=== PATIENT | male | born 1955 | race Caucasian/White ===

== ENCOUNTER 2022-12-27 06:20 | Emergency (ER) | payer MEDICARE, OTHER, SELFPAY ==
[2022-12-27] VITALS (13 sets, daily range): BP systolic 167–196; BP diastolic 90–114; PULSE 69–79; RESP 12–23; TEMP 36.9; O2SAT 97–98; BMI 39.2
--- NOTE | 2022-12-27 06:46 | ECG_ITS ---
[facility] Test Date: 2022-12-27 Pat Name: Kojo Saeed Department: Room: - Gender: Male Hospital Nurse Liaison: : 1955 Requested By: [id number] Order Number: [id number] Reading MD: VELASQUEZ MOJICA Measurements Intervals Telferner Rate: 77 P: 49 MD: 188 QRS: -69 QRSD: 138 T: 16 QT: 384 QTc: 416 Interpretive Statements 1100 Sinus rhythm 2450 Right bundle branch block 2630 Left anterior fascicular block 3113 Cannot rule out anterior myocardial infarction, probably old 9150 abnormal ECG No previous ECG available for comparison Electronically Signed On 12-29-2022 7:02:16 EST by VELASQUEZ MOJICA
--- NOTE | 2022-12-27 06:46 | XR_ITS ---
The [address] [address] Patient Name: JOCELYN HUSSEIN MRN: [id number] date: 1955 Sex: M Assigned Patient Location: ER Current Patient Location: ED.MAIN Accession/Order Number: [id number] Exam Date: 12/27/2022 06:50 Report Date: 12/27/2022 07:24 At the request of: VINCENZO BUSH Procedure: XR chest 1V EXAM: XR chest 1V HISTORY: Chest pain. COMPARISON: None. TECHNIQUE: AP erect portable chest radiograph performed. FINDINGS: The trachea is midline. The cardiac mediastinal silhouette and hilar shadows are unremarkable. The lung volumes are normal. The lung hammond are clear. Thorax. 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 XR/XR chest 1V IMPRESSION: There is no acute cardiopulmonary process. 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 Electronically authenticated by: ALKA HUNT Date: 12/27/2022 07:24
--- NOTE | 2022-12-27 07:11 | ED_ITS ---
HPI - Chest Pain General Chief Complaint: Chest Pain Stated Complaint: CHEST PAIN Time Seen by Provider: 12/27/22 06:46 Source: patient Mode of arrival: walk-in History of Present Illness HPI narrative: 67-year-old male presents for chest pain or it started four days ago. He thinks it might be related to him having difficulty starting his leaf blower and he was attempting to start it multiple times on two consecutive days with his left arm. The pain is on the left side of his chest and his elbow. The upper arm in the lower arm don't hurt. He has no cardiac history. No fever cough or direct injury. Related Data Allergies Allergy/AdvReac Type Severity Reaction Status Date / Time No Known Drug Allergies Allergy Verified 12/27/22 06:46 Review of Systems ROS Narrative A ten point review of systems is negative except as noted above. PFSH PFSH Social History Smoking status: Never smoker Exam Narrative Exam Narrative: Nurses note and vital signs reviewed and patient is not hypoxic. General: The patient appears well and in no apparent distress. Patient is resting comfortably on cart. Skin: Warm, dry, no pallor noted. There is no rash noted. Head: Normocephalic, atraumatic Eye: Normal conjunctiva, no drainage Ears, Nose, Mouth, and Throat: oral mucosa is moist. Nares patent. Cardiovascular: Regular Rate and Rhythm; minimal tenderness on palpation of the left chest musculature, no crepitus Respiratory: Patient is in no distress, no accessory muscle use, lungs are clear to auscultation, no wheezing, rales or rhonchi Back: non-tender GI: Normal bowel sounds, no tenderness to palpation, no masses appreciated. No rebound, guarding, or rigidity noted. Musculoskeletal: The patient has no evidence of calf tenderness, no pitting edema, symmetrical pulses noted bilaterally Neurological: A&O, normal speech Psychiatric: Cooperative Constitutional Vital Signs, click to edit/add: Last Vital Signs Temp 98.4 F 12/27/22 06:34 Pulse 78 12/27/22 07:50 Resp 14 12/27/22 07:50 BP 187/112 H 12/27/22 07:31 Pulse Ox 98 12/27/22 06:41 Course Vital Signs Vital signs: Vital Signs Temperature 98.4 F 12/27/22 06:34 Pulse Rate 73 12/27/22 06:34 Respiratory Rate 16 12/27/22 06:34 Blood Pressure 170/90 H 12/27/22 06:34 Temperature 98.4 F 12/27/22 06:34 Pulse Rate 78 12/27/22 07:50 Respiratory Rate 14 12/27/22 07:50 Blood Pressure 187/112 H 12/27/22 07:31 Pulse Oximetry 98 12/27/22 06:41 MDM - Chest Pain MDM Narrative Medical decision making narrative: his workup is negative including two troponins. The patient was given IV Toradol and his chest feels better. His left elbow is still sore. My clinical impression at this point is that this is muscle pain. He'll be discharged home and was recommended ibuprofen. Treatment diagnosis and follow-up were discussed with the patient. Differential Diagnosis Differential diagnosis: Likely pneumothorax, stable angina, unstable angina pectoris, atypical chest pain, st elevation myocardial infarction and costo chondritis Lab Data Attestation: I reviewed the patient's lab results. Labs: Lab Results 12/27/22 12/27/22 Range/Units 07:05 09:30 WBC 9.0 (4.0-11.0) 10^3/uL RBC 4.39 L (4.70-6.10) 10^6/uL Hgb 13.6 L (14.0-18.0) g/dL Hct 41.6 L (42.0-54.0) % MCV 94.8 H (80.0-94.0) fL MCH 31.0 (25.9-34.0) pg MCHC 32.7 (29.9-35.2) g/dL RDW 12.4 (11.0-15.0) % Plt Count 233 (150-450) 10^3/uL MPV 9.3 L (9.5-13.5) fL Neut % (Auto) 67.1 (43.0-75.0) % Lymph % (Auto) 15.9 L (20.5-60.0) % [place] % (Auto) 10.6 (1.7-12.0) % Eos % (Auto) 5.7 (0.9-7.0) % Baso % (Auto) 0.3 (0.2-2.0) % Neut # (Auto) 6.1 (1.4-6.5) 10^3/uL Lymph # (Auto) 1.4 (1.2-3.8) 10^3/uL [place] # (Auto) 1.0 H (0.3-0.8) 10^3/uL Eos # (Auto) 0.5 (0.0-0.7) 10^3/uL Baso # (Auto) 0.0 (0.0-0.1) 10^3/uL Abs Immat Gran (auto) 0.04 H (0.00-0.03) 10^3/uL Imm/Tot Granulo (auto) 0.4 (0.0-0.5) % PT 10.3 (9.0-11.6) sec INR 0.97 APTT 28.7 (22.3-36.2) sec Sodium 137 (136-145) mmol/L Potassium 4.5 (3.5-5.1) mmol/L Chloride 102 (98-107) mmol/L Carbon Dioxide 26.4 (21.0-32.0) mmol/L Anion Gap 13.1 BUN 26.0 H (7.0-18.0) mg/dL Creatinine 1.45 H (0.70-1.30) mg/dL Est GFR ( Amer) 59 L (>=60) Est GFR (Non-Af Amer) 48 L (>=60) BUN/Creatinine Ratio 17.9 Glucose 139 H (74-106) mg/dL Calcium 9.5 (8.5-10.1) mg/dL Total Bilirubin 0.8 (0.2-1.0) mg/dL AST 13 L (15-37) U/L ALT 21 (16-63) U/L Alkaline Phosphatase 96 (46-116) U/L Troponin I High Sens 5.8 5.8 (4.0-76.1) pg/mL Total Protein 8.2 (6.4-8.2) g/dL Albumin 4.4 (3.4-5.0) g/dL Globulin 3.8 g/dL Albumin/Globulin Ratio 1.2 Lipase 41.0 (16.0-77.0) U/L Imaging Data Chest x-ray: Radiologist's impression: Procedure: XR chest 1V EXAM: XR chest 1V HISTORY: Chest pain. COMPARISON: None. TECHNIQUE: AP erect portable chest radiograph performed. FINDINGS: The trachea is midline. The cardiac mediastinal silhouette and hilar shadows are unremarkable. The lung volumes are normal. The lung hammond are clear. Thorax. 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 IMPRESSION: There is no acute cardiopulmonary process. 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 Electronically authenticated by: ALKA HUNT Date: 12/27/2022 07:24 ECG Data Attestation: I personally reviewed and interpreted this ECG as follows: (EKG on my interpretation shows no acute findings) Heart Score History: Slightly/Non-Suspicious ECG: Normal Age: >65 years Risk Factors: 1 or 2 Risk Factors Troponin: <Normal Limit Total Heart Score Recommendations & Risks:: 3 Discharge Plan Discharge Chief Complaint: Chest Pain Clinical Impression: Chest wall pain Patient Disposition: Home, Self-Care Time of Disposition Decision: 10:00 Condition: Good Mode of Transportation: Private Vehicle Instructions: Chest Pain (ED), Chest Wall Pain (ED) Stand Alone Forms: Portal Instructions Referrals: Physician,Non-Staff, MD [Primary Care Provider] - 1 week
[2022-12-27 07:31] LABS: Basophils Percent Auto 0.3 % (0.2-2.0); Eosinophils Absolute Auto 0.5 10^3/uL (0.0-0.7); Eosinophils Percent Auto 5.7 % (0.9-7.0); Hematocrit 41.6 % (42.0-54.0); Hemoglobin 13.6 g/dL (14.0-18.0); Immature Granulocytes Abs Auto 0.04 10^3/uL (0.00-0.03); Immature Granulocytes Pct Auto 0.4 % (0.0-0.5); Lymphocytes Absolute Auto 1.4 10^3/uL (1.2-3.8); Lymphocytes Percent Auto 15.9 % (20.5-60.0); Mean Corpuscular HGB Conc 32.7 g/dL (29.9-35.2); Mean Corpuscular Volume 94.8 fL (80.0-94.0); Mean Platelet Volume 9.3 fL (9.5-13.5); Monocytes Percent Auto 10.6 % (1.7-12.0); Neutrophils Absolute Auto 6.1 10^3/uL (1.4-6.5); Neutrophils Percent Auto 67.1 % (43.0-75.0); Platelet Count 233 10^3/uL (150-450); Red Blood Count 4.39 10^6/uL (4.70-6.10); Red Cell Distribution Width 12.4 % (11.0-15.0)
[2022-12-27 07:50] LABS: Alanine Aminotransferase 21 U/L (16-63); Albumin Globulin Ratio 1.2; Albumin Level 4.4 g/dL (3.4-5.0); Alkaline Phosphatase 96 U/L (46-116); Anion Gap 13.1; Aspartate Amino Transferase 13 U/L (15-37); BUN Creatinine Ratio 17.9; Bilirubin Total 0.8 mg/dL (0.2-1.0); Calcium 9.5 mg/dL (8.5-10.1); Carbon Dioxide 26.4 mmol/L (21.0-32.0); Chloride 102 mmol/L (98-107); Estimated GFR (African America 59 (>=60); Estimated GFR (Non-African Ame 48 (>=60); Globulin 3.8 g/dL; Glucose 139 mg/dL (74-106); Potassium 4.5 mmol/L (3.5-5.1); Sodium 137 mmol/L (136-145); Total Protein 8.2 g/dL (6.4-8.2); Troponin I High Sensitivity 5.8 pg/mL (4.0-76.1)
[2022-12-27 07:54] LABS: INR 0.97; Partial Thromboplastin Time 28.7 sec (22.3-36.2); Prothrombin Time 10.3 sec (9.0-11.6)
[2022-12-27] MEDS: KETOROLAC TROMETHAMINE 30 MG/ML VIAL IVP (08:27)
[2022-12-27 09:55] LABS: Troponin I High Sensitivity 5.8 pg/mL (4.0-76.1)
== END 2022-12-27 10:12 | disposition home or self-care (01) ==
PROVIDERS: Student in an Organized Health Care Education/Training Program; Emergency Provider Emergency Medicine
DX: R07.89 Other chest pain (principal)
CPT/HCPCS: 36415; 71045; 80053; 83690; 84484; 85025; 85610; 85730; 93005; 96374; 99285

== ENCOUNTER 2023-09-06 09:20 | Outpatient (OUT) | payer MEDICARE, OTHER, SELFPAY ==
--- OUTSIDE RECORDS SUMMARY | 2023-09-06 09:30 | XMS_ITS | CCD ---
Author Organization [facility] Providers Care Director Of Patient Safety Name Role Phone PENELOPE WOMACK Primary Care Physician WOMACK ., DR PENELOPE George Primary Care Unavailable WOMACK ., DR PENELOPE George Admitting Unavailable WOMACK ., DR PENELOPE George Attending Unavailable WOMACK ., DR PENELOPE George Consulting Unavailable WOMACK ., DR PENELOPE George Primary Care Unavailable NILL ., DR BROWN Admitting Unavailable NILL ., DR BROWN Attending Unavailable NILL ., DR BROWN Consulting Unavailable FERNANDOFELICITY Hayes Consulting Unavailable GEMBUS, SAHIL Consulting Unavailable DERREK WHITMORE Consulting Unavailable WOMACK ., DR PENELOPE George Admitting Unavailable WOMACK ., DR PENELOPE George Attending Unavailable WOMACK ., DR PENELOPE George Consulting Unavailable WOMACK ., DR PENELOPE George Primary Care Unavailable WOMACK ., DR PENELOPE George Admitting Unavailable WOMACK ., DR PENELOPE George Attending Unavailable WOMACK ., DR PENELOPE George Consulting Unavailable WOMACK ., DR PENELOPE George Primary Care Unavailable NILL ., DR BROWN Admitting Unavailable NILL ., DR BROWN Attending Unavailable NILL ., DR BROWN Consulting Unavailable WOMACK ., DR PENELOPE George Primary Care Unavailable WOMACK ., DR PENELOPE George Primary Care Unavailable WOMACK ., DR PENELOPE George Admitting Unavailable WOMACK ., DR PENELOPE George Attending Unavailable WOMACK ., DR PENELOPE George Consulting Unavailable WOMACK ., DR PENELOPE George Primary Care Unavailable WOMACK ., DR PENELOPE George Admitting Unavailable WOMACK ., DR PENELOPE George Attending Unavailable WOMACK ., DR PENELOPE George Consulting Unavailable PENELOPE WOMACK Primary Care Physician Shivani Limon Primary Care Physician Shivani Limon. Attending Unavailable Shivani Limon Attending Unavailable Shivani Limon Attending Unavailable Shivani Limon Attending Unavailable Shivani Limon Attending Unavailable Shivani Limon Attending Unavailable Shivani Limon Attending Unavailable Shivani Limon Attending Unavailable Shivani Limno Admitting Unavailable Shivani Limon Attending Unavailable Shivani Limon Admitting Unavailable Shivani Limon Attending Unavailable Shivani Limon Admitting Unavailable Shivani Limon Attending Unavailable Robert Sandhu Attending Unavailable NANCY IZQUIERDO Attending Unavailable SHIVANI LIMON Referring Unavailable LIZ SHERMAN Attending Unavailable LIZ SHERMAN Referring Unavailable Allergies Allergy Classification Reported Allergen(s) Allergy Type Date of Onset Reaction(s) Facility (5 sources) Lisinopril; Translations: [lisinopril] Drug Allergy Unknown (qualifier value) General Surgery [place] (1 source) Amino Acids Drug Allergy [facility] Repository Medications Current Medications Medication Drug Class(es) Dates Sig (Normalized) Sig (Original) allopurinol 300 mg oral tablet (4 sources) Xanthine Oxidase Inhibitor Start: 06-23-2023 take 1 tablet by mouth once daily allopurinol 300 mg Tab See Instructions, TAKE 1 TABLET BY MOUTH EVERY DAY, # 90 tab(s), Refills(s) 1, Pharmacy: [id number], 170.2, cm, 01/03/23 9:22:00 EST, Height/Length Dosing, 112.5, kg, 06/23/23 8:09:00 EDT, Weight Dosing Start Date: 06/23/23 Status: Ordered Start: 12-06-2022 take 1 tablet by ubaldo th once daily allopurinol 300 mg Tab See Instructions, TAKE 1 TABLET BY MOUTH EVERY DAY, # 30 tab(s), Refills(s) 0, Pharmacy: [id number], 170.2, cm, 11/30/22 15:16:00 EDT, Height/Length Dosing, 114, kg, 11/30/22 15:16:00 EDT, Weight Dosing Start Date: 12/06/22 Status: Ordered Start: 11-03-2022 take 1 tablet by ubaldo th once daily allopurinol 300 mg Tab 300 mg = 1 tab(s), Oral, Daily, # 30 tab(s), Refills(s) 0, Pharmacy: [facility]/pharmacy #[id number], 170.2, cm, 06/01/22 8:48:00 EDT, Height/Length Dosing, 119.9, kg, 06/01/22 8:48:00 EDT, Weight Dosing Start Date: 11/03/22 Status: Ordered Start: 12-10-2021 take 1 tablet by ubaldo th once daily allopurinol 300 mg Tab 300 mg = 1 tab(s), Oral, Daily, Refills(s) 0 Start Date: 12/10/21 Status: Ordered atorvastatin 10 mg oral tablet (4 sources) HMG-CoA Reductase Inhibitor Start: 05-31-2023 take 1 tablet by mouth once daily atorvastatin 10 mg Tab See Instructions, TAKE 1 TABLET BY MOUTH EVERY DAY, # 30 tab(s), Refills(s) 0, Pharmacy: [facility] STORE [id number], 170.2, cm, 01/03/23 9:22:00 EST, Height/Length Dosing, 112.5, kg, 01/03/23 9:22:00 EST, Weight Dosing Start Date: 05/31/23 Status: Ordered Start: 12-30-2022 take 1 tablet by ubaldo once daily atorvastatin 10 mg Tab See Instructions, TAKE 1 TABLET BY MOUTH EVERY DAY, # 30 tab(s), Refills(s) 0, [id number] 170.2, cm, 12/30/22 15:16:00 EST, Height/Length Dosing, 112.6, kg, 12/30/22 15:16:00 EST, Weight Dosing Start Date: 12/30/22 Status: Ordered Start: 11-03-2022 take 1 tablet by ubaldo once daily atorvastatin 10 mg Tab 10 mg = 1 tab(s), Oral, Daily, # 30 tab(s), Refills(s) 0, [id number], 170.2, cm, 06/01/22 8:48:00 EDT, Height/Length Dosing, 119.9, kg, 06/01/22 8:48:00 EDT, Weight Dosing Start Date: 11/03/22 Status: Ordered Start: 12-10-2021 take 1 tablet by ubaldo once daily atorvastatin 10 mg Tab 10 mg = 1 tab(s), Oral, Daily, Refills(s) 0 Start Date: 12/10/21 Status: Ordered canagliflozin 100 mg oral tablet (3 sources) Sodium-Glucose Cotransporter 2 Inhibitor Start: 12-30-2022 take 1 tablet by mouth once daily Invokana 100 mg oral tablet 100 mg = 1 tab(s), Oral, Daily, # 30 tab(s), Refills(s) 0, [id number], 170.2, cm, 12/30/22 15:16:00 EST, Height/Length Dosing, 112.6, kg, 12/30/22 15:16:00 EST, Weight Dosing Start Date: 12/30/22 Status: Ordered Start: 06-30-2022 take 1 tablet by ubaldo th once daily Invokana 100 mg oral tablet 100 mg = 1 tab(s), Oral, Daily, # 30 tab(s), Refills(s) 0, [id number], 170.2, cm, 06/01/22 8:48:00 EDT, Height/Length Dosing, 119.9, kg, 06/01/22 8:48:00 EDT, Weight Dosing Start Date: 06/30/22 Status: Ordered hydroCHLOROthiazide 12.5 mg / losartan potassium 100 mg oral tablet (4 sources) Thiazide Diuretic, Angiotensin 2 Receptor Smooth Start: 04-04-2023 hydrochlorothiazide-losartan 12.5 mg-100 mg oral tablet 1 tab(s), Oral, Daily, 30 tab(s), Refill(s) 5, [id number] 170.[facility], cm, 01/03/23 9:22:00 EST, Height/Length Dosing, 112.5, kg, 01/03/23 9:22:00 EST, Weight Dosing Start Date: 04/04/23 Status: Ordered Start: 12-10-2021 take 1 tablet by ubaldo th once daily hydrochlorothiazide-losartan 12.5 mg-100 mg oral tablet 1 tab(s), Oral, Daily, Refill(s) 0 Start Date: 12/10/21 Status: Ordered levothyroxine sodium 0.075 mg oral tablet (3 sources) l-Thyroxine Start: 05-06-2023 take 1 tablet by mouth once daily levothyroxine 75 mcg (0.075 mg) Tab See Instructions, TAKE 1 TABLET BY MOUTH EVERY DAY, # 90 tab(s), Refills(s) 0, Pharmacy: [facility] STORE [id number], 170.2, cm, 01/03/23 9:22:00 EST, Height/Length Dosing, 112.5, kg, 01/03/23 9:22:00 EST, Weight Dosing Start Date: 05/06/23 Status: Ordered Start: 12-30-2022 take 1 tablet by ubaldo th once daily levothyroxine 75 mcg (0.075 mg) Tab See Instructions, TAKE 1 TABLET BY MOUTH EVERY DAY, # 90 tab(s), Refills(s) 0, [id number], 170.2, cm, 12/30/22 15:16:00 EST, Height/Length Dosing, 112.6, kg, 12/30/22 15:16:00 EST, Weight Dosing Start Date: 12/30/22 Status: Ordered Start: 09-20-2022 take 1 tablet by ubaldo once daily levothyroxine 75 mcg (0.075 mg) Tab See Instructions, TAKE 1 TABLET BY MOUTH EVERY DAY, # 90 tab(s), Refills(s) 0, Pharmacy: [facility] [id number], 170.2, cm, 06/01/22 8:48:00 EDT, Height/Length Dosing, 119.9, kg, 06/01/22 8:48:00 EDT, Weight Dosing Start Date: 09/20/22 Status: Ordered metFORMIN hydrochloride 500 mg oral tablet (4 sources) Biguanide Start: 12-30-2022 take 1 tablet by mouth three times daily metformin 500 mg Tab 500 mg = 1 tab(s), Oral, TID, # 270 tab(s), Refills(s) 1, [id number], 170.2, cm, 12/30/22 15:16:00 EST, Height/Length Dosing, 112.6, kg, 12/30/22 15:16:00 EST, Weight Dosing Start Date: 12/30/22 Status: Ordered Start: 09-17-2022 take 1 tablet by ubaldo three times daily metformin 500 mg Tab 500 mg = 1 tab(s), Oral, TID, # 270 tab(s), Refills(s) 1, [id number], 170.2, cm, 06/01/22 8:48:00 EDT, Height/Length Dosing, 119.9, kg, 06/01/22 8:48:00 EDT, Weight Dosing Start Date: 09/17/22 Status: Ordered Start: 12-10-2021 take 1 tablet by ubaldo th three times daily metformin 500 mg oral tablet 500 mg = 1 tab(s), Oral, TID, Refills(s) 0 Start Date: 12/10/21 Status: Ordered 24 hr metoprolol succinate 100 mg extended release oral tablet (4 sources) beta-Adrenergic Smooth Start: 12-30-2022 take 1 tablet by mouth once daily metoprolol 100 mg ER Tab 100 mg = 1 tab(s), Oral, Daily, # 90 tab(s), Refills(s) 3, Pharmacy: [facility]/pharmacy #[id number], 170.2, cm, 12/30/22 15:16:00 EST, Height/Length Dosing, 112.6, kg, 12/30/22 15:16:00 EST, Weight Dosing Start Date: 12/30/22 Status: Ordered Start: 06-01-2022 take 1 tablet by ubaldo th once daily metoprolol 100 mg ER Tab 100 mg = 1 tab(s), Oral, Daily, # 90 tab(s), Refills(s) 3, Pharmacy: [facility]/pharmacy #[id number], 170.2, cm, 06/01/22 8:48:00 EDT, Height/Length Dosing, 119.9, kg, 06/01/22 8:48:00 EDT, Weight Dosing Start Date: 06/01/22 Status: Ordered Start: 12-10-2021 take 1 tablet by ubaldo th once daily metoprolol 100 mg ER Tab 100 mg = 1 tab(s), Oral, Daily, Refills(s) 0 Start Date: 12/10/21 Status: Ordered mupirocin 0.02 mg/mg topical ointment (4 sources) RNA Synthetase Inhibitor Antibacterial Start: 06-01-2022 mupirocin Top 2% Oint 1 janell, Topical, TID, 30 gram, Refill(s) 1, [facility]/pharmacy #[id number], 170.2, cm, 06/01/22 8:48:00 EDT, Height/Length Dosing, 119.9, kg, 06/01/22 8:48:00 EDT, Weight Dosing Start Date: 06/01/22 Status: Ordered Start: 12-10-2021 mupirocin Top 2% Oint 1 janell, Topical, TID, Refill(s) 0 Start Date: 12/10/21 Status: Ordered Problems Active Problems Problem Classification Problem Date Documented Da te Episodic/Chronic Asthma (5 sources) Asthma; Translations: [Unspecified asthma, uncomplicated] Onset: 01-31-2022 12-10-2021 Chronic Calculus of urinary tract (4 sources) History of calculus of kidney 12-10-2021 Episodic Chronic kidney disease (3 sources) Chronic kidney disease stage 3A ; Translations: [Chronic kidney disease, stage 3a] Onset: 01-03-2023 Chronic Diabetes mellitus with complications (8 sources) Type 2 diabetes mellitus with unspecified complications; Translations: [Renal disorder due to type 2 diabetes mellitus] Onset: 12-16-2021 Chronic Diabetes mellitus without complication (5 sources) Diabetes mellitus; Translations: [Type 2 diabetes mellitus without complications] Onset: 06-10-2022 12-10-2021 Chronic Disorders of lipid metabolism (8 sources) Hyperlipidemia; Translations: [Hyperlipidemia, unspecified] Onset: 12-03-2021 12-10-2021 Chronic Essential hypertension (6 sources) Hypertensive disorder; Translations: [Essential (primary) hypertension] Onset: 06-10-2022 12-10-2021 Chronic Gout and other crystal arthropathies (5 sources) Gout; Translations: [Gout, unspecified] Onset: 06-10-2022 12-10-2021 Chronic Nonspecific chest pain (1 source) Chest pain 12-30-2022 Episodic Other ear and sense organ disorders (4 sources) Hearing loss 12-10-2021 Chronic Other male genital disorders (4 sources) Disorder of prostate 12-10-2021 Episodic Other male genital disorders (4 sources) Disorder of prostate, unspecified; Translations: [DISORDER OF PROSTATE UNSPECIFIED] Onset: 06-07-2022 Episodic Other nervous system disorders (4 sources) Gray's palsy 12-10-2021 Episodic Other non-traumatic joint disorders (1 source) Knee pain 06-23-2023 Episodic Other nutritional; endocrine; and metabolic disorders (1 source) Body mass index 40+ - severely obese 12-23-2021 Chronic Other nutritional; endocrine; and metabolic disorders (3 sources) Obese class III 06-01-2022 Chronic Other nutritional; endocrine; and metabolic disorders (1 source) Morbid obesity; Translations: [Morbid (severe) obesity due to excess calories] Onset: 01-03-2023 Chronic Other nutritional; endocrine; and metabolic disorders (1 source) Obese class II; Translations: [Body mass index (BMI) 38.0-38.9, adult] Onset: 01-03-2023 Chronic Residual codes; unclassified (4 sources) Obstructive sleep apnea syndrome 12-10-2021 Chronic Residual codes; unclassified (5 sources) Obstructive sleep apnea (adult) (pediatric); Translations: [OBSTRUCTIVE SLEEP APNEA] Onset: 01-08-2022 Chronic Spondylosis; intervertebral disc disorders; other back problems (4 sources) Sciatica 12-10-2021 Episodic Thyroid disorders (10 sources) Subclinical hypothyroidism; Translations: [Other specified hypothyroidism] Onset: 02-11-2022 12-10-2021 Chronic Unclassified (3 sources) Patient encounter status 12-23-2021 Unclassified (1 source) CONTACT W/AND (SUSP) EXPOS COVID-19; Translations: [CONTACT W/AND (SUSP) EXPOS COVID-19] Onset: 01-30-2022 Past or Other Problems Problem Classification Problem Date Documented Da te Episodic/Chronic Other aftercare (1 source) 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; Translations: [SENIOR CARE USE ORAL HYPOGLYCEMIC DX] Onset: 01-31-2022 Episodic Other aftercare (1 source) Other nursing home (current) drug therapy; Translations: [OTH SENIOR CARE CURRENT DRUG THERAPY] Onset: 01-31-2022 Episodic Other screening for suspected conditions (not mental disorders or infectious disease) (5 sources) Screening for malignant neoplasm of colon done; Translations: [Encounter for screening for malignant neoplasm of colon] Onset: 12-23-2021 Episodic Results Test Name Value Interpretation Reference Range Facil ity Surgical pathology studyon 0 08-22-2023 Surgical pathology study Pathology report.total SEE COMMENT Dermatopathology Report Case: [id number] Authorizing Provider: Jayy Garcia MD PhD Collected: 08/22/2023937 Ordering Location: [facility] Received: 08/22/2023937 [facility] Pathologist: Nabeel Mckoy MD Specimen: OUTSIDE BLOCK(S)/SLIDE(S), 2 SLIDES, [facility], #[id number] (BX: 07/20/23) Path report.final diagnosis SEE COMMENT 2 SLIDES, [facility], #[id number] (BX: 07/20/23) SKIN, RIGHT NOSE, SHAVE BIOPSY: MALIGNANT MELANOMA IN SITU, LENTIGO MALIGNA SUBTYPE, EXTENDING TO THE DEEP AND THE PERIPHERAL MARGINS IN THESE PLANES OF SECTION. Electronically signed out by NABEEL MCKOY MD Synoptic report SEE COMMENT MELANOMA OF THE SKIN: Biopsy MELANOMA OF THE SKIN: BIOPSY - A 8th Edition - Protocol posted: 05/13/2021 SPECIMEN Procedure: Biopsy, shave Specimen Laterality: Right TUMOR Tumor Site: Skin of other and unspecified parts of face: Right nose Histologic Type: Melanoma in situ, lentigo maligna type Ulceration: Not identified Tumor Regression: Not identified MARGINS: Margin Status for Melanoma in Situ: Melanoma in situ present at margin Margin(s) Involved by Melanoma in Situ: Peripheral: Both peripheral margins Margin(s) Involved by Melanoma in Situ: Deep: (via adnexal extension) PATHOLOGIC STAGE CLASSIFICATION (pTNM, AJCC 8th Edition): pT Category: pTis Comment(s): Tumor block is [facility] original case # [id number] Path report.relevant Hx Shave Tangential/Neoplasm of unspecified behavior of bone, soft tissue, and skin. Solar lentigo vs Lentigo maligna. 1.0 x 1.0 cm hyperpigmented patch. Path report.gross observation SEE COMMENT A. OUTSIDE BLOCK(S)/SLIDE(S). Received for consultation from [facility] are two slides labeled [id number] (Bx: 07/20/23) along with the corresponding pathology report. Path report.microscopic observation The Hematoxylin and Eosin stained sections of the trisected shave specimen reveals poorly nested atypical junctional melanocytes along the dermal-epidermal junction with confluence and pagetoid scatter. There is significant dermal solar elastosis. 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 The received deeper additional step sections were additionally reviewed. [facility] Ambulatory Comment on above: Order Comment: Mater ials Received: 2 SLIDES, [facility], #[id number] (BX: 07/20/23) Consultation Noteon 07-25-19 Consultation Note [id number] .00TIFF Normal [facility] Consultation Noteon 07-21-19 Consultation Note [id number]. 00TIFF Normal [facility] Ambulatory Visit Summaryon 0 06-30-2023 Ambulatory Visit Summary JOCELYN SAEED :1955 Visit Date:06/30/2023 Ambulatory Visit Instructions Your Diagnosis Type 2 diabetes mellitus with hyperlipidemia BMI 38.0-38.9,adult Class 1 obesity due to excess calories in adult Nonsmoker Hyperlipidemia, unspecified Your Care Team Attending Physician - Shivani Limon MD Primary Care Physician - Shivani Limon MD This Is Your Medications List empagliflozin (Jardiance 10 mg oral tablet) metformin (Glucophage XR 500 mg Tab-ER) Contact prescribing physician if questions or concerns allopurinol (allopurinol 300 mg Tab) atorvastatin (atorvastatin 10 mg Tab) hydrochlorothiazide-l osartan (hydrochlorothiazide- losartan 12.5 mg-100 mg oral tablet) levothyroxine (levothyroxine 75 mcg (0.075 mg) Tab) metoprolol (metoprolol 100 mg ER Tab) mupirocin topical (mupirocin Top 2% Oint) [Image Removed: STOP]Stop taking these medications canagliflozin (Invokana 100 mg oral tablet) Procedures Performed Cataract extraction, Cystoscopy, Lithotripsy, Tonsillectomy. Discharge Vitals Temperature (Temporal Artery) 36.4 ?C Heart Rate (Peripheral) 74 Respiratory Rate 18 Blood Pressure 150/84 Height 170.3 cm Height 67 in Weight 111.6 kg Weight 245.52 lb BMI 38.48 What to do next Scheduled Follow-Up Appointments 2023 10:30 AM EDT With: Shivani Limon MD Where: [facility] Invalid Interpretation Code [address] [place] [address]- \.br\ Tuesday 8:45 AM EST \.br\ With: Shivani Limon MD\.br\ Where: [facility] Medicine [facility] Office/Clini c Noteon 06-30-2023 [facility] Office/Clinic Note HPI Staff Jocelyn is a 68 year old male presenting for lab review, sugars have went way up labs done 06/23/23 glucose 217, Hgb A1C %: 10 % High (06/23/23 08:52:00) questions/concerns: History of Present Illness - Here for follow up - BS showed an A1c of a 10 - Pt states he did not watch what he ate and ate whatever he wanted - He has watched what he is eating now and BS are averaging in the 130s again. Physical Exam Vitals & Measurements T: 36.4 ?C(Temporal Artery) HR: 74(Peripheral) RR: 18 BP: 150/84 SpO2: 98% HT: 67 in HT: 170.3 cm WT: 111.6 kg WT: 245.52 lb BMI: 38.48 General: alert, no acute distress ENMT: oral mucosa moist, Cardiovascular: regular rate and rhythm, normal peripheral perfusion Respiratory: Lungs CTA, respirations non labored Extremities: no deformity, no trauma Neurological: oriented x 4, LOC appropriate for age, CN II-XII intact, motor strength equal & normal bilaterally, speech normal Abdomen: Soft, Nontender, Non-distended, + BS Assessment/Plan 1. Type 2 diabetes mellitus with hyperlipidemia (E11.69: Type 2 diabetes mellitus with other specified complication) - Will start Jardiance. - Change metformin - Follow up in 3 months 2. BMI 38.0-38.9,adult (Z68.38: Body mass index [BMI] 38.0-38.9, adult) - BMI education uploaded 3. Class 1 obesity due to excess calories in adult (E66.09: Other obesity due to excess calories) - Diet and exercise advised 4. Nonsmoker (Z78.9: Other specified health status) - Please continue to not smoke Hyperlipidemia, unspecified (E78.5: Hyperlipidemia, unspecified) - Continue on statins as before. - No issues with meds - Labs reviewed. Orders: empagliflozin, 10 mg = 1 tab(s), Oral, qAM, # 90 tab(s), Refills(s) 1, Pharmacy: [id number], 170.3, cm, 06/30/23 8:40:00 EDT, Height/Length Dosing, 111.6, kg, 06/30/23 8:40:00 EDT, Weight Dosing metformin, 1,000 mg = 2 tab(s), Oral, BID, # 390 tab(s), Refills(s) 0, Pharmacy: [facility]/pharmacy #[id number], 170.3, cm, 06/30/23 8:40:00 EDT, Height/Length Dosing, 111.6, kg, 06/30/23 8:40:00 EDT, Weight Dosing Follow-up No qualifying data available Patient Education BMI for Adults Problem List/Past Medical History Ongoing Asthma Gray's palsy Class 3 obesity Diabetic nephropathy Gout Hearing loss History of nephrolithiasis HTN (hypertension) Hyperlipidemia Left knee pain AVELINA (obstructive sleep apnea) Prostate disorder Sciatica Screening PSA (prostate specific antigen) Skin cancer screening Stage 3a chronic kidney disease (CKD) Subclinical hypothyroidism Type 2 diabetes mellitus with hyperlipidemia Historical No qualifying data Procedure/Surgical History Cataract extraction, Cystoscopy, Lithotripsy, Tonsillectomy. Medications allopurinol 300 mg Tab, See Instructions atorvastatin 10 mg Tab, See Instructions Glucophage XR 500 mg Tab-ER, 1000 mg= 2 tab(s), Oral, BID hydrochlorothiazide-l osartan 12.5 mg-100 mg oral tablet, 1 tab(s), Oral, Daily, 5 refills Jardiance 10 mg oral tablet, 10 mg= 1 tab(s), Oral, qAM, 1 refills levothyroxine 75 mcg (0.075 mg) Tab, See Instructions metoprolol 100 mg ER Tab, 100 mg= 1 tab(s), Oral, Daily, 3 refills mupirocin Top 2% Oint, 1 janell, Topical, TID, 1 refills Allergies lisinopril (Unknown) Social History Alcohol - Denies Alcohol Use, 12/23/2021 Substance Abuse - Denies Substance Abuse, 12/23/2021 Tobacco - Denies Tobacco Use, 12/23/2021 Never (less than 100 in lifetime) Tobacco Use:. Never Smokeless Tobacco Use:., 06/30/2023 Family History Cardiac arrest: Brother. Diabetes mellitus type 2: Mother and Brother. Heart disease: Father. Immunizations Vaccine Date Status Comments influenza virus vaccine, inactivated 11/30/2022 Given SARS-CoV-2 (COVID-19) [id number] 02/01/2022 Recorded influenza virus vaccine, inactivated 01/07/2022 Recorded influenza virus vaccine, inactivated 01/09/2021 Recorded SARS-CoV-2 (COVID-19) mRNA BNT-162b2 vax 12/16/2020 Recorded 2022-05-28: [id number] SARS-CoV-2 (COVID-19) mRNA BNT-162b2 vax 04/25/2020 Recorded 2022-05-28: [id number] SARS-CoV-2 (COVID-19) mRNA BNT-162b2 vax 04/04/2020 Recorded 2022-05-28: TPV65 pneumococcal 13-valent vaccine 12/21/2019 Recorded influenza virus vaccine, inactivated 12/21/2019 Recorded Normal [facility] Comment on above: Result Comment: Elec tronically Signed By: Geraldo HENDRICKS, Shivani Power.br\Date and Time Signed: 06/30/23 09:25 EDT Patient Educationon 06-30-19 Patient Education Nutrition BMI for Adults What is BMI? Body mass index (BMI) is a number that is calculated from a person's weight and height. BMI can help estimate how much of a person's weight is composed of fat. BMI does not measure body fat directly. Rather, it is an alternative to procedures that directly measure body fat, which can be difficult and expensive. BMI can help identify people who may be at higher risk for certain medical problems. What are BMI measurements used for? BMI is used as a screening tool to identify possible weight problems. It helps determine whether a person is obese, overweight, a healthy weight, or underweight. BMI is useful for: ? Identifying a weight problem that may be related to a medical condition or may increase the risk for medical problems. ? Promoting changes, such as changes in diet and exercise, to help reach a healthy weight. BMI screening can be repeated to see if these changes are working. How is BMI calculated? BMI involves measuring your weight in relation to your height. Both height and weight are measured, and the BMI is calculated from those numbers. This can be done either in [place] or metric measurements. Note that charts and online BMI calculators are available to help you find your BMI quickly and easily without having to do these calculations yourself. To calculate your BMI in [place] measurements: 1. Measure your weight in pounds (lb). 2. Multiply the number of pounds by 703. ? For example, for a person who weighs 180 lb, multiply that number by 703, which equals 126,540. 3. Measure your height in inches. Then multiply that number by itself to get a measurement called inches squared. ? For example, for a person who is 70 inches tall, the inches squared measurement is 70 inches x 70 inches, which equals 4,900 inches squared. 4. Divide the total from step 2 (number of lb x 703) by the total from step 3 (inches squared): 126,540 ? 4,900 = 25.8. This is your BMI. To calculate your BMI in metric measurements: 1. Measure your weight in kilograms (kg). 2. Measure your height in meters (m). Then multiply that number by itself to get a measurement called meters squared. ? For example, for a person who is 1.75 m tall, the meters squared measurement is 1.75 m x 1.75 m, which is equal to 3.1 meters squared. 3. Divide the number of kilograms (your weight) by the meters squared number. In this example: 70 ? 3.1 = 22.6. This is your BMI. What do the results mean? BMI charts are used to identify whether you are underweight, normal weight, overweight, or obese. The following guidelines will be used: ? Underweight: BMI less than 18.5. ? Normal weight: BMI between 18.5 and 24.9. ? Overweight: BMI between 25 and 29.9. ? Obese: BMI of 30 or above. Keep these notes in mind: ? Weight includes both fat and muscle, so someone with a muscular build, such as an athlete, may have a BMI that is higher than 24.9. In cases like these, BMI is not an accurate measure of body fat. ? To determine if excess body fat is the cause of a BMI of 25 or higher, further assessments may need to be done by a health care provider. ? BMI is usually interpreted in the same way for men and women. Where to find more information For more information about BMI, including tools to quickly calculate your BMI, go to these websites: ? Centers for Disease Control and Prevention: www.cdc.gov ? [place] Heart Association: www.heart.org ? National Heart, Lung, and Blood [employer]: www.nhlbi.nih.gov Summary ? Body mass index (BMI) is a number that is calculated from a person's weight and height. ? BMI may help estimate how much of a person's weight is composed of fat. BMI can help identify those who may be at higher risk for certain medical problems. ? BMI can be measured using Qatari measurements or metric measurements. ? BMI charts are used to identify whether you are underweight, normal weight, overweight, or obese. This information is not intended to replace advice given to you by your health care provider. Make sure you discuss any questions you have with your health care provider. Document Revised: 10/31/2019 Document Reviewed: 09/07/2019 [employer] Patient Education ? 2022 [employer]. [employer] [facility] Ambulatory Visit Summaryon 0 06-23-2023 Ambulatory Visit Summary JOCELYN SAEED :1955 Visit Date:06/23/2023 Ambulatory Visit Instructions Your Diagnosis Type 2 diabetes mellitus with hyperlipidemia Left knee pain Stage 3a chronic kidney disease (CKD) HTN (hypertension) BMI 38.0-38.9,adult Class 1 obesity due to excess calories in adult Nonsmoker Hyperlipidemia, unspecified Class 3 obesity Subclinical hypothyroidism AVELINA (obstructive sleep apnea) Gout Screening PSA (prostate specific antigen) Skin cancer screening Your Care Team Attending Physician - Shivani Limon MD Primary Care Physician - Shivani Lmion MD This Is Your Medications List allopurinol (allopurinol 300 mg Tab) atorvastatin (atorvastatin 10 mg Tab) canagliflozin (Invokana 100 mg oral tablet) hydrochlorothiazide-l osartan (hydrochlorothiazide- losartan 12.5 mg-100 mg oral tablet) levothyroxine (levothyroxine 75 mcg (0.075 mg) Tab) metformin (metformin 500 mg Tab) metoprolol (metoprolol 100 mg ER Tab) mupirocin topical (mupirocin Top 2% Oint) Procedures Performed Cataract extraction, Cystoscopy, Lithotripsy, Tonsillectomy. Discharge Vitals Temperature (Temporal Artery) 36.1 ?C Heart Rate (Peripheral) 64 Respiratory Rate 16 Blood Pressure 126/80 Weight 112.5 kg Weight 247.5 lb What to do next Scheduled Follow-Up Appointments Tuesday 8:00 AM EST With: Where: [facility] Invalid Interpretation Code [address] [place] [address]- \.br\ Someone Will Contact You Regarding These Appointments\.br \ [facility] External Ambulatory Referral, Orthopaedics, Dr. Marmolejo, 06/23/23 8:25:00 EDT, Type 2 diabetes mellitus with hyperlipidemia [facility] Ambulatory Visit Summary JOCELYN SAEED :1955 Visit Date:06/23/2023 Ambulatory Visit Instructions Your Diagnosis Type 2 diabetes mellitus with hyperlipidemia Left knee pain Stage 3a chronic kidney disease (CKD) HTN (hypertension) BMI 38.0-38.9,adult Class 1 obesity due to excess calories in adult Nonsmoker Hyperlipidemia, unspecified Class 3 obesity Subclinical hypothyroidism AVELINA (obstructive sleep apnea) Gout Screening PSA (prostate specific antigen) Skin cancer screening Your Care Team Attending Physician - Shivani Limon MD Primary Care Physician - Shivani Limon MD This Is Your Medications List allopurinol (allopurinol 300 mg Tab) atorvastatin (atorvastatin 10 mg Tab) canagliflozin (Invokana 100 mg oral tablet) hydrochlorothiazide-l osartan (hydrochlorothiazide- losartan 12.5 mg-100 mg oral tablet) levothyroxine (levothyroxine 75 mcg (0.075 mg) Tab) metformin (metformin 500 mg Tab) metoprolol (metoprolol 100 mg ER Tab) mupirocin topical (mupirocin Top 2% Oint) Procedures Performed Cataract extraction, Cystoscopy, Lithotripsy, Tonsillectomy. Discharge Vitals Temperature (Temporal Artery) 36.1 ?C Heart Rate (Peripheral) 64 Respiratory Rate 16 Blood Pressure 126/80 Weight 112.5 kg Weight 247.5 lb What to do next Scheduled Follow-Up Appointments Tuesday 8:00 AM EST With: Where: [facility] Invalid Interpretation Code [address] [place] [address]- \.br\ Someone Will Contact You Regarding These Appointments\.br \ [facility] External Ambulatory Referral, Orthopaedics, Dr. Marmolejo, 06/23/23 8:25:00 EDT, Type 2 diabetes mellitus with hyperlipidemia [facility] CBC w/ Auto Diffon 4 Basophils/100 WBC (Bld) 0.9 % Normal 0.0-2.0 [facility] Comment on above: Performed By: #### 1 0975600, 9008164, 46646170, 4062360, 8379636, 9627701, 046155561, 25676268 ####[facility] [address] [place] [address] Basophils/Leukocytes Auto (Bld) [Pure # fraction] 0.1 E9/L Normal 0.0-0.2 [facility] Comment on above: Performed By: #### 1 1183420, 0260820, 12133467, 1471428, 6853096, 6149727, 246037168, 11071841 ####[facility] [address] [place] [address] Eosinophils (Bld) [#/Vol] 0.6 E9/L High 0.0-0.5 [facility] Comment on above: Performed By: #### 1 7732273, 5018992, 61158554, 5066345, 8482199, 0794972, 626830798, 54945279 ####[address] [place] [address] Eosinophils/100 WBC (Bld) 7.7 % Normal 0.0-8.0 [facility] Comment on above: Performed By: #### 1 5181317, 8470694, 22019067, 2494373, 0425741, 4707794, 860952289, 46644117 ####[address] [place] [address] Erythrocyte distribution width (RBC) [Ratio] 13.9 % Normal 10.9-14.2 [facility] Comment on above: Performed By: #### 1 5572254, 6050952, 83225952, 2650122, 9642760, 0172289, 548142648, 11740558 ####[address] [place] [address] Hematocrit (Bld) [Volume fraction] 42.0 % Normal 37.7-49.0 [facility] Comment on above: Performed By: #### 1 0965046, 0328229, 15888058, 2755322, 4622272, 5831473, 756019165, 69673653 ####[address] [place] [address] Hemoglobin (Bld) [Mass/Vol] 13.9 g/dL Normal 13.5-17.5 [facility] Comment on above: Performed By: #### 1 1885041, 8651696, 25705300, 0373938, 5495045, 5949700, 101012644, 02024131 ####[address] [address] Lymphocytes (Bld) [#/Vol] 1.7 E9/L Normal 1.0-4.0 [facility] Comment on above: Performed By: #### 1 5472614, 9726958, 21459373, 0775741, 1151394, 3355457, 148756043, 95071683 ####[address] [address] Lymphocytes/100 WBC (Bld) 23.9 % Normal 14.0-50.0 [facility] Comment on above: Performed By: #### 1 3250878, 9576109, 75002361, 6816829, 0901172, 3102081, 859520057, 68442680 ####[address] [place] [address] MCH (RBC) [Entitic mass] 30.8 pg Normal 27.0-34.0 [facility] Comment on above: Performed By: #### 1 8462527, 8532153, 80728344, 3249863, 8036577, 7784455, 398076074, 18078913 ####[address] [address] MCHC (RBC) [Mass/Vol] 33.1 g/dL Normal 31.4-36.0 [facility] Comment on above: Performed By: #### 1 0162498, 2149529, 36409408, 8446320, 3374178, 1715691, 698047244, 45295157 ####[address] [place] [address] MCV (RBC) [Entitic vol] 93.0 fL Normal 80.0-100.0 [facility] Comment on above: Performed By: #### 1 1327034, 6538843, 04407343, 7493568, 4444345, 6363584, 439758916, 18532919 ####[address] [place] [address] Monocytes (Bld) [#/Vol] 0.8 E9/L Normal 0.2-1.0 [facility] Comment on above: Performed By: #### 1 9091356, 3122343, 22039370, 9437268, 0304496, 5764956, 664614638, 53757019 ####[address] [place] [address] Neutrophils (Bld) [#/Vol] 4.1 E9/L Normal 2.0-7.5 [facility] Comment on above: Performed By: #### 1 1704001, 5514855, 06561537, 6199176, 0247598, 8221189, 534126136, 32819979 ####[address] [place] [address] Neutrophils/100 WBC (Bld) 56.6 % Normal 36.0-75.0 [facility] Comment on above: Performed By: #### 1 0362937, 7253988, 58449866, 5037876, 7457730, 6979724, 878391110, 88065446 ####[address] [place] [address] Platelet mean volume (Bld) [Entitic vol] 8.6 fL Normal 6.4-10.8 [facility] Comment on above: Performed By: #### 1 4920311, 1310875, 02961461, 0521820, 2872040, 2549041, 435301449, 30426930 ####[facility] [address] [place] [address] Platelets (Bld) [#/Vol] 193.0 E9/L Normal 150.0-500.0 [facility] Comment on above: Performed By: #### 1 6980212, 3177969, 89408397, 5153727, 8006013, 4408285, 163492576, 17296907 ####[facility] [address] [place] [address] RBC (Bld) [#/Vol] 4.5 E12/L Normal 4.3-5.9 [facility] Comment on above: Performed By: #### 1 8884629, 7988247, 83901191, 8395146, 0316820, 6812020, 147057978, 11139267 ####[facility] [address] [place] [address] WBC corrected for nucl RBC Auto (Bld) [#/Vol] 7.3 E9/L Normal 4.0-11.0 [facility] Comment on above: Performed By: #### 1 6717337, 7519160, 60288828, 4606677, 8089638, 1908246, 024078707, 82368579 ####[facility] [address] [place] [address] CHEMISTRYOrdered By: SYSTEM SYSTEM on 06-23-2023 Albumin DL <= 20 mg/L (U) [Mass/Vol] 15.0 mg/dL High 0.0 - 1.9 mg/dL Remisol Chem Protein/Creatinine (U) [Ratio] 37.90 mg/gm Cr Normal 0.00 - 200.00 mg/gm Cr Remisol Chem U Creatinine 82.0 mg/dL Invalid Interpretation Code Remisol Chem Ur Total Protein 31.1 mg/dL Invalid Interpretation Code Remisol Chem Albumin [Mass/Vol] 4.3 g/dL Normal 3.3 - 5.0 gm/dL R emisol Chem Albumin/Globulin [Mass ratio] 1.4 {ratio} Normal 1.1 - 2.2 Remisol Chem ALP [Catalytic activity/Vol] 97 [iU]/d Normal 21 - 98 Int._Unit/L Remisol Chem ALT No additional P-5'-P [Catalytic activity/Vol] 17 [iU]/d Normal 6 - 46 Int._Unit/L Remisol Chem Anion gap [Moles/Vol] 15 mmol/L Normal 6 - 16 mEq/L Remisol Chem AST [Catalytic activity/Vol] 17 [iU]/d Normal 5 - 43 Int._Unit/L Remisol Chem Bilirubin [Mass/Vol] 0.7 mg/dL Normal 0.0 - 1.1 mg/dL Remisol Chem Calcium [Mass/Vol] 9.7 mg/dL Normal 8.9 - 11.1 mg/dL Remisol Chem Chloride [Moles/Vol] 104 mmol/L Normal 101 - 111 mmol/ L Remisol Chem Cholesterol [Mass/Vol] 171 mg/dL Normal 120 - 200 mg/dL Remisol Chem Cholesterol in HDL [Mass/Vol] 32 mg/dL Invalid Interpretation Code Remisol Chem Comment on above: Result Comment: '>= 60 LOW RISK' '<= 40 HIGH RISK' Cholesterol in LDL [Mass/Vol] 73 mg/dL Normal <=129mg/dL Remisol Chem CO2 [Moles/Vol] 23 mmol/L Normal 21 - 31 mmol/L Remis ol Chem Creatinine [Mass/Vol] 1.4 mg/dL High 0.5 - 1.3 mg/dL Remisol Chem eGFR 54 mL/min/1.73 m2 Low >=59mL/min /1.73 m2 Remisol Chem Globulin (S) [Mass/Vol] 3.1 g/dL Normal 1.4 - 4.0 gm/dL Remisol Chem Glucose [Mass/Vol] 217 mg/dL High 55 - 199 mg/dL Re misol Chem Potassium [Moles/Vol] 4.7 mmol/L Normal 3.5 - 5.3 mmol/L Remisol Chem Prostate specific Ag [Mass/Vol] 3.5 ng/mL Normal 0.1 - 3.5 ng/mL [facility] Chem Comment on above: Interpretive Data: T he concentration of PSA determined by different manufacturers can vary due to differences in assay methods and reagent specificity. Values obtained from different assay methods cannot be used interchangeably. The methodology used for this result was chemiluminescence using [employer]'s Access Hybritech PSA reagent. Protein [Mass/Vol] 7.4 g/dL Normal 6.0 - 7.8 gm/dL R emisol Chem Sodium [Moles/Vol] 137 mmol/L Normal 135 - 145 mmol/L Remisol Chem Triglyceride [Mass/Vol] 431 mg/dL High <=149mg/dL Remisol Chem TSH Qn 2.61 m[IU]/L Normal 0.34 - 5.60 mcIU/mL Remisol Chem Urate (U) [Mass/Vol] 4.6 mg/dL Normal 2.2 - 7.4 mg/dL Remisol Chem Urea nitrogen [Mass/Vol] 33 mg/dL High 5 - 21 mg/dL Remisol Chem Urea nitrogen/Creatinine [Mass ratio] 24 mg/mg High 10 - 20 Remisol Chem VLDL Unable to Calculate mg/dL Invalid Interpretation Code 7 - 40 mg/dL Remisol Chem Comment on above: Result Comment: 'ELLI BLE TO REPORT. TRIG > 400 mg/dl' CHEMISTRYOrdered By: Ela Smith on 06-23-2023 HbA1c (Bld) [Mass fraction] 10.0 % High <=5.9% [facility] ChemAutoSS CMPon 06-23-2023 Albumin [Mass/Vol] 4.3 g/dL Normal 3.3-5.0 [facility] Comment on above: Performed By: #### 1 8862279, 2107802, 13673537, 9073931, 6071553, 8559959, 912237416, 21604328 ####[facility] [address] [place] [address] Albumin/Globulin (S) [Mass conc ratio] 1.4 Normal 1.1-2.2 [facility] Comment on above: Performed By: #### 1 4495471, 5572873, 08977347, 7122058, 9414579, 2150759, 352142416, 66515467 ####[facility] [address] [place] [address] ALP [Catalytic activity/Vol] 97 Int._Unit/L Normal 21-98 [facility] Comment on above: Performed By: #### 1 7422044, 5195675, 20766197, 4807916, 8128372, 2698584, 827460616, 33177957 ####[facility] [address] [place] [address] ALT No additional P-5'-P [Catalytic activity/Vol] 17 Int._Unit/L Normal 6-46 [facility] Comment on above: Performed By: #### 1 2389825, 8681377, 47939516, 1501535, 8608797, 4095588, 455863218, 24589823 ####[facility] [address] [place] [address] AST [Catalytic activity/Vol] 17 Int._Unit/L Normal 5-43 [facility] Comment on above: Performed By: #### 1 0679183, 2472426, 78094039, 7016900, 7315403, 5193690, 586603161, 55597194 ####[facility] [address] [place] [address] Bilirubin [Mass/Vol] 0.7 mg/dL Normal 0.0-1.1 [facility] Comment on above: Performed By: #### 1 0051193, 2959016, 09924232, 4821840, 8139974, 3368754, 698554610, 88798138 ####[facility] [address] [place] [address] Globulin (S) [Mass/Vol] 3.1 g/dL Normal 1.4-4.0 [facility] Comment on above: Performed By: #### 1 9410058, 3309019, 06285730, 7661930, 3770965, 1369420, 595093855, 42613739 ####[facility] [address] [place] [address] Protein [Mass/Vol] 7.4 g/dL Normal 6.0-7.8 [facility] Comment on above: Performed By: #### 1 2154865, 9175973, 06454893, 1666643, 8983827, 5047563, 911892698, 12146999 ####[facility] [address] [place] [address] Anion gap [Moles/Vol] 15 mmol/L Normal 6-16 [facility] Comment on above: Performed By: #### 1 7964119, 0457400, 87084598, 8522757, 5665281, 3358020, 464189589, 00788133 ####[facility] [address] [place] [address] Calcium [Mass/Vol] 9.7 mg/dL Normal 8.9-11.1 [facility] Comment on above: Performed By: #### 1 1242404, 3879690, 69994965, 1208063, 3466189, 3542322, 581258873, 50839529 ####[facility] [address] [place] [address] Chloride [Moles/Vol] 104 mmol/L Normal 101-111 [facility] Comment on above: Performed By: #### 1 5573184, 9127666, 08353228, 8601513, 3801826, 9422463, 633695410, 61651359 ####[facility] [address] [place] [address] CO2 [Moles/Vol] 23 mmol/L Normal 21-31 [facility] Comment on above: Performed By: #### 1 9625188, 0981220, 73117444, 4982679, 6933367, 1893998, 674582492, 34307026 ####[facility] [address] [place] [address] Creatinine [Mass/Vol] 1.4 mg/dL High 0.5-1.3 [facility] Comment on above: Performed By: #### 1 2251205, 1765484, 31359423, 9976380, 0292830, 0483137, 270852711, 59797199 ####[facility] [address] [place] [address] Glucose [Mass/Vol] 217 mg/dL High 55-199 [facility] Comment on above: Performed By: #### 1 8099870, 6706013, 60322052, 7174355, 1111117, 7024231, 330032933, 18437016 ####[facility] [address] [place] [address] Potassium [Moles/Vol] 4.7 mmol/L Normal 3.5-5.3 [facility] Comment on above: Performed By: #### 1 0098077, 5305490, 38476906, 3174225, 8527676, 8244646, 791545513, 90751985 ####[facility] [address] [place] [address] Sodium [Moles/Vol] 137 mmol/L Normal 135-145 [facility] Comment on above: Performed By: #### 1 7302704, 7914523, 95146647, 2786726, 1553805, 4777772, 778897006, 09294965 ####[facility] [address] [place] [address] Urea nitrogen [Mass/Vol] 33 mg/dL High 5-21 [facility] Comment on above: Performed By: #### 1 3031770, 8318629, 42125908, 9095714, 3305747, 0312020, 709765098, 27866587 ####[facility] [address] [place] [address] Urea nitrogen/Creatinine [Mass ratio] 24 No Units High 10-20 [facility] Comment on above: Performed By: #### 1 7519803, 6678871, 78147144, 8975352, 8513244, 1786237, 716558679, 49896487 ####[facility] [address] [place] [address] [facility] Medicine Office/Clini c Noteon 06-23-2023 Family Medicine Office/Clinic Note HPI Staff Jocelyn is a 68 year old male presenting for 6 month follow up HTN, DM, CKD Do you have any of the following symptoms? Foot Exam: none Eye Exam: UTD Last A1C: Hgb A1C %: 6.8 % High (11/30/22 16:04:00) Statin: atorvastatin 10mg Patient is here for follow up on hypertension. How often are you checking your blood pressure? Doesnt check BP at home What are your average readings? N/A, Not checking at home Yearly BMP: 11/30/22 questions/concerns: feels he had an A1C done somewhere and it was 8 something wants to talk about his left knee, [address] Marmolejo told him he'd need a replacement, did the chicken/rooster shot and it worked but not anymore History of Present Illness BS are WNL per the patient. - Only concern is the L knee, Saw ortho for injections and now is wondering if he needs a replacement. - HTN: Normal today. - Reviewed life screening. Review of Systems PHQ Score Initial Depression Screen Score: 0 SCORE Physical Exam Vitals & Measurements T: 36.1 ?C(Temporal Artery) HR: 64(Peripheral) RR: 16 BP: 126/80 SpO2: 99% WT: 112.5 kg WT: 247.5 lb General: alert, no acute distress ENMT: oral mucosa moist, Cardiovascular: regular rate and rhythm, normal peripheral perfusion Respiratory: Lungs CTA, respirations non labored Extremities: no deformity, no trauma Neurological: oriented x 4, LOC appropriate for age, CN II-XII intact, motor strength equal & normal bilaterally, speech normal Abdomen: Soft, Nontender, Non-distended, + BS Assessment/Plan 1. Type 2 diabetes mellitus with hyperlipidemia (E11.69: Type 2 diabetes mellitus with other specified complication) - Was uncontrolled - Not taking Invokana - May need to increase meds - Labs ordered to recheck Ordered: Body Mass Index (BMI) documented 3008F CBC w/ Auto Diff Complex E&M Add on G2211 Comprehensive Metabolic Panel Current tobacco non-user 1036F Depression Screening Negative 3352F E&M of Est. Patient Moderate 30-39 Min 16416 [facility] External Ambulatory Referral [facility] External Ambulatory Referral HgbA1c Influenza immunization administered or previously received 4274F Lipid Panel Microalbumin Level Urine Most recent diastolic blood pressure 80-89 mm Hg 3079F Patient screen for fall risk: no falls in last year or 1 fall with no injury in last year 1101F PSA Screen, Total Systolic BP <130 mm Hg (Most Recent) 3074F TSH With T4fr Reflex U Protein/Creat Ratio Uric Acid 2. Left knee pain (M25.562: Pain in left knee) - Will refer Ordered: Complex E&M Add on G2211 E&M of Est. Patient Moderate 30-39 Min 22945 [facility] External Ambulatory Referral [facility] External Ambulatory Referral Uric Acid 3. Stage 3a chronic kidney disease (CKD) (N18.31: Chronic kidney disease, stage 3a) - Will recheck today Ordered: Body Mass Index (BMI) documented 3008F CBC w/ Auto Diff Complex E&M Add on G2211 Comprehensive Metabolic Panel Current tobacco non-user 1036F Depression Screening Negative 3352F E&M of Est. Patient Moderate 30-39 Min 22103 [facility] External Ambulatory Referral [facility] External Ambulatory Referral HgbA1c Influenza immunization administered or previously received 4274F Lipid Panel Microalbumin Level Urine Most recent diastolic blood pressure 80-89 mm Hg 3079F Patient screen for fall risk: no falls in last year or 1 fall with no injury in last year 1101F PSA Screen, Total Systolic BP <130 mm Hg (Most Recent) 3074F TSH With T4fr Reflex U Protein/Creat Ratio Uric Acid 4. HTN (hypertension) (I10: Essential (primary) hypertension) - At goal. - Will refill meds as needed - No issues with meds Ordered: Body Mass Index (BMI) documented 3008F CBC w/ Auto Diff Complex E&M Add on G2211 Comprehensive Metabolic Panel Current tobacco non-user 1036F Depression Screening Negative 3352F E&M of Est. Patient Moderate 30-39 Min 54315 [facility] External Ambulatory Referral [facility] External Ambulatory Referral HgbA1c Influenza immunization administered or previously received 4274F Lipid Panel Microalbumin Level Urine Most recent diastolic blood pressure 80-89 mm Hg 3079F Patient screen for fall risk: no falls in last year or 1 fall with no injury in last year 1101F PSA Screen, Total Systolic BP <130 mm Hg (Most Recent) 3074F TSH With T4fr Reflex U Protein/Creat Ratio Uric Acid 5. BMI 38.0-38.9,adult (Z68.38: Body mass index [BMI] 38.0-38.9, adult) - BMI education given Ordered: Body Mass Index (BMI) documented 3008F CBC w/ Auto Diff Complex E&M Add on G2211 Comprehensive Metabolic Panel Current tobacco non-user 1036F Depression Screening Negative 3352F E&M of Est. Patient Moderate 30-39 Min 13343 [facility] External Ambulatory Referral [facility] External Ambulatory Referral HgbA1c Influenza immunization administered or previously received 4274F Lipid Panel Microalbumin Level Urine Most recent diastolic blood pressure 80-89 mm Hg 3079F Patient s (more content not included)... Normal [facility] Comment on above: Result Comment: Elec tronically Signed By: Geraldo HENDRICKS, Shivani Power.br\Date and Time Signed: 06/23/23 08:34 EDT HEMATOLOGYOrdered By: SYSTEM SYSTEM on 06-23-2023 Basophils/100 WBC (Bld) 0.9 % Normal 0.0 - 2.0 % Remisol Heme Basophils/Leukocytes Auto (Bld) [Pure # fraction] 0.1 E9/L Normal 0.0 - 0.2 E9/L Remisol Heme Eosinophils (Bld) [#/Vol] 0.6 E9/L High 0.0 - 0.5 E9/L Remisol Heme Eosinophils/100 WBC (Bld) 7.7 % Normal 0.0 - 8.0 % Remisol Heme Erythrocyte distribution width (RBC) [Ratio] 13.9 % Normal 10.9 - 14.2 % Remisol Heme Hematocrit (Bld) [Volume fraction] 42.0 % Normal 37.7 - 49.0 % Remisol Heme Hemoglobin (Bld) [Mass/Vol] 13.9 g/dL Normal 13.5 - 17.5 gm/dL Remisol Heme Lymphocytes (Bld) [#/Vol] 1.7 E9/L Normal 1.0 - 4.0 E9/L Remisol Heme Lymphocytes/100 WBC (Bld) 23.9 % Normal 14.0 - 50.0 % Remisol Heme MCH (RBC) [Entitic mass] 30.8 pg Normal 27.0 - 34.0 pg Remisol Heme MCHC (RBC) [Mass/Vol] 33.1 g/dL Normal 31.4 - 36.0 gm/dL Remisol Heme MCV (RBC) [Entitic vol] 93.0 fL Normal 80.0 - 100.0 fL Remisol Heme Monocytes (Bld) [#/Vol] 0.8 E9/L Normal 0.2 - 1.0 E9/L Remisol Heme Monocytes/100 WBC (Bld) 10.9 % Normal 4.0 - 14.0 % Remisol Heme Neutrophils (Bld) [#/Vol] 4.1 E9/L Normal 2.0 - 7.5 E9/L Remisol Heme Neutrophils/100 WBC (Bld) 56.6 % Normal 36.0 - 75.0 % Remisol Heme Platelet mean volume (Bld) [Entitic vol] 8.6 fL Normal 6.4 - 10.8 fL Remisol Heme Platelets (Bld) [#/Vol] 193.0 E9/L Normal 150.0 - 500.0 E9/L Remisol Heme RBC (Bld) [#/Vol] 4.5 E12/L Normal 4.3 - 5.9 E12/L Re misol Heme WBC corrected for nucl RBC Auto (Bld) [#/Vol] 7.3 E9/L Normal 4.0 - 11.0 E9/L Remisol Heme [id number] 06-23-2023 HbA1c (Bld) [Mass fraction] 10.0 % High <=5.9 [facility] Comment on above: Performed By: #### 1 [id number], 6074633, [id number], 9688343, 6567573, 1847040, [id number], [id number] ####[facility] [address] [place] [address] Lipid Panelon 06-23-2023 VLDL UT Abnormal 7-40 [facility] Comment on above: Result Comment: 'ELLI BLE TO REPORT. TRIG > 400 mg/dl' Result verified by Discern Rule. Performed result [facility] (Unable to Calculate) was sent as an Alpha code due the inability to calculate a valid numeric value. Performed By: #### 1 [id number], 1673919, [id number], 5925643, 2050634, 9121851, [id number], [id number] ####[facility] [address] [place] [address] Cholesterol [Mass/Vol] 171 mg/dL Normal 120-200 [facility] Comment on above: Performed By: #### 1 [id number], 6986154, 40971848, 3815964, 3382996, 2416292, [id number], [id number] ####[facility] [address] [place] [address] Cholesterol in HDL [Mass/Vol] 32 mg/dL Invalid Interpretation Code [facility] Comment on above: Result Comment: '>= 60 LOW RISK' '<= 40 HIGH RISK' Performed By: #### 1 [id number], 4832903, 76995567, 2559712, 5049907, 4618674, [id number], [id number] ####[facility] [address] [place] [address] Cholesterol in LDL [Mass/Vol] 73 mg/dL Normal <=129 [facility] Comment on above: Performed By: #### 1 5650150, 1031335, 02368545, 7152483, 5421181, 0980348, [id number], 64218499 ####[facility] [address] [place] [address] Triglyceride [Mass/Vol] 431 mg/dL High <=149 [facility] Comment on above: Performed By: #### 1 7208541, 7751746, 87701329, 0901699, 1657811, 5258536, [id number], 26573159 ####[facility] [address] [place] [address] PSA Screen, Totalon 06-23-19 24 Prostate specific Ag [Mass/Vol] 3.5 ng/mL Normal 0.1-3.5 [facility] Comment on above: Result Comment: The concentration of PSA determined by different manufacturers can vary due to differences in assay methods and reagent specificity. Values obtained from different assay methods cannot be used interchangeably. The methodology used for this result was chemiluminescence using [employer]'s Access Hybritech PSA reagent. Performed By: #### 1 [id number], 4242403, 21383739, 0041192, 5771608, 6641208, [id number], 28762710 ####[facility] [address] [address] Patient Educationon 06-23-19 Patient Education Nutrition BMI for Adults What is BMI? Body mass index (BMI) is a number that is calculated from a person's weight and height. BMI can help estimate how much of a person's weight is composed of fat. BMI does not measure body fat directly. Rather, it is an alternative to procedures that directly measure body fat, which can be difficult and expensive. BMI can help identify people who may be at higher risk for certain medical problems. What are BMI measurements used for? BMI is used as a screening tool to identify possible weight problems. It helps determine whether a person is obese, overweight, a healthy weight, or underweight. BMI is useful for: ? Identifying a weight problem that may be related to a medical condition or may increase the risk for medical problems. ? Promoting changes, such as changes in diet and exercise, to help reach a healthy weight. BMI screening can be repeated to see if these changes are working. How is BMI calculated? BMI involves measuring your weight in relation to your height. Both height and weight are measured, and the BMI is calculated from those numbers. This can be done either in [place] or metric measurements. Note that charts and online BMI calculators are available to help you find your BMI quickly and easily without having to do these calculations yourself. To calculate your BMI in [place] measurements: 1. Measure your weight in pounds (lb). 2. Multiply the number of pounds by 703. ? For example, for a person who weighs 180 lb, multiply that number by 703, which equals 126,540. 3. Measure your height in inches. Then multiply that number by itself to get a measurement called inches squared. ? For example, for a person who is 70 inches tall, the inches squared measurement is 70 inches x 70 inches, which equals 4,900 inches squared. 4. Divide the total from step 2 (number of lb x 703) by the total from step 3 (inches squared): 126,540 ? 4,900 = 25.8. This is your BMI. To calculate your BMI in metric measurements: 1. Measure your weight in kilograms (kg). 2. Measure your height in meters (m). Then multiply that number by itself to get a measurement called meters squared. ? For example, for a person who is 1.75 m tall, the meters squared measurement is 1.75 m x 1.75 m, which is equal to 3.1 meters squared. 3. Divide the number of kilograms (your weight) by the meters squared number. In this example: 70 ? 3.1 = 22.6. This is your BMI. What do the results mean? BMI charts are used to identify whether you are underweight, normal weight, overweight, or obese. The following guidelines will be used: ? Underweight: BMI less than 18.5. ? Normal weight: BMI between 18.5 and 24.9. ? Overweight: BMI between 25 and 29.9. ? Obese: BMI of 30 or above. Keep these notes in mind: ? Weight includes both fat and muscle, so someone with a muscular build, such as an athlete, may have a BMI that is higher than 24.9. In cases like these, BMI is not an accurate measure of body fat. ? To determine if excess body fat is the cause of a BMI of 25 or higher, further assessments may need to be done by a health care provider. ? BMI is usually interpreted in the same way for men and women. Where to find more information For more information about BMI, including tools to quickly calculate your BMI, go to these websites: ? Centers for Disease Control and Prevention: www.cdc.gov ? [place] Heart Association: www.heart.org ? National Heart, Lung, and Blood [employer]: www.nhlbi.nih.gov Summary ? Body mass index (BMI) is a number that is calculated from a person's weight and height. ? BMI may help estimate how much of a person's weight is composed of fat. BMI can help identify those who may be at higher risk for certain medical problems. ? BMI can be measured using [place] measurements or metric measurements. ? BMI charts are used to identify whether you are underweight, normal weight, overweight, or obese. This information is not intended to replace advice given to you by your health care provider. Make sure you discuss any questions you have with your health care provider. Document Revised: 10/31/2019 Document Reviewed: 09/07/2019 [employer] Patient Education ? 2022 [employer]. [facility] Physician Referralon 024 Physician Referral [id number]# 1.00TIFF Normal [facility] Physician Referral [id number]# 1.00TIFF Normal [facility] TSH With T4fr Reflexon 06-22 TSH Qn 2.61 m[IU]/L Normal 0.34-5.60 [facility] Comment on above: Performed By: #### 1 8202496, 5539307, 14812710, 9309399, 3604025, 4955403, 177561291, 48524652 ####[facility] [address] [place] [address] U Microalbon 06-23-2023 Albumin DL <= 20 mg/L (U) [Mass/Vol] 15.0 mg/dL High 0.0-1.9 [facility] Comment on above: Order Comment: Jasmine barbour office Performed By: #### 1 [id number], [id number] ####[facility] [address] [place] [address] U Protein/Creat Ratioon Protein/Creatinine (U) [Ratio] 37.90 mg/gm Cr Normal .00-200.00 [facility] Comment on above: Performed By: #### 1 1547183, [id number] ####[facility] [address] [place] [address] U Creatinine 82.0 mg/dL Invalid Interpretation Code [facility] Comment on above: Performed By: #### 1 2684931, [id number] ####[facility] [address] [place] [address] Ur Total Protein 31.1 mg/dL Invalid Interpretation Code [facility] Comment on above: Performed By: #### 1 2044044, [id number] ####[facility] [address] [place] [address] Uric Acidon 06-23-2023 Urate (U) [Mass/Vol] 4.6 mg/dL Normal 2.2-7.4 [facility] Comment on above: Performed By: #### 1 6952675, 1143599, 29671570, 6306488, 6518942, 9221685, 935129888, 96446771 ####[facility] [address] [place] [address] eGFRon 06-23-2023 eGFR 54 mL/min/1.73 m2 Low >=59 [facility] Comment on above: Order Comment: Order added by Discern Expert. Performed By: #### 1 2563659, 7266436, 39208193, 2406729, 3043062, 8829201, 086685796, 85735896 ####[facility] [address] [place] [address] Lab Reportson 04-26-2023 Lab Reports [id number]#1 .00TIFF Normal [facility] Outside Diabetes Eye Examon 01-19-2023 Outside Diabetes Eye Exam [id number]#1. 00TIFF Normal [facility] ECG 12-Leadon 01-06-2023 ECG 12-Lead [id number]#1 .00TIFF Normal [facility] ED Note-Physicianon 01-07-20 ED Note-Physician [id number]# 1.00TIFF Normal [facility] Lab Reportson 01-06-2023 Lab Reports [id number]# 1.00TIFF Normal [facility] RAD - MISCon 01-06-2023 RAD - MISC [id number]# 1.00TIFF Normal [facility] Ambulatory Visit Summaryon 03-05-2022 Ambulatory Visit Summary JOCELYN SAEED :1955 Visit Date:01/03/2023 Ambulatory Visit Instructions Your Diagnosis Encounter for subsequent annual wellness visit (AWV) in Medicare patient Diabetic nephropathy HTN (hypertension) Hyperlipidemia, Hyperlipidemia, unspecified Stage 3a chronic kidney disease (CKD) Subclinical hypothyroidism Type 2 diabetes mellitus with hyperlipidemia Class 3 obesity Adult BMI 38.0-38.9 kg/sq m Your Care Team Attending Physician - Robert Sandhu DO Primary Care Physician - Shivani Limon MD This Is Your Medications List allopurinol (allopurinol 300 mg Tab) atorvastatin (atorvastatin 10 mg Tab) canagliflozin (Invokana 100 mg oral tablet) hydrochlorothiazide-l osartan (hydrochlorothiazide- losartan 12.5 mg-100 mg oral tablet) levothyroxine (levothyroxine 75 mcg (0.075 mg) Tab) metformin (metformin 500 mg Tab) metoprolol (metoprolol 100 mg ER Tab) mupirocin topical (mupirocin Top 2% Oint) Procedures Performed Cataract extraction, Cystoscopy, Lithotripsy, Tonsillectomy. Discharge Vitals Heart Rate (Peripheral) 70 Respiratory Rate 16 Blood Pressure 132/80 Height 170.2 cm Height 67 in Weight 112.5 kg Weight 247.5 lb BMI 38.84 What to do next Scheduled Follow-Up Appointments June. 2023 8:00 AM EDT With: Shivani Limon MD Where: [place] [id number]- \.br\ Medications\.br\ What How Much When Instructions\.br \ Unchanged allopurinol (allopurinol 300 mg Tab) See instructions TAKE 1 TABLET BY MOUTH EVERY DAY \.br\ Unchanged atorvastatin (atorvastatin 10 mg Tab) See instructions TAKE 1 TABLET BY MOUTH EVERY DAY \.br\ Unchanged canagliflozin (Invokana 100 mg oral tablet) 1 Tablets By Mouth Every day\.br\ Unchanged hydrochlorothiaz sonny-losartan (hydrochlorothia zide-losartan 12.5 mg-100 mg oral tablet) 1 Tablets By Mouth Every day\.br\ Unchanged levothyroxine (levothyroxine 75 mcg (0.075 mg) Tab) See instructions TAKE 1 TABLET BY MOUTH EVERY DAY \.br\ Unchanged metformin (metformin 500 mg Tab) 1 Tablets By Mouth 3 times a day\.br\ Unchanged metoprolol (metoprolol 100 mg ER Tab) 1 Tablets By Mouth Every day\.br\ Unchanged mupirocin topical (mupirocin Top 2% Oint) 1 Application Topical 3 times a day\.br\ Allergies\.br\ lisinopril (Unknown)\.br\ Problems\.br\ Ongoing - Any problem that you are currently receiving treatment for.\.br\ Asthma\.br\ Gray's palsy\.br\ Chest pain\.br\ Class 3 obesity\.br\ Diabetic nephropathy\.br\ Gout\.br\ Hearing loss\.br\ History of nephrolithiasis\ .br\ HTN (hypertension)\. br\ Hyperlipidemia\. br\ AVELINA (obstructive sleep apnea)\.br\ Prostate disorder\.br\ Sciatica\.br\ Stage 3a chronic kidney disease (CKD)\.br\ Subclinical hypothyroidism\. br\ Type 2 diabetes mellitus with hyperlipidemia\. br\ Patient Survey\.br\ You may receive a survey via text or e-mail asking about your office visit. Please share your experience with us by completing your survey. We appreciate your feedback and thank you for choosing us for your care.\.br\ \.br\ [facility] Family Medicine Office/Clini c Noteon 01-03-2023 Family Medicine Office/Clinic Note Chief Complaint Subsequent AWV Review of Systems PHQ Score Initial Depression Screen Score: 1 SCORE Physical Exam Vitals & Measurements HR: 70(Peripheral) RR: 16 BP: 132/80 SpO2: 99% HT: 170.2 cm HT: 67 in WT: 112.5 kg WT: 247.5 lb BMI: 38.84 Assessment/Plan 1. Encounter for subsequent annual wellness visit (AWV) in Medicare patient (Z00.00: Encounter for general adult medical examination without abnormal findings) The patient was given a customized and personalized print out of all the current AHRQ USPSTF?s recommendations for preventative services and all current CDC recommended immunizations, relevant risk recommendations and the following patient brochures were given. Reviewed What can I expect during my Medicare preventative care visit CDC-Falls Prevention and home safety screening reviewed. Patient denies any falls in last 12 months, voices no worry about falling, exhibits no problems with sitting and standing. Pt voices understanding with keeping walk way area free of clutter to prevent tripping and/or falling. [place] Advance Directives reviewed, pt will bring in a copy once completed. Patient denies any problems with ADL?s and Instrumental ADL?s. Cognitive screening completed with memory and clock face drawing. Immunization Record reviewed with the patient. Discussed Shingrix vaccine with educational handout and availability. COVID vaccines have been administered, immunization record is up to date. Allergies and medications reviewed and up to date. Patient denies concerns with taking medication as prescribed, reviewed OTC medications with patient with medication list up to date. Blood tests were reviewed: Discussed what tests need to be updated. Colonoscopy up to date, due for repeat 01/2032. Reviewed concerns with bladder control over past 6 months with no concerns. Reviewed pain symptoms with patient: Reviewed all outside providers that patient follows. Last visit summary notes available in chart and/or have been requested. Follow up scheduled 06/23/2023. AWV has been scheduled 01/09/2024 Medicare provides yearly screening for alcohol and depression concerns. This is completed during our Medicare wellness visit for those who do not have a current diagnosis of depression or concerns with alcohol use. I spent a total of 12 minutes on this date of service which included preparing to see the patient, face to face patient care, completing clinical documentation, obtaining and/or reviewing separately obtained history, counseling and educating the patient with handouts. Explanations were provided with reviewing questionnaires. AUDIT risk assessment screening completed, risk score (0) with patient denying concerns with use. Completed PHQ-2 risk assessment for depression with risk score (0), negative findings. Patient has been reminded to notify the provider if there would be a change or concerns with symptoms with fear, unable to sleep, worrying too much or feeling down and/or sad with lost of interest with daily activities. Will continue to monitor with screening yearly during Medicare wellness visits. 2. Diabetic nephropathy (E11.21: Type 2 diabetes mellitus with diabetic nephropathy) Reviewed health kidney nutritional handout with importance of preventing strain on the kidneys. Monitor sodium intake daily, educational handout reviewed and provided to assist the patient with a better understanding which types of food, including frozen foods, canned food and fast foods. Work towards a dietary intake with low potassium foods and limit protein intake. Reminded importance to avoid NSAID use and monitor for swelling in the body. Continue to monitor BP with importance of keeping under control with repeated blood work to be ordered as directed with PCP. Follows up with Nephrology as directed 3. HTN (hypertension) (I10: Essential (primary) hypertension) Patient is taking Metoprolol and Hyzaar daily as directed. Does monitor BP pressure at home. Reviewed with pt BP goal to be <140/90. Reviewed different factors that can alter blood pressure readings. Education handout provided with s/s to monitor for and report to provider. Patient is encouraged to increase portions of fruit, vegetables, fiber and increase exercise as much as tolerable. Reviewed importance with monitoring foods high in salt content and encouraged to limit intake, if unsure encouraged to discuss with their PCP. Encouraged to eat more chicken, fish and lean white meats and limits red meats in diet. Discussed importance with keeping BP under good control to reduce CVA risk factors. Will continue to f/u with PCP during office visits and as needed. 4. Hyperlipidemia, (E78.5: Hyperlipidemia, unspecified)Hyperlipi demia, unspecified The role of Statins extends beyond lowering blood levels of cholesterol and LDL and CKD. Statins can also reduce inflammation which increases risk factors for heart disease due to plaque buildup. Reviewed symptoms to monitor for and report to PCP ie: cramping (more content not included)... Normal [facility] Comment on above: Result Comment: Elec tronically Signed By: Robert Sandhu DO\.br\Date and Time Signed: 01/03/23 12:46 EST\.br\Electronically Co-Signed By: Eren Montoya LPN\.br\Date and Time Co-Signed: 01/03/23 10:48 EST [place] 01-03-2023 Screens [id number]#1 .00TIFF [facility] Ambulatory Visit Summaryon 1 03-01-2022 Ambulatory Visit Summary JOCELYN SAEED :1955 Visit Date:12/30/2022 Ambulatory Visit Instructions Your Diagnosis HTN (hypertension) BMI 38.0-38.9,adult Class 1 obesity due to excess calories in adult Nonsmoker Stage 3a chronic kidney disease (CKD) Your Care Team Attending Physician - Shivani Limon MD Primary Care Physician - Ross MD, Shivani E. This Is Your Medications List allopurinol (allopurinol 300 mg Tab) atorvastatin (atorvastatin 10 mg Tab) canagliflozin (Invokana 100 mg oral tablet) hydrochlorothiazide-l osartan (hydrochlorothiazide- losartan 12.5 mg-100 mg oral tablet) levothyroxine (levothyroxine 75 mcg (0.075 mg) Tab) metformin (metformin 500 mg Tab) metoprolol (metoprolol 100 mg ER Tab) mupirocin topical (mupirocin Top 2% Oint) Procedures Performed Cataract extraction, Cystoscopy, Lithotripsy, Tonsillectomy. Discharge Vitals Temperature (Oral) 36.7 ?C Heart Rate (Peripheral) 78 Respiratory Rate 16 Blood Pressure 138/84 Height 170.2 cm Height 67 in Weight 112.6 kg Weight 247.72 lb BMI 38.87 What to do next Scheduled Follow-Up Appointments Tuesday 8:30 AM EST With: Where: [address] \.br\ Medications\.br\ What How Much When Instructions\.br \ Unchanged allopurinol (allopurinol 300 mg Tab) See instructions TAKE 1 TABLET BY MOUTH EVERY DAY \.br\ Unchanged atorvastatin (atorvastatin 10 mg Tab) See instructions TAKE 1 TABLET BY MOUTH EVERY DAY \.br\ Unchanged canagliflozin (Invokana 100 mg oral tablet) 1 Tablets By Mouth Every day\.br\ Unchanged hydrochlorothiaz sonny-losartan (hydrochlorothia zide-losartan 12.5 mg-100 mg oral tablet) 1 Tablets By Mouth Every day\.br\ Unchanged levothyroxine (levothyroxine 75 mcg (0.075 mg) Tab) See instructions TAKE 1 TABLET BY MOUTH EVERY DAY \.br\ Unchanged metformin (metformin 500 mg Tab) 1 Tablets By Mouth 3 times a day\.br\ Unchanged metoprolol (metoprolol 100 mg ER Tab) 1 Tablets By Mouth Every day\.br\ Unchanged mupirocin topical (mupirocin Top 2% Oint) 1 Application Topical 3 times a day\.br\ Allergies\.br\ lisinopril (Unknown)\.br\ Problems\.br\ Ongoing - Any problem that you are currently receiving treatment for.\.br\ Asthma\.br\ Gray's palsy\.br\ Class 3 obesity\.br\ Diabetic nephropathy\.br\ Gout\.br\ Hearing loss\.br\ History of nephrolithiasis\ .br\ HTN (hypertension)\. br\ Hyperlipidemia\. br\ AVELINA (obstructive sleep apnea)\.br\ Prostate disorder\.br\ Sciatica\.br\ Stage 3a chronic kidney disease (CKD)\.br\ Subclinical hypothyroidism\. br\ Type 2 diabetes mellitus with hyperlipidemia\. br\ Patient Survey\.br\ You may receive a survey via text or e-mail asking about your office visit. Please share your experience with us by completing your survey. We appreciate your feedback and thank you for choosing us for your care.\.br\ \.br\ [facility] Family Medicine Office/Clinlane c Gisell 12-30-2022 Family Medicine Office/Clinic Note HPI Staff Jocelyn is a 67 year old male presenting for one month follow up htn Review labs from 11/30/22 Patient is here for follow up on hypertension. How often are you checking your blood pressure? Doesnt check BP at home What are your average readings? N/A, Not checking at home Yearly BMP: 11/30/22 flu: UTD 11/30/22 questions/concerns: went to ER tuesday had chest pains everything checked out fine, was a muscle strain and he's fine now History of Present Illness - Here for follow up. - Recently seen in the ER for CP - After working in the yard - May have pulled a muscle - Work up in the ER was negative per his report - Pt is still worried about cardiac causes. Physical Exam Vitals & Measurements T: 36.7 ?C(Oral) HR: 78(Peripheral) RR: 16 BP: 138/84 SpO2: 98% HT: 67 in HT: 170.2 cm WT: 112.6 kg WT: 247.72 lb BMI: 38.87 General: alert, no acute distress ENMT: oral mucosa moist, Cardiovascular: normal peripheral perfusion Respiratory: respirations non labored Extremities: no deformity, no trauma Neurological: oriented x 4, LOC appropriate for age, CN II-XII intact, motor strength equal & normal bilaterally, speech normal Abdomen: Soft, Nontender, Non-distended, + BS Assessment/Plan 1. HTN (hypertension) (I10: Essential (primary) hypertension) - At goal at this time. - Follow up in 6 months Ordered: Body Mass Index (BMI) documented 3008F Current tobacco non-user 1036F Depression Screening Negative 3352F Influenza immunization administered or previously received 4274F Most recent diastolic blood pressure 80-89 mm Hg 3079F Patient screen for fall risk: no falls in last year or 1 fall with no injury in last year 1101F Systolic BP 130-139 mm Hg (Most Recent) 3075F 2. Stage 3a chronic kidney disease (CKD) (N18.31: Chronic kidney disease, stage 3a) - Continue to monitor 3. Type 2 diabetes mellitus with hyperlipidemia (E11.69: Type 2 diabetes mellitus with other specified complication) - Controlled at this time. - Advised diet and exercise 4. Chest pain (R07.9: Chest pain, unspecified) - Will do stress test. - Possible pulled muscle, but will check Ordered: NM Myocardial Spect Rest/Stress 1 Day 5. Class 1 obesity due to excess calories in adult (E66.09: Other obesity due to excess calories) - Diet and exercise advised Ordered: Body Mass Index (BMI) documented 3008F Current tobacco non-user 1036F Depression Screening Negative 3352F Influenza immunization administered or previously received 4274F Most recent diastolic blood pressure 80-89 mm Hg 3079F Patient screen for fall risk: no falls in last year or 1 fall with no injury in last year 1101F Systolic BP 130-139 mm Hg (Most Recent) 3075F 6. Nonsmoker (Z78.9: Other specified health status) - Please continue not to smoke Ordered: Body Mass Index (BMI) documented 3008F Current tobacco non-user 1036F Depression Screening Negative 3352F Influenza immunization administered or previously received 4274F Most recent diastolic blood pressure 80-89 mm Hg 3079F Patient screen for fall risk: no falls in last year or 1 fall with no injury in last year 1101F Systolic BP 130-139 mm Hg (Most Recent) 3075F 7. BMI 38.0-38.9,adult (Z68.38: Body mass index [BMI] 38.0-38.9, adult) - BMI education given Ordered: Body Mass Index (BMI) documented 3008F Current tobacco non-user 1036F Depression Screening Negative 3352F Influenza immunization administered or previously received 4274F Most recent diastolic blood pressure 80-89 mm Hg 3079F Patient screen for fall risk: no falls in last year or 1 fall with no injury in last year 1101F Systolic BP 130-139 mm Hg (Most Recent) 3075F Hyperlipidemia, unspecified (E78.5: Hyperlipidemia, unspecified) - Continue on a statin Orders: atorvastatin, See Instructions, TAKE 1 TABLET BY MOUTH EVERY DAY, # 30 tab(s), Refills(s) 0, [id number], 170.2, cm, 12/30/22 15:16:00 EST, Height/Length Dosing, 112.6, kg, 12/30/22 15:16:00 EST, Weight Dosing canagliflozin, 100 mg = 1 tab(s), Oral, Daily, # 30 tab(s), Refills(s) 0, [id number], 170.2, cm, 12/30/22 15:16:00 EST, Height/Length Dosing, 112.6, kg, 12/30/22 15:16:00 EST, Weight Dosing levothyroxine, See Instructions, TAKE 1 TABLET BY MOUTH EVERY DAY, # 90 tab(s), Refills(s) 0, [id number], 170.2, cm, 12/30/22 15:16:00 EST, Height/Length Dosing, 112.6, kg, 12/30/22 15:16:00 EST, Weight Dosing metformin, 500 mg = 1 tab(s), Oral, TID, # 270 tab(s), Refills(s) 1, [id number], 170.2, cm, 12/30/22 15:16:00 EST, Height/Length Dosing, 112.6, kg, 12/30/22 15:16:00 EST, Weight Dosing metoprolol, 100 mg = 1 tab(s), Oral, Daily, # 90 tab(s), Refills(s) 3, Pharmacy: [facility] #[id number], 170.2, cm, 12/30/22 15:16:00 EST, Height/Length Dosing, 112.6, kg, 12/30/22 15:16:00 EST, Weight Dosing Follow-up No qualifying data available Problem List/Past Medical History Ongoing (more content not included)... [facility] Comment on above: Result Comment: Elec tronically Signed By: Geraldo HENDRICKS, Shivani Power.br\Date and Time Signed: 12/30/22 15:47 EST Family Medicine Office/Clini c Noteon 12-07-2022 Family Medicine Office/Clinic Note HPI Staff Shawn is a 67 year old presenting to establish care Establish Care: History:DM, HTN, AVELINA, hyperlipidemia Last provider: Shanta Any recent labs: fall 2021 due Health Maintenance UTD: Colonoscopy: 2021 PSA: due covid: UTD flu: given today Acute: Current issues/complaints: has annual medicare next month Please send all meds 90 day supplies to [facility] please History of Present Illness Jocelyn Saeed is a 67-year-old male who presents today for an evaluation. The patient presents with a medical history of diabetes mellitus but is uncertain of his most recent Hemoglobin A1c levels. His daughter is advocating for the initiation of Mounjaro therapy. Today's examination reveals hypertension, although the patient asserts that his blood pressure is typically within a normal range. He attributes the current elevation to anxiety related to meeting a new healthcare provider and recent hectic activities. The patient reports consistent use of his Continuous Positive Airway Pressure device. Despite a history of gout, the patient denies any current issues. He has been on a long-term regimen of allopurinol for 20 years, with previous gout manifestations in the first metatarsophalangeal joint. The patient's medical history also includes nephrolithiasis. 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 Review of Systems PHQ Score Initial Depression Screen Score: 0 Physical Exam Vitals & Measurements T: 36.5 ?C(Oral) HR: 66(Peripheral) RR: 16 BP: 160/96 SpO2: 95% HT: 67 in HT: 170.2 cm WT: 114.0 kg WT: 250.8 lb BMI: 39.35 General: alert, no acute distress, patient is hard of hearing ENMT: oral mucosa moist, no pharyngeal erythema or exudate Cardiovascular: regular rate and rhythm, normal peripheral perfusion Respiratory: Lungs CTA, respirations non labored Extremities: no deformity, no trauma Neurological: oriented x 4, LOC appropriate for age, CN II-XII intact, motor strength equal & normal bilaterally, speech normal Abdomen: soft, nontender, nondistended Assessment/Plan 1. HTN (hypertension) (I10: Essential (primary) hypertension) Patient's blood pressure is not at goal. We will recheck today. Patient will be following back in 1 month for a recheck. At that time, we will adjust medication if his blood pressure is still elevated. Patient states that he is concerned about white coat syndrome, that is why we will not adjust his medication at this time. 2. Hyperlipidemia (E78.5: Hyperlipidemia, unspecified) Patient is on atorvastatin. We will recheck just to make sure that his level is appropriate if it is not appropriate. 3. AVELINA (obstructive sleep apnea) (G47.33: Obstructive sleep apnea (adult) (pediatric)) Patient is using his CPAP and uses it religiously. Continue using his CPAP machine. 4. Type 2 diabetes mellitus with hyperlipidemia (E11.69: Type 2 diabetes mellitus with other specified complication) Unsure what the patient's A1c is. We will continue the patient on the metformin and the Invokana and we will adjust as needed. 5. Class 3 obesity (E66.01: Morbid (severe) obesity due to excess calories) Discussed diet and exercise. 6. Subclinical hypothyroidism (E03.8: Other specified hypothyroidism) We will do a TSH at this time. 7. Encounter for immunization (Z23: Encounter for immunization) Patient is given the flu shot. 8. BMI 39.0-39.9,adult (Z68.39: Body mass index [BMI] 39.0-39.9, adult) BMI education given. 9. Class 1 obesity due to excess calories in adult (E66.09: Other obesity due to excess calories) As above. 10. Gout (M10.9: Gout, unspecified) We will do a uric acid level and if the patient is low, we will remove allopurinol. 11. Hearing loss (H91.90: Unspecified hearing loss, unspecified ear) Patient is hard of hearing and does use hearing aids. Portions of this record may have been created with voice recognition artificial intelligence software, specifically [employer], [employer] and or [employer]. Substitutions may have occurred due to the inherent limitations of voice recognition and artificial intelligence software. Documentation services were performed after patient or guardian consented to allow [employer] to record this visit. [employer] media specialist and provider reviewed before signing. TON: Dhevie Rigor Follow-up No qualifying data available We will see the patient back in 1 month for adjusting the medication. Problem List/Past Medical History Ongoing Asthma Grya's palsy Class 3 obesity Gout Hearing loss History of nephrolithiasis HTN (hypertension) Hyperlipidemia AVELINA (obstructive sleep apnea) Prostate disorder Sciatica Subclinical hypothyroidism Type 2 diabetes mellitus with hyperlipidemia Historical No qualifying data Procedure/Surgical History Cataract extraction, Cystoscopy, Lithotripsy, Tonsillectomy. Medications allopurinol 300 mg Tab, 300 mg= 1 tab(s), (more content not included)... Normal [facility] Comment on above: Result Comment: Elec tronically Signed By: Shivani Limon MD\.br\Date and Time Signed: 12/07/22 07:46 EDT\.br\Electronically Co-Signed By: Shirlene Branch\.br\Date and Time Co-Signed: 11/30/22 17:25 EDT CHEMISTRYOrdered By: Ro davidson on 12-01-2022 Albumin DL <= 20 mg/L (U) [Mass/Vol] 101.6 microgram/mL High 0.0 - 19.0 mcg/mL [facility] Albumin Elph (U) [Mass fraction] 19.4 mg/dL Invalid Interpretation Code [facility] Remiso Comment on above: Interpretive Data: T he reference range and other method performance specifications have not been established for this test; results should be integrated into the clinical context for interpretation. Creatinine (U) [Mass/Vol] 135.6 mg/dL Invalid Interpretation Code [facility] Remisol Comment on above: Interpretive Data: T he reference range and other method performance specifications have not been established for this test; results should be integrated into the clinical context for interpretation. U Prot/Creat Ratio 143.10 mg/gm Cr Normal 0.00 - 200.00 mg/gm Cr [facility] Remisol Consent for Flu Vaccineon Consent for Flu Vaccine [id number] .[id number] Normal [facility] U Microalbon 12-01-2022 Albumin DL <= 20 mg/L (U) [Mass/Vol] 101.6 microgram/mL High 0.0-19.0 [facility] Comment on above: Performed By: #### 1 [id number], [id number] ####[facility] [address] [place] [address] U Protein/Creat Ratioon 11-21 Albumin Elph (U) [Mass fraction] 19.4 mg/dL Invalid Interpretation Code [facility] Comment on above: Result Comment: The reference range and other method performance specifications have not been established for this test; results should be integrated into the clinical context for interpretation. Performed By: #### 1 [id number], [id number] ####[facility] [address] [place] [address] Creatinine (U) [Mass/Vol] 135.6 mg/dL Invalid Interpretation Code [facility] Comment on above: Result Comment: The reference range and other method performance specifications have not been established for this test; results should be integrated into the clinical context for interpretation. Performed By: #### 1 [id number], [id number] ####[facility] [address] [place] [address] U Prot/Creat Ratio 143.10 mg/gm Cr Normal .00-200.00 [facility] Comment on above: Performed By: #### 1 [id number], [id number] ####[facility] [address] [place] [address] Ambulatory Visit Summaryon 1 Ambulatory Visit Summary JOCELYN SAEED :1955 Visit Date:11/30/2022 Ambulatory Visit Instructions Your Diagnosis HTN (hypertension) Hyperlipidemia AVELINA (obstructive sleep apnea) Type 2 diabetes mellitus with hyperlipidemia Class 3 obesity Subclinical hypothyroidism Encounter for immunization BMI 39.0-39.9,adult Class 1 obesity due to excess calories in adult Gout Hearing loss Your Care Team Attending Physician - Geraldo HENDRICKS, Shivani George. Primary Care Physician - SHANTA HENDRICKS, PENELOPE George This Is Your Medications List allopurinol (allopurinol 300 mg Tab) atorvastatin (atorvastatin 10 mg Tab) canagliflozin (Invokana 100 mg oral tablet) hydrochlorothiazide-l osartan (hydrochlorothiazide- losartan 12.5 mg-100 mg oral tablet) levothyroxine (levothyroxine 75 mcg (0.075 mg) Tab) metformin (metformin 500 mg Tab) metoprolol (metoprolol 100 mg ER Tab) mupirocin topical (mupirocin Top 2% Oint) Procedures Performed Cataract extraction, Cystoscopy, Lithotripsy, Tonsillectomy. Discharge Vitals Temperature (Oral) 36.5 ?C Heart Rate (Peripheral) 66 Respiratory Rate 16 Blood Pressure 160/96 Height 170.2 cm Height 67 in Weight 114.0 kg Weight 250.8 lb BMI 39.35 What to do next Scheduled Follow-Up Appointments Tuesday 8:00 AM EDT With: Where: [place] [id number] [place] [id number]- \.br\ Medications\.br\ What How Much When Instructions\.br \ Unchanged allopurinol (allopurinol 300 mg Tab) 1 Tablets By Mouth Every day\.br\ Unchanged atorvastatin (atorvastatin 10 mg Tab) 1 Tablets By Mouth Every day\.br\ Unchanged canagliflozin (Invokana 100 mg oral tablet) 1 Tablets By Mouth Every day\.br\ Unchanged hydrochlorothiaz sonny-losartan (hydrochlorothia zide-losartan 12.5 mg-100 mg oral tablet) 1 Tablets By Mouth Every day\.br\ Unchanged levothyroxine (levothyroxine 75 mcg (0.075 mg) Tab) See instructions TAKE 1 TABLET BY MOUTH EVERY DAY \.br\ Unchanged metformin (metformin 500 mg Tab) 1 Tablets By Mouth 3 times a day\.br\ Unchanged metoprolol (metoprolol 100 mg ER Tab) 1 Tablets By Mouth Every day\.br\ Unchanged mupirocin topical (mupirocin Top 2% Oint) 1 Application Topical 3 times a day\.br\ Medications and Immunizations Administered\.br \ Given\.br\ influenza virus vaccine, inactivated HIGH DOSE preservative-ej e quadrivalent intramuscular susp, 0.7 mL, IntraMuscular. For: BMI 39.0-39.9,adult\ .br\ influenza virus vaccine, inactivated, IntraMuscular\.b r\ Allergies\.br\ lisinopril (Unknown)\.br\ Problems\.br\ Ongoing - Any problem that you are currently receiving treatment for.\.br\ Asthma\.br\ Gray's palsy\.br\ Class 3 obesity\.br\ Gout\.br\ Hearing loss\.br\ History of nephrolithiasis\ .br\ HTN (hypertension)\. br\ Hyperlipidemia\. br\ AVELINA (obstructive sleep apnea)\.br\ Prostate disorder\.br\ Sciatica\.br\ Subclinical hypothyroidism\. br\ Type 2 diabetes mellitus with hyperlipidemia\. br\ \.br\ [facility] Auto Diffon 11-30-2022 Basophils/100 WBC (Bld) 0.4 % Normal 0.0-2.0 [facility] Comment on above: Order Comment: Order Added by Discern Expert. Performed By: #### 2 401027, 59783915, 588565087, 0783517, 87784124, 4106700, 8834561 ####[address] [address] Basophils/Leukocytes Auto (Bld) [Pure # fraction] 0.0 E9/L Normal 0.0-0.2 [facility] Comment on above: Order Comment: Order Added by Discern Expert. Performed By: #### 2 485700, 52650374, 063569011, 5914786, 68512580, 1669620, 3934181 ####[address] [address] Eosinophils/100 WBC (Bld) 5.0 % Normal 0.0-8.0 [facility] Comment on above: Order Comment: Order Added by Discern Expert. Performed By: #### 2 876873, 50111143, 209434057, 4751485, 42832384, 0316333, 8210958 ####[place] [place] [address] Eosinophils/Leukocyt es Auto (Bld) [Pure # fraction] 0.4 E9/L Normal 0.0-0.5 [facility] Comment on above: Order Comment: Order Added by Discern Expert. Performed By: #### 2 295416, 37135115, 081218838, 7900616, 23580610, 3965498, 2234739 ####[address] [address] Lymphocytes/100 WBC (Bld) 22.4 % Normal 14.0-50.0 [facility] Comment on above: Order Comment: Order Added by Discern Expert. Performed By: #### 2 903327, 69522910, 645857849, 7723846, 45889465, 6629195, 7101166 ####[address] [address] Lymphocytes/Leukocyt es Auto (Bld) [Pure # fraction] 1.9 E9/L Normal 1.0-4.0 [facility] Comment on above: Order Comment: Order Added by Discern Expert. Performed By: #### 2 244427, 41292833, 399672880, 4722863, 28188899, 3889289, 1722956 ####[address] [address] Monocytes/100 WBC (Bld) 9.0 % Normal 4.0-14.0 [facility] Comment on above: Order Comment: Order Added by Discern Expert. Performed By: #### 2 757455, 03270657, 299692736, 7494447, 62508744, 3271539, 4097659 ####[address] [address] Monocytes/Leukocytes Auto (Bld) [Pure # fraction] 0.8 E9/L Normal 0.2-1.0 [facility] Comment on above: Order Comment: Order Added by Discern Expert. Performed By: #### 2 930967, 84152969, 640556568, 5192558, 21898348, 3318857, 8569647 ####[address] [address] Neutrophils/100 WBC (Bld) 63.2 % Normal 36.0-75.0 [facility] Comment on above: Order Comment: Order Added by Discern Expert. Performed By: #### 2 812993, 93623021, 671388394, 9093570, 20688376, 8747744, 9309306 ####[place] [address] [place] [address] Neutrophils/Leukocyt es Auto (Bld) [Pure # fraction] 5.3 E9/L Normal 2.0-7.5 [facility] Comment on above: Order Comment: Order Added by Discern Expert. Performed By: #### 2 817409, 47752325, 574117922, 6172781, 82753988, 3161481, 0754169 ####[address] [address] CBC w/ Auto Diffon Erythrocyte distribution width (RBC) [Ratio] 13.2 % Normal 10.9-14.2 [facility] Comment on above: Performed By: #### 2 637005, 26084991, 444734277, 6268837, 82660751, 9945025, 3170747 ####[address] [address] Hematocrit (Bld) [Volume fraction] 38.9 % Normal 37.7-49.0 [facility] Comment on above: Performed By: #### 2 040948, 14766311, 532686693, 2428172, 36309591, 3516488, 6369677 ####[address] [address] Hemoglobin (Bld) [Mass/Vol] 13.2 g/dL Low 13.5-17.5 [facility] Comment on above: Performed By: #### 2 299009, 04661541, 493591269, 6385899, 20058418, 0706889, 0811688 ####[address] [address] MCH (RBC) [Entitic mass] 31.4 pg Normal 27.0-34.0 [facility] Comment on above: Performed By: #### 2 797398, 50193760, 202130891, 4132040, 49700684, 1331595, 4562284 ####[address] [place] [address] MCHC (RBC) [Mass/Vol] 34.0 g/dL Normal 31.4-36.0 [facility] Comment on above: Performed By: #### 2 381900, 58900986, 843138473, 0297259, 12110230, 2290461, 5987510 ####[place] [address] MCV (RBC) [Entitic vol] 92.5 fL Normal 80.0-100.0 [facility] Comment on above: Performed By: #### 2 335956, 07151259, 777065958, 6078842, 85310590, 5959477, 0034001 ####[place] [address] Platelet mean volume (Bld) [Entitic vol] 7.8 fL Normal 6.4-10.8 [facility] Comment on above: Performed By: #### 2 129772, 38951982, 985790582, 3454708, 40198551, 2212576, 7529966 ####[place] [address] Platelets (Bld) [#/Vol] 239.0 E9/L Normal 150.0-500.0 [facility] Comment on above: Performed By: #### 2 165906, 67688709, 184165247, 4619254, 24130894, 1771088, 8673847 ####[place] [address] RBC (Bld) [#/Vol] 4.2 E12/L Low 4.3-5.9 [facility] Comment on above: Performed By: #### 2 654513, 48954752, 591984622, 0357044, 56060991, 4575079, 0466756 ####[address] [address] WBC corrected for nucl RBC Auto (Bld) [#/Vol] 8.4 E9/L Normal 4.0-11.0 [facility] Comment on above: Performed By: #### 2 478883, 45197511, 962723913, 8885473, 05353373, 4531700, 1993153 ####[facility] [address] [place] [address] CMPon 11-30-2022 Albumin [Mass/Vol] 4.3 g/dL Normal 3.3-5.0 [facility] Comment on above: Performed By: #### 2 865761, 18287493, 511735910, 2141227, 43147138, 3020563, 3627302 ####[place] [place] [address] Albumin/Globulin (S) [Mass conc ratio] 1.2 Normal 1.1-2.2 [facility] Comment on above: Performed By: #### 2 027338, 57566623, 471374304, 5309905, 05798023, 8444023, 1437876 ####[address] [address] ALP [Catalytic activity/Vol] 74 Int._Unit/L Normal 21-98 [facility] Comment on above: Performed By: #### 2 308083, 53290359, 187087247, 5144069, 44497188, 8114330, 5929482 ####[address] [address] ALT No additional P-5'-P [Catalytic activity/Vol] 21 Int._Unit/L Normal 6-46 [facility] Comment on above: Performed By: #### 2 935539, 60897960, 182362977, 8470177, 87633355, 9420681, 9711452 ####[address] [place] [address] Anion gap [Moles/Vol] 11 mmol/L Normal 6-16 [facility] Comment on above: Performed By: #### 2 964896, 59976312, 432339666, 8575527, 25084247, 3606033, 6326214 ####[facility] [address] [place] [address] AST [Catalytic activity/Vol] 21 Int._Unit/L Normal 5-43 [facility] Comment on above: Performed By: #### 2 230029, 06107807, 958291786, 2185632, 38748325, 5275911, 6931076 ####[facility] [address] [place] [address] Bilirubin [Mass/Vol] 0.4 mg/dL Normal 0.0-1.1 [facility] Comment on above: Performed By: #### 2 068265, 29681018, 878140135, 4976227, 85036291, 6446145, 0876625 ####[facility] [address] [place] [address] Calcium [Mass/Vol] 9.6 mg/dL Normal 8.9-11.1 [facility] Comment on above: Performed By: #### 2 504548, 97858503, 881157877, 3962524, 41222807, 5626903, 2539526 ####[facility] [address] [place] [address] Chloride [Moles/Vol] 109 mmol/L Normal 101-111 [facility] Comment on above: Performed By: #### 2 307120, 67373934, 716672082, 1897570, 58869192, 1068744, 9721484 ####[facility] [address] [place] [address] CO2 [Moles/Vol] 27 mmol/L Normal 21-31 [facility] Comment on above: Performed By: #### 2 695880, 05193265, 008171023, 3857701, 35656932, 5737526, 6071792 ####[facility] [address] [place] [address] Creatinine [Mass/Vol] 1.4 mg/dL High 0.5-1.3 [facility] Comment on above: Performed By: #### 2 037998, 33501884, 754601946, 8184075, 42289448, 5255593, 1808824 ####[facility] [address] [place] [address] Globulin (S) [Mass/Vol] 3.5 g/dL Normal 1.4-4.0 [facility] Comment on above: Performed By: #### 2 614934, 80203188, 509486063, 9534490, 06185772, 6934610, 0177430 ####[facility] [address] [place] [address] Glucose [Mass/Vol] 113 mg/dL Normal 55-199 [facility] Comment on above: Result Comment: If t his glucose result represents a fasting glucose, interpretation should refer to the following reference range: 55-99 mg/dL Performed By: #### 2 084994, 36754559, 412900589, 5469818, 11162157, 2208914, 0334293 ####[facility] [address] [place] [address] Potassium [Moles/Vol] 4.9 mmol/L Normal 3.5-5.3 [facility] Comment on above: Performed By: #### 2 634556, 55291895, 897662799, 1794936, 52945951, 5146946, 8572331 ####[facility] [address] [place] [address] Protein [Mass/Vol] 7.8 g/dL Normal 6.0-7.8 [facility] Comment on above: Performed By: #### 2 812692, 31707603, 495436849, 8286984, 15064480, 3110182, 0375297 ####[facility] [address] [place] [address] Sodium [Moles/Vol] 142 mmol/L Normal 135-145 [facility] Comment on above: Performed By: #### 2 304195, 35033678, 764506968, 6762409, 56938765, 2099583, 2771239 ####[place] [place] [address] Urea nitrogen [Mass/Vol] 25 mg/dL High 5-21 [facility] Comment on above: Performed By: #### 2 273848, 77375751, 443144641, 3653733, 93403660, 2473975, 3733096 ####[facility] [address] [place] [address] Urea nitrogen/Creatinine [Mass ratio] 18 No Units Normal 10-20 [facility] Comment on above: Performed By: #### 2 849868, 45530646, 312738487, 2041441, 08527556, 7165492, 0386805 ####[facility] [address] [place] [address] TtsF7gbl 11-30-2022 HbA1c (Bld) [Mass fraction] 6.8 % High <=5.9 [facility] Comment on above: Performed By: #### 2 056357, 95903096, 822952239, 6439123, 52948640, 4487651, 1054401 ####[facility] [address] [place] [address] Lipid Panelon 11-30-2022 Cholesterol [Mass/Vol] 139 mg/dL Normal 120-200 [facility] Comment on above: Performed By: #### 2 596747, 84437292, 088080576, 4757303, 55575206, 0054062, 2587559 ####[facility] [address] [place] [address] Cholesterol in HDL [Mass/Vol] 41 mg/dL Invalid Interpretation Code [facility] Comment on above: Result Comment: HDL > or equal to 60 mg/dL: Low cardiovascular risk HDL < 40 mg/dL : High cardiovascular risk Performed By: #### 2 880989, 26353787, 251591951, 3740250, 95984363, 3677511, 3943020 ####[facility] [address] [place] [address] Cholesterol in LDL [Mass/Vol] 77 mg/dL Normal <=129 [facility] Comment on above: Performed By: #### 2 961422, 22420695, 073720754, 9064091, 67140588, 7490759, 7903560 ####[facility] [address] [place] [address] Cholesterol in VLDL [Mass/Vol] 22 mg/dL Normal 7-40 [facility] Comment on above: Performed By: #### 2 425169, 85121739, 795555319, 9779918, 24798411, 3509644, 1959468 ####[facility] [address] [place] [address] Triglyceride [Mass/Vol] 110 mg/dL Normal <=149 [facility] Comment on above: Performed By: #### 2 469541, 53470680, 042456292, 4548013, 25196609, 5878598, 1531085 ####[facility] [address] [place] [address] TSH With T4fr Reflexon 11-30 TSH Qn 2.35 m[IU]/L Normal 0.34-5.60 [facility] Comment on above: Performed By: #### 2 496033, 06963748, 918795522, 2661260, 16373871, 7394187, 6321037 ####[facility] [address] [place] [address] Uric Acidon 11-30-2022 Urate [Mass/Vol] 4.6 mg/dL Normal 2.2-7.4 [facility] Comment on above: Performed By: #### 2 385[address] ####[facility] [address] [place] [address] eGFRon 11-30-2022 GFR/1.73 sq M.predicted among non-blacks MDRD (S/P/Bld) [Vol rate/Area] 54 mL/min/1.73 m2 Low >=59 [facility] Comment on above: Order Comment: Order added by Discern Expert. Result Comment: Banquet Chef trisha kidney disease could be indicated at eGFR's of less than 60 mL/min/1.73m2. Kidney failure is indicated at less than 15 mL/min/1.73m2. Performed By: #### 2 [id number], [id number], [id number], [id number], [id number], [id number] ####[facility] [id number] [place] [address] CBC AUTO DIFFon 06-07-2022 BASO # 0.0 103/ul Normal 0.0-0.1 [facility] Comment on above: Performed By: #### C BC #### [facility] [address] [address] [address] Emiliano Sheehan Basophils/100 WBC (Bld) 0.6 % Normal 0.2-2.0 [facility] Comment on above: Performed By: #### C BC #### [facility] [address] [place] [address] Dr. Emiliano Sheehan EO # 0.5 103/ul Normal 0.0-0.7 [facility] Comment on above: Performed By: #### C BC #### [facility] [address] [address] [address] Emiliano Sheehan Eosinophils/100 WBC (Bld) 7.6 % Critically high 0.9-7.0 [facility] Comment on above: Performed By: #### C BC #### [facility] [address] [place] [address] Dr. Emiliano Sheehan Erythrocyte distribution width (RBC) [Ratio] 12.3 % Normal 11.0-15.0 [facility] Comment on above: Performed By: #### C BC #### [facility] [address] [place] [address] Dr. Emiliano Sheehan Hematocrit (Bld) [Volume fraction] 40.1 % Critically low 42.0-54.0 [facility] Comment on above: Performed By: #### C BC #### [facility] [address] [place] [address] Dr. Emiliano Sheehan Hemoglobin (Bld) [Mass/Vol] 13.4 g/dL Critically low 14.0-18.0 [facility] Comment on above: Performed By: #### C BC #### [facility] [address] [place] [address] Dr. Emiliano Sheehan IG # 0.03 10e3/ul Normal 0.00-0.03 [facility] Comment on above: Performed By: #### C BC #### [facility] [address] [place] [address] Dr. Emiliano Sheehan IG % 0.5 % Normal 0.0-0.5 [facility] Comment on above: Performed By: #### C BC #### [facility] [address] [place] [address] Dr. Emiliano Sheehan LYMPH # 1.9 103/ul Normal 1.2-3.8 [facility] Comment on above: Performed By: #### C BC #### [facility] [address] [place] [address] Dr. Emiliano Sheehan Lymphocytes/100 WBC (Bld) 29.5 % Normal 20.5-60.0 [facility] Comment on above: Performed By: #### C BC #### [facility] [address] [place] [address] Dr. Emiliano Sheehan MANUAL DIFF REQ NO Normal [facility] Comment on above: Performed By: #### C BC #### [facility] [address] [place] [address] Dr. Emiliano Sheehan MCH (RBC) [Entitic mass] 30.4 pg Normal 25.9-34.0 [facility] Comment on above: Performed By: #### C BC #### [facility] [address] [place] [address] Dr. Emiliano Sheehan MCHC (RBC) [Mass/Vol] 33.4 g/dL Normal 29.9-35.[address] [facility] Comment on above: Performed By: #### C BC #### [facility] [address] [place] [address] Dr. Emiliano Sheehan MCV (RBC) [Entitic vol] 90.9 fL Normal 80.0-94.0 [facility] Comment on above: Performed By: #### C BC #### [facility] [address] [address] [address] Emiliano Sheehan MONO # 0.6 103/ul Normal 0.3-0.8 [facility] Comment on above: Performed By: #### C BC #### [facility] [address] [address] [address] Emiliano Sheehan Monocytes/100 WBC (Bld) 9.6 % Normal 1.7-12.[address] [facility] Comment on above: Performed By: #### C BC #### [facility] [address] [address] [address] Emiliano Sheehan NEUT # 3.4 103/ul Normal 1.4-6.[address] [facility] Comment on above: Performed By: #### C BC #### [facility] [address] [place] [address] Dr. Emiliano Sheehan Neutrophils/100 WBC (Bld) 52.2 % Normal 43.0-75.0 [facility] Comment on above: Performed By: #### C BC #### [facility] [address] [place] [address] Dr. Emiliano Sheehan Platelet mean volume (Bld) [Entitic vol] 9.0 fL Critically low 9.5-13.5 [facility] Comment on above: Performed By: #### C BC #### [facility] [address] [place] [address] Dr. Emiliano Sheehan PLT 205 103/ul Normal 150-[address] [facility] Comment on above: Performed By: #### C BC #### [facility] [address] [place] [address] Dr. Emiliano Sheehan RBC 4.41 106/ul Critically low 4.70-6.10 [facility] Comment on above: Performed By: #### C BC #### [facility] [address] [place] [address] Dr. Emiliano Sheehan WBC 6.5 103/ul Normal 4.0-11.[address] [facility] Comment on above: Performed By: #### C BC #### [facility] [address] [place] [address] Dr. Emiliano Sheehan FREE T3on 06-07-2022 FREE T3 2.37 pg/mlL Normal 2.18-3.98 [facility] Comment on above: Performed By: #### P SAD, FT4 #### [facility] [address] [place] [address] Dr. Emiliano Sheehan FREE T4on 06-07-2022 Free T4 [Mass/Vol] 1.37 ng/dL Normal 0.76-1.46 [facility] Comment on above: Performed By: #### P SAD, FT4 #### [facility] [address] [place] [address] Dr. Emiliano Sheehan GLYCOHEMOGLOBIN A1Con 2022 ADA RECOMMENDATION SEE BELOW Normal [facility] Comment on above: Result Comment: ADA RECOMMENDED LIMIT 4.0 - 6.0 ADA THERAPEUTIC TARGET < 7.0 ACTION SUGGESTED > 7.0 Performed By: #### P SAD, FT4 #### [facility] [address] [place] [address] Dr. Emiliano Sheehan Glucose [Mass/Vol] 206 mg/dL Normal [facility] Comment on above: Performed By: #### P SAD, FT4 #### [facility] [address] [place] [address] Dr. Emiliano Sheehan HbA1c (Bld) [Mass fraction] 8.8 % Critically high 4.5-6.2 [facility] Comment on above: Performed By: #### P SAD, FT4 #### [facility] [address] [place] [address] Dr. Emiliano Sheehan LIPID PROFILEon 06-07-2022 CHOL-HDL RATIO NORM SEE BELOW Normal [facility] Comment on above: Result Comment: 3.3 - 4.4 LOW RISK 4.4 - 7.1 AVERAGE RISK 7.1 - 11.0 MODERATE RISK >11.0 HIGH RISK Performed By: #### P SAD, FT4 #### [facility] [address] [place] [address] Dr. Emiliano Sheehan Cholesterol [Mass/Vol] 169 mg/dL Normal <=200 [facility] Comment on above: Performed By: #### P SAD, FT4 #### [facility] [address] [address] [address] Emiliano Sheehan Cholesterol in HDL [Mass/Vol] 37 mg/dL Critically low 40-60 [facility] Comment on above: Performed By: #### P SAD, FT4 #### [facility] [address] [address] [address] Emiliano Sheehan Cholesterol in LDL [Mass/Vol] 69.4 mg/dL Normal [facility] Comment on above: Performed By: #### P SAD, FT4 #### [facility] [address] [address] [address] Emiliano Sheehan Cholesterol.total/Ch olesterol in HDL [Mass ratio] 4.6 {ratio} Normal [facility] Comment on above: Performed By: #### P SAD, FT4 #### [facility] [address] [place] [address] Dr. Emiliano Sheehan HDL NORMAL > or = 60 mg/dl - LO W CARDIOVASCULAR RISK <40 mg/dl - HIGH CARDIOVASCULAR RISK Normal [facility] Comment on above: Performed By: #### P SAD, FT4 #### [facility] [address] [address] [address] Emiliano Sheehan LDL CALC NORMAL SEE BELOW Normal [facility] Comment on above: Result Comment: <100 mg/dl OPTIMAL 100 - 129 mg/dl NEAR OR ABOVE OPTIMAL 130 - 159 mg/dl BORDERLINE HIGH 160 - 189 mg/dl HIGH >190 mg/dl VERY HIGH Performed By: #### P SAD, FT4 #### [facility] [address] [place] [address] Dr. Emiliano Sheehan Triglyceride [Mass/Vol] 313 mg/dL Critically high <=[address] [facility] Comment on above: Performed By: #### P SAD, FT4 #### [facility] [address] [place] [address] Dr. Emiliano Sheehan VLDL CALC 62.6 mg/dL Normal [facility] Comment on above: Performed By: #### P SAD, FT4 #### [facility] [address] [place] [address] Dr. Emiliano Sheehan PROF 14(COMP METB)on 023 Albumin [Mass/Vol] 4.0 g/dL Normal 3.4-5.0 [facility] Comment on above: Performed By: #### L IPID, CMP, FT3, URIC #### [facility] [address] [address] [address] Emiliano Sheehan Albumin/Globulin [Mass ratio] 1.1 {ratio} Normal [facility] Comment on above: Performed By: #### L IPID, CMP, FT3, URIC #### [facility] [address] [address] [address] Emiliano Sheehan ALP [Catalytic activity/Vol] 86 U/L Normal 46-116 [facility] Comment on above: Performed By: #### L IPID, CMP, FT3, URIC #### [facility] [address] [place] [address] Dr. Emiliano Sheehan ALT [Catalytic activity/Vol] 35 U/L Normal 16-63 [facility] Comment on above: Performed By: #### L IPID, CMP, FT3, URIC #### [facility] [address] [address] [address] Emiliano Sheehan Anion gap [Moles/Vol] 12.9 mmol/L Normal [facility] Comment on above: Performed By: #### L IPID, CMP, FT3, URIC #### [facility] [address] [address] [address] Emiliano Sheehan AST [Catalytic activity/Vol] 17 U/L Normal 15-37 [facility] Comment on above: Performed By: #### L IPID, CMP, FT3, URIC #### [facility] [address] [address] [address] Emiliano Sheehan Bilirubin [Mass/Vol] 0.4 mg/dL Normal 0.2-1.0 [facility] Comment on above: Performed By: #### L IPID, CMP, FT3, URIC #### [facility] [address] [address] [address] Emiliano Sheehan Calcium [Mass/Vol] 9.1 mg/dL Normal 8.5-10.1 [facility] Comment on above: Performed By: #### L IPID, CMP, FT3, URIC #### [facility] [address] [address] [address] Emiliano Sheehan Chloride [Moles/Vol] 103 mmol/L Normal 98-107 [facility] Comment on above: Performed By: #### L IPID, CMP, FT3, URIC #### [facility] [address] [place] [address] Dr. Emiliano Sheehan CO2 [Moles/Vol] 25.6 mmol/L Normal 21.0-32.0 [facility] Comment on above: Performed By: #### L IPID, CMP, FT3, URIC #### [facility] [address] [place] [address] Dr. Emiliano Sheehan Creatinine [Mass/Vol] 1.28 mg/dL Normal 0.70-1.30 [facility] Comment on above: Performed By: #### L IPID, CMP, FT3, URIC #### [facility] [address] [place] [address] Dr. Emiliano Sheehan EGFR-AF [place] >60 Normal >=60 [facility] Comment on above: Performed By: #### L IPID, CMP, FT3, URIC #### [facility] [address] [place] [address] Dr. Emiliano Sheehan EGFR-NON AF [place] 56 mL/min/1.73m2 Critically low >=60 [facility] Comment on above: Performed By: #### L IPID, CMP, FT3, URIC #### [facility] [address] [place] [address] Dr. Emiliano Sheehan Globulin (S) [Mass/Vol] 3.7 g/dL Normal [facility] Comment on above: Performed By: #### L IPID, CMP, FT3, URIC #### [facility] [address] [place] [address] Dr. Emiliano Sheehan Glucose [Mass/Vol] 210 mg/dL Critically high 74-106 [facility] Comment on above: Performed By: #### L IPID, CMP, FT3, URIC #### [facility] [address] [place] [address] Dr. Emiliano Sheehan Potassium [Moles/Vol] 4.5 mmol/L Normal 3.5-5.[address] [facility] Comment on above: Performed By: #### L IPID, CMP, FT3, URIC #### [facility] [address] [place] [address] Dr. Emiliano Sheehan Protein [Mass/Vol] 7.7 g/dL Normal 6.4-8.2 [facility] Comment on above: Performed By: #### L IPID, CMP, FT3, URIC #### [facility] [address] [place] [address] Dr. Emiliano Sheehan Sodium [Moles/Vol] 137 mmol/L Normal 136-145 [facility] Comment on above: Performed By: #### L IPID, CMP, FT3, URIC #### [facility] [address] [place] [address] Dr. Emiliano Sheehan Urea nitrogen [Mass/Vol] 19.0 mg/dL Critically high 7.0-18.[address] [facility] Comment on above: Performed By: #### L IPID, CMP, FT3, URIC #### [facility] [address] [place] [address] Dr. Emiliano Sheehan Urea nitrogen/Creatinine [Mass ratio] 14.8 mg/mg Normal [facility] Comment on above: Performed By: #### L IPID, CMP, FT3, URIC #### [facility] [address] [place] [address] Dr. Emiliano Sheehan URIC ACID SERUMon 06-07-2022 Urate [Mass/Vol] 3.5 mg/dL Normal 3.5-7.2 [facility] Comment on above: Performed By: #### P SAD, FT4 #### [facility] [address] [place] [address] Dr. Emiliano Sheehan FREE T3on 02-11-2022 FREE T3 2.33 pg/mlL Normal 2.18-3.[address] [facility] Comment on above: Performed By: #### P SAD, FT4 #### [facility] [address] [place] [address] Dr. Emiliano Sheehan FREE T4on 02-11-2022 Free T4 [Mass/Vol] 1.20 ng/dL Normal 0.76-1.46 [facility] Comment on above: Performed By: #### F T4 #### [facility] [address] [place] [address] Dr. Emiliano Sheehan TSHon 02-11-2022 TSH 2.124 uIU/mL Normal 0.358-3.740 [facility] Comment on above: Performed By: #### P SAD, FT4 #### [facility] [address] [place] [address] Dr. Emiliano Sheehan POINT OF CARE GLUCOSEon Glucose [Mass/Vol] 205 mg/dL Critically high 74-106 [facility] Comment on above: Performed By: #### P SAD, FT4 #### [facility] [address] [place] [address] Dr. Emiliano Sheehan Covid-19 PCR (CVDTBH)on SARS-CoV-2 (COVID-19) RNA LUIS+probe Ql (Unsp spec) Not detected Normal NOT DETECTED [facility] Comment on above: Result Comment: This test is not yet approved or cleared by the [place] FDA. When there are no FDA-approved or cleared tests available, and other criteria are met, FDA can make tests available under an emergency access mechanism called an Emergency Use Authorization (EUA). The EUA for this test is supported by the Front Desk Administrator of Health and Human Service's (HHS's) declaration that circumstances exist to justify the emergency use of in vitro diagnostics for the detection and/or diagnosis of the virus that causes COVID-19. This EUA will remain in effect (meaning this test can be used) for the duration of the COVID-19 declaration justifying emergency of IVDs, unless it is terminated or revoked by FDA (after which the test may no longer be used). When diagnostic testing is negative, the possibility of a false negative should be considered in the context of a patient's recent exposures and the presence of clinical signs and symptoms consistent with SARS-CoV-2. Performed By: #### C VDTB #### [facility] [address] [place] [address] Dr. Emiliano Sheehan GLYCOHEMOGLOBIN A1Con 2021 ADA RECOMMENDATION SEE BELOW Normal [facility] Comment on above: Result Comment: ADA RECOMMENDED LIMIT 4.0 - 6.0 ADA THERAPEUTIC TARGET < 7.0 ACTION SUGGESTED > 7.0 Performed By: #### P SARIAH, FT4 #### [facility] [address] [place] [address] Dr. Emiliano Sheehan Glucose [Mass/Vol] 177 mg/dL Normal [facility] Comment on above: Performed By: #### P SARIAH, FT4 #### [facility] [address] [place] [address] Dr. Emiliano Sheehan HbA1c (Bld) [Mass fraction] 7.8 % Critically high 4.5-6.2 [facility] Comment on above: Performed By: #### P SARIAH, FT4 #### [facility] [address] [place] [address] Dr. Emiliano Sheehan CBC AUTO DIFFon 12-01-2021 BASO # 0.0 103/ul Normal 0.0-0.1 [facility] Comment on above: Performed By: #### P SARIAH, FT4 #### [facility] [address] [place] [address] Dr. Emiliano Sheehan Basophils/100 WBC (Bld) 0.5 % Normal 0.2-2.0 [facility] Comment on above: Performed By: #### P SARIAH, FT4 #### [facility] [address] [place] [address] Dr. Emiliano Sheehan EO # 0.5 103/ul Normal 0.0-0.[address] [facility] Comment on above: Performed By: #### P SARIAH, FT4 #### [facility] [address] [place] [address] Dr. Emiliano Sheehan Eosinophils/100 WBC (Bld) 5.7 % Normal 0.9-7.0 [facility] Comment on above: Performed By: #### P SARIAH, FT4 #### [facility] [address] [place] [address] Dr. Emiliano Sheehan Erythrocyte distribution width (RBC) [Ratio] 12.8 % Normal 11.0-15.0 [facility] Comment on above: Performed By: #### P SAD, FT4 #### [facility] [address] [place] [address] Dr. Emiliano Sheehan Hematocrit (Bld) [Volume fraction] 39.5 % Critically low 42.0-54.0 [facility] Comment on above: Performed By: #### P SAD, FT4 #### [facility] [address] [place] [address] Dr. Emiliano Sheehan Hemoglobin (Bld) [Mass/Vol] 12.9 g/dL Critically low 14.0-18.0 [facility] Comment on above: Performed By: #### P SAD, FT4 #### [facility] [address] [place] [address] Dr. Emiliano Sheehan IG # 0.03 10e3/ul Normal 0.00-0.03 [facility] Comment on above: Performed By: #### P SAD, FT4 #### [facility] [address] [place] [address] Dr. Emiliano Sheehan IG % 0.3 % Normal 0.0-0.5 [facility] Comment on above: Performed By: #### P SAD, FT4 #### [facility] [address] [place] [address] Dr. Emiliano Sheehan LYMPH # 2.3 103/ul Normal 1.2-3.[address] [facility] Comment on above: Performed By: #### P SAD, FT4 #### [facility] [address] [place] [address] Dr. Emiliano Sheehan Lymphocytes/100 WBC (Bld) 26.7 % Normal 20.5-60.0 [facility] Comment on above: Performed By: #### P SAD, FT4 #### [facility] [address] [place] [address] Dr. Emiliano Sheehan MANUAL DIFF REQ NO Normal [facility] Comment on above: Performed By: #### P SAD, FT4 #### [facility] [address] [place] [address] Dr. Emiliano Sheehan MCH (RBC) [Entitic mass] 31.2 pg Normal 25.9-34.0 [facility] Comment on above: Performed By: #### P SAD, FT4 #### [facility] [address] [place] [address] Dr. Emiliano Sheehan MCHC (RBC) [Mass/Vol] 32.7 g/dL Normal 29.9-35.[address] [facility] Comment on above: Performed By: #### P SAD, FT4 #### [facility] [address] [place] [address] Dr. Emiliano Sheehan MCV (RBC) [Entitic vol] 95.6 fL Critically high 80.0-94.0 [facility] Comment on above: Performed By: #### P SAD, FT4 #### [facility] [address] [place] [address] Dr. Emiliano Sheehan MONO # 0.8 103/ul Normal 0.3-0.8 [facility] Comment on above: Performed By: #### P SAD, FT4 #### [facility] [address] [place] [address] Dr. Emiliano Sheehan Monocytes/100 WBC (Bld) 9.4 % Normal 1.7-12.0 [facility] Comment on above: Performed By: #### P SAD, FT4 #### [facility] [address] [place] [address] Dr. Emiliano Sheehan NEUT # 4.9 103/ul Normal 1.4-6.[address] [facility] Comment on above: Performed By: #### P SAD, FT4 #### [facility] [address] [place] [address] Dr. Emiliano Sheehan Neutrophils/100 WBC (Bld) 57.4 % Normal 43.0-75.0 [facility] Comment on above: Performed By: #### P SAD, FT4 #### [facility] [address] [place] [address] Dr. Emiliano Sheehan Platelet mean volume (Bld) [Entitic vol] 8.8 fL Critically low 9.5-13.5 [facility] Comment on above: Performed By: #### P SAD, FT4 #### [facility] [address] [place] [address] Dr. Emiliano Sheehan PLT 210 103/ul Normal 150-450 [facility] Comment on above: Performed By: #### P SAD, FT4 #### [facility] [address] [place] [address] Dr. Emiliano Sheehan RBC 4.13 106/ul Critically low 4.70-6.10 [facility] Comment on above: Performed By: #### P SAD, FT4 #### [facility] [address] [place] [address] Dr. Emiliano Sheehan WBC 8.6 103/ul Normal 4.0-11.0 [facility] Comment on above: Performed By: #### P SAD, FT4 #### [facility] [address] [place] [address] Dr. Emiliano Sheehan FREE T3on 12-01-2021 FREE T3 2.20 pg/mlL Normal 2.18-3.98 [facility] Comment on above: Performed By: #### T SH, FT3, LIPID, CMP #### [facility] [address] [place] [address] Dr. Emiliano Sheehan FREE T4on 12-01-2021 Free T4 [Mass/Vol] 1.11 ng/dL Normal 0.76-1.46 [facility] Comment on above: Performed By: #### P SAD, FT4 #### [facility] [address] [place] [address] Dr. Emiliano Sheehan LIPID PROFILEon 12-01-2021 CHOL-HDL RATIO NORM SEE BELOW Normal [facility] Comment on above: Result Comment: 3.3 - 4.4 LOW RISK 4.4 - 7.1 AVERAGE RISK 7.1 - 11.0 MODERATE RISK >11.0 HIGH RISK Performed By: #### T SH, FT3, LIPID, CMP #### [facility] [address] [place] [address] Dr. Emiliano Sheehan Cholesterol [Mass/Vol] 146 mg/dL Normal <=200 [facility] Comment on above: Performed By: #### T SH, FT3, LIPID, CMP #### [facility] [address] [address] [address] Emiliano Sheehan Cholesterol in HDL [Mass/Vol] 41 mg/dL Normal 40-60 [facility] Comment on above: Performed By: #### T SH, FT3, LIPID, CMP #### [facility] [address] [place] [address] Dr. Emiliano Sheehan Cholesterol in LDL [Mass/Vol] 59.8 mg/dL Normal [facility] Comment on above: Performed By: #### T SH, FT3, LIPID, CMP #### [facility] [address] [place] [address] Dr. Emiliano Sheehan Cholesterol.total/Ch olesterol in HDL [Mass ratio] 3.6 {ratio} Normal [facility] Comment on above: Performed By: #### T SH, FT3, LIPID, CMP #### [facility] [address] [place] [address] Dr. Emiliano Sheehan HDL NORMAL > or = 60 mg/dl - LO W CARDIOVASCULAR RISK <40 mg/dl - HIGH CARDIOVASCULAR RISK Normal [facility] Comment on above: Performed By: #### T SH, FT3, LIPID, CMP #### [facility] [address] [place] [address] Dr. Emiliano Sheehan LDL CALC NORMAL SEE BELOW Normal [facility] Comment on above: Result Comment: <100 mg/dl OPTIMAL 100 - 129 mg/dl NEAR OR ABOVE OPTIMAL 130 - 159 mg/dl BORDERLINE HIGH 160 - 189 mg/dl HIGH >190 mg/dl VERY HIGH Performed By: #### T SH, FT3, LIPID, CMP #### [facility] [address] [place] [address] Dr. Emiliano Sheehan Triglyceride [Mass/Vol] 226 mg/dL Critically high <=[address] [facility] Comment on above: Performed By: #### T SH, FT3, LIPID, CMP #### [facility] [address] [place] [address] Dr. Emiliano Sheehan VLDL CALC 45.2 mg/dL Normal [facility] Comment on above: Performed By: #### T SH, FT3, LIPID, CMP #### [facility] [address] [address] [address] Emiliano Sheehan PROF 14(COMP METB)on 022 Albumin [Mass/Vol] 4.2 g/dL Normal 3.4-5.0 [facility] Comment on above: Performed By: #### T SH, FT3, LIPID, CMP #### [facility] [address] [address] [address] Emiliano Sheehan Albumin/Globulin [Mass ratio] 1.2 {ratio} Normal [facility] Comment on above: Performed By: #### T SH, FT3, LIPID, CMP #### [facility] [address] [place] [address] Dr. Emiliano Sheehan ALP [Catalytic activity/Vol] 82 U/L Normal 46-116 [facility] Comment on above: Performed By: #### T SH, FT3, LIPID, CMP #### [facility] [address] [place] [address] Dr. Emiliano Sheehan ALT [Catalytic activity/Vol] 26 U/L Normal 16-63 [facility] Comment on above: Performed By: #### T SH, FT3, LIPID, CMP #### [facility] [address] [place] [address] Dr. Emiliano Sheehan Anion gap [Moles/Vol] 13.1 mmol/L Normal [facility] Comment on above: Performed By: #### T SH, FT3, LIPID, CMP #### [facility] [address] [place] [address] Dr. Emiliano Sheehan AST [Catalytic activity/Vol] 12 U/L Critically low 15-37 [facility] Comment on above: Performed By: #### T SH, FT3, LIPID, CMP #### [facility] [address] [place] [address] Dr. Emiliano Sheehan Bilirubin [Mass/Vol] 0.8 mg/dL Normal 0.2-1.0 [facility] Comment on above: Performed By: #### T SH, FT3, LIPID, CMP #### [facility] [address] [place] [address] Dr. Emiliano Sheehan Calcium [Mass/Vol] 9.2 mg/dL Normal 8.5-10.1 [facility] Comment on above: Performed By: #### T SH, FT3, LIPID, CMP #### [facility] [address] [place] [address] Dr. Emiliano Sheehan Chloride [Moles/Vol] 103 mmol/L Normal 98-[address] [facility] Comment on above: Performed By: #### T SH, FT3, LIPID, CMP #### [facility] [address] [place] [address] Dr. Emiliano Sheehan CO2 [Moles/Vol] 27.2 mmol/L Normal 21.0-32.0 [facility] Comment on above: Performed By: #### T SH, FT3, LIPID, CMP #### [facility] [address] [place] [address] Dr. Emiliano Sheehan Creatinine [Mass/Vol] 1.22 mg/dL Normal 0.70-1.30 [facility] Comment on above: Performed By: #### T SH, FT3, LIPID, CMP #### [facility] [address] [place] [address] Dr. Emiliano Sheehan EGFR-AF [place] >60 Normal >=60 [facility] Comment on above: Performed By: #### T SH, FT3, LIPID, CMP #### [facility] [address] [place] [address] Dr. Emiliano Sheehan EGFR-NON AF [place] 59 mL/min/1.73m2 Critically low >=[address] [facility] Comment on above: Performed By: #### T SH, FT3, LIPID, CMP #### [facility] [address] [place] [address] Dr. Emiliano Sheehan Globulin (S) [Mass/Vol] 3.5 g/dL Normal [facility] Comment on above: Performed By: #### T SH, FT3, LIPID, CMP #### [facility] [address] [address] [address] Emiliano Sheehan Glucose [Mass/Vol] 159 mg/dL Critically high 74-106 [facility] Comment on above: Performed By: #### T SH, FT3, LIPID, CMP #### [facility] [address] [place] [address] Dr. Emiliano Sheehan Potassium [Moles/Vol] 4.3 mmol/L Normal 3.5-5.1 [facility] Comment on above: Performed By: #### T SH, FT3, LIPID, CMP #### [facility] [address] [place] [address] Dr. Emiliano Sheehan Protein [Mass/Vol] 7.7 g/dL Normal 6.4-8.2 [facility] Comment on above: Performed By: #### T SH, FT3, LIPID, CMP #### [facility] [address] [place] [address] Dr. Emiliano Sheehan Sodium [Moles/Vol] 139 mmol/L Normal 136-145 [facility] Comment on above: Performed By: #### T SH, FT3, LIPID, CMP #### [facility] [address] [place] [address] Dr. Emiliano Sheehan Urea nitrogen [Mass/Vol] 19.0 mg/dL Critically high 7.0-18.0 [facility] Comment on above: Performed By: #### T SH, FT3, LIPID, CMP #### [facility] [address] [place] [address] Dr. Emiliano Sheehan Urea nitrogen/Creatinine [Mass ratio] 15.6 mg/mg Normal [facility] Comment on above: Performed By: #### T SH, FT3, LIPID, CMP #### [facility] [address] [place] [address] Dr. Emiliano Sheehan TSHon 12-01-2021 TSH 4.588 uIU/mL Critically high 0.358-3.740 [facility] Comment on above: Performed By: #### T SH, FT3, LIPID, CMP #### [facility] [address] [place] [address] Dr. Emiliano Sheehan Vital Signs Date Time Vital Sign Value Performing Clinician Atilio beckman 01-03-2023 08:28-0500 Blood Pressure Location [facility] 01-03-2023 08:28-0500 Diastolic blood pressure 80 mm[Hg] [facility] 01-03-2023 08:28-0500 Heart rate 70 /min [facility] 01-03-2023 08:28-0500 Respiratory rate 16 /min [facility] 01-03-2023 08:28-0500 SaO2% (BldA) [Mass fraction] 99 % [facility] 01-03-2023 08:28-0500 Systolic blood pressure 132 mm[Hg] [facility] 12-23-2021 15:56-0400 Blood Pressure Location [facility] [place] 12-23-2021 15:56-0400 Diastolic blood pressure 96 mm[Hg] [facility] [place] 12-23-2021 15:56-0400 Heart rate 76 /min Stephanie NILL [facility] [place] 12-23-2021 15:56-0400 Respiratory rate 16 /min [facility] [place] 12-23-2021 15:56-0400 Systolic blood pressure 132 mm[Hg] [facility] [place] Encounters Encounter Date Encounter Type Care Provider Facility Start: 01-09-2024 ambulatory [facility]iv[facility] Limon [facility] Start: 09-29-2023 ambulatory Shivani Limon [facility] Start: 07-22-2023 End: 07-22-2023 ambulatory LIZ SHERMAN Not Available Start: 07-20-2023 End: 07-20-2023 ambulatory NANCY IZQUIERDO Not Available Start: 06-30-2023 End: 06-30-2023 ambulatory Shivani Limon Facility:[facility] Start: 06-23-2023 End: 06-23-2023 Lab Drop off Shivani Limon [facility] Start: 06-23-2023 End: 06-23-2023 ambulatory Shivani Limon Facility:[facility] Start: 01-03-2023 End: 01-03-2023 ambulatory Robert Sandhu Facility:[facility] Start: 01-03-2023 End: 01-03-2023 Patient encounter procedure Edison Sandhu [facility] Start: 01-03-2023 End: 01-03-2023 Well adult monitoring check done Robert Sandhu [facility] Start: 12-30-2022 End: 12-30-2022 ambulatory Shivani Limon Facility:[facility] Start: 12-24-2022 ambulatory Shivani Limon Facility :[facility] Start: 12-01-2022 End: 12-01-2022 ambulatory Shivani Limon Facility:[facility] Start: 12-01-2022 End: 12-01-2022 Lab Drop off Shivani Limon [facility] Start: 11-30-2022 End: 11-30-2022 ambulatory Shivani Limon Facility:[facility] Start: 06-07-2022 End: 06-08-[address] PENELOPE WOMACK . Facility:[facility] Start: 02-11-2022 End: 02-12-[address] PENELOPE WOMACK . Facility:[facility] Start: 02-03-2022 End: 02-04-[address] PENELOPE WOMACK . Facility:[facility] Start: 01-30-2022 Encounter for preprocedural laboratory examination DR STEPHANIE MELO . [facility] Start: 01-27-2022 End: 01-27-[address] PENELOPE WOMACK . Facility:[facility] Start: 01-23-2022 End: 01-24-[address] STEPHANIE MELO . Facility:[facility] Start: 01-23-2022 End: 01-24-2022 Encounter for preprocedural laboratory examination DR STEPHANIE MELO . Facility:[facility] Start: 12-23-2021 End: 12-23-2021 Patient encounter procedure Stephanie MELO [facility] Start: 12-16-2021 End: 12-17-[address] PENELOPE WOMACK . Facility:[facility] Start: 12-01-2021 End: 12-02-[address] PENELOPE WOMACK . Facility:[facility] Procedures Date Procedure Procedure Detail Performing Clinician Start: 06-07-[address] PENELOPE HAGEN . Comment on above: Performed By: #### P SAD, FT4 #### [facility] [address] [address] [address] Emiliano Sheehan Start: 12-01-[address] PENELOPE HAGEN . Comment on above: Performed By: #### P SAD, FT4 #### [facility] [address] [address] [address] Emiliano Sheehan Cystoscopy Stephanie MELO Extraction of cataract Darion ester MELO Lithotripsy Stephanie MELO Tonsillectomy Stephanie MELO Immunizations Immunization Date Immunization Notes Care Provider [facility] 11-30-2022 influenza, high dose seasonal, preservative-free Shivani Limon [facility] 02-01-2022 SARS-CoV-2 (COVID-19 ) [id number] Shivani Limon [facility] 01-07-2022 influenza virus vaccine, unspecified formulation Shivani Limon [facility] 01-09-2021 influenza virus vaccine, unspecified formulation Shivani Limon [facility] 12-16-2020 SARS-CoV-2 (COVID-19 ) mRNA BNT-162b2 maninder Limon [facility] Comment on above: Result Comment: 2022: [id number] 04-25-2020 SARS-CoV-2 (COVID-19 ) mRNA BNT-162b2 maninder Limon [facility] Comment on above: Result Comment: 2022: [id number] 04-04-2020 SARS-CoV-2 (COVID-19 ) mRNA BNT-162m5 maninder Limon [facility] Comment on above: Result Comment: 2022: [id number] 12-21-2019 influenza virus vaccine, unspecified formulation Shivani Limon [facility] 12-21-2019 pneumococcal conjuga te vaccine, 13 valent Shivani Limon [facility] Payers Date Payer Category Payer Medicare [id number] 1961 Unknown [id number] 1955 Unknown [id number] 2.16.84 0.1.552789.3.579.2.593 1955 Unknown [id number] 2.16.84 0.1.758749.3.579.2.593 1955 Unknown [id number] 2.16.84 0.1.844230.3.579.2.593 1953 Unknown [id number] 2.16.84 0.1.576396.3.579.2.593 1953 Unknown [id number] 2.16.84 0.1.025672.3.579.2.593 1953 Unknown [id number] 2.16.84 0.1.998349.3.579.2.593 1953 Unknown [id number] 2.16.84 0.1.960980.3.579.2.593 1953 Unknown [id number] 2.16.8 40.1.819721.3.579.2.727 1953 Unknown [id number] 2.16.8 40.1.102611.3.579.2.727 1953 Unknown [id number] 2.16.8 40.1.337360.3.579.2.727 1953 Unknown [id number] 2.16.8 40.1.483326.3.579.2.727 1953 Unknown [id number] 2.16.8 40.1.546936.3.579.2.727 1953 Unknown [id number] 2.16.8 40.1.080483.3.579.2.727 1953 Unknown [id number] 2.16.8 40.1.664395.3.579.2.727 1953 Unknown [id number] 2.16.8 40.1.023566.3.579.2.727 1953 Unknown [id number] 2.16.8 40.1.421593.3.579.2.727 1953 Unknown [id number] 2.16.8 40.1.433933.3.579.2.727 1953 Unknown [id number] 2.16.8 40.1.943291.3.579.2.727 1953 Unknown [id number] 2.16.8 40.1.388144.3.579.2.727 1953 Unknown [id number] 2.16.84 0.1.742491.3.579.2.1259 1953 Unknown [id number] 2.16.84 0.1.294100.3.579.2.1259 1953 Unknown [id number] 2.16.84 0.1.530099.3.579.2.1259 Social History Date Type Detail Facility Start: 12-23-2021 End: 06-23-2023 Tobacco smoking status Never smoked tobacco (finding) [facility] [place] Tobacco smoking status Never Gener [facility] [place] Sex Assigned At Male [facility] Functional Status Date Assessment Result Facility 01-03-2023 Functional Status N/A [facility] [place] 12-23-2021 Functional Status N/A General [facility] Clinical Note 01-27-2022 Note Date & Type Note Facility 01-27-2022 Note OPERATIVE NOTE OPERATION DATE: 01/27/2022 PREOPERATIVE DIAGNOSIS: Colorectal screening. POSTOPERATIVE DIAGNOSIS: Normal colonoscopy to cecum. PROCEDURE: Colonoscopy to cecum. SURGEON: Stephanie Melo M.D. ANESTHESIA: Monitored anesthesia care. ESTIMATED BLOOD LOSS: Zero. INDICATIONS AND CONSENT: Patient is a 66-year-old male presents for colorectal screening. Indications, risks, benefits, alternatives of proceeding with colonoscopy were explained extensively to the patient, including the risks of bleeding, colon perforation or anesthetic complications. All of his questions were answered. Informed consent was obtained. PROCEDURE: Patient brought to the operating room, placed in the left lateral decubitus position. Monitored anesthesia care was provided. Rectal exam was performed which showed no masses or blood. The scope was inserted into the anal canal. Under direct visualization was advanced. It was advanced to the cecum where cecal markings were clearly identified. Upon withdrawal of the scope, mucosal surfaces were carefully examined. There were no mass lesions or polyps. No inflammatory changes or ulcerations. There was no significant diverticulosis. The scope was retroflexed in the anal canal. There were some prominent rectal veins, no significant hemorrhoidal disease. Scope was then withdrawn. Patient tolerated procedure well, was sent to recovery room in good condition. CC: Penelope Womack M.D. [facility] Evaluation + Plan note Note Date & Type Note Facility Evaluation + Plan note No data available for this section [facility] [place] Evaluation + Plan note Note Date & Type Note Facility Evaluation + Plan note Future Appointments Appointment Date:12/24/2022 08:00:00 AM Scheduled Provider: Location:[facility] Appointment Type: Medicare Wellness Subsequent Appointment Date:12/30/2022 03:20:00 PM Scheduled Provider:Shivani Limon MD Location:[facility] Appointment Type: Open [facility] Evaluation + Plan note Radiology Note Date & Type Note Facility Evaluation + Plan note Future Appointments Appointment Date:06/23/2023 08:00:00 AM Scheduled Provider:Shivani Limon MD Location:[facility] Appointment Type: Open Appointment Date:01/09/2024 08:00:00 AM Scheduled Provider: Location:[facility] Appointment Type: Medicare Wellness Subsequent Future Scheduled TestsNM Myocardial Spect Rest/Stress 1 Day 12/30/22 [facility] [place] Evaluation + Plan note Radiology Note Date & Type Note Facility Evaluation + Plan note Future Appointments Appointment Date:01/09/2024 08:00:00 AM Scheduled Provider: Location:[facility] Appointment Type: Medicare Wellness Subsequent Appointment Date:01/09/2024 08:45:00 AM Scheduled Provider:Shivani Limon MD Location:[facility] Appointment Type: Open Future Scheduled TestsNM Myocardial Spect Rest/Stress 1 Day 12/30/22 [facility] Discharge instructions Note Date & Type Note Facility Hospital Discharge instructions No data available for this section [facility] [place] Progress note Note Date & Type Note Facility Progress note No data available for this section [facility] [place] Summary Purpose Family History No Family History Records Found No data available for this section No data available for this section No data available for this section No Family History Records FoundNo Family History Records FoundNo Family History Records Found Advance Directives No Advanced Directives Records FoundNo Advanced Directives Records FoundNo Advanced Directives Records FoundNo Advanced Directives Records Found Additional Source Comments Patient Care team informatio n (unrecognized section and content) Personnel Name: PENELOPE WOMACK MD Address: Address: [address] [place] [address] Personnel Name: PENELOPE WOMACK MD Address: Address: [address] [place] [address] Personnel Name: Shivani Limon MD Address: Address: [address] [place] [address]- Personnel Name: Shivani Limon MD Address: Address: [facility] [place] [address]- (unrecognized sect ion and content) No Status Records FoundNo Status Records FoundNo Status Records FoundNo Status Records Found INFORMATION SOURCE (unrecogn ized section and content) DATE CREATED AUTHOR 06/10/2022 [facility] DATE CREATED AUTHOR AUTHOR'S ORGANIZ ATION 07/26/2023 [facility] DATE CREATED AUTHOR AUTHOR'S ORGANIZ ATION 07/26/2023 [facility] DATE CREATED AUTHOR AUTHOR'S ORGANIZ ATION 08/23/2023 [facility] FOR RECORDS PERTAINING TO PATIENTS WHO ARE OR HAVE BEEN ENROLLED IN A CHEMICAL DEPENDENCY/SUBSTANCEABUSE PROGRAM, SOME INFORMATION MAY BE OMITTED. This clinical summary was aggregated from multiple sources. Caution should be exercised in using it in the provision of clinical care. This summary normalizes information from multiple sources, and as a consequence, information in this document may materially change the coding, format and clinical context of patient data. In addition, data may be omitted in some cases. CLINICAL DECISIONS SHOULD BE BASED ON THE PRIMARY CLINICAL RECORDS. [employer] provides no warranty or guarantee of the accuracy or completeness of information in this document.
--- NOTE | 2023-09-06 09:48 | US_ITS ---
[address] [address] Patient Name: JOCELYN HUSSEIN MRN: [id number] date: 1955 Sex: M Assigned Patient Location: LAB Current Patient Location: LAB Accession/Order Number: [id number] Exam Date: 09/06/2023 09:50 Report Date: 09/06/2023 10:40 At the request of: SHIVANI LIMON Procedure: US scrotum EXAMINATION: US scrotum HISTORY: Scrotal Pain COMPARISON: No relevant comparison available. TECHNIQUE: High-resolution sonographic imaging of the scrotum and contents was performed. FINDINGS: The right testicle is normal in size, contour and homogeneous echotexture measuring 4.3 x 3.5 x 2.9 cm. No focal mass. Normal color and Doppler flow The right epididymis is normal in appearance No right hydrocele. Small right varicocele. The left testicle is normal in size, contour and homogeneous echotexture measuring 4.1 x 4.0 x 2.8 cm. No focal mass. Normal color and Doppler flow The left epididymis is normal in appearance No left hydrocele or varicocele US/US scrotum IMPRESSION: No evidence of testicular torsion Small right varicocele Electronically authenticated by: JOCELYN GOFF Date: 09/06/2023 10:40
--- NOTE | 2023-09-06 09:49 | XR_ITS ---
The [address] [address] Patient Name: JOCELYN HUSSEIN MRN: [id number] date: 1955 Sex: M Assigned Patient Location: LAB Current Patient Location: LAB Accession/Order Number: [id number] Exam Date: 09/06/2023 10:30 Report Date: 09/06/2023 11:08 At the request of: SHIVANI LIMON Procedure: XR hip REBECA EXAMINATION: XR hip REBECA HISTORY: Bilateral Hip Pain COMPARISON: No relevant comparison available. FINDINGS: RIGHT FINDINGS: BONES: No acute fracture or dislocation. Heterotopic ossification along the greater and lesser trochanters. SOFT TISSUES: Negative. No visible soft tissue swelling. OTHER: Negative. LEFT FINDINGS: BONES: No acute fracture or dislocation. Heterotopic corticated bone fragments along the lateral superior acetabulum. SOFT TISSUES: Negative. No visible soft tissue swelling. OTHER: Negative. XR/XR hip REBECA IMPRESSION: RIGHT CONCLUSION: Degenerative changes, no acute fracture LEFT CONCLUSION: Degenerative changes, no acute fracture Electronically authenticated by: JOCELYN GOFF Date: 09/06/2023 11:08
[2023-09-06 11:30] LABS: Bilirubin Urine NEGATIVE (NEGATIVE); Blood Urine NEGATIVE (NEGATIVE); Clarity Urine CLEAR (CLEAR); Color Urine LT. YELLOW (YELLOW); Glucose Urine UA NEGATIVE (NEGATIVE); Ketones Urine NEGATIVE (NEGATIVE); Leukocyte Esterase Urine NEGATIVE (NEGATIVE); Nitrite Urine NEGATIVE (NEGATIVE); Protein Urine TRACE mg/dL (NEG/TRACE); Urine Microscopic Indicated NO; Urobilinogen Urine 0.2 EU/dL (0.2-1.0); pH Urine 5.5 (5.0-9.0)
== END 2023-09-06 09:21 | disposition home or self-care (01) ==
LOC: LAB 09:22
PROVIDERS: PCP Family Medicine; Visit Provider Family Medicine
DX: N50.82 Scrotal pain (principal); M25.551 Pain in right hip; M25.552 Pain in left hip; I86.1 Scrotal varices
CPT/HCPCS: 73522; 76870; 81003; 87086; 87150; 87186

== ENCOUNTER 2023-09-12 16:27 | Emergency (ER) | payer MEDICARE, OTHER, SELFPAY ==
[2023-09-12 16:50] VITALS: BP 174/79; PULSE 74; TEMP 36.7; O2SAT 98; BMI 35.2
[2023-09-12] MEDS: KETOROLAC TROMETHAMINE 30 MG/ML VIAL IM (18:22)
[2023-09-12] MEDS: DEXAMETHASONE SOD PHOS 10 MG/ML VIAL 16 MG IM (18:23)
--- NOTE | 2023-09-12 20:03 | ED_ITS ---
HPI HPI - General Adult General Chief complaint: Back Pain/Injury Stated complaint: Back Pain Time Seen by Provider: 09/12/23 17:13 Source: patient Mode of arrival: walk-in Limitations: no limitations History of Present Illness HPI narrative: Patient is a 5-year-old male who is presenting to the ER with chief complaint of left lower back pain, left hip pain, and radiating pain going down his left lateral leg into his left fifth pinky toe. Patient is been having intermittent pain to his lower back, right hip, then left hip. Patient has had various tests recently including x-rays, and a ultrasound of his testicles. Patient was noted to have a varicocele. Patient has been sitting in a chair for the past 2 to 3 weeks secondary to cannot lay flat secondary to pain. Patient is having some mild pain and irritation to the top of his buttocks. Patient says that him and his are sent here to have a CAT scan of his hip per Dr. Chow. Patient has had no fall, no trauma. Patient has been on steroids, also using anti- inflammatories. Patient has been on pain medication as well. Patient has not seen a chiropractor. Patient today has no fever or chills, no abdominal pain nausea vomiting. No difficulty urinating with frequency urgency or burning. No sentinel seizure cauda equina. Patient has classic presentation for lumbar radiculopathy and sciatica. No rash. at bedside. All systems are negative except as noted/marked. All systems reviewed and otherwise negative. Nurses note and vital signs reviewed and patient is not hypoxic. General: The patient appears well and in no apparent distress. Patient is resting comfortably on cart. Patient is not toxic, lethargic, or listless Skin: Warm, dry, no pallor noted. There is no rash noted. No petechiae, purp ura. Patient has stage I ulceration to bilateral inner buttock crease to the top third of his buttocks. Patient also has a small area of stage II ulceration to the top of his gluteal cleft. Patient may have fungal infection to the inner buttock cheeks as well compared to possible stage I ulceration from chronic sitting in the chair. No significant signs of cellulitis, no pilonidal abscess. No perirectal abscess or perianal abscess. Most likely stage I and stage II ulcerations to the top of his gluteal cleft in between his upper gluteal creases, possible secondary candidiasis infection. No petechiae purpura. No mucous membrane involvement. Head: Normocephalic, atraumatic Eye: Normal conjunctiva, no drainage, EOMI. PERRL Ears, Nose, Mouth, and Throat: oral mucosa is moist. Nares patent. Mouth without vesicles. Cardiovascular: Regular Rate and Rhythm, no murmur, gallop, rub Respiratory: Patient is in no distress, no accessory muscle use, lungs are clear to auscultation, no wheezing, rales or rhonchi Back: Moderate left paralumbar tenderness to palpation, mild left piriformis tenderness to palpation, no right paralumbar soft tissue or right piriformis tenderness palpation, otherwise the rest of his back is non-tender, no CVA tenderness bilaterally to percussion. No CT LS midline pain. Positive straight leg raising test on the left, negative on the right. GI: no tenderness to palpation, no masses appreciated. No rebound, guarding, or rigidity noted. No distention Musculoskeletal: Patient has full range of motion of all of the extremities, no motor, sensory, or focal neurological deficits. Patient has some mild tenderness with internal/external rotation and flexion extension of left hip to his left hip and left buttock area. No rash. No motor or sensory deficits to his lower extremities equal bilateral. No difficulty with toe touch bilateral. Neurological: A&O x4, normal speech Psychiatric: Cooperative Related Data Previous Rx's ?Medication ?Instructions ?Recorded ketoconazole 2 % topical cream 1 applic topical BID #15 grams 09/12/23 Allergies Allergy/AdvReac Type Severity Reaction Status Date / Time No Known Drug Allergies Allergy Verified 12/27/22 06:46 Opioid HPI Opioid Management Most Recent Opioid Data: Last Pain Scale 8 09/12/23 18:22 Last APR Pain Assessment 09/12/23 18:22 PFS PFS Social History Smoking status: Never smoker Exam Constitutional Vital Signs, click to edit/add: Last Vital Signs Temp 98.0 F 09/12/23 16:50 Pulse 74 09/12/23 16:50 Resp 20 09/12/23 16:50 BP 174/79 H 09/12/23 16:50 Pulse Ox 98 09/12/23 16:50 O2 Del Method Room Air 09/12/23 16:50 Course Vital Signs Vital signs: Vital Signs Temperature 98.0 F 09/12/23 16:50 Pulse Rate 74 09/12/23 16:50 Respiratory Rate 20 09/12/23 16:50 Blood Pressure 174/79 H 09/12/23 16:50 Pulse Oximetry 98 09/12/23 16:50 Oxygen Delivery Method Room Air 09/12/23 16:50 Temperature 98.0 F 09/12/23 16:50 Pulse Rate 74 09/12/23 16:50 Respiratory Rate 20 09/12/23 16:50 Blood Pressure 174/79 H 09/12/23 16:50 Pulse Oximetry 98 09/12/23 16:50 Oxygen Delivery Method Room Air 09/12/23 16:50 Medical Decision Making MDM Narrative Medical decision making narrative: Before I saw the patient, I was able to speak to Dr. Chow and discussed his previous care. After examining the patient and speaking to the patient and his , I was able to speak thankfully to Dr. Chow again. Dr. Chow recommended given patient Decadron and Toradol. I have spoken to patient and his at length, over 30 minutes during HPI and physical exam and also prior to disposition. Patient's daughter is a nurse, Carmela. We did attempt to speak to her on the phone as well. Patient has no acute indication for CAT scan of the pelvis or hip at this time. Patient needs to have an MRI most likely for lumbar radiculopathy, sci atica, and ongoing pain for the past 2 to 3 weeks. Patient has most likely stage I and stage II ulcerations in between his buttock cheeks and a small area of stage II ulceration at the top of his buttock folds. No pilonidal abscess. Patient may have secondary candidiasis. Patient was educated on treating stage was not paged to ulcerations to the top of his buttocks in the middle between gluteal folds. Patient was also given ketoconazole cream in case patient's upper buttocks were possibly fungal. Education on using ice, has been using heat for the past week or 2. Education on stretching and using child care center administrator if needed. Patient did not want to see chiropractics. Patient was referred to Dr. Cobb for spine and orthopedic surgery. Dr. Chow is aware of patient visit, patient may need outpatient MRI or an open MRI for his lumbar radiculopathy and sciatica today. No acute indication for CT of the pelvis or hip, patient and agree. Dr. Chow is aware we are not ordering CT, no signs of infection today during his presentation. Patient will follow-up with PCP and orthopedic spine surgeon. Education on treating treatment and treating symptoms at home were discussed. Patient was given Decadron and Toradol injection at the recommendation of Dr. Chow today. Patient and thankful for time. Discharge Plan Discharge Stand Alone Forms: Portal Instructions Chief Complaint: Back Pain/Injury Clinical Impression: Decubitus ulcer, Acute left lumbar radiculopathy, Acute left-sided low back pain with sciatica Patient Disposition: Home, Self-Care Time of Disposition Decision: 18:17 Condition: Fair Prescriptions / Home Meds: New ketoconazole 2 % cream 1 applic topical BID Qty: 15 0RF Rx Instructions: x 2-3 weeks Print Language: Uzbek Instructions: Wound Healing and Your Diet (ED), Acute Low Back Pain (ED), Pressure Injury (ED), Lumbar Radiculopathy (ED), Skin Yeast Infection (ED), Lower Back Exercises (ED) Additional Instructions: Do not use heat Use ice 20 minutes on, 20 minutes off. Use barrier cream 3-4 times a day, either Desitin, Aquaphor, A&E ointment to help with skin breakdown. Use antifungal cream twice a day to help with possible coinciding fungal infection to your upper buttock crease. Follow-up with PCP and also with orthopedic surgery and spinal surgery for lumbar radiculopathy, sciatica, and you may need a outpatient MRI if indicated. Referrals: SHIVANI CHOW [Primary Care Provider] - 1 week Discharge Date/Time: 09/12/23 19:00
== END 2023-09-12 19:00 | disposition home or self-care (01) ==
PROVIDERS: Emergency Provider Emergency Medicine; PCP Family Medicine
DX: M54.16 Radiculopathy, lumbar region (principal); M54.42 Lumbago with sciatica, left side; L89.302 Pressure ulcer of unspecified buttock, stage 2
CPT/HCPCS: 96372; 99284; J1100; J1885

== ENCOUNTER 2023-09-16 08:33 | Outpatient (RCR) | payer MEDICARE, OTHER, SELFPAY | END 2023-10-12 12:19 | disposition home or self-care (01) | LOC: PT 08:33 | PROVIDERS: PCP Family Medicine; Visit Provider Family Medicine | DX: M25.551 Pain in right hip (principal); M25.552 Pain in left hip | CPT/HCPCS: 97012; 97110; 97113; 97140; 97162 ==

== ENCOUNTER 2023-12-26 09:40 | Emergency (ER) | payer OTHER, MEDICARE, SELFPAY ==
[2023-12-26] VITALS (58 sets, daily range): BP systolic 156–188; BP diastolic 90–146; PULSE 79–104; TEMP 36.7; O2SAT 93–99; BMI 37.6
--- NOTE | 2023-12-26 09:54 | CT_ITS ---
The [address] [address] Patient Name: JOCELYN HUSSEIN MRN: [id number] date: 1955 Sex: M Assigned Patient Location: ER Current Patient Location: ER Accession/Order Number: [id number] Exam Date: 12/26/2023 11:38 Report Date: 12/26/2023 13:27 At the request of: VINCENZO BUSH Procedure: CT abdomen pelvis w con EXAM: CT abdomen pelvis w con HISTORY: trauma COMPARISON: None. TECHNIQUE: Following intravenous administration of 100 cc of Omnipaque 300, axial soft tissue windows of the abdomen were performed with coronal and sagittal reformats. CT dose reduction technique was used including Automated Exposure Control. Findings: The liver, gallbladder, spleen, and adrenal glands are unremarkable. There is partial fatty replacement of the pancreas. Mild nonspecific bilateral perinephric fat stranding. Right renal low-attenuation lesions, too small to characterize. No renal collecting system or ureteral dilatation bilaterally. Evaluation of the bowel is limited given the absence of oral contrast. There are few colonic diverticula. The bowel and appendix are nondilated. The aorta is normal caliber. Mild atherosclerotic disease. No enlarged abdominal lymph nodes or free abdominal fluid. There is stranding of the anterior subcutaneous fat likely relating to soft tissue contusion. Pelvis: Unremarkable bladder. The prostate is nonenlarged. No enlarged pelvic lymph nodes or free pelvic fluid. Grade 1 anterolisthesis of L4 on L5. Multilevel degenerative spondylosis. Small superior endplate compression deformity L1. Impression 1. Small and mild superior endplate compression deformity at L1. 2. No other acute posttraumatic abnormality within the abdomen or pelvis. 3. Other nonemergent findings, as described above. Electronically authenticated by: EUGENE RICHARDS Date: 12/26/2023 13:27
--- NOTE | 2023-12-26 09:54 | CT_ITS ---
[address] [address] Patient Name: JOCELYN HUSSEIN MRN: [id number] date: 1955 Sex: M Assigned Patient Location: ER Current Patient Location: Accession/Order Number: [id number] Exam Date: 12/26/2023 11:38 Report Date: 12/26/2023 13:41 At the request of: VINCENZO BUSH Procedure: CT chest w con EXAM: CT chest w con HISTORY: trauma COMPARISON: None. TECHNIQUE: Axial CT imaging was performed through the chest with intravenous contrast. Multiplanar reformats were performed. Dose reduction techniques were achieved by using automated exposure control and/or adjustment of mA and/or kV according to patient size and/or use of iterative reconstruction technique. FINDINGS: Lungs: No consolidation, pneumothorax, or effusion. Airways: Normal. Mediastinum: No adenopathy. Aorta: No aneurysm. Cardiac: Normal size. No pericardial effusion. Pulmonary vasculature: Normal morphology. Bones: No acute bony abnormality. Axilla: No adenopathy. Thyroid gland: No abnormality demonstrated on provided imaging. Soft tissues: Unremarkable. Upper abdomen: Small hiatal hernia. Other findings: None. CT/CT chest w con IMPRESSION: No acute traumatic injury of the chest. Electronically authenticated by: SRINI JOINER Date: 12/26/2023 13:41
--- NOTE | 2023-12-26 09:54 | ECG_ITS ---
The [facility] Test Date: 2023-12-26 Pat Name: JOCELYN HUSSEIN Department: Room: - Gender: Male Digital Specialist: : 1955 Requested By: SHIVANI LIMON Order Number: [id number] Reading MD: BRADLEY CHAPMAN Measurements Intervals [place] Rate: 78 P: 63 CT: 200 QRS: -76 QRSD: 134 T: 37 QT: 386 QTc: 420 Interpretive Statements 1100 Sinus rhythm 2450 Right bundle branch block 2630 Left anterior fascicular block Low voltage across the precordium 9150 abnormal ECG Compared to ECG 12/27/2022 06:42:50 No significant changes Electronically Signed On 12-26-2023 20:01:56 EST by BRADLEY CHAPMAN
--- NOTE | 2023-12-26 09:54 | CT_ITS ---
[address] [address] Patient Name: JOCELYN HUSSEIN MRN: [id number] date: 1955 Sex: M Assigned Patient Location: ER Current Patient Location: ED.MAIN Accession/Order Number: [id number] Exam Date: 12/26/2023 10:20 Report Date: 12/26/2023 11:10 At the request of: VINCENZO BUSH Procedure: CT thoracic spine wo con PROCEDURE: CT lumbar spine wo con, CT thoracic spine wo con COMPARISON: None. HISTORY: pain, trauma TECHNIQUE: Axial, Coronal, and Sagittal CT images obtained without IV contrast. Dose reduction techniques were achieved by using automated exposure control and/or adjustment of mA and/or kV according to patient size and/or use of iterative reconstruction technique. FINDINGS: PARASPINAL AREA: Normal with no visible mass. DISCS: Mild multilevel disc space narrowing. Disc/osteophyte complexes L3-4, L4-5 and L5-S1 resulting in foraminal stenosis BONES: Normal alignment of the thoracic and lumbar vertebral bodies. 3 mm anterolisthesis of L4 and L5. Mild anterior wedging of T11 and L1, 10%. Moderate diffuse degenerative spondylosis. Mild facet osteoarthropathy OTHER: Negative. CT/CT thoracic spine wo con IMPRESSION: Mild anterior wedge compression fractures of T11 and L1 vertebral bodies, age indeterminate Electronically authenticated by: JOCELYN GOFF Date: 12/26/2023 11:10
--- NOTE | 2023-12-26 09:54 | CT_ITS ---
The [address] [address] Patient Name: JOCELYN HUSSEIN MRN: [id number] date: 1955 Sex: M Assigned Patient Location: ER Current Patient Location: ER Accession/Order Number: [id number] Exam Date: 12/26/2023 10:20 Report Date: 12/26/2023 11:14 At the request of: VINCENZO DSOUZA Procedure: CT cervical spine wo con EXAM: CT head/brain wo con, CT cervical spine wo con HISTORY: trauma COMPARISON: None. TECHNIQUE: Axial soft tissue and bone windows from the upper thoracic spine through the calvarium with coronal and sagittal reformats. CT dose reduction technique was used including Automated Exposure Control. Findings: Head: No depressed or calvarial fracture. The paranasal sinuses and mastoid air cells are well aerated. No air-fluid levels. No extra-axial fluid collection. There is a small subarachnoid bleed along the right posterior parietal lobe. The No mass effect or midline shift. The muinz-white matter differentiation is preserved. The brain parenchymal volume is mildly reduced yet likely age-appropriate. The ventricles are nondilated. Cavum septum pellucidum. The basal cisterns are patent. The craniovertebral junction is unremarkable. Cervical spine: No prevertebral soft tissue swelling. No acute fracture or malalignment. Multilevel degenerative spondylosis. No severe canal stenosis. The visualized lung apices are unremarkable. CT/CT cervical spine wo con IMPRESSION: 1. Small subarachnoid bleed. 2. No depressed or calvarial fracture. 3. No acute cervical spine fracture or malalignment. The results of study were discussed with Vincenzo Dsouza 1114 on 12/26/2023. Electronically authenticated by: EUGENE RICHARDS Date: 12/26/2023 11:14
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
--- OUTSIDE RECORDS SUMMARY | 2023-12-26 10:25 | XMS_ITS | CCD ---
Author Organization [facility] CliniSyia Care Team Providers Care Import/Export Specialist Name Role Phone CASPER WOMACK Primary Care Physician SHANTA ., DR CASPER George Primary Care Unavailable WOMACK ., DR CASPER George Admitting Unavailable WOMACK ., DR CASPER George Attending Unavailable WOMACK ., DR CASPER George Consulting Unavailable WOMACK ., DR CASPER George Primary Care Unavailable NILL ., DR BROWN Admitting Unavailable NILL ., DR BROWN Attending Unavailable NILL ., DR BROWN Consulting Unavailable FELICITY KING Consulting Unavailable GEMBUSSAHIL Consulting Unavailable DERREK WHITMORE Consulting Unavailable WOMACK ., DR CASPER George Admitting Unavailable WOMACK ., DR CASPER George Attending Unavailable WOMACK ., DR CASPER George Consulting Unavailable WOMACK ., DR CASPER George Primary Care Unavailable WOMACK ., DR CASPER George Admitting Unavailable WOMACK ., DR CASPER George Attending Unavailable WOMACK ., DR CASPER George Consulting Unavailable WOMACK ., DR CASPER George Primary Care Unavailable NILL ., DR BROWN Admitting Unavailable NILL ., DR BROWN Attending Unavailable NILL ., DR BROWN Consulting Unavailable WOMACK ., DR CASPER George Primary Care Unavailable WOMACK ., DR CASPER George Primary Care Unavailable WOMACK ., DR CASPER George Admitting Unavailable WOMACK ., DR CASPER George Attending Unavailable WOMACK ., DR CASPER George Consulting Unavailable WOMACK ., DR CASPER George Primary Care Unavailable WOMACK ., DR CASPER George Admitting Unavailable WOMACK ., DR CASPER George Attending Unavailable WOMACK ., DR CASPER George Consulting Unavailable CASPER WOMACK Primary Care Physician [phone] Shivani Limon Primary Care Physician [phone] MD Shivani Limon. Attending Unavailable MD Shivani Limon Admitting Unavailable MD Shivani Limon. Attending Unavailable MD Shivani Limon Attending Unavailable MD Shivani Limon. Attending Unavailable MD Shivani Limon Attending Unavailable MD Shivani Limon Admitting Unavailable MD Shivani Limon Attending Unavailable MD Shivani Limon Attending Unavailable MD Shivani Limon Admitting Unavailable MD Shivani Limon Attending Unavailable MD Shivani Limon Admitting Unavailable MD Shivani Limon Attending Unavailable MD Shivani Limon Admitting Unavailable Robert Sandhu Attending Unavailable MD Shivani Limon Attending Unavailable MD Shivani Limon Attending Unavailable MD Shivani Limon Attending Unavailable MD Shivani Limon Attending Unavailable MD Shivani Limon Attending Unavailable MD Shivani Limon Attending Unavailable Chet, SPEECH AND LANGUAGE TUTOR Jennie Christianson Attending Unavailable MD Shivani Limon Attending Unavailable DO Hugo Power Attending Provider MD Shivani Limon Primary Care Provider Hugo Power Attending Unavailable Ashly, Shivani E Primary Care Unavailable Hugo Power Admitting Unavailable Hugo Power Admitting Unavailable Hugo Power Attending Unavailable Ashly, Shivani E Primary Care Unavailable Casper Womack MD Primary Care Provider Shivani Limon MD Unavailable CASPER WOMACK Primary Care Unavailable ASHLY SHIVANI E Referring Unavailable Shivani Limon MD Primary Care Provider PROVIDER, UNKNOWN Admitting Unavailable PROVIDER, UNKNOWN Attending Unavailable ASHLY, SHIVANI E Primary Care Unavailable ROSS, SHIVANI E Referring Unavailable ROSS, SHIVANI E Primary Care Unavailable ROSS, SHIVANI E Referring Unavailable ROSS, SHIVANI E Primary Care Unavailable ROSS, SHIVANI E Referring Unavailable ROSS, SHIVANI E Primary Care Unavailable Shivani Limon MD Primary Care Provider Nancy Jane Unavailable Hugo Power DO Unavailable NANCY DELUCA Attending Unavailable ROSS, SHIVANI E Referring Unavailable LIZ SHERMAN Attending Unavailable LIZ SHERMAN Referring Unavailable HUGO POWER W Attending Unavailable HUGO POWER W Attending Unavailable HUGO POWER W Attending Unavailable NANCY DELUCA Referring Unavailable HUGO POWER W Attending Unavailable NANCY DELUCA Referring Unavailable Fidelina CONKLIN Attending Unavailable Shivani Limon Referring Unavailable Shivani Limon Attending Unavailable Allergies Allergy Classification Reported Allergen(s) Allergy Type Date of Onset Reaction(s) Facility (7 sources) Lisinopril; Translations: [lisinopril] Drug Allergy Unknown (qualifier value) General Surgery [facility] (1 source) Amino Acids Drug Allergy [facility] Rep[facility] (3 sources) Lisinopril Allergy to substance 4 Unknown [facility] Medications Current Medications Medication Drug Class(es) Dates Sig (Normalized) Sig (Original) acetaminophen 500 mg oral tablet (5 sources) Start: 11-01-2023 acetaminophen (Tylenol) 500 MG tablet Every 6 hours 11/01/2023 Active Start: 11-01-2023 Acetaminophen (Acetaminophen Pain Relief) 500 mg tablet Active 1000 MG PO Every 6 hours November 01, 2023 12:00am allopurinol 300 mg oral tablet (19 sources) Xanthine Oxidase Inhibitor Start: 12-10-2021 take 300 mg by mouth once daily in the morning Allopurinol Active 300 MG PO Every morning November 01, 2023 12:00am atorvastatin 10 mg oral tablet (15 sources) HMG-CoA Reductase Inhibitor Start: 11-16-2019 take 1 tablet by mouth once daily atorvastatin (Lipitor) 10 MG tablet See Instructions, TAKE 1 TABLET BY MOUTH EVERY DAY, # 30 tab(s), Refills(s) 0, Pharmacy: [facility] STORE [id number], 170.2, cm, 01/03/23 9:22:00 EST, Height/Length Dosing, 112.5, kg, 06/23/23 8:09:00 EDT, Weight Dosing 11/16/2019 Active canagliflozin 100 mg oral tablet (3 sources) Sodium-Glucose Cotransporter 2 Inhibitor Start: 12-30-2022 take 1 tablet by mouth once daily Invokana 100 mg oral tablet 100 mg = 1 tab(s), Oral, Daily, # 30 tab(s), Refills(s) 0, Pharmacy: [facility]/pharmacy #[id number], 170.2, cm, 12/30/22 15:16:00 EST, Height/Length Dosing, 112.6, kg, 12/30/22 15:16:00 EST, Weight Dosing Start Date: 12/30/22 Status: Ordered Start: 06-30-2022 take 1 tablet by ubaldo th once daily Invokana 100 mg oral tablet 100 mg = 1 tab(s), Oral, Daily, # 30 tab(s), Refills(s) 0, Pharmacy: [facility]/pharmacy #[id number], 170.2, cm, 06/01/22 8:48:00 EDT, Height/Length Dosing, 119.9, kg, 06/01/22 8:48:00 EDT, Weight Dosing Start Date: 06/30/22 Status: Ordered 0.5 ml dulaglutide 1.5 mg/ml auto-injector (1 source) GLP-1 Receptor Agonist Start: 10-11-2023 inject 0.75 mg by subcutaneous injection every week Trulicity Pen 0.75 mg/0.5 mL subcutaneous solution 0.75 mg, SubCutaneous, qWeek, # 12 EA, Refills(s) 0, [id number] 170.3, cm, 10/11/23 15:26:00 EDT, Height/Length Dosing, 104.8, kg, 10/11/23 15:26:00 EDT, Weight Dosing Start Date: 10/11/23 Status: Ordered hydroCHLOROthiazide 12.5 mg / losartan potassium 100 mg oral tablet (19 sources) Thiazide Diuretic, Angiotensin 2 Receptor Smooth Start: 12-10-2021 take 1 tablet by mouth once daily in the morning Losartan-Hydrochl orothiazide Active 1 TAB PO Every morning November 01, 2023 12:00am ketoconazole 20 mg/ml topical cream (2 sources) Azole Antifungal Start: 11-01-2023 Ketoconazole Active 1 APPLIC TOPICAL Twice daily November 01, 2023 12:00am levothyroxine sodium 0.075 mg oral tablet (14 sources) l-Thyroxine Start: 11-01-2023 take 1 tablet by mouth once levothyroxine (SYNTHROID) 75 mcg tablet Take 1 tablet by mouth every afternoon. 11/23/2023 Active Start: 08-26-2023 take 1 tablet by ubaldo th once daily levothyroxine 75 mcg (0.075 mg) Tab See Instructions, TAKE 1 TABLET BY MOUTH EVERY DAY, # 90 tab(s), Refills(s) 0, Pharmacy: [facility] STORE [id number], 170.3, cm, 06/30/23 8:40:00 EDT, Height/Length Dosing, 111.6, kg, 06/30/23 8:40:00 EDT, Weight Dosing Start Date: 08/26/23 Status: Ordered Start: 05-06-2023 take 1 tablet by ubaldo th once daily levothyroxine 75 mcg (0.075 mg) Tab See Instructions, TAKE 1 TABLET BY MOUTH EVERY DAY, # 90 tab(s), Refills(s) 0, Pharmacy: [facility] STORE [id number], 170.2, cm, 01/03/23 9:22:00 EST, Height/Length Dosing, 112.5, kg, 01/03/23 9:22:00 EST, Weight Dosing Start Date: 05/06/23 Status: Ordered Start: 12-30-2022 take 1 tablet by ubaldo once daily levothyroxine 75 mcg (0.075 mg) Tab See Instructions, TAKE 1 TABLET BY MOUTH EVERY DAY, # 90 tab(s), Refills(s) 0, Pharmacy: [facility]/pharmacy #[id number], 170.2, cm, 12/30/22 15:16:00 EST, Height/Length Dosing, 112.6, kg, 12/30/22 15:16:00 EST, Weight Dosing Start Date: 12/30/22 Status: Ordered Start: 09-20-2022 take 1 tablet by ubaldo once daily levothyroxine 75 mcg (0.075 mg) Tab See Instructions, TAKE 1 TABLET BY MOUTH EVERY DAY, # 90 tab(s), Refills(s) 0, Pharmacy: [facility] STORE [id number], 170.2, cm, 06/01/22 8:48:00 EDT, Height/Length Dosing, 119.9, kg, 06/01/22 8:48:00 EDT, Weight Dosing Start Date: 09/20/22 Status: Ordered meloxicam 15 mg oral tablet (6 sources) Nonsteroidal Anti-inflammatory Drug Start: 10-24-2023 take 1 tablet by mouth once daily meloxicam (Mobic) 15 MG tablet Take 15 mg by mouth Daily 10/24/2023 Active Start: 09-13-2023 take 1 tablet by ubaldo th once daily meloxicam 15 mg Tab 15 mg = 1 tab(s), Oral, Daily, # 30 tab(s), Refills(s) 5, Pharmacy: [facility]/pharmacy #[id number], 170.3, cm, 09/06/23 7:42:00 EDT, Height/Length Dosing, 101.3, kg, 09/06/23 7:42:00 EDT, Weight Dosing Start Date: 09/13/23 Status: Ordered 24 hr metFORMIN hydrochloride 500 mg extended release oral tablet (15 sources) Biguanide Start: 06-30-2023 take 1 tablet by mouth every twenty-four hours in the morning metFORMIN XR (Glucophage-XR) 500 MG 24 hr tablet Take 1,000 mg by mouth in the morning and 1,000 mg before bedtime. 06/30/2023 Active Start: 06-30-2023 take 2 tablets by mo uth twice daily in the evening metFORMIN ER (GLUCOPHAGE XR) 500 mg 24 hr tablet Take 500 mg by mouth two times a day. 2 tablets in the morning and 2 in the evening 06/30/2023 Active Start: 06-30-2023 take 2 tablets by mo uth twice daily Glucophage XR 500 mg Tab-ER 1,000 mg = 2 tab(s), Oral, BID, # 390 tab(s), Refills(s) 0, Pharmacy: [facility]/pharmacy #[id number], 170.3, cm, 06/30/23 8:40:00 EDT, Height/Length Dosing, 111.6, kg, 06/30/23 8:40:00 EDT, Weight Dosing Start Date: 06/30/23 Status: Ordered Start: 12-30-2022 take 1 tablet by ubaldo th three times daily metformin 500 mg Tab 500 mg = 1 tab(s), Oral, TID, # 270 tab(s), Refills(s) 1, Pharmacy: [facility]/pharmacy #[id number], 170.2, cm, 12/30/22 15:16:00 EST, Height/Length Dosing, 112.6, kg, 12/30/22 15:16:00 EST, Weight Dosing Start Date: 12/30/22 Status: Ordered Start: 09-17-2022 take 1 tablet by ubaldo th three times daily metformin 500 mg Tab 500 mg = 1 tab(s), Oral, TID, # 270 tab(s), Refills(s) 1, Pharmacy: [facility]/pharmacy #[id number], 170.2, cm, 06/01/22 8:48:00 EDT, Height/Length Dosing, 119.9, kg, 06/01/22 8:48:00 EDT, Weight Dosing Start Date: 09/17/22 Status: Ordered Start: 12-10-2021 take 1 tablet by ubaldo th three times daily metformin 500 mg oral tablet 500 mg = 1 tab(s), Oral, TID, Refills(s) 0 Start Date: 12/10/21 Status: Ordered methylPREDNISolone 4 mg oral tablet (1 source) Corticosteroid Start: 10-11-2023 End: 10-17-2023 Medrol 4 mg Tab = 1 packet(s), Oral, As Directed, as directed on package labeling, X 6 day(s), # 21 tab(s), Refills(s) 0, Pharmacy: [facility]/pharmacy #[id number], 170.3, cm, 10/11/23 15:26:00 EDT, Height/Length Dosing, 104.8, kg, 10/11/23 15:26:00 EDT, Weight Dosing Start Date: 10/11/23 Stop Date: 10/17/23 Status: Ordered 24 hr metoprolol succinate 100 mg extended release oral tablet (19 sources) beta-Adrenergic Smooth Start: 12-10-2021 take 100 mg by mouth once daily in the morning Metoprolol Succinate Active 100 MG PO Every morning November 01, 2023 12:00am mupirocin 0.02 mg/mg topical ointment (4 sources) RNA Synthetase Inhibitor Antibacterial Start: 06-01-2022 mupirocin Top 2% Oint 1 janell, Topical, TID, 30 gram, Refill(s) 1, [facility]/pharmacy #[id number], 170.2, cm, 06/01/22 8:48:00 EDT, Height/Length Dosing, 119.9, kg, 06/01/22 8:48:00 EDT, Weight Dosing Start Date: 06/01/22 Status: Ordered Start: 12-10-2021 mupirocin Top 2% Oint 1 janell, Topical, TID, Refill(s) 0 Start Date: 12/10/21 Status: Ordered naproxen sodium 220 mg oral tablet (3 sources) Nonsteroidal Anti-inflammatory Drug naproxen sodium (Aleve) 220 MG tablet every 12 (twelve) hours Active oxyCODONE hydrochloride 5 mg oral tablet (6 sources) Opioid Agonist Start: 10-11-19 take 1 capsule by mouth every six hours as needed for pain oxyCODONE 5 mg Cap 5 mg = 1 cap(s), Oral, q6hr, PRN for pain, # 28 cap(s), Refills(s) 0, Pharmacy: [facility]/pharmacy #[id number], 170.3, cm, 10/11/23 15:26:00 EDT, Height/Length Dosing, 104.8, kg, 10/11/23 15:26:00 EDT, Weight Dosing Start Date: 10/11/23 Status: Ordered Start: 10-11-2023 take 1 tablet by ubaldo th every six hours as needed oxyCODONE (Roxicodone) 5 MG immediate release tablet Take 5 mg by mouth every 6 (six) hours if needed 10/11/2023 Active Problems Active Problems Problem Classification Problem Date Documented Da te Episodic/Chronic Chronic kidney disease (8 sources) Chronic kidney disease stage 3A ; Translations: [Chronic kidney disease, stage 3a] Onset: 01-03-2023 Resolved: 10-29-2023 Chronic Comment on above: linked HTN with CKD per OP CDI policy. Diabetes mellitus without complication (14 sources) Diabetes mellitus; Translations: [Type 2 diabetes mellitus without complications] Onset: 06-10-2022 12-10-2021 Chronic Nonspecific chest pain (1 source) Chest pain 12-30-2022 Episodic Other male genital disorders (4 sources) Disorder of prostate, unspecified; Translations: [DISORDER OF PROSTATE UNSPECIFIED] Onset: 06-07-2022 Episodic Other non-epithelial cancer of skin (2 sources) Malignant neoplasm of skin of nose (external); Translations: [Unspecified malignant neoplasm of skin of nose] 12-21-2023 Episodic Other non-traumatic joint disorders (2 sources) Knee pain 06-23-2023 Episodic Other nutritional; endocrine; and metabolic disorders (1 source) Body mass index 40+ - severely obese 12-23-2021 Chronic Other nutritional; endocrine; and metabolic disorders (1 source) Morbid obesity; Translations: [Morbid (severe) obesity due to excess calories] Onset: 01-03-2023 Chronic Other nutritional; endocrine; and metabolic disorders (1 source) Obese class II; Translations: [Body mass index (BMI) 38.0-38.9, adult] Onset: 01-03-2023 Chronic Other nutritional; endocrine; and metabolic disorders (7 sources) Obesity caused by energy imbalance; Translations: [Class 2 obesity due to excess calories without serious comorbidity with body mass index (BMI) of 36.0 to 36.9 in adult] Onset: 12-14-2023 12-14-2023 Chronic Other nutritional; endocrine; and metabolic disorders (1 source) Other obesity due to excess calories; Translations: [Class 2 obesity due to excess calories without serious comorbidity with body mass index (BMI) of 36.0 to 36.9 in adult] Onset: 12-14-2023 Chronic Other nutritional; endocrine; and metabolic disorders (1 source) Body mass index (BMI) 36.0-36.9, adult; Translations: [Class 2 obesity due to excess calories without serious comorbidity with body mass index (BMI) of 36.0 to 36.9 in adult] Onset: 12-14-2023 Chronic Residual codes; unclassified (12 sources) Obstructive sleep apnea syndrome; Translations: [Obstructive sleep apnea (adult) (pediatric)] Onset: 12-14-2023 12-10-2021 Chronic Residual codes; unclassified (6 sources) Obstructive sleep apnea (adult) (pediatric); Translations: [OBSTRUCTIVE SLEEP APNEA] Onset: 01-08-2022 Chronic Spondylosis; intervertebral disc disorders; other back problems (13 sources) Sciatica; Translations: [Backache] Onset: 10-29-2023 Resolved: 10-29-2023 12-10-2021 Episodic Unclassified (3 sources) Patient encounter status 12-23-2021 Unclassified (1 source) CONTACT W/AND (SUSP) EXPOS COVID-19; Translations: [CONTACT W/AND (SUSP) EXPOS COVID-19] Onset: 01-30-2022 Unclassified (1 source) Class 2 obesity due to excess calories without serious comorbidity with body mass index (BMI) of 36.0 to 36.9 in adult; Translations: [Class 2 obesity due to excess calories without serious comorbidity with body mass index (BMI) of 36.0 to 36.9 in adult] Onset: 12-14-2023 Past or Other Problems Problem Classification Problem Date Documented Date Episodic/Chronic Abdominal pain (4 sources) Right inguinal pain; Translations: [Right lower quadrant pain] Onset: 10-29-2023 Resolved: 10-29-2023 08-31-2023 Episodic Asthma (9 sources) Asthma; Translations: [Unspecified asthma, uncomplicated] Onset: 01-31-2022 Resolved: 10-29-2023 12-10-2021 Chronic Calculus of urinary tract (8 sources) History of calculus of kidney; Translations: [Personal history of urinary calculi] Onset: 10-29-2023 Resolved: 10-29-2023 12-10-2021 Episodic Chronic ulcer of skin (4 sources) Pressure ulcer of buttock stage 1; Translations: [Pressure ulcer of unspecified buttock, stage 1] Onset: 10-29-2023 Resolved: 10-29-2023 10-10-2023 Chronic Comment on above: added per 10/10/2023 query response. Diabetes mellitus with complications (15 sources) Type 2 diabetes mellitus with unspecified complications; Translations: [Renal disorder due to type 2 diabetes mellitus] Onset: 10-03-2015 Resolved: 10-29-2023 Chronic Disorders of lipid metabolism (19 sources) Hyperlipidemia; Translations: [Hyperlipidemia, unspecified] Onset: 12-03-2021 Resolved: 10-29-2023 12-10-2021 Chronic Essential hypertension (20 sources) Hypertensive disorder; Translations: [Essential (primary) hypertension] Onset: 02-21-2009 Resolved: 10-29-2023 12-10-2021 Chronic Gout and other crystal arthropathies (9 sources) Gout; Translations: [Gout, unspecified] Onset: 06-10-2022 Resolved: 10-29-2023 12-10-2021 Chronic Joint disorders and dislocations; trauma-related (3 sources) Derangement of left knee; Translations: [Unspecified internal derangement of left knee] Onset: 10-29-2023 Resolved: 10-29-2023 10-29-2023 Chronic Osteoarthritis (15 sources) Degenerative joint disease of shoulder region; Translations: [Primary osteoarthritis, unspecified shoulder] Onset: 01-17-2012 Resolved: 10-29-2023 01-17-2012 Chronic Other aftercare (1 source) 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; Translations: [RESIDENTIAL USE ORAL HYPOGLYCEMIC DX] Onset: 01-31-2022 Episodic Other aftercare (1 source) Other senior living (current) drug therapy; Translations: [OTH RESIDENTIAL CURRENT DRUG THERAPY] Onset: 01-31-2022 Episodic Other ear and sense organ disorders (8 sources) Hearing loss; Translations: [Unspecified hearing loss, unspecified ear] Onset: 10-29-2023 Resolved: 10-29-2023 12-10-2021 Chronic Other ear and sense organ disorders (3 sources) Sensorineural hearing loss, bilateral; Translations: [Sensorineural hearing loss, bilateral] Onset: 10-29-2023 Resolved: 10-29-2023 10-29-2023 Chronic Other ear and sense organ disorders (3 sources) Does use hearing aid; Translations: [Presence of external hearing-aid] Onset: 02-21-2009 Resolved: 10-29-2023 10-29-2023 Episodic Other male genital disorders (7 sources) Disorder of prostate; Translations: [Disorder of prostate, unspecified] Onset: 10-29-2023 Resolved: 10-29-2023 12-10-2021 Episodic Other nervous system disorders (8 sources) Gray's palsy; Translations: [Gray's palsy] Onset: 10-29-2023 Resolved: 10-29-2023 12-10-2021 Episodic Other non-traumatic joint disorders (5 sources) Hip pain; Translations: [Pain in unspecified hip] Onset: 10-29-2023 Resolved: 10-29-2023 08-31-2023 Episodic Other non-traumatic joint disorders (3 sources) Pain in left knee; Translations: [Pain in joint, lower leg] Onset: 10-29-2023 Resolved: 10-29-2023 10-29-2023 Episodic Other nutritional; endocrine; and metabolic disorders (6 sources) Obese class III; Translations: [Class 3 obesity] Onset: 10-29-2023 Resolved: 10-29-2023 06-01-2022 Chronic Other screening for suspected conditions (not mental disorders or infectious disease) (11 sources) Screening for malignant neoplasm of colon done; Translations: [Encounter for screening for malignant neoplasm of colon] Onset: 12-23-2021 Resolved: 10-29-2023 Episodic Residual codes; unclassified (3 sources) Sleep apnea; Translations: [Sleep apnea, unspecified] Onset: 07-21-2008 Resolved: 10-29-2023 10-29-2023 Chronic Screening and history of mental health and substance abuse codes (3 sources) H/O: anxiety state; Translations: [Personal history of other mental and behavioral disorders] Onset: 02-21-1989 Resolved: 10-29-2023 10-29-2023 Episodic Thyroid disorders (20 sources) Subclinical hypothyroidism; Translations: [Other specified hypothyroidism] Onset: 02-11-2022 Resolved: 10-29-2023 12-10-2021 Chronic Results Test Name Value Interpretation Reference Range Facil it Family Medicine Office/Clini c Noteon 12-22-2023 Family Medicine Office/Clinic Note Family Medicine Office/Clinic Note Chief Complaint The patient reports hip and groin pain. HPI Staff Jocelyn is a 68 year old male presenting to discuss his recent MRI results MRI done in [place] No pain when he sits but when he's up walking, rates it a 7-8 History of Present Illness The patient is a 68-year-old male presenting with hip and groin pain. This condition primarily affects the left side but sometimes involves both sides and occasionally shifts to the center. Initially, the pain was located in the back before moving to the front and involving the groin. The patient describes exacerbation of the pain upon walking, while sitting appears to alleviate it. The onset and progression of the discomfort have not been definitively dated, but recent intensification is noted over the past few days. The patient denies issues with urination but reports pain localized in the groin and scrotal area when standing or walking. Previous imaging, including an MRI, was performed while the patient was unable to maintain stillness due to pain, resulting in unclear images. The MRI findings included minor bilateral characteristics suggestive of hernias without extensive protrusion. The patient's medication history includes the use of meloxicam, ibuprofen, and Tylenol for pain management. The patient mentions discussing vascular causes with a non-disclosed medical person but notes the absence of any vascular consultation or diagnosis. Review of Systems PHQ Score Initial Depression Screen Score: 2 SCORE Physical Exam Vitals & Measurements T: 36.7 ???C(Oral) HR: 80(Peripheral) RR: 16 BP: 150/92 SpO2: 98% HT: 68 in HT: 173 cm WT: 111.1 kg WT: 244.42 lb BMI: 37.12 General: alert, no acute distress ENMT: oral mucosa moist Cardiovascular: Regular rate and rhythm, normal peripheral perfusion Respiratory: Lungs clear to auscultation, respirations non labored Extremities: no deformity, no trauma Neurological: oriented x 4, level of consciousness appropriate for age, CN II-XII intact, motor strength equal & normal bilaterally, speech normal Abdomen: Soft, Non-tender, Non-distended, + Bowel sounds Assessment/Plan 1. Pelvic and perineal pain (R10.2) Plan to refer the patient for orthopedic and pain management consultations. Recommend discontinuation of meloxicam with continued use of ibuprofen as needed. Urology consultation is advised to rule out other possible genitourinary contributions due to reported scrotal discomfort when ambulating. Vascular etiology is considered less likely without consistent evidence, but remains a consideration based on future findings. [place] [facility] [place] [facility] [place] Ref[place] [facility] [place] [facility] [place] 2. Bilateral inguinal hernia, without obstruction or gangrene, not specified as recurrent (K40.20) Fat in the inguinal canal. Unsure if this is the cause of the pain. Will put a referral in. Potential surgical evaluation for inguinal hernia may be required if pain persists and other investigations do not provide the proper resolution or diagnosis. Consideration for further diagnostic imaging after initial orthopedic and urology consultations may provide additional clarity. Ordered: [facility] [place] Ref[place] [facility] [place] Ref[place] [facility] [place] Amb[place] Ref[place] [facility] [place] Ambulatory Referral 3. Exogenous obesity (E66.09: Other obesity due to excess calories) Focus remains on lifestyle interventions, including dietary adjustments and potential engagement with a ladle builder to help modify caloric intake and promote weight loss. Ordered: Body Mass Index (BMI) documented 3008F Current tobacco non-user 1036F Depression Screening Negative 3352F [facility] Ref[place] [facility] [place] Amb[place] Ref[place] [facility] [place] Amb[place] Ref[place] [facility] [place] Amb[place] Referral Most recent diastolic blood pressure >=90 mm Hg 3080F Most recent systolic blood pressure >= 140 mm Hg 3077F Patient screen for fall risk: no falls in last year or 1 fall with no injury in last year 1101F 4. Nonsmoker (Z78.9: Other specified health status) No specific interventions are required at this time given the patient's non-smoking status. Ordered: Body Mass Index (BMI) documented 3008F Current tobacco non-user 1036F Depression Screening Negative 3352F [facility] Ref[place] [facility] [place] Amb[place] Ref[place] [facility] [place] Amb[place] Ref[place] [facility] [place] Amb[place] Referral Most recent diastolic blood pressure >=90 mm Hg 3080F Most recent systolic blood pressure >= 140 mm Hg 3077F Patient screen for fall risk: no falls in last year or 1 fall with no injury in last year 1101F 5. BMI 37.0-37.9, adult (Z68.37: Body mass index [BMI] 37.0-37.9, adult) No specific management changes discussed directly in this conversation. General weight management and lifestyle modifications are essential a (more content not included)... [facility] Comment on above: Result Comment: Elec tronically Signed By: Ashly HENDRICKS, Shivani Mullen\.br\Date and Time Signed: 12/22/23 14:32 EDT ANES POSTPROC EVALon 024 ANES POSTPROC EVAL HNO ID: [id number] Author: MARLENE MOREL MD Service: Anesthesiology Author Type: Physician Type: Anesthesia Postprocedure Evaluation Filed: 12/20/2023 11:19 Note Text: POST ANESTHESIA EVALUATION NOTE : 1955 Procedure Summary Date: 12/20/23 Room / Location: RADIOLOGY MODALITY / MM IR Anesthesia Start: 1015 Anesthesia Stop: 1106 Procedure: MRI ANESTHESIA Diagnosis: Other back pain, unspecified chronicity (Other back pain, unspecified chronicity [M54.89]) Surgeons: Fidelina Beal MD, MD Responsible Provider: Marlene Morel MD Anesthesia Type: MAC ASA Status: 2 Anesthesia Type: MAC Last Vitals Vitals Value Taken Time BP 103/53 12/20/23 1116 Temp 36.7 ?C (98.1 ?F) 12/20/23 0855 Pulse 64 12/20/23 1119 Resp 14 12/20/23 1119 SpO2 95 % 12/20/23 1119 Vitals shown include unfiled device data. [facility] AN POST OP NOTE Anesthesia Observations No Documentation SIGNATURE: Marlene Morel MD PATIENT NAME: Jocelyn Hussein DATE: December 20, 2023 TIME: 11:19 AM CSN: [id number] [place] ANES PRE-OPon 12-20-2023 ANES PRE-OP HNO ID: [id number] Author: MARLENE MOREL MD Service: Anesthesiology Author Type: Physician Type: Anesthesia Preprocedure Evaluation Filed: 12/20/2023 07:16 Note Text: ANESTHESIOLOGY DAY OF SURGERY NOTE : 1955 Procedure Information Date/Time: 12/20/23 1030 Procedure: MRI ANESTHESIA Location: RADIOLOGY MODALITY / IR Surgeons: Fidelina Beal MD, MD Estimated body mass index is 36.81 kg/m? as calculated from the following: Height as of 12/14/23: 170.2 cm (5' 7 ). Weight as of 12/14/23: 106.6 kg (235 lb). Most recent hematocrit and potassium results: No results found for this basename: HCT,HEMATOCRIT,K,POTA SSIUM Relevant Problems ANESTHESIA (+) AVELINA (obstructive sleep apnea) CARDIO (+) Primary hypertension ENDO (+) Other specified hypothyroidism (+) Type 2 diabetes mellitus without complication, without long-term current use of insulin (HCC) PULMONARY (+) AVELINA (obstructive sleep apnea) I - PHYSICAL EVALUATION AIRWAY Patient intubated: No. Tracheostomy tube not present Mallampati: III. TM distance: >3 FB. Neck ROM: full ROM without neurological symptoms. Mouth opening: adequate. Short neck: no. Thick neck: no Additional exam findings: no II - ANESTHESIA PLAN ASA Score: 2 Anesthetic Plan: MAC NPO Status: adequate Beta Smooth Monitoring Plan Monitoring plan: standard ASA. Post Procedure Analgesic Plan Postoperative analgesic plan: parenteral or oral opioids and multimodal analgesia. Patient / Surrogate agrees to blood products: blood products not planned Significant changes in the patient condition since the History and Physical, not otherwise documented in primary service progress note: no. No vitals data found for the desired time range. No current facility-administered medications on file as of . Outpatient Medications as of Medication Sig metFORMIN ER (GLUCOPHAGE XR) 500 mg 24 hr tablet Take 500 mg by mouth two times a day. 2 tablets in the morning and 2 in the evening atorvastatin (LIPITOR) 10 mg tablet Take 10 mg by mouth once daily. levothyroxine (SYNTHROID) 75 mcg tablet Take 1 tablet by mouth every afternoon. Losartan-Hydrochlorot hiazide 100-12.5 mg per tablet Take 1 tablet by mouth once daily. metoprolol succinate XL, long acting, (TOPROL XL) 100 mg Tb24 Take 100 mg by mouth. allopurinol 300 mg tablet Take 300 mg by mouth once daily. I have interviewed and examined the patient. I have reviewed the medical record and/or the pre-anesthesia evaluation, pertinent labs, and test results. This contains updated information obtained within 48 hours of Surgery/Procedure. SIGNATURE: Marlene Morel MD PATIENT NAME: Jocelyn Hussein DATE: December 20, 2023 TIME: 7:16 AM CSN: [id number] [facility] 12-20-2023 [facility] Telephone (MMHR[facility]) JOCELYN HUSSEIN ([id number]) 1955 Date Time Provider Department 12/20/23 LYDIA LOGAN [facility] During your visit today, we recorded the following information about you: Allergies As of Date: 12/20/2023 (No Known Allergies) Date Reviewed: 12/20/2023 Reviewed by: Lorena Simons, PILAR - Fully Assessed Reason for Visit: Radiology Pre Procedure Instructions [1506] Prescriptions as of 12/20/2023 - metFORMIN ER (GLUCOPHAGE XR) 500 mg 24 hr tablet Take 500 mg by mouth two times a day. 2 tablets in the morning and 2 in the evening - atorvastatin (LIPITOR) 10 mg tablet Take 10 mg by mouth once daily. - levothyroxine (SYNTHROID) 75 mcg tablet Take 1 tablet by mouth every afternoon. - Losartan-Hydrochlorot hiazide 100-12.5 mg per tablet Take 1 tablet by mouth once daily. - metoprolol succinate XL, long acting, (TOPROL XL) 100 mg Tb24 Take 100 mg by mouth. - allopurinol 300 mg tablet Take 300 mg by mouth once daily. 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 Partial visualization of lumbar degenerative change. Signal Tester: CRISTY Transcribe Date/Time: Dec 20 2023 1:30P Dictated by : FIDELINA BRYAN MD This examination was interpreted and the report reviewed and electronically signed by: FIDELINA BRYAN MD on Dec 20 2023 1:33PM [facility] RADIOLOGY * * *Final Report* * * DATE OF EXAM: Dec 20 2023 11:11AM MMM 0741 - MRI PELVIS WO IVCON / PROCEDURE REASON: M54.31, R10.31, M25.551 * * * * Physician Interpretation * * * * MRI OF THE PELVIS (MUSCULOSKELETAL) WITHOUT CONTRAST HISTORY: M54.31, R10.31, M25.551. Pelvic pain especially at the RIGHT hip. Additional back pain. TECHNIQUE: MRI of the pelvis (musculoskeletal) including routine pulse sequences in sagittal, coronal, and axial planes. No IV contrast was given. The examination was performed with anesthesia. COMPARISON: No comparison MRI. RESULT: Some detail slightly limited by motion artifact which was not able to be controlled during the anesthesia. There is no evidence of fracture. There is no diffuse marrow replacement process or pathologic bone lesion identified. There are no changes of femoral head AVN. There is no hip joint effusion. The cartilage at each hip joint is grossly preserved with no associated subchondral cyst formation or edema at either hip. There are areas of degenerative change at the partially visualized lower lumbar spine. The sacroiliac joints show no abnormality. Muscle bulk grossly preserved with no edema. There are small bilateral fat-containing inguinal hernias. Hamstring tendons and gluteal tendons appear intact. Iliopsoas tendons appear intact with slight limited detail. Localizer images: No additional findings. - [facility] Provider, [facility] Ivette Dailey - 12/20/2023 * * *Final Report* * * DATE OF EXAM: Dec 20 2023 11:11AM MMM 0741 - MRI PELVIS WO IVCON / PROCEDURE REASON: M54.31, R10.31, M25.551 * * * * Physician Interpretation * * * * MRI OF THE PELVIS (MUSCULOSKELETAL) WITHOUT CONTRAST HISTORY: M54.31, R10.31, M25.551. Pelvic pain especially at the RIGHT hip. Additional back pain. TECHNIQUE: MRI of the pelvis (musculoskeletal) including routine pulse sequences in sagittal, coronal, and axial planes. No IV contrast was given. The examination was performed with anesthesia. COMPARISON: No comparison MRI. RESULT: Some detail slightly limited by motion artifact which was not able to be controlled during the anesthesia. There is no evidence of fracture. There is no diffuse marrow replacement process or pathologic bone lesion identified. There are no changes of femoral head AVN. There is no hip joint effusion. The cartilage at each hip joint is grossly preserved with no associated subchondral cyst formation or edema at either hip. There are areas of degenerative change at the partially visualized lower lumbar spine. The sacroiliac joints show no abnormality. Muscle bulk grossly preserved with no edema. There are small bilateral fat-containing inguinal hernias. Hamstring tendons and gluteal tendons appear intact. Iliopsoas tendons appear intact with slight limited detail. Localizer images: No additional findings. - IMPRESSION IMPRESSION: No specific pelvis/hip abnormality. Partial visualization of lumbar degenerative change. Signal T[facility] Transcribe Date/Time: Dec 20 2023 1:30P Dictated by : FIDELINA BRYAN MD This examination was interpreted and the report reviewed and electronically signed by: FIDELINA BRYAN MD on Dec 20 2023 1:33PM EST [facility] Radiology Study observation (narrative) [facility] MR Pelvis WO contrastOrdered By: [facility] Provider on 12-20-2023 [facility] MRI PELVIS WO IVCONon 2023 MRI PELVIS WO IVCON * * *Final Report* * * DATE OF EXAM: Dec 20 2023 11:11AM MMM 0741 - MRI PELVIS WO IVCON / PROCEDURE REASON: M54.31, R10.31, M25.551 * * * * Physician Interpretation * * * * MRI OF THE PELVIS (MUSCULOSKELETAL) WITHOUT CONTRAST HISTORY: M54.31, R10.31, M25.551. Pelvic pain especially at the RIGHT hip. Additional back pain. TECHNIQUE: MRI of the pelvis (musculoskeletal) including routine pulse sequences in sagittal, coronal, and axial planes. No IV contrast was given. The examination was performed with anesthesia. COMPARISON: No comparison MRI. RESULT: Some detail slightly limited by motion artifact which was not able to be controlled during the anesthesia. There is no evidence of fracture. There is no diffuse marrow replacement process or pathologic bone lesion identified. There are no changes of femoral head AVN. There is no hip joint effusion. The cartilage at each hip joint is grossly preserved with no associated subchondral cyst formation or edema at either hip. There are areas of degenerative change at the partially visualized lower lumbar spine. The sacroiliac joints show no abnormality. Muscle bulk grossly preserved with no edema. There are small bilateral fat-containing inguinal hernias. Hamstring tendons and gluteal tendons appear intact. Iliopsoas tendons appear intact with slight limited detail. Localizer images: No additional findings. - IMPRESSION: No specific pelvis/hip abnormality. Partial visualization of lumbar degenerative change. Signal Tester: [facility] Transcribe Date/Time: Dec 20 2023 1:30P Dictated by : FIDELINA BRYAN MD This examination was interpreted and the report reviewed and electronically signed by: FIDELINA BRYAN MD on Dec 20 2023 1:33PM EST [id number] N [place] NURSING PROGon 12-20-2023 NURSING PROG HNO ID: [id number] Author: LORENA SIMONS RN Service: Interventional Radiology Author Type: Registered Nurse Type: Nursing Progress Note Filed: 12/20/2023 11:29 Note Text: [facility] MRI Anesthesia Note PATIENT NAME: Jocelyn Hussein DATE OF SERVICE: December 20, 2023 TIME: 11:25 AM PATIENT WEIGHT: 235LBS PATIENT IDENTITY VERIFICATION COMPLETED USING TWO (2) STANDARD IDENTIFIERS: Name and Date of confirmed by patient verbally and Name and Date of confirmed by identification band. FALL SCREENING: Has the patient had 2 falls in the last year or 1 fall with injury or currently using an Ambulatory Assistive Device (Walker, Cane, Wheelchair, Crutches, etc.)? Yes, Patient High Risk for Falls What interventions were put in place to prevent falls during this visit? Non-Skid Socks Used, Yellow Falls Risk Wristband Applied, Instructed Patient to Call for Help if Needed, and Increased Observations by Caregivers PATIENT GENDER DATA: Male PATIENT RELEVANT IMPLANT DATA REVIEWED: Not Applicable ALLERGIES: Reviewed and unchanged CONTRAST ALLERGY: No MEDICATIONS REVIEWED: YES EXAM: MRI - CONTRAST TYPE: GROUP II IV SITE: Ambulatory: A peripheral IV was started in the Right forearm with a Angio cath: 20 gauge. PERIPHERAL IV ACCESS: Discontinued ANXIOLYSIS/ANESTHESIA : Please see Outpatient Preoperative Nursing Care Record and Anesthesia Record for further details. PATIENT EDUCATION TOPIC: PROCEDURE / SURGERY: Procedure/Surgery: MRI with anesthesia READINESS TO LEARN COGNITIVE ABILITY: Alert and oriented MOTIVATION TO LEARN: Eager Interested FAMILY SUPPORT: High - Very involved in pt care INSTRUCTION PROVIDED TO: Patient and family member PATIENT LEARNS BEST BY: Individual Instruction Written Instruction - Hand-outs Verbal Instruction Multiple Methods FACTORS AFFECTING LEARNING: None PHYSICAL LIMITATIONS AFFECTING LEARNING: None LEARNING RESPONSE DIAGNOSIS: ADULT: Back pain PATIENT/FAMILY RESPONSE: Verbalizes understanding of: MEDICATION SIDE EFFECTS-Side effects associated with the medication that warrant a call to the physician PAIN MANAGEMENT-Effective strategies to manage pain in addition to pain medication POST-PROCEDURE INSTRUCTIONS-Correct actions to take to reduce post procedure complications SYMPTOM MANAGEMENT-Correct actions to take to manage symptoms associated with his/her disease/illness WORSENING CONDITION-Signs and symptoms of a worsening condition that warrant a call to the physician Information received as demonstrated by interest and questions METHOD OF INSTRUCTION: Individual instruction Written instruction/Handouts Verbal instruction FOLLOW-UP PLAN: Patient instructed to call with any further issues Contact information given. INSTRUCTIONAL AIDS USED: NA SUPPLEMENTAL MATERIAL PROVIDED TO PATIENT: Telephone instructions Post sedation/anesthesia instructions REFERRAL (RECOMMENDATION): None PATIENT DISCHARGED TO: Home/Self Care SIGNATURE: Lorena Simons RN PATIENT NAME: Jocelyn Hussein DATE: December 20, 2023 TIME: 11:25 AM [facility] 12-19-2023 [facility] Telephone (MMHRAD) JOCELYN HUSSEIN ([id number]) 1955 M Date Time Provider Department 12/19/23 LORENA SIMONS [facility] During your visit today, we recorded the following information about you: Allergies As of Date: 12/19/2023 (No Known Allergies) Date Reviewed: 12/14/2023 Reviewed by: Jean Pierre Hollis PA-C - Fully Assessed Reason for Visit: MRI Appointment [1569] Prescriptions as of 12/19/2023 - metFORMIN ER (GLUCOPHAGE XR) 500 mg 24 hr tablet Take 500 mg by mouth two times a day. 2 tablets in the morning and 2 in the evening - atorvastatin (LIPITOR) 10 mg tablet Take 10 mg by mouth once daily. - levothyroxine (SYNTHROID) 75 mcg tablet Take 1 tablet by mouth every afternoon. - Losartan-Hydrochlorot hiazide 100-12.5 mg per tablet Take 1 tablet by mouth once daily. - metoprolol succinate XL, long acting, (TOPROL XL) 100 mg Tb24 Take 100 mg by mouth. - allopurinol 300 mg tablet Take 300 mg by mouth once daily. 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] 01/17/2012 Primary hypertension [I10] 12/14/2023 Type 2 diabetes mellitus without complication, *12/14/2023 AVELINA (obstructive sleep apnea) [G47.33] 12/14/2023 Class 2 obesity due to excess calories without *12/14/2023 Other specified hypothyroidism [E03.8] 12/14/2023 Encounter Status:Closed by LORENA SIMONS on 12/19/23 [place] Surgical pathology studyon 1 Surgical pathology study Pathology report.total SEE COMMENT Dermatopathology Report Case: [id number] Authorizing Provider: Jayy Garcia MD PhD Collected: 12/19/2023 1023 Ordering Location: [facility] Received: 12/19/2023 1023 [facility] Pathologist: Kvng Sotomayor MD Specimen: OUTSIDE BLOCK(S)/SLIDE(S), 2 SLIDES, [facility], #[id number] (Bx: 07/20/23) Path report.final diagnosis SEE COMMENT 2 SLIDES, [facility], #[id number] (Bx: 07/20/23) SKIN, RIGHT NOSE, SHAVE BIOPSY: MELANOMA IN SITU, 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 Note: Microscopic examination reveals a specimen that extends into the superficial dermis. There is dense solar elastosis and there is an asymmetric proliferation of nested and single atypical melanocytes along the dermal-epidermal junction. The melanocytes have mildly enlarged nuclei with mild to moderate cytoplasm. Electronically signed out by Kvng Sotomayor MD Synoptic report SEE COMMENT MELANOMA OF THE SKIN: Biopsy MELANOMA OF THE SKIN: BIOPSY - All Specimens 8th Edition - Protocol posted: 05/13/2021 SPECIMEN Procedure: Biopsy, shave Specimen Laterality: Right TUMOR Tumor Site: Skin of other and unspecified parts of face: Right nose Histologic Type: Melanoma in situ, lentigo maligna type Ulceration: Not identified Tumor Regression: Not identified MARGINS: Margin Status for Melanoma in Situ: Melanoma in situ present at margin Margin(s) Involved by Melanoma in Situ: Peripheral Margin(s) Involved by Melanoma in Situ: Deep PATHOLOGIC STAGE CLASSIFICATION (pTNM, AJCC 8th Edition): pT Category: pTis Path report.relevant Hx Shave Tangential/Neoplasm of unspecified behavior of bone, soft tissue, and skin. Solar lentigo vs lentigo maligna 1.0 x 1.0 cm hyperpigmented patch. Path report.gross observation SEE COMMENT A. OUTSIDE BLOCK(S)/SLIDE(S). Received for consultation from [facility] are two slides labeled [id number] (Bx: 07/20/23) along with the corresponding pathology report. [facility] Ambulatory Comment on above: Order Comment: Mater ials Received: 2 SLIDES, [facility], #[id number] (Bx: 07/20/23) HISTORY PHYSICALon HISTORY PHYSICAL HNO ID: [id number] Author: JEAN PIERRE HOLLIS PA-C Service: ? Author Type: Physician Clay Molder Type: H&P Filed: 12/14/2023 11:34 Note Text: [facility] HISTORY AND PHYSICAL EXAMINATION SERVICE DATE: 12/14/2023 SERVICE TIME: 11:06 AM PRIMARY CARE PHYSICIAN: Casper Womack MD Assessment Patient has the following medical conditions which may affect es-operative course: Primary hypertension -on Losartan-HCTZ and Metoprolol -does not check BP at home Type 2 diabetes mellitus without complication, without long-term current use of insulin (HCC) -on Metformin -last A1c 6.0% per patient in 08/2023 -FBS ~130 AVELINA (obstructive sleep apnea) -compliant with CPAP Class 2 obesity due to excess calories without serious comorbidity with body mass index (BMI) of 36.0 to 36.9 in adult -BMI 36.81 Other specified hypothyroidism -on Levothyroxine Koenig Activity Status Index: METS: Walk indoors, such as around the house (1.75 METs) Do light work around the house, such as dusting or washing dishes (2.70 METs) Take care of self; that is eating, dressing, bathing, using the toilet (2.75 METs) Walk a block or two on level ground (2.75 METs) Climb a flight of stairs or walk up a hill (5.50 METs) DASI Score: 15.45 (Activity currently limited by back/hip pain ) Patient denies any chest pain or undue shortness of breath with the above physical activity. Clinical Frailty Scale: 3. Well, with treated comorbid disease STOP-Bang Score: STOP-Bang Score: 0 (Diagnosed with AVELINA, compliant with CPAP ) ANESTHESIA FINDINGS: Intubation History: No history of difficult intubation Significant Anesthesia Considerations: none Airway History: No history of difficult airway I - PHYSICAL EVALUATION AIRWAY Patient intubated: No. Mallampati: III. TM distance: >3 FB. Neck ROM: full ROM without neurological symptoms. Mouth opening: adequate. Short neck: yes. Thick neck: yes Dewitt present: no Lip Bite Test: I Microretrognathia/Jairo ronagthia/Recessed Chin: No DENTAL Dental findings: teeth intact. II - ANESTHESIA PLAN Anesthetic plan additional comments: *[facility] - anesthesia choice. Beta Smooth Monitoring Plan Post Procedure Analgesic Plan PLAN This patient is optimally prepared for surgery. CONSULTS: Patient does not require consults for optimization at this time. The Following Tests/Procedures Have Been Initiated: Labs not indicated per [facility] protocol, EKG not indicated per [facility] protocol Planned Anesthetic: Per anesthesia choice This is a virtual visit using alternative video platform. It required patient-provider interaction for the medical decision making as documented below. REASON FOR VISIT: Jocelyn Hussein is a 68 year old male who is scheduled for MRI under [facility] at the request of Dr. Shivani Limon for consultation. My final recommendation will be communicated back to the requesting physician by way of shared medical record or letter. Subjective The patient has the following: COVID-19 Immunization Status Overdue - Covid-19 Vaccine () Overdue since 10/23/2023 02/01/2022 Imm Admin: COVID-19 vaccine, age 12+ yr, bivalent (PFIZER-BIONTECH) 12/16/2020 Imm Admin: COVID-19 original vaccine, age 12+ yr, monovalent (PFIZER-BIONTECH - PURPLE TOP) 04/25/2020 Imm Admin: COVID-19 original vaccine, age 12+ yr, monovalent (PFIZER-BIONTECH - PURPLE TOP) Only the first 3 history entries have been loaded, but more history exists. CHIEF COMPLAINT: Back pain with sciatica HPI: Jocelyn Hussein is a 68 year old male who presents to [facility] today for preop exam. Patient is scheduled for the above procedure on 12/20/23. Patient has been having back pain and sciatica for the past several months. He states it has been getting progressively worse and has begun to affect his activity levels. He has claustrophobia and elects to have MRI under [facility]. Denies fevers, chills, chest pain, and SOB. This is a virtual visit. The visit was conducted using alternative video platform. It required patient-provider interaction for the medical decision making as documented below. I have communicated my name and active licensure. The patient's identity and physical location were verified at the time of this visit. Either the patient or their legal customer account representative has been informed of the risks and benefits of and alternatives to treatment through a remote evaluation and consents to proceed with the evaluation remotely. REVIEW OF SYSTEMS: General: No weight loss, malaise or fevers. Neurological: Negative for: headaches, impaired sensorium, seizures, TIA and strokes. Respiratory: Positive for: obstructive sleep apnea. Negative for: asthma, COPD, current cough, dyspnea, pneumonia within 6 weeks, tobacco use and URI < 2 weeks. Cardiovascular: Positive for: hyperlipidemia and hypertension Negative for: angina, antico (more content not included)... Normal [facility] 12-07-2023 [facility] Telephone (MRIQ) JOVITAJOCELYN ([id number]) 1955 M Date Time Provider Department 12/07/23 AMNA ESCALERA MRI During your visit today, we recorded the following information about you: Amna Escalera RN 12/07/2023 12:17 PM Signed Radiology Service Pre Anesthesia Telephone Call PATIENT NAME: Jocelyn Hussein DATE OF CALL: December 07, 2023 TIME: 12:13 PM PATIENT TYPE: This nurse called the pt to offer education about anxiolysis but there was no answer so a detailed message was left along with a call back number. SIGNED BY: Amna Escalera RN December 07, 2023 12:13 PM Allergies As of Date: 12/07/2023 (No Known Allergies) Date Reviewed: 01/17/2012 Reviewed by: Mallory Patel Ma - Fully Assessed Reason for Visit: Appointment [186] Cmt: Anxiolysis Education Prescriptions as of 12/07/2023 - Losartan-Hydrochlorot hiazide 100-12.5 mg per tablet Take 1 tablet by mouth once daily. - metoprolol succinate XL, long acting, (TOPROL XL) 100 mg Tb24 Take 100 mg by mouth. - allopurinol 300 mg tablet Take 300 mg by mouth once daily. 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 The pt was educated about anxiolysis. Pt reports that he is extremely claustrophobic and thought he would be under Gen A. Pt reports that anxiolysis will not help in his situation. Pt advised to call the ordering to discuss this and possible reschedule with Gen A. Pt reports that he has had lab work completed within the time frame for Gen A. All questions answered at this time. Pt verbalizes understanding. SIGNED BY: Amna Escalera RN December 07, 2023 4:01 PM Allergies As of Date: 12/07/2023 (No Known Allergies) Date Reviewed: 01/17/2012 Reviewed by: Mallory Patel Ma - Fully Assessed Reason for Visit: Returning Patient's Call [408] Prescriptions as of 12/07/2023 - Losartan-Hydrochlorot hiazide 100-12.5 mg per tablet Take 1 tablet by mouth once daily. - metoprolol succinate XL, long acting, (TOPROL XL) 100 mg Tb24 Take 100 mg by mouth. - allopurinol 300 mg tablet Take 300 mg by mouth once daily. 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 Telephone (MRIQ) JOCELYN HUSSEIN ([id number]) 1955 M Date Time Provider Department 12/07/23 AMNA ESCALERA MRIQ During your visit today, we recorded the following information about you: Amna Escalera RN 12/07/2023 3:53 PM Signed Radiology Service Pre Anesthesia Telephone Call PATIENT NAME: Jocelny Hussein DATE OF CALL: December 07, 2023 TIME: 3:50 PM PATIENT TYPE: Pt returned call. Pt reports that he will not be able to be scanned with anxiolysis. Pt is extremely claustrophobic and would need anesthesia . Pt advised to notify ordering PCP about this. SIGNED BY: Amna Escalera RN December 07, 2023 3:50 PM Allergies As of Date: 12/07/2023 (No Known Allergies) Date Reviewed: 01/17/2012 Reviewed by: Mallory Patel Ma - Fully Assessed Reason for Visit: Appointment [186] Cmt: Anxiolysis Education Prescriptions as of 12/07/2023 - Losartan-Hydrochlorot hiazide 100-12.5 mg per tablet Take 1 tablet by mouth once daily. - metoprolol succinate XL, long acting, (TOPROL XL) 100 mg Tb24 Take 100 mg by mouth. - allopurinol 300 mg tablet Take 300 mg by mouth once daily. 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 Glucose of more than 200 mg/dL in a nonstressed, ambulatory subject supports the diagnosis of Diabetes Mellitus. Result Comment: [place] Glucose Reference Range is dependent on time and content of last meal. Glucose of more than 200 mg/dL in a nonstressed, ambulatory subject supports the diagnosis of Diabetes Mellitus. Performed By: #### G LULS #### Point of Care testing , Glucose Poct Glucometerson 0 11-04-2023 Glucose [Mass/Vol] 131 mg/dL Normal [facility] Comment on above: Result Comment: [facility] Glucose Reference Range is dependent on time and content of last meal. Glucose of more than 200 mg/dL in a nonstressed, ambulatory subject supports the diagnosis of Diabetes Mellitus. PERFORMED BY: [facility] [address] [place] [address] PATHOLOGIST DICER OPERATOR JEVON DAILEY M.D. Performed By: #### G LULS #### Point of Care testing , Commemt1 Glu2: Cleaned Meter Normal [facility] Comment on above: Result Comment: PERF ORMED BY: [facility] [address] [place] [address] PATHOLOGIST DICER OPERATOR JEVON DAILEY M.D. Performed By: #### G LULS #### Point of Care testing , Jose 11-04-2023 L Specimen: [id number] Received: 11/04/23 Status: CUATE Goins Num: [id number] Spec Type: Surgical Subm Dr: Hugo Power DO Tissues: A Skin-Other than Cyst, tag, debridement or plastic repair (NOSE) Procedures: HE/10, Gross/Micro L4 Age/ Patient Sex Location Account Attending Physician Jocelyn Hussein 68/M [place] [id number] Hugo Power DO SPEC NUM: [id number] RECD: 11/04/23 STATUS: CUATE GOINS NUM: [id number] ESHA: 11/04/23- SUBM DR: Hugo Power DO ENTERED: 11/04/[address] [facility] DR: SPEC TYPE: Surgical DEPT: S ENTERED BY: [id number] RECV BY: [id number] ORDERED: HE/10, Gross/Micro L4 ORDERED: HE/10, Gross/Micro L4 Pathological Diagnosis Skin lesion, nose, wide excision: No evidence of Residual melanoma. Clinical Information Melanoma in situ nose, wide excision melanoma long suture 3:00, short stitch 6:00, loop 9:00 Gross Description The specimen is received in formalin with the patient's name and wide excision melanoma nose is a oriented tanner-pink ellipse of skin measuring 1.8 cm from 12:00 to 6:00, 1.3 cm from 9:00 to 3:00, and excised to a depth of 0.3 cm. The specimen is oriented with a long suture 3:00 anterior, short stitch 6:00 inferior, loop 9:00 lateral per requisition. The specimen is inked 12:00 to 3:00 blue, 3:00 to 6:00 orange, 6:00 to 9:00 green, 9:00 to 12:00 red, and the deep is inked black. The skin surface is unremarkable. The specimen is serially sectioned from the 12:00 tip to the 6:00 tip into 6 sections. The specimen is entirely and sequentially submitted from the 12:00 to the 6:00 in cassettes A1-A3. A1 12:00 tip quadrisected A2 mid sections A3 6:00 trisected -------- Specimen: [id number] Received: 11/04/23 Status: CUATE Goins Num: [id number] Spec Type: Surgical Subm Dr: Hugo Power DO Tissues: A Skin-Other than Cyst, tag, debridement or plastic repair (NOSE) Procedures: /Daphne Sagastume/Gail L4 -------- Patient: Jocelyn Hussein [id number] (Formerly [facility]) -------- Specimen: [id number] Received: 11/04/23 (Continued) Signed (signature on file) Ramandeep Coto MD 11/10/23 1824 -------- Specimen: [id number] Received: 11/04/23 Status: CUATE Goins Num: [id number] Spec Type: Surgical Subm Dr: Hugo Power DO Tissues: A Skin-Other than Cyst, tag, debridement or plastic repair (NOSE) Procedures: /Daphne/Gail L4 -------- Patient: Jocelyn Hussein [id number] (Continued) -------- Specimen: [id number] Received: 11/04/23 (Continued) CPT Codes 75476 -------- -------- Specimen: [id number] Received: 11/04/23 Status: CUATE Melissa Num: [id number] Spec Type: Surgical Subm Dr: Hugo Power DO Tissues: A Skin-Other than Cyst, tag, debridement or plastic repair (NOSE) Procedures: Daphne ROBERTS/Gail L4 -------- Patient: Jocelyn Hussein [id number] (Continued) -------- Signed (signature on file) Ramandeep Coto MD 11/10/23 3764 Normal [facility] No Panel InformationOrdered By: Hugo Power on 11-04-2023 Bedside Glucose Comment Glu2: cleaned meter [facility] Automated basophil %Ordered By: Hugo Power on 11-01-2023 Basophils/100 WBC (Bld) 0.8 % Normal . [facility] Comment on above: Performed By: #### B MP, CBC #### [address] Automated basophil countOrde red By: Hugo Power on 11-01-2023 Basophils (Bld) [#/Vol] 0.0 10*3/uL Normal 0.0-0.2 [facility] Comment on above: Result Comment: PERF ORMED BY: [place] [address] PATHOLOGIST DICER OPERATOR JEVON DAILEY M.D. Performed By: #### B MP, CBC #### [address] Automated blood monocyte cou ntOrdered By: Hugo Power on 11-01-2023 Monocytes (Bld) [#/Vol] 0.7 10*3/uL Normal 0.0-0.8 [facility] Comment on above: Performed By: #### B MP, CBC #### [address] Automated eosinophil %Ordere d By: Hugo Power on 11-01-2023 Eosinophils/100 WBC (Bld) 7.5 % Normal . [facility] Comment on above: Performed By: #### B MP, CBC #### [address] Automated eosinophil countOr dered By: Hugo Power on 11-01-2023 Eosinophils (Bld) [#/Vol] 0.5 10*3/uL High 0.0-0.45 [facility] Comment on above: Performed By: #### B MP, CBC #### [address] Automated monocyte %Ordered By: Hugo Power on 11-01-2023 Monocytes/100 WBC (Bld) 10.5 % Normal . [facility] Comment on above: Performed By: #### B MP, CBC #### [facility] [address] Automated neutrophil %Ordere d By: Hugo Power on 11-01-2023 Neutrophils/100 WBC (Bld) 56.2 % Normal . [facility] Comment on above: Performed By: #### B MP, CBC #### [facility] [address] [place] [address] [place] Basic Metabolic Panelon 10-22 GFR/1.73 sq M.predicted MDRD (S/P/Bld) [Vol rate/Area] mL/min/{1.73_m2} Normal [facility] Comment on above: Performed By: #### B MP, CBC #### [address] Calcium [Mass/volume] in Ser um or PlasmaOrdered By: Hugo Power on 11-01-2023 Calcium [Mass/Vol] 9.1 mg/dL Normal 8.6-10.3 [facility] Comment on above: Result Comment: PERF ORMED BY: [place] [address] PATHOLOGIST DICER OPERATOR JEVON DAILEY M.D. Performed By: #### B MP, CBC #### [address] Carbon dioxide, total [Moles /volume] in Serum or PlasmaOrdered By: Hugo Power on 11-01-2023 CO2 [Moles/Vol] 24.3 mmol/L Normal 21.0-31.0 [facility] Comment on above: Performed By: #### B MP, CBC #### [place] [address] [place] Chloride [Moles/volume] in S charles or PlasmaOrdered By: Hugo Power on 11-01-2023 Chloride [Moles/Vol] 104 mmol/L Normal 98-107 [facility] Comment on above: Performed By: #### B MP, CBC #### [place] [id number] [place] Complete Blood Count Auto Di ffon 11-01-2023 Mean Corpuscular HGB Conc 34.0 g/dL Normal 32.5-35.6 [facility] Comment on above: Performed By: #### B MP, CBC #### [facility] [address] NRBC% 0.1 /100{WBC} Normal 0-0.5 [facility] Comment on above: Performed By: #### B MP, CBC #### [facility] [address] [place] [address] Creatinine [Mass/volume] in Serum or PlasmaOrdered By: Hugo Power on 11-01-2023 Creatinine [Mass/Vol] 1.15 mg/dL Normal 0.70-1.30 [facility] Comment on above: Performed By: #### B MP, CBC #### [address] ECG 12 lead ECGon 11-01-2023 ECG 12 lead ECG [facility] [place] [address] [place] [address] Electrocardiograph Report Signed Patient: Jocelyn Hussein MR#: [id number] : 1955 Acct:[id number] Age/Sex: 68 / M ADM Date: 11/01/23 Loc: Room: Type: [facility] Attending Dr: Hugo Power DO Ordering Provider: Hugo Power DO Date of Service: 11/01/2312/14/709 ECG/ECG 12 lead ECG: for surgery 11/04/23 Copies to: Test Reason : Blood Pressure : */* mmHG Vent. Rate : 68 BPM Atrial Rate : 68 BPM P-R Int : 222 ms QRS Dur : 144 ms QT Int : 416 ms P-R-T Axes : 19 -57 2 degrees QTcB Int : 442 ms Sinus rhythm with 1st degree AV block Right bundle branch block Left anterior fascicular block Bifascicular block Poor R-wave progression Abnormal ECG No previous ECGs available Confirmed by Kari Campuzano ([id number]) on 11/02/2023 12:04:39 PM Referred By: Electronically Signed By: Kari Campuzano Transcribed By: MUS Signed By Kari Campuzano DO 4 1204 Normal [facility] Erythrocyte distribution wid th [Ratio] by Automated countOrdered By: Hugo Power on 11-01-2023 Erythrocyte distribution width (RBC) [Ratio] 13.0 % Normal 12.0-14.8 [facility] Comment on above: Performed By: #### B MP, CBC #### [facility] [address] Erythrocytes [#/volume] in B lood by Automated countOrdered By: Hugo Power on 11-01-2023 RBC (Bld) [#/Vol] 3.88 10*6/uL Low 3.90-5.60 [facility] Comment on above: Performed By: #### B MP, CBC #### [facility] [address] [place] [address] [place] Glucose [Mass/volume] in Ser um or PlasmaOrdered By: Hugo Power on 11-01-2023 Glucose [Mass/Vol] 117 mg/dL High 70-100 [facility] Comment on above: ADA recommended refe rence rangeRandom Glucose Reference Range is dependent on time and content of last meal. Glucose of more than 200 mg/dL in a nonstressed, ambulatory subject supports the diagnosis of Diabetes Mellitus. Result Comment: [place] om Glucose Reference Range is dependent on time and content of last meal. Glucose of more than 200 mg/dL in a nonstressed, ambulatory subject supports the diagnosis of Diabetes Mellitus. ADA recommended reference range Performed By: #### B MP, CBC #### [facility] [address] [place] [id number] [place] Hematocrit [Volume Fraction] of Blood by Automated countOrdered By: Hugo Power on 11-01-2023 Hematocrit (Bld) [Volume fraction] 36.1 % Low 38.8-50.0 [facility] Comment on above: Performed By: #### B MP, CBC #### [facility] [address] [place] [id number] [place] Hemoglobin [Mass/volume] in BloodOrdered By: Hugo Power on 11-01-2023 Hemoglobin (Bld) [Mass/Vol] 12.3 g/dL Low 13.0-17.0 [facility] Comment on above: Performed By: #### B MP, CBC #### [address] Leukocytes [#/volume] correc odalis for nucleated erythrocytes in Blood by Automated counOrdered By: Hugo Power on 11-01-2023 WBC corrected for nucl RBC Auto (Bld) [#/Vol] 6.4 10*3/uL 4.1-10.5 [facility] Leukocytes [#/volume] in Blo od by Automated countOrdered By: Hugo Power on 11-01-2023 WBC (Bld) [#/Vol] 6.4 10*3/uL Normal 4.1-10.5 [facility] Comment on above: Performed By: #### B MP, CBC #### [address] Lymphocytes [#/volume] in Bl ood by Automated countOrdered By: Hugo Power on 11-01-2023 Lymphocytes (Bld) [#/Vol] 1.6 10*3/uL Normal 1.00-4.8 [facility] Comment on above: Performed By: #### B MP, CBC #### [address] Lymphocytes/100 leukocytes i n Blood by Automated countOrdered By: Hugo Power on 11-01-2023 Lymphocytes/100 WBC (Bld) 25.0 % Normal . [facility] Comment on above: Performed By: #### B MP, CBC #### [place] [address] [place] MCH [Entitic mass] by Automa odalis countOrdered By: Hugo Power on 11-01-2023 MCH (RBC) [Entitic mass] 31.6 pg Normal 27.5-35.2 [facility] Comment on above: Performed By: #### B MP, CBC #### [address] MCHC Auto (RBC) [Mass/Vol]Or dered By: Hugo Power on 11-01-2023 MCHC (RBC) [Mass/Vol] 34.0 g/dL 32.5-35.6 [facility] MCV [Entitic volume] by Auto mated countOrdered By: Hugo Power on 11-01-2023 MCV (RBC) [Entitic vol] 93.0 fL Normal 83.5-101 [facility] Comment on above: Performed By: #### B MP, CBC #### [facility] [address] [place] [address] Neutrophils [#/volume] in Bl ood by Automated countOrdered By: Hugo Power on 11-01-2023 Neutrophils (Bld) [#/Vol] 3.6 10*3/uL Normal 1.8-7.7 [facility] Comment on above: Performed By: #### B MP, CBC #### [facility] [address] [place] [address] No Panel InformationOrdered By: Hugo Power on 11-01-2023 Estimated GFR (CKD-EPI) > 60.0 mL/Min [facility] Creatinine Clearance (Chem N/A [facility] Nucleated erythrocytes [Pres ence] in Blood by Automated countOrdered By: Hugo Power on 11-01-2023 Nucleated RBC Auto Ql (Bld) 0.1 /100{WBC} 0-0.5 [facility] Platelet mean volume [Entiti c volume] in Blood by Automated countOrdered By: Hugo Power on 11-01-2023 Platelet mean volume (Bld) [Entitic vol] 6.6 fL Normal 6.6-10.1 [facility] Comment on above: Performed By: #### B MP, CBC #### [facility] [address] [place] [address] Platelets [#/volume] in Bloo d by Automated countOrdered By: Hugo Power on 11-01-2023 Platelets (Bld) [#/Vol] 205 10*3/uL Normal 150-450 [facility] Comment on above: Performed By: #### B MP, CBC #### [address] Potassium [Moles/volume] in Serum or PlasmaOrdered By: Hugo Power on 11-01-2023 Potassium [Moles/Vol] 4.2 mmol/L Normal 3.5-5.1 [facility] Comment on above: Hemolysis is present at a level that could interfere with the result.Contact lab if redraw is required Result Comment: Hemo lysis is present at a level that could interfere with the result. Contact lab if redraw is required Performed By: #### B MP, CBC #### [address] Serum or plasma anion gap de terminationOrdered By: Hugo Power on 11-01-2023 Anion gap [Moles/Vol] 12.9 mmol/L Normal 6.0-15.0 [facility] Comment on above: Performed By: #### B TAMAR, CBC #### [address] Sodium [Moles/volume] in Ser um or PlasmaOrdered By: Hugo Power on 11-01-2023 Sodium [Moles/Vol] 137 mmol/L Normal 136-145 [facility] Comment on above: Performed By: #### B TAMAR, CBC #### [address] Urea nitrogen [Mass/volume] in Serum or PlasmaOrdered By: Hugo Power on 11-01-2023 Urea nitrogen [Mass/Vol] 27 mg/dL High 7-25 [facility] Comment on above: Performed By: #### B MP, CBC #### [address] C Urineon 10-14-2023 Bacteria identified Cx Nom (U) Microbiology PROCEDURE: Urine Culture [R1] SOURCE: U CleanCatch BODY SITE: COLLECTED DATE/TIME: 10/12/2023 11:18 EDT RECEIVED DATE/TIME: 10/12/2023 19:24 EDT START DATE/TIME: 10/12/2023 19:24 EDT FREE TEXT SOURCE: Ashly HENDRICKS, Shivani Limon MD, Shivani Mullen FINAL REPORTS Final Report [] Verified Date/Time: 10/14/2023 10:05 EDT 2,000 cfu/ml Mixed skin contaminants Performing Locations R1: This test was performed at: [facility], [address] [place] [address], [id number] , [place], [facility] Comment on above: Performed By: #### 2 [id number] #### [facility] [address] [place] [id number] URINALYSISOrdered By: Sy Cadena on 10-12-2023 Bilirubin Ql (U) Negative Normal Negativemg/dL [facility] UA Auto SS Clarity (U) Clear (10/12/23 11:18 AM) Normal Clear [facility] UA Auto SS Color (U) Light-Yellow 1 (10/12/23 11:18 AM) Normal Yellow [facility] UA Auto SS Comment on above: Interpretive Data: M icroscopic readings are only performed on those samples that meet specific criteria set forth by [facility]. Glucose Ql (U) 3+ mg/dL Invalid Interpretation Code Negativemg/dL [facility] UA Auto SS Hemoglobin Auto test strip (U) [Mass/Vol] Negative (10/12/23 11:18 AM) Normal Negative [facility] UA Auto SS Ketones Auto test strip Ql (U) Negative Normal Negativemg/dL [facility] UA Auto SS Leukocyte esterase Auto test strip Ql (U) Negative (10/12/23 11:18 AM) Normal Negative [facility] UA Auto SS Nitrite Auto test strip Ql (U) Negative Normal Negativemg/dL [facility] UA Auto SS pH (U) 5.0 *NA* (10/12/23 11:18 AM) Invalid Interpretation Code 5.0 - 9.0 [facility] UA Auto SS Protein Ql (U) Trace mg/dL Invalid Interpretation Code Negativemg/dL [facility] UA Auto SS Specific gravity (U) [Rel density] 1.025 *NA* (10/12/23 11:18 AM) Invalid Interpretation Code 1.005 - 1.030 [facility] UA Auto SS Urobilinogen (U) [Mass/Vol] Negative Normal Negativemg/dL [facility] UA Auto SS URINALYSISOrdered By: Amber Ngo on 10-12-2023 UA Spec Desc Clean Catch (10/12/23 11:18 AM) Normal [facility] UA Auto SS Urinalysis with Microon 09-22 Bilirubin Ql (U) Negative Normal Negative [facility] Comment on above: Performed By: #### 4 [id number] #### [facility] [address] [place] [address] Clarity (U) Clear Normal Clear [facility] Comment on above: Performed By: #### 4 [id number] #### [facility] [address] [place] [address] Color (U) Light-Yellow Normal Yellow [facility] Comment on above: Result Comment: Micr oscopic readings are only performed on those samples that meet specific criteria set forth by [facility]. Performed By: #### 4 [id number] #### [facility] [address] [place] [address] Glucose Ql (U) 3+ mg/dL Abnormal Negative [facility] Comment on above: Performed By: #### 4 [id number] #### [facility] [address] [place] [address] Hemoglobin Auto test strip (U) [Mass/Vol] Negative Normal Negative [facility] Comment on above: Performed By: #### 4 [id number] #### [facility] [address] [place] [address] Ketones Auto test strip Ql (U) Negative Normal Negative [facility] Comment on above: Performed By: #### 4 [id number] #### [facility] [address] [place] [address] Leukocyte esterase Auto test strip Ql (U) Negative Normal Negative [facility] Comment on above: Performed By: #### 4 [id number] #### [facility] [address] [place] [address] Nitrite Auto test strip Ql (U) Negative Normal Negative [facility] Comment on above: Performed By: #### 4 [id number] #### [facility] [address] [place] [address] pH (U) 5.0 [pH] Invalid Interpretation Code 5.0-9.[address] [facility] Comment on above: Performed By: #### 4 [id number] #### [facility] [address] [place] [address] Protein Ql (U) Trace Abnormal Negative [facility] Comment on above: Performed By: #### 4 [id number] #### [facility] [address] [place] [address] Specific gravity (U) [Rel density] 1.025 Invalid Interpretation Code 1.005-1.[address] [facility] Comment on above: Performed By: #### [id number] #### [facility] [address] [place] [address] Urobilinogen (U) [Mass/Vol] Negative Normal Negative [facility] Comment on above: Performed By: #### [id number] #### [facility] [address] [place] [address] Type of Urine collection method Clean Catch Normal [facility] Comment on above: Performed By: #### 4 [id number] #### [facility] [address] [place] [address] Ambulatory Visit Summaryon 0 10-11-2023 Ambulatory Visit Summary Ambulatory Visit Summary JOCELYN HUSSEIN :1955 Visit Date:10/11/2023 Ambulatory Visit Instructions Your Diagnosis Type 2 diabetes mellitus with hyperlipidemia HTN (hypertension) Benign hypertension with CKD (chronic kidney disease) stage III Decubitus ulcer of buttock, stage 1 Right hip pain Right groin pain BMI 34.0-34.9,adult Class 1 obesity due to excess calories in adult Nonsmoker Tests Performed MRI Hip w/o Contrast Left -- Results Pending -- MRI Hip w/o Contrast Right -- Results Pending -- MRI Spine Lumbar w/o Contrast -- Results Pending -- Please visit your patient portal for your results or contact your primary care physician. Your Care Team Attending Physician - Ashly HENDRICKSShivani Primary Care Physician - Shivani Limon MD This Is Your Medications List allopurinol (allopurinol 300 mg Tab) atorvastatin (atorvastatin 10 mg Tab) hydrochlorothiazide-l osartan (hydrochlorothiazide- losartan 12.5 mg-100 mg oral tablet) levothyroxine (levothyroxine 75 mcg (0.075 mg) Tab) meloxicam (meloxicam 15 mg Tab) metformin (Glucophage XR 500 mg Tab-ER) metformin (Glucophage XR 500 mg Tab-ER) metoprolol (metoprolol 100 mg ER Tab) oxycodone (oxyCODONE 5 mg Cap) Procedures Performed Cataract extraction, Cystoscopy, Lithotripsy, Tonsillectomy. What to do next Scheduled Follow-Up Appointments Tuesday 11:00 AM EDT With: Where: [address] [id number]- Tuesday 8:00 AM EST With: Where: [address] [id number]- Tuesday 8:45 AM EST With: Shivani Limon MD Where: [address] [address]- Medications What How Much When Why Instructions Unchanged allopurinol (allopurinol 300 mg Tab) See instructions TAKE 1 TABLET BY MOUTH EVERY DAY Unchanged atorvastatin (atorvastatin 10 mg Tab) See instructions TAKE 1 TABLET BY MOUTH EVERY DAY Unchanged hydrochlorothiazide-l osartan (hydrochlorothiazide- losartan 12.5 mg-100 mg oral tablet) 1 Tablets By Mouth Every day Unchanged levothyroxine (levothyroxine 75 mcg (0.075 mg) Tab) See instructions TAKE 1 TABLET BY MOUTH EVERY DAY Unchanged meloxicam (meloxicam 15 mg Tab) 1 Tablets By Mouth Every day Back pain with right-sided sciatica Right hip pain Right groin pain Non-smoker BMI 35.0-35.9,adult Unchanged metformin (Glucophage XR 500 mg Tab-ER) 2 Tablets By Mouth 2 times a day Unchanged metformin (Glucophage XR 500 mg Tab-ER) 2 Tablets By Mouth 2 times a day Unchanged metoprolol (metoprolol 100 mg ER Tab) 1 Tablets By Mouth Every day Unchanged oxycodone (oxyCODONE 5 mg Cap) 1 Capsules By Mouth Every 6 hours as needed for for pain Allergies lisinopril (Unknown) Problems Ongoing - Any problem that you are currently receiving treatment for. Asthma Back pain with right-sided sciatica Gray's palsy Benign hypertension with CKD (chronic kidney disease) stage III Bilateral hip pain Decubitus ulcer of buttock, stage 1 Diabetic nephropathy Gout Hearing loss History of nephrolithiasis HTN (hypertension) Hyperlipidemia Left knee pain AVELINA (obstructive sleep apnea) Right groin pain Right hip pain Stage 3a chronic kidney disease (CKD) Subclinical hypothyroidism Type 2 diabetes mellitus with hyperlipidemia Patient Survey You may receive a survey via text or e-mail asking about your office visit. Please share your experience with us by completing your survey. We appreciate your feedback and thank you for choosing us for your care. Normal [facility] Family Medicine Office/Clini c Noteon 10-11-2023 Family Medicine Office/Clinic Note Family Medicine Office/Clinic Note HPI Staff Jocelyn is a 68 year old male presenting for 3 month follow up HTN, DM, CKD Patient is here for follow up on hypertension. How often are you checking your blood pressure? Doesnt check BP at home What are your average readings? N/A, Not checking at home Yearly BMP: 06/23/23 Do you have any of the following symptoms? Foot Exam: Eye Exam: Last A1C: Hgb A1C %: 10 % High (06/23/23 08:52:00) Statin: atorvastatin 10mg needs his meloxicam refiled History of Present Illness Pt here for follow up. Pain is stable. NO improvement. Review of Systems PHQ Score Initial Depression Screen Score: 1 SCORE Physical Exam Vitals & Measurements T: 36.7 ?C(Temporal Artery) HR: 64(Peripheral) RR: 16 BP: 136/84 SpO2: 97% HT: 67 in HT: 170.3 cm WT: 104.8 kg WT: 230.56 lb BMI: 36.14 General: alert, no acute distress ENMT: oral [...] diabetes mellitus with other specified complication) - Not controlled. - A1c monitoring. - Will adjust meds - Follow up PRN Ordered: dulaglutide, 0.75 mg, SubCutaneous, qWeek, # 12 EA, Refills(s) 0, Pharmacy: [facility] #[id number], 170.3, cm, 10/11/23 15:26:00 EDT, Height/Length Dosing, 104.8, kg, 10/11/23 15:26:00 EDT, Weight Dosing Body Mass Index (BMI) documented 3008F Current tobacco non-user 1036F Depression Screening Negative 3352F Influenza immunization administered or previously received 4274F Most recent diastolic blood pressure 80-89 mm Hg 3079F MRI Hip w/o Contrast Left MRI Hip w/o Contrast Right MRI Spine Lumbar w/o Contrast Patient screen for fall risk: no falls in last year or 1 fall with no injury in last year 1101F Systolic BP 130-139 mm Hg (Most Recent) 3075F 2. HTN (hypertension) (I10: Essential (primary) hypertension) - Not at goal 2/2 pain Ordered: dulaglutide, 0.75 mg, SubCutaneous, qWeek, # 12 EA, Refills(s) 0, Pharmacy: [facility][id number], 170.3, cm, 10/11/23 15:26:00 EDT, Height/Length Dosing, 104.8, kg, 10/11/23 15:26:00 EDT, Weight Dosing Body Mass Index (BMI) documented 3008F Current tobacco non-user 1036F Depression Screening Negative 3352F Influenza immunization administered or previously received 4274F Most recent diastolic blood pressure 80-89 mm Hg 3079F MRI Hip w/o Contrast Left MRI Hip w/o Contrast Right MRI Spine Lumbar w/o Contrast Patient screen for fall risk: no falls in last year or 1 fall with no injury in last year 1101F Systolic BP 130-139 mm Hg (Most Recent) 3075F 3. Benign hypertension with CKD (chronic kidney disease) stage III (I12.9: Hypertensive chronic kidney disease with stage 1 through stage 4 chronic kidney disease, or unspecified chronic kidney disease) - As above Ordered: dulaglutide, 0.75 mg, SubCutaneous, qWeek, # 12 EA, Refills(s) 0, Pharmacy: [id number], 170.3, cm, 10/11/23 15:26:00 EDT, Height/Length Dosing, 104.8, kg, 10/11/23 15:26:00 EDT, Weight Dosing Body Mass Index (BMI) documented 3008F Current tobacco non-user 1036F Depression Screening Negative 3352F Influenza immunization administered or previously received 4274F Most recent diastolic blood pressure 80-89 mm Hg 3079F MRI Hip w/o Contrast Left MRI Hip w/o Contrast Right MRI Spine Lumbar w/o Contrast Patient screen for fall risk: no falls in last year or 1 fall with no injury in last year 1101F Systolic BP 130-139 mm Hg (Most Recent) 3075F 4. Decubitus ulcer of buttock, stage 1 (L89.301: Pressure ulcer of unspecified buttock, stage 1) - Improving - Continue barrier protection Ordered: dulaglutide, 0.75 mg, SubCutaneous, qWeek, # 12 EA, Refills(s) 0, Pharmacy: [id number], 170.3, cm, 10/11/23 15:26:00 EDT, Height/Length Dosing, 104.8, kg, 10/11/23 15:26:00 EDT, Weight Dosing Body Mass Index (BMI) documented 3008F Current tobacco non-user 1036F Depression Screening Negative 3352F Influenza immunization administered or previously received 4274F Most recent diastolic blood pressure 80-89 mm Hg 3079F MRI Hip w/o Contrast Left MRI Hip w/o Contrast Right MRI Spine Lumbar w/o Contrast Patient screen for fall risk: no falls in last year or 1 fall with no injury in last year 1101F Systolic BP 130-139 mm Hg (Most Recent) 3075F 5. Right hip pain (M25.551: Pain in right hip) - Will order the MRI Ordered: dulaglutide, 0.75 mg, SubCutaneous, qWeek, # 12 EA, Refills(s) 0, Pharmacy: [id number], 170.3, cm, 10/11/23 15:26:00 EDT, Height/Length Dosing, 104.8, kg, 10/11/23 15:26:00 EDT, Weight Dosing Body Mass Index (BMI) documented 3008F Current (more content not included)... Normal [facility] Comment on above: Result Comment: Elec tronically Signed By: Shivani Limon MD\.br\Date and Time Signed: 10/11/23 15:33 EDT Pre-Visit Planningon 024 Pre-Visit Planning Pre-Visit Planning From: Modesta Mahmood To: Shivani Limon MD; Sent: 10/10/2023 10:36:27 EDT Subject: Pre-Visit Planning Due Date/Time: 10/10/2023 10:36:00 EDT Caller Name: JOCELYN HUSSEIN; Caller Number: Bisi , Marlee Id Dr. Limon. During a pre-visit planning chart review, I noted the following documentation in the medical record: 09/12/2023 [facility] ED Note (page 1 and page 5): HPI- Patient has been sitting in a chair for the past 2 to 3 weeks secondary to cannot lay flat secondary to pain. Patient is having some mild pain and irritation to the top of his buttocks. Patient has stage 1 ulceration to bilateral inner buttock crease to the top third of his buttocks. Patient also has a small area of stage 2 ulceration to the top of his gluteal cleft. Patient may have fungal infection to the inner buttock cheeks as well compared to possible stage 1 ulceration from chronic sitting in the chair. Based on your medical judgment, can you please clarify which, if any, of the following conditions/complicati ons are present? I can update the Chronic Problem List with your response if you would like. -Decubitus ulcer of buttock, stage 1 -Decubitus ulcer of buttock, stage 2 -Other (please specify): -Will determine during Office Visit In responding to this request, please exercise your independent professional judgment. The fact that a question is asked does not imply that any particular answer is desired or expected. If you have any questions, please feel free to contact me at extension [phone]. Thank you! Modesta Mahmood LPN Clinical Preprint Analyst [address] [address] Extension: [phone] [email or web address] From: Shivani Limon MD To: Modesta Mahmood; Sent: 10/10/2023 10:49:37 EDT Subject: RE: Pre-Visit Planning Caller Name: JOCELYN HUSSEIN; Caller Number: Bisi , M Decubitus ulcer of buttock, stage [address] [facility] Ambulatory Visit Summaryon 0 09-06-2023 Ambulatory Visit Summary Ambulatory Visit Summary JOCELYN HUSSEIN :1955 Visit Date:09/06/2023 Ambulatory Visit Instructions Your Diagnosis Bilateral hip pain Right groin pain BMI 34.0-34.9,adult Class 1 obesity due to excess calories in adult Nonsmoker Tests Performed US Scrotum (Contents) -- Results Pending -- XR Hip 2-3 Views Left -- Results Pending -- XR Hip 2-3 Views Right -- Results Pending -- Please visit your patient portal for your results or contact your primary care physician. Your Care Team Attending Physician - Shivani Limon MD Primary Care Physician - Shivani Limon MD This Is Your Medications List methylPREDNISolone (Medrol 4 mg Tab) oxycodone (oxyCODONE 5 mg Cap) Contact prescribing physician if questions or concerns allopurinol (allopurinol 300 mg Tab) atorvastatin (atorvastatin 10 mg Tab) hydrochlorothiazide-l osartan (hydrochlorothiazide- losartan 12.5 mg-100 mg oral tablet) levothyroxine (levothyroxine 75 mcg (0.075 mg) Tab) meloxicam (meloxicam 15 mg Tab) metformin (Glucophage XR 500 mg Tab-ER) metoprolol (metoprolol 100 mg ER Tab) mupirocin topical (mupirocin Top 2% Oint) Procedures Performed Cataract extraction, Cystoscopy, Lithotripsy, Tonsillectomy. Discharge Vitals Temperature (Temporal Artery) 36.5 ?C Heart Rate (Peripheral) 92 Respiratory Rate 18 Blood Pressure 160/82 Height 170.3 cm Height 67 in Weight 101.3 kg Weight 222.86 lb BMI 34.93 What to do next Scheduled Follow-Up Appointments 2023 10:30 AM EDT With: Shivani Limon MD Where: [facility] Invalid Interpretation Code [address] [place] [address]- \.br\ Tuesday 8:45 AM EST \.br\ With: Shivani Limon MD\.br\ Where: [facility] Medicine Office/Clini c Noteon 09-06-2023 Family Medicine Office/Clinic Note Family Medicine Office/Clinic Note HPI Staff Jocelyn is a 68 year old male presenting for acute visit Acute: left hip pain Saw Jennie 09/01 given steroids and antiinflammatories now it's moved to the left side of back and lower groin, lots pain can't lie down, can't walk, can't sit down Onset: August 25 Location: started right side and now moved to left hip and lower groin Characteristics:_8 Aggravated by: he doesn't know Relieved by: nothing but taking ibuprofen a lot of it but it's not enough History of Present Illness Patient in for follow-up on right hip pain. Hip pain has improved on the right. Now worsened on the left. Patient still has scrotal pain on the right. Patient has a history of this in the past. Unsure the cause. Physical Exam Vitals & Measurements T: 36.5 ?C(Temporal Artery) HR: 92(Peripheral) RR: 18 BP: 160/82 SpO2: 96% HT: 67 in HT: 170.3 cm WT: 101.3 kg WT: 222.86 lb BMI: 34.93 General: alert, no acute distress ENMT: oral mucosa moist, Cardiovascular: regular rate and rhythm, normal peripheral perfusion Respiratory: Lungs CTA, respirations non labored Extremities: no deformity, no trauma, patient has a severe antalgic gait. Patient cannot do a logroll of either hip secondary to pain. Patient has pain to palpation of the right testicle. Pain in the hip is worse today in the left than the right. This is different from his last visit. Neurological: oriented x 4, LOC appropriate for age, CN II-XII intact, motor strength equal & normal bilaterally, speech normal Abdomen: Soft, Nontender, Non-distended, + BS Assessment/Plan Total time spent preparing for the encounter, evaluating and assessing the patient, documenting the visit, and ordering appropriate follow-up work was 40 minutes. 1. Bilateral hip pain (M25.551: Pain in right hip) At this time unsure of the cause of the bilateral hip pain. Likely secondary to arthritis that is acute in nature. We will do a ultrasound of bilateral hips. Will do oxycodone 5Q6 for 7 days. Will do Tylenol 1000 mg every 6, meloxicam, and a Medrol Dosepak. Ordered: US Scrotum (Contents) XR Hip 2-3 Views Left XR Hip 2-3 Views Right 2. Right groin pain (R10.31: Right lower quadrant pain) Unsure the cause at this time. Will do a stat ultrasound. Will do a UA and culture. Ordered: US Scrotum (Contents) XR Hip 2-3 Views Left XR Hip 2-3 Views Right 3. BMI 34.0-34.9,adult (Z68.34: Body mass index [BMI] 34.0-34.9, adult) BMI education uploaded to the chart. Ordered: US Scrotum (Contents) XR Hip 2-3 Views Left XR Hip 2-3 Views Right 4. Class 1 obesity due to excess calories in adult (E66.09: Other obesity due to excess calories) Diet and exercise advised. Ordered: US Scrotum (Contents) XR Hip 2-3 Views Left XR Hip 2-3 Views Right 5. Nonsmoker (Z78.9: Other specified health status) Please continue not to smoke. Ordered: US Scrotum (Contents) XR Hip 2-3 Views Left XR Hip 2-3 Views Right Orders: methylPREDNISolone, = 1 packet(s), Oral, As Directed, as directed on package labeling, X 6 day(s), # 21 tab(s), Refills(s) 0, Pharmacy: [facility]/pharmacy #[id number], 170.3, cm, 09/06/23 7:42:00 EDT, Height/Length Dosing, 101.3, kg, 09/06/23 7:42:00 EDT, Weight Dosing oxycodone, 5 mg = 1 cap(s), Oral, q6hr, PRN for pain, # 28 cap(s), Refills(s) 0, Pharmacy: [facility]/pharmacy #[id number], 170.3, cm, 09/06/23 7:42:00 EDT, Height/Length Dosing, 101.3, kg, 09/06/23 7:42:00 EDT, Weight Dosing Follow-up No qualifying data available Patient Education BMI for Adults BMI for Adults Problem List/Past Medical History Ongoing Asthma Back pain with right-sided sciatica Gray's palsy Bilateral hip pain Class 3 obesity Diabetic nephropathy Gout Hearing loss History of nephrolithiasis HTN (hypertension) Hyperlipidemia Left knee pain AVELINA (obstructive sleep apnea) Prostate disorder Right groin pain Right hip pain Sciatica Screening PSA (prostate specific antigen) Skin [...] tablet, 1 tab(s), Oral, Daily, 5 refills levothyroxine 75 mcg (0.075 mg) Tab, See Instructions Medrol 4 mg Tab, 1 packet(s), Oral, As Directed meloxicam 15 mg Tab, 15 mg= 1 tab(s), Oral, Daily metoprolol 100 mg ER Tab, 100 mg= 1 tab(s), Oral, Daily, 3 refills mupirocin Top 2% Oint, 1 janell, Topical, TID, 1 refills oxyCODONE 5 mg Cap, 5 mg= 1 cap(s), Oral, q6hr, PRN Allergies lisinopril (Unknown) Social History Alcohol - Denies Alcohol Use, 12/23/2021 Substance Abuse - Denies Substance Abuse, 12/23/2021 Tobacco (more content not included)... Normal [facility] Comment on above: Result Comment: Elec tronically Signed By: Ashly HENDRICKS, Shivani Power.br\Date and Time Signed: 09/06/23 08:07 EDT Family Medicine Office/Clini c Noteon 09-02-2023 Family Medicine Office/Clinic Note Family Medicine Office/Clinic Note HPI Staff Jocelyn is a 68 year old male presenting for pain Pain characteristics: Pain location: right flank back pain radiating down right leg into right groin and sometimes the left Intensity:7/10 Onset: 5 days ago Medication used: ibuprofen 600mg Pt states was going yard work. He states his back pain isn't to bad but on Tuesday intermittent bilateral groin pain with walking throbbing. History of Present Illness pt c/o low back, right hip and right groin pain. was on riding mower bent sideways spraying weeds for 4 hours Review of Systems PHQ Score Initial Depression Screen Score: 0 SCORE Physical Exam Vitals & Measurements HR: 88(Peripheral) RR: 18 BP: 156/92 SpO2: 98% HT: 67 in HT: 170.3 cm WT: 104.3 kg WT: 229.46 lb BMI: 35.96 General: alert, no acute distress ENMT: oral mucosa moist, no pharyngeal erythema or exudate Cardiovascular: regular rate and rhythm, normal peripheral perfusion Respiratory: Lungs CTA, respirations non labored Extremities: no deformity, no trauma Neurological: oriented x 4, LOC appropriate for age, CN II-XII intact, motor strength equal & normal bilaterally, speech normal Assessment/Plan 1. Back pain with right-sided sciatica (M54.31: Sciatica, right side) x ray for lumbar spine ordered. meloxicam and medrol dose pack ordered. if no improvement will call office. encouraged rest and heat to the areas as well 2. Right hip pain (M25.551: Pain in right hip) x ray for right hip provided 3. Right groin pain (R10.31: Right lower quadrant pain) right groin painful 4. Non-smoker (Z78.9: Other specified health status) continue not smoking 5. BMI 35.0-35.9,adult (Z68.35: Body mass index [BMI] 35.0-35.9, adult) BMI education given Follow-up No qualifying data available Problem List/Past Medical History Ongoing Asthma Back pain with right-sided sciatica Gray's palsy Class 3 obesity Diabetic nephropathy Gout Hearing loss History of nephrolithiasis HTN (hypertension) Hyperlipidemia Left knee pain AVELINA (obstructive sleep apnea) Prostate disorder Right groin pain Right hip pain Sciatica Screening PSA (prostate specific antigen) Skin [...] tablet, 1 tab(s), Oral, Daily, 5 refills levothyroxine 75 mcg (0.075 mg) Tab, See Instructions Medrol 4 mg Tab, 1 packet(s), Oral, As Directed meloxicam 15 mg Tab, 15 mg= 1 tab(s), Oral, Daily metoprolol 100 mg ER Tab, 100 mg= 1 tab(s), Oral, Daily, 3 refills mupirocin Top 2% Oint, 1 janell, Topical, TID, 1 refills Allergies lisinopril (Unknown) Social History Alcohol - Denies Alcohol Use, 12/23/2021 Substance Abuse - Denies Substance Abuse, 12/23/2021 Tobacco - Denies Tobacco Use, 12/23/2021 Never (less than 100 in lifetime) Tobacco Use:. Never Smokeless Tobacco Use:. Household tobacco concerns: No., 08/31/2023 Family History Cardiac arrest: Brother. Diabetes mellitus type 2: Mother and Brother. Heart disease: Father. Immunizations Vaccine Date Status Comments influenza virus vaccine, inactivated 11/30/2022 Given SARS-CoV-2 (COVID-19) [id number] 02/01/2022 Recorded influenza virus vaccine, inactivated 01/07/2022 Recorded influenza virus vaccine, inactivated 01/09/2021 Recorded SARS-CoV-2 (COVID-19) mRNA BNT-162b2 vax 12/16/2020 Recorded 2022-05-28: [id number] SARS-CoV-2 (COVID-19) mRNA BNT-162b2 vax 04/25/2020 Recorded 2022-05-28: TPV65 SARS-CoV-2 (COVID-19) mRNA BNT-162b2 vax 04/04/2020 Recorded 2022-05-28: TPV65 pneumococcal 13-valent vaccine 12/21/2019 Recorded influenza virus vaccine, inactivated 12/21/2019 Recorded Normal [facility] Comment on above: Result Comment: Elec tronically Signed By: Jennie Garza.br\Date and Time Signed: 09/02/23 07:55 EDT Surgical pathology studyon 0 08-22-2023 Surgical pathology study Pathology report.total SEE COMMENT Dermatopathology Report Case: [id number] Authorizing Provider: Jayy Garcia MD PhD Collected: 08/22/2023 0938 Ordering Location: [facility] Received: 08/22/[address] [place] [address] Pathologist: Nabeel Mckoy MD Specimen: OUTSIDE BLOCK(S)/SLIDE(S), 2 SLIDES, [facility], #[id number] (BX: 07/20/23) Path report.final diagnosis SEE COMMENT 2 SLIDES, [facility], #[id number] (BX: 07/20/23) SKIN, RIGHT NOSE, SHAVE BIOPSY: [...] Tumor block is [facility] original case # [id number] Path report.relevant Hx Shave Tangential/Neoplasm of unspecified behavior of bone, soft tissue, and skin. Solar lentigo vs Lentigo maligna. 1.0 x 1.0 cm hyperpigmented patch. Path report.gross observation SEE COMMENT A. OUTSIDE BLOCK(S)/SLIDE(S). Received for consultation from [facility] are two slides labeled [id number] (Bx: 07/20/23) along with the corresponding pathology report. Path report.microscopic observation The Hematoxylin and Eosin stained sections of the trisected shave specimen reveals poorly nested atypical junctional melanocytes along the dermal-epidermal junction with confluence and pagetoid scatter. There is significant dermal solar elastosis. 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 The received deeper additional step sections were additionally reviewed. [facility]ulatory Comment on above: Order Comment: Mater ials Received: 2 SLIDES, [facility], #[id number] (BX: 07/20/23) Consultation Noteon 07-25-19 Consultation Note [id number] .00TIFF [facility] Consultation Noteon 07-21-19 Consultation Note [id number]. 00TIFF [facility] Ambulatory Visit Summaryon 0 06-30-2023 Ambulatory Visit Summary OJCELYN HUSSEIN :1955 Visit Date:06/30/2023 Ambulatory Visit Instructions Your [...] AM EDT With: Shivani Limon MD Where: [facility] Invalid Interpretation Code [address] [place] [address]- \.br\ Tuesday 8:45 AM EST \.br\ With: Shivani Limon MD\.br\ Where: [facility] Office/Clini c Noteon 06-30-2023 Family Medicine Office/Clinic Note HPI Staff Jocelyn [...] qAM, # 90 tab(s), Refills(s) 1, Pharmacy: [facility]/pharmacy #[id number], 170.3, cm, 06/30/23 8:40:00 EDT, Height/Length Dosing, 111.6, kg, 06/30/23 8:40:00 EDT, Weight Dosing metformin, 1,000 mg = 2 tab(s), Oral, BID, # 390 tab(s), Refills(s) 0, Pharmacy: [facility]/pharmacy #[id number], 170.3, cm, 06/30/23 8:40:00 EDT, Height/Length [...] virus vaccine, inactivated 11/30/2022 Given SARS-CoV-2 (COVID-19) [id number] 02/01/2022 Recorded influenza virus vaccine, inactivated 01/07/2022 Recorded influenza virus vaccine, inactivated 01/09/2021 Recorded SARS-CoV-2 (COVID-19) mRNA BNT-162b2 vax 12/16/2020 Recorded 2022-05-28: TPV65 SARS-CoV-2 (COVID-19) mRNA BNT-162b2 vax 04/25/2020 Recorded 2022-05-28: TPV65 SARS-CoV-2 (COVID-19) mRNA BNT-162b2 vax 04/04/2020 Recorded 2022-05-28: TPV65 pneumococcal 13-valent vaccine 12/21/2019 Recorded influenza virus vaccine, inactivated 12/21/2019 Recorded Normal [facility] Comment on above: Result Comment: Elec tronically Signed By: Ashly HENDRICKS, Shivnai Power.br\Date and Time Signed: 06/30/23 09:25 EDT Patient Educationon 06-30-19 24 Patient Education Nutrition BMI for Adults What [...] numbers. This can be done either in Indian (U.S.) or metric measurements. Note that charts and online BMI calculators are available to help you find your BMI quickly and easily without having to do these calculations yourself. To calculate your BMI in Indian (U.S.) measurements: 1. Measure your weight in [...] for Disease Control and Prevention: www.cdc.gov ? [place] [employer]: www.heart.org ? National Heart, Lung, and Blood [place]: www.nhlbi.nih.gov Summary ? Body mass index (BMI) is a number that is calculated from a person's weight and height. ? BMI may help estimate how much of a person's weight is composed of fat. BMI can help identify those who may be at higher risk for certain medical problems. ? BMI can be measured using Indian measurements or metric measurements. ? BMI charts are used to identify whether you are underweight, normal weight, overweight, or obese. This information is not intended to replace advice given to you by your health care provider. Make sure you discuss any questions you have with your health care provider. Document Revised: 10/31/2019 Document Reviewed: 09/07/2019 [employer] Patient Education ? 2022 [employer] Normal [facility] Ambulatory Visit Summaryon 0 06-23-2023 Ambulatory Visit Summary JOCELYN HUSSEIN :1955 Visit Date:06/23/2023 Ambulatory Visit Instructions Your [...] Appointments Tuesday 8:00 AM EST With: Where: [facility] Invalid Interpretation Code [address] [place] [address]- \.br\ Someone Will Contact You Regarding These Appointments\.b r\ [facility] [place] Ambulatory Referral, Orthopaedics, Dr. Marmolejo, 06/23/23 8:25:00 EDT, Type 2 diabetes mellitus with hyperlipidemia [facility] Ambulatory Visit Summary JOVITA JOCELYN Cory :1955 Visit Date:06/23/2023 Ambulatory Visit Instructions Your [...] Appointments Tuesday 8:00 AM EST With: Where: [facility] Invalid Interpretation Code [address] [place] [address]- \.br\ Someone Will Contact You Regarding These Appointments\.b r\ [facility] [place] Ambulatory Referral, Orthopaedics, Dr. Marmolejo, 06/23/23 8:25:00 EDT, Type 2 diabetes mellitus with hyperlipidemia [facility] CBC w/ Auto Diffon 4 Basophils/100 WBC (Bld) 0.9 % Normal 0.0-2.[address] [facility] Comment on above: Performed By: #### 2 006971, 05661851, 068749060, 5089067, 51685924, 2631206, 8969859 #### [facility] Laboratory [address] [place] [address] Basophils/Leukocytes Auto (Bld) [Pure # fraction] 0.1 E9/L Normal 0.0-0.[address] [facility] Comment on above: Performed By: #### 2 793471, 30494799, 924216548, 4545190, 13804446, 4260575, 7282270 #### [facility] [address] [place] [address] Eosinophils (Bld) [#/Vol] 0.6 E9/L High 0.0-0.[address] [facility] Comment on above: Performed By: #### 2 544549, 15074777, 786589997, 0685314, 80191063, 6321276, 8566524 #### [facility] [address] [place] [address] Eosinophils/100 WBC (Bld) 7.7 % Normal 0.0-8.[address] [facility] Comment on above: Performed By: #### 2 728537, 40970703, 486034688, 0337855, 86719008, 2175369, 5084615 #### [facility] [address] [place] [address] Erythrocyte distribution width (RBC) [Ratio] 13.9 % Normal 10.9-14.[address] [facility] Comment on above: Performed By: #### 2 934942, 25830424, 461154348, 9417150, 08799724, 2849094, 8673457 #### [facility] [address] [place] [address] Hematocrit (Bld) [Volume fraction] 42.0 % Normal 37.7-49.[address] [facility] Comment on above: Performed By: #### 2 612003, 82916057, 265852197, 1335292, 90854240, 0915621, 2431325 #### [facility] [address] [place] [address] Hemoglobin (Bld) [Mass/Vol] 13.9 g/dL Normal 13.5-17.[address] [facility] Comment on above: Performed By: #### 2 043455, 70586597, 430420633, 4827185, 23417055, 0850302, 1853865 #### [facility] [address] [place] [address] Lymphocytes (Bld) [#/Vol] 1.7 E9/L Normal 1.0-4.[address] [facility] Comment on above: Performed By: #### 2 838765, 90543313, 886479945, 6684845, 14482847, 6755007, 8227648 #### [facility] [address] [place] [address] Lymphocytes/100 WBC (Bld) 23.9 % Normal 14.0-50.[address] [facility] Comment on above: Performed By: #### 2 561369, 08951064, 565956980, 1041812, 00937835, 6492752, 7016946 #### [facility] [address] [place] [address]6875 MCH (RBC) [Entitic mass] 30.8 pg Normal 27.0-34.[address] [facility] Comment on above: Performed By: #### 2 975003, 57089946, 223922876, 4364513, 03038143, 0667991, 2108224 #### [facility] [address] [place] [address] MCHC (RBC) [Mass/Vol] 33.1 g/dL Normal 31.4-36.0 [facility] Comment on above: Performed By: #### 2 942048, 67214039, 723610798, 7471389, 43810215, 6769508, 3709732 #### [facility] [address] [place], [place] [address] MCV (RBC) [Entitic vol] 93.0 fL Normal 80.0-100.[address] [facility] Comment on above: Performed By: #### 2 851544, 87442605, 652199541, 2773601, 64169005, 9478654, 2460881 #### [facility] [address] [place] [address] Monocytes (Bld) [#/Vol] 0.8 E9/L Normal 0.2-1.[address] [facility] Comment on above: Performed By: #### 2 464635, 50672746, 422503645, 7000792, 12444897, 9281571, 6667574 #### [facility] [address] [place] [address] Neutrophils (Bld) [#/Vol] 4.1 E9/L Normal 2.0-7.[address] [facility] Comment on above: Performed By: #### 2 376380, 20280773, 517513780, 0145191, 68890678, 7924273, 9889720 #### [facility] [address] [place] [address] Neutrophils/100 WBC (Bld) 56.6 % Normal 36.0-75.[address] [facility] Comment on above: Performed By: #### 2 496781, 79138103, 258856316, 4696349, 55693243, 9039523, 2828414 #### [facility] [address] [place] [address] Platelet mean volume (Bld) [Entitic vol] 8.6 fL Normal 6.4-10.[address] [facility] Comment on above: Performed By: #### 2 000823, 93874898, 516732119, 0973726, 79168354, 1373542, 9367303 #### [facility] [address] [place] [address] Platelets (Bld) [#/Vol] 193.0 E9/L Normal 150.0-500.[address] [facility] Comment on above: Performed By: #### 2 187683, 92150800, 115932060, 6349592, 73570499, 4813284, 0375603 #### [facility] [address] [place] [address] RBC (Bld) [#/Vol] 4.5 E12/L Normal 4.3-5.[address] [facility] Comment on above: Performed By: #### 2 315561, 57337230, 736271911, 5833360, 25224788, 0281117, 3410090 #### [facility] [address] [place] [address] WBC corrected for nucl RBC Auto (Bld) [#/Vol] 7.3 E9/L Normal 4.0-11.[address] [facility] Comment on above: Performed By: #### 2 650767, 82404936, 319160249, 7358557, 35375275, 2872513, 5014441 #### [facility] [address] [place] [address] CHEMISTRYOrdered By: SYSTEM SYSTEM on 06-23-2023 Albumin [...] 15 mmol/L Normal 6 - 16 mEq/L R emisol Chem AST [Catalytic activity/Vol] 17 [iU]/d Normal 5 - 43 Int._Unit/L Remisol Chem Bilirubin [Mass/Vol] 0.7 mg/dL Normal 0.0 - 1.1 mg/dL [facility] Calcium [Mass/Vol] 9.7 mg/dL Normal 8.9 - 11. 1 mg/dL [facility] Chloride [Moles/Vol] 104 mmol/L Normal 101 - 1 11 mmol/L [facility] Cholesterol [Mass/Vol] 171 mg/dL Normal 120 - 200 mg/ dL [facility] Cholesterol in HDL [Mass/Vol] 32 mg/dL Invalid Interpretation Code [facility] Comment on above: Result Comment: '>= 60 LOW RISK' '<= 40 HIGH RISK' Cholesterol in LDL [Mass/Vol] 73 mg/dL Normal <=129mg/dL [facility] CO2 [Moles/Vol] 23 mmol/L Normal 21 - 31 mmol/L Remis ol Chem Creatinine [Mass/Vol] 1.4 mg/dL High 0.5 - 1.3 mg/d L Rem[facility] Chem eGFR 54 mL/min/1.73 m2 Low [...] used for this result was chemiluminescence using [employer] Access [employer] PSA reagent. Protein [Mass/Vol] 7.4 [...] (Bld) [Mass fraction] 10.0 % High <=5.9% [facility] ChemAutoSS CMPon 06-23-2023 Albumin [Mass/Vol] 4.3 g/dL Normal 3.3-5.[address] [facility] Comment on above: Performed By: #### 2 412525, 45179749, 185581491, 1667351, 11696575, 8915545, 9341513 #### [facility] [address] [place] [address] Albumin/Globulin (S) [Mass conc ratio] 1.4 Normal 1.1-2.[address] [facility] Comment on above: Performed By: #### 2 173472, 84141790, 218831278, 4530799, 75758340, 0600803, 1826715 #### [facility] [address] [place] [address] ALP [Catalytic activity/Vol] 97 Int._Unit/L Normal 21-[address] [facility] Comment on above: Performed By: #### 2 921255, 59536380, 756991647, 5805043, 36668230, 3187130, 9006934 #### [facility] [address] [place] [address]3882 ALT No additional P-5'-P [Catalytic activity/Vol] 17 Int._Unit/L Normal 6-[address] [facility] Comment on above: Performed By: #### 2 034541, 43969108, 521410671, 7253287, 48697522, 6974427, 3327099 #### [facility] [address] [place] [address] 62597 AST [Catalytic activity/Vol] 17 Int._Unit/L Normal 5-[address] [facility] Comment on above: Performed By: #### 2 180617, 62790863, 738514707, 0489432, 51637789, 0980502, 5057802 #### [facility] [address] [place] [address] Bilirubin [Mass/Vol] 0.7 mg/dL Normal 0.0-1.[address] [facility] Comment on above: Performed By: #### 2 634820, 35915475, 669764295, 6015296, 91760123, 0127977, 5259043 #### [facility] [address] [place] [address] Globulin (S) [Mass/Vol] 3.1 g/dL Normal 1.4-4.[address] [facility] Comment on above: Performed By: #### 2 990817, 46190469, 132035090, 6526350, 09633712, 0338897, 9854030 #### [facility] [address] [place] [address] Protein [Mass/Vol] 7.4 g/dL Normal 6.0-7.[address] [facility] Comment on above: Performed By: #### 2 632710, 08065085, 845407474, 9294233, 59016499, 0712976, 8285679 #### [facility] [address] [place] [address] Anion gap [Moles/Vol] 15 mmol/L Normal 6-16 [facility] Comment on above: Performed By: #### 2 847246, 81092995, 344505499, 0755447, 35561737, 0950548, 8440229 #### [facility] [address] [place] [address] Calcium [Mass/Vol] 9.7 mg/dL Normal 8.9-11.[address] [facility] Comment on above: Performed By: #### 2 924176, 39277426, 431602014, 7058098, 25999028, 3741999, 3852498 #### [facility] [address] [place] [address] Chloride [Moles/Vol] 104 mmol/L Normal 101-[address] [facility] Comment on above: Performed By: #### 2 874574, 95616743, 446393135, 2667410, 85341373, 2578602, 2551203 #### [facility] [address] [place] [address] CO2 [Moles/Vol] 23 mmol/L Normal 21-[address] [facility] Comment on above: Performed By: #### 2 270677, 54264397, 113976620, 5282542, 20463081, 3693263, 5851663 #### [facility] [address] [place] [address] Creatinine [Mass/Vol] 1.4 mg/dL High 0.5-1.3 [facility] Comment on above: Performed By: #### 2 710173, 24691033, 533597610, 7904696, 64427990, 3634578, 6941958 #### [facility] [address] [place] [address] Glucose [Mass/Vol] 217 mg/dL High 55-[address] [facility] Comment on above: Performed By: #### 2 796466, 73877155, 278719642, 0151071, 03466816, 9490766, 7643469 #### [facility] [address] [place] [address] Potassium [Moles/Vol] 4.7 mmol/L Normal 3.5-5.3 [facility] Comment on above: Performed By: #### 2 988334, 28046569, 813072459, 8103527, 08588017, 0432175, 2103897 #### [facility] [address] [place] [address] Sodium [Moles/Vol] 137 mmol/L Normal 135-[address] [facility] Comment on above: Performed By: #### 2 300212, 50832883, 688478225, 9623930, 02083744, 3292224, 5680573 #### [facility] [address] [place] [address] Urea nitrogen [Mass/Vol] 33 mg/dL High 5-[address] [facility] Comment on above: Performed By: #### 2 920977, 97095440, 603048923, 4185285, 11379380, 3255019, 0440863 #### [facility] [address] [place] [address] Urea nitrogen/Creatinine [Mass ratio] 24 No Units High 10-[address] [facility] Comment on above: Performed By: #### 2 412453, 49544862, 682473116, 0202416, 13615367, 0688934, 3752823 #### [facility] [address] [place] [address] Family Medicine Office/Clini c Noteon 06-23-2023 Family Medicine [...] E&M of Est. Patient Moderate 30-39 Min 16771 [facility] [place] Ambulatory Referral [facility] [place] Ambulatory Referral HgbA1c Influenza immunization administered [...] E&M of Est. Patient Moderate 30-39 Min 70004 [facility] [place] Ambulatory Referral [facility] [place] Ambulatory Referral Uric Acid 3. Stage 3a chronic kidney disease (CKD) (N18.31: Chronic kidney disease, stage 3a) - Will recheck today Ordered: Body Mass Index (BMI) documented 3008F CBC w/ Auto Diff Complex E&M Add on G2211 Comprehensive Metabolic Panel Current tobacco non-user 1036F Depression Screening Negative 3352F E&M of Est. Patient Moderate 30-39 Min 93496 [facility] [place] Ambulatory Referral [facility] [place] Ambulatory Referral HgbA1c Influenza immunization administered [...] E&M of Est. Patient Moderate 30-39 Min 01674 [facility] [place] Ambulatory Referral [facility] [place] Ambulatory Referral HgbA1c Influenza immunization administered [...] E&M of Est. Patient Moderate 30-39 Min 60405 [facility] [place] Ambulatory Referral [facility] [place] Ambulatory Referral HgbA1c Influenza immunization administered or previously received 4274F Lipid Panel Microalbumin Level Urine Most recent diastolic blood pressure 80-89 mm Hg 3079F Patient s (more content not included)... Normal [facility] Comment on above: Result Comment: Elec tronically Signed By: Ashly HENDRICKS, Shivani Mullen\.br\Date and Time Signed: 06/23/23 08:34 EDT HEMATOLOGYOrdered [...] Normal 4.0 - 11.0 E9/L Remisol Heme [id number] 06-23-2023 HbA1c (Bld) [Mass fraction] 10.0 % High <=5.[address] [facility] Comment on above: Performed By: #### 2 341702, 27017691, 762705360, 6960559, 01816651, 8522805, 3657274 #### [facility] [address] [place] [address] Lipid Panelon 06-23-2023 VLDL UT Abnormal 7-[address] [facility] Comment on above: Result Comment: 'ELLI BLE TO REPORT. TRIG > 400 mg/dl' Result verified by Discern Rule. Performed result UT (Unable to Calculate) was sent as an Alpha code due the inability to calculate a valid numeric value. Performed By: #### 2 597165, 71250136, 618760788, 8199508, 64919065, 4139663, 4210508 #### [facility] [address] [place] [address] Cholesterol [Mass/Vol] 171 mg/dL Normal 120-200 [facility] Comment on above: Performed By: #### 2 317549, 95084405, 171875740, 9180868, 12382373, 5919601, 7093631 #### [facility] [address] [place] [address] Cholesterol in HDL [Mass/Vol] 32 mg/dL Invalid Interpretation Code [facility] Comment on above: Result Comment: '>= 60 LOW RISK' '<= 40 HIGH RISK' Performed By: #### 2 623321, 54304053, 416371423, 4895079, 76162308, 4275601, 3541553 #### [facility] [address] [place] [address] Cholesterol in LDL [Mass/Vol] 73 mg/dL Normal <=[address] [facility] Comment on above: Performed By: #### 2 362555, 39233250, 680407977, 0439013, 36122159, 2762375, 7894896 #### [facility] [address] [place] [address] Triglyceride [Mass/Vol] 431 mg/dL High <=[address] [facility] Comment on above: Performed By: #### 2 359118, 34919882, 670545153, 4308935, 93871087, 4298818, 0349095 #### [facility] [address] [place] [address] PSA Screen, Totalon 06-23-19 24 Prostate specific Ag [Mass/Vol] 3.5 ng/mL Normal 0.1-3.[address] [facility] Comment on above: Result Comment: The concentration of PSA determined by different manufacturers can vary due to differences in assay methods and reagent specificity. Values obtained from different assay methods cannot be used interchangeably. The methodology used for this result was chemiluminescence using [employer]'s Access Hy[employer] PSA reagent. Performed By: #### 2 024769, 09689394, 950129617, 3032868, 36880404, 5035742, 0377577 #### [facility] [address] [place] [address] Patient Educationon 06-23-19 24 Patient Education Nutrition BMI for Adults What [...] numbers. This can be done either in Indian ([place] or metric measurements. Note that charts and online BMI calculators are available to help you find your BMI quickly and easily without having to do these calculations yourself. To calculate your BMI in Indian ([place] measurements: 1. Measure your weight in [...] for Disease Control and Prevention: www.cdc.gov ? [place] [employer]: www.heart.org ? National Heart, Lung, and Blood [place]: www.nhlbi.nih.gov Summary ? Body mass index (BMI) is a number that is calculated from a person's weight and height. ? BMI may help estimate how much of a person's weight is composed of fat. BMI can help identify those who may be at higher risk for certain medical problems. ? BMI can be measured using Indian measurements or metric measurements. ? BMI charts are used to identify whether you are underweight, normal weight, overweight, or obese. This information is not intended to replace advice given to you by your health care provider. Make sure you discuss any questions you have with your health care provider. Document Revised: 10/31/2019 Document Reviewed: 09/07/2019 [employer] Patient Education ? 2022 [employer] Normal [facility] Physician Referralon 024 Physician Referral [id number]# 1.00TIFF Normal [facility] Physician Referral [id number]# 1.00TIFF Normal [facility] TSH With T4fr Reflexon 06-22 TSH Qn 2.61 m[IU]/L Normal 0.34-5.[address] [facility] Comment on above: Performed By: #### 2 277538, 69687305, 974691633, 5821629, 54957850, 3352229, 4522279 #### [facility] [address] [place] [address] U Microalbon 06-23-2023 Albumin DL <= 20 mg/L (U) [Mass/Vol] 15.0 mg/dL High 0.0-1.[address] [facility] Comment on above: Order Comment: Jasmine barbour office Performed By: #### 2 739589, 83523635, 790578781, 8921047, 08438443, 5519324, 3765713 #### [facility] [address] [place] [address] U Protein/Creat Ratioon Protein/Creatinine (U) [Ratio] 37.90 mg/gm Cr Normal .00-200.[address] [facility] Comment on above: Performed By: #### 2 085968, 41338318, 942855218, 7047184, 69100734, 0244894, 5936322 #### [facility] [address] [place] [address] U Creatinine 82.0 mg/dL Invalid Interpretation Code [facility] Comment on above: Performed By: #### 2 218106, 85109977, 686548661, 0940868, 45569097, 3447000, 9506764 #### [facility] [address] [place] [address] Ur Total Protein 31.1 mg/dL Invalid Interpretation Code [facility] Comment on above: Performed By: #### 2 622378, 60716875, 894136819, 4786391, 22690233, 4147074, 8009245 #### [facility] [address] [place] [address] Uric Acidon 06-23-2023 Urate (U) [Mass/Vol] 4.6 mg/dL Normal 2.2-7.[address] [facility] Comment on above: Performed By: #### 2 394906, 55157851, 210038428, 3244644, 57827249, 5574538, 6017839 #### [facility] [address] [place] [address] eGFRon 06-23-2023 eGFR 54 mL/min/1.73 m2 Low >=[address] [facility] Comment on above: Order Comment: Order added by Discern Expert. Performed By: #### 2 956284, 30785504, 428337218, 1352292, 71960799, 7913968, 3916195 #### [facility] [address] [place] [address] Lab Reportson 04-26-2023 Lab Reports [id number]#1 .00TIFF Normal [facility] Outside Diabetes Eye Examon 01-19-2023 Outside Diabetes Eye Exam [id number]#1. 00TIFF Normal [facility] ECG 12-Leadon 01-06-2023 ECG 12-Lead [id number]#1 .00TIFF Normal [facility] ED Note-Physicianon 01-07-20 ED Note-Physician [id number]# 1.00TIFF Normal [facility] Lab Reportson 01-06-2023 Lab Reports [id number]# 1.00TIFF Normal [facility] [id number]# 1.00TIFF Normal [facility] Ambulatory Visit Summaryon 1 03-05-2022 Ambulatory Visit Summary JOCELYN HUSSEIN :1955 Visit Date:01/03/2023 Ambulatory Visit Instructions Your [...] AM EDT With: Shivani Limon MD Where: [facility] Normal [address] [place] [address]- \.br\ Medications\.br \ What How Much When Instructions\.b r\ Unchanged allopurinol (allopurinol 300 mg Tab) See instructions TAKE 1 TABLET BY MOUTH EVERY DAY \.br\ Unchanged atorvastatin (atorvastatin 10 mg Tab) See instructions TAKE 1 TABLET BY MOUTH EVERY DAY \.br\ Unchanged canagliflozin (Invokana 100 mg oral tablet) 1 Tablets By Mouth Every day\.br\ Unchanged hydrochlorothia zide-losartan (hydrochlorothi azide-losartan 12.5 mg-100 mg oral tablet) 1 Tablets [...] palsy\.br\ Chest pain\.br\ Class 3 obesity\.br\ Diabetic nephropathy\.br \ Gout\.br\ Hearing loss\.br\ History of nephrolithiasis \.br\ HTN (hypertension)\ .br\ Hyperlipidemia\ .br\ AVELINA (obstructive sleep apnea)\.br\ Prostate disorder\.br\ Sciatica\.br\ Stage 3a chronic kidney disease (CKD)\.br\ Subclinical hypothyroidism\ .br\ Type 2 diabetes mellitus with hyperlipidemia\ .br\ Patient Survey\.br\ You may receive a survey via text or e-mail asking about your office visit. Please share your experience with us by completing your survey. We appreciate your feedback and thank you for choosing us for your care.\.br\ \.br\ [place] [facility] Family Medicine Office/Clini c Noteon 01-03-2023 Family [...] of clutter to prevent tripping and/or falling. [place] Advance Directives reviewed, pt will bring in [...] no concerns. Reviewed pain symptoms with patient: 0 Reviewed all outside providers that patient follows. [...] ie: cramping (more content not included)... Normal [facility] Comment on above: Result Comment: Elec tronically Signed By: Robert Sandhu DO\.br\Date and Time Signed: 01/03/23 12:46 EST\.br\Electronically Co-Signed By: Eren Montoya LPN\.br\Date and Time Co-Signed: 01/03/23 10:48 EST [place] 01-03-2023 Screens [id number] Normal [facility] Ambulatory Visit Summaryon 1 03-01-2022 Ambulatory Visit Summary JOCELYN HUSSEIN :1955 Visit Date:12/30/2022 Ambulatory Visit Instructions Your [...] Appointments Tuesday 8:30 AM EST With: Where: [facility] [place] Normal [address] [place], [place] [id number]- \.br\ Medications\.br \ What How Much When Instructions\.b r\ Unchanged allopurinol (allopurinol 300 mg Tab) See instructions TAKE 1 TABLET BY MOUTH EVERY DAY \.br\ Unchanged atorvastatin (atorvastatin 10 mg Tab) See instructions TAKE 1 TABLET BY MOUTH EVERY DAY \.br\ Unchanged canagliflozin (Invokana 100 mg oral tablet) 1 Tablets By Mouth Every day\.br\ Unchanged hydrochlorothia zide-losartan (hydrochlorothi azide-losartan 12.5 mg-100 mg oral tablet) 1 Tablets [...] Asthma\.br\ Gray's palsy\.br\ Class 3 obesity\.br\ Diabetic nephropathy\.br \ Gout\.br\ Hearing loss\.br\ History of nephrolithiasis \.br\ HTN (hypertension)\ .br\ Hyperlipidemia\ .br\ AVELINA (obstructive sleep apnea)\.br\ Prostate disorder\.br\ Sciatica\.br\ Stage 3a chronic kidney disease (CKD)\.br\ Subclinical hypothyroidism\ .br\ Type 2 diabetes mellitus with hyperlipidemia\ .br\ Patient Survey\.br\ You may receive a survey via text or e-mail asking about your office visit. Please share your experience with us by completing your survey. We appreciate your feedback and thank you for choosing us for your care.\.br\ \.br\ [facility] Office/Clini c Noteon 12-30-2022 Family Medicine Office/Clinic Note HPI Staff [...] DAY, # 30 tab(s), Refills(s) 0, Pharmacy: [facility]/pharmacy #[id number], 170.2, cm, 12/30/22 15:16:00 EST, Height/Length Dosing, 112.6, kg, 12/30/22 15:16:00 EST, Weight Dosing canagliflozin, 100 mg = 1 tab(s), Oral, Daily, # 30 tab(s), Refills(s) 0, Pharmacy: [facility]/pharmacy #[id number], 170.2, cm, 12/30/22 15:16:00 EST, Height/Length Dosing, 112.6, kg, 12/30/22 15:16:00 EST, Weight Dosing levothyroxine, See Instructions, TAKE 1 TABLET BY MOUTH EVERY DAY, # 90 tab(s), Refills(s) 0, Pharmacy: [facility]/pharmacy #[id number], 170.2, cm, 12/30/22 15:16:00 EST, Height/Length Dosing, 112.6, kg, 12/30/22 15:16:00 EST, Weight Dosing metformin, 500 mg = 1 tab(s), Oral, TID, # 270 tab(s), Refills(s) 1, [id number] 170.2, cm, 12/30/22 15:16:00 EST, Height/Length Dosing, 112.6, kg, 12/30/22 15:16:00 EST, Weight Dosing metoprolol, 100 mg = 1 tab(s), Oral, Daily, # 90 tab(s), Refills(s) 3, Pharmacy: [facility]/pharmacy #[id number], 170.2, cm, 12/30/22 15:16:00 EST, Height/Length Dosing, 112.6, kg, 12/30/22 15:16:00 EST, Weight Dosing Follow-up No qualifying data available Problem List/Past Medical History Ongoing (more content not included)... Normal [facility] Comment on above: Result Comment: Elec tronically Signed By: Ashly HENDRICKS, Shivani Mullen\.br\Date and Time Signed: 12/30/22 15:47 EST Family [...] send all meds 90 day supplies to [facility] please History of Present Illness Jocelyn Hussein is a 67-year-old male who presents today [...] with voice recognition artificial intelligence software, specifically [employer], [employer] and or [employer]. Substitutions may have occurred due to the inherent limitations of voice recognition and artificial intelligence software. Documentation services were performed after patient or guardian consented to allow [employer] to record this visit. TON affirmative action specialist and provider reviewed before signing. TON: Shirlene Branch Follow-up No qualifying data available We will see the patient back in 1 month for adjusting the medication. Problem List/Past Medical History Ongoing Asthma Gray's palsy Class 3 obesity Gout Hearing loss History of nephrolithiasis HTN (hypertension) Hyperlipidemia AVELINA (obstructive sleep apnea) Prostate disorder Sciatica Subclinical hypothyroidism Type 2 diabetes mellitus with hyperlipidemia Historical No qualifying data Procedure/Surgical History Cataract extraction, Cystoscopy, Lithotripsy, Tonsillectomy. Medications allopurinol 300 mg Tab, 300 mg= 1 tab(s), (more content not included)... Normal [facility] Comment on above: Result Comment: Elec tronically Signed By: Shivani Limon MD\.br\Date and Time Signed: 12/07/22 07:46 EDT\.br\Electronically Co-Signed By: Shirlene Branch\.br\Date and Time Co-Signed: 11/30/22 17:25 EDT CHEMISTRYOrdered By: Ro davidson on 12-01-2022 Albumin DL <= 20 mg/L (U) [Mass/Vol] 101.6 microgram/mL High 0.0 - 19.0 mcg/mL [facility] Remiso Albumin Elph (U) [Mass fraction] 19.4 mg/dL Invalid Interpretation Code [facility] Remisol Comment on above: Interpretive Data: T he reference range and other method performance specifications have not been established for this test; results should be integrated into the clinical context for interpretation. Creatinine (U) [Mass/Vol] 135.6 mg/dL Invalid Interpretation Code [facility] Remisol Comment on above: Interpretive Data: T he reference range and other method performance specifications have not been established for this test; results should be integrated into the clinical context for interpretation. U Prot/Creat Ratio 143.10 mg/gm Cr Normal 0.00 - 200.00 mg/gm Cr [facility] Remisol Consent for Flu Vaccineon Consent for Flu Vaccine [id number] .[id number] Normal [facility] U Microalbon 12-01-2022 Albumin DL <= 20 mg/L (U) [Mass/Vol] 101.6 microgram/mL High 0.0-19.[address] [facility] Comment on above: Performed By: #### 2 332194, 78085212, 704386371, 5797337, 08166034, 2371931, 8058562 #### [facility] [address] [place] [address] U Protein/Creat Ratioon 11-21 Albumin Elph (U) [Mass fraction] 19.4 mg/dL Invalid Interpretation Code [facility] Comment on above: Result Comment: The reference range and other method performance specifications have not been established for this test; results should be integrated into the clinical context for interpretation. Performed By: #### 2 413952, 78103955, 810486736, 2474478, 11951954, 5657589, 1743400 #### [facility] [address] [place] [address] Creatinine (U) [Mass/Vol] 135.6 mg/dL Invalid Interpretation Code [facility] Comment on above: Result Comment: The reference range and other method performance specifications have not been established for this test; results should be integrated into the clinical context for interpretation. Performed By: #### 2 125303, 98683451, 469453390, 6899538, 82601672, 0604750, 6653467 #### [facility] [address] [place] [address] U Prot/Creat Ratio 143.10 mg/gm Cr Normal .00-200.00 [facility] Comment on above: Performed By: #### 2 927195, 61536025, 695405250, 9769006, 67214929, 4190761, 4459395 #### [facility] [address] [place] [address] Ambulatory Visit Summaryon 1 Ambulatory Visit Summary JOCELYN HUSSEIN :1955 Visit Date:11/30/2022 Ambulatory Visit Instructions Your Diagnosis HTN (hypertension) Hyperlipidemia AVELINA (obstructive sleep apnea) Type 2 diabetes mellitus with hyperlipidemia Class 3 obesity Subclinical hypothyroidism Encounter for immunization BMI 39.0-39.9,adult Class 1 obesity due to excess calories in adult Gout Hearing loss Your Care Team Attending Physician - Ashly HENDRICKS, Shivani George. Primary Care Physician - SHANTA HENDRICKS, CASPER George This Is Your Medications List allopurinol [...] Appointments Tuesday 8:00 AM EDT With: Where: [place] [phone]- \.br\ Medications\.br \ What How Much When Instructions\.b r\ Unchanged allopurinol (allopurinol 300 mg Tab) 1 Tablets By Mouth Every day\.br\ Unchanged atorvastatin (atorvastatin 10 mg Tab) 1 Tablets By Mouth Every day\.br\ Unchanged canagliflozin (Invokana 100 mg oral tablet) 1 Tablets By Mouth Every day\.br\ Unchanged hydrochlorothia zide-losartan (hydrochlorothi azide-losartan 12.5 mg-100 mg oral tablet) 1 Tablets [...] 3 times a day\.br\ Medications and Immunizations Administered\.b r\ Given\.br\ influenza virus vaccine, inactivated HIGH DOSE preservative-fr ee quadrivalent intramuscular susp, 0.7 mL, IntraMuscular. For: BMI 39.0-39.9,adult \.br\ influenza virus vaccine, inactivated, IntraMuscular\. br\ Allergies\.br\ lisinopril (Unknown)\.br\ Problems\.br\ Ongoing - Any problem that you are currently receiving treatment for.\.br\ Asthma\.br\ Gray's palsy\.br\ Class 3 obesity\.br\ Gout\.br\ Hearing loss\.br\ History of nephrolithiasis \.br\ HTN (hypertension)\ .br\ Hyperlipidemia\ .br\ AVELINA (obstructive sleep apnea)\.br\ Prostate disorder\.br\ Sciatica\.br\ Subclinical hypothyroidism\ .br\ Type 2 diabetes mellitus with hyperlipidemia\ .br\ \.br\ [facility] Auto Diffon 11-30-2022 Basophils/100 WBC (Bld) 0.4 % Normal 0.0-2.[address] [facility] Comment on above: Order Comment: Order Added by Discern Expert. Performed By: #### 2 816585, 35734064, 917218677, 2353350, 39212647, 3809689, 8463586 #### [facility] [address] [place] [address] Basophils/Leukocytes Auto (Bld) [Pure # fraction] 0.0 E9/L Normal 0.0-0.[address] [facility] Comment on above: Order Comment: Order Added by Discern Expert. Performed By: #### 2 077792, 72476433, 316490627, 7309463, 02136885, 5639568, 2695545 #### [facility] [address] [place] [address] Eosinophils/100 WBC (Bld) 5.0 % Normal 0.0-8.[address] [facility] Comment on above: Order Comment: Order Added by Discern Expert. Performed By: #### 2 621410, 50959145, 466216179, 1380160, 26343809, 5339733, 3339324 #### [facility] [address] [place] [address] Eosinophils/Leukocytes Auto (Bld) [Pure # fraction] 0.4 E9/L Normal 0.0-0.[address] [facility] Comment on above: Order Comment: Order Added by Discern Expert. Performed By: #### 2 207792, 72441021, 808122147, 0863812, 21068726, 1067826, 1254113 #### [facility] [address] [place] [address] Lymphocytes/100 WBC (Bld) 22.4 % Normal 14.0-50.[address] [facility] Comment on above: Order Comment: Order Added by Discern Expert. Performed By: #### 2 871538, 23669460, 709544198, 7801958, 79036786, 5429131, 8116383 #### [facility] [address] [place] [address] Lymphocytes/Leukocytes Auto (Bld) [Pure # fraction] 1.9 E9/L Normal 1.0-4.[address] [facility] Comment on above: Order Comment: Order Added by Discern Expert. Performed By: #### 2 142713, 73271506, 049202749, 6606928, 34824470, 5960813, 2102158 #### [facility] [address] [place] [address] Monocytes/100 WBC (Bld) 9.0 % Normal 4.0-14.[address] [facility] Comment on above: Order Comment: Order Added by Akshat Expert. Performed By: #### 2 244809, 75747085, 805324612, 3900655, 24209634, 2937317, 3286738 #### [facility] [address] [place] [address] Monocytes/Leukocytes Auto (Bld) [Pure # fraction] 0.8 E9/L Normal 0.2-1.[address] [facility] Comment on above: Order Comment: Order Added by Discern Expert. Performed By: #### 2 648861, 90398550, 962468284, 7236967, 77560847, 5721083, 5172339 #### [facility] [address] [place] [address] Neutrophils/100 WBC (Bld) 63.2 % Normal 36.0-75.[address] [facility] Comment on above: Order Comment: Order Added by Discern Expert. Performed By: #### 2 823496, 49497361, 106923737, 5376392, 68186208, 1349248, 2541683 #### [facility] [address] [place] [address] Neutrophils/Leukocytes Auto (Bld) [Pure # fraction] 5.3 E9/L Normal 2.0-7.[address] [facility] Comment on above: Order Comment: Order Added by Discern Expert. Performed By: #### 2 516054, 16203877, 070636863, 7827601, 91035029, 7994384, 9389806 #### [facility] [address] [place] [address] CBC w/ Auto Diffon 202 3 Erythrocyte distribution width (RBC) [Ratio] 13.2 % Normal 10.9-14.[address] [facility] Comment on above: Performed By: #### 2 797566, 36867793, 441110482, 3509822, 71708836, 4197448, 6347812 #### [facility] [address] [place] [address] Hematocrit (Bld) [Volume fraction] 38.9 % Normal 37.7-49.[address] [facility] Comment on above: Performed By: #### 2 211657, 51014143, 055089543, 0756947, 56935574, 2574098, 6126794 #### [facility] [address] [place] [address] Hemoglobin (Bld) [Mass/Vol] 13.2 g/dL Low 13.5-17.[address] [facility] Comment on above: Performed By: #### 2 917059, 75182579, 716957794, 6433645, 29458145, 5108487, 4098065 #### [facility] [address] [place], [place] [address] MCH (RBC) [Entitic mass] 31.4 pg Normal 27.0-34.[address] [facility] Comment on above: Performed By: #### 2 688040, 89689410, 090358342, 4791550, 49067132, 1812413, 6823426 #### [facility] [address] [place], [place] [address] MCHC (RBC) [Mass/Vol] 34.0 g/dL Normal 31.4-36.0 [facility] Comment on above: Performed By: #### 2 703434, 41530894, 479085457, 6362964, 74129018, 7799245, 3552841 #### [facility] [address] [place], [place] [address] MCV (RBC) [Entitic vol] 92.5 fL Normal 80.0-100.[address] [facility] Comment on above: Performed By: #### 2 751808, 66619398, 919961855, 4911983, 68259109, 4823986, 9983158 #### [facility] [address] [place] [address] Platelet mean volume (Bld) [Entitic vol] 7.8 fL Normal 6.4-10.[address] [facility] Comment on above: Performed By: #### 2 963887, 14704964, 370905174, 3200260, 72061278, 4608598, 9760281 #### [facility] [address] [place] [address] Platelets (Bld) [#/Vol] 239.0 E9/L Normal 150.0-500.[address] [facility] Comment on above: Performed By: #### 2 636726, 51504502, 781471975, 3600603, 70781546, 3324512, 4451619 #### [facility] [address] [place] [address] RBC (Bld) [#/Vol] 4.2 E12/L Low 4.3-5.[address] [facility] Comment on above: Performed By: #### 2 137326, 93780412, 974110007, 6474069, 94512723, 8542573, 7942956 #### [facility] [address] [place] [address] WBC corrected for nucl RBC Auto (Bld) [#/Vol] 8.4 E9/L Normal 4.0-11.[address] [facility] Comment on above: Performed By: #### 2 985594, 05052156, 766111668, 1107843, 84380488, 8168107, 0134864 #### [facility] [address] [place] [address] CMPon 11-30-2022 Albumin [Mass/Vol] 4.3 g/dL Normal 3.3-5.[address] [facility] Comment on above: Performed By: #### 2 879997, 04402962, 179502546, 3279751, 11435138, 2706901, 4949043 #### [facility] [address] [place] [address] Albumin/Globulin (S) [Mass conc ratio] 1.2 Normal 1.1-2.[address] [facility] Comment on above: Performed By: #### 2 405225, 89495317, 926315895, 8133249, 80620173, 2926750, 6664350 #### [facility] [address] [place] [address] ALP [Catalytic activity/Vol] 74 Int._Unit/L Normal 21-[address] [facility] Comment on above: Performed By: #### 2 092078, 93657609, 030598813, 7477632, 83258566, 6733576, 5481321 #### [facility] [address] [place] [address] ALT No additional P-5'-P [Catalytic activity/Vol] 21 Int._Unit/L Normal 6-[address] [facility] Comment on above: Performed By: #### 2 048705, 46465583, 878324388, 1761961, 23489604, 9105626, 8755922 #### [facility] [address] [place] [address] Anion gap [Moles/Vol] 11 mmol/L Normal 6-16 [facility] Comment on above: Performed By: #### 2 382161, 03722876, 641808084, 1623762, 20102677, 3624200, 6160745 #### [facility] [address] [place] [address] AST [Catalytic activity/Vol] 21 Int._Unit/L Normal 5-[address] [facility] Comment on above: Performed By: #### 2 366455, 73132525, 575557456, 6098602, 52652741, 3042125, 4697565 #### [facility] [address] [place] [address] Bilirubin [Mass/Vol] 0.4 mg/dL Normal 0.0-1.[address] [facility] Comment on above: Performed By: #### 2 455871, 00742287, 176478096, 0695980, 16820013, 8427784, 0950325 #### [facility] [address] [place] [address] Calcium [Mass/Vol] 9.6 mg/dL Normal 8.9-11.[address] [facility] Comment on above: Performed By: #### 2 123804, 90877569, 203727090, 0850539, 69063213, 0319395, 9533143 #### [facility] [address] [place] [address] Chloride [Moles/Vol] 109 mmol/L Normal 101-[address] [facility] Comment on above: Performed By: #### 2 382361, 52572405, 280380774, 3264028, 31845557, 1936676, 9262183 #### [facility] [address] [place] [address] CO2 [Moles/Vol] 27 mmol/L Normal 21-[address] [facility] Comment on above: Performed By: #### 2 230330, 19218950, 475216953, 4369192, 32262273, 3188469, 1497959 #### [facility] [address] [place] [address] Creatinine [Mass/Vol] 1.4 mg/dL High 0.5-1.3 [facility] Comment on above: Performed By: #### 2 687072, 59131348, 493783667, 9352361, 15944423, 9589761, 5147963 #### [facility] [address] [place] [address] Globulin (S) [Mass/Vol] 3.5 g/dL Normal 1.4-4.[address] [facility] Comment on above: Performed By: #### 2 645341, 59238032, 355417503, 0296768, 29161999, 9601095, 8461410 #### [facility] [address] [place] [address] Glucose [Mass/Vol] 113 mg/dL Normal 55-[address] [facility] Comment on above: Result Comment: If t his glucose result represents a fasting glucose, interpretation should refer to the following reference range: 55-99 mg/dL Performed By: #### 2 647565, 43801536, 709298421, 0765829, 05943274, 4167844, 0631816 #### [facility] [address] [place] [address] Potassium [Moles/Vol] 4.9 mmol/L Normal 3.5-5.3 [facility] Comment on above: Performed By: #### 2 655926, 01528464, 702029867, 2779514, 97343289, 8929503, 0140814 #### [facility] [address] [place] [address] Protein [Mass/Vol] 7.8 g/dL Normal 6.0-7.[address] [facility] Comment on above: Performed By: #### 2 416689, 84842711, 842795175, 0313446, 54214371, 8793008, 6702513 #### [facility] [address] [place] [address] Sodium [Moles/Vol] 142 mmol/L Normal 135-[address] [facility] Comment on above: Performed By: #### 2 652443, 92223478, 114680013, 3771176, 34675392, 9471567, 5567355 #### [facility] [address] [place] [address] Urea nitrogen [Mass/Vol] 25 mg/dL High 5-[address] [facility] Comment on above: Performed By: #### 2 712093, 48284162, 614308181, 1568464, 45850626, 7782551, 6265261 #### [facility] [address] [place] [address] Urea nitrogen/Creatinine [Mass ratio] 18 No Units Normal 10-[address] [facility] Comment on above: Performed By: #### 2 684019, 63057432, 177175174, 1383344, 38069850, 1424901, 0071843 #### [facility] [address] [place] [address] OynR0ciz 11-30-2022 HbA1c (Bld) [Mass fraction] 6.8 % High <=5.[address] [facility] Comment on above: Performed By: #### 2 636233, 89550664, 399870154, 0309386, 75499438, 9024832, 2762018 #### [facility] [address] [place] [address] Lipid Panelon 11-30-2022 Cholesterol [Mass/Vol] 139 mg/dL Normal 120-200 [facility] Comment on above: Performed By: #### 2 019110, 61392826, 335398235, 4592212, 20058169, 5784529, 8182520 #### [facility] [address] [place] [address] Cholesterol in HDL [Mass/Vol] 41 mg/dL Invalid Interpretation Code [facility] Comment on above: Result Comment: HDL > or equal to 60 mg/dL: Low cardiovascular risk HDL < 40 mg/dL : High cardiovascular risk Performed By: #### 2 508425, 33200000, 644142061, 8382466, 98727431, 8982540, 9887793 #### [facility] [address] [place] [address] Cholesterol in LDL [Mass/Vol] 77 mg/dL Normal <=[address] [facility] Comment on above: Performed By: #### 2 718098, 31108432, 975190756, 4298274, 86565693, 6368914, 1919693 #### [facility] [address] [place] [address] Cholesterol in VLDL [Mass/Vol] 22 mg/dL Normal 7-[address] [facility] Comment on above: Performed By: #### 2 562073, 15459421, 216957724, 8269379, 10234447, 2196946, 1823020 #### [facility] [address] [place] [address] Triglyceride [Mass/Vol] 110 mg/dL Normal <=[address] [facility] Comment on above: Performed By: #### 2 758700, 22743765, 660575456, 3547609, 34461254, 1217266, 3855724 #### [facility] [address] [place] [address] TSH With T4fr Reflexon 11-30 TSH Qn 2.35 m[IU]/L Normal 0.34-5.[address] [facility] Comment on above: Performed By: #### 2 906098, 77203867, 973159768, 9684274, 84522278, 0898030, 0136945 #### [facility] [address] [place] [address] Uric Acidon 11-30-2022 Urate [Mass/Vol] 4.6 mg/dL Normal 2.2-7.[address] [facility] Comment on above: Performed By: #### 2 024014 #### [facility] [address] [place] [address] eGFRon 11-30-2022 GFR/1.73 sq M.predicted among non-blacks MDRD (S/P/Bld) [Vol rate/Area] 54 mL/min/1.73 m2 Low >=[address] [facility] Comment on above: Order Comment: Order added by Discern Expert. Result Comment: [employer]xtures Decorator trisha kidney disease could be indicated at eGFR's of less than 60 mL/min/1.73m2. Kidney failure is indicated at less than 15 mL/min/1.73m2. Performed By: #### 2 338213, 14330257, 711143759, 4747758, 04554371, 0298250, 0831800 #### [facility] [address] [place] [address] CBC AUTO DIFFon 06-07-2022 BASO # 0.0 103/ul Normal 0.0-0.1 [facility] Comment on above: Performed By: #### C BC #### [facility] [address] [place] [address] Dr. Emiliano Sheehan Basophils/100 WBC (Bld) 0.6 % Normal 0.2-2.0 [facility] Comment on above: Performed By: #### C BC #### [facility] [address] [place] [address] Dr. Emiliano Sheehan EO # 0.5 103/ul Normal 0.0-0.7 [facility] Comment on above: Performed By: #### C BC #### [facility] [address] [place] [address] Dr. Emiliano Sheehan Eosinophils/100 WBC (Bld) 7.6 % Critically high 0.9-7.0 [facility] Comment on above: Performed By: #### C BC #### [facility] [address] [place] [address] Dr. Emiliano Sheehan Erythrocyte distribution width (RBC) [Ratio] 12.3 % Normal 11.0-15.0 [facility] Comment on above: Performed By: #### C BC #### [facility] [address] [place] [address] Dr. Emiliano Sheehan Hematocrit (Bld) [Volume fraction] 40.1 % Critically low 42.0-54.0 [facility] Comment on above: Performed By: #### C BC #### [facility] [address] [place] [address] Dr. Emiliano Sheehan Hemoglobin (Bld) [Mass/Vol] 13.4 g/dL Critically low 14.0-18.0 [facility] Comment on above: Performed By: #### C BC #### [facility] [address] [place] [address] Dr. Emiliano Sheehan IG # 0.03 10e3/ul Normal 0.00-0.03 [facility] Comment on above: Performed By: #### C BC #### [facility] [address] [place] [address] Dr. Emiliano Sheehan IG % 0.5 % Normal 0.0-0.5 [facility] Comment on above: Performed By: #### C BC #### [facility] [address] [place] [address] Dr. Emiliano Sheehan LYMPH # 1.9 103/ul Normal 1.2-3.8 [facility] Comment on above: Performed By: #### C BC #### [facility] [address] [place] [address] Dr. Emiliano Sheehan Lymphocytes/100 WBC (Bld) 29.5 % Normal 20.5-60.0 [facility] Comment on above: Performed By: #### C BC #### [facility] [address] [place] [address] Dr. Emiliano Sheehan MANUAL DIFF REQ NO Normal [facility] Comment on above: Performed By: #### C BC #### [facility] [address] [address] [address] Emiliano Sheehan MCH (RBC) [Entitic mass] 30.4 pg Normal 25.9-34.0 [facility] Comment on above: Performed By: #### C BC #### [facility] [address] [place] [address] Dr. Emiliano Sheehan MCHC (RBC) [Mass/Vol] 33.4 g/dL Normal 29.9-35.2 [facility] Comment on above: Performed By: #### C BC #### [facility] [address] [place] [address] Dr. Emiliano Sheehan MCV (RBC) [Entitic vol] 90.9 fL Normal 80.0-94.0 [facility] Comment on above: Performed By: #### C BC #### [facility] [address] [place] [address] Dr. Emiliano Sheehan MONO # 0.6 103/ul Normal 0.3-0.8 [facility] Comment on above: Performed By: #### C BC #### [facility] [address] [place] [address] Dr. Emiliano Sheehan Monocytes/100 WBC (Bld) 9.6 % Normal 1.7-12.0 [facility] Comment on above: Performed By: #### C BC #### [facility] [address] [place] [address] Dr. Emiliano Sheehan NEUT # 3.4 103/ul Normal 1.4-6.5 [facility] Comment on above: Performed By: #### C BC #### [facility] [address] [place] [address] Dr. Emiliano Sheehan Neutrophils/100 WBC (Bld) 52.2 % Normal 43.0-75.0 [facility] Comment on above: Performed By: #### C BC #### [facility] [address] [place] [address] Dr. Emiliano Sheehan Platelet mean volume (Bld) [Entitic vol] 9.0 fL Critically low 9.5-13.5 [facility] Comment on above: Performed By: #### C BC #### [facility] [address] [address] [address] Emiliano Sheehan PLT 205 103/ul Normal 150-450 [facility] Comment on above: Performed By: #### C BC #### [facility] [address] [place] [address] Dr. Emiliano Sheehan RBC 4.41 106/ul Critically low 4.70-6.10 [facility] Comment on above: Performed By: #### C BC #### [facility] [address] [address] [address] Emiliano Sheehan WBC 6.5 103/ul Normal 4.0-11.0 [facility] Comment on above: Performed By: #### C BC #### [facility] [address] [place] [address] Dr. Emiliano Sheehan FREE T3on 06-07-2022 FREE T3 2.37 pg/mlL Normal 2.18-3.98 [facility] Comment on above: Performed By: #### P SAD, FT4 #### [facility] [address] [place] [address] Dr. Emiliano Sheehan FREE T4on 06-07-2022 Free T4 [Mass/Vol] 1.37 ng/dL Normal 0.76-1.46 [facility] Comment on above: Performed By: #### P SAD, FT4 #### [facility] [address] [place] [address] Dr. Emiliano Sheehan GLYCOHEMOGLOBIN A1Con 2022 ADA RECOMMENDATION SEE BELOW Normal [facility] Comment on above: Result Comment: ADA RECOMMENDED LIMIT 4.0 - 6.0 ADA THERAPEUTIC TARGET < 7.0 ACTION SUGGESTED > 7.0 Performed By: #### P SAD, FT4 #### [facility] [address] [place] [address] Dr. Emiliano Sheehan Glucose [Mass/Vol] 206 mg/dL Normal [facility] Comment on above: Performed By: #### P SAD, FT4 #### [facility] [address] [place] [address] Dr. Emiliano Sheehan HbA1c (Bld) [Mass fraction] 8.8 % Critically high 4.5-6.2 [facility] Comment on above: Performed By: #### P SAD, FT4 #### [facility] [address] [address] [address] Emiliano Sheehan LIPID PROFILEon 06-07-2022 CHOL-HDL RATIO NORM SEE BELOW Normal [facility] Comment on above: Result Comment: 3.3 - 4.4 LOW RISK 4.4 - 7.1 AVERAGE RISK 7.1 - 11.0 MODERATE RISK >11.0 HIGH RISK Performed By: #### P SAD, FT4 #### [facility] [address] [address] [address] Emiliano Sheehan Cholesterol [Mass/Vol] 169 mg/dL Normal <=200 [facility] Comment on above: Performed By: #### P SAD, FT4 #### [facility] [address] [address] [address] Emiliano Sheehan Cholesterol in HDL [Mass/Vol] 37 mg/dL Critically low 40-60 [facility] Comment on above: Performed By: #### P SAD, FT4 #### [facility] [address] [address] [address] Emiliano Sheehan Cholesterol in LDL [Mass/Vol] 69.4 mg/dL Normal [facility] Comment on above: Performed By: #### P SAD, FT4 #### [facility] [address] [address] [address] Emiliano Sheehan Cholesterol.total/Chol esterol in HDL [Mass ratio] 4.6 {ratio} Normal [facility] Comment on above: Performed By: #### P SAD, FT4 #### [facility] [address] [address] [address] Emiliano Sheehan HDL NORMAL > or = 60 mg/dl - LO W CARDIOVASCULAR RISK <40 mg/dl - HIGH CARDIOVASCULAR RISK Normal [facility] Comment on above: Performed By: #### P SAD, FT4 #### [facility] [address] [address] [address] Emiliano Sheehan LDL CALC NORMAL SEE BELOW Normal [facility] Comment on above: Result Comment: <100 mg/dl OPTIMAL 100 - 129 mg/dl NEAR OR ABOVE OPTIMAL 130 - 159 mg/dl BORDERLINE HIGH 160 - 189 mg/dl HIGH >190 mg/dl VERY HIGH Performed By: #### P SAD, FT4 #### [facility] [address] [place] [address] Dr. Emiliano Sheehan Triglyceride [Mass/Vol] 313 mg/dL Critically high <=150 [facility] Comment on above: Performed By: #### P SAD, FT4 #### [facility] [address] [place] [address] Dr. Emiliano Sheehan VLDL CALC 62.6 mg/dL Normal [facility] Comment on above: Performed By: #### P SAD, FT4 #### [facility] [address] [place] [address] Dr. Emiliano Sheehan PROF 14(COMP METB)on 023 Albumin [Mass/Vol] 4.0 g/dL Normal 3.4-5.0 [facility] Comment on above: Performed By: #### L IPID, CMP, FT3, URIC #### [facility] [address] [place] [address] Dr. Emiliano Sheehan Albumin/Globulin [Mass ratio] 1.1 {ratio} Normal [facility] Comment on above: Performed By: #### L IPID, CMP, FT3, URIC #### [facility] [address] [place] [address] Dr. Emiliano Sheehan ALP [Catalytic activity/Vol] 86 U/L Normal 46-116 [facility] Comment on above: Performed By: #### L IPID, CMP, FT3, URIC #### [facility] [address] [place] [address] Dr. Emiliano Sheehan ALT [Catalytic activity/Vol] 35 U/L Normal 16-63 [facility] Comment on above: Performed By: #### L IPID, CMP, FT3, URIC #### [facility] [address] [place] [address] Dr. Emiliano Sheehan Anion gap [Moles/Vol] 12.9 mmol/L Normal [facility] Comment on above: Performed By: #### L IPID, CMP, FT3, URIC #### [facility] [address] [address] [address] Emiliano Sheehan AST [Catalytic activity/Vol] 17 U/L Normal 15-37 [facility] Comment on above: Performed By: #### L IPID, CMP, FT3, URIC #### [facility] [address] [place] [address] Dr. Emiliano Sheehan Bilirubin [Mass/Vol] 0.4 mg/dL Normal 0.2-1.0 [facility] Comment on above: Performed By: #### L IPID, CMP, FT3, URIC #### [facility] [address] [place] [address] Dr. Emiliano Sheehan Calcium [Mass/Vol] 9.1 mg/dL Normal 8.5-10.1 [facility] Comment on above: Performed By: #### L IPID, CMP, FT3, URIC #### [facility] [address] [place] [address] Dr. Emiliano Sheehan Chloride [Moles/Vol] 103 mmol/L Normal 98-107 [facility] Comment on above: Performed By: #### L IPID, CMP, FT3, URIC #### [facility] [address] [place] [address] Dr. Emiliano Sheehan CO2 [Moles/Vol] 25.6 mmol/L Normal 21.0-32.0 [facility] Comment on above: Performed By: #### L IPID, CMP, FT3, URIC #### [facility] [address] [place] [address] Dr. Emiliano Sheehan Creatinine [Mass/Vol] 1.28 mg/dL Normal 0.70-1.30 [facility] Comment on above: Performed By: #### L IPID, CMP, FT3, URIC #### [facility] [address] [place] [address] Dr. Emiliano Sheehan EGFR-AF GREENLANDIC >60 Normal >=60 [facility] Comment on above: Performed By: #### L IPID, CMP, FT3, URIC #### [facility] [address] [place] [address] Dr. Emiliano Sheehan EGFR-NON AF GREENLANDIC 56 mL/min/1.73m2 Critically low >=60 [facility] Comment on above: Performed By: #### L IPID, CMP, FT3, URIC #### [facility] [address] [address] [address] Emiliano Sheehan Globulin (S) [Mass/Vol] 3.7 g/dL Normal [facility] Comment on above: Performed By: #### L IPID, CMP, FT3, URIC #### [facility] [address] [place] [address] Dr. Emiliano Sheehan Glucose [Mass/Vol] 210 mg/dL Critically high 74-106 T [facility] Comment on above: Performed By: #### L IPID, CMP, FT3, URIC #### [facility] [address] [place] [address] Dr. Emiliano Sheehan Potassium [Moles/Vol] 4.5 mmol/L Normal 3.5-5.1 [facility] Comment on above: Performed By: #### L IPID, CMP, FT3, URIC #### [facility] [address] [place] [address] Dr. Emiliano Sheehan Protein [Mass/Vol] 7.7 g/dL Normal 6.4-8.2 [facility] Comment on above: Performed By: #### L IPID, CMP, FT3, URIC #### [facility] [address] [place] [address] Dr. Emiliano Sheehan Sodium [Moles/Vol] 137 mmol/L Normal 136-145 [facility] Comment on above: Performed By: #### L IPID, CMP, FT3, URIC #### [facility] [address] [address] [address] Emiliano Sheehan Urea nitrogen [Mass/Vol] 19.0 mg/dL Critically high 7.0-18.0 [facility] Comment on above: Performed By: #### L IPID, CMP, FT3, URIC #### [facility] [address] [place] [address] Dr. Emiliano Sheehan Urea nitrogen/Creatinine [Mass ratio] 14.8 mg/mg Normal [facility] Comment on above: Performed By: #### L IPID, CMP, FT3, URIC #### [facility] [address] [place] [address] Dr. Emiliano Sheehan URIC ACID SERUMon 06-07-2022 Urate [Mass/Vol] 3.5 mg/dL Normal 3.5-7.2 [facility] Comment on above: Performed By: #### P SAD, FT4 #### [facility] [address] [place] [address] Dr. Emiliano Sheehan FREE T3on 02-11-2022 FREE T3 2.33 pg/mlL Normal 2.18-3.98 [facility] Comment on above: Performed By: #### P SAD, FT4 #### [facility] [address] [place] [address] Dr. Emiliano Sheehan FREE T4on 02-11-2022 Free T4 [Mass/Vol] 1.20 ng/dL Normal 0.76-1.46 [facility] Comment on above: Performed By: #### F T4 #### [facility] [address] [place] [address] Dr. Emiliano Sheehan TSHon 02-11-2022 TSH 2.124 uIU/mL Normal 0.358-3.740 [facility] Comment on above: Performed By: #### P SAD, FT4 #### [facility] [address] [place] [address] Dr. Emiliano Sheehan POINT OF CARE GLUCOSEon Glucose [Mass/Vol] 205 mg/dL Critically high 74-106 T [facility] Comment on above: Performed By: #### P SAD, FT4 #### [facility] [address] [place] [address] Dr. Emiliano Sheehan Covid-19 PCR (CVDTB)on SARS-CoV-2 (COVID-19) RNA LUIS+probe Ql (Unsp spec) Not detected Normal NOT DETECTED [facility] Comment on above: Result Comment: This test is not yet approved or cleared by the [place] FDA. When there are no FDA-approved or cleared tests available, and other criteria are met, FDA can make tests available under an emergency access mechanism called an Emergency Use Authorization (EUA). The EUA for this test is supported by the Radiation Officer of Health and Human Service's (HHS's) declaration [...] SARS-CoV-2. Performed By: #### C VDTB #### [facility] [address] [place] [address] Dr. Emiliano Sheehan GLYCOHEMOGLOBIN A1Con 2021 ADA RECOMMENDATION SEE BELOW Normal [facility] Comment on above: Result Comment: ADA RECOMMENDED LIMIT 4.0 - 6.0 ADA THERAPEUTIC TARGET < 7.0 ACTION SUGGESTED > 7.0 Performed By: #### P SAD, FT4 #### [facility] [address] [place] [address] Dr. Emiliano Sheehan Glucose [Mass/Vol] 177 mg/dL Normal [facility] Comment on above: Performed By: #### P SAD, FT4 #### [facility] [address] [place] [address] Dr. Emiliano Sheehan HbA1c (Bld) [Mass fraction] 7.8 % Critically high 4.5-6.2 [facility] Comment on above: Performed By: #### P SAD, FT4 #### [facility] [address] [place] [address] Dr. Emiliano Sheehan CBC AUTO DIFFon 12-01-2021 BASO # 0.0 103/ul Normal 0.0-0.1 [facility] Comment on above: Performed By: #### P SAD, FT4 #### [facility] [address] [place] [address] Dr. Emiliano Sheehan Basophils/100 WBC (Bld) 0.5 % Normal 0.2-2.0 [facility] Comment on above: Performed By: #### P SARIAH, FT4 #### [facility] [address] [place] [address] Dr. Emiliano Sheehan EO # 0.5 103/ul Normal 0.0-0.7 [facility] Comment on above: Performed By: #### P SARIAH, FT4 #### [facility] [address] [place] [address] Dr. Emiliano Sheehan Eosinophils/100 WBC (Bld) 5.7 % Normal 0.9-7.0 [facility] Comment on above: Performed By: #### P SARIAH, FT4 #### [facility] [address] [place] [address] Dr. Emiliano Sheehan Erythrocyte distribution width (RBC) [Ratio] 12.8 % Normal 11.0-15.0 [facility] Comment on above: Performed By: #### P SARIAH, FT4 #### [facility] [address] [place] [address] Dr. Emiliano Sheehan Hematocrit (Bld) [Volume fraction] 39.5 % Critically low 42.0-54.0 [facility] Comment on above: Performed By: #### P SARIAH, FT4 #### [facility] [address] [place] [address] Dr. Emiliano Sheehan Hemoglobin (Bld) [Mass/Vol] 12.9 g/dL Critically low 14.0-18.0 [facility] Comment on above: Performed By: #### P SARIAH, FT4 #### [facility] [address] [place] [address] Dr. Emiliano Sheehan IG # 0.03 10e3/ul Normal 0.00-0.03 [facility] Comment on above: Performed By: #### P SARIAH, FT4 #### [facility] [address] [place] [address] Dr. Emiliano Sheehan IG % 0.3 % Normal 0.0-0.5 [facility] Comment on above: Performed By: #### P SARIAH, FT4 #### [facility] [address] [address] [address] Emiliano Sheehan LYMPH # 2.3 103/ul Normal 1.2-3.8 [facility] Comment on above: Performed By: #### P SAD, FT4 #### [facility] [address] [place] [address] Dr. Emiliano Sheehan Lymphocytes/100 WBC (Bld) 26.7 % Normal 20.5-60.0 [facility] Comment on above: Performed By: #### P SAD, FT4 #### [facility] [address] [place] [address] Dr. Emiliano Sheehan MANUAL DIFF REQ NO Normal [facility] Comment on above: Performed By: #### P SAD, FT4 #### [facility] [address] [place] [address] Dr. Emiliano Sheehan MCH (RBC) [Entitic mass] 31.2 pg Normal 25.9-34.0 [facility] Comment on above: Performed By: #### P SAD, FT4 #### [facility] [address] [place] [address] Dr. Emiliano Sheehna MCHC (RBC) [Mass/Vol] 32.7 g/dL Normal 29.9-35.2 [facility] Comment on above: Performed By: #### P SAD, FT4 #### [facility] [address] [place] [address] Dr. Emiliano Sheehan MCV (RBC) [Entitic vol] 95.6 fL Critically high 80.0-94.0 [facility] Comment on above: Performed By: #### P SAD, FT4 #### [facility] [address] [place] [address] Dr. Emiliano Sheehan MONO # 0.8 103/ul Normal 0.3-0.8 [facility] Comment on above: Performed By: #### P SAD, FT4 #### [facility] [address] [place] [address] Dr. Emiliano Sheehan Monocytes/100 WBC (Bld) 9.4 % Normal 1.7-12.0 [facility] Comment on above: Performed By: #### P SAD, FT4 #### [facility] [address] [address] [address] Emiliano Sheehan NEUT # 4.9 103/ul Normal 1.4-6.5 [facility] Comment on above: Performed By: #### P SAD, FT4 #### [facility] [address] [place] [address] Dr. Emiliano Sheehan Neutrophils/100 WBC (Bld) 57.4 % Normal 43.0-75.0 [facility] Comment on above: Performed By: #### P SAD, FT4 #### [facility] [address] [place] [address] Dr. Emiliano Sheehan Platelet mean volume (Bld) [Entitic vol] 8.8 fL Critically low 9.5-13.5 [facility] Comment on above: Performed By: #### P SAD, FT4 #### [facility] [address] [place] [address] Dr. Emiliano Sheehan PLT 210 103/ul Normal 150-450 [facility] Comment on above: Performed By: #### P SAD, FT4 #### [facility] [address] [place] [address] Dr. Emiliano Sheehan RBC 4.13 106/ul Critically low 4.70-6.10 [facility] Comment on above: Performed By: #### P SAD, FT4 #### [facility] [address] [place] [address] Dr. Emiliano Sheehan WBC 8.6 103/ul Normal 4.0-11.0 [facility] Comment on above: Performed By: #### P SAD, FT4 #### [facility] [address] [place] [address] Dr. Emiliano Sheehan FREE T3on 12-01-2021 FREE T3 2.20 pg/mlL Normal 2.18-3.98 [facility] Comment on above: Performed By: #### T SH, FT3, LIPID, CMP #### [facility] [address] [place] [address] Dr. Emiliano Sheehan FREE T4on 12-01-2021 Free T4 [Mass/Vol] 1.11 ng/dL Normal 0.76-1.46 [facility] Comment on above: Performed By: #### P SAD, FT4 #### [facility] [address] [place] [address] Dr. Emiliano Sheehan LIPID PROFILEon 12-01-2021 CHOL-HDL RATIO NORM SEE BELOW Normal [facility] Comment on above: Result Comment: 3.3 - 4.4 LOW RISK 4.4 - 7.1 AVERAGE RISK 7.1 - 11.0 MODERATE RISK >11.0 HIGH RISK Performed By: #### T SH, FT3, LIPID, CMP #### [facility] [address] [place] [address] Dr. Emiliano Sheehan Cholesterol [Mass/Vol] 146 mg/dL Normal <=200 Th [facility] Comment on above: Performed By: #### T SH, FT3, LIPID, CMP #### [facility] [address] [place] [address] Dr. Emiliano Sheehan Cholesterol in HDL [Mass/Vol] 41 mg/dL Normal 40-60 [facility] Comment on above: Performed By: #### T SH, FT3, LIPID, CMP #### [facility] [address] [place] [address] Dr. Emiliano Sheehan Cholesterol in LDL [Mass/Vol] 59.8 mg/dL Normal [facility] Comment on above: Performed By: #### T SH, FT3, LIPID, CMP #### [facility] [address] [place] [address] Dr. Emiliano Sheehan Cholesterol.total/Chol esterol in HDL [Mass ratio] 3.6 {ratio} Normal [facility] Comment on above: Performed By: #### T SH, FT3, LIPID, CMP #### [facility] [address] [place] [address] Dr. Emiliano Sheehan HDL NORMAL > or = 60 mg/dl - LO W CARDIOVASCULAR RISK <40 mg/dl - HIGH CARDIOVASCULAR RISK Normal [facility] Comment on above: Performed By: #### T SH, FT3, LIPID, CMP #### [facility] [address] [place] [address] Dr. Emiliano Sheehan LDL CALC NORMAL SEE BELOW Normal [facility] Comment on above: Result Comment: <100 mg/dl OPTIMAL 100 - 129 mg/dl NEAR OR ABOVE OPTIMAL 130 - 159 mg/dl BORDERLINE HIGH 160 - 189 mg/dl HIGH >190 mg/dl VERY HIGH Performed By: #### T SH, FT3, LIPID, CMP #### [facility] [address] [address] [address] Emiliano Sheehan Triglyceride [Mass/Vol] 226 mg/dL Critically high <=150 [facility] Comment on above: Performed By: #### T SH, FT3, LIPID, CMP #### [facility] [address] [address] [address] Emiliano Sheehan VLDL CALC 45.2 mg/dL Normal [facility] Comment on above: Performed By: #### T SH, FT3, LIPID, CMP #### [facility] [address] [address] [address] Emiliano Sheehan PROF 14(COMP METB)on 022 Albumin [Mass/Vol] 4.2 g/dL Normal 3.4-5.0 [facility] Comment on above: Performed By: #### T SH, FT3, LIPID, CMP #### [facility] [address] [address] [address] Emiliano Sheehan Albumin/Globulin [Mass ratio] 1.2 {ratio} Normal [facility] Comment on above: Performed By: #### T SH, FT3, LIPID, CMP #### [facility] [address] [address] [address] Emiliano Sheehan ALP [Catalytic activity/Vol] 82 U/L Normal 46-116 [facility] Comment on above: Performed By: #### T SH, FT3, LIPID, CMP #### [facility] [address] [address] [address] Emiliano Sheehan ALT [Catalytic activity/Vol] 26 U/L Normal 16-63 [facility] Comment on above: Performed By: #### T SH, FT3, LIPID, CMP #### [facility] [address] [address] [address] Emiliano Sheehan Anion gap [Moles/Vol] 13.1 mmol/L Normal Th [facility] Comment on above: Performed By: #### T SH, FT3, LIPID, CMP #### [facility] [address] [address] [address] Emiliano Sheehan AST [Catalytic activity/Vol] 12 U/L Critically low 15-37 [facility] Comment on above: Performed By: #### T SH, FT3, LIPID, CMP #### [facility] [address] [place] [address] Dr. Emiliano Sheehan Bilirubin [Mass/Vol] 0.8 mg/dL Normal 0.2-1.0 [facility] Comment on above: Performed By: #### T SH, FT3, LIPID, CMP #### [facility] [address] [place] [address] Dr. Emiliano Sheehan Calcium [Mass/Vol] 9.2 mg/dL Normal 8.5-10.1 [facility] Comment on above: Performed By: #### T SH, FT3, LIPID, CMP #### [facility] [address] [place] [address] Dr. Emiliano Sheehan Chloride [Moles/Vol] 103 mmol/L Normal 98-107 [facility] Comment on above: Performed By: #### T SH, FT3, LIPID, CMP #### [facility] [address] [place] [address] Dr. Emiliano Sheehan CO2 [Moles/Vol] 27.2 mmol/L Normal 21.0-32.0 [facility] Comment on above: Performed By: #### T SH, FT3, LIPID, CMP #### [facility] [address] [place] [address] Dr. Emiliano Sheehan Creatinine [Mass/Vol] 1.22 mg/dL Normal 0.70-1.30 [facility] Comment on above: Performed By: #### T SH, FT3, LIPID, CMP #### [facility] [address] [address] [address] Emiliano Sheehan EGFR-AF GREENLANDIC >60 Normal >=60 [facility] Comment on above: Performed By: #### T SH, FT3, LIPID, CMP #### [facility] [address] [place] [address] Dr. Emiliano Sheehan EGFR-NON AF GREENLANDIC 59 mL/min/1.73m2 Critically low >=60 [facility] Comment on above: Performed By: #### T SH, FT3, LIPID, CMP #### [facility] [address] [place] [address] Dr. Emiliano Sheehan Globulin (S) [Mass/Vol] 3.5 g/dL Normal [facility] Comment on above: Performed By: #### T SH, FT3, LIPID, CMP #### [facility] [address] [place] [address] Dr. Emiliano Sheehan Glucose [Mass/Vol] 159 mg/dL Critically high 74-106 [facility] Comment on above: Performed By: #### T SH, FT3, LIPID, CMP #### [facility] [address] [place] [address] Dr. Emiliano Sheehan Potassium [Moles/Vol] 4.3 mmol/L Normal 3.5-5.1 [facility] Comment on above: Performed By: #### T SH, FT3, LIPID, CMP #### [facility] [address] [place] [address] Dr. Emiliano Sheehan Protein [Mass/Vol] 7.7 g/dL Normal 6.4-8.2 [facility] Comment on above: Performed By: #### T SH, FT3, LIPID, CMP #### [facility] [address] [place] [address] Dr. Emiliano Sheehan Sodium [Moles/Vol] 139 mmol/L Normal 136-145 [facility] Comment on above: Performed By: #### T SH, FT3, LIPID, CMP #### [facility] [address] [place] [address] Dr. Emiliano Sheehan Urea nitrogen [Mass/Vol] 19.0 mg/dL Critically high 7.0-18.0 [facility] Comment on above: Performed By: #### T SH, FT3, LIPID, CMP #### [facility] [address] [place], [place] [address] Dr. Emiliano Sheehan Urea nitrogen/Creatinine [Mass ratio] 15.6 mg/mg Normal [facility] Comment on above: Performed By: #### T SH, FT3, LIPID, CMP #### [facility] [address] [place], [place] [address] Dr. Emiliano Sheehan TSHon 12-01-2021 TSH 4.588 uIU/mL Critically high 0.358-3.740 [facility] Comment on above: Performed By: #### T SH, FT3, LIPID, CMP #### [facility] [address] [place], [place] [address] Dr. Emiliano Sheehan Vital Signs Date Time Vital Sign Value Performing Clinician Facility 12-21-2023 13:34-0400 Body height 170.2 cm Hugo Jacobcaleb WALSH Work Phone: [facility] 12-21-2023 13:34-0400 Body mass index (BMI) [Ratio] 35.24 kg/m2 Hugo Power DO Work Phone: [facility] 12-21-2023 13:34-0400 Body weight 102.06 kg Hugo Gaonaisa Work Phone: [facility] 12-14-2023 11:05-0400 Body height 170.2 cm Pac 2 Work Phone: [facility] 12-14-2023 11:05-0400 Body mass index (BMI) [Ratio] 36.81 kg/m2 Pac 2 Work Phone: [facility] 12-14-2023 11:05-0400 Body weight 106.59 kg Pac 2 Work Phone: [facility] 11-04-2023 14:58-0400 Diastolic blood pressure 75 mm[Hg] MD Shivani Limon Work Phone: [facility] 11-04-2023 14:58-0400 Heart rate 87 /min MD Shivani Limon Work Phone: [facility] 11-04-2023 14:58-0400 Respiratory rate 16 /min MD Shivani Limon Work Phone: [facility] 11-04-2023 14:58-0400 SaO2% (BldA) [Mass fraction] 94 % MD Shivani Limon Work Phone: [facility] 11-04-2023 14:58-0400 Systolic blood pressure 125 mm[Hg] MD Shivani Limon Work Phone: [facility] 11-04-2023 11:31-0400 Body height 167.64 cm MD Shivani Limon Work Phone: [facility] 11-04-2023 11:31-0400 Body temperature 98.7 [degF] MD Shivani Limon Work Phone: [facility] 11-04-2023 11:31-0400 Body weight 104.32 kg MD Shivani Limon Work Phone: [facility] 01-03-2023 08:28-0500 Blood Pressure Location [facility] 01-03-2023 08:28-0500 Diastolic blood pressure 80 mm[Hg] [facility] 01-03-2023 08:28-0500 Heart rate 70 /min [facility] 01-03-2023 08:28-0500 Respiratory rate 16 /min [facility] 01-03-2023 08:28-0500 SaO2% (BldA) [Mass fraction] 99 % [facility] 01-03-2023 08:28-0500 Systolic blood pressure 132 mm[Hg] [facility] 12-23-2021 15:56-0400 Blood Pressure Location Stephanie MATHEWS [facility] 12-23-2021 15:56-0400 Diastolic blood pressure 96 mm[Hg] Stephanie MATHEWS [facility] 12-23-2021 15:56-0400 Heart rate 76 /min Stephanie BADILLOL [facility] 12-23-2021 15:56-0400 Respiratory rate 16 /min Stephanie NILL [facility] [place] 12-23-2021 15:56-0400 Systolic blood pressure 132 mm[Hg] Stephanie NILL [facility] [place] Encounters Encounter Date Encounter Type Care Provider Facility Start: 01-09-2024 ambulatory Fidelina CONKLIN Facili ty:[facility] Start: 12-23-2023 ambulatory Fidelina CONKLIN Facility :[facility] Start: 12-22-2023 End: 12-22-2023 ambulatory Shivani Limon Facility:[facility] Start: 12-21-2023 End: 12-21-2023 Bamboo flowsheet Hugo Power DO Work Phone: [facility] Start: 12-21-2023 End: 12-21-2023 Bamboo flowsheet Hugo Jasmin Tono DO Work Phone: [facility] Start: 12-21-2023 End: 12-21-2023 Postop follow up visit related to original px Hugo Castellanos Tono DO Work Phone: [facility] Comment on above: Skin cancer of nose (Primary Dx) Start: 12-21-2023 End: 12-21-2023 ambulatory HUGO POWER Not Available Start: 12-20-2023 End: 12-20-2023 Telephone encounter Lydia Logan RN [facility] Radiology Comment on above: Radiology Pre Proced ure Instructions Start: 12-20-2023 ambulatory SHIVANI LIMON Facility: [facility] Start: 12-20-2023 End: 12-20-2023 Subsequent hospital visit by physician Mri Anes/Anxiolysis [facility] Start: 12-20-2023 End: 12-20-2023 Subsequent hospital visit by physician Mri Radio [facility] (I-Stat/1.5t) Radiology Comment on above: Sciatica, right side [M54.31] Start: 12-20-2023 End: 12-20-2023 ambulatory UNKNOWN PROVIDER Facility:[facility] Start: 12-19-2023 End: 12-19-2023 Telephone encounter Lorena Simons RN [facility] Radiology Comment on above: MRI Appointment Start: 12-14-2023 End: 12-14-2023 ambulatory CASPER WOMACK Facility:[facility] Start: 12-14-2023 Encounter for other preprocedural examination CASPER WOMACK [facility] Start: 12-14-2023 End: 12-14-2023 Admission to establishment [facility] Work Phone: Pre Anesthesia Start: 12-14-2023 End: 12-14-2023 Anesthesia consultation Pac 2 Work Phone: Pre Anesthesia Comment on above: Pre-op evaluation (P rimary Dx); Primary hypertension; Type 2 diabetes mellitus without complication, without long-term current use of insulin (HCC); AVELINA (obstructive sleep apnea); Class 2 obesity due to excess calories without serious comorbidity with body mass index (BMI) of 36.0 to 36.9 in adult; Other specified hypothyroidism Start: 12-14-2023 End: 12-14-2023 Preprocedural examination done Pac 2 Work Phone: [facility] Work Phone: Start: 12-07-2023 End: 12-07-2023 Telephone encounter Amna Escalera RN MRI Q Comment on above: Appointment (Anxioly sis Education) Returning Patient's Call Start: 11-16-2023 End: 11-16-2023 ambulatory HUGO POWER Not Available Start: 11-04-2023 End: 11-04-2023 ambulatory HUGO POWER Not Available Start: 11-04-2023 End: 11-04-2023 Admission to same day surgery center MD Shivani Limon Work Phone: [facility] [place] Start: 11-04-2023 End: 11-04-2023 ambulatory MD Shivani Limon Work Phone: [facility] Work Phone: Start: 11-01-2023 End: 11-01-2023 Patient encounter procedure MD Shivani Limon Work Phone: [facility] Work Phone: Start: 11-01-2023 End: 11-01-2023 ambulatory MD Shivani Limon Work Phone: [facility] Work Phone: Start: 11-01-2023 Encounter for preprocedural laboratory examination Hugo Power [facility] Start: 10-31-2023 End: 10-31-2023 ambulatory HUGO POWER Not Available Start: 10-13-2023 End: 10-13-2023 ambulatory MD Shivani Limon Facility:[facility] Start: 10-12-2023 End: 10-12-2023 Lab Drop off Shivani Limon [facility] Start: 10-12-2023 End: 10-12-2023 ambulatory MD Shivani Limon Facility:[facility] Start: 10-11-2023 End: 10-11-2023 ambulatory MD Shivani Limon Facility:[facility] Start: 09-06-2023 End: 09-06-2023 ambulatory MD Shivani Limon Facility:[facility] [place] Start: 08-31-2023 End: 08-31-2023 ambulatory SPEECH [employer] LANG[employer]AGE [employer]OR Jennie Rosenberg Facility:[facility] Start: 07-22-2023 End: 07-22-2023 ambulatory LIZ Edison SHERMAN Not Available Start: 07-20-2023 End: 07-20-2023 ambulatory NANCYAriel IQBALVELIA Not Available Start: 06-30-2023 End: 06-30-2023 ambulatory MD Shivani Limon Facility:[facility] Start: 06-23-2023 End: 06-23-2023 Lab Drop off Shivani Limon [facility] Start: 06-23-2023 End: 06-23-2023 ambulatory MD Shivani Limon Facility[facility] Start: 01-03-2023 End: 01-03-2023 ambulatory Robert Sandhu Facility:[facility] Start: 01-03-2023 End: 01-03-2023 Patient encounter procedure Robert Sandhu [facility] Start: 01-03-2023 End: 01-03-2023 Well adult monitoring check done Robert Sandhu [facility] Start: 12-30-2022 End: 12-30-2022 ambulatory MD Shivani Limon Facility:[facility] Start: 12-24-2022 ambulatory MD Shivani Limon [facility] ity:[facility] Start: 12-01-2022 End: 12-01-2022 ambulatory MD Shivani Limon Facility:[facility] Start: 12-01-2022 End: 12-01-2022 Lab Drop off Shivani Limon [facility] Start: 11-30-2022 End: 11-30-2022 ambulatory MD Shivani Limon Facility:[facility] Start: 06-07-2022 End: 06-08-[address] CASPER WOMACK . Facility: Start: 02-11-2022 End: 02-12-[address] CASPER WOMACK . Facility: Start: 02-03-2022 End: 02-04-[address] CASPER WOMACK . Facility:[facility] Start: 01-30-2022 Encounter for preprocedural laboratory examination DR STEPHANIE MATHEWS . [facility] Start: 01-27-2022 End: 01-27-[address] CASPER WOMACK . Facility:[facility] Start: 01-23-2022 End: 01-24-[address] STEPHANIE MATHEWS . Facility:[facility] Start: 01-23-2022 End: 01-24-2022 Encounter for preprocedural laboratory examination DR STEPHANIE MATHEWS . Facility:[facility] Start: 12-23-2021 End: 12-23-2021 Patient encounter procedure Stephanie MATHEWS [facility] Start: 12-16-2021 End: 12-17-[address] CASPER WOMACK . Facility: Start: 12-01-2021 End: 12-02-[address] CASPER WOMACK . Facility: Procedures Date Procedure Procedure Detail Performing Clinician Start: 12-20-2023 Mri pelvis w/o contr ast material [facility] Provider Start: 11-04-2023 Excision of lesion of cheek MD Shivani Limon Work Phone: Start: 06-07-[address] CASPER HAGEN . Comment on above: Performed By: #### P SAD, FT4 #### [facility] [address] [place] [address] Dr. Emiliano Sheehan Start: 12-01-[address] CASPER HAGEN . Comment on above: Performed By: #### P SAD, FT4 #### [facility] [address] [place] [address] Dr. Emiliano Sheehan Cystoscopy Stephanie MATHEWS Extraction of cataract Darion BADILLOSammy Lithotripsy Stephanie BADILLOSammy Tonsillectomy Stephanie REID Plan of Treatment Date Care Activity Detail Author Start: 02-18-2028 RSV Vaccine (1 - 1-d ose 75+ series) RSV Vaccine (1 - 1-dose 75+ series) [facility] Start: 10-31-2026 Diabetes Screening Diabetes Screenin g [facility] Start: 02-20-2024 End: 02-20-2024 Patient encounter procedure 02/20/2024 2:15 PM EST Office Visit [facility] [address] [place] [id number] Hugo Power DO [address] [place] [address] [facility] Start: 01-09-2024 ambulatory Ambulatory Facility:[facility] Start: 12-22-2023 End: 12-22-2023 Patient encounter procedure 12/22/2023 3:10 PM EDT Appointment MRI Q [address] [id number] Order in scanned docs dated 10/31/23 for MRI pelvis soft tissue w/o contrast for back pain w/ right sided sciatica MRI Q Comment on above: Order in scanned doc s dated 10/31/23 for MRI pelvis soft tissue w/o contrast for back pain w/ right sided sciatica Start: 12-22-2023 End: 12-22-2023 Patient encounter procedure MRI Q Comment on above: Order in scanned doc s dated 10/31/23 for MRI pelvis soft tissue w/o contrast for back pain w/ right sided sciatica Start: 12-21-2023 End: 12-21-2023 Patient encounter procedure 12/21/2023 1:30 PM EDT Office Visit [facility] [address] [place] [address] Hugo Power DO [address] [place] [address] Arrived [facility] Comment on above: Arrived Start: 12-20-2023 End: 12-20-2023 Patient encounter procedure 12/20/2023 11:10 AM EDT Appointment Radiology [address] [id number] MRI PELVIS (Soft Tissue) WO Contrast / with Anesthesia Radiology Comment on above: MRI PELVIS (Soft Tis merry) WO Contrast / with Anesthesia Start: 12-20-2023 End: 12-20-2023 Admission to same day surgery center 12/20/2023 10:30 AM EDT - 12/20/2023 11:27 AM EDT Surgery [facility] Radiology [address] [place] [address] [place], [address] [address] MRI ANESTHESIA [facility] Radiology Comment on above: MRI ANESTHESIA Start: 12-20-2023 End: 12-20-2023 Anesthesia consultation 12/20/2023 10:30 AM EDT Anesthesia Event [facility] [address] [place] [address] Marlene Morel MD [address] [place] [address] [facility]iology Start: 12-20-2023 End: 12-20-2023 Anes non-invasive imaging/radiation therapy [facility] Start: 12-20-2023 End: 12-20-2023 Patient encounter procedure 12/20/2023 9:30 AM EDT Appointment Radiology [address] [place] [address] MRI PELVIS (Soft Tissue) WO Contrast / with Anesthesia Radiology Comment on above: MRI PELVIS (Soft Tis merry) WO Contrast / with Anesthesia Start: 12-20-2023 Subsequent hospital visit by physician Radiology Comment on above: Other back pain, uns pecified chronicity [M54.89] Start: 11-04-2023 End: 11-04-2023 [facility] Start: 10-23-2023 Covid-19 Vaccine ( season) Covid-19 Vaccine ( season) [facility] Start: 10-23-2023 Influenza vaccination Influenza Vacc ine (#1) [facility] Start: 02-21-2023 Advance Directive Discussion Advance Directive Discussion [facility] Start: 12-20-2020 Pneumococcal Vaccine : 65+ Years (2 of 2 - PPSV23 or PCV20) Pneumococcal Vaccine: 65+ Years (2 of 2 - PPSV23 or PCV20) [facility] Start: 02-15-2020 Pneumococcal Vaccine : 65+ (2 of 2 - PPSV23 or PCV20) Pneumococcal Vaccine: 65+ (2 of 2 - PPSV23 or PCV20) [facility] Start: 2018 Pneumococcal Vaccine : 65+ (1 of 1 - PCV) Pneumococcal Vaccine: 65+ (1 of 1 - PCV) [facility] Start: 10-11-2017 Hemoglobin A1c measurement HbA1C [facility] Start: 2003 Shingrix Vaccine (1 of 2) Shingrix Vaccine (1 of 2) [facility] Start: 1998 Screening for malign ant neoplasm of colon [facility] Start: 02-18-1988 Lipid panel Lipid Screening [facility] Start: 02-18-1972 Urine microalbumin profile DTaP,Tdap,Td Vaccine (1 - Tdap) [facility] Start: 1971 Annual PCP Team [employer]xtures Decorator trisha Disease Visit Annual PCP Team Chronic Disease Visit [facility] Start: 1971 Anxiety Screening Anxiety Screening [facility] Start: 1971 BP Controlled (<130/80) BP Controlle d (<130/80) [facility] Start: 1971 Depression Screening Depression Scre ening [facility] Start: 1971 Hepatitis B surface antibody level LDL Cholesterol [facility] Start: 1971 Hepatitis C screening Hepatitis C Sc reelili [facility] Start: 1963 Diabetic foot examination Diabetic Foot Exam [facility] Start: 1963 Glaucoma screening Dilated Retinal E xam [facility] Start: 1963 Hepatitis B screening Urine Albumin:Creatinine Ratio [facility] Start: 1953 Screening for malign ant neoplasm of colon [facility] Patient Education Know your Meds [facility] Work Phone: Patient referral [facility] Work Phone: Immunizations Immunization Date Immunization Notes Care Provider [facility] 11-30-2022 influenza, high dose seasonal, preservative-free Shivani Limon [facility] 11-30-2022 influenza virus vaccine, unspecified formulation Amna Escalera RN [facility] 02-01-2022 SARS-CoV-2 (COVID-19 ) [id number] Shivani Limon [facility] 01-07-2022 influenza virus vaccine, unspecified formulation Shivani Limon [facility] 01-07-2022 Influenza, Seasonal, Quadrivalent, Adjuvanted Hugo Power DO Work Phone: [facility] 01-09-2021 influenza virus vaccine, unspecified formulation Shivani Limon [facility] 01-09-2021 Influenza, Seasonal, Quadrivalent, Adjuvanted Hugo Murcek DO Work Phone: [facility] 12-16-2020 SARS-CoV-2 (COVID-19 ) mRNA BNT-162b2 vax Shivani Limon [facility] Comment on above: Result Comment: 2022: [id number] 04-25-2020 SARS-CoV-2 (COVID-19 ) mRNA BNT-162b2 vax Shivani Limon [facility] Comment on above: Result Comment: 2022: [id number] 04-04-2020 SARS-CoV-2 (COVID-19 ) mRNA BNT-162b2 [employer] Shivani Limon [facility] Comment on above: Result Comment: 2022: [id number] 12-21-2019 influenza virus vaccine, unspecified formulation Shivani Limon [facility] 12-21-2019 Influenza, Seasonal, Quadrivalent, Adjuvanted Hugo Murcek DO Work Phone: [facility] 12-21-2019 pneumococcal conjuga te vaccine, 13 valent Shivani Limon [facility] Payers Date Payer Category Payer Self-pay 2021 Private Health Insurance [employer] [id number] 2021 Unknown MMO MMO MEDICARE SUPPLEMENT [id number] 2021-Present [phone] [address] [place] [address] Indemnity [id number] 2018 Medicare [id number] 1959 Medicare [id number] 1959 Unknown [id number] 1953 Unknown [id number] 2.16.840.1.336011.3.579.2. 593 1953 Unknown [id number] 2.16.840.1.683945.3.579.2. 593 1953 Unknown [id number] 2.16.840.1.462534.3.579.2. 593 1953 Unknown [id number] 2.16.840.1.877234.3.579.2. 593 1953 Unknown [id number] 2.16.840.1.080195.3.579.2. 593 1953 Unknown [id number] 2.16.840.1.013740.3.579.2. 593 1953 Unknown [id number] 2.16.840.1.872574.3.579.2. 593 1953 Unknown [id number] 2.16.840.1.334068.3.579.2. 727 1953 Unknown [id number] 2.16.840.1.108232.3.579.2. 727 1953 Unknown [id number] 2.16.840.1.024519.3.579.2. 727 1953 Unknown [id number] 2.16.840.1.389641.3.579.2. 727 1953 Unknown [id number] 2.16.840.1.455092.3.579.2. 727 1953 Unknown [id number] 2.16.840.1.288353.3.579.2. 727 1953 Unknown [id number] 2.16.840.1.226578.3.579.2. 72 1953 Unknown [id number] 2.16.840.1.116204.3.579.2. 72 1953 Unknown [id number] 2.16.840.1.103879.3.579.2. 72 1953 Unknown [id number] 2.16.840.1.035129.3.579.2. 72 1953 Unknown [id number] 2.16.840.1.173165.3.579.2. 72 1953 Unknown [id number] 2.16.840.1.885101.3.579.2. 72 1953 Unknown [id number] 2.16.840.1.666734.3.579.2. 72 1953 Unknown [id number] 2.16.840.1.750950.3.579.2. 727 1953 Unknown [id number] 2.16.840.1.897458.3.579.2. 72 1953 Unknown [id number] 2.16.840.1.737981.3.579.2. 727 1953 Unknown [id number] 2.16.840.1.549193.3.579.2. 72 1953 Unknown [id number] 2.16.840.1.553243.3.579.2. 1259 1953 Unknown [id number] 2.16.840.1.031486.3.579.2. 1259 1953 Unknown [id number] 2.16.840.1.179529.3.579.2. 1259 1953 Unknown [id number] 2.16.840.1.095954.3.579.2. 9 1953 Unknown [id number] 2.16.840.1.896913.3.579.2. 1259 1953 Unknown [id number] 2.16.840.1.953575.3.579.2. 1259 1953 Unknown [id number] 2.16.840.1.681936.3.579.2. 1259 1953 Unknown [id number] 2.16.840.1.451940.3.579.2. 727 1953 Unknown [id number] 2.16.840.1.581356.3.579.2. 727 Unknown [id number] 2.16.840.1.249100.3.579.2. 531 Unknown [id number] 2.16.840.1.832506.3.579.2. 531 Social History Date Type Detail Facility Start: 12-23-2021 End: 07-20-2023 Tobacco smoking status Never smoked tobacco (finding) [facility] Tobacco smoking status Never [facility] Start: 11-16-2023 End: 12-14-2023 Sex Assigned At Male Gómez Miguel Ángel Hurdus [facility] Start: 1955 Sex Assigned At Male [facility] Start: 01-17-2012 End: 12-14-2023 Alcoholic beverage intake Current drinker of alcohol (finding) [facility] Start: 01-17-2012 Alcohol Comment occasional [facility] Start: 1955 Sex assigned at Not on file C [facility] Start: 11-16-2023 End: 12-14-2023 History of Social function [facility] Start: 12-14-2023 Alcohol Comment maybe 1 drink per we ek [facility] Start: 07-20-2023 Tobacco use and exposure Smokeless tobacco non-user [facility] Goals Date Patient Goal Desired Activity /State Functional Status Date Assessment Result Facility 01-03-2023 Functional Status N/A RicoVickey [facility] 12-23-2021 Functional Status N/A [facility] Clinical Notes 01-27-2022 to 12-22-2023 Hugo Power DO - 12/21/2023 1:30 PM Darvin Aguilar RT([place]) - 12/20/2023 9:30 AM EDTPatient Jean Pierre Helm PA-C - 12/14/2023 10:30 AM EDTRadiologyRadiologyLaboratoryRadiology Note Date & Type Note Facility 12-22-2023 Note Patient Education BMI for Adults Body mass index (BMI) is a number found using a person's weight and height. BMI can help tell how much of a person's weight is made up of fat. BMI does not measure body fat directly. It is used instead of tests that directly measure body fat, which can be difficult and expensive. What are BMI measurements used for? BMI is useful to: ??? Find out if your weight puts you at higher risk for medical problems. ??? Help recommend changes, such as in diet and exercise. This can help you reach a healthy weight. BMI screening can be done again to see if these changes are working. How is BMI calculated? Your height and weight are measured. The BMI is found from those numbers. This can be done with U.S. or metric measurements. Note that charts and online BMI calculators are available to help you find your BMI quickly and easily without doing these calculations. To calculate your BMI in U.S. measurements: 1. Measure your weight in pounds (lb). 2. Multiply the number of pounds by 703. ??? So, for an adult who weighs 150 lb, multiply that number by 703: 150 x 703, which equals 105,450. 3. Measure your height in inches. Then multiply that number by itself to get a measurement called inches squared. ??? So, for an adult who is 70 inches tall, the inches squared measurement is 70 inches x 70 inches, which equals 4,900 inches squared. 4. Divide the total from step 2 (number of lb x 703) by the total from step 3 (inches squared): 105,450 ? 4,900 = 21.5. This is your BMI. To calculate your BMI in metric measurements: 1. Measure your weight in kilograms (kg). ??? For this example, the weight is 70 kg. 2. Measure your height in meters (m). Then multiply that number by itself to get a measurement called meters squared. ??? So, for an adult who is 1.75 m tall, the meters squared measurement is 1.75 m x 1.75 m, which equals 3.1 meters squared. 3. Divide the number of kilograms (your weight) by the meters squared number. In this example: 70 ? 3.1 = 22.6. This is your BMI. What do the results mean? BMI charts are used to see if you are underweight, normal weight, overweight, or obese. The following guidelines will be used: ??? Underweight: BMI less than 18.5. ??? Normal weight: BMI between 18.5 and 24.9. ??? Overweight: BMI between 25 and 29.9. ??? Obese: BMI of 30 or above. BMI is a tool and cannot diagnose a condition. Talk with your health care provider about what your BMI means for you. Keep these notes in mind: ??? Weight includes fat and muscle. Someone with a muscular build, such as an athlete, may have a BMI that is higher than 24.9. In cases like these, BMI is not a correct measure of body fat. ??? If you have a BMI of 25 or higher, your provider may need to do more testing to find out if excess body fat is the cause. ??? BMI is measured the same way for males and females. Females usually have more body fat than males of the same height and weight. Where to find more information For more information about BMI, including tools to quickly find your BMI, go to: ??? Centers for Disease Control and Prevention: cdc.gov ??? [place] [employer]: heart.org ??? National Heart, Lung, and Blood [place]: nhlbi.nih.gov This information is not intended to replace advice given to you by your health care provider. Make sure you discuss any questions you have with your health care provider. Document Revised: 10/28/2022 Document Reviewed: 10/21/2022 Elsevier Patient Education ? 2023 [employer]. Nutrition BMI for Adults Body mass index (BMI) is a number found using a person's weight and height. BMI can help tell how much of a person's weight is made up of fat. BMI does not measure body fat directly. It is used instead of tests that directly measure body fat, which can be difficult and expensive. What are BMI measurements used for? BMI is useful to: ??? Find out if your weight puts you at higher risk for medical problems. ??? Help recommend changes, such as in diet and exercise. This can help you reach a healthy weight. BMI screening can be done again to see if these changes are working. How is BMI calculated? Your height and weight are measured. The BMI is found from those numbers. This can be done with U.S. or metric measurements. Note that charts and online BMI calculators are available to help you find your BMI quickly and easily without doing these calculations. To calculate your BMI in U.S. measurements: 1. Measure your weight in pounds (lb). 2. Multiply the number of pounds by 703. ??? So, for an adult who weighs 150 lb, multiply that number by 703: 150 x 703, which equals 105,450. 3. Measure your height in inches. Then multiply that number by itself to get a measurement called inches squared. ??? So, for an adult who is 70 inches tall, the inches squared measurement is 70 inches x 70 inches, which equals 4,900 inches squared. 4. Divide the (more content not included)... [facility] 12-21-2023 History of Presen t illness Narrative HPI Patient presents today about month postop excision and flap repair of a right-sided superficial melanoma of the nose. He is doing very well. Relevant postoperative physical examination Examination shows the flap is settling down very nicely. Certainly nothing suggestive of recurrence. Assessment/plan Jocelyn was seen today for cancer. Diagnoses and all orders for this visit: Skin cancer of nose (Primary) Comments: The patient back in 2 months documented in this encounter [facility] 12-20-2023 History of Presen t illness Narrative Radiology Service Progress Note PATIENT NAME: Jocelyn Hussein DATE OF SERVICE: December 20, 2023 TIME: 10:39 AM PATIENT IDENTITY VERIFICATION COMPLETED USING TWO (2) IDENTIFIERS: Name and Date of confirmed by patient verbally and Name and Date of confirmed by identification band. FALL SCREENING: Has the patient had 2 falls in the last year or 1 fall with injury or currently using an Ambulatory Assistive Device (Walker, Cane, Wheelchair, Crutches, etc.)? No PATIENT GENDER DATA: Male PATIENT RELEVANT IMPLANT DATA REVIEWED: Not Applicable PATIENT PRESENTS WITH AN IMPLANTABLE OR ATTACHED HUMAN SERVICES CARE SPECIALIST: No RADIOLOGY DEPARTMENT: MR; Exam(s) Completed: Body: Pelvis PERIPHERAL IV DATA: Not applicable SIGNED BY: RT Frida(Duane) December 20, 2023 10:39 AM documented in this encounter [facility] 12-20-2023 Note HNO ID: [id number] Author: DARVIN YOU RT(Duane) Service: ? Author Type: Technologist Type: Progress Notes Filed: 12/20/2023 10:39 Note Text: Radiology Service Progress Note PATIENT NAME: Jocelyn Hussein DATE OF SERVICE: December 20, 2023 TIME: 10:39 AM PATIENT IDENTITY VERIFICATION COMPLETED USING TWO (2) IDENTIFIERS: Name and Date of confirmed by patient verbally and Name and Date of confirmed by identification band. FALL SCREENING: Has the patient had 2 falls in the last year or 1 fall with injury or currently using an Ambulatory Assistive Device (Walker, Cane, Wheelchair, Crutches, etc.)? No PATIENT GENDER DATA: Male PATIENT RELEVANT IMPLANT DATA REVIEWED: Not Applicable PATIENT PRESENTS WITH AN IMPLANTABLE OR ATTACHED HUMAN SERVICES CARE SPECIALIST: No RADIOLOGY DEPARTMENT: MR; Exam(s) Completed: Body: Pelvis PERIPHERAL IV DATA: Not applicable SIGNED BY: RT Frida(R) December 20, 2023 10:39 AM [facility] 12-14-2023 Instructions Jean Pierre Hollis PA-C - 12/14/2023 11:18 AM EDT Images from the original note were not included. [facility] PATIENT PREOPERATIVE INSTRUCTIONS Shivani Limon MD has scheduled you for your procedure at this surgery center: [facility]: [phone] -- [id number] [id number]. Please read below carefully for your personalized instructions. Dietary Restrictions: - No solid food after midnight. - You may have 12 ounces of clear liquids (water, clear juices such as apple juice or gatorade, carbonated beverages, clear tea, black coffee, jello) until 2 hours before scheduled arrival at facility. Medications: Unless instructed differently below, stay on all of your medications until your surgery. If you start any new medications after today's visit, please contact your surgeon. Pre-Surgery Med Instructions Medication Instructions metFORMIN ER (GLUCOPHAGE XR) 500 mg 24 hr tablet Do not take the day of surgery atorvastatin (LIPITOR) 10 mg tablet Take the night before procedure as usual. levothyroxine (SYNTHROID) 75 mcg tablet Take the day of surgery with a small sip of water Losartan-Hydrochlorothiazide 100-12.5 mg per tablet Do not take the day of surgery metoprolol succinate XL, long acting, (TOPROL XL) 100 mg Tb24 Take the day of surgery with a small sip of water allopurinol 300 mg tablet Do not take the day of surgery If you take any medications for erectile dysfunction-Cialis (Tadalafil), Levitra, Staxyn (Vardenafil) Viagra (Sildenenafil please do not take these for 48 hours before surgery. If you start any new medications after today's visit, please contact the surgeon's office. Important Reminders: - Candy, mints, and tobacco products are NOT permitted the morning of surgery. - Hearing aids, dentures and glasses may be worn the morning of surgery. - NO jewelry, body piercings, makeup, hairpins or contacts are to be worn the day of surgery. If you develop symptoms such as a fever, cold, or flu, or have other changes to your health within TWO DAYS of scheduled surgery or the morning of surgery, please contact the surgery center above. Personal Belongings: -Please have photo ID and insurance cards. -If you do not have a copy of advance directives on file with us, please bring a copy with you on the day of surgery. - Leave ALL valuables and money at home or with family members. For Outpatient Procedures: - YOU MUST HAVE A RESPONSIBLE ENGINEER SECOND ASSISTANT TAKE YOU HOME. A HAND CEMENTER OR CAKE WASHER CANNOT BE MADE A RESPONSIBLE ENGINEER SECOND ASSISTANT. - We recommend that a responsible person stays with you overnight to take care of you. - You cannot stay in a hotel alone after outpatient surgery. You will not be permitted to have your surgery, if you do not have someone to take care of you. Arrival Time for Surgery: - The Surgery Center or hospital where you are having surgery will call the afternoon before surgery (or Tuesday for Tuesday surgery) with a scheduled arrival time. - If you have not heard by 4 pm, please contact the surgery center above. Please be aware that emergency situations arise, which may delay or change your surgical time. If this happens, we will notify you as soon as possible and regret any inconvenience. If you already have an Advance Directive, please fax a copy to [phone] or email to for it to be added to your chart. If you do not have an Advance Directive, you can find the appropriate form and more information at [email or web address]. We recommend that you complete the Advance Directive form found on the website and bring it with you the day of your surgery. It can be witnessed and scanned into your chart that day. Jean Pierre Hollis PA-C documented in this encounter [facility] 12-14-2023 History and physical note Images from the original note were not included. [facility] HISTORY AND PHYSICAL EXAMINATION SERVICE DATE: 12/14/2023 SERVICE TIME: 11:06 AM PRIMARY CARE PHYSICIAN: Casper Womack MD Assessment Patient has the following medical conditions which may affect es-operative course: Primary hypertension -on Losartan-HCTZ and Metoprolol -does not check BP at home Type 2 diabetes mellitus without complication, without long-term current use of insulin (HCC) -on Metformin -last A1c 6.0% per patient in 08/2023 -FBS ~130 AVELINA (obstructive sleep apnea) -compliant with CPAP Class 2 obesity due to excess calories without serious comorbidity with body mass index (BMI) of 36.0 to 36.9 in adult -BMI 36.81 Other specified hypothyroidism -on Levothyroxine Koenig Activity Status Index: METS: Walk indoors, such as around the house (1.75 METs) Do light work around the house, such as dusting or washing dishes (2.70 METs) Take care of self; that is eating, dressing, bathing, using the toilet (2.75 METs) Walk a block or two on level ground (2.75 METs) Climb a flight of stairs or walk up a hill (5.50 METs) DASI Score: 15.45 (Activity currently limited by back/hip pain ) Patient denies any chest pain or undue shortness of breath with the above physical activity. Clinical Frailty Scale: 3. Well, with treated comorbid disease STOP-Bang Score: STOP-Bang Score: 0 (Diagnosed with AVELINA, compliant with CPAP ) ANESTHESIA FINDINGS: Intubation History: No history of difficult intubation Significant Anesthesia Considerations: none Airway History: No history of difficult airway I - PHYSICAL EVALUATION AIRWAY Patient intubated: No. Mallampati: III. TM distance: >3 FB. Neck ROM: full ROM without neurological symptoms. Mouth opening: adequate. Short neck: yes. Thick neck: yes Dewitt present: no Lip Bite Test: I Microretrognathia/Micronagthia/ Recessed Chin: No DENTAL Dental findings: teeth intact. II - ANESTHESIA PLAN Anesthetic plan additional comments: *[facility]/TCI - anesthesia choice. Beta Smooth Monitoring Plan Post Procedure Analgesic Plan PLAN This patient is optimally prepared for surgery. CONSULTS: Patient does not require consults for optimization at this time. The Following Tests/Procedures Have Been Initiated: Labs not indicated per [facility] protocol, EKG not indicated per [facility] protocol Planned Anesthetic: Per anesthesia choice This is a virtual visit using alternative video platform. It required patient-provider interaction for the medical decision making as documented below. REASON FOR VISIT: Jocelyn Hussein is a 68 year old male who is scheduled for MRI under [facility] at the request of Dr. Shivani Limon for consultation. My final recommendation will be communicated back to the requesting physician by way of shared medical record or letter. Subjective The patient has the following: COVID-19 Immunization Status Overdue - Covid-19 Vaccine (5 - 2024-25 season) Overdue since 10/23/2023 02/01/2022 Imm Admin: COVID-19 vaccine, age 12+ yr, bivalent (PFIZER-BIONTECH) 12/16/2020 Imm Admin: COVID-19 original vaccine, age 12+ yr, monovalent (PFIZER-BIONTECH - PURPLE TOP) 04/25/2020 Imm Admin: COVID-19 original vaccine, age 12+ yr, monovalent (PFIZER-BIONTECH - PURPLE TOP) Only the first 3 history entries have been loaded, but more history exists. CHIEF COMPLAINT: Back pain with sciatica HPI: Jocelyn Hussein is a 68 year old male who presents to [facility] today for preop exam. Patient is scheduled for the above procedure on 12/20/23. Patient has been having back pain and sciatica for the past several months. He states it has been getting progressively worse and has begun to affect his activity levels. He has claustrophobia and elects to have MRI under [facility]. Denies fevers, chills, chest pain, and SOB. This is a virtual visit. The visit was conducted using alternative video platform. It required patient-provider interaction for the medical decision making as documented below. I have communicated my name and active licensure. The patient's identity and physical location were verified at the time of this visit. Either the patient or their legal customer account representative has been informed of the risks and benefits of and alternatives to treatment through a remote evaluation and consents to proceed with the evaluation remotely. REVIEW OF SYSTEMS: General: No weight loss, malaise or fevers. Neurological: Negative for: headaches, impaired sensorium, seizures, TIA and strokes. Respiratory: Positive for: obstructive sleep apnea. Negative for: asthma, COPD, current cough, dyspnea, pneumonia within 6 weeks, tobacco use and URI < 2 weeks. Cardiovascular: Positive for: hyperlipidemia and hypertension Negative for: angina, anticoagulation therapy, arrhythmia, CAD, chest pain, CHF, congenital heart defect, DVT/PE, murmur/valvular heart disease and PVD. GI: Negative for: abdominal pain, GERD, liver disease, nausea, vomiting and ETOH >2 drinks/day. : Negative for: dysuria, frequent urination, hematuria, nephrolithiasis and renal failure. Endocrine: Positive for: diabetes mellitus and hypothyroidism. Negative for: hyperthyroidism and steroid for chronic problem. Hematology: No history of bleeding or clotting disorder. Patient is not taking anti-coagulation or platelet medications. No history of hematological symptoms or problems. 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 Musculoskeletal: See HPI. Skin: Negative for lesions, rash and itching. PAST MEDICAL HISTORY Diagnosis Date Class 2 obesity due to excess calories without serious comorbidity with body mass index (BMI) of 36.0 to 36.9 in adult 12/14/2023 AVELINA (obstructive sleep apnea) 12/14/2023 Other specified hypothyroidism 12/14/2023 Primary hypertension 12/14/2023 Type 2 diabetes mellitus without complication, without long-term current use of insulin (HCC) 12/14/2023 PAST SURGICAL HISTORY Procedure Laterality Date PAST SURGICAL HISTORY OF 10/2023 melanoma excision from nose PAST SURGICAL HISTORY OF 2007 lithotripsy for kidney stones REMV CATARACT EXTRACAP,INSERT LENS SHOULDER SURGERY HX 1989 TONSILLECTOMY HX as a child FAMILY HISTORY Problem Relation Age of Onset Anesthesia Problems No Family History Social History Tobacco Use Smoking status: Never Substance Use Topics Alcohol use: Yes Comment: maybe 1 drink per week Drug use: No Prior to Admission medications as of 12/14/23 1105 Medication Sig Last Dose Taking metFORMIN ER (GLUCOPHAGE XR) 500 mg 24 hr tablet Take 500 mg by mouth two times a day. 2 tablets in the morning and 2 in the evening Taking Yes atorvastatin (LIPITOR) 10 mg tablet Take 10 mg by mouth once daily. Taking Yes levothyroxine (SYNTHROID) 75 mcg tablet Take 1 tablet by mouth every afternoon. Taking Yes Losartan-Hydrochlorothiazide 100-12.5 mg per tablet Take 1 tablet by mouth once daily. Taking Yes metoprolol succinate XL, long acting, (TOPROL XL) 100 mg Tb24 Take 100 mg by mouth. Taking Yes allopurinol 300 mg tablet Take 300 mg by mouth once daily. Taking Yes No medication comments found. ALLERGIES No Known Allergies Objective PHYSICAL EXAM: (if completed, exam performed via video enabled technology) General: alert and oriented, healthy appearance and obese. Pertinent negatives noted - not distressed. Skin: normal color, no rash or lesions. HEENT: EOM intact and pupils equal round. Throat; Moist mucous membranes . Neck; Full ROM . Cardiovascular: Self palpated radial pulse, regular when counted aloud by patient. Respiratory: breathing non-labored. Abdomen: Not examined . Extremities: Patient reports no swelling . Neurological: normal cognition and motor skills. No obvious deficits . PAIN ASSESSMENT: VITALS: Ht 5' 7 (1.70m) Wt 235 lb (106.6kg) BMI 36.80 kg/(m^2). Diagnostic tests reviewed for today's visit: Lab Value Units Date High Low HB No results within date range. HCT No results within date range. WBC No results within date range. PLT No results within date range. NA No results within date range. K No results within date range. GLUC No results within date range. BUN No results within date range. CREAT No results within date range. PTSEC No results within date range. INR No results within date range. APTT No results within date range. ALT No results within date range. AST No results within date range. TBILI No results within date range. TSH No results within date range. Lab Value Units Date High Low HCGQT No results within date range. UHCG No results within date range. HCG, BODY* No results within date range. Lab Value Units Date High Low ABORHD No results within date range. ABSCREEN No results within date range. No results found for: HBA1C No results found for this or any previous visit (from the past 8760 hour(s)). No results found for this or any previous visit (from the past 05410 hour(s)). Instructions Given to Patient: Instructions located in the after visit summary. Patient given verbal and written preop instructions and voices comprehension and compliance. SIGNATURE: Jean Pierre Hollis PA-C PATIENT NAME: Jocelyn Hussein DATE: December 14, 2023 TIME: 3:38 PM PAGER/CONTACT #: T [facility] 12-14-2023 History and physical note Images from the original note were not included. [facility] HISTORY AND PHYSICAL EXAMINATION SERVICE DATE: 12/14/2023 SERVICE TIME: 11:06 AM PRIMARY CARE PHYSICIAN: Casper Womack MD Assessment Patient has the following medical conditions which may affect es-operative course: Primary hypertension -on Losartan-HCTZ and Metoprolol -does not check BP at home Type 2 diabetes mellitus without complication, without long-term current use of insulin (HCC) -on Metformin -last A1c 6.0% per patient in 08/2023 -FBS ~130 AVELINA (obstructive sleep apnea) -compliant with CPAP Class 2 obesity due to excess calories without serious comorbidity with body mass index (BMI) of 36.0 to 36.9 in adult -BMI 36.81 Other specified hypothyroidism -on Levothyroxine Koenig Activity Status Index: METS: Walk indoors, such as around the house (1.75 METs) Do light work around the house, such as dusting or washing dishes (2.70 METs) Take care of self; that is eating, dressing, bathing, using the toilet (2.75 METs) Walk a block or two on level ground (2.75 METs) Climb a flight of stairs or walk up a hill (5.50 METs) DASI Score: 15.45 (Activity currently limited by back/hip pain ) Patient denies any chest pain or undue shortness of breath with the above physical activity. Clinical Frailty Scale: 3. Well, with treated comorbid disease STOP-Bang Score: STOP-Bang Score: 0 (Diagnosed with AVELINA, compliant with CPAP ) ANESTHESIA FINDINGS: Intubation History: No history of difficult intubation Significant Anesthesia Considerations: none Airway History: No history of difficult airway I - PHYSICAL EVALUATION AIRWAY Patient intubated: No. Mallampati: III. TM distance: >3 FB. Neck ROM: full ROM without neurological symptoms. Mouth opening: adequate. Short neck: yes. Thick neck: yes Dewitt present: no Lip Bite Test: I Microretrognathia/Micronagthia/ Recessed Chin: No DENTAL Dental findings: teeth intact. II - ANESTHESIA PLAN Anesthetic plan additional comments: *[facility]I - anesthesia choice. Beta Smooth Monitoring Plan Post Procedure Analgesic Plan PLAN This patient is optimally prepared for surgery. CONSULTS: Patient does not require consults for optimization at this time. The Following Tests/Procedures Have Been Initiated: Labs not indicated per [facility] protocol, EKG not indicated per [facility] protocol Planned Anesthetic: Per anesthesia choice This is a virtual visit using alternative video platform. It required patient-provider interaction for the medical decision making as documented below. REASON FOR VISIT: Jocelyn Hussein is a 68 year old male who is scheduled for MRI under [facility] at the request of Dr. Shivani Limon for consultation. My final recommendation will be communicated back to the requesting physician by way of shared medical record or letter. Subjective The patient has the following: COVID-19 Immunization Status Overdue - Covid-19 Vaccine ( season) Overdue since 10/23/2023 02/01/2022 Imm Admin: COVID-19 vaccine, age 12+ yr, bivalent (PFIZER-BIONTECH) 12/16/2020 Imm Admin: COVID-19 original vaccine, age 12+ yr, monovalent (PFIZER-BIONTECH - PURPLE TOP) 04/25/2020 Imm Admin: COVID-19 original vaccine, age 12+ yr, monovalent (PFIZER-BIONTECH - PURPLE TOP) Only the first 3 history entries have been loaded, but more history exists. CHIEF COMPLAINT: Back pain with sciatica HPI: Jocelyn Hussein is a 68 year old male who presents to [facility] today for preop exam. Patient is scheduled for the above procedure on 12/20/23. Patient has been having back pain and sciatica for the past several months. He states it has been getting progressively worse and has begun to affect his activity levels. He has claustrophobia and elects to have MRI under [facility]. Denies fevers, chills, chest pain, and SOB. This is a virtual visit. The visit was conducted using alternative video platform. It required patient-provider interaction for the medical decision making as documented below. I have communicated my name and active licensure. The patient's identity and physical location were verified at the time of this visit. Either the patient or their legal customer account representative has been informed of the risks and benefits of and alternatives to treatment through a remote evaluation and consents to proceed with the evaluation remotely. REVIEW OF SYSTEMS: General: No weight loss, malaise or fevers. Neurological: Negative for: headaches, impaired sensorium, seizures, TIA and strokes. Respiratory: Positive for: obstructive sleep apnea. Negative for: asthma, COPD, current cough, dyspnea, pneumonia within 6 weeks, tobacco use and URI < 2 weeks. Cardiovascular: Positive for: hyperlipidemia and hypertension Negative for: angina, anticoagulation therapy, arrhythmia, CAD, chest pain, CHF, congenital heart defect, DVT/PE, murmur/valvular heart disease and PVD. GI: Negative for: abdominal pain, GERD, liver disease, nausea, vomiting and ETOH >2 drinks/day. : Negative for: dysuria, frequent urination, hematuria, nephrolithiasis and renal failure. Endocrine: Positive for: diabetes mellitus and hypothyroidism. Negative for: hyperthyroidism and steroid for chronic problem. Hematology: No history of bleeding or clotting disorder. Patient is not taking anti-coagulation or platelet medications. No history of hematological symptoms or problems. 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 Musculoskeletal: See HPI. Skin: Negative for lesions, rash and itching. PAST MEDICAL HISTORY Diagnosis Date Class 2 obesity due to excess calories without serious comorbidity with body mass index (BMI) of 36.0 to 36.9 in adult 12/14/2023 AVELINA (obstructive sleep apnea) 12/14/2023 Other specified hypothyroidism 12/14/2023 Primary hypertension 12/14/2023 Type 2 diabetes mellitus without complication, without long-term current use of insulin (HCC) 12/14/2023 PAST SURGICAL HISTORY Procedure Laterality Date PAST SURGICAL HISTORY OF 10/2023 melanoma excision from nose PAST SURGICAL HISTORY OF 2007 lithotripsy for kidney stones REMV CATARACT EXTRACAP,INSERT LENS SHOULDER SURGERY HX 1989 TONSILLECTOMY HX as a child FAMILY HISTORY Problem Relation Age of Onset Anesthesia Problems No Family History Social History Tobacco Use Smoking status: Never Substance Use Topics Alcohol use: Yes Comment: maybe 1 drink per week Drug use: No Prior to Admission medications as of 12/14/23 1105 Medication Sig Last Dose Taking metFORMIN ER (GLUCOPHAGE XR) 500 mg 24 hr tablet Take 500 mg by mouth two times a day. 2 tablets in the morning and 2 in the evening Taking Yes atorvastatin (LIPITOR) 10 mg tablet Take 10 mg by mouth once daily. Taking Yes levothyroxine (SYNTHROID) 75 mcg tablet Take 1 tablet by mouth every afternoon. Taking Yes Losartan-Hydrochlorothiazide 100-12.5 mg per tablet Take 1 tablet by mouth once daily. Taking Yes metoprolol succinate XL, long acting, (TOPROL XL) 100 mg Tb24 Take 100 mg by mouth. Taking Yes allopurinol 300 mg tablet Take 300 mg by mouth once daily. Taking Yes No medication comments found. ALLERGIES No Known Allergies Objective PHYSICAL EXAM: (if completed, exam performed via video enabled technology) General: alert and oriented, healthy appearance and obese. Pertinent negatives noted - not distressed. Skin: normal color, no rash or lesions. HEENT: EOM intact and pupils equal round. Throat; Moist mucous membranes . Neck; Full ROM . Cardiovascular: Self palpated radial pulse, regular when counted aloud by patient. Respiratory: breathing non-labored. Abdomen: Not examined . Extremities: Patient reports no swelling . Neurological: normal cognition and motor skills. No obvious deficits . PAIN ASSESSMENT: VITALS: Ht 5' 7 (1.70m) Wt 235 lb (106.6kg) BMI 36.80 kg/(m^2). Diagnostic tests reviewed for today's visit: Lab Value Units Date High Low HB No results within date range. HCT No results within date range. WBC No results within date range. PLT No results within date range. NA No results within date range. K No results within date range. GLUC No results within date range. BUN No results within date range. CREAT No results within date range. PTSEC No results within date range. INR No results within date range. APTT No results within date range. ALT No results within date range. AST No results within date range. TBILI No results within date range. TSH No results within date range. Lab Value Units Date High Low HCGQT No results within date range. UHCG No results within date range. HCG, BODY* No results within date range. Lab Value Units Date High Low ABORHD No results within date range. ABSCREEN No results within date range. No results found for: HBA1C No results found for this or any previous visit (from the past 8760 hour(s)). No results found for this or any previous visit (from the past 06864 hour(s)). Instructions Given to Patient: Instructions located in the after visit summary. Patient given verbal and written preop instructions and voices comprehension and compliance. SIGNATURE: Jean Pierre Hollis PA-C PATIENT NAME: Jocelyn Hussein DATE: December 14, 2023 TIME: 3:38 PM PAGER/CONTACT #: documented in this encounter [facility] 12-07-2023 Telephone encounter Note Radiology Service Pre Anesthesia Telephone Call PATIENT NAME: Jocelyn Hussein DATE OF CALL: December 07, 2023 TIME: 4:01 PM PATIENT TYPE: Pt returned call. The pt was educated about anxiolysis. Pt reports that he is extremely claustrophobic and thought he would be under Gen A. Pt reports that anxiolysis will not help in his situation. Pt advised to call the ordering to discuss this and possible reschedule with Gen A. Pt reports that he has had lab work completed within the time frame for Gen A. All questions answered at this time. Pt verbalizes understanding. SIGNED BY: Amna Escalera RN December 07, 2023 4:01 PM [facility] 12-07-2023 Miscellaneous Notes Radiology Service Pre Anesthesia Telephone Call PATIENT NAME: Jocelyn Hussein DATE OF CALL: December 07, 2023 TIME: 4:01 PM PATIENT TYPE: Pt returned call. The pt was educated about anxiolysis. Pt reports that he is extremely claustrophobic and thought he would be under Gen A. Pt reports that anxiolysis will not help in his situation. Pt advised to call the ordering to discuss this and possible reschedule with Gen A. Pt reports that he has had lab work completed within the time frame for Gen A. All questions answered at this time. Pt verbalizes understanding. SIGNED BY: Amna Escalera RN December 07, 2023 4:01 PM documented in this encounter [facility] 12-07-2023 Telephone encounter Note Radiology Service Pre Anesthesia Telephone Call PATIENT NAME: Jocelyn Hussein DATE OF CALL: December 07, 2023 TIME: 3:50 PM PATIENT TYPE: Pt returned call. Pt reports that he will not be able to be scanned with anxiolysis. Pt is extremely claustrophobic and would need anesthesia . Pt advised to notify ordering PCP about this. SIGNED BY: Amna Escalera RN December 07, 2023 3:50 PM [facility] 12-07-2023 Miscellaneous Notes Radiology Service Pre Anesthesia Telephone Call PATIENT NAME: Jocelyn Hussein DATE OF CALL: December 07, 2023 TIME: 3:50 PM PATIENT TYPE: Pt returned call. Pt reports that he will not be able to be scanned with anxiolysis. Pt is extremely claustrophobic and would need anesthesia . Pt advised to notify ordering PCP about this. SIGNED BY: Amna Escaelra RN December 07, 2023 3:50 PM documented in this encounter [facility] 12-07-2023 Telephone encounter Note Radiology Service Pre Anesthesia Telephone Call PATIENT NAME: Jocelyn Hussein DATE OF CALL: December 07, 2023 TIME: 12:13 PM PATIENT TYPE: This nurse called the pt to offer education about anxiolysis but there was no answer so a detailed message was left along with a call back number. SIGNED BY: Amna Escalera RN December 07, 2023 12:13 PM [facility] 12-07-2023 Miscellaneous Notes Radiology Service Pre Anesthesia Telephone Call PATIENT NAME: Jocelyn Hussein DATE OF CALL: December 07, 2023 TIME: 12:13 PM PATIENT TYPE: This nurse called the pt to offer education about anxiolysis but there was no answer so a detailed message was left along with a call back number. SIGNED BY: Amna Escalera RN December 07, 2023 12:13 PM documented in this encounter [facility] 10-11-2023 Note Patient Education Cardiovascular Hypertension, Adult High blood pressure (hypertension) is when the force of blood pumping through the arteries is too strong. The arteries are the blood vessels that carry blood from the heart throughout the body. Hypertension forces the heart to work harder to pump blood and may cause arteries to become narrow or stiff. Untreated or uncontrolled hypertension can lead to a heart attack, heart failure, a stroke, kidney disease, and other problems. A blood pressure reading consists of a higher number over a lower number. Ideally, your blood pressure should be below 120/80. The first ( top ) number is called the systolic pressure. It is a measure of the pressure in your arteries as your heart beats. The second ( bottom ) number is called the diastolic pressure. It is a measure of the pressure in your arteries as the heart relaxes. What are the causes? The exact cause of this condition is not known. There are some conditions that result in high blood pressure. What increases the risk? Certain factors may make you more likely to develop high blood pressure. Some of these risk factors are under your control, including: ? Smoking. ? Not getting enough exercise or physical activity. ? Being overweight. ? Having too much fat, sugar, calories, or salt (sodium) in your diet. ? Drinking too much alcohol. Other risk factors include: ? Having a personal history of heart disease, diabetes, high cholesterol, or kidney disease. ? Stress. ? Having a family history of high blood pressure and high cholesterol. ? Having obstructive sleep apnea. ? Age. The risk increases with age. What are the signs or symptoms? High blood pressure may not cause symptoms. Very high blood pressure (hypertensive crisis) may cause: ? Headache. ? Fast or irregular heartbeats (palpitations). ? Shortness of breath. ? Nosebleed. ? Nausea and vomiting. ? Vision changes. ? Severe chest pain, dizziness, and seizures. How is this diagnosed? This condition is diagnosed by measuring your blood pressure while you are seated, with your arm resting on a flat surface, your legs uncrossed, and your feet flat on the floor. The cuff of the blood pressure monitor will be placed directly against the skin of your upper arm at the level of your heart. Blood pressure should be measured at least twice using the same arm. Certain conditions can cause a difference in blood pressure between your right and left arms. If you have a high blood pressure reading during one visit or you have normal blood pressure with other risk factors, you may be asked to: ? Return on a different day to have your blood pressure checked again. ? Monitor your blood pressure at home for 1 week or longer. If you are diagnosed with hypertension, you may have other blood or imaging tests to help your health care provider understand your overall risk for other conditions. How is this treated? This condition is treated by making healthy lifestyle changes, such as eating healthy foods, exercising more, and reducing your alcohol intake. You may be referred for counseling on a healthy diet and physical activity. Your health care provider may prescribe medicine if lifestyle changes are not enough to get your blood pressure under control and if: ? Your systolic blood pressure is above 130. ? Your diastolic blood pressure is above 80. Your personal target blood pressure may vary depending on your medical conditions, your age, and other factors. Follow these instructions at home: Eating and drinking ? Eat a diet that is high in fiber and potassium, and low in sodium, added sugar, and fat. An example of this eating plan is called the DASH diet. DASH stands for Dietary Approaches to Stop Hypertension. To eat this way: ? Eat plenty of fresh fruits and vegetables. Try to fill one half of your plate at each meal with fruits and vegetables. ? Eat whole grains, such as whole-wheat pasta, brown rice, or whole-grain bread. Fill about one fourth of your plate with whole grains. ? Eat or drink low-fat dairy products, such as skim milk or low-fat yogurt. ? Avoid fatty cuts of meat, processed or cured meats, and poultry with skin. Fill about one fourth of your plate with lean proteins, such as fish, chicken without skin, beans, eggs, or tofu. ? Avoid pre-made and processed foods. These tend to be higher in sodium, added sugar, and fat. ? Reduce your daily sodium intake. Many people with hypertension should eat less than 1,500 mg of sodium a day. ? Do not drink alcohol if: ? Your health care provider tells you not to drink. ? You are , may be , or are planning to become . ? If you drink alcohol: ? Limit how much you have to: ? 0?1 drink a day for women. ? 0?2 drinks a day for men. ? Know how much alcohol is in your drink. In the [place] one drink equals one 12 oz bottle of beer (355 mL), one 5 oz glass of wine (148 mL), (more content not included)... [facility] 09-06-2023 Note Patient Education BMI for Adults What is BMI? Body [...] numbers. This can be done either in Indian ([place] or metric measurements. Note that charts and online BMI calculators are available to help you find your BMI quickly and easily without having to do these calculations yourself. To calculate your BMI in Indian ([place] measurements: 1. Measure your weight in [...] for Disease Control and Prevention: www.cdc.gov ? [place] [employer]: www.heart.org ? National Heart, Lung, and Blood [place]: www.nhlbi.nih.gov Summary ? Body mass index (BMI) is a number that is calculated from a person's weight and height. ? BMI may help estimate how much of a person's weight is composed of fat. BMI can help identify those who may be at higher risk for certain medical problems. ? BMI can be measured using Indian measurements or metric measurements. ? BMI charts are used to identify whether you are underweight, normal weight, overweight, or obese. This information is not intended to replace advice given to you by your health care provider. Make sure you discuss any questions you have with your health care provider. Document Revised: 10/31/2019 Document Reviewed: 09/07/2019 [employer] Patient Education ? 2022 [employer] Nutrition BMI for Adults What is BMI? [...] is useful for: ? Identifying a weight (more content not included)... [facility] 01-27-2022 Note OPERATIVE NOTE OPERATION DATE: 01/27/2022 PREOPERATIVE DIAGNOSIS: Colorectal screening. POSTOPERATIVE DIAGNOSIS: Normal colonoscopy to cecum. PROCEDURE: Colonoscopy to cecum. SURGEON: Stephanie Mathews M.D. ANESTHESIA: Monitored anesthesia care. ESTIMATED BLOOD [...] to recovery room in good condition. CC: Casper Womack M.D. [facility] Evaluation + Plan note No data available for this section General Surgery [facility] Evaluation + Plan note Future Appointments Appointment Date:12/24/2022 08:00:00 AM Scheduled Provider: Location:[facility] Appointment Type: Medicare Wellness Subsequent Appointment Date:12/30/2022 03:20:00 PM Scheduled Provider:Shivani Limon MD Location:[facility] Appointment Type: Open [facility] Evaluation + Plan note Future Appointments Appointment Date:06/23/2023 08:00:00 AM Scheduled Provider:Shivani Limon MD Location:[facility] [place] Appointment Type:FM Open Appointment Date:01/09/2024 08:00:00 AM Scheduled Provider: Location:[facility] Appointment Type: Medicare Wellness Subsequent Future Scheduled TestsNM Myocardial Spect Rest/Stress 1 Day 12/30/22 [facility] [place] Evaluation + Plan note Future Appointments Appointment Date:01/09/2024 08:00:00 AM Scheduled Provider: [facility] App[facility] Type: Medicare Wellness Subsequent Appointment Date:01/09/2024 08:45:00 AM Scheduled Provider:Shivani Limon MD Location:[facility] Appointment Type: Open Future Scheduled TestsNM Myocardial Spect Rest/Stress 1 Day 12/30/22 [facility] Evaluation + Plan note Future Appointments Appointment Date:10/13/2023 10:40:00 AM Scheduled Provider: Location:[facility] Appointment Type: Lab Draw Appointment Date:01/09/2024 08:00:00 AM Scheduled Provider: Location:[facility] Appointment Type: Medicare Wellness Subsequent Appointment Date:01/09/2024 08:45:00 AM Scheduled Provider:Shivani Limon MD Location:[facility] Appointment Type: Open Diagnostic Tests PendingUrine Culture 10/12/23 Future Scheduled TestsUA with Cult Rflx 10/11/[id number] 10/11/23NM Myocardial Spect Rest/Stress 1 Day 12/30/22 [facility] Evaluation note No assessment inform ation available [facility] Work Phone: Evaluation note Diagnosis Pre-op evaluation- Primary Preoperative examination, unspecified Primary hypertension Unspecified essential hypertension Type 2 diabetes mellitus without complication, without long-term current use of insulin (HCC) AVELINA (obstructive sleep apnea) Obstructive sleep apnea (adult) (pediatric) Class 2 obesity due to excess calories without serious comorbidity with body mass index (BMI) of 36.0 to 36.9 in adult Other specified hypothyroidism * Assessment & Plan Note - Jean Pierre Hollis PA-C - 12/14/2023 11:33 AM EDT Associated Problem(s): Other specified hypothyroidism -on Levothyroxine * Assessment & Plan Note - Jean Pierre Hollis PA-C - 12/14/2023 11:32 AM EDT Associated Problem(s): Class 2 obesity due to excess calories without serious comorbidity with bodymass index (BMI) of 36.0 to 36.9 in adult -BMI 36.81 * Assessment & Plan Note - Jean Pierre Hollis PA-C - 12/14/2023 11:32 AM EDT Associated Problem(s): AVELINA (obstructive sleep apnea) -compliant with CPAP * Assessment & Plan Note - Jean Pierre Hollis PA-C - 12/14/2023 11:32 AM EDT Associated Problem(s): Type 2 diabetes mellitus without complication, without long-term current useof insulin (HCC) -on Metformin -last A1c 6.0% per patient in 08/2023 -FBS ~130 * Assessment & Plan Note - Jean Pierre Hollis PA-C - 12/14/2023 11:31 AM EDT Associated Problem(s): Primary hypertension -on Losartan-HCTZ and Metoprolol -does not check BP at home [facility] Diagnosis Skin cancer of nose- Primary Other malignant neoplasm of skin of other and unspecified parts of face [facility] No data available for this section General Surgery [facility] Discharge instructions Additional Instructions 1. Sleep on 2 pillows 2. Small amount of Vaseline to sutures twice daily 3. Okay to shower late tomorrow morning, keep wound dry and clean 3. Take antibiotic as prescribed 4. Tylenol or Motrin for discomfort 6. See Dr. Power in [facility] Work Phone: Progress note No data available for this section General Surgery [facility] Summary Purpose Family History No Family History Records Found Relationship Condition Age at Onset Recorded Date/T nereida father Heart problem Unknown Myocardial infarction Unknown mother Diabetes mellitus Unknown brother Diabetes mellitus Unknown Advance Directives No Advanced Directives Records Found Advance Directive Response Recorded Date/ Time Advance Directives No October 7:04am Chief Complaint and Reason for Visit Chief Complaint Melanoma Insitu Nose Chief Complaint Melanoma Insitu Nose Melanoma Insitu Nose Additional Source Comments Patient Care team informatio n (unrecognized section and content) Team Status: Active Member Role Status Dates Shivani Limon MD Primary Care Provider Active Team Status: Inactive Member Role Status Dates Hugo Power DO Attending Provider Active S tart: November 01, 2023 End: November 01, 2023 Shivani Limon MD Primary Care Provider Active Start: November 01, 2023 End: November 01, 2023 Team Status: Inactive Member Role Status Dates Hugo Power DO Attending Provider Active S tart: November 04, 2023 End: November 04, 2023 Shivani Limon MD Primary Care Provider Active Start: November 04, 2023 End: November 04, 2023 Import/Export Specialist Relationship Specialty Start Date End Date Casper Womack MD [address] [place] [address] PCP - General 06/01/00 Import/Export Specialist Relationship Specialty Start Date End Date Casper Womack MD [address] [place] [address] PCP - General 06/01/00 Shivani Limon MD [address] [place] [id number] Referring Family Medicine 12/13/23 Import/Export Specialist Relationship Specialty Start Date End Date Shivani Limon MD [address] [place] [address] PCP - General Family Medicine 12/15/23 Shivani Limon MD [address] [place] [address] Referring Family Medicine 12/13/23 Import/Export Specialist Relationship Specialty Start Date End Date Shivani Limon MD [address] [place] [address] PCP - General Family Medicine 12/15/23 Shivani Limon MD [address] [place] [address] Referring Family Medicine 12/13/23 Import/Export Specialist Relationship Specialty Start Date End Date Shivani Limon MD [address] [place] [address] PCP - General Family Medicine 12/15/23 Shivani Limon MD [address] [place] [address] Referring Family Medicine 12/13/23 Import/Export Specialist Relationship Specialty Start Date End Date Shivani Limon MD [address] [place] [address] PCP - General Family Medicine 12/15/23 Shivani Limon MD [address] [place] [address] Referring Family Medicine 12/13/23 Import/Export Specialist Relationship Specialty Start Date End Date Shivani Limon MD [address] [place], [place] [id number] PCP - General Family Medicine 12/15/23 Shivani Limon MD [address] [place] [address] Referring Family Medicine 12/13/23 Import/Export Specialist Relationship Specialty Start Date End Date Shivani Limon MD [address] [place], [place] [id number] PCP - General Family Medicine 10/31/23 Nancy Deluca PA [address] [place] [address] Physician [facility] 11/16/23 Hugo Power DO [address] [place] [address] Otolaryngology 11/16/23 Import/Export Specialist Relationship Specialty Start Date End Date Shivani Limon MD [address] [place] [address] PCP - General Family Medicine 10/31/23 Nancy Deluca PA [address] [place] [id number] Physician [facility] Dermatology 11/16/23 Hugo Power DO [address] [place] [address] Otolaryngology 11/16/23 (unrecognized sect ion and content) No Status Records FoundNo Status Records FoundNo Status Records FoundNo Status Records FoundNo Status Records FoundNo Status Records FoundNo Status Records FoundNo Status Records FoundNo Status Records FoundNo Status Records Found INFORMATION SOURCE (unrecogn ized section and content) DATE CREATED AUTHOR 06/10/2022 [facility] DATE CREATED AUTHOR AUTHOR'S ORGANIZ ATION 10/14/2023 [facility] DATE CREATED AUTHOR AUTHOR'S ORGANIZ ATION 10/15/2023 [facility] DATE CREATED AUTHOR AUTHOR'S ORGANIZ ATION 10/16/2023 [facility] DATE CREATED AUTHOR AUTHOR'S ORGANIZ ATION 11/12/2023 [facility] DATE CREATED AUTHOR AUTHOR'S ORGANIZ ATION 12/18/2023 [facility] DATE CREATED AUTHOR AUTHOR'S ORGANIZ ATION 12/20/2023 [facility] DATE CREATED AUTHOR AUTHOR'S ORGANIZ ATION 12/21/2023 [facility] DATE CREATED AUTHOR AUTHOR'S ORGANIZ ATION 12/23/2023 [facility] EPIC DATE CREATED AUTHOR AUTHOR'S ORGANIZ ATION 12/24/2023 Moshannon Kit [facility] ical Center Goals (unrecognized section and content) Goals may be documented in a n alternate section Source Comments (unrecognize d section and content) In the event this informatio n is protected by the Federal Confidentiality of Alcohol and Drug Abuse Patient Records regulations: The Federal rules restrict any use of the information to criminally investigate or prosecute any alcohol or drug abuse patient.[facility] [place] [place] event this information is protected by the Federal Confidentiality of Alcohol and Drug Abuse Patient Records regulations: The Federal rules restrict any use of the information to criminally investigate or prosecute any alcohol or drug abuse patient.[facility] [place] the event this information is protected by the Federal Confidentiality of Alcohol and Drug Abuse Patient Records regulations: The Federal rules restrict any use of the information to criminally investigate or prosecute any alcohol or drug abuse patient.[facility] [place] the event this information is protected by the Federal Confidentiality of Alcohol and Drug Abuse Patient Records regulations: The Federal rules restrict any use of the information to criminally investigate or prosecute any alcohol or drug abuse patient.[facility] [place] the event this information is protected by the Federal Confidentiality of Alcohol and Drug Abuse Patient Records regulations: The Federal rules restrict any use of the information to criminally investigate or prosecute any alcohol or drug abuse patient.[facility] [place] the event this information is protected by the Federal Confidentiality of Alcohol and Drug Abuse Patient Records regulations: The Federal rules restrict any use of the information to criminally investigate or prosecute any alcohol or drug abuse patient.[facility] [place] the event this information is protected by the Federal Confidentiality of Alcohol and Drug Abuse Patient Records regulations: The Federal rules restrict any use of the information to criminally investigate or prosecute any alcohol or drug abuse patient.[facility] [place] the event this information is protected by the Federal Confidentiality of Alcohol and Drug Abuse Patient Records regulations: The Federal rules restrict any use of the information to criminally investigate or prosecute any alcohol or drug abuse patient.[facility] [place] the event this information is protected by the Federal Confidentiality of Alcohol and Drug Abuse Patient Records regulations: The Federal rules restrict any use of the information to criminally investigate or prosecute any alcohol or drug abuse patient.[facility] Reason for Visit (unrecogniz ed section and content) Reason Comments Appointment Anxiolysis Education Reason Comments Returning Patient's Call Reason Comments MRI Appointment Reason Comments Radiology Pre Procedure Instructions Reason Comments Cancer 1 month recheck wide exc melanoma nose FOR RECORDS PERTAINING TO PATIENTS WHO ARE [...] BE BASED ON THE PRIMARY CLINICAL RECORDS. [employer] provides no warranty or guarantee of the accuracy or completeness of information in this document.
[2023-12-26 11:24] LABS: Alanine Aminotransferase 33 U/L (16-63); Albumin Globulin Ratio 1.1; Albumin Level 4.1 g/dL (3.4-5.0); Alkaline Phosphatase 82 U/L (46-116); Anion Gap 18.3; Aspartate Amino Transferase 32 U/L (15-37); BUN Creatinine Ratio 15.2; Bilirubin Total 0.6 mg/dL (0.2-1.0); Calcium 9.7 mg/dL (8.5-10.1); Carbon Dioxide 24.6 mmol/L (21.0-32.0); Chloride 104 mmol/L (98-107); Estimated GFR (African America >60 (>=60 mL/min/1.73m^2); Estimated GFR (Non-African Ame 54 (>=60 mL/min/1.73m^2); Globulin 3.8 g/dL; Glucose 140 mg/dL (74-106); INR 0.97; Partial Thromboplastin Time 20.8 sec (22.3-36.2); Potassium 4.9 mmol/L (3.5-5.1); Prothrombin Time 10.3 sec (9.0-11.6); Sodium 142 mmol/L (136-145); Total Protein 7.9 g/dL (6.4-8.2); Troponin I High Sensitivity 7.5 pg/mL (4.0-76.1)
[2023-12-26 11:29] LABS: Lactate/Lactic Acid 2.9 mmol/L (0.4-2.0)
[2023-12-26 12:21] LABS: Basophils Percent Auto 0.3 % (0.2-2.0); Eosinophils Absolute Auto 0.2 10^3/uL (0.0-0.7); Eosinophils Percent Auto 1.3 % (0.9-7.0); Hematocrit 39.9 % (42.0-54.0); Hemoglobin 13.5 g/dL (14.0-18.0); Immature Granulocytes Abs Auto 0.12 10^3/uL (0.00-0.03); Immature Granulocytes Pct Auto 0.9 % (0.0-0.5); Lymphocytes Absolute Auto 1.2 10^3/uL (1.2-3.8); Lymphocytes Percent Auto 8.6 % (20.5-60.0); Mean Corpuscular HGB Conc 33.8 g/dL (29.9-35.2); Mean Corpuscular Hemoglobin 31.8 pg (25.9-34.0); Mean Corpuscular Volume 93.9 fL (80.0-94.0); Mean Platelet Volume 8.8 fL (9.5-13.5); Monocytes Absolute Auto 1.1 10^3/uL (0.3-0.8); Monocytes Percent Auto 8.4 % (1.7-12.0); Neutrophils Absolute Auto 10.9 10^3/uL (1.4-6.5); Neutrophils Percent Auto 80.5 % (43.0-75.0); Platelet Count 229 10^3/uL (150-450); Red Blood Count 4.25 10^6/uL (4.70-6.10); Red Cell Distribution Width 12.9 % (11.0-15.0); White Blood Count 13.6 10^3/uL (4.0-11.0)
[2023-12-26 14:15] LABS: Lactate/Lactic Acid 1.7 mmol/L (0.4-2.0)
[2023-12-26 15:36] LABS: Bilirubin Urine NEGATIVE (NEGATIVE); Blood Urine NEGATIVE (NEGATIVE); Clarity Urine CLEAR (CLEAR); Color Urine LT. YELLOW (YELLOW); Glucose Urine UA NEGATIVE (NEGATIVE); Ketones Urine NEGATIVE (NEGATIVE); Leukocyte Esterase Urine NEGATIVE (NEGATIVE); Nitrite Urine NEGATIVE (NEGATIVE); Protein Urine TRACE mg/dL (NEG/TRACE); Specific Gravity Urine 1.015 (1.005-1.025); Urobilinogen Urine 0.2 EU/dL (0.2-1.0)
[2023-12-26 15:37] LABS: Urine Microscopic Indicated NO
[2023-12-26] MEDS: OXYCODONE HCL/ACETAMINOPHEN 5MG/325MG 1 TAB PO (15:43)
--- NOTE | 2023-12-26 15:49 | CT_ITS ---
The [address] [address] Patient Name: JOCELYN HUSSEIN MRN: [id number] date: 1955 Sex: M Assigned Patient Location: ER Current Patient Location: ER Accession/Order Number: [id number] Exam Date: 12/26/2023 16:00 Report Date: 12/26/2023 17:15 At the request of: VINCENZO BUSH Procedure: CT head/brain wo con CT head/brain wo con, 12/26/2023 4:00 PM EST INDICATION: repeat for brain bleed stability COMPARISON: Prior CT of the head dated 12/26/[address] of the head dated 06/13/2019 TECHNIQUE: Axial CT images of the brain from skull base to vertex, including portions of the face and sinuses, were obtained without contrast . Multiplanar reformatted images were generated and reviewed as needed. Dose reduction techniques were achieved by using automated exposure control and/or adjustment of mA and/or kV according to patient size and/or use of iterative reconstruction technique. FINDINGS: Minimal interval enlargement in the right occipital contusion/subarachnoid hemorrhage now measuring approximately 7.8 x 7 mm from 6.5 x 5 mm in prior study (AP, transverse). It is less dense than the prior study. The cerebral sulci as well as ventricular system are appropriate for age. There is no intracranial mass, mass effect, midline shift, intra or extra-axial fluid collection. There is persistent septum pellucidum and vergae. Periventricular and centrum semiovale hypodensities are most likely consistent with microvascular ischemic changes. The visualized portions of orbits, mastoid air cells as well as paranasal sinuses are unremarkable. There is no suspicious osteolytic or osteoblastic lesion. CT/CT head/brain wo con IMPRESSION: Mild interval increase in size of the right occipital contusion/subarachnoid hemorrhage. It is less dense than prior study. These findings might be due to redistribution of blood. No new hemorrhage is noted. Continued follow-up is recommended. Electronically authenticated by: ANTONIO SHEPPARD Date: 12/26/2023 17:15
--- NOTE | 2023-12-26 18:50 | PC.NURSE ---
pt ambulated to and from restroom with 1 assist by this Rn and use of personal cane. states soreness. pt steady with ambulation. denies dizziness.
[2023-12-26] MEDS: OXYCODONE HCL 5 MG TABLET PO (18:54)
--- NOTE | 2023-12-26 18:57 | PC.NURSE ---
pt denies needs prior to transfer. pt updated on RM number over at [facility] and verbalizes understanding.
== END 2023-12-26 19:00 | disposition short-term general hospital (02) ==
PROVIDERS: Emergency Provider Student in an Organized Health Care Education/Training Program; PCP Family Medicine
DX: S09.8XXA Other specified injuries of head, initial encounter (principal); S00.01XA Abrasion of scalp, initial encounter; T14.8XXA Other injury of unspecified body region, initial encounter; S06.6XAA Traumatic subarachnoid hemorrhage with loss of consciousness status unknown, initial encounter; V43.52XA Car driver injured in collision with other type car in traffic accident, initial encounter
CPT/HCPCS: 36415; 70450; 71260; 72125; 72128; 72131; 73564; 74177; 80053; 81003; 83605; 83690; 84484; 85025; 85610; 85730; 93005; 99285; Q9967

== ENCOUNTER 2024-01-02 13:29 | Outpatient (OUT) | payer MEDICARE, OTHER, SELFPAY ==
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
== END 2024-01-02 13:30 | disposition home or self-care (01) ==
LOC: PM 13:29
PROVIDERS: PCP Family Medicine; Visit Provider Anesthesiology
DX: M47.816 Spondylosis without myelopathy or radiculopathy, lumbar region (principal); M48.062 Spinal stenosis, lumbar region with neurogenic claudication
CPT/HCPCS: G0463

== ENCOUNTER 2024-01-16 08:50 | Day surgery (SDC) | payer MEDICARE, OTHER, SELFPAY ==
[2024-01-16 09:21] LABS: Glucometer 138 mg/dL (74-106)
[2024-01-16 09:23] VITALS: BP 191/92; PULSE 84; TEMP 37; O2SAT 98
[2024-01-16 09:52] VITALS: BP 216/115; PULSE 84; O2SAT 97
[2024-01-16 09:56] VITALS: BP 196/103; PULSE 80; O2SAT 97
--- NOTE | 2024-01-16 09:57 | W.PM.PROCNOT ---
Date of procedure: 01/16/24 Pre-op diagnosis: Pain due to lumbar spondylosis without myelopathy Post-op diagnosis: same as pre-op Procedure: Procedure: Bilateral L4-5, L5-S1 medial branch block Medications: Bupivacaine 0.25% 6cc The patient was seen and examined in the preoperative holding area.? An informed consent was obtained and placed on the chart.? The patient was brought to the medical procedure unit and placed in the prone position.? A timeout was completed verifying correct patient, procedure site, positioning, plan, and special equipment.? Using aseptic technique, the needle was placed at left L4. Under direct fluoroscopic visualization a Quincke-tipped spinal needle was advanced to the junction of the superior articulating process with the transverse process at the designated medial branch segment.? Preceded by negative aspiration, the above-mentioned injectate was placed in 1 mL aliquots.? The procedure was repeated at left L5, S1.? The needle was removed and insertion site was covered. The same procedure, at the same levels, was completed on the right side. The patient was taken to the postprocedural recovery area and monitored for an appropriate length of time before found suitable for discharge in the company of a responsible adult. Anesthesia: Local Surgeon: Delmy Weber Pathology: none sent Condition: stable Disposition: no change
[2024-01-16] MEDS: BUPIVACAINE HCL 0.25% PF 25 MG/10 ML VIAL 8 ML INJ (09:58)
[2024-01-16] MEDS: LIDOCAINE HCL 2% 400 MG/20 ML MDV INJ (09:58)
== END 2024-01-16 10:02 | disposition home or self-care (01) ==
LOC: SURGOUT 08:51
PROVIDERS: PCP Family Medicine; Visit Provider Anesthesiology
DX: M47.816 Spondylosis without myelopathy or radiculopathy, lumbar region (principal); E11.9 Type 2 diabetes mellitus without complications
CPT/HCPCS: 36415; 64493; 64494; 82948; J0665

== ENCOUNTER 2024-01-18 14:04 | Outpatient (OUT) | payer MEDICARE, OTHER, SELFPAY ==
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
== END 2024-01-18 14:05 | disposition home or self-care (01) ==
LOC: PM 14:04
PROVIDERS: PCP Family Medicine; Visit Provider Nurse Practitioner
DX: M46.1 Sacroiliitis, not elsewhere classified (principal); M48.062 Spinal stenosis, lumbar region with neurogenic claudication; M47.816 Spondylosis without myelopathy or radiculopathy, lumbar region
CPT/HCPCS: G0463

== ENCOUNTER 2024-01-30 09:24 | Day surgery (SDC) | payer MEDICARE, OTHER, SELFPAY ==
[2024-01-30 10:19] VITALS: BP 192/97; PULSE 79; TEMP 37.1; O2SAT 97
[2024-01-30 10:27] LABS: Glucometer 146 mg/dL (74-106)
[2024-01-30 10:53] VITALS: BP 199/112; PULSE 86; O2SAT 98
[2024-01-30 10:55] VITALS: BP 194/108; PULSE 98; O2SAT 96
--- NOTE | 2024-01-30 10:56 | W.PM.PROCNOT ---
Date of procedure: 01/30/24 Pre-op diagnosis: Pain due to left sacroiliitis Post-op diagnosis: same as pre-op Procedure: Procedure: Left sacroiliac joint injection Medications: Bupivacaine 0.25% 3cc, kenalog 40mg After informed consent was obtained, the patient was brought to the medical procedure unit and placed in the prone position, when a timeout was completed verifying correct patient, procedure, site, positioning, implant, and/or special equipment.? The skin overlying the area was prepped and draped in standard sterile fashion using alcohol.? A 25-gauge needle was inserted towards the left sacroiliac joint under direct fluoroscopic imaging.? Needle tip was advanced until the joint was encountered.? We instilled a total of 2 mL of solution.? Postoperatively needles were removed.? The patient tolerated the procedure well without complication.? The patient reported reduction in pain symptoms postoperatively. Anesthesia: Local Surgeon: Delmy Weber Pathology: none sent Condition: stable Disposition: no change
[2024-01-30] MEDS: TRIAMCINOLONE ACETONIDE 40 MG/ML VIAL INJ (10:57)
[2024-01-30] MEDS: BUPIVACAINE HCL 0.25% PF 25 MG/10 ML VIAL 2 ML INJ (10:57)
[2024-01-30] MEDS: LIDOCAINE HCL 2% 400 MG/20 ML MDV INJ (10:57)
[2024-01-30] MEDS: IOHEXOL 240 MG/ML - 10 ML VIAL 12 MG INJ (10:57)
== END 2024-01-30 11:01 | disposition home or self-care (01) ==
LOC: SURGOUT 09:25
PROVIDERS: PCP Family Medicine; Visit Provider Anesthesiology
DX: M46.1 Sacroiliitis, not elsewhere classified (principal); E11.9 Type 2 diabetes mellitus without complications; Z79.84 Long term (current) use of oral hypoglycemic drugs
CPT/HCPCS: 27096; 36415; 82948; J0665; J3301; Q9966

== ENCOUNTER 2024-02-09 13:56 | Outpatient (OUT) | payer MEDICARE, OTHER, SELFPAY ==
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
== END 2024-02-09 13:57 | disposition home or self-care (01) ==
PROVIDERS: PCP Family Medicine; Visit Provider Nurse Practitioner
DX: M46.1 Sacroiliitis, not elsewhere classified (principal); M48.062 Spinal stenosis, lumbar region with neurogenic claudication; M47.816 Spondylosis without myelopathy or radiculopathy, lumbar region
CPT/HCPCS: G0463

== ENCOUNTER 2024-02-20 10:08 | Day surgery (SDC) | payer MEDICARE, OTHER, SELFPAY ==
--- OUTSIDE RECORDS SUMMARY | 2024-02-20 10:28 | XMS_ITS | CCD ---
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 Author Type: Physician Type: Anesthesia Preprocedure Evaluation Filed: 12/20/2023 07:16 Note Text: ANESTHESIOLOGY DAY OF SURGERY NOTE : 1955 Procedure Information Date/Time: 12/20/23 1030 Procedure: MRI ANESTHESIA Location: RADIOLOGY MODALITY / MM IR Surgeons: Fidelina Beal MD, MD Estimated body mass index is 36.81 kg/m? as calculated from the following: Height as of 12/14/23: 170.2 cm (5' 7 ). Weight as of 12/14/23: 106.6 kg (235 lb). Most recent hematocrit and potassium results: No results found for this basename: HCT,HEMATOCRIT,K,POT ASSIUM Relevant Problems ANESTHESIA (+) AVELINA (obstructive sleep [...] for the desired time range. No current facility-administere d medications on file as of . Outpatient [...] Take 1 tablet by mouth every afternoon. Losartan-Hydrochloro thiazide 100-12.5 mg per tablet Take 1 tablet [...] December 20, 2023 TIME: 7:16 AM CSN: [id number] [facility] 12-20-2023 [facility] Telephone (MMAD) JOCELYN HUSSEIN ([id number]) 1955 Date Time Provider Department 12/20/23 [facility] During your visit today, we recorded the following information about you: Allergies As of Date: 12/20/2023 (No Known Allergies) Date Reviewed: 12/20/2023 Reviewed by: Lorena Simons RN - Fully Assessed Reason for Visit: Radiology [...] 1 tablet by mouth every afternoon. - Losartan-Hydrochloro thiazide 100-12.5 mg per tablet Take 1 tablet [...] Encounter Status:Closed by LYDIA LOGAN on 12/20/23 [facility] MR Pelvis WO contraston 10-2 IMPRESSION: No specific pelvis/hip abnormality. Partial visualization of lumbar degenerative change. Campaign Fundraiser: PSCB Transcribe Date/Time: Dec 20 2023 1:30P Dictated by : FIDELINA BRYAN MD This examination was interpreted and the report reviewed and electronically signed by: FIDELINA BRYAN MD on Dec 20 2023 1:33PM [facility] RADIOLOGY * * *Final Report* * * [...] detail. Localizer images: No additional findings. - [facility] RADIOLOGY Provider, [facility] - 12/20/2023 * * *Final Report* * * DATE OF EXAM: Dec 20 2023 11:11AM M 0741 - MRI PELVIS WO IVCON / [...] abnormality. Partial visualization of lumbar degenerative change. Campaign Fundraiser: CRISTY Transcribe Date/Time: Dec 20 2023 1:30P Dictated by : FIDELINA BRYAN MD This examination was interpreted and the report reviewed and electronically signed by: FIDELINA BRYAN MD on Dec 20 2023 1:33PM [facility] Radiology Study observation (narrative) [facility] MR Pelvis WO contrastOrdered By: Ccf Provider on 12-20-2023 [facility] MRI PELVIS WO IVCONon 2023 MRI PELVIS [...] abnormality. Partial visualization of lumbar degenerative change. Campaign Fundraiser: CRISTY Transcribe Date/Time: Dec 20 2023 1:30P Dictated by : FIDELINA BRYAN MD This examination was interpreted and the report reviewed and electronically signed by: FIDELINA BRYAN MD on Dec 20 2023 1:33PM EST [id number] CN [facility] NURSING PROGon 12-20-2023 NURSING PROG HNO ID: [id number] Author: LORENA SIMONS RN Service: Interventional Radiology [...] cath: 20 gauge. PERIPHERAL IV ACCESS: Discontinued ANXIOLYSIS/ANESTHESI A: Please see Outpatient Preoperative Nursing Care Record [...] DATE: December 20, 2023 TIME: 11:25 AM [facility] JOC[facility]USSE[facility] ([id number]) 1955 M Date Time Provider Department 12/19/23 [...] 1 tablet by mouth every afternoon. - Losartan-Hydrochloro thiazide 100-12.5 mg per tablet Take 1 tablet [...] Encounter Status:Closed by LORENA SIMONS on 12/19/23 [facility] Surgical pathology studyon 1 Surgical pathology study Pathology report.total SEE COMMENT Dermatopathology Report Case: [id number] Authorizing Provider: Jayy Garcia MD PhD Collected: 12/19/2023 1023 Ordering Location: [facility] Received: 12/19/2023 [facility] Pathologist: Kvng Sotomayor MD Specimen: OUTSIDE BLOCK(S)/SLIDE(S), 2 SLIDES, [facility], #[id number] (Bx: 07/20/23) Path report.final diagnosis SEE COMMENT 2 SLIDES, [facility], #[id number] (Bx: 07/20/23) SKIN, RIGHT NOSE, SHAVE BIOPSY: [...] A. OUTSIDE BLOCK(S)/SLIDE(S). Received for consultation from [facility] are two slides labeled [id number] (Bx: 07/20/23) along with the corresponding pathology report. [facility] Ambulatory Comment on above: Order Comment: Mater ials Received: 2 SLIDES, [facility], #[id number] (Bx: 07/20/23) HISTORY PHYSICALon HISTORY PHYSICAL HNO ID: [id number] Author: JEAN PIERRE HOLLIS PA-C Service: ? Author Type: Physician Group Marketing Vp Type: H&P Filed: 12/14/2023 11:34 Note Text: [...] Dewitt present: no Lip Bite Test: I Microretrognathia/Mi cronagthia/Recessed Chin: No DENTAL Dental findings: teeth intact. [...] visit. Either the patient or their legal inbound sales representative has been informed of the risks [...] angina, antico (more content not included)... [facility] 12[facility]07[facility]2023 [facility] Telephone (MRIQ) JOCELYN HUSSEIN ([id number]) 1955 M Date Time Provider Department 12/07/23 AMNA ESCALERA MRIQ During your visit today, we recorded the following information about you: Amna Escalera, RN 12/07/2023 12:17 PM Signed Radiology Service [...] Anxiolysis Education Prescriptions as of 12/07/2023 - Losartan-Hydrochloro thiazide 100-12.5 mg per tablet Take 1 tablet by mouth once daily. - metoprolol succinate XL, long acting, (TOPROL XL) 100 mg Tb24 Take 100 mg by mouth. - allopurinol 300 mg tablet Take 300 mg by mouth once daily. 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 - metoprolol succinate XL, long acting, (TOPROL XL) 100 mg Tb24 Take 100 mg by mouth. - allopurinol 300 mg tablet Take 300 mg by mouth once daily. 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 - metoprolol succinate XL, long acting, (TOPROL XL) 100 mg Tb24 Take 100 mg by mouth. - allopurinol 300 mg tablet Take 300 mg by mouth once daily. 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 Glucose of more than 200 mg/dL in a nonstressed, ambulatory subject supports the diagnosis of Diabetes Mellitus. [facility] Capillary blood glucose vonda urement by glucometer (mass/volume)Ordered By: Hugo Power on 11-04-2023 Glucose [Mass/Vol] 132 mg/dL Normal [facility] Comment on above: Random Glucose Refer ence Range is dependent on time and content of last meal. Glucose of more than 200 mg/dL in a nonstressed, ambulatory subject supports the diagnosis of Diabetes Mellitus. Result Comment: [facility] Glucose Reference Range is dependent on time and content of last meal. Glucose of more than 200 mg/dL in a nonstressed, ambulatory subject supports the diagnosis of Diabetes Mellitus. Performed By: #### G LUAUGUSTO #### Point of Care testing , GLUCOSE POCT GLUCOMETERSon 0 11-04-2023 COMMEMT1 Glu2: Cleaned Meter [facility] Glucose [Mass/Vol] 132 mg/dL [facility] Comment on above: Random Glucose Refer ence Range is dependent on time and content of last meal. Glucose of more than 200 mg/dL in a nonstressed, ambulatory subject supports the diagnosis of Diabetes Mellitus. [facility] Glucose Poct Glucometerson 0 11-04-2023 Glucose [Mass/Vol] 131 mg/dL Normal [facility] Comment on above: Result Comment: [facility] Glucose Reference Range is dependent on time and content of last meal. Glucose of more than 200 mg/dL in a nonstressed, ambulatory subject supports the diagnosis of Diabetes Mellitus. PERFORMED BY: [facility] [address] [place] [address] PATHOLOGIST ENTRY LEVEL ACCOUNTING CLERK JEVON DAILEY M.D. Performed By: #### G LULS #### Point of Care testing , Commemt1 Glu2: Cleaned Meter Normal [facility] Comment on above: Result Comment: PERF ORMED BY: [facility] [address] [place] [address] PATHOLOGIST ENTRY LEVEL ACCOUNTING CLERK JEVON DAILEY M.D. Performed By: #### G LULS #### Point of Care testing , Jose 11-04-2023 L Specimen: [id number] Received: 11/04/23 Status: CUATE Goins Num: [id number] Spec Type: Surgical Subm Dr: Hugo Power DO Tissues: A Skin-Other than Cyst, tag, debridement or plastic repair (NOSE) Procedures: HE/10, Gross/Micro L4 Age/ Patient Sex Location Account Attending Physician Jocelyn Hussein 68/M [place] [id number] Hugo Power DO SPEC NUM: [id number] RECD: 11/04/23 STATUS: CUATE GOINS NUM: [id number] ESHA: 11/04/23 DR: Hugo Power DO ENTERED: 11/04/23 [facility] DR: SPEC TYPE: Surgical DEPT: S ENTERED BY: [id number] RECV BY: [id number] ORDERED: HE/10, Gross/Micro L4 ORDERED: HE/10, Gross/Micro [...] quadrisected A2 mid sections A3 6:00 trisected Specimen: [id number] Received: 11/04/23 Status: CUATE Goins Num: [id number] Spec Type: Surgical Subm Dr: Hugo Power DO Tissues: A Skin-Other than Cyst, tag, debridement or plastic repair (NOSE) Procedures: 10, Gross/Micro L4 Patient: Jocelyn Hussein [id number] (Continued) Specimen: [id number] Received: 11/04/23 (Continued) Signed (signature on file) Ramandeep Coto MD 11/10/23 1824 Specimen: [id number] Received: 11/04/23 Status: UCATE Goins Num: [id number] Spec Type: Surgical Subm Dr: Hugo Power DO Tissues: A Skin-Other than Cyst, tag, debridement or plastic repair (NOSE) Procedures: , Gross/Micro L4 Patient: Jocelyn Hussein [id number] (Continued) Specimen: [id number] Received: 11/04/23 (Continued) CPT Codes 69957 Specimen: [id number] Received: 11/04/23-1399 Status: CUATE Goins Num: [id number] Spec Type: Surgical Subm Dr: Hugo Power DO Tissues: A Skin-Other than Cyst, tag, debridement or plastic repair (NOSE) Procedures: , Gross/Micro L4 Patient: Jocelyn Hussein [id number] (Continued) Signed (signature on file) Ramandeep Coto MD 11/10/231823 Normal [facility] No Panel InformationOrdered By: Hugo Power on 11-04-2023 Bedside Glucose Comment Glu2: cleaned meter [facility] Automated basophil %Ordered By: Hugo Power on 11-01-2023 Basophils/100 WBC (Bld) 0.8 % Normal . [facility] Comment on above: Performed By: #### B MP, CBC #### [facility] [address] [place] [address] Automated basophil countOrde red By: Hugo Power on 11-01-2023 Basophils (Bld) [#/Vol] 0.0 10*3/uL Normal 0.0-0.2 [facility] Comment on above: Result Comment: PERF ORMED BY: [place] [address] PATHOLOGIST ENTRY LEVEL ACCOUNTING CLERK JEVON DAILEY M.D. Performed By: #### B MP, CBC #### [address] Automated blood monocyte cou ntOrdered By: Hugo Power on 11-01-2023 Monocytes (Bld) [#/Vol] 0.7 10*3/uL Normal 0.0-0.8 [facility] Comment on above: Performed By: #### B MP, CBC #### [facility] [address] [place] [address] Automated eosinophil %Ordere d By: Hugo Power on 11-01-2023 Eosinophils/100 WBC (Bld) 7.5 % Normal . [facility] Comment on above: Performed By: #### B MP, CBC #### [address] Automated eosinophil countOr dered By: Hugo Power on 11-01-2023 Eosinophils (Bld) [#/Vol] 0.5 10*3/uL High 0.0-0.45 [facility] Comment on above: Performed By: #### B MP, CBC #### [address] Automated monocyte %Ordered By: Hugo Power on 11-01-2023 Monocytes/100 WBC (Bld) 10.5 % Normal . [facility] Comment on above: Performed By: #### B MP, CBC #### [address] Automated neutrophil %Ordere d By: Hugo Powre on 11-01-2023 Neutrophils/100 WBC (Bld) 56.2 % Normal . [facility] Comment on above: Performed By: #### B MP, CBC #### [facility] [address] Basic Metabolic Panelon 10-22 GFR/1.73 sq M.predicted MDRD (S/P/Bld) [Vol rate/Area] mL/min/{1.73_m2} Normal [facility] Comment on above: Performed By: #### B MP, CBC #### [facility] [address] [id number] [facility] Basic metabolic 1998 panelon 11-01-2023 Anion gap [Moles/Vol] 12.9 mmol/L 6.0 - 15.0 NO [facility] Calcium [Mass/Vol] 9.1 mg/dL 8.6 - 10.3 mg/dL [facility] Chloride [Moles/Vol] 104 mmol/L 98 - 107 mmol/L [facility] CO2 [Moles/Vol] 24.3 mmol/L 21.0 - 31.0 mmol/L [facility] Creatinine (U) [Mass/Vol] 1.15 mg/dL 0.70 - 1.30 mg/dL [facility] GFR/1.73 sq M.predicted MDRD (S/P/Bld) [Vol rate/Area] mL/min/{1.73_m2} [facility] Glucose [Mass/Vol] 117 mg/dL High 70 - 100 mg/dL NO [facility] Comment on above: Random Glucose Refer ence Range is dependent on time and content of last meal. Glucose of more than 200 mg/dL in a nonstressed, ambulatory subject supports the diagnosis of Diabetes Mellitus. ADA recommended reference range Interpretation and review of laboratory results Abnormal [facility] Potassium [Moles/Vol] 4.2 mmol/L 3.5 - 5.1 mmol /L [facility] Comment on above: Hemolysis is present at a level that could interfere with the result. Contact lab if redraw is required Sodium [Moles/Vol] 137 mmol/L 136 - 145 mmol/L [facility] Urea nitrogen [Mass/Vol] 27 mg/dL High 7 - 25 mg/dL [facility] CBC W Auto Differential pane l (Bld)on 09-10-2024 Basophils (Bld) [#/Vol] 0.0 10*3/uL 0.0 - 0.2 10*3/uL [facility] Basophils/100 WBC Manual cnt (Syn fld) 0.8 % . [facility] Eosinophils (Bld) [#/Vol] 0.5 10*3/uL High 0.0 - 0.45 10*3/uL [facility] Eosinophils/100 WBC Manual cnt (Syn fld) 7.5 % . [facility] Erythrocyte distribution width (RBC) [Ratio] 13.0 % 12.0 - 14.8 % [facility] Hematocrit (Bld) [Volume fraction] 36.1 % Low 38.8 - 50.0 % [facility] Hemoglobin (Bld) [Mass/Vol] 12.3 g/dL Low 13.0 - 17.0 g/dL [facility] Interpretation and review of laboratory results Abnormal [facility] Lymphocytes (Bld) [#/Vol] 1.6 10*3/uL 1.00 - 4.8 10*3/uL [facility] Lymphocytes/100 WBC Manual cnt (Syn fld) 25.0 % . [facility] MCH (RBC) [Entitic mass] 31.6 pg 27.5 - 35.2 pg [facility] MCHC (RBC) [Mass/Vol] 34.0 g/dL 32.5 - 35.6 g/ dL [facility] MCV (RBC) [Entitic vol] 93.0 fL 83.5 - 101 fL [facility] Monocytes (Bld) [#/Vol] 0.7 10*3/uL 0.0 - 0.8 10*3/uL [facility] Monocytes+Macrophages/ 100 WBC Manual cnt (Syn fld) 10.5 % . [facility] Neutrophils (Bld) [#/Vol] 3.6 10*3/uL 1.8 - 7.7 10*3/uL [facility] Neutrophils/100 WBC Manual cnt (Syn fld) 56.2 % . [facility] NRBC 0.1 /100{WBC} 0 - 0.5 /100{WBC} [facility] Platelet mean volume (Bld) [Entitic vol] 6.6 fL 6.6 - 10.1 fL [facility] Platelets (Bld) [#/Vol] 205 10*3/uL 150 - 450 10*3/uL [facility] RBC LM.HPF (Urine sed) [#/Area] 3.88 /[HPF] Low 3.90 - 5.60 [facility] WBC (Bld) [#/Vol] 6.4 10*3/uL 4.1 - 10.5 10*3/uL [facility] WBC LM.HPF (Urine sed) [#/Area] 6.4 10*3/uL 4.1 - 10.5 10*3/uL [facility] Calcium [Mass/volume] in Ser um or PlasmaOrdered By: Hugo Power on 11-01-2023 Calcium [Mass/Vol] 9.1 mg/dL Normal 8.6-10.3 [facility] Comment on above: Result Comment: PERF ORMED BY: [place] [address] PATHOLOGIST ENTRY LEVEL ACCOUNTING CLERK JEVON DAILEY M.D. Performed By: #### B MP, CBC #### [address] Carbon dioxide, total [Moles /volume] in Serum or PlasmaOrdered By: Hugo Power on 11-01-2023 CO2 [Moles/Vol] 24.3 mmol/L Normal 21.0-31.0 [facility] Comment on above: Performed By: #### B MP, CBC #### [address] Chloride [Moles/volume] in S charles or PlasmaOrdered By: Hugo Power on 11-01-2023 Chloride [Moles/Vol] 104 mmol/L Normal 98-107 [facility] Comment on above: Performed By: #### B MP, CBC #### [facility] [address] [place] [address] [place] Complete Blood Count Auto Di ffon 11-01-2023 Mean Corpuscular HGB Conc 34.0 g/dL Normal 32.5-35.6 [facility] Comment on above: Performed By: #### B MP, CBC #### [facility] [address] [place] [address] [place] NRBC% 0.1 /100{WBC} Normal 0-0.5 [facility] Comment on above: Performed By: #### B MP, CBC #### [facility] [address] Creatinine [Mass/volume] in Serum or PlasmaOrdered By: Hugo Power on 11-01-2023 Creatinine [Mass/Vol] 1.15 mg/dL Normal 0.70-1.30 [facility] Comment on above: Performed By: #### B MP, CBC #### [facility] [address] ECG 12 lead ECGon 11-01-2023 ECG 12 lead ECG [facility] Main [place] [address] [place] [address] Electrocardiograph Report Signed Patient: Jocelyn Hussein MR#: [id number] : 1955 Acct:[id number] Age/Sex: 68 / M ADM Date: 11/01/23 Loc: Room: Type: [facility] Attending Dr: Hugo Power DO Ordering Provider: [...] previous ECGs available Confirmed by Kari Campuzano ([id number]) on 11/02/2023 12:04:39 PM Referred By: Electronically Signed By: Kari Campuzano Transcribed By: MUS Signed By Kari Campuzano DO 4 1204 Normal [facility] Erythrocyte distribution wid th [Ratio] by Automated countOrdered By: Hugo Power on 11-01-2023 Erythrocyte distribution width (RBC) [Ratio] 13.0 % Normal 12.0-14.8 [facility] Comment on above: Performed By: #### B MP, CBC #### [facility] [address] [place] [address] [place] Erythrocytes [#/volume] in B lood by Automated countOrdered By: Hugo Power on 11-01-2023 RBC (Bld) [#/Vol] 3.88 10*6/uL Low 3.90-5.60 [facility] Comment on above: Performed By: #### B MP, CBC #### [facility] [address] Glucose [Mass/volume] in Ser um or PlasmaOrdered By: Hugo Power on 11-01-2023 Glucose [Mass/Vol] 117 mg/dL High 70-100 [facility] Comment on above: ADA recommended refe rence rangeRandom Glucose Reference Range is dependent on time and content of last meal. Glucose of more than 200 mg/dL in a nonstressed, ambulatory subject supports the diagnosis of Diabetes Mellitus. Result Comment: [place] Glucose Reference Range is dependent on time and content of last meal. Glucose of more than 200 mg/dL in a nonstressed, ambulatory subject supports the diagnosis of Diabetes Mellitus. ADA recommended reference range Performed By: #### B MP, CBC #### [address] Hematocrit [Volume Fraction] of Blood by Automated countOrdered By: Hugo Power on 11-01-2023 Hematocrit (Bld) [Volume fraction] 36.1 % Low 38.8-50.0 [facility] Comment on above: Performed By: #### B MP, CBC #### [facility] [address] [place] [address] [place] Hemoglobin [Mass/volume] in BloodOrdered By: Hugo Power on 11-01-2023 Hemoglobin (Bld) [Mass/Vol] 12.3 g/dL Low 13.0-17.0 [facility] Comment on above: Performed By: #### B MP, CBC #### [facility] [address] [place] [address] [place] Leukocytes [#/volume] correc odalis for nucleated erythrocytes in Blood by Automated counOrdered By: Hugo Power on 11-01-2023 WBC corrected for nucl RBC Auto (Bld) [#/Vol] 6.4 10*3/uL 4.1-10.5 [facility] Leukocytes [#/volume] in Blo od by Automated countOrdered By: Hugo Power on 11-01-2023 WBC (Bld) [#/Vol] 6.4 10*3/uL Normal 4.1-10.5 [facility] Comment on above: Performed By: #### B MP, CBC #### [facility] [address] [place] [address] [place] Lymphocytes [#/volume] in Bl ood by Automated countOrdered By: Hugo Power on 11-01-2023 Lymphocytes (Bld) [#/Vol] 1.6 10*3/uL Normal 1.00-4.8 [facility] Comment on above: Performed By: #### B MP, CBC #### [facility] [address] [place] [address] [place] Lymphocytes/100 leukocytes i n Blood by Automated countOrdered By: Hugo Power on 11-01-2023 Lymphocytes/100 WBC (Bld) 25.0 % Normal . [facility] Comment on above: Performed By: #### B MP, CBC #### [facility] [address] [place] [address] [place] MCH [Entitic mass] by Automa odalis countOrdered By: Hugo Power on 11-01-2023 MCH (RBC) [Entitic mass] 31.6 pg Normal 27.5-35.2 [facility] Comment on above: Performed By: #### B MP, CBC #### [facility] [address] [place] [address] MCHC Auto (RBC) [Mass/Vol]Or dered By: Hugo Power on 11-01-2023 MCHC (RBC) [Mass/Vol] 34.0 g/dL 32.5-35.6 [facility] MCV [Entitic volume] by Auto mated countOrdered By: Hugo Power on 11-01-2023 MCV (RBC) [Entitic vol] 93.0 fL Normal 83.5-101 [facility] Comment on above: Performed By: #### B MP, CBC #### [facility] [address] Neutrophils [#/volume] in Bl ood by Automated countOrdered By: Hugo Power on 11-01-2023 Neutrophils (Bld) [#/Vol] 3.6 10*3/uL Normal 1.8-7.7 [facility] Comment on above: Performed By: #### B MP, CBC #### [facility] [address] No Panel InformationOrdered By: Hugo Power on 11-01-2023 Estimated GFR (CKD-EPI) > 60.0 mL/Min [facility] Creatinine Clearance (Chem N/A [facility] Nucleated erythrocytes [Pres ence] in Blood by Automated countOrdered By: Hugo Power on 11-01-2023 Nucleated RBC Auto Ql (Bld) 0.1 /100{WBC} 0-0.5 [facility] Platelet mean volume [Entiti c volume] in Blood by Automated countOrdered By: Hugo Power on 11-01-2023 Platelet mean volume (Bld) [Entitic vol] 6.6 fL Normal 6.6-10.1 [facility] Comment on above: Performed By: #### B MP, CBC #### [facility] [address] [place] [address] Platelets [#/volume] in Bloo d by Automated countOrdered By: Hugo Power on 11-01-2023 Platelets (Bld) [#/Vol] 205 10*3/uL Normal 150-450 [facility] Comment on above: Performed By: #### B MP, CBC #### [address] Potassium [Moles/volume] in Serum or PlasmaOrdered By: Hugo Power on 11-01-2023 Potassium [Moles/Vol] 4.2 mmol/L Normal 3.5-5.1 [facility] Comment on above: Hemolysis is present at a level that could interfere with the result.Contact lab if redraw is required Result Comment: Hemo lysis is present at a level that could interfere with the result. Contact lab if redraw is required Performed By: #### B MP, CBC #### [address] Serum or plasma anion gap de terminationOrdered By: Hugo Power on 11-01-2023 Anion gap [Moles/Vol] 12.9 mmol/L Normal 6.0-15.0 [facility] Comment on above: Performed By: #### B MP, CBC #### [place] [id number] [facility] Sodium [Moles/volume] in Ser um or PlasmaOrdered By: Hugo Power on 11-01-2023 Sodium [Moles/Vol] 137 mmol/L Normal 136-145 [facility] Comment on above: Performed By: #### B MP, CBC #### [place] [id number] [facility] Urea nitrogen [Mass/volume] in Serum or PlasmaOrdered By: Hugo Power on 11-01-2023 Urea nitrogen [Mass/Vol] 27 mg/dL High 7-25 [facility] Comment on above: Performed By: #### B MP, CBC #### [place] [id number] [facility] C Urineon 10-14-2023 Bacteria identified Cx Nom [...] Locations R1: This test was performed at: [facility], [address] [place] [address], [address] [facility], Normal [facility] Comment on above: Performed By: #### 2 [id number] #### [facility] [address] [place] [address] URINALYSISOrdered By: Sy Cadena on 10-12-2023 Bilirubin Ql (U) Negative Normal Negativemg/dL [facility] UA Auto SS Clarity (U) Clear (10/12/23 11:18 AM) Normal Clear [facility] UA Auto SS Color (U) Light-Yellow 1 (10/12/23 11:18 AM) Normal Yellow [facility] UA Auto SS Comment on above: Interpretive Data: M icroscopic readings are only performed on those samples that meet specific criteria set forth by [facility]. Glucose Ql (U) 3+ mg/dL Invalid [...] Desc Clean Catch (10/12/23 11:18 AM) Normal [facility] UA Auto SS Urinalysis with Microon 09-22 Bilirubin Ql (U) Negative Normal Negative [facility] Comment on above: Performed By: #### 4 [id number] #### [facility] [address] [place] [address] Clarity (U) Clear Normal Clear [facility] Comment on above: Performed By: #### 4 [id number] #### [facility] [address] [place] [address] Color (U) Light-Yellow Normal Yellow [facility] Comment on above: Result Comment: Micr oscopic readings are only performed on those samples that meet specific criteria set forth by [facility]. Performed By: #### 4 [id number] #### [facility] [address] [place] [address] Glucose Ql (U) 3+ mg/dL Abnormal Negative [facility] Comment on above: Performed By: #### 4 [id number] #### [facility] [address] [place] [address] Hemoglobin Auto test strip (U) [Mass/Vol] Negative Normal Negative [facility] Comment on above: Performed By: #### 4 [id number] #### [facility] [address] [place] [address] Ketones Auto test strip Ql (U) Negative Normal Negative [facility] Comment on above: Performed By: #### 4 [id number] #### [facility] [address] [place] [address] Leukocyte esterase Auto test strip Ql (U) Negative Normal Negative [facility] Comment on above: Performed By: #### 4 [id number] #### [facility] [address] [place] [address] Nitrite Auto test strip Ql (U) Negative Normal Negative [facility] Comment on above: Performed By: #### 4 [id number] #### [facility] [address] [place] [address] pH (U) 5.0 [pH] Invalid Interpretation Code 5.0-9.0 [facility] Comment on above: Performed By: #### 4 [id number] #### [facility] [address] [place] [address] Protein Ql (U) Trace Abnormal Negative [facility] Comment on above: Performed By: #### 4 [id number] #### [facility] [address] [place] [address] Specific gravity (U) [Rel density] 1.025 Invalid Interpretation Code 1.005-1.030 [facility] Comment on above: Performed By: #### 4 [id number] #### [facility] [address] [place] [address]57 Urobilinogen (U) [Mass/Vol] Negative Normal Negative [facility] Comment on above: Performed By: #### 4 [id number] #### [facility] [address] [place] [address] Type of Urine collection method Clean Catch Normal [facility] Comment on above: Performed By: #### 4 [id number] #### [facility] [address] [place] [id number] Ambulatory Visit Summaryon 0 10-11-2023 Ambulatory Visit Summary Ambulatory Visit Summary JOVITA JOCELYN Ray :1955 Visit Date:10/11/2023 Ambulatory Visit Instructions Your [...] mg Tab) atorvastatin (atorvastatin 10 mg Tab) hydrochlorothiazide- losartan (hydrochlorothiazide -losartan 12.5 mg-100 mg oral tablet) levothyroxine (levothyroxine 75 mcg (0.075 mg) Tab) meloxicam (meloxicam 15 mg Tab) metformin (Glucophage XR 500 mg Tab-ER) metformin (Glucophage XR 500 mg Tab-ER) metoprolol (metoprolol 100 mg ER Tab) oxycodone (oxyCODONE 5 mg Cap) Procedures Performed Cataract extraction, Cystoscopy, Lithotripsy, Tonsillectomy. What to do next Scheduled Follow-Up Appointments Tuesday 11:00 AM EDT With: Where: [address] [id number]- Tuesday 8:00 AM EST With: Where: [address] [address]- Tuesday 8:45 AM EST With: Shivani Limon MD Where: [address] [id number]- Medications What How Much When Why Instructions Unchanged allopurinol (allopurinol 300 mg Tab) See instructions TAKE 1 TABLET BY MOUTH EVERY DAY Unchanged atorvastatin (atorvastatin 10 mg Tab) See instructions TAKE 1 TABLET BY MOUTH EVERY DAY Unchanged hydrochlorothiazide- losartan (hydrochlorothiazide -losartan 12.5 mg-100 mg oral tablet) 1 Tablets [...] choosing us for your care. Normal [facility] Family Medicine Office/Clini c Noteon 10-11-2023 Family [...] qWeek, # 12 EA, Refills(s) 0, [id number], 170.3, cm, 10/11/23 15:26:00 EDT, Height/Length [...] qWeek, # 12 EA, Refills(s) 0, [facility]acy: [id number], 170.3, cm, 10/11/23 15:26:00 EDT, Height/Length [...] qWeek, # 12 EA, Refills(s) 0, Pharmacy: [id number], 170.3, cm, 10/11/23 15:26:00 EDT, Height/Length [...] qWeek, # 12 EA, Refills(s) 0, Pharmacy: [id number], 170.3, cm, 10/11/23 15:26:00 EDT, Height/Length [...] qWeek, # 12 EA, Refills(s) 0, Pharmacy: [id number], 170.3, cm, 10/11/23 15:26:00 EDT, Height/Length Dosing, 104.8, kg, 10/11/23 15:26:00 EDT, Weight Dosing Body Mass Index (BMI) documented 3008F Current (more content not included)... Normal [facility] Comment on above: Result Comment: Elec tronically Signed By: Ashly HENDRICKS, Shivani Power.br\Date and Time Signed: 10/11/23 15:33 EDT Pre-Visit Planningon 024 Pre-Visit Planning Pre-Visit Planning - From: Modesta Mahmood To: Shivani Limon MD; Sent: 10/10/2023 10:36:27 EDT Subject: Pre-Visit Planning Due Date/Time: 10/10/2023 10:36:00 EDT Caller Name: JOCELYN HUSSEIN; Caller Number: Bisi , Marlee Nv Dr. Limon. During a pre-visit planning chart review, I noted the following documentation in the medical record: 09/12/2023 [facility] ED Note (page 1 and page 5): [...] clarify which, if any, of the following conditions/complicat ions are present? I can update the Chronic [...] feel free to contact me at extension [phone]. Thank you! Modesta Mahmood LPN Clinical [employer] Technician [place] [address] Extension: [email or web address] - From: Shivani Limon MD To: Modesta Mahmood; Sent: 10/10/2023 10:49:37 EDT Subject: RE: Pre-Visit Planning Caller Name: JOCELYN HUSSEIN; Caller Number: Bisi , M Decubitus ulcer of buttock, stage 1 Normal [facility] Ambulatory Visit Summaryon 0 09-06-2023 Ambulatory Visit [...] mg Tab) atorvastatin (atorvastatin 10 mg Tab) hydrochlorothiazide- losartan (hydrochlorothiazide -losartan 12.5 mg-100 mg oral tablet) levothyroxine (levothyroxine [...] AM EDT With: Shivani Limon MD Where: [facility] Invalid Interpretation Code [address] [place] [address]- \.br\ Tuesday 8:45 AM EST \.br\ With: Ashly HENDRICKS, Shivani Mullen\.br\ Where: [facility] Medicine Office/Clini c Noteon 09-06-2023 Family Medicine [...] day(s), # 21 tab(s), Refills(s) 0, Pharmacy: [id number], 170.3, cm, 09/06/23 7:42:00 EDT, Height/Length Dosing, 101.3, kg, 09/06/23 7:42:00 EDT, Weight Dosing oxycodone, 5 mg = 1 cap(s), Oral, q6hr, PRN for pain, # 28 cap(s), Refills(s) 0, Pharmacy: [facility]/pharmacy #[id number], 170.3, cm, 09/06/23 7:42:00 EDT, Height/Length [...] Tab-ER, 1000 mg= 2 tab(s), Oral, BID hydrochlorothiazide- losartan 12.5 mg-100 mg oral tablet, 1 tab(s), [...] 12/23/2021 Tobacco (more content not included)... Normal [facility] Comment on above: Result Comment: Elec tronically [...] Tab-ER, 1000 mg= 2 tab(s), Oral, BID hydrochlorothiazide- losartan 12.5 mg-100 mg oral tablet, 1 tab(s), [...] virus vaccine, inactivated 11/30/2022 Given SARS-CoV-2 (COVID-19) [id number] 02/01/2022 Recorded influenza virus vaccine, inactivated 01/07/2022 Recorded influenza virus vaccine, inactivated 01/09/2021 Recorded SARS-CoV-2 (COVID-19) mRNA BNT-162b2 vax 12/16/2020 Recorded 2022-05-28: [id number] SARS-CoV-2 (COVID-19) mRNA BNT-162b2 vax 04/25/2020 Recorded 2022-05-28: TPV65 SARS-CoV-2 (COVID-19) mRNA BNT-162b2 vax 04/04/2020 Recorded 2022-05-28: TPV65 pneumococcal 13-valent vaccine 12/21/2019 Recorded influenza virus vaccine, inactivated 12/21/2019 Recorded Normal [facility] Comment on above: Result Comment: Elec tronically Signed By: Jennie Garza\.oseas\Date and Time Signed: 09/02/23 07:55 EDT Surgical pathology studyon 0 08-22-2023 Surgical pathology study Pathology report.total SEE COMMENT Dermatopathology Report Case: [id number] Authorizing Provider: Jayy Garcia MD PhD Collected: 08/22/2023937 Ordering Location: [facility] Received: 08/22/[address] [place] [address] Pathologist: Nabeel Mckoy MD Specimen: OUTSIDE BLOCK(S)/SLIDE(S), 2 SLIDES, [facility], #[id number] (BX: 07/20/23) Path report.final diagnosis SEE COMMENT 2 SLIDES, [facility], #[id number] (BX: 07/20/23) SKIN, RIGHT NOSE, SHAVE BIOPSY: [...] Tumor block is [facility] original case # [id number] Path report.relevant Hx Shave Tangential/Neoplasm of unspecified behavior of bone, soft tissue, and skin. Solar lentigo vs Lentigo maligna. 1.0 x 1.0 cm hyperpigmented patch. Path report.gross observation SEE COMMENT A. OUTSIDE BLOCK(S)/SLIDE(S). Received for consultation from [facility] are two slides labeled [id number] (Bx: 07/20/23) along with the corresponding pathology report. Path report.microscopic observation The Hematoxylin and Eosin stained sections of the trisected shave specimen reveals poorly nested atypical junctional melanocytes along the dermal-epidermal junction with confluence and pagetoid scatter. There is significant dermal solar elastosis. 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 The received deeper additional step sections were additionally reviewed. [facility] Comment on above: Order Comment: Alma perdomo Received: 2 SLIDES, [facility], #[id number] (BX: 07/20/23) Consultation Noteon 07-25-19 Consultation Note [id number] #1.00TIFF [facility] Consultation Noteon 07-21-19 Consultation Note [id number]# 1.00TIFF [facility] Ambulatory Visit Summaryon 0 06-30-2023 Ambulatory Visit Summary HUSSEINJOCELYN :1955 Visit Date:06/30/2023 Ambulatory Visit Instructions Your Diagnosis Type 2 diabetes mellitus with hyperlipidemia BMI 38.0-38.9,adult Class 1 obesity due to excess calories in adult Nonsmoker Hyperlipidemia, unspecified Your Care Team Attending Physician - Shivani Limon MD Primary Care Physician - Shivani Limon MD. This Is Your Medications List empagliflozin (Jardiance 10 mg oral tablet) metformin (Glucophage XR 500 mg Tab-ER) Contact prescribing physician if questions or concerns allopurinol (allopurinol 300 mg Tab) atorvastatin (atorvastatin 10 mg Tab) hydrochlorothiazide- losartan (hydrochlorothiazide -losartan 12.5 mg-100 mg oral tablet) levothyroxine (levothyroxine [...] AM EDT With: Shivani Limon MD Where: [facility] Invalid Interpretation Code [address] [place] [address]- \.br\ Tuesday 8:45 AM EST \.br\ With: Shivani Limon MD\.br\ Where: [facility] Office/Clini c Noteon 06-30-2023 Family Medicine Office/Clinic [...] qAM, # 90 tab(s), Refills(s) 1, Pharmacy: [facility]/pharmacy #[id number], 170.3, cm, 06/30/23 8:40:00 EDT, Height/Length Dosing, 111.6, kg, 06/30/23 8:40:00 EDT, Weight Dosing metformin, 1,000 mg = 2 tab(s), Oral, BID, # 390 tab(s), Refills(s) 0, Pharmacy: [facility]/pharmacy #6177, 170.3, cm, 06/30/23 8:40:00 EDT, Height/Length [...] Tab-ER, 1000 mg= 2 tab(s), Oral, BID hydrochlorothiazide- losartan 12.5 mg-100 mg oral tablet, 1 tab(s), [...] virus vaccine, inactivated 11/30/2022 Given SARS-CoV-2 (COVID-19) [id number] 02/01/2022 Recorded influenza virus vaccine, inactivated 01/07/2022 Recorded influenza virus vaccine, inactivated 01/09/2021 Recorded SARS-CoV-2 (COVID-19) mRNA BNT-162b2 vax 12/16/2020 Recorded 2022-05-28: TPV65 SARS-CoV-2 (COVID-19) mRNA BNT-162b2 vax 04/25/2020 Recorded 2022-05-28: TPV65 SARS-CoV-2 (COVID-19) mRNA BNT-162b2 vax 04/04/2020 Recorded 2022-05-28: TPV65 pneumococcal 13-valent vaccine 12/21/2019 Recorded influenza virus vaccine, inactivated 12/21/2019 Recorded Normal [facility] Comment on above: Result Comment: Elec tronically Signed By: Ashly HENDRICKS, Shivani Power.br\Date and Time Signed: 06/30/23 [...] numbers. This can be done either in [place] ([place] or metric measurements. Note that charts and online BMI calculators are available to help you find your BMI quickly and easily without having to do these calculations yourself. To calculate your BMI in [place] ([place] measurements: 1. Measure your weight in [...] for Disease Control and Prevention: www.cdc.gov ? [place] Heart [employer]: www.heart.org ? National Heart, Lung, and Blood [place]: www.nhlbi.nih.gov Summary ? Body mass index (BMI) is a number that is calculated from a person's weight and height. ? BMI may help estimate how much of a person's weight is composed of fat. BMI can help identify those who may be at higher risk for certain medical problems. ? BMI can be measured using [place]kinan measurements or metric measurements. ? BMI charts are used to identify whether you are underweight, normal weight, overweight, or obese. This information is not intended to replace advice given to you by your health care provider. Make sure you discuss any questions you have with your health care provider. Document Revised: 10/31/2019 Document Reviewed: 09/07/2019 [employer] Patient Education ? 2022 [employer]. [facility] Ambulatory Visit Summaryon 0 06-23-2023 Ambulatory Visit [...] Tab) canagliflozin (Invokana 100 mg oral tablet) hydrochlorothiazide- losartan (hydrochlorothiazide -losartan 12.5 mg-100 mg oral tablet) levothyroxine (levothyroxine [...] Appointments Tuesday 8:00 AM EST With: Where: [facility] Invalid Interpretation Code [address] [place] [address]- \.br\ Someone Will Contact You Regarding These Appointments\.br \ [facility] External Ambulatory Referral, Orthopaedics, Dr. Marmolejo, 06/23/23 8:25:00 EDT, Type 2 diabetes mellitus with hyperlipidemia [facility] Ambulatory Visit Summary JOCELYN HUSSEIN Cory :1955 Visit Date:06/23/2023 Ambulatory Visit Instructions [...] Tab) canagliflozin (Invokana 100 mg oral tablet) hydrochlorothiazide- losartan (hydrochlorothiazide -losartan 12.5 mg-100 mg oral tablet) levothyroxine (levothyroxine [...] Appointments Tuesday 8:00 AM EST With: Where: [facility] Invalid Interpretation Code [address] [place] [id number]- \.br\ Someone Will Contact You Regarding These Appointments\.br \ [facility] External Ambulatory Referral, Orthopaedics, Dr. Marmolejo, 06/23/23 8:25:00 EDT, Type 2 diabetes mellitus with hyperlipidemia [facility] CBC w/ Auto Diffon 4 Basophils/100 WBC (Bld) 0.9 % Normal 0.0-2.0 [facility] Comment on above: Performed By: #### 2 262472, 9721992, [id number], 73425268, 77023818, 0118316, 27449295, 9903506 ####[facility] [address] [place] [address] Basophils/Leukocytes Auto (Bld) [Pure # fraction] 0.1 E9/L Normal 0.0-0.2 [facility] Comment on above: Performed By: #### 2 013694, 3916610, 004489733, 70097629, 27943252, 9711780, 18910087, 7753002 ####[facility] [address] [place] [address] Eosinophils (Bld) [#/Vol] 0.6 E9/L High 0.0-0.5 [facility] Comment on above: Performed By: #### 2 394916, 1158011, 205535597, 86662781, 74156091, 1927870, 07284009, 4995693 ####[facility] [address] [place] [address] Eosinophils/100 WBC (Bld) 7.7 % Normal 0.0-8.0 [facility] Comment on above: Performed By: #### 2 231923, 9820415, 281600223, 41896420, 08059354, 2394438, 78565515, 4688417 ####[facility] [address] [place] [address] Erythrocyte distribution width (RBC) [Ratio] 13.9 % Normal 10.9-14.2 [facility] Comment on above: Performed By: #### 2 315211, 3588441, 865916757, 43820589, 72217038, 5776042, 16329665, 6052676 ####[facility] [address] [place] [address] Hematocrit (Bld) [Volume fraction] 42.0 % Normal 37.7-49.0 [facility] Comment on above: Performed By: #### 2 333659, 5012282, 455422328, 69557144, 68493307, 7377711, 48773243, 4430710 ####[address] [address] Hemoglobin (Bld) [Mass/Vol] 13.9 g/dL Normal 13.5-17.5 [facility] Comment on above: Performed By: #### 2 646719, 2868432, 770607264, 40195065, 80090464, 0421217, 92865941, 9096951 ####[address] [address] Lymphocytes (Bld) [#/Vol] 1.7 E9/L Normal 1.0-4.0 [facility] Comment on above: Performed By: #### 2 690345, 0806775, 728583640, 73515267, 15949345, 6268186, 09543066, 6652996 ####[facility] [address] [place] [address] Lymphocytes/100 WBC (Bld) 23.9 % Normal 14.0-50.0 [facility] Comment on above: Performed By: #### 2 583356, 0797177, 232579003, 59358089, 84312171, 5215883, 04383581, 5933565 ####[address] [address] MCH (RBC) [Entitic mass] 30.8 pg Normal 27.0-34.0 [facility] Comment on above: Performed By: #### 2 661885, 4788148, 019847356, 41657889, 29126519, 3708948, 20836595, 7726000 ####[facility] [address] [place] [address] MCHC (RBC) [Mass/Vol] 33.1 g/dL Normal 31.4-36.0 [facility] Comment on above: Performed By: #### 2 289905, 0510900, 357668237, 82040577, 55956214, 5718109, 67548321, 1016508 ####[address] [address] MCV (RBC) [Entitic vol] 93.0 fL Normal 80.0-100.0 [facility] Comment on above: Performed By: #### 2 880261, 1757402, 888794576, 16713946, 91554889, 2842426, 13749250, 2770327 ####[address] [address] Monocytes (Bld) [#/Vol] 0.8 E9/L Normal 0.2-1.0 [facility] Comment on above: Performed By: #### 2 336505, 7999636, 155259325, 48503410, 23666507, 6788615, 65816165, 6487327 ####[address] [address] Neutrophils (Bld) [#/Vol] 4.1 E9/L Normal 2.0-7.5 [facility] Comment on above: Performed By: #### 2 257960, 7563656, 736669533, 79454154, 68255836, 1081364, 33251100, 6314980 ####[address] [address] Neutrophils/100 WBC (Bld) 56.6 % Normal 36.0-75.0 [facility] Comment on above: Performed By: #### 2 825308, 7940671, 437759755, 88839872, 57790704, 8417109, 22914769, 4893842 ####[facility] [address] [place] [address] Platelet mean volume (Bld) [Entitic vol] 8.6 fL Normal 6.4-10.8 [facility] Comment on above: Performed By: #### 2 557799, 3923288, 032049873, 23257543, 98904229, 1316765, 55570766, 8205143 ####[place] [address] [place] [address] Platelets (Bld) [#/Vol] 193.0 E9/L Normal 150.0-500.0 [facility] Comment on above: Performed By: #### 2 565917, 3405743, 030954324, 35679867, 42493844, 1488150, 22862022, 3515952 ####[address] [address] RBC (Bld) [#/Vol] 4.5 E12/L Normal 4.3-5.9 [facility] Comment on above: Performed By: #### 2 525914, 8406647, 408976816, 45317466, 75529864, 0166923, 32461688, 1047236 ####[address] [address] WBC corrected for nucl RBC Auto (Bld) [#/Vol] 7.3 E9/L Normal 4.0-11.0 [facility] Comment on above: Performed By: #### 2 208907, 5401403, 042901035, 12960472, 92954052, 2929495, 05568567, 8199163 ####[place] [address] [place] [address] CHEMISTRYOrdered By: SYSTEM SYSTEM on 06-23-2023 Albumin [...] [Moles/Vol] 4.7 mmol/L Normal 3.5 - 5.3 mmol /L [facility] Prostate specific Ag [Mass/Vol] 3.5 ng/mL Normal 0.1 - 3.5 ng/mL [facility] Comment on above: Interpretive Data: T he concentration of PSA determined by different manufacturers can vary due to differences in assay methods and reagent specificity. Values obtained from different assay methods cannot be used interchangeably. The methodology used for this result was chemiluminescence using [employer] PSA reagent. Protein [Mass/Vol] 7.4 [...] (Bld) [Mass fraction] 10.0 % High <=5.9% [facility] ChemAutoSS CMPon 06-23-2023 Albumin [Mass/Vol] 4.3 g/dL Normal 3.3-5.0 [facility] Comment on above: Performed By: #### 2 284830, 5911931, 350187305, [id number], 76003897, 4769025, 37415252, 0098748 ####[facility] [address] [place] [address] Albumin/Globulin (S) [Mass conc ratio] 1.4 Normal 1.1-2.2 [facility] Comment on above: Performed By: #### 2 089709, 1292023, 154483239, 01086811, 18758094, 2243276, 18053706, 2354000 ####[facility] [address] [place] [address] ALP [Catalytic activity/Vol] 97 Int._Unit/L Normal 21-98 [facility] Comment on above: Performed By: #### 2 233254, 1864608, 179384142, 42903074, 47113272, 4100234, 20628087, 9904588 ####[facility] [address] [place] [address] ALT No additional P-5'-P [Catalytic activity/Vol] 17 Int._Unit/L Normal 6-46 [facility] Comment on above: Performed By: #### 2 593508, 5312576, 969581523, 37505815, 39101527, 0973855, 88663912, 1619388 ####[facility] [address] [place] [address] AST [Catalytic activity/Vol] 17 Int._Unit/L Normal 5-43 [facility] Comment on above: Performed By: #### 2 395304, 7190927, 594047768, 20011016, 10965650, 9429249, 76871910, 8495448 ####[facility] [address] [place] [address] Bilirubin [Mass/Vol] 0.7 mg/dL Normal 0.0-1.1 [facility] Comment on above: Performed By: #### 2 058594, 0609457, 505553988, 20542748, 85515691, 0941394, 70031760, 9823098 ####[facility] [address] [place] [address] Globulin (S) [Mass/Vol] 3.1 g/dL Normal 1.4-4.0 [facility] Comment on above: Performed By: #### 2 551674, 0271549, 275159391, 29370871, 01081339, 7050778, 52234776, 6615583 ####[facility] [address] [place] [address] Protein [Mass/Vol] 7.4 g/dL Normal 6.0-7.8 [facility] Comment on above: Performed By: #### 2 430755, 7636776, 186331982, 79827397, 94945264, 4360552, 80799245, 3659017 ####[facility] [address] [place] [address] Anion gap [Moles/Vol] 15 mmol/L Normal 6-16 [facility] Comment on above: Performed By: #### 2 200178, 9248935, 977195721, 60812967, 60737622, 5582430, 94653788, 5224839 ####[facility] [address] [place] [address] Calcium [Mass/Vol] 9.7 mg/dL Normal 8.9-11.1 [facility] Comment on above: Performed By: #### 2 911101, 9359273, 094786509, 23967160, 32133355, 9494214, 68932749, 6027785 ####[facility] [address] [place] [address] Chloride [Moles/Vol] 104 mmol/L Normal 101-111 [facility] Comment on above: Performed By: #### 2 812953, 8217184, 810110627, 31528302, 62001417, 3841957, 38411339, 6467995 ####[facility] [address] [place] [address] CO2 [Moles/Vol] 23 mmol/L Normal 21-31 [facility] Comment on above: Performed By: #### 2 760512, 4204637, 905914795, 99876988, 85029706, 0185476, 11118879, 2296975 ####[facility] [address] [place] [address] Creatinine [Mass/Vol] 1.4 mg/dL High 0.5-1.3 [facility] Comment on above: Performed By: #### 2 826132, 0446754, 954980159, 19947651, 74661729, 5277564, 51617781, 3939368 ####[facility] [address] [place] [address] Glucose [Mass/Vol] 217 mg/dL High 55-199 [facility] Comment on above: Performed By: #### 2 302920, 2808582, 085475292, 41402224, 08863168, 8775264, 28105678, 0645700 ####[facility] [address] [place] [address] Potassium [Moles/Vol] 4.7 mmol/L Normal 3.5-5.3 [facility] Comment on above: Performed By: #### 2 681851, 5987921, 353279828, 71635181, 50797617, 7770599, 55546635, 8010999 ####[facility] [address] [place] [address] Sodium [Moles/Vol] 137 mmol/L Normal 135-145 [facility] Comment on above: Performed By: #### 2 821680, 0055539, 696351780, 46128986, 96101942, 0599621, 91006500, 7417504 ####[facility] [address] [place] [address] Urea nitrogen [Mass/Vol] 33 mg/dL High 5-21 [facility] Comment on above: Performed By: #### 2 114654, 6809277, 959680409, 64792322, 08340006, 0998483, 47806353, 6363319 ####[facility] [address] [place] [address] Urea nitrogen/Creatinine [Mass ratio] 24 No Units High 10-20 [facility] Comment on above: Performed By: #### 2 305152, 3014918, 747952215, 97096915, 42528192, 3948328, 47058042, 7319948 ####[facility] [address] [place] [address] Family Medicine Office/Clini c Noteon 06-23-2023 Family [...] E&M of Est. Patient Moderate 30-39 Min 22261 [facility] External Ambulatory Referral [facility] External Ambulatory Referral HgbA1c Influenza immunization administered [...] E&M of Est. Patient Moderate 30-39 Min 16622 [facility] External Ambulatory Referral [facility] External Ambulatory Referral Uric Acid 3. Stage 3a chronic kidney disease (CKD) (N18.31: Chronic kidney disease, stage 3a) - Will recheck today Ordered: Body Mass Index (BMI) documented 3008F CBC w/ Auto Diff Complex E&M Add on G2211 Comprehensive Metabolic Panel Current tobacco non-user 1036F Depression Screening Negative 3352F E&M of Est. Patient Moderate 30-39 Min 64038 [facility] External Ambulatory Referral [facility] External Ambulatory Referral HgbA1c Influenza immunization administered [...] E&M of Est. Patient Moderate 30-39 Min 59969 [facility] External Ambulatory Referral [facility] External Ambulatory Referral HgbA1c Influenza immunization administered [...] E&M of Est. Patient Moderate 30-39 Min 58621 [facility] External Ambulatory Referral [facility] External Ambulatory Referral HgbA1c Influenza immunization administered or previously received 4274F Lipid Panel Microalbumin Level Urine Most recent diastolic blood pressure 80-89 mm Hg 3079F Patient s (more content not included)... Normal [facility] Comment on above: Result Comment: Elec tronically [...] Normal 4.0 - 11.0 E9/L Remisol Heme [id number] 06-23-2023 HbA1c (Bld) [Mass fraction] 10.0 % High <=5.9 [facility] Comment on above: Performed By: #### 2 195721, 1276093, 636122223, 75035440, 73008858, 8046314, 46828108, 0456613 ####[facility] [address] [place] [address] Lipid Panelon 06-23-2023 VLDL UTC Abnormal 7-40 [facility] Comment on above: Result Comment: 'ELLI BLE TO REPORT. TRIG > 400 mg/dl' Result verified by Discern Rule. Performed result UT (Unable to Calculate) was sent as an Alpha code due the inability to calculate a valid numeric value. Performed By: #### 2 705869, 2219075, 025637984, 52231066, 08646903, 6110890, 15928656, 6126441 ####[facility] [address] [place] [address] Cholesterol [Mass/Vol] 171 mg/dL Normal 120-200 [facility] Comment on above: Performed By: #### 2 962289, 0745895, 854341490, 80435949, 00840944, 9999502, 63349049, 5266872 ####[facility] [address] [place] [address] Cholesterol in HDL [Mass/Vol] 32 mg/dL Invalid Interpretation Code [facility] Comment on above: Result Comment: '>= 60 LOW RISK' '<= 40 HIGH RISK' Performed By: #### 2 912434, 7979542, 608091394, 76508725, 69998217, 5268729, 21070260, 1272563 ####[facility] [address] [place] [address] Cholesterol in LDL [Mass/Vol] 73 mg/dL Normal <=129 [facility] Comment on above: Performed By: #### 2 195060, 6485811, 421513008, 96669137, 01826299, 0189345, 61154454, 9498612 ####[facility] [address] [place] [address] Triglyceride [Mass/Vol] 431 mg/dL High <=149 [facility] Comment on above: Performed By: #### 2 776073, 8134399, 476076212, 07220098, 13820947, 8772672, 38446684, 9589489 ####[facility] [address] [place] [address] PSA Screen, Totalon 06-23-19 24 Prostate specific Ag [Mass/Vol] 3.5 ng/mL Normal 0.1-3.5 [facility] Comment on above: Result Comment: The concentration of PSA determined by different manufacturers can vary due to differences in assay methods and reagent specificity. Values obtained from different assay methods cannot be used interchangeably. The methodology used for this result was chemiluminescence using [employer]'s Access Hybritech PSA reagent. Performed By: #### 2 118612, 2039684, 208340598, 75431262, 11380306, 3635459, 49824268, 8711763 ####[facility] [address] [place] [address] Patient Educationon 06-23-19 Patient Education Nutrition BMI [...] numbers. This can be done either in [place]an ([place] or metric measurements. Note that charts and online BMI calculators are available to help you find your BMI quickly and easily without having to do these calculations yourself. To calculate your BMI in [place] ([place] measurements: 1. Measure your weight in [...] for Disease Control and Prevention: www.cdc.gov ? [place] Heart Association: www.heart.org ? National Heart, Lung, and Blood [place]: www.nhlbi.nih.gov Summary ? Body mass index (BMI) is a number that is calculated from a person's weight and height. ? BMI may help estimate how much of a person's weight is composed of fat. BMI can help identify those who may be at higher risk for certain medical problems. ? BMI can be measured using Burkinan measurements or metric measurements. ? BMI charts are used to identify whether you are underweight, normal weight, overweight, or obese. This information is not intended to replace advice given to you by your health care provider. Make sure you discuss any questions you have with your health care provider. Document Revised: 10/31/2019 Document Reviewed: 09/07/2019 [employer] Patient Education ? 2022 [employer]. Normal [facility] Physician Referralon 024 Physician Referral [id number] 4#1.00TIFF Normal [facility] Physician Referral [id number] 2#1.00TIFF Normal [facility] TSH With T4fr Reflexon 06-22 TSH Qn 2.61 m[IU]/L Normal 0.34-5.60 [facility] Comment on above: Performed By: #### 2 355622, 1515786, 153463358, 77776572, 68942717, 1792763, 68502075, 3923395 ####[facility] [address] [place] [address] U Microalbon 06-23-2023 Albumin DL <= 20 mg/L (U) [Mass/Vol] 15.0 mg/dL High 0.0-1.9 [facility] Comment on above: Order Comment: Jasmine babrour office Performed By: #### 1 6174004, [id number] ####[facility] [address] [facility] [address] U Protein/Creat Ratioon Protein/Creatinine (U) [Ratio] 37.90 mg/gm Cr Normal .00-200.00 [facility] Comment on above: Performed By: #### 1 1986736, [id number] ####[facility] [address] [place] [address] U Creatinine 82.0 mg/dL Invalid Interpretation Code [facility] Comment on above: Performed By: #### 1 0975902, 3377242756 ####[facility] [address] [place] [address] Ur Total Protein 31.1 mg/dL Invalid Interpretation Code [facility] Comment on above: Performed By: #### 1 6527778, 1207694558 ####[facility] [address] [place] [address] Uric Acidon 06-23-2023 Urate (U) [Mass/Vol] 4.6 mg/dL Normal 2.2-7.4 [facility] Comment on above: Performed By: #### 2 810543, 4523122, 517305944, 17756268, 09702568, 6577746, 45874723, 0277572 ####[facility] [address] [place] [address] eGFRon 06-23-2023 eGFR 54 mL/min/1.73 m2 Low >=59 [facility] Comment on above: Order Comment: Order added by Discern Expert. Performed By: #### 2 363849, 5714434, 202854595, 58794979, 70183960, 7984753, 80477683, 2971866 ####[facility] [address] [place] [address] Lab Reportson 04-26-2023 Lab Reports [id number] #1.00TIFF Normal [facility] CHEMISTRYOrdered By: Ro davidson on 12-01-2022 Albumin DL <= 20 mg/L (U) [Mass/Vol] 101.6 microgram/mL High 0.0 - 19.0 mcg/mL [facility] Remisol Albumin Elph (U) [Mass fraction] 19.4 mg/dL Invalid Interpretation Code [facility] Remisol Comment on above: Interpretive Data: T reference range and other method performance specifications have not been established for this test; results should be integrated into the clinical context for interpretation. Creatinine (U) [Mass/Vol] 135.6 mg/dL Invalid Interpretation Code [facility] Remisol Comment on above: Interpretive Data: T he reference range and other method performance specifications have not been established for this test; results should be integrated into the clinical context for interpretation. U Prot/Creat Ratio 143.10 mg/gm Cr Normal 0.00 - 200.00 mg/gm Cr [facility] Remisol CBC AUTO DIFFon 06-07-2022 BASO # 0.0 103/ul Normal 0.0-0.1 [facility] Comment on above: Performed By: #### C BC #### [facility] [address] [address] [address] Emiliano Sheehan Basophils/100 WBC (Bld) 0.6 % Normal 0.2-2.0 [facility] Comment on above: Performed By: #### C BC #### [facility] [address] [place] [address] Dr. Emiliano Sheehan EO # 0.5 103/ul Normal 0.0-0.7 [facility] Comment on above: Performed By: #### C BC #### [facility] [address] [address] [address] Emiliano Sheehan Eosinophils/100 WBC (Bld) 7.6 % Critically high 0.9-7.0 [facility] Comment on above: Performed By: #### C BC #### [facility] [address] [place] [address] Dr. Emiliano Sheehan Erythrocyte distribution width (RBC) [Ratio] 12.3 % Normal 11.0-15.0 [facility] Comment on above: Performed By: #### C BC #### [facility] [address] [address] [address] Emiliano Sheehan Hematocrit (Bld) [Volume fraction] 40.1 % Critically low 42.0-54.0 [facility] Comment on above: Performed By: #### C BC #### [facility] [address] [place] [address] Dr. Emiliano Sheehan Hemoglobin (Bld) [Mass/Vol] 13.4 g/dL Critically low 14.0-18.0 [facility] Comment on above: Performed By: #### C BC #### [facility] [address] [place] [address] Dr. Emiliano Sheehan IG # 0.03 10e3/ul Normal 0.00-0.03 [facility] Comment on above: Performed By: #### C BC #### [facility] [address] [place] [address] Dr. Emiliano Sheehan IG % 0.5 % Normal 0.0-0.5 [facility] Comment on above: Performed By: #### C BC #### [facility] [address] [place] [address] Dr. Emiliano Sheehan LYMPH # 1.9 103/ul Normal 1.2-3.8 [facility] Comment on above: Performed By: #### C BC #### [facility] [address] [place] [address] Dr. Emiliano Sheehan Lymphocytes/100 WBC (Bld) 29.5 % Normal 20.5-60.0 [facility] Comment on above: Performed By: #### C BC #### [facility] [address] [place] [address] Dr. Emiliano Sheehan MANUAL DIFF REQ NO Normal [facility] Comment on above: Performed By: #### C BC #### [facility] [address] [place] [address] Dr. Emiliano Sheehan MCH (RBC) [Entitic mass] 30.4 pg Normal 25.9-34.0 [facility] Comment on above: Performed By: #### C BC #### [facility] [address] [place] [address] Dr. Emiliano Sheehan MCHC (RBC) [Mass/Vol] 33.4 g/dL Normal 29.9-35.2 [facility] Comment on above: Performed By: #### C BC #### [facility] [address] [place] [address] Dr. Emiliano Sheehan MCV (RBC) [Entitic vol] 90.9 fL Normal 80.0-94.0 [facility] Comment on above: Performed By: #### C BC #### [facility] [address] [place] [address] Dr. Emiliano Sheehan MONO # 0.6 103/ul Normal 0.3-0.8 [facility] Comment on above: Performed By: #### C BC #### [facility] [address] [place] [address] Dr. Emiliano Sheehan Monocytes/100 WBC (Bld) 9.6 % Normal 1.7-12.0 [facility] Comment on above: Performed By: #### C BC #### [facility] [address] [place] [address] Dr. Emiliano Sheehan NEUT # 3.4 103/ul Normal 1.4-6.5 [facility] Comment on above: Performed By: #### C BC #### [facility] [address] [place] [address] Dr. Emiliano Sheehan Neutrophils/100 WBC (Bld) 52.2 % Normal 43.0-75.0 [facility] Comment on above: Performed By: #### C BC #### [facility] [address] [place] [address] Dr. Emiliano Sheehan Platelet mean volume (Bld) [Entitic vol] 9.0 fL Critically low 9.5-13.5 [facility] Comment on above: Performed By: #### C BC #### [facility] [address] [place] [address] Dr. Emiliano Sheehan PLT 205 103/ul Normal 150-450 [facility] Comment on above: Performed By: #### C BC #### [facility] [address] [place] [address] Dr. Emiliano Sheehan RBC 4.41 106/ul Critically low 4.70-6.10 [facility] Comment on above: Performed By: #### C BC #### [facility] [address] [place] [address] Dr. Emiliano Sheehan WBC 6.5 103/ul Normal 4.0-11.0 [facility] Comment on above: Performed By: #### C BC #### [facility] [address] [place] [address] Dr. Emiliano Sheehan FREE T3on 06-07-2022 FREE T3 2.37 pg/mlL Normal 2.18-3.98 [facility] Comment on above: Performed By: #### P SAD, FT4 #### [facility] [address] [place] [address] Dr. Emiliano Sheehan FREE T4on 06-07-2022 Free T4 [Mass/Vol] 1.37 ng/dL Normal 0.76-1.46 [facility] Comment on above: Performed By: #### P SAD, FT4 #### [facility] [address] [place] [address] Dr. Emiliano Sheehan GLYCOHEMOGLOBIN A1Con 2022 ADA RECOMMENDATION SEE BELOW Normal [facility] Comment on above: Result Comment: ADA RECOMMENDED LIMIT 4.0 - 6.0 ADA THERAPEUTIC TARGET < 7.0 ACTION SUGGESTED > 7.0 Performed By: #### P SAD, FT4 #### [facility] [address] [place] [address] Dr. Emiliano Sheehan Glucose [Mass/Vol] 206 mg/dL Normal [facility] Comment on above: Performed By: #### P SAD, FT4 #### [facility] [address] [place] [address] Dr. Emiliano Sheehan HbA1c (Bld) [Mass fraction] 8.8 % Critically high 4.5-6.2 [facility] Comment on above: Performed By: #### P SAD, FT4 #### [facility] [address] [place] [address] Dr. Emiliano Sheehan LIPID PROFILEon 06-07-2022 CHOL-HDL RATIO NORM SEE BELOW Normal [facility] Comment on above: Result Comment: 3.3 - 4.4 LOW RISK 4.4 - 7.1 AVERAGE RISK 7.1 - 11.0 MODERATE RISK >11.0 HIGH RISK Performed By: #### P SAD, FT4 #### [facility] [address] [place] [address] Dr. Emiliano Sheehan Cholesterol [Mass/Vol] 169 mg/dL Normal <=200 [facility] Comment on above: Performed By: #### P SAD, FT4 #### [facility] [address] [place] [address] Dr. Emiliano Sheehan Cholesterol in HDL [Mass/Vol] 37 mg/dL Critically low 40-60 [facility] Comment on above: Performed By: #### P SAD, FT4 #### [facility] [address] [address] [address] Emiliano Sheehan Cholesterol in LDL [Mass/Vol] 69.4 mg/dL Normal [facility] Comment on above: Performed By: #### P SAD, FT4 #### [facility] [address] [place] [address] Dr. Emiliano Sheehan Cholesterol.total/Chol esterol in HDL [Mass ratio] 4.6 {ratio} Normal [facility] Comment on above: Performed By: #### P SAD, FT4 #### [facility] [address] [place] [address] Dr. Emiliano Sheehan HDL NORMAL > or = 60 mg/dl - LOW CARDIOVASCULAR RISK <40 mg/dl - HIGH CARDIOVASCULAR RISK Normal [facility] Comment on above: Performed By: #### P SAD, FT4 #### [facility] [address] [place] [address] Dr. Emiliano Shehean LDL CALC NORMAL SEE BELOW Normal [facility] Comment on above: Result Comment: <100 mg/dl OPTIMAL 100 - 129 mg/dl NEAR OR ABOVE OPTIMAL 130 - 159 mg/dl BORDERLINE HIGH 160 - 189 mg/dl HIGH >190 mg/dl VERY HIGH Performed By: #### P SAD, FT4 #### [facility] [address] [place] [address] Dr. Emiliano Sheehan Triglyceride [Mass/Vol] 313 mg/dL Critically high <=150 [facility] Comment on above: Performed By: #### P SAD, FT4 #### [facility] [address] [place] [address] Dr. Emiliano Sheehan VLDL CALC 62.6 mg/dL Normal [facility] Comment on above: Performed By: #### P SAD, FT4 #### [facility] [address] [place] [address] Dr. Emiliano Sheehan PROF 14(COMP METB)on 023 Albumin [Mass/Vol] 4.0 g/dL Normal 3.4-5.0 [facility] Comment on above: Performed By: #### L IPID, CMP, FT3, URIC #### [facility] [address] [address] [address] Emiliano Sheehan Albumin/Globulin [Mass ratio] 1.1 {ratio} Normal [facility] Comment on above: Performed By: #### L IPID, CMP, FT3, URIC #### [facility] [address] [place] [address] Dr. Emiliano Sheehan ALP [Catalytic activity/Vol] 86 U/L Normal 46-116 [facility] Comment on above: Performed By: #### L IPID, CMP, FT3, URIC #### [facility] [address] [place] [address] Dr. Emiliano Sheehan ALT [Catalytic activity/Vol] 35 U/L Normal 16-63 [facility] Comment on above: Performed By: #### L IPID, CMP, FT3, URIC #### [facility] [address] [place] [address] Dr. Emiliano Sheehan Anion gap [Moles/Vol] 12.9 mmol/L Normal [facility] Comment on above: Performed By: #### L IPID, CMP, FT3, URIC #### [facility] [address] [place] [address] Dr. Emiliano Sheehan AST [Catalytic activity/Vol] 17 U/L Normal 15-37 [facility] Comment on above: Performed By: #### L IPID, CMP, FT3, URIC #### [facility] [address] [place] [address] Dr. Emiliano Sheehan Bilirubin [Mass/Vol] 0.4 mg/dL Normal 0.2-1.0 [facility] Comment on above: Performed By: #### L IPID, CMP, FT3, URIC #### [facility] [address] [place] [address] Dr. Emiliano Sheehan Calcium [Mass/Vol] 9.1 mg/dL Normal 8.5-10.1 [facility] Comment on above: Performed By: #### L IPID, CMP, FT3, URIC #### [facility] [address] [address] [address] Emiliano Sheehan Chloride [Moles/Vol] 103 mmol/L Normal 98-107 [facility] Comment on above: Performed By: #### L IPID, CMP, FT3, URIC #### [facility] [address] [address] [address] Emiliano Sheehan CO2 [Moles/Vol] 25.6 mmol/L Normal 21.0-32.0 [facility] Comment on above: Performed By: #### L IPID, CMP, FT3, URIC #### [facility] [address] [address] [address] Emiliano Sheehan Creatinine [Mass/Vol] 1.28 mg/dL Normal 0.70-1.30 [facility] [facility] Comment on above: Performed By: #### L IPID, CMP, FT3, URIC #### [facility] [address] [place] [address] Dr. Emiliano Sheehan EGFR-AF FIJIAN >60 Normal >=60 [facility] Comment on above: Performed By: #### L IPID, CMP, FT3, URIC #### [facility] [address] [place] [address] Dr. Emiliano Sheehan EGFR-NON AF FIJIAN 56 mL/min/1.73m2 Critically low >=60 [facility] Comment on above: Performed By: #### L IPID, CMP, FT3, URIC #### [facility] [address] [address] [address] Emiliano Sheehan Globulin (S) [Mass/Vol] 3.7 g/dL Normal [facility] Comment on above: Performed By: #### L IPID, CMP, FT3, URIC #### [facility] [address] [address] [address] Emiliano Sheehan Glucose [Mass/Vol] 210 mg/dL Critically high 74-[address] [facility] Comment on above: Performed By: #### L IPID, CMP, FT3, URIC #### [facility] [address] [address] [address] Emiliano Sheehan Potassium [Moles/Vol] 4.5 mmol/L Normal 3.5-5.1 [facility] Comment on above: Performed By: #### L IPID, CMP, FT3, URIC #### [facility] [address] [place] [address] Dr. Emiliano Sheehan Protein [Mass/Vol] 7.7 g/dL Normal 6.4-8.2 [facility] Comment on above: Performed By: #### L IPID, CMP, FT3, URIC #### [facility] [address] [place] [address] Dr. Emiliano Sheehan Sodium [Moles/Vol] 137 mmol/L Normal 136-145 [facility] Comment on above: Performed By: #### L IPID, CMP, FT3, URIC #### [facility] [address] [place] [address] Dr. Emiliano Sheehan Urea nitrogen [Mass/Vol] 19.0 mg/dL Critically high 7.0-18.0 [facility] Comment on above: Performed By: #### L IPID, CMP, FT3, URIC #### [facility] [address] [place] [address] Dr. Emiliano Sheehan Urea nitrogen/Creatinine [Mass ratio] 14.8 mg/mg Normal [facility] Comment on above: Performed By: #### L IPID, CMP, FT3, URIC #### [facility] [address] [place] [address] Dr. Emiliano Sheehan URIC ACID SERUMon 06-07-2022 Urate [Mass/Vol] 3.5 mg/dL Normal 3.5-7.2 [facility] Comment on above: Performed By: #### P SAD, FT4 #### [facility] [address] [place] [address] Dr. Emiliano Sheehan FREE T3on 02-11-2022 FREE T3 2.33 pg/mlL Normal 2.18-3.98 [facility] Comment on above: Performed By: #### P SAD, FT4 #### [facility] [address] [place] [address] Dr. Emiliano Sheehan FREE T4on 02-11-2022 Free T4 [Mass/Vol] 1.20 ng/dL Normal 0.76-1.46 [facility] Comment on above: Performed By: #### F T4 #### [facility] [address] [place] [address] Dr. Emiliano Sheehan TSHon 02-11-2022 TSH 2.124 uIU/mL Normal 0.358-3.740 [facility] Comment on above: Performed By: #### P SAD, FT4 #### [facility] [address] [place] [address] Dr. Emiliano Sheehan POINT OF CARE GLUCOSEon Glucose [Mass/Vol] 205 mg/dL Critically high 74-[address] [facility] Comment on above: Performed By: #### P SAD, FT4 #### [facility] [address] [place] [address] Dr. Emiliano Sheehan Covid-19 PCR (CVDTBH)on SARS-CoV-2 (COVID-19) RNA LUIS+probe Ql (Unsp spec) Not detected Normal NOT DETECTED [facility] Comment on above: Result Comment: This test is not yet approved or cleared by the [place] FDA. When there are no FDA-approved or cleared tests available, and other criteria are met, FDA can make tests available under an emergency access mechanism called an Emergency Use Authorization (EUA). The EUA for this test is supported by the It Project Coordinator of Health and Human Service's (HHS's) declaration [...] consistent with SARS-CoV-2. Performed By: #### C VDTBH #### [facility] [address] [place] [address] Dr. Emiliano Sheehan GLYCOHEMOGLOBIN A1Con 2021 ADA RECOMMENDATION SEE BELOW Normal [facility] Comment on above: Result Comment: ADA RECOMMENDED LIMIT 4.0 - 6.0 ADA THERAPEUTIC TARGET < 7.0 ACTION SUGGESTED > 7.0 Performed By: #### P SAD, FT4 #### [facility] [address] [place] [address] Dr. Emiliano Sheehan Glucose [Mass/Vol] 177 mg/dL Normal [facility] Comment on above: Performed By: #### P SAD, FT4 #### [facility] [address] [place] [address] Dr. Emiliano Sheehan HbA1c (Bld) [Mass fraction] 7.8 % Critically high 4.5-6.2 [facility] Comment on above: Performed By: #### P SAD, FT4 #### [facility] [address] [place] [address] Dr. Emiliano Sheehan CBC AUTO DIFFon 12-01-2021 BASO # 0.0 103/ul Normal 0.0-0.1 [facility] Comment on above: Performed By: #### P SAD, FT4 #### [facility] [address] [place] [address] Dr. Emiliano Sheehan Basophils/100 WBC (Bld) 0.5 % Normal 0.2-2.0 [facility] Comment on above: Performed By: #### P SAD, FT4 #### [facility] [address] [place] [address] Dr. Emiliano Sheehan EO # 0.5 103/ul Normal 0.0-0.7 [facility] Comment on above: Performed By: #### P SAD, FT4 #### [facility] [address] [place] [address] Dr. Emiliano Sheehan Eosinophils/100 WBC (Bld) 5.7 % Normal 0.9-7.0 [facility] Comment on above: Performed By: #### P SAD, FT4 #### [facility] [address] [place] [address] Dr. Emiliano Sheehan Erythrocyte distribution width (RBC) [Ratio] 12.8 % Normal 11.0-15.0 [facility] Comment on above: Performed By: #### P SAD, FT4 #### [facility] [address] [place] [address] Dr. Emiliano Sheehan Hematocrit (Bld) [Volume fraction] 39.5 % Critically low 42.0-54.0 [facility] Comment on above: Performed By: #### P SAD, FT4 #### [facility] [address] [place] [address] Dr. Emiliano Sheehan Hemoglobin (Bld) [Mass/Vol] 12.9 g/dL Critically low 14.0-18.0 [facility] Comment on above: Performed By: #### P SARIAH, FT4 #### [facility] [address] [place] [address] Dr. Emiliano Sheehan IG # 0.03 10e3/ul Normal 0.00-0.03 [facility] Comment on above: Performed By: #### P SARIAH, FT4 #### [facility] [address] [place] [address] Dr. Emiliano Sheehan IG % 0.3 % Normal 0.0-0.5 [facility] Comment on above: Performed By: #### P SARIAH, FT4 #### [facility] [address] [place] [address] Dr. Emiliano Sheehan LYMPH # 2.3 103/ul Normal 1.2-3.8 [facility] Comment on above: Performed By: #### P SARIAH, FT4 #### [facility] [address] [place] [address] Dr. Emiliano Sheehan Lymphocytes/100 WBC (Bld) 26.7 % Normal 20.5-60.0 [facility] Comment on above: Performed By: #### P SAD, FT4 #### [facility] [address] [place] [address] Dr. Emiliano Sheehan MANUAL DIFF REQ NO Normal [facility] Comment on above: Performed By: #### P SAD, FT4 #### [facility] [address] [place] [address] Dr. Emiliano Sheehan MCH (RBC) [Entitic mass] 31.2 pg Normal 25.9-34.0 [facility] Comment on above: Performed By: #### P SARIAH, FT4 #### [facility] [address] [place] [address] Dr. Emiliano Sheehan MCHC (RBC) [Mass/Vol] 32.7 g/dL Normal 29.9-35.2 [facility] Comment on above: Performed By: #### P SARIAH, FT4 #### [facility] [address] [place] [address] Dr. Emiliano Sheehan MCV (RBC) [Entitic vol] 95.6 fL Critically high 80.0-94.0 [facility] Comment on above: Performed By: #### P SARIAH, FT4 #### [facility] [address] [place] [address] Dr. Emiliano Sheehan MONO # 0.8 103/ul Normal 0.3-0.8 [facility] Comment on above: Performed By: #### P SARIAH, FT4 #### [facility] [address] [place] [address] Dr. Emiliano Sheehan Monocytes/100 WBC (Bld) 9.4 % Normal 1.7-12.0 [facility] Comment on above: Performed By: #### P SARIAH, FT4 #### [facility] [address] [place] [address] Dr. Emiliano Sheehan NEUT # 4.9 103/ul Normal 1.4-6.5 [facility] Comment on above: Performed By: #### P SARIAH, FT4 #### [facility] [address] [place] [address] Dr. Emiliano Sheehan Neutrophils/100 WBC (Bld) 57.4 % Normal 43.0-75.0 [facility] Comment on above: Performed By: #### P SARIAH, FT4 #### [facility] [address] [place] [address] Dr. Emiliano Sheehan Platelet mean volume (Bld) [Entitic vol] 8.8 fL Critically low 9.5-13.5 [facility] Comment on above: Performed By: #### P SARIAH, FT4 #### [facility] [address] [address] [address] Emiliano Sheehan PLT 210 103/ul Normal 150-450 [facility] Comment on above: Performed By: #### P SAD, FT4 #### [facility] [address] [place] [address] Dr. Emiliano Sheehan RBC 4.13 106/ul Critically low 4.70-6.10 [facility] Comment on above: Performed By: #### P SAD, FT4 #### [facility] [address] [place] [address] Dr. Emiliano Sheehan WBC 8.6 103/ul Normal 4.0-11.0 [facility] Comment on above: Performed By: #### P SAD, FT4 #### [facility] [address] [place] [address] Dr. Emiliano Sheehan FREE T3on 12-01-2021 FREE T3 2.20 pg/mlL Normal 2.18-3.98 [facility] Comment on above: Performed By: #### T SH, FT3, LIPID, CMP #### [facility] [address] [place] [address] Dr. Emiliano Sheehan FREE T4on 12-01-2021 Free T4 [Mass/Vol] 1.11 ng/dL Normal 0.76-1.46 [facility] Comment on above: Performed By: #### P SAD, FT4 #### [facility] [address] [place] [address] Dr. Emiliano Sheehan LIPID PROFILEon 12-01-2021 CHOL-HDL RATIO NORM SEE BELOW Normal [facility] Comment on above: Result Comment: 3.3 - 4.4 LOW RISK 4.4 - 7.1 AVERAGE RISK 7.1 - 11.0 MODERATE RISK >11.0 HIGH RISK Performed By: #### T SH, FT3, LIPID, CMP #### [facility] [address] [place] [address] Dr. Emiliano Sheehan Cholesterol [Mass/Vol] 146 mg/dL Normal <=200 [facility] Comment on above: Performed By: #### T SH, FT3, LIPID, CMP #### [facility] [address] [address] [address] Emiliano Sheehan Cholesterol in HDL [Mass/Vol] 41 mg/dL Normal 40-60 [facility] Comment on above: Performed By: #### T SH, FT3, LIPID, CMP #### [facility] [address] [address] [address] Emiliano Sheehan Cholesterol in LDL [Mass/Vol] 59.8 mg/dL Normal [facility] Comment on above: Performed By: #### T SH, FT3, LIPID, CMP #### [facility] [address] [address] [address] Emiliano Sheehan Cholesterol.total/Chol esterol in HDL [Mass ratio] 3.6 {ratio} Normal [facility] Comment on above: Performed By: #### T SH, FT3, LIPID, CMP #### [facility] [address] [place] [address] Dr. Emiliano Sheehan HDL NORMAL > or = 60 mg/dl - LOW CARDIOVASCULAR RISK <40 mg/dl - HIGH CARDIOVASCULAR RISK Normal [facility] Comment on above: Performed By: #### T SH, FT3, LIPID, CMP #### [facility] [address] [place] [address] Dr. Emiliano Sheehan LDL CALC NORMAL SEE BELOW Normal [facility] Comment on above: Result Comment: <100 mg/dl OPTIMAL 100 - 129 mg/dl NEAR OR ABOVE OPTIMAL 130 - 159 mg/dl BORDERLINE HIGH 160 - 189 mg/dl HIGH >190 mg/dl VERY HIGH Performed By: #### T SH, FT3, LIPID, CMP #### [facility] [address] [place] [address] Dr. Emiliano Sheehan Triglyceride [Mass/Vol] 226 mg/dL Critically high <=150 [facility] Comment on above: Performed By: #### T SH, FT3, LIPID, CMP #### [facility] [address] [place] [address] Dr. Emiliano Sheehan VLDL CALC 45.2 mg/dL Normal [facility] Comment on above: Performed By: #### T SH, FT3, LIPID, CMP #### [facility] [address] [place] [address] Dr. Emiliano Sheehan PROF 14(COMP METB)on 022 Albumin [Mass/Vol] 4.2 g/dL Normal 3.4-5.0 [facility] Comment on above: Performed By: #### T SH, FT3, LIPID, CMP #### [facility] [address] [place] [address] Dr. Emiliano Sheehan Albumin/Globulin [Mass ratio] 1.2 {ratio} Normal [facility] Comment on above: Performed By: #### T SH, FT3, LIPID, CMP #### [facility] [address] [place] [address] Dr. Emiliano Sheehan ALP [Catalytic activity/Vol] 82 U/L Normal 46-116 [facility] Comment on above: Performed By: #### T SH, FT3, LIPID, CMP #### [facility] [address] [place] [address] Dr. Emiliano Sheehan ALT [Catalytic activity/Vol] 26 U/L Normal 16-63 [facility] Comment on above: Performed By: #### T SH, FT3, LIPID, CMP #### [facility] [address] [place] [address] Dr. Emiliano Sheehan Anion gap [Moles/Vol] 13.1 mmol/L Normal [facility] Comment on above: Performed By: #### T SH, FT3, LIPID, CMP #### [facility] [address] [place] [address] Dr. Emiliano Sheehan AST [Catalytic activity/Vol] 12 U/L Critically low 15-37 [facility] Comment on above: Performed By: #### T SH, FT3, LIPID, CMP #### [facility] [address] [place] [address] Dr. Emiliano Sheehan Bilirubin [Mass/Vol] 0.8 mg/dL Normal 0.2-1.0 [facility] Comment on above: Performed By: #### T SH, FT3, LIPID, CMP #### [facility] [address] [place] [address] Dr. Emiliano Sheehan Calcium [Mass/Vol] 9.2 mg/dL Normal 8.5-10.1 [facility] Comment on above: Performed By: #### T SH, FT3, LIPID, CMP #### [facility] [address] [address] [address] Emiliano Sheehan Chloride [Moles/Vol] 103 mmol/L Normal 98-107 [facility] Comment on above: Performed By: #### T SH, FT3, LIPID, CMP #### [facility] [address] [address] [address] Emiliano Sheehan CO2 [Moles/Vol] 27.2 mmol/L Normal 21.0-32.0 [facility] Comment on above: Performed By: #### T SH, FT3, LIPID, CMP #### [facility] [address] [place] [address] Dr. Emiliano Sheehan Creatinine [Mass/Vol] 1.22 mg/dL Normal 0.70-1.30 [facility] Comment on above: Performed By: #### T SH, FT3, LIPID, CMP #### [facility] [address] [place] [address] Dr. Emiliano Sheehan EGFR-AF FIJIAN >60 Normal >=60 [facility] Comment on above: Performed By: #### T SH, FT3, LIPID, CMP #### [facility] [address] [place] [address] Dr. Emiliano Sheehan EGFR-NON AF FIJIAN 59 mL/min/1.73m2 Critically low >=60 [facility] Comment on above: Performed By: #### T SH, FT3, LIPID, CMP #### [facility] [address] [place] [address] Dr. Emiliano Sheehan Globulin (S) [Mass/Vol] 3.5 g/dL Normal [facility] Comment on above: Performed By: #### T SH, FT3, LIPID, CMP #### [facility] [address] [place] [address] Dr. Emiliano Sheehan Glucose [Mass/Vol] 159 mg/dL Critically high 74-106 [facility] Comment on above: Performed By: #### T SH, FT3, LIPID, CMP #### [facility] [address] [place] [address] Dr. Emiliano Sheehan Potassium [Moles/Vol] 4.3 mmol/L Normal 3.5-5.1 [facility] Comment on above: Performed By: #### T SH, FT3, LIPID, CMP #### [facility] [address] [place] [address] Dr. Emiliano Sheehan Protein [Mass/Vol] 7.7 g/dL Normal 6.4-8.2 [facility] Comment on above: Performed By: #### T SH, FT3, LIPID, CMP #### [facility] [address] [place] [address] Dr. Emiliano Sheehan Sodium [Moles/Vol] 139 mmol/L Normal 136-145 [facility] Comment on above: Performed By: #### T SH, FT3, LIPID, CMP #### [facility] [address] [place] [address] Dr. Emiliano Sheehan Urea nitrogen [Mass/Vol] 19.0 mg/dL Critically high 7.0-18.0 [facility] Comment on above: Performed By: #### T SH, FT3, LIPID, CMP #### [facility] [address] [place] [address] Dr. Emiliano Sheehan Urea nitrogen/Creatinine [Mass ratio] 15.6 mg/mg Normal [facility] Comment on above: Performed By: #### T SH, FT3, LIPID, CMP #### [facility] [address] [place] [address] Dr. Emiliano Sheehan TSHon 12-01-2021 TSH 4.588 uIU/mL Critically high 0.358-3.740 [facility] Comment on above: Performed By: #### T SH, FT3, LIPID, CMP #### [facility] [address] [place] [address] Dr. Emiliano Sheehan Vital Signs Date Time Vital Sign Value Performing Clinician Facility 12-27-2023 13:07-0500 Hourly Rounding Jose Solis [facility] 12-27-2023 13:07-0500 Promise to Return Jose Szynkowski [facility] 12-27-2023 12:07-0500 Hourly Rounding Jose Szynkowski [facility] 12-27-2023 12:07-0500 Promise to Return Jose Szynkowski [facility] 12-27-2023 11:17-0500 Diastolic blood pressure 84 mm[Hg] Jose Szynkowski [facility] 12-27-2023 11:17-0500 Heart rate 74 /min Jose Szynkowski [facility] 12-27-2023 11:17-0500 Mean blood pressure 105 mm[Hg] Jose Szynkowski [facility] 12-27-2023 11:17-0500 Systolic blood pressure 147 mm[Hg] Jose Szynkowski [facility] 12-27-2023 11:10-0500 Hourly Rounding Jose Szynkowski [facility] 12-27-2023 11:10-0500 Promise to Return Jose Szynkowski [facility] 12-27-2023 11:07-0500 Heart rate 77 /min Jose Szynkowski [facility] 12-27-2023 11:07-0500 SaO2% (BldA) [Mass fraction] 97 % Jose Szynkowski [facility] 12-27-2023 11:07-0500 Diastolic blood pressure 90 mm[Hg] Jose Szynkowski [facility] 12-27-2023 11:07-0500 Mean blood pressure 113 mm[Hg] Jose Szynkowski [facility] 12-27-2023 11:07-0500 Systolic blood pressure 160 mm[Hg] Jose Szynkowski [facility] 12-27-2023 11:06-0500 Body temperature 97.7 [degF] Jose Szynkowski [facility] 12-27-2023 08:17-0500 Diastolic blood pressure 80 mm[Hg] Jose Szynkowski [facility] 12-27-2023 08:17-0500 Heart rate 76 /min Jose Szynkowski [facility] 12-27-2023 08:17-0500 Systolic blood pressure 151 mm[Hg] Jose Szynkowski [facility] 12-27-2023 07:29-0500 Heart rate 76 /min Jose Szynkowski [facility] 12-27-2023 07:29-0500 SaO2% (BldA) [Mass fraction] 96 % Jose Szynkowski [facility] 12-27-2023 07:26-0500 Mean blood pressure 103 mm[Hg] Jose Szynkowski [facility] 12-27-2023 07:26-0500 Body temperature 98.06 [degF] Jose Szynkowski [facility] 12-27-2023 04:32-0500 Body temperature 97.88 [degF] Jose Szynkowski [facility] 12-27-2023 04:32-0500 Heart rate 77 /min Jose Szynkowski [facility] 12-27-2023 04:32-0500 Mean blood pressure 110 mm[Hg] Jose Szynkowski [facility] 12-27-2023 04:32-0500 Respiratory rate 16 /min Jose Szynkowski [facility] 12-27-2023 04:32-0500 SaO2% (BldA) [Mass fraction] 98 % Jose Szynkowski [facility] 12-27-2023 00:22-0500 Body temperature 97.88 [degF] Jose Szynkowski [facility] 12-27-2023 00:22-0500 Heart rate 76 /min Jose Szynkowski [facility] 12-27-2023 00:22-0500 Mean blood pressure 97 mm[Hg] Jose Szynkowski [facility] 12-27-2023 00:22-0500 Respiratory rate 16 /min Jose Szynkowski [facility] 12-26-2023 21:53-0500 Blood Pressure Location Jose Szynkowski [facility] 12-26-2023 21:53-0500 Body temperature 98.24 [degF] Jose Szynkowski [facility] 12-26-2023 21:53-0500 Heart rate 79 /min Jose Szynkowski [facility] 12-26-2023 21:00-0500 gluc 154 mg/dL Jose Szynkowski [facility] 12-21-2023 13:34-0400 Body height 170.2 cm Hugo Murcek DO Work Phone: [facility] 12-21-2023 13:34-0400 Body mass index (BMI) [Ratio] 35.24 kg/m2 Hugo Murcek DO Work Phone: [facility] 12-21-2023 13:34-0400 Body weight 102.06 kg Hugo Murcek DO Work Phone: [facility] 12-14-2023 11:05-0400 Body height 170.2 cm Pacc 2 Work Phone: [facility] 12-14-2023 11:05-0400 Body mass index (BMI) [Ratio] 36.81 kg/m2 Pac 2 Work Phone: [facility] 12-14-2023 11:05-0400 Body weight 106.59 kg Pac 2 Work Phone: [facility] 11-16-2023 14:36-0400 Body height 170.2 cm Hugo Murcek DO Work Phone: [facility] 11-16-2023 14:36-0400 Body mass index (BMI) [Ratio] 35.24 kg/m2 Hugo Murcek DO Work Phone: [facility] 11-16-2023 14:36-0400 Body weight 102.06 kg Hugo Murcek DO Work Phone: [facility] 11-04-2023 14:58-0400 Diastolic blood pressure 75 mm[Hg] MD Shivani Limon Work Phone: [facility] 11-04-2023 14:58-0400 Heart rate 87 /min MD Shivani Limon Work Phone: [facility] 11-04-2023 14:58-0400 Respiratory rate 16 /min MD Shivani Limon Work Phone: [facility] 11-04-2023 14:58-0400 SaO2% (BldA) [Mass fraction] 94 % MD Shivani Limon Work Phone: [facility] 11-04-2023 14:58-0400 Systolic blood pressure 125 mm[Hg] MD Shivani Limon Work Phone: [facility] 11-04-2023 11:31-0400 Body height 167.64 cm MD Shivani Limon Work Phone: [facility] 11-04-2023 11:31-0400 Body temperature 98.7 [degF] MD Shivani Limon Work Phone: [facility] 11-04-2023 11:31-0400 Body weight 104.32 kg MD Shivani Limon Work Phone: [facility] 10-31-2023 14:41-0400 Body height 170.2 cm Hugo Power DO Work Phone: [facility] 10-31-2023 14:41-0400 Body mass index (BMI) [Ratio] 35.24 kg/m2 Hugo Power DO Work Phone: [facility] 10-31-2023 14:41-0400 Body weight 102.06 kg Hugo Power DO Work Phone: [facility] 01-03-2023 08:28-0500 Blood Pressure Location [facility] 01-03-2023 08:28-0500 Diastolic blood pressure 80 mm[Hg] [facility] 01-03-2023 08:28-0500 Heart rate 70 /min [facility] 01-03-2023 08:28-0500 Respiratory rate 16 /min [facility] 01-03-2023 08:28-0500 SaO2% (BldA) [Mass fraction] 99 % [facility] 01-03-2023 08:28-0500 Systolic blood pressure 132 mm[Hg] [facility] 12-23-2021 15:56-0400 Blood Pressure Location Stephanie MATHEWS [facility] 12-23-2021 15:56-0400 Diastolic blood pressure 96 mm[Hg] Stephanie MATHEWS [facility] 12-23-2021 15:56-0400 Heart rate 76 /min Stephanie BADILLOL [facility] [place] 12-23-2021 15:56-0400 Respiratory rate 16 /min Stephanie BADILLOL [facility] 12-23-2021 15:56-0400 Systolic blood pressure 132 mm[Hg] Stephanie BADILLOL [facility] [place] Encounters Encounter Date Encounter Type Care Provider Facility Start: 01-08-2025 ambulatory Shivani Limon Facility :[facility] Start: 01-30-2024 End: 01-30-2024 ambulatory Delmy Weber MD Facility: [place] Start: 01-16-2024 End: 01-16-2024 ambulatory Delmy Weber MD Facility:[facility] Start: 01-11-2024 End: 01-11-2024 ambulatory Henrique Bright Facility:[facility] Start: 01-11-2024 End: 01-11-2024 Patient encounter procedure Henrique Bright [facility] Start: 01-09-2024 End: 01-09-2024 Lab Drop off Shivani Limon [facility] Start: 01-09-2024 End: 01-09-2024 ambulatory Fidelina CONKLIN Facility: [place] Start: 01-02-2024 End: 01-02-2024 ambulatory [facility] Start: 12-28-2023 ambulatory Shivani Limon Facility :CD:[id number] Start: 12-26-2023 End: 12-27-2023 ambulatory Jose Solis Facility:[facility] Start: 12-26-2023 End: 12-27-2023 Observation Jose Solis [facility] Start: 12-23-2023 ambulatory Shivani Limon Facility:[facility] Start: 12-22-2023 End: 12-22-2023 ambulatory Shivani Limon Facility:[facility] [place] Start: 12-21-2023 End: 12-21-2023 Bamboo flowsheet Hugo Power DO Work Phone: [facility] Start: 12-21-2023 End: 12-21-2023 Bamboo flowsheet Hugo Power DO Work Phone: [facility] Start: 12-21-2023 End: 12-21-2023 Postop follow up visit related to original px Hugo Power DO Work Phone: [facility] Comment on above: Skin cancer of nose (Primary Dx) Start: 12-21-2023 End: 12-21-2023 ambulatory HUGO POWER Not Available Start: 12-20-2023 End: 12-20-2023 Telephone encounter Lydia Logan RN [facility] Comment on above: Radiology Pre Proced ure Instructions Start: 12-20-2023 ambulatory SHIVANI LIMON Facility: [facility] Start: 12-20-2023 End: 12-20-2023 Subsequent hospital visit by physician Mri Anes/Anxiolysis [facility] Start: 12-20-2023 End: 12-20-2023 Subsequent hospital visit by physician Mri Radio [facility] (I-Stat/1.5t) Radiology Comment on above: Sciatica, right side [M54.31] Start: 12-20-2023 End: 12-20-2023 ambulatory UNKNOWN PROVIDER Facility:[facility] Start: 12-19-2023 End: 12-19-2023 Telephone encounter Lorena Simons RN [facility] Comment on above: MRI Appointment Start: 12-14-2023 End: 12-14-2023 ambulatory CASPER WOMACK Facility:[facility] Start: 12-14-2023 Encounter for other preprocedural examination CASPER WOMACK [facility] Start: 12-14-2023 End: 12-14-2023 Admission to establishment [...] Preprocedural examination done Pac 2 Work Phone: [facility] Work Phone: Start: 12-07-2023 End: 12-07-2023 Telephone encounter Amna Escalera RN MRI Q Comment on above: Appointment (Hakan Webber) Returning Patient's Call Start: 11-16-2023 End: 11-16-2023 Postop follow up visit related to original px Hugo Power DO Work Phone: [facility] Comment on above: Skin cancer of nose (Primary Dx) Start: 11-16-2023 End: 11-16-2023 ambulatory HUGO POWER Not Available Start: 11-16-2023 End: 11-16-2023 Bamboo flowsheet Hugo Power DO Work Phone: [facility] Start: 11-16-2023 End: 11-16-2023 Bamboo flowsheet Hugo Power DO Work Phone: [facility] Start: 11-04-2023 End: 11-04-2023 ambulatory HUGO POWER Not Available Start: 11-04-2023 End: 11-05-2023 External Result Encounter Hugo Power DO Work Phone: [facility] Unsolicited Start: 11-04-2023 End: 11-05-2023 External Result Encounter Hugo Power DO Work Phone: [facility] Unsolicited Start: 11-04-2023 End: 11-04-2023 Patient encounter procedure Hugo Power DO Work Phone: [facility] Comment on above: Skin cancer of nose (Primary Dx) Start: 11-04-2023 End: 11-04-2023 Admission to same day surgery center MD Shivani Limon Work Phone: [facility] [place] Start: 11-04-2023 End: 11-04-2023 ambulatory MD Shivani Limon Work Phone: [facility] Work Phone: Start: 11-01-2023 End: 11-01-2023 External Result Encounter Hugo Power DO Work Phone: [facility] Unsolicited Start: 11-01-2023 End: 11-01-2023 External Result Encounter Hugo Power DO Work Phone: [facility] External [facility] Unsolicited Start: 11-01-2023 End: 11-01-2023 Patient encounter procedure MD Shivani Limon Work Phone: [facility] Work Phone: Start: 11-01-2023 End: 11-01-2023 ambulatory MD Shivani Limon Work Phone: [facility] Work Phone: Start: 11-01-2023 Encounter for preprocedural laboratory examination Hugo Power [facility] Start: 10-31-2023 End: 10-31-2023 Office outpatient new 45 minutes Hugo Power DO Work Phone: [facility] [place] Comment on above: 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) Start: 10-31-2023 End: 10-31-2023 ambulatory HUGO POWER Not Available Start: 10-31-2023 End: 10-31-2023 Bamboo flowsheet Hugo Power DO Work Phone: [facility] [place] Start: 10-31-2023 End: 10-31-2023 Bamboo flowsheet Hugo Power DO Work Phone: [facility] [place] Start: 10-13-2023 End: 10-13-2023 ambulatory MD Shivani Limon Facility:[facility] [place] Start: 10-12-2023 End: 10-12-2023 Lab Drop off Shivani Limon [facility] Start: 10-12-2023 End: 10-12-2023 ambulatory MD Shivani Limon Facility:[facility] Start: 10-11-2023 End: 10-11-2023 ambulatory MD Shivani Limon Facility:[facility] [place] Start: 09-06-2023 End: 09-06-2023 ambulatory MD Shivani Limon Facility:[facility] [place] Start: 08-31-2023 End: 08-31-2023 ambulatory Jennie Rosenberg Facility:[facility] [place] Start: 07-22-2023 End: 07-22-2023 ambulatory LIZ SHERMAN Not Available Start: 07-20-2023 End: 07-20-2023 ambulatory NANCY DELUCA Not Available Start: 06-30-2023 End: 06-30-2023 ambulatory MD Shivani Limon Facility: [facility] [place] Start: 06-23-2023 End: 06-23-2023 Lab Drop off Shivani Limon [facility] Start: 06-23-2023 End: 06-23-2023 ambulatory MD Shivani Limon Facility:[facility] Start: 01-03-2023 End: 01-03-2023 Patient encounter procedure Robert Sandhu [facility] Start: 01-03-2023 End: 01-03-2023 Well adult monitoring check done Robert Sandhu [facility] Start: 12-01-2022 End: 12-01-2022 Lab Drop off Shivani Limon [facility] Start: 06-07-2022 End: 06-08-[address] CASPER WOMACK . Facility:[facility] Start: 02-11-2022 End: 02-12-[address] CASPER WOMACK . Facility:[facility] Start: 02-03-2022 End: 02-04-[address] CASPER WOMACK . Facility:[facility] Start: 01-30-2022 Encounter for preprocedural laboratory examination DR STEPHANIE MATHEWS . [facility] Start: 01-27-2022 End: 01-27-[address] CASPER WOMACK . Facility:[facility] Start: 01-23-2022 End: 01-24-[address] STEPHANIE MATHEWS . Facility:[facility] Start: 01-23-2022 End: 01-24-2022 Encounter for preprocedural laboratory examination DR STEPHANIE MATHEWS . Facility:[facility] Start: 12-23-2021 End: 12-23-2021 Patient encounter procedure Stephanie MATHEWS [facility] Start: 12-16-2021 End: 12-17-[address] CASPER WOMACK . Facility:[facility] Start: 12-01-2021 End: 12-02-[address] CASPER WOMACK . Facility:[facility] Procedures Date Procedure Procedure Detail Performing Clinician Start: 12-20-2023 Mri pelvis w/o contr ast material [facility] Provider Start: 11-04-2023 GLUCOSE POCT GLUCOMETERS Hugo Power DO Work Phone: Start: 11-04-2023 Excision of lesion of cheek MD Shivani Limon Work Phone: Start: 11-04-2023 GLUCOSE POCT GLUCOMETERS Hugo Castellanos Nidiadeniceisa Work Phone: Start: 11-01-2023 Basic metabolic pane l calcium total Hugo Power DO Work Phone: Start: 11-01-2023 Complete blood count with white cell differential, automated Hugo Gaonaisa Work Phone: Start: 06-07-[address] CASPER HAGEN . Comment on above: Performed By: #### P SAD, FT4 #### [facility] [address] [address] [address] Emiliano Sheehan Start: 01-27-2022 Colonoscopy Shivani Lawson s Start: 12-01-[address] CASPER HAGEN . Comment on above: Performed By: #### P SAD, FT4 #### [facility] [address] [address] [address] Emiliano Sheehan Cystoscopy Stephanie MATHEWS Extraction of cataract Darion BADILLOSammy Lithotripsy Stephanie BADILLOSammy Tonsillectomy Stephanie BADILLOSammy Plan of Treatment Date Care Activity Detail Author Start: 02-18-2028 RSV Vaccine (1 - 1-d ose 75+ series) RSV Vaccine (1 - 1-dose 75+ series) [facility] Start: 10-31-2026 Diabetes Screening Diabetes Screenin g [facility] Start: 02-20-2024 End: 02-20-2024 Patient encounter procedure 02/20/2024 2:15 PM EST Office Visit [facility] [address] [place] [id number] Hugo Power DO [address] [place] [address] [facility] Start: 12-22-2023 End: 12-22-2023 Patient encounter procedure 12/22/2023 3:10 PM EDT Appointment MRI Q [address] [address] Order in scanned docs dated 10/31/23 for [...] Start: 12-21-2023 End: 12-21-2023 Patient encounter procedure [facility] Comment on above: Arrived Start: 12-20-2023 End: 12-20-2023 Patient encounter procedure 12/20/2023 11:10 AM EDT Appointment Radiology [address] [id number] MRI PELVIS (Soft Tissue) WO Contrast / with Anesthesia Radiology Comment on above: MRI PELVIS (Soft Tis merry) WO Contrast / with Anesthesia Start: 12-20-2023 End: 12-20-2023 Admission to same day surgery center 12/20/2023 10:30 AM EDT - 12/20/2023 11:27 AM EDT Surgery [facility] [address] [place] [address] [place], [address] [address] MRI ANESTHESIA [facility] Comment on above: MRI ANESTHESIA Start: 12-20-2023 End: 12-20-2023 Anesthesia consultation 12/20/2023 10:30 AM EDT Anesthesia Event [facility] [address] [place] [address] Marlene Morel MD [address] [place] [address] [facility] Start: 12-20-2023 End: 12-20-2023 Anes non-invasive imaging/radiation therapy [facility] Start: 12-20-2023 End: 12-20-2023 Patient encounter procedure 12/20/2023 9:30 AM EDT Appointment Radiology [address] [place] [address] MRI PELVIS (Soft Tissue) WO Contrast / with Anesthesia Radiology Comment on above: MRI PELVIS (Soft Tis merry) WO Contrast / with Anesthesia Start: 12-20-2023 Subsequent hospital visit by physician Radiology Comment on above: Other back pain, uns pecified chronicity [M54.89] Start: 11-16-2023 End: 11-16-2023 Patient encounter procedure [facility] Comment on above: Arrived Start: 11-04-2023 End: 11-04-2023 Patient encounter procedure [facility] Comment on above: Skin cancer of nose (Primary Dx) Start: 11-04-2023 End: 11-04-2023 [facility] Start: 10-31-2023 End: 10-31-2023 Patient encounter procedure 10/31/2023 3:00 PM EDT Office Visit [facility] [address] [place] [id number] Hugo Power, DO [address] [place] [address] Arrived [facility] Comment on above: Arrived Start: 10-23-2023 Covid-19 Vaccine ( season) Covid-19 Vaccine ( season) [facility] Start: 10-23-2023 Influenza vaccination Influenza Vacc ine (#1) [facility] Start: 02-21-2023 Advance Directive Discussion Advance Directive Discussion [facility] Start: 12-20-2020 Pneumococcal Vaccine : 65+ Years (2 of 2 - PPSV23 or PCV20) Pneumococcal Vaccine: 65+ Years (2 of 2 - PPSV23 or PCV20) [facility] Start: 02-15-2020 Pneumococcal Vaccine : 65+ (2 of 2 - PPSV23 or PCV20) Pneumococcal Vaccine: 65+ (2 of 2 - PPSV23 or PCV20) [facility] Start: 2018 Pneumococcal Vaccine : 65+ (1 of 1 - PCV) Pneumococcal Vaccine: 65+ (1 of 1 - PCV) [facility] Start: 10-11-2017 Hemoglobin A1c measurement HbA1C [facility] Start: 2003 Shingrix Vaccine (1 of 2) Shingrix Vaccine (1 of 2) [facility] Start: 1998 Screening for malign ant neoplasm of colon [facility] Start: 02-18-1988 Lipid panel Lipid Screening [facility] Start: 02-18-1972 Urine microalbumin profile DTaP,Tdap,Td Vaccine (1 - Tdap) [facility] Start: 1971 Annual PCP Team Returns Clerk trisha Disease Visit Annual PCP Team Chronic Disease Visit [facility] Start: 1971 Anxiety Screening Anxiety Screening [facility] Start: 1971 BP Controlled (<130/80) BP Controlle d (<130/80) [facility] Start: 1971 Depression Screening Depression Scre ening [facility] Start: 1971 Hepatitis B surface antibody level LDL Cholesterol [facility] Start: 1971 Hepatitis C screening Hepatitis C Sc cooper [facility] Start: 1963 Diabetic foot examination Diabetic Foot Exam [facility] Start: 1963 Glaucoma screening Dilated Retinal E xam [facility] Start: 1963 Hepatitis B screening Urine Albumin:Creatinine Ratio [facility] Start: 1953 Screening for malign ant neoplasm of colon [facility] Patient Education Know your Meds [facility] Work Phone: Patient referral [facility] Work Phone: Immunizations Immunization Date Immunization Notes Care Provider Fa [facility] 11-30-2022 influenza, high dose seasonal, preservative-free Shivani Limon [facility] 11-30-2022 influenza virus vaccine, unspecified formulation Hugo Power DO Work Phone: [facility] 02-01-2022 SARS-CoV-2 (COVID-19 ) [id number] Shivani Limon [facility] 01-07-2022 influenza virus vaccine, unspecified formulation Shivani Limon [facility] 01-07-2022 Influenza, Seasonal, Quadrivalent, Adjuvanted Hugo Murcek DO Work Phone: [facility] 01-09-2021 influenza virus vaccine, unspecified formulation Shivani Ashly [facility] 01-09-2021 Influenza, Seasonal, Quadrivalent, Adjuvanted Hugo Murcek DO Work Phone: [facility] 12-16-2020 SARS-CoV-2 (COVID-19 ) mRNA BNT-162b2 vax Shivani Limon [facility] Comment on above: Result Comment: 2022: [id number] 04-25-2020 SARS-CoV-2 (COVID-19 ) mRNA BNT-162b2 vax Shivani Limon [facility] Comment on above: Result Comment: 2022: [id number] 04-04-2020 SARS-CoV-2 (COVID-19 ) mRNA BNT-162b2 vax Shivani Limon [facility] Comment on above: Result Comment: 2022: [id number] 12-21-2019 influenza virus vaccine, unspecified formulation Shivani Limon [facility] 12-21-2019 Influenza, Seasonal, Quadrivalent, Adjuvanted Hugo Murcek DO Work Phone: [facility] 12-21-2019 pneumococcal conjugate vaccine, 13 valent Shivani Limon [facility] NEGATED: Highlighted row has not occurred!01-09-2024 influenza virus vaccine, unspecified formulation Shivani Limon [facility] Payers Date Payer Category Payer Self-pay 2021 Private Health Insurance [employer] Member Subscriber Plan / Payer (Effective 2021-Present) Name: Jocelyn Hussein Relation to Subscriber: Self Name: Jocelyn Hussein Payer ID: Not on file Type: Not on file Address: [address] [id number] 2018 Medicare [id number]. [id number] 2018 Unknown [id number]. 1.13.159.2. [id number] 1959 Medicare [id number] 1959 Unknown [id number] 1953 Unknown [id number] 2.16.840.1.985034.3.579.2. 593 1953 Unknown [id number] 2.16.840.1.703479.3.579.2. 593 1953 Unknown [id number] 2.16.840.1.600887.3.579.2. 593 1953 Unknown [id number] 2.16.840.1.990271.3.579.2. 593 1953 Unknown [id number] 2.16.840.1.692443.3.579.2. 593 1953 Unknown [id number] 2.16.840.1.629661.3.579.2. 593 1953 Unknown [id number] 2.16.840.1.970272.3.579.2. 593 1953 Unknown [id number] 2.16.840.1.596440.3.579.2. 1259 1953 Unknown [id number] 2.16.840.1.175870.3.579.2. 1259 1953 Unknown [id number] 2.16.840.1.959175.3.579.2. 1259 1953 Unknown [id number] 2.16.840.1.744436.3.579.2. 1259 1953 Unknown [id number] 2.16.840.1.658722.3.579.2. 1259 1953 Unknown [id number] 2.16.840.1.098445.3.579.2. 1259 1953 Unknown [id number] 2.16.840.1.494621.3.579.2. 1259 1953 Unknown [id number] 2.16.840.1.343348.3.579.2. 72 1953 Unknown [id number] 2.16.840.1.582997.3.579.2. 72 1953 Unknown [id number] 2.16.840.1.051414.3.579.2. 72 1953 Unknown [id number] 2.16.840.1.964478.3.579.2. 72 1953 Unknown [id number] 2.16.840.1.999738.3.579.2. 72 1953 Unknown [id number] 2.16.840.1.984069.3.579.2. 72 1953 Unknown [id number] 2.16.840.1.228061.3.579.2. 72 1953 Unknown [id number] 2.16.840.1.260081.3.579.2. 72 1953 Unknown [id number] 2.16.840.1.642427.3.579.2. 72 1953 Unknown [id number] 2.16.840.1.390568.3.579.2. 727 1953 Unknown [id number] 2.16.840.1.846999.3.579.2. 727 1953 Unknown [id number] 2.16.840.1.097764.3.579.2. 727 1953 Unknown [id number] 2.16.840.1.885905.3.579.2. 727 1953 Unknown [id number] 2.16.840.1.177054.3.579.2. 727 1953 Unknown [id number] 2.16.840.1.205159.3.579.2. 727 1953 Unknown [id number] 2.16.840.1.347188.3.579.2. 727 1953 Unknown [id number] 2.16.840.1.582497.3.579.2. 727 1953 Unknown [id number] 2.16.840.1.945981.3.579.2. 727 1953 Unknown [id number] 2.16.840.1.611617.3.579.2. 727 1953 Unknown [id number] 2.16.840.1.777027.3.579.2. 196 1953 Unknown [id number] 2.16.840.1.300283.3.579.2. 196 1953 Unknown [id number] 2.16.840.1.515372.3.579.2. 196 Unknown [id number] 2.16.840.1.428537.3.579.2. 531 Unknown [id number]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 are in a moving vehicle. Wearing a helmet when you: ?Ride a bicycle. ?Ski. ?Do any other sport or activity that has a risk of injury. Making your home safer by: ?Getting rid of clutter from the floors and stairs. This includes things that can make you trip. ?Using grab bars in bathrooms and handrails by stairs. ?Placing non-slip mats on floors and in bathtubs. ?Putting more light in dim areas. Where to find more information Brain Injury Association: biausa.org Contact a doctor if: These symptoms do not go away: ?Headaches. ?Dizziness. ?Double vision or vision changes. ?Trouble sleeping. ?Changes in mood. You have new symptoms. Get help right away if: You have sudden: ?Headache that is very bad. ?Vomiting that does not stop. ?Changes in the size of one of your pupils. Pupils are the black centers of your eyes. ?Changes in how you see (vision). ?More confusion or more grumpy moods. You have a seizure. Your symptoms get worse. You have a clear or bloody fluid coming from your nose or ears. These symptoms may be an emergency. Get help right away. Call 911. Do not wait to see if the symptoms will go away. Do not drive yourself to the hospital. This information is not intended to replace advice given to you by your health care provider. Make sure you discuss any questions you have with your health care provider. Document Revised: 11/25/2022 Document Reviewed: 11/25/2022 [employer] Patient Education 2023 [employer]. Follow Up Care 12/26/2023 20:13:40 With:Shivani Limon Address:Unknown When: Unknown With:Trauma Clinic Address: [address] [place] [address] [address] [place] [address] [phone] When:01/11/2024 Comments:Call for followup appointment [facility] 12-27-2023 Note Interdisciplinary No te - PT PT Evaluation done this date. Pt. with on AM-PAC this date. He is safe and steady with use of cane and is at his baseline with all functional activities. No further PT needs. [facility] 12-22-2023 Note Patient Education BMI for Adults [...] for Disease Control and Prevention: cdc.gov ??? [place] Heart Association: heart.org ??? National Heart, Lung, and Blood [place]: nhlbi.nih.gov This information is not intended to replace advice given to you by your health care provider. Make sure you discuss any questions you have with your health care provider. Document Revised: 10/28/2022 Document Reviewed: 10/21/2022 [employer] Patient Education ? 2023 [employer] Nutrition BMI for Adults Body mass index [...] 4. Divide the (more content not included)... [facility] 12-21-2023 History of Present illness Narrative HPI Patient presents today about [...] in 2 months documented in this encounter [facility] 12-20-2023 History of Present illness Narrative Radiology Service Progress Note PATIENT [...] PATIENT PRESENTS WITH AN IMPLANTABLE OR ATTACHED BRAZER RESISTANCE: No RADIOLOGY DEPARTMENT: MR; Exam(s) Completed: Body: Pelvis PERIPHERAL IV DATA: Not applicable SIGNED BY: RT Frida(R) December 20, 2023 10:39 AM documented in this encounter [facility] 12-20-2023 Note HNO ID: [id number] Author: DARVIN YOU RT(R) Service: ? Author Type: Technologist Type: Progress [...] PATIENT PRESENTS WITH AN IMPLANTABLE OR ATTACHED BRAZER RESISTANCE: No RADIOLOGY DEPARTMENT: MR; Exam(s) Completed: Body: Pelvis PERIPHERAL IV DATA: Not applicable SIGNED BY: RT Frida(R) December 20, 2023 10:39 AM [facility] 12-14-2023 Instructions Jean Pierre Hollis PA-C - 12/14/2023 11:18 AM EDT Images from the original note were not included. [facility] PATIENT PREOPERATIVE INSTRUCTIONS Shivani Limon MD has scheduled you for your procedure at this surgery center: [facility]: [phone] -- [address] [place] [address]. Please read below carefully for your personalized [...] Procedures: - YOU MUST HAVE A RESPONSIBLE BOWLING BALL FINISHER TAKE YOU HOME. A DIRECTOR OF TEACHER EDUCATION OR CROP OR LIVESTOCK TENANT FARMER CANNOT BE MADE A RESPONSIBLE BOWLING BALL FINISHER. - We recommend that a responsible person [...] Advance Directive, please fax a copy to [phone] or email to for it to be [...] Pierre Hollis PA-C documented in this encounter [facility] 12-14-2023 History and physical note Images from [...] Dewitt present: no Lip Bite Test: I Microretrognathia/Micronagthia/Rec essed Chin: No DENTAL Dental findings: teeth intact. [...] visit. Either the patient or their legal inbound sales representative has been informed of the risks [...] or any previous visit (from the past 11901 hour(s)). Instructions Given to Patient: Instructions located in the after visit summary. Patient given verbal and written preop instructions and voices comprehension and compliance. SIGNATURE: Jean Pierre Hollis PA-C PATIENT NAME: Jocelyn Hussein DATE: December 14, 2023 TIME: 3:38 PM PAGER/CONTACT #: [facility] 12-14-2023 History and physical note Images from [...] Dewitt present: no Lip Bite Test: I Microretrognathia/Micronagthia/Rec essed Chin: No DENTAL Dental findings: teeth intact. [...] visit. Either the patient or their legal inbound sales representative has been informed of the risks [...] or any previous visit (from the past 05416 hour(s)). Instructions Given to Patient: Instructions located in the after visit summary. Patient given verbal and written preop instructions and voices comprehension and compliance. SIGNATURE: Jean Pierre Hollis PA-C PATIENT NAME: Jocelyn Hussein DATE: December 14, 2023 TIME: 3:38 PM PAGER/CONTACT #: documented in this encounter [facility] 12-07-2023 Telephone encounter Note Radiology Service Pre [...] Escalera RN December 07, 2023 4:01 PM [facility] 12-07-2023 Miscellaneous Notes Radiology Service Pre Anesthesia [...] 2023 4:01 PM documented in this encounter [facility] 12-07-2023 Telephone encounter Note Radiology Service Pre [...] Escalera RN December 07, 2023 3:50 PM [facility] 12-07-2023 Miscellaneous Notes Radiology Service Pre Anesthesia [...] Escalera RN December 07, 2023 3:50 PM documented in this encounter [facility] 12-07-2023 Telephone encounter Note Radiology Service Pre Anesthesia Telephone Call PATIENT NAME: Jocelyn Hussein DATE OF CALL: December 07, 2023 TIME: 12:13 PM PATIENT TYPE: This nurse called the pt to offer education about anxiolysis but there was no answer so a detailed message was left along with a call back number. 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 Final pathology showed no residual tumor within the specimen. I made him aware that. Relevant postoperative physical examination Flap 100 percent viable and healing very nicely. Sutures removed. Assessment/plan Jocelyn was seen today for melanoma of nose. Diagnoses and all orders for this visit: Skin cancer of nose (Primary) Comments: Patient given wound instructions, I will see him back in a month documented in this encounter [facility] 11-04-2023 History of Present illness Narrative mmm documented in this encounter [facility] 10-31-2023 History of Present illness Narrative Allergies as of 10/31/2023 - Reviewed 10/31/2023 Allergen Reaction Noted Lisinopril Unknown 07/20/2023 Past Medical History: Diagnosis Date Arthralgia of hip 10/29/2023 ASCVD (arteriosclerotic cardiovascular disease) ([facility] [place] [place]) Asthma ([facility] [place] [place]) 10/29/2023 Back pain with right-sided sciatica 10/29/2023 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 10/29/2023 Cervical radiculopathy Class 3 obesity ([facility] [place] [place]) 10/29/2023 Diabetic nephropathy ([facility] [place] [place]) 10/29/2023 DM (diabetes mellitus) ([facility] [place] [place]) Gout 10/29/2023 Hearing aid worn 02/21/2009 Hearing loss Hearing loss 10/29/2023 Heart disease High blood pressure ([facility] [place] [place]) 02/21/2009 History of claustrophobia 02/21/1989 History of nephrolithiasis 10/29/2023 HTN (hypertension) ([facility] [place] [place]) HTN (hypertension) ([facility] [place] [place]) 10/29/2023 Hyperlipidemia ([facility] [place] [place]) 10/29/2023 Hypertriglyceridemia ([facility] [place] [place]) 10/29/2023 Hypothyroidism ([facility] [place] [place]) 10/29/2023 Internal derangement of left knee 10/29/2023 Left knee pain 10/29/2023 Nephrolithiasis Osteoarthritis of left knee 10/29/2023 Osteoarthritis, 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 Prostate disorder 10/29/2023 Pure hypercholesterolemia ([facility] [place] [place]) 10/29/2023 Right groin pain 10/29/2023 Sciatica 10/29/2023 Screening PSA (prostate specific antigen) 10/29/2023 Sensorineural hearing loss (SNHL) of both ears Sensorineural hearing loss, bilateral 10/29/2023 Skin cancer screening 10/29/2023 Sleep apnea Sleep apnea 07/21/2008 Stage 3a chronic kidney disease (CKD) ([facility] [place] [place]) 10/29/2023 linked HTN with CKD per OP CDI policy. Type 2 diabetes mellitus with hyperlipidemia ([facility] [place] [place]) 10/03/2015 Current Outpatient Medications: allopurinol (Zyloprim) 300 MG tablet, Take 300 mg by mouth Daily, Disp: , Rfl: atorvastatin (Lipitor) 10 MG tablet, See Instructions, TAKE 1 TABLET BY MOUTH EVERY DAY, # 30 tab(s), Refills(s) 0, Pharmacy: [id number], 170.2, cm, 01/03/23 9:22:00 EST, Height/Length Dosing, 112.5, kg, 06/23/23 8:09:00 EDT, Weight Dosing, Disp: , Rfl: levothyroxine (Synthroid, Levoxyl) 75 MCG tablet, Take 75 mcg by mouth Daily, Disp: , Rfl: losartan-hydroCHLOROthiazide (Hyzaar) 100-12.5 MG tablet, Take 1 tablet by mouth Daily, Disp: , Rfl: meloxicam (Mobic) 15 MG tablet, Take 15 mg by mouth Daily, Disp: , Rfl: metFORMIN XR (Glucophage-XR) 500 MG 24 hr tablet, Take 1,000 mg by mouth in the morning and 1,000 mg before bedtime., Disp: , Rfl: metoprolol succinate XL (Toprol-XL) 100 MG 24 hr tablet, Take 100 mg by mouth Daily, Disp: , Rfl: naproxen sodium (Aleve) 220 MG tablet, every 12 (twelve) hours, Disp: , Rfl: oxyCODONE (Roxicodone) 5 MG immediate release tablet, Take 5 mg by mouth every 6 (six) hours if needed, Disp: , Rfl: Past Surgical History: Procedure Laterality Date CATARACT EXTRACTION CYSTOSCOPY 06/2002 KIDNEY STONE SURGERY 05/03/2002 SHOULDER ARTHROSCOPY Right 1994 DR LOMAX TONSILLECTOMY Social History Socioeconomic History Marital status: Spouse name: Not on file Number of children: Not on file Years of education: Not on file Highest education level: Not on file Occupational History Not on file Tobacco Use Smoking status: Never Smokeless tobacco: Never Substance and Sexual Activity Alcohol use: Not on file Drug use: Not on file Sexual activity: Not on file Other Topics Concern Not on file Social History Narrative Not on file Social Determinants of Health Financial Resource Strain: Not on file Food Insecurity: Not on file Transportation Needs: Not on file Physical Activity: Not on file Stress: Not on file Social Connections: Not on file Intimate Partner Violence: Not on file Housing Stability: Not on file Subjective Patient ID: HPI Patient is a 68-year-old male referred from Dermatology for a 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 This was biopsied a couple of months ago. Pathology is consistent with lentigo malignant, melanoma in Situ. Patient had a longstanding pigmented lesion. Denies any ulceration to the lesion previously biopsied etcetera. Review of Systems ROS The specialty specific review of systems is noncontributory except for that recorded in the intake questionnaire and /or described in the history of present illness. Objective ENT Physical Exam Physical Exam Constitutional: Appearance: Normal appearance. HENT: Head: Atraumatic. Ears: External ear shows no abnormality Bilateral ear canals are clear Tympanic membranes intact, no evidence of middle ear fluid or other pathology. Nose: Evidence of biopsy, scar right soft triangle of the nose, there still little bit of pigment here. Overall I would say about a cm in size. Nares patent. Septal deviation to the right No evidence of polyp, mass or pus bilaterally. Oral Cavity: No evidence of trismus Lips appear normal Dental decent Tongue of normal size and configuration, floor of mouth mucosa clear. Buccal mucosa shows no evidence of ulceration, mass or other abnormality Hard palate soft palate mucosa intact with no evidence of mass, ulceration or other abnormality Uvula of normal size and configuration Oropharynx: Tonsils missing Posterior pharyngeal wall normal Neck: No evidence of palpable abnormality Thyroid without evidence of thyromegaly or mass. No cervical lymphadenopathy present. Cardiovascular: Rate and Rhythm: Normal rate and regular rhythm. . Skin: General: Skin is warm and dry. Neurological: General: No focal deficit present. Mental Status: alert and oriented to person, place, and time. Assessment/Plan Jocelyn was seen today for suspicious skin lesion. Diagnoses and all orders for this visit: Melanoma in situ of nose (CMS/HCC) (Primary) Comments: I recommended wide excision with flap repair. If this is a through and through I can probably do some type of internal flap to close that. The r/b of excision of skin cancer with recontruction(primary closure, skin graft or flap) were discussed with the patient. These include but are not limited to disfigurment, scarring, poor cosemetic results, difficuty with function of the organ/site involved with the resection a/o flap, bleeding, infection, of the flap, numbness, neuro/vascular injury, need for additional surgery a/o treatment, etc. The pateint has consented to proceed. documented in this encounter [facility] 10-11-2023 Note Patient Education Cardiovascular Hypertension, Adult [...] wine (148 mL), (more content not included)... [facility] 09-06-2023 Note Patient Education BMI for Adults [...] numbers. This can be done either in [place]an ([place] or metric measurements. Note that charts and online BMI calculators are available to help you find your BMI quickly and easily without having to do these calculations yourself. To calculate your BMI in [place] ([place] measurements: 1. Measure your weight in [...] for Disease Control and Prevention: www.cdc.gov ? [place] Heart Association: www.heart.org ? National Heart, Lung, and Blood [place]: www.nhlbi.nih.gov Summary ? Body mass index (BMI) is a number that is calculated from a person's weight and height. ? BMI may help estimate how much of a person's weight is composed of fat. BMI can help identify those who may be at higher risk for certain medical problems. ? BMI can be measured using Burkinan measurements or metric measurements. ? BMI charts are used to identify whether you are underweight, normal weight, overweight, or obese. This information is not intended to replace advice given to you by your health care provider. Make sure you discuss any questions you have with your health care provider. Document Revised: 10/31/2019 Document Reviewed: 09/07/2019 [employer] Patient Education ? 2022 [employer] Nutrition BMI for Adults What is [...] Identifying a weight (more content not included)... [facility] 01-27-2022 Note OPERATIVE NOTE OPERATION DATE: 01/27/2022 [...] good condition. CC: Casper Womack M.D. [facility] Evaluation + Plan note No data available for this section General Surgery [place] Evaluation + Plan note Future Appointments Appointment Date:12/24/2022 08:00:00 AM Scheduled Provider: Location:[facility] Appointment Type: Medicare Wellness Subsequent Appointment Date:12/30/2022 03:20:00 PM Scheduled Provider:Shivani Limon MD Location:[facility] Appointment Type: Open [facility] Evaluation + Plan note Future Appointments Appointment Date:06/23/2023 08:00:00 AM Scheduled Provider:Shiv[facility] Lim[facility] MD [facility] Type: Open Appointment Date:01/09/2024 08:00:00 AM Scheduled Provider: Location:[facility] Appointment Type: Medicare Wellness Subsequent Future Scheduled TestsNM Myocardial Spect Rest/Stress 1 Day 12/30/22 [facility] [place] Evaluation + Plan note Future Appointments Appointment Date:01/09/2024 08:00:00 AM Scheduled Provider: Location:[facility] Appointment Type: Medicare Wellness Subsequent Appointment Date:01/09/2024 08:45:00 AM Scheduled Provider:Shivani Limon MD Location:[facility] Appointment Type: Open Future Scheduled TestsNM Myocardial Spect Rest/Stress 1 Day 12/30/22 [facility] Evaluation + Plan note Future Appointments Appointment Date:10/13/2023 10:40:00 AM Scheduled Provider: Location:[facility] Appointment Type:FM Lab Draw Appointment Date:01/09/2024 08:00:00 AM Scheduled Provider: Location:[facility] Appointment Type: Medicare Wellness Subsequent Appointment Date:01/09/2024 08:45:00 AM Scheduled Provider:Shivani Limon MD Location:[facility] Appointment Type: Open Diagnostic Tests PendingUrine Culture 10/12/23 Future Scheduled TestsUA with Cult Rflx 10/12/2312NerF8m 10/11/23NM Myocardial Spect Rest/Stress 1 Day 12/30/22 [facility] Evaluation + Plan note Future Appointments Appointment Date:01/09/2024 08:00:00 AM Scheduled Provider: Location:[facility] Appointment Type: Medicare Wellness Subsequent Appointment Date:01/09/2024 08:45:00 AM Scheduled Provider:Shivani Limon MD Location:[facility] Appointment Type: Open Appointment Date:01/09/2024 10:00:00 AM Scheduled Provider:Fidelina CONKLIN MD Location:[facility] Appointment Type:URO New Patient Future Scheduled TestsUA with Cult Rflx 10/11/37XjbT6d 10/11/23NM Myocardial Spect Rest/Stress 1 Day 12/30/22CT Head or Brain w/o Contrast 01/10/24 [facility] Evaluation + Plan note Future Appointments Appointment Date:01/08/2025 08:00:00 AM Scheduled Provider: Location:[facility] Appointment Type:FM Medicare Wellness Subsequent Diagnostic Tests PendingHCV Antibody RFX to Quant PCR 01/09/24 Future Scheduled TestsUA with Cult Rflx 10/11/87JkaH5w 01/08/58CvuN8m 10/11/23CT Head or Brain w/o Contrast 01/10/24 [facility] Evaluation + Plan note Future Appointments Appointment Date:01/08/2025 08:00:00 AM Scheduled Provider: Location:[facility] Appointment Type:FM Medicare Wellness Subsequent Future Scheduled TestsUA with Cult Rflx 21/[id number] 01/08/55ErcY5y 10/11/23 [facility] Evaluation note No assessment inform ation [facility] Work Phone: Evaluation note Diagnosis Pre-op evaluation- Primary Preoperative examination, unspecified Primary hypertension Unspecified essential hypertension Type 2 diabetes mellitus without complication, without long-term current use of insulin ([facility]) AVELINA (obstructive sleep apnea) Obstructive sleep apnea [...] BP at home [facility] Skin cancer of nose- Primary Other malignant neoplasm of skin of other and unspecified parts of face documented in this encounter [facility]Evaluation [facility]* Diagnosis Skin cancer of nose- Primary Other malignant neoplasm of skin of other and unspecified parts of face documented in this encounter [facility]* Diagnosis Melanoma in situ of nose (CMS/HCC)- Primary documented in this encounter [facility] HealthcareEvaluation note* Diagnosis Skin cancer of nose- Primary Other malignant neoplasm of skin of other and unspecified parts of face documented in this encounter [facility] HealthcareHospital Discharge instructions No data available for this section General Surgery [place] Discharge instructions Additional Instructions 1. Sleep on 2 pillows 2. Small amount of Vaseline to sutures twice daily 3. Okay to shower late tomorrow morning, keep wound dry and clean 3. Take antibiotic as prescribed 4. Tylenol or Motrin for discomfort 6. See Dr. Power in 1 [facility] Work Phone: Progress note No data available for this section General Surgery [place] Summary Purpose Family History No Family History [...] November 04, 2023 End: November 04, 2023 Tele Marketing Executive Relationship Specialty Start Date End Date Casper Womack MD [address] [place] [address] PCP - General 06/01/00 Tele Marketing Executive Relationship Specialty Start Date End Date Casper Womack MD [facility] [place] [address] PCP - General 06/01/00 Shivani Limon MD [address] [place] [address] Referring Family Medicine 12/13/23 Tele Marketing Executive Relationship Specialty Start Date End Date Shivani Limon MD [address] [place] [facility] [address] PCP - General Family Medicine 12/15/23 Shivani Limon MD [address] [place] [address] Referring Family Medicine 12/13/23 Tele Marketing Executive Relationship Specialty Start Date End Date Shivani Limon MD [address] [place] [address] PCP - General Family Medicine 12/15/23 Shivani Limon MD [address] [place] [address] Referring Family Medicine 12/13/23 Tele Marketing Executive Relationship Specialty Start Date End Date Shivani Limon MD [address] [place] [address] PCP - General Family Medicine 12/15/23 Shivani Limon MD [address] [place] [address] Referring Family Medicine 12/13/23 Tele Marketing Executive Relationship Specialty Start Date End Date Shivani Limon MD [address] [facility] [place] [address] PCP - General Family Medicine 12/15/23 Shivani Limon MD [address] [place] [address] Referring Family Medicine 12/13/23 Tele Marketing Executive Relationship Specialty Start Date End Date Shivani Limon MD [address] [place] [address] PCP - General Family Medicine 12/15/23 Shivani Limon MD [facility] [place] [address] Referring Family Medicine 12/13/23 Tele Marketing Executive Relationship Specialty Start Date End Date Shivani Limon MD [address] [place] [address] PCP - General Family Medicine 10/31/23 Nancy Deluca PA [address] [place] [id number] Physician [employer] Marketing Vp Dermatology 11/16/23 Hugo Power DO [address] [place] [address] Otolaryngology 11/16/23 Tele Marketing Executive Relationship Specialty Start Date End Date Shivani Limon MD [address] [place] [address] PCP - General Family Medicine 10/31/23 Nancy Deluca PA [address] [place] [address] Physician [employer] Marketing Vp Dermatology 11/16/23 Hugo Power DO [address] [place] [address] Otolaryngology 11/16/23 Tele Marketing Executive Relationship Specialty Start Date End Date Shivani Limon MD [address] [place] [address] PCP - General Family Medicine 10/31/23 Tele Marketing Executive Relationship Specialty Start Date End Date Shivani Limon MD [address] [place] [address] PCP - General Family Medicine 10/31/23 Tele Marketing Executive Relationship Specialty Start Date End Date Shivani Limon MD [address] [place] [address] PCP - General Family Medicine 10/31/23 Tele Marketing Executive Relationship Specialty Start Date End Date Shivani Limon MD [address] [facility] [place] [address] PCP - General Family Medicine 10/31/23 Tele Marketing Executive Relationship Specialty Start Date End Date Shivani Limon MD [address] [place] [address] PCP - General Family Medicine 10/31/23 Tele Marketing Executive Relationship Specialty Start Date End Date Shivani Limon MD [address] [facility] [place] [address] PCP - General Family Medicine 10/31/23 Nancy Deluca PA [address] [place] [address] [place] [address] Physician [employer] Marketing Vp Dermatology 11/16/23 Hugo Power DO [address] [place] [address] Otolaryngology 11/16/23 Tele Marketing Executive Relationship Specialty Start Date End Date Shivani Limon MD [address] [place] [address] PCP - General Family Medicine 10/31/23 Nancy Deluca PA [address] [place] [address] [employer]ician [employer] Vp Dermatology 11/16/23 Hugo Power DO [address] [place] [address] Otolaryngology 11/16/23 (unrecognized sect ion and content) [...] section and content) DATE CREATED AUTHOR 06/10/2022 [facility] DATE CREATED AUTHOR AUTHOR'S ORGANIZ ATION 10/14/2023 [facility] DATE CREATED AUTHOR AUTHOR'S ORGANIZ ATION 10/16/2023 [facility] DATE CREATED AUTHOR AUTHOR'S ORGANIZ ATION 12/18/2023 [facility] DATE CREATED AUTHOR AUTHOR'S ORGANIZ ATION 12/20/2023 [facility] DATE CREATED AUTHOR AUTHOR'S ORGANIZ ATION 12/21/2023 [facility] DATE CREATED AUTHOR AUTHOR'S ORGANIZ ATION 12/23/2023 [facility] DATE CREATED AUTHOR AUTHOR'S ORGANIZ ATION 12/28/2023 [facility] DATE CREATED AUTHOR AUTHOR'S ORGANIZ ATION 12/31/2023 [facility] DATE CREATED AUTHOR AUTHOR'S ORGANIZ ATION 01/12/2024 [facility] DATE CREATED AUTHOR AUTHOR'S ORGANIZ ATION 01/13/2024 [facility] DATE CREATED AUTHOR AUTHOR'S ORGANIZ ATION 01/15/2024 [facility] DATE CREATED AUTHOR AUTHOR'S ORGANIZ ATION 01/17/2024 [facility] DATE CREATED AUTHOR AUTHOR'S ORGANIZ ATION 01/19/2024 [facility] DATE CREATED AUTHOR AUTHOR'S ORGANIZ ATION 02/13/2024 [facility] Goals (unrecognized section and content) Goals may be documented in a n alternate section Source Comments (unrecognize d section and content) In the event this informatio n is protected by the Federal Confidentiality of Alcohol and Drug Abuse Patient Records regulations: The Federal rules restrict any use of the information to criminally investigate or prosecute any alcohol or drug abuse patient.[facility] the event this information is protected by the Federal Confidentiality of Alcohol and Drug Abuse Patient Records regulations: The Federal rules restrict any use of the information to criminally investigate or prosecute any alcohol or drug abuse patient.[facility] the event this information is protected by the Federal Confidentiality of Alcohol and Drug Abuse Patient Records regulations: The Federal rules restrict any use of the information to criminally investigate or prosecute any alcohol or drug abuse patient.[facility] the event this information is protected by the Federal Confidentiality of Alcohol and Drug Abuse Patient Records regulations: The Federal rules restrict any use of the information to criminally investigate or prosecute any alcohol or drug abuse patient.[facility] the event this information is protected by the Federal Confidentiality of Alcohol and Drug Abuse Patient Records regulations: The Federal rules restrict any use of the information to criminally investigate or prosecute any alcohol or drug abuse patient.[facility] the event this information is protected by the Federal Confidentiality of Alcohol and Drug Abuse Patient Records regulations: The Federal rules restrict any use of the information to criminally investigate or prosecute any alcohol or drug abuse patient.[facility] the event this information is protected by the Federal Confidentiality of Alcohol and Drug Abuse Patient Records regulations: The Federal rules restrict any use of the information to criminally investigate or prosecute any alcohol or drug abuse patient.[facility] the event this information is protected by the Federal Confidentiality of Alcohol and Drug Abuse Patient Records regulations: The Federal rules restrict any use of the information to criminally investigate or prosecute any alcohol or drug abuse patient.[facility] the event this information is protected by the Federal Confidentiality of Alcohol and Drug Abuse Patient Records regulations: The Federal rules restrict any use of the information to criminally investigate or prosecute any alcohol or drug abuse patient.[facility] Reason for Visit (unrecogniz ed section and content) Reason Comments Appointment Anxiolysis Education Reason Comments Returning Patient's Call Reason Comments MRI Appointment Reason Comments Radiology Pre Procedure Instructions Reason Comments Cancer 1 month recheck wide exc melanoma nose Reason Comments Suspicious Skin Lesion New Patient : Misty anoma nose Reason Comments Melanoma of Nose New Patient : wide e xc melanoma nose FOR RECORDS PERTAINING TO PATIENTS [...] BE BASED ON THE PRIMARY CLINICAL RECORDS. [facility] [employer] [facility]. provides no warranty or guarantee of the accuracy or completeness of information in this document.
[2024-02-20 10:58] VITALS: BP 198/96; PULSE 73; TEMP 36.8; O2SAT 99
[2024-02-20 11:05] LABS: Glucometer 117 mg/dL (74-106)
[2024-02-20 11:38] VITALS: BP 164/78; PULSE 73; O2SAT 96
[2024-02-20 11:41] VITALS: BP 182/77; PULSE 68; O2SAT 96
--- NOTE | 2024-02-20 11:42 | P.ON_ITS ---
Date of procedure: 02/20/24 Pre-op diagnosis: Pain due to lumbar stenosis with neurogenic claudication Post-op diagnosis: same as pre-op Procedure: Procedure: Left L4-5, L5-S1 transforaminal epidural steroid injection Medications: Bupivacaine 0.25% 2cc, lidocaine 2% 1cc, depomedrol 80mg The patient was seen and examined in the preoperative holding area.? Informed consent was obtained and placed on the chart.? Patient was brought to the medical procedure unit and placed in the prone position where a timeout was completed verifying the correct patient, procedure site, position, and planned special equipment using sterile aseptic technique.? Under direct fluoroscopic visualization a 25-gauge Quincke tipped spinal needle was advanced to the designated neural foramen where contrast dye was injected to show adequate spread.? The needle was inserted at level left L4-5. There was no evidence of vascular or adverse uptake.? Epidural spread was appreciated.? The above- mentioned injectate was then placed in a 1.5 mL aliquot preceded by negative aspiration.? The needle was removed. The needle was inserted and the procedure repeated at level left L5-S1.? The surgery site was covered.? Patient was taken to the postprocedural recovery area and monitored for an appropriate length of time before found suitable for discharge in the accompaniment of a responsible adult. Anesthesia: Local Surgeon: Delmy Weber Pathology: none sent Condition: stable Disposition: no change
[2024-02-20] MEDS: 0.9 % SODIUM CHLORIDE 10 ML SYRINGE - SALINE FLUSH INJ (11:43)
[2024-02-20] MEDS: IOHEXOL 240 MG/ML - 10 ML VIAL 12 MG INJ (11:44)
[2024-02-20] MEDS: METHYLPREDNISOLONE ACETATE 80 MG/ML VIAL INJ (11:44)
[2024-02-20] MEDS: BUPIVACAINE HCL 0.25% PF 25 MG/10 ML VIAL INJ (11:44)
[2024-02-20] MEDS: LIDOCAINE HCL 2% 400 MG/20 ML MDV 3 ML INJ (11:44)
== END 2024-02-20 11:49 | disposition home or self-care (01) ==
LOC: SURGOUT 10:08
PROVIDERS: PCP Family Medicine; Visit Provider Anesthesiology
DX: M48.062 Spinal stenosis, lumbar region with neurogenic claudication (principal); E11.9 Type 2 diabetes mellitus without complications; Z79.84 Long term (current) use of oral hypoglycemic drugs
CPT/HCPCS: 36415; 64483; 64484; 82948; J0665; J1010; Q9966

== ENCOUNTER 2024-03-07 12:48 | Outpatient (OUT) | payer MEDICARE, OTHER, SELFPAY ==
--- NOTE | 2024-03-07 13:02 | P.CN_ITS ---
Consult Note: HPI Data of Consult Patient: known to practice within the last 3 years Requesting Physician: Alicja Escobar NP Primary Care Provider: SHIVANI LIMON Consult Narrative Reason for consult: f/u Narrative: Kojo Saeed a 69 year old male presents for evaluation and management of low back and left leg pain. Pt has a longstanding history of back pain, prior imaging consistent with lumbar spondylosis, lumbar ddd. pt failed >6 weeks of PT/HEP. utilizes mobic and baclofen, failed tylenol. pt has failed bilateral L4-5 L5-S1 MBB and left SIJ injection, recently underwent left L4/5 L5/S1 TFESI with 50% improvement ongoing. TOM 46%, stable from last visit. Pain 2/10 dull increasing to 6/10 with walking and ADLs. cc:: CC: Alicja Escobar NP Review of Systems ROS Status of ROS 10 or more systems reviewed and unremark able except as noted in history and below Musculoskeletal Reports: back pain and joint pain PFSH PFSH Medical History (Updated 01/18/24 @ 14:46 by Alicja Escobar NP) Hearing deficit ?H91.90 - Unspecified hearing loss, unspecified ear (ICD-10) History of nephrolithotomy with removal of calculi ?Z98.890 - Other specified postprocedural states (ICD-10) ?Z87.442 - Personal history of urinary calculi (ICD-10) Melanoma ?C43.9 - Malignant melanoma of skin, unspecified (ICD-10) Diabetes ?E11.9 - Type 2 diabetes mellitus without complications (ICD-10) Kidney stone ?N20.0 - Calculus of kidney (ICD-10) Sleep apnea ?G47.30 - Sleep apnea, unspecified (ICD-10) HTN (hypertension) ?I10 - Essential (primary) hypertension (ICD-10) Surgical History H/O melanoma excision ?Z98.890 - Other specified postprocedural states (ICD-10) ?Z85.820 - Personal history of malignant melanoma of skin (ICD-10) History of cataract extraction ?Z98.49 - Cataract extraction status, unspecified eye (ICD-10) Social History Smoking status: Never smoker Little interest or pleasure in doing things: not at all Feeling down, depressed, or hopeless: not at all Meds Home Medications and Allergies Home Medications ?Medication ?Instructions ?Recorded ?Confirmed ?Type allopurinol 300 mg tablet 300 mg PO DAILY 01/02/24 02/20/24 History atorvastatin 10 mg tablet 10 mg PO DAILY 01/02/24 02/20/24 History levothyroxine 75 mcg tablet 75 mcg PO DAILY 01/02/24 02/20/24 History losartan 100 1 tab PO DAILY 01/02/24 02/20/24 History mg-hydrochlorothiazide 12.5 mg tablet meloxicam 15 mg tablet 15 mg PO DAILY 01/02/24 02/20/24 History metformin 500 mg tablet,extended 1,000 mg PO BID 01/02/24 02/20/24 History release 24 hr diazepam 10 mg tablet (Valium) 10 mg PO ONCE 01/16/24 02/20/24 History baclofen 10 mg tablet 10 mg PO TID PRN muscle spasm #90 02/09/24 02/20/24 Rx tabs Allergies Allergy/AdvReac Type Severity Reaction Status Date / Time lisinopril Allergy Mild Cough Verified 02/20/24 11:04 Exam Constitutional Documenting provider has reviewed patient's vital signs: yes Common normals: no apparent distress, oriented x3, healthy appearing, alert and well nourished General appearance: cooperative HENSD Common normals: normocephalic, hearing grossly normal bilaterally and moist oral mucous membranes Head and scalp: normocephalic Eye Common normals: PERRL Pupil: PERRL Neck & C-Spine Common normals: full ROM General: normal visual inspection Chest Common normals: inspection of chest normal Respiratory Common normals: normal respiratory effort, no retractions and no use of accesso ry muscles Back & Pelvis Lumbar spine/lower back: lumbar ROM normal and straight leg raise negative bilaterally; no pain with ROM and no lumbar spinal tenderness Extremity Left lower extremity: hip joint Other: no pain with internal or external rotation Neuro Common normals: oriented x3, CN's II-XII intact bilaterally, moves all extremities, no focal motor deficits, no sensory deficits noted and deep tendon reflexes 2+ bilaterally Sensorium/orientation: alert Motor exam: strength 5/5 throughout and no movement abnormalities noted Psych Common normals: mental status grossly normal, thought process normal, cooperative, affect normal, speech normal and activity/motor behavior normal Speech: normal speech Thought process: normal thought process Results Additional Findings Additional findings: If on a controlled substance or opioids, I have checked an [place]AR[place] report on this patient and there are no aberrancies noted in the prescribing history.??If on a controlled substance or opioid a drug screen was completed and reviewed within the last year, and if there has not been a drug screen completed we ordered one today to monitor higher risk, state monitored pain medication use. As part of providing excellent, safe, comprehensive care, the following was completed at our patient's visit: 1. A medication reconciliation and review to ensure accurate knowledge of current/active medications, including asking our patients to inform us about any [id number] medications or herbal remedies/nutritional supplements/alternative remedies. 2. A review to specifically ensure our patients have had annual screening for screening for depression, screening for tobacco use, and screening for unhealthy alcohol use. For concerning screenings had a discussion with the patient, provided patient education, and recommended follow-up with primary care provider when appropriate. If patient noted with a risk of falling, they received education on strength, gait, and balance training to prevent future risk of falling. Portions of this note may have been carried over from the previous visit and updated as appropriate. Please note this office utilizes paper charting in addition to the electronic medical record. A list of current medications, vitals, and PMH is available there as the clinical staff outside of myself do not have access to [employer] during clinic operations. As part of providing quality comprehensive care the current medications, vitals, and PMH were reviewed in the paper chart. Assessment and Plan Assessment and Plan (1) Lumbar stenosis with neurogenic claudication: Assessment and Plan: left L4/5 L5/S1 TFESI 50% improvement ongoing (2) Sacroiliitis: (3) Lumbar spondylosis: Plan f/u with Dr Marmolejo for left knee pain continue current medications continue HEP as tolerated f/u 3 months, sooner if needed
== END 2024-03-07 12:49 | disposition home or self-care (01) ==
LOC: PM 12:49
PROVIDERS: PCP Family Medicine; Visit Provider Nurse Practitioner
DX: M48.062 Spinal stenosis, lumbar region with neurogenic claudication (principal); M46.1 Sacroiliitis, not elsewhere classified; M47.816 Spondylosis without myelopathy or radiculopathy, lumbar region
CPT/HCPCS: G0463

== ENCOUNTER 2024-06-06 10:45 | Outpatient (OUT) | payer MEDICARE, OTHER, SELFPAY ==
--- NOTE | 2024-06-06 11:15 | P.CN_ITS ---
Consult Note: HPI Data of Consult Patient: known to practice within the last 3 years Requesting Physician: Alicja Escobar NP Primary Care Provider: SHIVANI LIMON Consult Narrative Reason for consult: f/u Narrative: Kojo Saeed a 69 year old male presents for evaluation and management of low back and left leg pain. Pt has a longstanding history of back pain, prior imaging consistent with lumbar spondylosis, lumbar ddd. pt failed >6 weeks of PT/HEP. utilizes mobic and baclofen, failed tylenol. pt previously underwent left L4/5 L5/S1 TFESI with 50% improvement ongoing. TOM 36%. pain 1/10 increasing to 2/10 per pt. cc:: CC: Alicja Escobar NP Review of Systems ROS Status of ROS 10 or more systems reviewed and unremark able except as noted in history and below Musculoskeletal Reports: joint pain PFSH PFSH Medical History (Updated 01/18/24 @ 14:46 by Alicja Escobar NP) Hearing deficit ?H91.90 - Unspecified hearing loss, unspecified ear (ICD-10) History of nephrolithotomy with removal of calculi ?Z98.890 - Other specified postprocedural states (ICD-10) ?Z87.442 - Personal history of urinary calculi (ICD-10) Melanoma ?C43.9 - Malignant melanoma of skin, unspecified (ICD-10) Diabetes ?E11.9 - Type 2 diabetes mellitus without complications (ICD-10) Kidney stone ?N20.0 - Calculus of kidney (ICD-10) Sleep apnea ?G47.30 - Sleep apnea, unspecified (ICD-10) HTN (hypertension) ?I10 - Essential (primary) hypertension (ICD-10) Surgical History H/O melanoma excision ?Z98.890 - Other specified postprocedural states (ICD-10) ?Z85.820 - Personal history of malignant melanoma of skin (ICD-10) History of cataract extraction ?Z98.49 - Cataract extraction status, unspecified eye (ICD-10) Social History Smoking status: Never smoker Little interest or pleasure in doing things: not at all Feeling down, depressed, or hopeless: not at all Meds Home Medications and Allergies Home Medications ?Medication ?Instructions ?Recorded ?Confirmed ?Type allopurinol 300 mg tablet 300 mg PO DAILY 01/02/24 02/20/24 History atorvastatin 10 mg tablet 10 mg PO DAILY 01/02/24 02/20/24 History levothyroxine 75 mcg tablet 75 mcg PO DAILY 01/02/24 02/20/24 History losartan 100 1 tab PO DAILY 01/02/24 02/20/24 History mg-hydrochlorothiazide 12.5 mg tablet meloxicam 15 mg tablet 15 mg PO DAILY 01/02/24 02/20/24 History metformin 500 mg tablet,extended 1,000 mg PO BID 01/02/24 02/20/24 History release 24 hr diazepam 10 mg tablet (Valium) 10 mg PO ONCE 01/16/24 02/20/24 History baclofen 10 mg tablet 10 mg PO TID PRN muscle spasm #90 02/09/24 02/20/24 Rx tabs Allergies Allergy/AdvReac Type Severity Reaction Status Date / Time lisinopril Allergy Mild Cough Verified 02/20/24 11:04 Exam Constitutional Documenting provider has reviewed patient's vital signs: yes Common normals: no apparent distress, oriented x3, healthy appearing, alert and well nourished General appearance: cooperative HENMT Common normals: normocephalic, hearing grossly normal bilaterally and moist oral mucous membranes Head and scalp: normocephalic Eye Common normals: PERRL Pupil: PERRL Neck & C-Spine Common normals: full ROM General: normal visual inspection Chest Common normals: inspection of chest normal Respiratory Common normals: normal respiratory effort, no retractions and no use of accessory muscles Back & Pelvis Lumbar spine/lower back: lumbar ROM normal and straight leg raise negative bilaterally; no pain with ROM and no lumbar spinal tenderness Sacroiliac joints: SI joints normal Extremity Left lower extremity: hip joint Other: no pain with internal or external rotation Neuro Common normals: oriented x3, CN's II-XII intact bilaterally, moves all extremities, no focal motor deficits, no sensory deficits noted and deep tendon reflexes 2+ bilaterally Sensorium/orientation: alert Motor exam: strength 5/5 throughout and no movement abnormalities noted Psych Common normals: mental status grossly normal, thought process normal, cooperative, affect normal, speech normal and activity/motor behavior normal Speech: normal speech Thought process: normal thought process Results Additional Findings Additional findings: If on a controlled substance or opioids, I have checked an [place]AR[place] report on this patient and there are no aberrancies noted in the prescribing history.??If on a controlled substance or opioid a drug screen was completed and reviewed within the last year, and if there has not been a drug screen completed we ordered one today to monitor higher risk, state monitored pain medication use. As part of providing excellent, safe, comprehensive care, the following was completed at our patient's visit: 1. A medication reconciliation and review to ensure accurate knowledge of current/active medications, including asking our patients to inform us about any [id number] medications or herbal remedies/nutritional supplements/alternative remedies. 2. A review to specifically ensure our patients have had annual screening for screening for depression, screening for tobacco use, and screening for unhealthy alcohol use. For concerning screenings had a discussion with the patient, provided patient education, and recommended follow-up with primary care provider when appropriate. If patient noted with a risk of falling, they received education on strength, gait, and balance training to prevent future risk of falling. Portions of this note may have been carried over from the previous visit and updated as appropriate. Please note this office utilizes paper charting in addition to the electronic medical record. A list of current medications, vitals, and PMH is available there as the clinical staff outside of myself do not have access to [employer] charting during clinic operations. As part of providing quality comprehensive care the current medications, vitals, and PMH were reviewed in the paper chart. Assessment and Plan Assessment and Plan (1) Lumbar stenosis with neurogenic claudication: Assessment and Plan: left L4/5 L5/S1 TFESI 50% improvement ongoing (2) Sacroiliitis: (3) Lumbar spondylosis: Plan continue f/u with orthopedics for joint pain, continues to work on a1c and weight loss continue current medications f/u 6 months, sooner if needed
== END 2024-06-06 10:46 | disposition home or self-care (01) ==
LOC: PM 10:46
PROVIDERS: PCP Family Medicine; Visit Provider Nurse Practitioner
DX: M48.062 Spinal stenosis, lumbar region with neurogenic claudication (principal); M46.1 Sacroiliitis, not elsewhere classified; M47.816 Spondylosis without myelopathy or radiculopathy, lumbar region
CPT/HCPCS: G0463

== ENCOUNTER 2024-09-04 07:24 | Outpatient (OUT) | payer MEDICARE, OTHER, SELFPAY ==
--- OUTSIDE RECORDS SUMMARY | 2024-09-04 07:28 | XMS_ITS | CCD ---
Author Organization [facility] Care Team Providers Care Devops Consultant Name Role Phone CASPER WOMACK Primary Care Physician EDUARDO ., DR CASPER George Primary Care [...] Unavailable GEMBUS, SAHIL Consulting Unavailable SEAMON, DERREK Christianson Consulting Unavailable WOMACK ., DR CASPER George [...] Consulting Unavailable CASPER WOMACK Primary Care Physician [phone] Shivani Limon. Primary Care Physician MD Shivani Limon. Attending Unavailable MD Shivani Limon. Admitting Unavailable DO Hugo Power Attending Provider MD Shivani Limon Primary Care Provider [phone] Casper Womack MD Primary Care Provider Shivani Limon MD Unavailable CASPER WOMACK Primary Care Unavailable SHIVANI LIMON E Referring Unavailable Shivani Limon MD Primary Care Provider PROVIDER, UNKNOWN Admitting Unavailable PROVIDER, UNKNOWN Attending Unavailable RASHI LIMONUEL E Primary Care Unavailable SHIVANI LIMON E Referring Unavailable RASHI LIMONUEL E Primary Care Unavailable SHIVANI LIMON E Referring Unavailable ASHLY SHIVANI E Primary Care Unavailable SHIVANI LIMON E Referring Unavailable ASHLY SHIVANI E Primary Care Unavailable Shivani Limon MD Primary Care Provider [phone] Nancy Jane Unavailable Hugo Power DO Unavailable NANCY DELUCA Attending Unavailable SHIVANI LIMON E Referring Unavailable LIZ SHERMAN Attending Unavailable LIZ SHERMAN Referring Unavailable MURHUGO FRAZIER Attending Unavailable HUGO POWER Attending Unavailable HUGO POWER Attending Unavailable FELECIA NANCY Referring Unavailable MURHUGO FRAZIER Attending Unavailable FELECIA NANCY Referring Unavailable Shivani Limon Attending Unavailable Jose Solis Attending UnavailJose Dupree Admitting Unavailabl e Fidelina CONKLIN Attending Unavailable Shivani Limon Referring Unavailable Shivani Limon E Primary Care Unavailable Hugo Power Attending Unavailable Hugo Power Admitting Unavailable Hugo Power Attending Unavailable Hugo Power Admitting Unavailable Shivani Limon E Primary Care Unavailable MD Shivani Limon [...] MD Shivani Limon Admitting Unavailable MD Shivani Lmion Attending Unavailable Shivani Limon Admitting Unavailable Shivani Limon Attending Unavailable Jose Solis Attending UnavailJose Dupree Admitting UnavailShivani Hooper Admitting Unavailable Shivani Limon Attending Unavailable Tia HENDRICKS, Delmy Teran Attending Unavailable Tia HENDRICKS, Delmy Teran Attending Unavailable Tia HENDRICKS, Delmy Teran Attending Unavailable Tia HENDRICKS, Delmy Teran Attending Unavailable Henrique Bright Admitting Unavailable Henrique Bright Attending Unavailable Henrique Bright Referring Unavailable MD Shivani Limon Attending Unavailable MD Shivani Limon Attending Unavailable MD Shivani Limon Referring Unavailable Ruben Rust Consulting Unavailable MD Shivani Limon Admitting Unavailable MD Shivani Limon Attending Unavailable Ruben Rust Consulting Unavailable Ruben Rust Consulting Unavailable Allergies Allergy Classification Reported Allergen(s) Allergy Type Date of Onset Reaction(s) Facility (14 sources) Lisinopril; Translations: [lisinopril] Drug Allergy Unknown (qualifier value) General Surgery [place] (1 source) Amino Acids Drug Allergy [facility] (14 sources) Lisinopril Allergy to [...] DAY, # 90 tab(s), Refills(s) 1, Pharmacy: [facility] ST[id number], 170.3, cm, 10/11/23 15:26:00 EDT, Height/Length Dosing, 104.8, kg, 10/11/23 15:26:00 EDT, Weight Dosing Start Date: 12/22/23 Status: Ordered atorvastatin 10 mg oral tablet (20 sources) HMG-CoA Reductase Inhibitor Start: 11-16-2019 take 1 tablet by mouth once daily atorvastatin 10 mg Tab See Instructions, TAKE 1 TABLET BY MOUTH EVERY DAY, # 90 tab(s), Refills(s) 1, Pharmacy: [facility] ST[facility] [id number], 170.3, cm, 10/11/23 15:26:00 EDT, Height/Length Dosing, 104.8, kg, 10/11/23 15:26:00 EDT, Weight Dosing Start Date: 10/25/23 Status: Ordered canagliflozin 100 mg oral tablet (3 sources) Sodium-Glucose Cotransporter 2 Inhibitor Start: 12-30-2022 take 1 tablet by mouth once daily Invokana 100 mg oral tablet 100 mg = 1 tab(s), Oral, Daily, # 30 tab(s), Refills(s) 0, [id number] 170.2, cm, 12/30/22 15:16:00 EST, Height/Length Dosing, 112.6, kg, 12/30/22 15:16:00 EST, Weight Dosing Start Date: 12/30/22 Status: Ordered Start: 06-30-2022 take 1 tablet by ubaldo th once daily Invokana 100 mg oral tablet 100 mg = 1 tab(s), Oral, Daily, # 30 tab(s), Refills(s) 0, [id number], 170.2, cm, 06/01/22 8:48:00 EDT, Height/Length [...] qWeek, # 12 EA, Refills(s) 0, Pharmacy: [facility]/pharmacy #[id number], 170.3, cm, 10/11/23 15:26:00 EDT, Height/Length Dosing, 104.8, kg, 10/11/23 15:26:00 EDT, Weight Dosing Start Date: 10/11/23 Status: Ordered hydroCHLOROthiazide 12.5 mg / losartan potassium 100 mg oral tablet (20 sources) Thiazide Diuretic, Angiotensin 2 Receptor Smooth Start: 12-10-2021 hydrochlorothiaz sonny-losartan 12.5 mg-100 mg oral tablet 1 tab(s), Oral, Daily, 90 tab(s), Refill(s) 1, [facility]/pharmacy #[id number], 170.3, cm, 09/06/23 7:42:00 EDT, Height/Length [...] DAY, # 90 tab(s), Refills(s) 0, Pharmacy: [facility] [id number], 170.3, cm, 10/11/23 15:26:00 EDT, Height/Length Dosing, 104.8, kg, 10/11/23 15:26:00 EDT, Weight Dosing Start Date: 11/23/23 Status: Ordered Start: 11-01-2023 take 1 tablet by mouth once le vothyroxine (SYNTHROID) 75 mcg tablet Take 1 tablet by mouth every afternoon. 11/23/2023 Active Start: 08-26-2023 take 1 tablet by ubaldo once daily levothyroxine 75 mcg (0.075 mg) Tab See Instructions, TAKE 1 TABLET BY MOUTH EVERY DAY, # 90 tab(s), Refills(s) 0, Pharmacy: [facility] [id number], 170.3, cm, 06/30/23 8:40:00 EDT, Height/Length Dosing, 111.6, kg, 06/30/23 8:40:00 EDT, Weight Dosing Start Date: 08/26/23 Status: Ordered Start: 05-06-2023 take 1 tablet by ubaldo once daily levothyroxine 75 mcg (0.075 mg) Tab See Instructions, TAKE 1 TABLET BY MOUTH EVERY DAY, # 90 tab(s), Refills(s) 0, Pharmacy: [facility] [id number], 170.2, cm, 01/03/23 9:22:00 EST, Height/Length Dosing, 112.5, kg, 01/03/23 9:22:00 EST, Weight Dosing Start Date: 05/06/23 Status: Ordered Start: 12-30-2022 take 1 tablet by ubaldo once daily levothyroxine 75 mcg (0.075 mg) Tab See Instructions, TAKE 1 TABLET BY MOUTH EVERY DAY, # 90 tab(s), Refills(s) 0, Pharmacy: [facility]/pharmacy #[id number], 170.2, cm, 12/30/22 15:16:00 EST, Height/Length Dosing, 112.6, kg, 12/30/22 15:16:00 EST, Weight Dosing Start Date: 12/30/22 Status: Ordered Start: 09-20-2022 take 1 tablet by bualdo once daily levothyroxine 75 mcg (0.075 mg) Tab See Instructions, TAKE 1 TABLET BY MOUTH EVERY DAY, # 90 tab(s), Refills(s) 0, Pharmacy: [facility] [id number], 170.2, cm, 06/01/22 8:48:00 EDT, Height/Length Dosing, [...] BID, # 390 tab(s), Refills(s) 0, Pharmacy: [facility]/pharmacy #[id number], 170.3, cm, 06/30/23 8:40:00 EDT, Height/Length Dosing, 111.6, kg, 06/30/23 8:40:00 EDT, Weight Dosing Start Date: 06/30/23 Status: Ordered Start: 12-30-2022 take 1 tablet by ubaldo three times daily metformin 500 mg Tab 500 mg = 1 tab(s), Oral, TID, # 270 tab(s), Refills(s) 1, Pharmacy: [facility]/pharmacy #[id number], 170.2, cm, 12/30/22 15:16:00 EST, Height/Length Dosing, 112.6, kg, 12/30/22 15:16:00 EST, Weight Dosing Start Date: 12/30/22 Status: Ordered Start: 09-17-2022 take 1 tablet by ubaldo three times daily metformin 500 mg Tab 500 mg = 1 tab(s), Oral, TID, # 270 tab(s), Refills(s) 1, Pharmacy: [facility]/pharmacy #[id number], 170.2, cm, 06/01/22 8:48:00 EDT, [...] day(s), # 21 tab(s), Refills(s) 0, Pharmacy: [facility]/pharmacy #[id number], 170.3, cm, 10/11/23 15:26:00 EDT, Height/Length Dosing, 104.8, kg, 10/11/23 15:26:00 EDT, Weight Dosing Start Date: 10/11/23 Stop Date: 10/17/23 Status: Ordered mupirocin 0.02 mg/mg topical ointment (4 sources) RNA Synthetase Inhibitor Antibacterial Start: 06-01-2022 mupirocin Top 2% Oint 1 janell, Topical, TID, 30 gram, Refill(s) 1, [facility]/pharmacy #[id number], 170.2, cm, 06/01/22 8:48:00 EDT, [...] pain, # 28 cap(s), Refills(s) 0, Pharmacy: [facility]/pharmacy #[id number], 170.3, cm, 10/11/23 15:26:00 EDT, Height/Length [...] Daily, # 90 tab(s), Refills(s) 3, Pharmacy: [facility]/pharmacy #[id number], 170.2, cm, 12/30/22 15:16:00 EST, Height/Length Dosing, 112.6, kg, 12/30/22 15:16:00 EST, Weight Dosing Start Date: 12/30/22 Status: Ordered Problems Active Problems Problem Classification Problem Date Documented Da te Episodic/Chronic Abdominal pain (19 sources) Right inguinal pain; Translations: [Right lower quadrant pain] Onset: 10-29-2023 Resolved: 10-29-2023 08-31-2023 Episodic Acute cerebrovascular disease (5 sources) Nontraumatic subarachnoid hemorrhage, unspecified; Translations: [Hemorrhage [...] OP CDI policy. Chronic ulcer of skin (19 sources) Pressure ulcer of buttock stage 1; Translations: [Pressure ulcer of unspecified buttock, stage 1] Onset: 10-29-2023 Resolved: 10-29-2023 10-10-2023 Chronic Comment on above: added per 10/10/2023 query response. Diabetes mellitus with complications (20 sources) Type 2 diabetes mellitus with unspecified complications; Translations: [Renal disorder due to type 2 diabetes mellitus] Onset: 10-03-2015 Resolved: 10-29-2023 Chronic Diabetes mellitus without complication (18 sources) Diabetes mellitus; Translations: [Type 2 diabetes [...] encounter] Onset: 12-27-2023 Episodic Melanomas of skin (6 sources) Melanoma in situ of other parts of face; Translations: [Malignant melanoma] Onset: 11-04-2023 01-09-2024 Chronic Nonspecific chest pain (1 source) Chest pain 12-30-2022 Episodic Other aftercare (3 sources) Post-discharge follow-up 01-09-2024 Episodic Other ear and sense organ disorders (20 sources) Hearing loss; Translations: [Unspecified hearing loss, unspecified ear] Onset: 10-29-2023 Resolved: 10-29-2023 12-10-2021 Chronic Other injuries and conditions due to external causes (3 sources) Closed injury of head 01-09-2024 Episodic Other injuries and conditions due to external causes (3 sources) Contusion 01-09-2024 Episodic Other male genital [...] nose] 12-21-2023 Episodic Other non-traumatic joint disorders (6 sources) Knee pain 06-23-2023 Episodic Other non-traumatic [...] Chronic Other nutritional; endocrine; and metabolic disorders (5 sources) Body mass index 30+ - obesity 01-09-2024 Chronic Residual codes; unclassified (16 sources) Obstructive sleep apnea syndrome; Translations: [Obstructive sleep apnea (adult) (pediatric)] Onset: 12-14-2023 12-10-2021 Chronic Residual codes; unclassified (6 sources) Obstructive sleep apnea (adult) (pediatric); Translations: [OBSTRUCTIVE SLEEP APNEA] Onset: 01-08-2022 Chronic Residual codes; unclassified (1 source) Peripheral edema 04-23-2024 Episodic Spondylosis; intervertebral disc disorders; other back problems [...] 36.0 to 36.9 in adult] Onset: 12-14-2023 Unclassified (1 source) Non-smoker 05-03-2024 Past or Other Problems Problem Classification Problem Date Documented Date Episodic/Chronic Joint disorders and dislocations; trauma-related (14 sources) Derangement of left knee; Translations: [Unspecified internal derangement of left knee] Onset: 10-29-2023 Resolved: 10-29-2023 10-29-2023 Chronic Osteoarthritis (20 sources) Degenerative joint disease of shoulder region; Translations: [Primary osteoarthritis, unspecified shoulder] Onset: 01-17-2012 Resolved: 10-29-2023 01-17-2012 Chronic Other aftercare (1 source) 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; 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] Onset: 01-31-2022 Episodic Other aftercare (1 source) Other custodial (current) drug therapy; Translations: [OTH RESIDENTIAL CURRENT [...] Name Value Interpretation Reference Range Facil ity Ambulatory Visit Summaryon 0 05-03-2024 Ambulatory Visit Summary Ambulatory Visit Summary JOCELYN HUSSEIN :1955 Visit Date:05/03/2024 Ambulatory Visit Instructions Your Diagnosis BMI 39.0-39.9,adult Obesity (BMI 30-39.9) Nonsmoker Diabetic nephropathy Malignant melanoma Peripheral edema Stage 3a chronic kidney disease (CKD) Type 2 diabetes mellitus with hyperlipidemia Your Care Team Attending Physician - Shivani Limon MD Primary Care Physician - Shivani Limon MD This Is Your Medications List furosemide (Lasix 40 mg Tab) hydrochlorothiazide- losartan (hydrochlorothiazide -losartan 12.5 mg-100 mg oral tablet) potassium chloride (Potassium Chloride (Eqv-K-Tab) 20 mEq oral tablet, extended release) Contact prescribing physician if questions or concerns allopurinol (allopurinol 300 mg Tab) atorvastatin (atorvastatin 10 mg Tab) levothyroxine (levothyroxine 75 mcg (0.075 mg) Tab) meloxicam (meloxicam 15 mg Tab) metformin (Glucophage XR 500 mg Tab-ER) metformin (MetFORMIN (Eqv-Glucophage XR) 500 mg oral tablet, extended release) metoprolol (metoprolol succinate 100 mg ER Tab) Procedures Performed Colonoscopy (01/27/2022), Cataract extraction, Cystoscopy, Lithotripsy, Tonsillectomy. Discharge Vitals Respiratory Rate 18 Blood Pressure 148/92 Height 170.1 cm Height 67 in Weight 115 kg Weight 253.531 lb BMI 39.75 What to do next Scheduled Follow-Up Appointments Tuesday 8:00 AM EST Where: [facility] [address] [place] [address]- Medications What How Much When Why Instructions Unchanged furosemide (Lasix 40 mg Tab) 1 Tablets By Mouth Every day Peripheral edema Diabetic nephropathy Malignant melanoma Stage 3a chronic kidney disease (CKD) Type 2 diabetes mellitus with hyperlipidemia Pickup at [facility]/pharmacy #[id number] Unchanged hydrochlorothiazide- losartan (hydrochlorothiazide -losartan 12.5 mg-100 mg oral tablet) See instructions TAKE 1 TABLET BY MOUTH EVERY DAY Pickup at [facility]/pharmacy #[id number] Unchanged potassium chloride (Potassium Chloride (Eqv-K-Tab) 20 mEq oral tablet, extended release) 1 Tablets By Mouth Every day Peripheral edema Diabetic nephropathy Malignant melanoma Stage 3a chronic kidney disease (CKD) Type 2 diabetes mellitus with hyperlipidemia Pickup at [facility]/pharmacy #[id number] Unchanged allopurinol (allopurinol 300 mg Tab) See instructions TAKE 1 TABLET BY MOUTH EVERY DAY Contact prescribing physician if questions or concerns Unchanged atorvastatin (atorvastatin 10 mg Tab) See instructions TAKE 1 TABLET BY MOUTH EVERY DAY Contact prescribing physician if questions or concerns Unchanged levothyroxine (levothyroxine 75 mcg (0.075 mg) Tab) See instructions TAKE 1 TABLET BY MOUTH EVERY DAY Contact prescribing physician if questions or concerns Unchanged meloxicam (meloxicam 15 mg Tab) See instructions TAKE 1 TABLET BY MOUTH EVERY DAY Contact prescribing physician if questions or concerns Unchanged metformin (Glucophage XR 500 mg Tab-ER) 2 Tablets By Mouth 2 times a day Contact prescribing physician if questions or concerns Unchanged metformin (MetFORMIN (Eqv-Glucophage XR) 500 mg oral tablet, extended release) See instructions TAKE 2 TABLETS BY MOUTH TWICE A DAY Contact prescribing physician if questions or concerns Unchanged metoprolol (metoprolol succinate 100 mg ER Tab) 1 Tablets By Mouth Every day Contact prescribing physician if questions or concerns Pharmacy Information [facility]/pharmacy #[id number]: [address], [place] [id number] [phone] Allergies lisinopril (Unknown) Problems Ongoing - Any problem that you are currently receiving treatment for. Asthma Back pain with right-sided sciatica Gray's palsy Benign hypertension with CKD (chronic kidney disease) stage III Bilateral hip pain BMI 36.0-36.9,adult BMI 39.0-39.9,adult Closed injury of head Contusion Decubitus ulcer of buttock, stage 1 Diabetic nephropathy Gout Hearing loss History of nephrolithiasis Hospital discharge follow-up HTN (hypertension) Hyperlipidemia Left knee pain Malignant melanoma Nonsmoker Obesity (BMI 30-39.9) AVELINA (obstructive sleep apnea) Peripheral edema Right groin pain Right hip pain Stage [...] choosing us for your care. Normal [facility] Family Medicine Office/Clini c Noteon 05-03-2024 Family Medicine Office/Clinic Note Family Medicine Office/Clinic Note Chief Complaint 1wk follow up to edema Persistent swelling in the legs despite previous treatments. HPI Staff 1wk follow up to starting furosemide & potassium due to peripheral edema. Has noticed swelling has improved. History of Present Illness The patient is a 69-year-old male presenting with peripheral edema. He reports some improvement in the swelling, yet it remains evident. The edema has persisted longer than the initially expected five-day resolution period, and its longevity has been exacerbated by limited activity and substantial time spent seated in a recliner. This sedentary lifestyle has correlated with a decrease in his activity level, potentially worsening the fluid retention in his legs. The patient has a history of untreated possible cardiac issues and has not previously had an echocardiogram, which is under consideration to investigate cardiac function related to the fluid retention. Additionally, the patient shares concerns of increased fatigue and instances of excessive tiredness, also potentially related to inadequate restful sleeping positions and untreated CPAP usage. Given his existing conditions of chronic kidney disease and diabetes, he displays notable risk factors for exacerbated fluid retention and possible heart complications. Review of Systems PHQ Score Initial Depression Screen Score: 0 SCORE Physical Exam Vitals & Measurements RR: 18 BP: 148/92 HT: 67 in HT: 170.1 cm WT: 115 kg WT: 253.531 lb BMI: 39.75 General: alert, no acute distress ENMT: oral mucosa moist Cardiovascular: Regular rate and rhythm, normal peripheral perfusion Respiratory: Lungs clear to auscultation, respirations non labored Extremities: some swelling present Neurological: oriented x 4, level of consciousness appropriate for age, CN II-XII intact, motor strength equal & normal bilaterally, speech normal Abdomen: Soft, Non-tender, Non-distended, + Bowel sounds Assessment/Plan 1. BMI 39.0-39.9,adult (Z68.39: Body mass index [BMI] 39.0-39.9, adult) BMI education added Ordered: Echo Transthoracic Complete 2. Obesity (BMI 30-39.9) (E66.9: Obesity, unspecified) Diet and exercise advised. Ordered: Echo Transthoracic Complete 3. Nonsmoker (Z78.9: Other specified health status) Please continue to not smoke. Ordered: Echo Transthoracic Complete Diabetic nephropathy (E11.21: Type 2 diabetes mellitus with diabetic nephropathy) Follow up with eye exam. Ordered: furosemide, 40 mg = 1 tab(s), Oral, Daily, # 30 tab(s), Refills(s) 0, Pharmacy: [facility]/pharmacy #[id number], 170.1, cm, 05/03/24 14:47:00 EDT, Height/Length Dosing, 115, kg, 05/03/24 14:47:00 EDT, Weight Dosing potassium chloride, 20 mEq = 1 tab(s), Oral, Daily, # 30 tab(s), Refills(s) 0, Pharmacy: [facility]/pharmacy #[id number], 170.1, cm, 05/03/24 14:47:00 EDT, Height/Length Dosing, 115, kg, 05/03/24 14:47:00 EDT, Weight Dosing Echo Transthoracic Complete Malignant melanoma (C43.9: Malignant melanoma of skin, unspecified) Removed. Ordered: furosemide, 40 mg = 1 tab(s), Oral, Daily, # 30 tab(s), Refills(s) 0, Pharmacy: [facility]/pharmacy #[id number], 170.1, cm, 05/03/24 14:47:00 EDT, Height/Length Dosing, 115, kg, 05/03/24 14:47:00 EDT, Weight Dosing potassium chloride, 20 mEq = 1 tab(s), Oral, Daily, # 30 tab(s), Refills(s) 0, Pharmacy: [facility]/pharmacy #[id number], 170.1, cm, 05/03/24 14:47:00 EDT, Height/Length Dosing, 115, kg, 05/03/24 14:47:00 EDT, Weight Dosing Echo Transthoracic Complete Peripheral edema (R60.0: Localized edema) Ongoing peripheral edema was addressed due to incomplete resolution over the past five days despite intervention attempts. This persistent symptom may result from extended periods seated in a recliner, reduced activity level, or cardiovascular issues. I recommended the initiation of chronic furosemide (Lasix) use to assist in fluid management. The importance of compliance and monitoring of symptoms with this medication was emphasized during the discussion. Ordered: furosemide, 40 mg = 1 tab(s), Oral, Daily, # 30 tab(s), Refills(s) 0, Pharmacy: [id number], 170.1, cm, 05/03/24 14:47:00 EDT, Height/Length Dosing, 115, kg, 05/03/24 14:47:00 EDT, Weight Dosing potassium chloride, 20 mEq = 1 tab(s), Oral, Daily, # 30 tab(s), Refills(s) 0, Pharmacy: [id number], 170.1, cm, 05/03/24 14:47:00 EDT, Height/Length Dosing, 115, kg, 05/03/24 14:47:00 EDT, Weight Dosing Echo Transthoracic Complete Stage 3a chronic kidney disease (CKD) (N18.31: Chronic kidney disease, stage 3a) Will check at next visit. Ordered: furosemide, 40 mg = 1 tab(s), Oral, Daily, # 30 tab(s), Refills(s) 0, Pharmacy: [facility]/pharmacy #[id number], 170.1, cm, 05/03/24 14:47:00 EDT, Height/Length Dosing, 115, kg, 05/03/24 14:47:00 EDT, Weight Dosing potassium chloride, 20 mEq = 1 tab(s), Oral, Daily, # 30 tab(s), Refills(s) 0, Pharmacy: [facility]/pharmacy #[id number], 170.1, cm, 05/03/24 14:47:00 EDT, Height/Length Dosing, 115, kg, 05/03/24 14:47:00 EDT, Weight D (more content not included)... Normal [facility] Comment on above: Result Comment: Elec tronically Signed By: Ashly HENDRICKS, Shivani Power.br\Date and Time Signed: 05/03/24 15:13 EDT Ambulatory Visit Summaryon 0 04-23-2024 Ambulatory Visit Summary Ambulatory Visit Summary JOCELYN HUSSEIN :1955 Visit Date:04/23/2024 Ambulatory Visit Instructions Your Diagnosis Peripheral edema Diabetic nephropathy Malignant melanoma Stage 3a chronic kidney disease (CKD) Type 2 diabetes mellitus with hyperlipidemia Hyperlipidemia, unspecified Your Care Team Attending Physician - Shivani Limon MD Primary Care Physician - Shivani Limon MD This Is Your Medications List Contact prescribing physician if questions or concerns allopurinol (allopurinol 300 mg Tab) allopurinol (allopurinol 300 mg Tab) atorvastatin (atorvastatin 10 mg Tab) hydrochlorothiazide- losartan (hydrochlorothiazide -losartan 12.5 mg-100 mg oral tablet) hydrochlorothiazide- losartan (hydrochlorothiazide -losartan 12.5 mg-100 mg oral tablet) levothyroxine (levothyroxine 75 mcg (0.075 mg) Tab) meloxicam (meloxicam 15 mg Tab) metformin (Glucophage XR 500 mg Tab-ER) metformin (MetFORMIN (Eqv-Glucophage XR) 500 mg oral tablet, extended release) metoprolol (metoprolol succinate 100 mg ER Tab) Procedures Performed Colonoscopy (01/27/2022), Cataract extraction, Cystoscopy, Lithotripsy, Tonsillectomy. Discharge Vitals Heart Rate (Peripheral) 82 Respiratory Rate 16 Blood Pressure 162/87 Height 170.1 cm Height 67 in Weight 114.5 kg Weight 252.429 lb BMI 39.57 What to do next Scheduled Follow-Up Appointments 2024 2:45 PM EDT With: Shivani Limon MD Where: [address] [address]- Tuesday 8:00 AM EST With: Where: [address] [address]- Medications What How Much When Instructions Unchanged allopurinol (allopurinol 300 mg Tab) See instructions TAKE 1 TABLET BY MOUTH EVERY DAY Contact prescribing physician if questions or concerns Unchanged allopurinol (allopurinol 300 mg Tab) See instructions TAKE 1 TABLET BY MOUTH EVERY DAY Contact prescribing physician if questions or concerns Unchanged atorvastatin (atorvastatin 10 mg Tab) See instructions TAKE 1 TABLET BY MOUTH EVERY DAY Contact prescribing physician if questions or concerns Unchanged hydrochlorothiazide- losartan (hydrochlorothiazide -losartan 12.5 mg-100 mg oral tablet) See instructions TAKE 1 TABLET BY MOUTH EVERY DAY Contact prescribing physician if questions or concerns Unchanged hydrochlorothiazide- losartan (hydrochlorothiazide -losartan 12.5 mg-100 mg oral tablet) 1 Tablets By Mouth Every day Contact prescribing physician if questions or concerns Unchanged levothyroxine (levothyroxine 75 mcg (0.075 mg) Tab) See instructions TAKE 1 TABLET BY MOUTH EVERY DAY Contact prescribing physician if questions or concerns Unchanged meloxicam (meloxicam 15 mg Tab) See instructions TAKE 1 TABLET BY MOUTH EVERY DAY Contact prescribing physician if questions or concerns Unchanged metformin (Glucophage XR 500 mg Tab-ER) 2 Tablets By Mouth 2 times a day Contact prescribing physician if questions or concerns Unchanged metformin (MetFORMIN (Eqv-Glucophage XR) 500 mg oral tablet, extended release) See instructions TAKE 2 TABLETS BY MOUTH TWICE A DAY Contact prescribing physician if questions or concerns Unchanged metoprolol (metoprolol succinate 100 mg ER Tab) 1 Tablets By Mouth Every day Contact prescribing physician if questions or concerns Allergies lisinopril (Unknown)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 nonstressed, ambulatory subject supports the diagnosis of Diabetes Mellitus. Performed By: #### G LULS #### Point of Care testing , GLUCOSE POCT GLUCOMETERSon 0 11-04-2023 COMMEMT1 Glu2: Cleaned Meter [facility] Glucose [Mass/Vol] 132 mg/dL [facility] Comment on above: Random Glucose Refer ence Range is dependent on time and content of last meal. Glucose of more than 200 mg/dL in a nonstressed, ambulatory subject supports the diagnosis of Diabetes Mellitus. [facility] Glucose Poct Glucometerson 0 11-04-2023 Glucose [Mass/Vol] 131 mg/dL Normal [facility] Comment on above: Result Comment: [facility] Glucose Reference Range is dependent on time and content of last meal. Glucose of more than 200 mg/dL in a nonstressed, ambulatory subject supports the diagnosis of Diabetes Mellitus. PERFORMED BY: [address] [place] [address] PATHOLOGIST CARTOGRAPHY TEACHER JEVON DAILEY M.D. Performed By: #### G LULS #### Point of Care testing , Commemt1 Glu2: Cleaned Meter Normal [facility] Comment on above: Result Comment: PERF ORMED BY: [facility] [address] [place] [address] PATHOLOGIST CARTOGRAPHY TEACHER JEVON DAILEY M.D. Performed By: #### G LULS #### Point of Care testing , Jose 11-04-2023 L Specimen: [id number] Received: 11/04/23 Status: CUATE Torres Num: [id number] Spec Type: Surgical Subm Dr: Hugo Power DO Tissues: A Skin-Other than Cyst, tag, debridement or plastic repair (NOSE) Procedures: HE/10, Gross/Micro L4 Age/ Patient Sex Location Account Attending Physician Jocelyn Hussein 68/M ID [id number] Hugo Power DO SPEC NUM: [id number] RECD: 11/04/23 STATUS: CUATE VELASQUEZJessica NUM: [id number] ESHA: 11/04/23 DR: Hugo Power DO ENTERED: 11/04/[address] [facility] [address]: SPEC TYPE: Surgical DEPT: S ENTERED BY: [id number] RECV BY: [id number] ORDERED: HE/10, Gross/Micro L4 ORDERED: HE/10, Gross/Micro [...] A2 mid sections A3 6:00 trisected Specimen: [id number] Received: 11/04/23 Status: CUATE Melissa Num: [id number] Spec Type: Surgical Subm Dr: Hugo Power DO Tissues: A Skin-Other than Cyst, tag, debridement or plastic repair (NOSE) Procedures: Daphne/Gail L4 Patient: JovitaJocelyn Cory [id number] (Continued) Specimen: [id number] Received: 11/04/23 (Continued) Signed (signature on file) Ramandeep Coto MD 11/10/23 1824 Specimen: [id number] Received: 11/04/23 Status: CUATE Torres Num: [id number] Spec Type: Surgical Subm Dr: Hugo Power DO Tissues: A Skin-Other than Cyst, tag, debridement or plastic repair (NOSE) Procedures: Daphne/Gail L4 Patient: Jocelyn Hussein [id number] (Continued) Specimen: [id number] Received: 11/04/23 (Continued) CPT Codes 90012 Specimen: [id number] Received: 11/04/23 Status: CUATE Torres Num: [id number] Spec Type: Surgical Subm Dr: Hugo Power DO Tissues: A Skin-Other than Cyst, tag, debridement or plastic repair (NOSE) Procedures: Mitesh, Gross/Micro L4 Patient: Jocelyn Hussein [id number] (Continued) Signed (signature on file) Ramandeep Coto MD 11/10/23 1824 Normal [facility] No Panel InformationOrdered By: Hugo Power on 11-04-2023 Bedside Glucose Comment Glu2: cleaned meter [facility] Automated basophil %Ordered By: Hugo Power on 11-01-2023 Basophils/100 WBC (Bld) 0.8 % Normal . [facility] Comment on above: Performed By: #### B MP, CBC #### [facility] [address] Automated basophil countOrde red By: Hugo Power on 11-01-2023 Basophils (Bld) [#/Vol] 0.0 10*3/uL Normal 0.0-0.2 [facility] Comment on above: Result Comment: PERF ORMED BY: [facility] [address] [place] [address] PATHOLOGIST CARTOGRAPHY TEACHER JEVON DAILEY M.D. Performed By: #### B MP, CBC #### [facility] [address] Automated blood monocyte cou ntOrdered By: Hugo Power on 11-01-2023 Monocytes (Bld) [#/Vol] 0.7 10*3/uL Normal 0.0-0.8 [facility] Comment on above: Performed By: #### B MP, CBC #### [facility] [address] Automated eosinophil %Ordere d By: Hugo Power on 11-01-2023 Eosinophils/100 WBC (Bld) 7.5 % Normal . [facility] Comment on above: Performed By: #### B MP, CBC #### [facility] [address] [place] [address] Automated eosinophil countOr dered By: Hugo Power on 11-01-2023 Eosinophils (Bld) [#/Vol] 0.5 10*3/uL High 0.0-0.45 [facility] Comment on above: Performed By: #### B MP, CBC #### [address] Automated monocyte %Ordered By: Hugo Power on 11-01-2023 Monocytes/100 WBC (Bld) 10.5 % Normal . [facility] Comment on above: Performed By: #### B MP, CBC #### [address] Automated neutrophil %Ordere d By: Hugo Power on 11-01-2023 Neutrophils/100 WBC (Bld) 56.2 % Normal . [facility] Comment on above: Performed By: #### B MP, CBC #### [address] Basic Metabolic Panelon 10-22 GFR/1.73 sq M.predicted MDRD (S/P/Bld) [Vol rate/Area] mL/min/{1.73_m2} Normal [facility] Comment on above: Performed By: #### B MP, CBC #### [address] Basic metabolic 1998 panelon 11-01-2023 Anion gap [Moles/Vol] 12.9 mmol/L 6.0 - 15.0 [facility] Calcium [Mass/Vol] 9.1 mg/dL 8.6 - 10.3 mg/dL [facility] Chloride [Moles/Vol] 104 mmol/L 98 - 107 mmol/L [facility] CO2 [Moles/Vol] 24.3 mmol/L 21.0 - 31.0 mmol/L [facility] Creatinine (U) [Mass/Vol] 1.15 mg/dL 0.70 - 1.30 mg/dL [facility] GFR/1.73 sq M.predicted MDRD (S/P/Bld) [Vol rate/Area] mL/min/{1.73_m2} [facility] Glucose [Mass/Vol] 117 mg/dL High 70 - 100 mg/dL NO [facility] Comment on above: Random Glucose Refer ence Range is dependent on time and content of last meal. Glucose of more than 200 mg/dL in a nonstressed, ambulatory subject supports the diagnosis of Diabetes Mellitus. ADA recommended reference range Interpretation and review of laboratory results Abnormal [facility] Potassium [Moles/Vol] 4.2 mmol/L 3.5 - 5.1 mmol /L [facility] Comment on above: Hemolysis is present at a level that could interfere with the result. Contact lab if redraw is required Sodium [Moles/Vol] 137 mmol/L 136 - 145 mmol/L [facility] Urea nitrogen [Mass/Vol] 27 mg/dL High 7 - 25 mg/dL [facility] CBC W Auto Differential pane l (Bld)on 11-01-2023 Basophils (Bld) [#/Vol] 0.0 10*3/uL 0.0 - 0.2 10*3/uL [facility] Basophils/100 WBC Manual cnt (Syn fld) 0.8 % . [facility] Eosinophils (Bld) [#/Vol] 0.5 10*3/uL High 0.0 - 0.45 10*3/uL [facility] Eosinophils/100 WBC Manual cnt (Syn fld) 7.5 % . [facility] Erythrocyte distribution width (RBC) [Ratio] 13.0 % 12.0 - 14.8 % [facility] Hematocrit (Bld) [Volume fraction] 36.1 % Low 38.8 - 50.0 % [facility] Hemoglobin (Bld) [Mass/Vol] 12.3 g/dL Low 13.0 - 17.0 g/dL [facility] Interpretation and review of laboratory results Abnormal [facility] Lymphocytes (Bld) [#/Vol] 1.6 10*3/uL 1.00 - 4.8 10*3/uL [facility] Lymphocytes/100 WBC Manual cnt (Syn fld) 25.0 % . [facility] MCH (RBC) [Entitic mass] 31.6 pg 27.5 - 35.2 pg [facility] MCHC (RBC) [Mass/Vol] 34.0 g/dL 32.5 - 35.6 g/ dL [facility] MCV (RBC) [Entitic vol] 93.0 fL 83.5 - 101 fL [facility] Monocytes (Bld) [#/Vol] 0.7 10*3/uL 0.0 - 0.8 10*3/uL [facility] Monocytes+Macrophages/ 100 WBC Manual cnt (Syn fld) 10.5 % . [facility] Neutrophils (Bld) [#/Vol] 3.6 10*3/uL 1.8 - 7.7 10*3/uL [facility] Neutrophils/100 WBC Manual cnt (Syn fld) 56.2 % . [facility] NRBC 0.1 /100{WBC} 0 - 0.5 /100{WBC} [facility] Platelet mean volume (Bld) [Entitic vol] 6.6 fL 6.6 - 10.1 fL [facility] Platelets (Bld) [#/Vol] 205 10*3/uL 150 - 450 10*3/uL [facility] RBC LM.HPF (Urine sed) [#/Area] 3.88 /[HPF] Low 3.90 - 5.60 [facility] WBC (Bld) [#/Vol] 6.4 10*3/uL 4.1 - 10.5 10*3/uL [facility] WBC LM.HPF (Urine sed) [#/Area] 6.4 10*3/uL 4.1 - 10.5 10*3/uL [facility] Calcium [Mass/volume] in Ser um or PlasmaOrdered By: Hugo Power on 11-01-2023 Calcium [Mass/Vol] 9.1 mg/dL Normal 8.6-10.3 [facility] Comment on above: Result Comment: PERF ORMED BY: [place] [address] PATHOLOGIST CARTOGRAPHY TEACHER JEVON DAILEY M.D. Performed By: #### B MP, CBC #### [address] Carbon dioxide, total [Moles /volume] in Serum or PlasmaOrdered By: Hugo Power on 11-01-2023 CO2 [Moles/Vol] 24.3 mmol/L Normal 21.0-31.0 [facility] Comment on above: Performed By: #### B MP, CBC #### [facility] [address] [place] [address] Chloride [Moles/volume] in S charles or PlasmaOrdered By: Hugo Power on 11-01-2023 Chloride [Moles/Vol] 104 mmol/L Normal 98-[address] [facility] Comment on above: Performed By: #### B MP, CBC #### [facility] [address] [place] [address] Complete Blood Count Auto Di ffon 11-01-2023 Mean Corpuscular HGB Conc 34.0 g/dL Normal 32.5-35.6 [facility] Comment on above: Performed By: #### B MP, CBC #### [facility] [address] [place] [address] NRBC% 0.1 /100{WBC} Normal 0-0.5 [facility] Comment on above: Performed By: #### B MP, CBC #### [address] Creatinine [Mass/volume] in Serum or PlasmaOrdered By: Hugo Power on 11-01-2023 Creatinine [Mass/Vol] 1.15 mg/dL Normal 0.70-1.30 [facility] Comment on above: Performed By: #### B MP, CBC #### [place] [address] [place] ECG 12 lead ECGon 11-01-2023 ECG 12 lead ECG [facility] Main [place] [address] [place] [address] Electrocardiograph Report Signed Patient: Jocelyn Hussein MR#: [id number] : 1955 Acct:[id number] Age/Sex: 68 / M ADM Date: 11/01/23 Loc: Room: Type: [facility] CLI Attending Dr: Hugo Power DO Ordering Provider: [...] previous ECGs available Confirmed by Kari Campuzano ([id number]) on 11/02/2023 12:04:39 PM Referred By: Electronically Signed By: Kari Campuzano Transcribed By: MUS Signed By Kari Campuzano DO 4 1204 Normal [facility] Erythrocyte distribution wid th [Ratio] by Automated countOrdered By: Hugo Power on 11-01-2023 Erythrocyte distribution width (RBC) [Ratio] 13.0 % Normal 12.0-14.8 [facility] Comment on above: Performed By: #### B MP, CBC #### [facility] [address] [place] [address] [place] Erythrocytes [#/volume] in B lood by Automated countOrdered By: Hugo Power on 11-01-2023 RBC (Bld) [#/Vol] 3.88 10*6/uL Low 3.90-5.60 [facility] Comment on above: Performed By: #### B MP, CBC #### [facility] [address] [place] [id number] [place] Glucose [Mass/volume] in Ser um or PlasmaOrdered By: Hugo Power on 11-01-2023 Glucose [Mass/Vol] 117 mg/dL High 70-100 [facility] Comment on above: ADA recommended refe rence rangeRandom Glucose Reference Range is dependent on time and content of last meal. Glucose of more than 200 mg/dL in a nonstressed, ambulatory subject supports the diagnosis of Diabetes Mellitus. Result Comment: [place] [facility] Glucose Reference Range is dependent on time and content of last meal. Glucose of more than 200 mg/dL in a nonstressed, ambulatory subject supports the diagnosis of Diabetes Mellitus. ADA recommended reference range Performed By: #### B MP, CBC #### [address] Hematocrit [Volume Fraction] of Blood by Automated countOrdered By: Hugo Power on 11-01-2023 Hematocrit (Bld) [Volume fraction] 36.1 % Low 38.8-50.0 [facility] Comment on above: Performed By: #### B MP, CBC #### [address] Hemoglobin [Mass/volume] in BloodOrdered By: Hugo Power on 11-01-2023 Hemoglobin (Bld) [Mass/Vol] 12.3 g/dL Low 13.0-17.0 [facility] Comment on above: Performed By: #### B MP, CBC #### [address] Leukocytes [#/volume] correc odalis for nucleated erythrocytes in Blood by Automated counOrdered By: Hugo Power on 11-01-2023 WBC corrected for nucl RBC Auto (Bld) [#/Vol] 6.4 10*3/uL 4.1-10.5 [facility] Leukocytes [#/volume] in Blo od by Automated countOrdered By: Hugo Power on 11-01-2023 WBC (Bld) [#/Vol] 6.4 10*3/uL Normal 4.1-10.5 [facility] Comment on above: Performed By: #### B MP, CBC #### [place] [address] [place] Lymphocytes [#/volume] in Bl ood by Automated countOrdered By: Hugo Power on 11-01-2023 Lymphocytes (Bld) [#/Vol] 1.6 10*3/uL Normal 1.00-4.8 [facility] Comment on above: Performed By: #### B MP, CBC #### [place] [address] [place] Lymphocytes/100 leukocytes i n Blood by Automated countOrdered By: Hugo Power on 11-01-2023 Lymphocytes/100 WBC (Bld) 25.0 % Normal . [facility] Comment on above: Performed By: #### B MP, CBC #### [facility] [address] [place] [address] MCH [Entitic mass] by Automa odalis countOrdered By: Hugo Power on 11-01-2023 MCH (RBC) [Entitic mass] 31.6 pg Normal 27.5-35.2 [facility] Comment on above: Performed By: #### B MP, CBC #### [facility] [address] [place] [address] MCHC Auto (RBC) [Mass/Vol]Or dered By: Hugo Power on 11-01-2023 MCHC (RBC) [Mass/Vol] 34.0 g/dL 32.5-35.6 [facility] MCV [Entitic volume] by Auto mated countOrdered By: Hugo Power on 11-01-2023 MCV (RBC) [Entitic vol] 93.0 fL Normal 83.5-101 [facility] Comment on above: Performed By: #### B MP, CBC #### [facility] [address] [place] [address] Neutrophils [#/volume] in Bl ood by Automated countOrdered By: Hugo Power on 11-01-2023 Neutrophils (Bld) [#/Vol] 3.6 10*3/uL Normal 1.8-7.7 [facility] Comment on above: Performed By: #### B MP, CBC #### [facility] [address] [place] [address] No Panel InformationOrdered By: Hugo Power on 11-01-2023 Estimated GFR (CKD-EPI) > 60.0 mL/Min [facility] Creatinine Clearance (Chem N/A [facility] Nucleated erythrocytes [Pres ence] in Blood by Automated countOrdered By: Hugo Power on 11-01-2023 Nucleated RBC Auto Ql (Bld) 0.1 /100{WBC} 0-0.5 [facility] Platelet mean volume [Entiti c volume] in Blood by Automated countOrdered By: Hugo Power on 11-01-2023 Platelet mean volume (Bld) [Entitic vol] 6.6 fL Normal 6.6-10.1 [facility] Comment on above: Performed By: #### B MP, CBC #### [facility] [address] Platelets [#/volume] in Bloo d by Automated countOrdered By: Hugo Power on 11-01-2023 Platelets (Bld) [#/Vol] 205 10*3/uL Normal 150-450 [facility] Comment on above: Performed By: #### B MP, CBC #### [address] Potassium [Moles/volume] in Serum or PlasmaOrdered By: Hugo Power on 11-01-2023 Potassium [Moles/Vol] 4.2 mmol/L Normal 3.5-5.1 [facility] Comment on above: Hemolysis is present at a level that could interfere with the result.Contact lab if redraw is required Result Comment: Hemo lysis is present at a level that could interfere with the result. Contact lab if redraw is required Performed By: #### B MP, CBC #### [address] Serum or plasma anion gap de terminationOrdered By: Hugo Power on 11-01-2023 Anion gap [Moles/Vol] 12.9 mmol/L Normal 6.0-15.0 [facility] Comment on above: Performed By: #### B MP, CBC #### [place] [address] [place] Sodium [Moles/volume] in Ser um or PlasmaOrdered By: Hugo Power on 11-01-2023 Sodium [Moles/Vol] 137 mmol/L Normal 136-145 [facility] Comment on above: Performed By: #### B MP, CBC #### [place] [address] [place] Urea nitrogen [Mass/volume] in Serum or PlasmaOrdered By: Hugo Power on 11-01-2023 Urea nitrogen [Mass/Vol] 27 mg/dL High 7-25 [facility] Comment on above: Performed By: #### B MP, CBC #### [facility] [address] [place] [id number] [facility] C Urineon 10-14-2023 Bacteria identified Cx Nom [...] Locations R1: This test was performed at: [facility], [address] [place] [address], [facility] , , [facility] Comment on above: Performed By: #### 2 [id number] #### [facility] [address] [place] [address] URINALYSISOrdered By: Sy Cadena on 10-12-2023 Bilirubin Ql (U) Negative Normal Negativemg/dL [facility] UA Auto SS Clarity (U) Clear (10/12/23 11:18 AM) Normal Clear [facility] UA Auto SS Color (U) Light-Yellow 1 (10/12/23 11:18 AM) Normal Yellow [facility]A Auto SS Comment on above: Interpretive Data: M icroscopic readings are only performed on those samples that meet specific criteria set forth by [facility]. Glucose Ql (U) 3+ mg/dL Invalid Interpretation Code Negativemg/dL [facility]A Auto SS Hemoglobin Auto test strip (U) [Mass/Vol] Negative (10/12/23 11:18 AM) Normal Negative [facility] UA Auto SS Ketones Auto test strip Ql (U) Negative Normal Negativemg/dL [facility] UA Auto SS Leukocyte esterase Auto test strip Ql (U) Negative (10/12/23 11:18 AM) Normal Negative [facility] UA Auto SS Nitrite Auto test strip Ql (U) Negative Normal Negativemg/dL [facility] UA Auto SS pH (U) 5.0 *NA* (10/12/23 11:18 AM) Invalid Interpretation Code 5.0 - 9.0 [facility] UA Auto SS Protein Ql (U) Trace mg/dL Invalid Interpretation Code Negativemg/dL [facility] UA Auto SS Specific gravity (U) [Rel density] 1.025 *NA* (10/12/23 11:18 AM) Invalid Interpretation Code 1.005 - 1.030 [facility] UA Auto SS Urobilinogen (U) [Mass/Vol] Negative Normal Negativemg/dL [facility] UA Auto SS URINALYSISOrdered By: Amber Ngo on 10-12-2023 UA Spec Desc Clean Catch (10/12/23 11:18 AM) Normal [facility] UA Auto SS Urinalysis with Microon 09-22 Bilirubin Ql (U) Negative Normal Negative [facility] Comment on above: Performed By: #### [id number] #### [facility] [address] [place] [address] Clarity (U) Clear Normal Clear [facility] Comment on above: Performed By: #### 4 [id number] #### [facility] [address] [place] [address] Color (U) Light-Yellow Normal Yellow [facility] Comment on above: Result Comment: Micr oscopic readings are only performed on those samples that meet specific criteria set forth by [facility]. Performed By: #### 4 [id number] #### [facility] [address] [place] [address] Glucose Ql (U) 3+ mg/dL Abnormal Negative [facility] Comment on above: Performed By: #### 4 [id number] #### [facility] [address] [place] [address] Hemoglobin Auto test strip (U) [Mass/Vol] Negative Normal Negative [facility] Comment on above: Performed By: #### 4 [id number] #### [facility] [address] [place] [address] Ketones Auto test strip Ql (U) Negative Normal Negative [facility] Comment on above: Performed By: #### 4 [id number] #### [facility] [address] [place] [address] Leukocyte esterase Auto test strip Ql (U) Negative Normal Negative [facility] Comment on above: Performed By: #### 4 [id number] #### [facility] Laboratory [address] [place] [address] Nitrite Auto test strip Ql (U) Negative Normal Negative [facility] Comment on above: Performed By: #### 4 [id number] #### [facility] Laboratory [address] [place] [address] pH (U) 5.0 [pH] Invalid Interpretation Code 5.0-9.0 [facility] Comment on above: Performed By: #### 4 [id number] #### [facility] Laboratory [address] [place] [address]63 Protein Ql (U) Trace Abnormal Negative [facility] Comment on above: Performed By: #### 4 [id number] #### [facility] Laboratory [address] [place] [address] Specific gravity (U) [Rel density] 1.025 Invalid Interpretation Code 1.005-1.030 [facility] Comment on above: Performed By: #### 4 [id number] #### [facility] Laboratory [address] [place] [address] Urobilinogen (U) [Mass/Vol] Negative Normal Negative [facility] Comment on above: Performed By: #### 4 [id number] #### [facility] Laboratory [address] [place] [address] 11491 Type of Urine collection method Clean Catch Normal [facility] Comment on above: Performed By: #### 4 [id number] #### [facility] Laboratory [address] [place] [address] Ambulatory Visit Summaryon 0 10-11-2023 Ambulatory Visit Summary Ambulatory Visit Summary JOCELYN HUSSEIN DOB:1955 Visit Date:10/11/2023 Ambulatory Visit Instructions Your Diagnosis [...] Care Team Attending Physician - Shivani Limon MD. Primary Care Physician - Shivani Limon MD [...] Appointments Tuesday 11:00 AM EDT With: Where: [address] [address]- Tuesday 8:00 AM EST With: Where: [address] [address]- Tuesday 8:45 AM EST With: Shivani Limon MD Where: [address] [address]- Medications What How Much When Why Instructions [...] you for choosing us for your care. Kehinde Gómez [facility] Family Medicine Office/Clini c Noteon [...] qWeek, # 12 EA, Refills(s) 0, Pharmacy: [id number], 170.3, cm, 10/11/23 15:26:00 EDT, Height/Length [...] qWeek, # 12 EA, Refills(s) 0, Pharmacy: [facility]/pharmacy #6177, 170.3, cm, 10/11/23 15:26:00 EDT, Height/Length [...] qWeek, # 12 EA, Refills(s) 0, Pharmacy: [facility], 170.3, cm, 10/11/23 15:26:00 EDT, Height/Length [...] qWeek, # 12 EA, Refills(s) 0, Pharmacy: [facility], 170.3, cm, 10/11/23 15:26:00 EDT, Height/Length [...] 3008F Current (more content not included)... Normal [facility] Comment on above: Result Comment: Elec tronically Signed By: Shivani Limon MD\.br\Date and Time Signed: 10/11/23 15:33 EDT Pre-Visit Planningon 024 Pre-Visit Planning Pre-Visit Planning - From: Modesta Mahmood To: Shivani Limon MD; Sent: 10/10/2023 10:36:27 EDT Subject: Pre-Visit Planning Due Date/Time: 10/10/2023 10:36:00 EDT Caller Name: JOCELYN HUSSEIN; Caller Number: , Ct Dr. Limon. During a pre-visit planning chart review, I noted the following documentation in the medical record: 09/12/2023 [facility] ED Note (page 1 and page [...] feel free to contact me at extension [phone]. Thank you! Modesta Mahmood LPN Clinical Efficiency Engineer [place] [address] Extension: [phone] [email or web address] - From: Shivani Limon MD To: Modesta Mahmood; Sent: 10/10/2023 10:49:37 EDT Subject: RE: Pre-Visit Planning Caller Name: JOCELYN HUSSEIN; Caller Number: , M Decubitus ulcer of buttock, stage 1 Normal [facility] Ambulatory Visit Summaryon 0 09-06-2023 Ambulatory Visit [...] AM EDT With: Shivani Limon MD Where: [facility] Invalid Interpretation Code [address] [place] [address]- \.br\ Tuesday 8:45 AM EST \.br\ With: Shivani Limon MD\.br\ Where: [facility] Family Medicine Office/Clini c Noteon 09-06-2023 Family Medicine [...] day(s), # 21 tab(s), Refills(s) 0, Pharmacy: [facility]/pharmacy #[id number], 170.3, cm, 09/06/23 7:42:00 EDT, Height/Length Dosing, 101.3, kg, 09/06/23 7:42:00 EDT, Weight Dosing oxycodone, 5 mg = 1 cap(s), Oral, q6hr, PRN for pain, # 28 cap(s), Refills(s) 0, Pharmacy: [facility]/pharmacy #6177, 170.3, cm, 09/06/23 7:42:00 EDT, Height/Length [...] 12/23/2021 Tobacco (more content not included)... Normal [facility] [...] virus vaccine, inactivated 11/30/2022 Given SARS-CoV-2 (COVID-19) mRNAMUL.ORD![id number] 02/01/2022 Recorded influenza virus vaccine, inactivated 01/07/2022 Recorded influenza virus vaccine, inactivated 01/09/2021 Recorded SARS-CoV-2 (COVID-19) mRNA BNT-162b2 vax 12/16/2020 Recorded 2022-05-28: TPV65 SARS-CoV-2 (COVID-19) mRNA BNT-162b2 vax 04/25/2020 Recorded 2022-05-28: TPV65 SARS-CoV-2 (COVID-19) mRNA BNT-162b2 vax 04/04/2020 Recorded 2022-05-28: TPV65 pneumococcal 13-valent vaccine 12/21/2019 Recorded influenza virus vaccine, inactivated 12/21/2019 Recorded Normal [facility] Comment on above: Result Comment: Elec tronically Signed By: Chet LOVE, Jennie Christianson\.br\Date and Time Signed: 09/02/23 07:55 EDT Surgical pathology studyon 0 08-22-2023 Surgical pathology study Pathology report.total SEE COMMENT Dermatopathology Report Case: [id number] Authorizing Provider: Jayy Garcia MD PhD Collected: 08/22/2023 [facility] Ordering Location: [facility] Received: 08/22/[address] [place] [address] Pathologist: Nabeel Mckoy MD Specimen: OUTSIDE BLOCK(S)/SLIDE(S), 2 SLIDES, [facility], #[id number] (BX: 07/20/23) Path report.final diagnosis SEE COMMENT 2 SLIDES, [facility], #[id number] (BX: 07/20/23) SKIN, RIGHT NOSE, SHAVE BIOPSY: [...] Tumor block is [facility] original case # [id number] Path report.relevant Hx Shave Tangential/Neoplasm of unspecified behavior of bone, soft tissue, and skin. Solar lentigo vs Lentigo maligna. 1.0 x 1.0 cm hyperpigmented patch. Path report.gross observation SEE COMMENT A. OUTSIDE BLOCK(S)/SLIDE(S). Received for consultation from [facility] are two slides labeled [id number] (Bx: 07/20/23) along with the corresponding pathology report. Path report.microscopic observation The Hematoxylin and Eosin stained sections of the trisected shave specimen reveals poorly nested atypical junctional melanocytes along the dermal-epidermal junction with confluence and pagetoid scatter. There is significant dermal solar elastosis. 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 The received deeper additional step sections were additionally reviewed. [facility] Comment on above: Order Comment: Mater ials Received: 2 SLIDES, [facility], #[id number] (BX: 07/20/23) Consultation Noteon 07-25-19 Consultation Note [id number] #1.00[facility] Consultation Noteon 07-21-19 Consultation Note [id number]# 1.00TIFF [facility] Ambulatory Visit Summaryon 0 06-30-2023 Ambulatory Visit Summary JOCELYN HUSSEIN :1955 Visit Date:06/30/2023 Ambulatory Visit Instructions [...] AM EDT With: Shivani Limon MD Where: [facility] Invalid Interpretation Code [address] [place] [address]- \.br\ Tuesday 8:45 AM EST \.br\ With: Shivani Limon MD\.br\ Where: [facility] Family Medicine Office/Clini c Noteon 06-30-2023 Family Medicine Office/Clinic [...] qAM, # 90 tab(s), Refills(s) 1, Pharmacy: [facility]/pharmacy #6177, 170.3, cm, 06/30/23 8:40:00 EDT, Height/Length Dosing, 111.6, kg, 06/30/23 8:40:00 EDT, Weight Dosing metformin, 1,000 mg = 2 tab(s), Oral, BID, # 390 tab(s), Refills(s) 0, Pharmacy: [facility]/pharmacy #6177, 170.3, cm, 06/30/23 8:40:00 EDT, [...] virus vaccine, inactivated 11/30/2022 Given SARS-CoV-2 (COVID-19) mRNAMUL.ORD![id number] 02/01/2022 Recorded influenza virus vaccine, inactivated 01/07/2022 Recorded influenza virus vaccine, inactivated 01/09/2021 Recorded SARS-CoV-2 (COVID-19) mRNA BNT-162b2 vax 12/16/2020 Recorded 2022-05-28: TPV65 SARS-CoV-2 (COVID-19) mRNA BNT-162b2 vax 04/25/2020 Recorded 2022-05-28: TPV65 SARS-CoV-2 (COVID-19) mRNA BNT-162b2 vax 04/04/2020 Recorded 2022-05-28: TPV65 pneumococcal 13-valent vaccine 12/21/2019 Recorded influenza virus vaccine, inactivated 12/21/2019 Recorded Normal [facility] Comment on above: Result Comment: [...] for Disease Control and Prevention: www.cdc.gov ? [employer]: www.heart.org ? National Heart, Lung, and Blood [place]: www.nhlbi.nih.gov Summary ? Body mass index (BMI) [...] provider. Document Revised: 10/31/2019 Document Reviewed: 09/07/2019 [employer]View Patient Education ? 2022 [employer] Normal [facility] Ambulatory Visit Summaryon 0 06-23-2023 Ambulatory Visit Summary JOCELYN HUSSEIN Cory :1955 [...] Appointments Tuesday 8:00 AM EST With: Where: [facility] Invalid Interpretation Code [address] [place] [address]- \.br\ Someone Will Contact You Regarding These Appointments\.br \ [facility] [place], Orthopaedics, Dr. Marmolejo, 06/23/23 8:25:00 EDT, Type 2 diabetes mellitus with hyperlipidemia [facility] Ambulatory Visit Summary JOCELYN HUSSEIN :1955 Visit [...] Appointments Tuesday 8:00 AM EST With: Where: [facility] Invalid Interpretation Code [address] [place] [id number]- \.br\ Someone Will Contact You Regarding These Appointments\.br \ [facility] [place] Ambulatory Referral, Orthopaedics, Dr. Marmolejo, 06/23/23 8:25:00 EDT, Type 2 diabetes mellitus with hyperlipidemia [facility] CBC w/ Auto Diffon 4 Basophils/100 WBC (Bld) 0.9 % Normal 0.0-2.0 [facility] Comment on above: Performed By: #### 2 444518, 3806755, 415344308, 56158013, 83601689, 8071428, 19904630, 6592888 ####[facility] [address] [place] [address] Basophils/Leukocytes Auto (Bld) [Pure # fraction] 0.1 E9/L Normal 0.0-0.2 [facility] Comment on above: Performed By: #### 2 468156, 1592211, 853170925, 91810194, 58973412, 8712303, 12835668, 4112572 ####[facility] [address] [place] [address] Eosinophils (Bld) [#/Vol] 0.6 E9/L High 0.0-0.5 [facility] Comment on above: Performed By: #### 2 564539, 1126228, 576048718, 23653346, 65386143, 4569389, 97325942, 3897446 ####[place] [address] [place] [address] Eosinophils/100 WBC (Bld) 7.7 % Normal 0.0-8.0 [facility] Comment on above: Performed By: #### 2 501047, 2848050, 109458607, 15292515, 19525300, 6971268, 52895167, 3705399 ####[address] [address] Erythrocyte distribution width (RBC) [Ratio] 13.9 % Normal 10.9-14.2 [facility] Comment on above: Performed By: #### 2 609706, 7187945, 561817121, 09068053, 19179637, 3547962, 63856089, 7730105 ####[address] [address] Hematocrit (Bld) [Volume fraction] 42.0 % Normal 37.7-49.0 [facility] Comment on above: Performed By: #### 2 147572, 2762073, 412400381, 62280211, 01346864, 2542037, 39416428, 8024313 ####[address] [address] Hemoglobin (Bld) [Mass/Vol] 13.9 g/dL Normal 13.5-17.5 [facility] Comment on above: Performed By: #### 2 049875, 4736637, 966434497, 28249063, 33227058, 4753283, 43260858, 7882337 ####[address] [address] Lymphocytes (Bld) [#/Vol] 1.7 E9/L Normal 1.0-4.0 [facility] Comment on above: Performed By: #### 2 998368, 5737839, 428777293, 49437861, 89559691, 7328326, 51782908, 5626216 ####[address] [address] Lymphocytes/100 WBC (Bld) 23.9 % Normal 14.0-50.0 [facility] Comment on above: Performed By: #### 2 313055, 1450799, 206164648, 02690476, 32667430, 3591897, 79016733, 1663996 ####[address] [address] MCH (RBC) [Entitic mass] 30.8 pg Normal 27.0-34.0 [facility] Comment on above: Performed By: #### 2 627672, 3521537, 284747047, 30522479, 26748896, 9228421, 52512724, 3223525 ####[address] [address] MCHC (RBC) [Mass/Vol] 33.1 g/dL Normal 31.4-36.0 [facility] Comment on above: Performed By: #### 2 044243, 9319867, 430687764, 29865425, 90751105, 9160240, 71271767, 0264008 ####[address] [address] MCV (RBC) [Entitic vol] 93.0 fL Normal 80.0-100.0 [facility] Comment on above: Performed By: #### 2 622355, 7487822, 292812722, 87759506, 06387302, 4903087, 71832829, 2914649 ####[place] [address] [place] [address] Monocytes (Bld) [#/Vol] 0.8 E9/L Normal 0.2-1.0 [facility] Comment on above: Performed By: #### 2 566584, 3724895, 952507540, 03620727, 99990955, 5194378, 48893860, 3863556 ####[address] [address] Neutrophils (Bld) [#/Vol] 4.1 E9/L Normal 2.0-7.5 [facility] Comment on above: Performed By: #### 2 949565, 9058009, 745093632, 36311518, 06666212, 1800550, 00336129, 5368499 ####[address] [address] Neutrophils/100 WBC (Bld) 56.6 % Normal 36.0-75.0 [facility] Comment on above: Performed By: #### 2 044595, 6344212, 023305504, 42959676, 14333464, 8999035, 59249306, 1746713 ####[address] [address] Platelet mean volume (Bld) [Entitic vol] 8.6 fL Normal 6.4-10.8 [facility] Comment on above: Performed By: #### 2 935257, 3468184, 828082888, 00752699, 20229973, 8026740, 73513440, 0580873 ####[place] [address] [place] [address] Platelets (Bld) [#/Vol] 193.0 E9/L Normal 150.0-500.0 [facility] Comment on above: Performed By: #### 2 794237, 2156586, 131144842, 14566698, 07156808, 6955886, 66414649, 7268998 ####[facility] [address] [place] [address] RBC (Bld) [#/Vol] 4.5 E12/L Normal 4.3-5.9 [facility] Comment on above: Performed By: #### 2 608055, 7974511, 603186138, 59420347, 15779893, 6947079, 86470935, 9586467 ####[facility] [address] [place] [address] WBC corrected for nucl RBC Auto (Bld) [#/Vol] 7.3 E9/L Normal 4.0-11.0 [facility] Comment on above: Performed By: #### 2 551372, 8846236, 771620415, 93527111, 25220993, 6837002, 97275089, 0408573 ####[facility] [address] [place] [address] CHEMISTRYOrdered By: SYSTEM SYSTEM on 06-23-2023 Albumin [...] for this result was chemiluminescence using Erika Query[employer]'s Access Hybritech PSA reagent. Protein [Mass/Vol] 7.4 [...] (Bld) [Mass fraction] 10.0 % High <=5.9% [facility] ChemAutoSS CMPon 06-23-2023 Albumin [Mass/Vol] 4.3 g/dL Normal 3.3-5.0 [facility] Comment on above: Performed By: #### 2 497429, 3632242, 150063986, 10459532, 15143310, 8000125, 72188985, 3791732 ####[facility] [address] [place] [address] Albumin/Globulin (S) [Mass conc ratio] 1.4 Normal 1.1-2.2 [facility] Comment on above: Performed By: #### 2 698018, 9226674, 869782892, 95746267, 71071892, 2346066, 91687088, 7837189 ####[facility] [address] [place] [address] ALP [Catalytic activity/Vol] 97 Int._Unit/L Normal 21-98 [facility] Comment on above: Performed By: #### 2 738117, 0167582, 992455186, 68341840, 04709602, 7415753, 66860944, 3416051 ####[facility] [address] [place] [address] ALT No additional P-5'-P [Catalytic activity/Vol] 17 Int._Unit/L Normal 6-46 [facility] Comment on above: Performed By: #### 2 810194, 3776197, 580957292, 90258259, 28774087, 4428522, 76490688, 5167117 ####[facility] [address] [place] [address] AST [Catalytic activity/Vol] 17 Int._Unit/L Normal 5-43 [facility] Comment on above: Performed By: #### 2 907805, 4604208, 893824662, 68822599, 59682439, 4108284, 19063488, 1927860 ####[facility] [address] [place] [address] Bilirubin [Mass/Vol] 0.7 mg/dL Normal 0.0-1.1 [facility] Comment on above: Performed By: #### 2 992985, 1229889, 656913835, 55853702, 20687731, 8901046, 23469027, 1375857 ####[facility] [address] [place] [address] Globulin (S) [Mass/Vol] 3.1 g/dL Normal 1.4-4.0 [facility] Comment on above: Performed By: #### 2 828221, 5538842, 598391739, 66409634, 15018253, 0643704, 17113474, 0231722 ####[facility] [address] [place] [address] Protein [Mass/Vol] 7.4 g/dL Normal 6.0-7.8 [facility] Comment on above: Performed By: #### 2 648163, 2795990, 191987397, 84308731, 69562097, 8554102, 26500159, 1253493 ####[facility] [address] [place] [address] Anion gap [Moles/Vol] 15 mmol/L Normal 6-16 [facility] Comment on above: Performed By: #### 2 911616, 5699570, 323326752, 30478513, 34088193, 8689043, 41513777, 1923418 ####[facility] [address] [place] [address] Calcium [Mass/Vol] 9.7 mg/dL Normal 8.9-11.1 [facility] Comment on above: Performed By: #### 2 893981, 1272327, 193725227, 53993757, 49736336, 0006629, 56164406, 7352023 ####[facility] [address] [place] [address] Chloride [Moles/Vol] 104 mmol/L Normal 101-111 [facility] Comment on above: Performed By: #### 2 332334, 0749820, 144442068, 57413832, 14240522, 7904286, 14052248, 2328531 ####[facility] [address] [place] [address] CO2 [Moles/Vol] 23 mmol/L Normal 21-31 [facility] Comment on above: Performed By: #### 2 066556, 1788124, 552041642, 90436684, 31167026, 9612609, 52766106, 6021221 ####[facility] [address] [place] [address] Creatinine [Mass/Vol] 1.4 mg/dL High 0.5-1.3 [facility] Comment on above: Performed By: #### 2 478059, 4702489, 668113821, 51531276, 75146912, 0937058, 97686927, 7249172 ####[facility] [address] [place] [address] Glucose [Mass/Vol] 217 mg/dL High 55-199 [facility] Comment on above: Performed By: #### 2 772098, 1611434, 938000117, 59521211, 17809169, 0702282, 05433790, 6902864 ####[facility] [address] [place] [address] Potassium [Moles/Vol] 4.7 mmol/L Normal 3.5-5.3 [facility] Comment on above: Performed By: #### 2 313679, 6153982, 902849028, 09177096, 90564973, 7028738, 62644237, 4376991 ####[facility] [address] [place] [address] Sodium [Moles/Vol] 137 mmol/L Normal 135-145 [facility] Comment on above: Performed By: #### 2 810422, 1075879, 245427659, 70879731, 26764240, 3290652, 86645127, 3915787 ####[facility] [address] [place] [address] Urea nitrogen [Mass/Vol] 33 mg/dL High 5-21 [facility] Comment on above: Performed By: #### 2 892156, 9451676, 476023989, 11616361, 71864090, 6265648, 80809777, 4643621 ####[facility] [address] [place] [address] Urea nitrogen/Creatinine [Mass ratio] 24 No Units High 10-20 [facility] Comment on above: Performed By: #### 2 693407, 8163024, 223714499, 84606470, 43087311, 9965824, 00989156, 9709609 ####[facility] [address] [place] [address] Family Medicine Office/Clini c Noteon 06-23-2023 Family [...] E&M of Est. Patient Moderate 30-39 Min 07783 [facility] [place] Amb[place] Referral [facility] [place] Ambulatory Referral HgbA1c Influenza immunization administered [...] E&M of Est. Patient Moderate 30-39 Min 05175 [facility] [place] Ambulatory Referral [facility] [place] Ambulatory Referral Uric Acid 3. Stage 3a chronic kidney disease (CKD) (N18.31: Chronic kidney disease, stage 3a) - Will recheck today Ordered: Body Mass Index (BMI) documented 3008F CBC w/ Auto Diff Complex E&M Add on G2211 Comprehensive Metabolic Panel Current tobacco non-user 1036F Depression Screening Negative 3352F E&M of Est. Patient Moderate 30-39 Min 07649 [facility] [place] Ambulatory Referral [facility] [place] Ambulatory Referral HgbA1c Influenza immunization administered [...] E&M of Est. Patient Moderate 30-39 Min 54768 [facility] [place] Ambulatory Referral [facility] [place] Ambulatory Referral HgbA1c Influenza immunization administered [...] E&M of Est. Patient Moderate 30-39 Min 95648 [facility] External Ambulatory Referral [facility] External Ambulatory Referral HgbA1c Influenza immunization administered or previously received 4274F Lipid Panel Microalbumin Level Urine Most recent diastolic blood pressure 80-89 mm Hg 3079F Patient s (more content not included)... Normal [facility] Comment on above: Result Comment: Elec tronically Signed By: Ashly HENDRICKS, Shivani Kessler\Date and Time Signed: 06/23/23 08:34 EDT HEMATOLOGYOrdered [...] Normal 4.0 - 11.0 E9/L Remisol Heme [id number] 06-23-2023 HbA1c (Bld) [Mass fraction] 10.0 % High <=5.9 [facility] Comment on above: Performed By: #### 2 968451, 9741643, 737098348, 19832761, 39075915, 1681044, 02923478, 2386879 ####[facility] [address] [place] [address] Lipid Panelon 06-23-2023 VLDL UTC Abnormal 7-40 [facility] Comment on above: Result Comment: 'ELLI BLE TO REPORT. TRIG > 400 mg/dl' Result verified by [employer]. Performed result [facility] (Unable to Calculate) was sent as an Alpha code due the inability to calculate a valid numeric value. Performed By: #### 2 194953, 4654740, 861247284, 51034946, 15071377, 3873470, 64649486, 3239723 ####[facility] [address] [place] [address] Cholesterol [Mass/Vol] 171 mg/dL Normal 120-200 [facility] Comment on above: Performed By: #### 2 006447, 1963634, 790074797, 41547987, 71362239, 9286919, 47245860, 4399623 ####[facility] [address] [place] [address] Cholesterol in HDL [Mass/Vol] 32 mg/dL Invalid Interpretation Code [facility] Comment on above: Result Comment: '>= 60 LOW RISK' '<= 40 HIGH RISK' Performed By: #### 2 579987, 9544729, [id number], [id number], [id number], [id number], [id number], [id number] ####[facility] [address] [place] [address] Cholesterol in LDL [Mass/Vol] 73 mg/dL Normal <=129 [facility] Comment on above: Performed By: #### 2 [id number], [id number], [id number], [id number], [id number], [id number], [id number], [id number] ####[facility] [address] [place] [address] Triglyceride [Mass/Vol] 431 mg/dL High <=149 [facility] Comment on above: Performed By: #### 2 [id number], [id number], [id number], [id number], [id number], 0007362, 34732064, [id number] ####[facility] [address] [place] [address] PSA Screen, Totalon 06-23-19 24 Prostate specific Ag [Mass/Vol] 3.5 ng/mL Normal 0.1-3.5 [facility] Comment on above: Result Comment: The concentration of PSA determined by different manufacturers can vary due to differences in assay methods and reagent specificity. Values obtained from different assay methods cannot be used interchangeably. The methodology used for this result was chemiluminescence using [employer]'s Access Hybritech PSA reagent. Performed By: #### 2 [id number], [id number], [id number], [id number], [id number], 4758429, [id number], [id number] ####[facility] [address] [place] [address] Patient Educationon 06-23-19 24 Patient Education Nutrition [...] for Disease Control and Prevention: www.cdc.gov ? [place] Heart Association: www.heart.org ? National Heart, Lung, and Blood [place]on: www.nhlbi.nih.gov Summary ? Body mass index (BMI) [...] provider. Document Revised: 10/31/2019 Document Reviewed: 09/07/2019 [employer] Patient Education ? 2022 [employer]. Normal [facility] Physician Referralon 024 Physician Referral [id number] 4#1.00TIFF Normal [facility] Physician Referral [id number] 2#1.00TIFF Normal [facility] TSH With T4fr Reflexon 06-22 TSH Qn 2.61 m[IU]/L Normal 0.34-5.60 [facility] Comment on above: Performed By: #### 2 [id number], [id number], [id number], [id number], [id number], [id number], [id number], [id number] ####[facility] [address] [place] [address] U Microalbon 06-23-2023 Albumin DL <= 20 mg/L (U) [Mass/Vol] 15.0 mg/dL High 0.0-1.9 [facility] Comment on above: Order Comment: Jasmine barbour office Performed By: #### 1 [id number], [id number] ####[facility] [address] [place] [address] U Protein/Creat Ratioon Protein/Creatinine (U) [Ratio] 37.90 mg/gm Cr Normal .00-200.00 [facility] Comment on above: Performed By: #### 1 [id number], [id number] ####[facility] [address] [place] [address] U Creatinine 82.0 mg/dL Invalid Interpretation Code [facility] Comment on above: Performed By: #### 1 [id number], [id number] ####[facility] [address] [place] [address] Ur Total Protein 31.1 mg/dL Invalid Interpretation Code [facility] Comment on above: Performed By: #### 1 [id number], [id number] ####[address] [address] Uric Acidon 06-23-2023 Urate (U) [Mass/Vol] 4.6 mg/dL Normal 2.2-7.4 [facility] Comment on above: Performed By: #### 2 804311, 8402792, [id number], [id number], 35160437, 4724518, 07942691, [id number] ####[facility] [address] [place] [address] eGFRon 06-23-2023 eGFR 54 mL/min/1.73 m2 Low >=59 [facility] Comment on above: Order Comment: Order added by Discern Expert. Performed By: #### 2 048960, 7898306, [id number], 54754787, 17879663, 9654017, 07493704, 2647687 ####[facility] [address] [place] [address] Lab Reportson 04-26-2023 Lab Reports [id number] #1.00TIFF Normal [facility] CHEMISTRYOrdered By: Ro davidson on 12-01-2022 Albumin DL <= 20 mg/L (U) [Mass/Vol] 101.6 microgram/mL High 0.0 - 19.0 mcg/mL [facility] Albumin Elph (U) [Mass fraction] 19.4 mg/dL Invalid Interpretation Code [facility] Comment on above: Interpretive Data: T he reference range and other method performance specifications have not been established for this test; results should be integrated into the clinical context for interpretation. Creatinine (U) [Mass/Vol] 135.6 mg/dL Invalid Interpretation Code [facility] Comment on above: Interpretive Data: T he reference range and other method performance specifications have not been established for this test; results should be integrated into the clinical context for interpretation. U Prot/Creat Ratio 143.10 mg/gm Cr Normal 0.00 - 200.00 mg/gm Cr [facility]isol CBC AUTO DIFFon 06-07-2022 BASO # 0.0 103/ul Normal 0.0-0.1 [facility] Comment on above: Performed By: #### C BC #### [facility] [address] [place] [address] Dr. Emiliano Sheehan Basophils/100 WBC (Bld) 0.6 % Normal 0.2-2.0 [facility] Comment on above: Performed By: #### C BC #### [facility] [address] [place] [address] Dr. Emiliano Sheehan EO # 0.5 103/ul Normal 0.0-0.7 [facility] Comment on above: Performed By: #### C BC #### [facility] [address] [place] [address] Dr. Emiliano Sheehan Eosinophils/100 WBC (Bld) 7.6 % Critically high 0.9-7.0 [facility] Comment on above: Performed By: #### C BC #### [facility] [address] [place] [address] Dr. Emiliano Sheehan Erythrocyte distribution width (RBC) [Ratio] 12.3 % Normal 11.0-15.0 [facility] Comment on above: Performed By: #### C BC #### [facility] [address] [place] [address] Dr. Emiliano Sheehan Hematocrit (Bld) [Volume fraction] 40.1 % Critically low 42.0-54.0 [facility] Comment on above: Performed By: #### C BC #### [facility] [address] [place] [address] Dr. Emiliano Sheehan Hemoglobin (Bld) [Mass/Vol] 13.4 g/dL Critically low 14.0-18.0 [facility] Comment on above: Performed By: #### C BC #### [facility] [address] [place] [address] Dr. Emiliano Sheehan IG # 0.03 10e3/ul Normal 0.00-0.03 [facility] Comment on above: Performed By: #### C BC #### [facility] [address] [place] [address] Dr. Emiliano Sheehan IG % 0.5 % Normal 0.0-0.5 [facility] Comment on above: Performed By: #### C BC #### [facility] [address] [place] [address] Dr. Emiliano Sheehan LYMPH # 1.9 103/ul Normal 1.2-3.8 [facility] Comment on above: Performed By: #### C BC #### [facility] [address] [place] [address] Dr. Emiliano Sheehan Lymphocytes/100 WBC (Bld) 29.5 % Normal 20.5-60.0 [facility] Comment on above: Performed By: #### C BC #### [facility] [address] [place] [address] Dr. Emiliano Sheehan MANUAL DIFF REQ NO Normal [facility] Comment on above: Performed By: #### C BC #### [facility] [address] [place] [address] Dr. Emiliano Sheehan MCH (RBC) [Entitic mass] 30.4 pg Normal 25.9-34.0 [facility] Comment on above: Performed By: #### C BC #### [facility] [address] [place] [address] Dr. Emiliano Sheehan MCHC (RBC) [Mass/Vol] 33.4 g/dL Normal 29.9-35.2 [facility] Comment on above: Performed By: #### C BC #### [facility] [address] [place] [address] Dr. Emiliano Sheehan MCV (RBC) [Entitic vol] 90.9 fL Normal 80.0-94.0 [facility] Comment on above: Performed By: #### C BC #### [facility] [address] [place] [address] Dr. Emiliano Sheehan MONO # 0.6 103/ul Normal 0.3-0.8 [facility] Comment on above: Performed By: #### C BC #### [facility] [address] [place] [address] Dr. Emiliano Sheehan Monocytes/100 WBC (Bld) 9.6 % Normal 1.7-12.0 [facility] Comment on above: Performed By: #### C BC #### [facility] [address] [place] [address] Dr. Emiliano Sheehan NEUT # 3.4 103/ul Normal 1.4-6.5 [facility] Comment on above: Performed By: #### C BC #### [facility] [address] [place] [address] Dr. Emiliano Sheehan Neutrophils/100 WBC (Bld) 52.2 % Normal 43.0-75.0 [facility] Comment on above: Performed By: #### C BC #### [facility] [address] [place] [address] Dr. Emiliano Sheehan Platelet mean volume (Bld) [Entitic vol] 9.0 fL Critically low 9.5-13.5 [facility] Comment on above: Performed By: #### C BC #### [facility] [address] [place] [address] Dr. Emiliano Sheehan PLT 205 103/ul Normal 150-450 [facility] Comment on above: Performed By: #### C BC #### [facility] [address] [place] [address] Dr. Emiliano Sheehan RBC 4.41 106/ul Critically low 4.70-6.10 [facility] Comment on above: Performed By: #### C BC #### [facility] [address] [place] [address] Dr. Emiliano Sheehan WBC 6.5 103/ul Normal 4.0-11.0 [facility] Comment on above: Performed By: #### C BC #### [facility] [address] [place] [address] Dr. Emiliano Sheehan FREE T3on 06-07-2022 FREE T3 2.37 pg/mlL Normal 2.18-3.98 [facility] Comment on above: Performed By: #### P SARIAH, FT4 #### [facility] [address] [place] [address] Dr. Emiliano Sheehan FREE T4on 06-07-2022 Free T4 [Mass/Vol] 1.37 ng/dL Normal 0.76-1.46 [facility] Comment on above: Performed By: #### P SARIAH, FT4 #### [facility] [address] [place] [address] Dr. Emiliano Sheehan GLYCOHEMOGLOBIN A1Con 2022 ADA RECOMMENDATION SEE BELOW Normal [facility] Comment on above: Result Comment: ADA RECOMMENDED LIMIT 4.0 - 6.0 ADA THERAPEUTIC TARGET < 7.0 ACTION SUGGESTED > 7.0 Performed By: #### P SAD, FT4 #### [facility] [address] [place] [address] Dr. Emiliano Sheehan Glucose [Mass/Vol] 206 mg/dL Normal [facility] Comment on above: Performed By: #### P SARIAH, FT4 #### [facility] [address] [address] [address] Emiliano Sheehan HbA1c (Bld) [Mass fraction] 8.8 % Critically high 4.5-6.2 [facility] Comment on above: Performed By: #### P SAD, FT4 #### [facility] [address] [place] [address] Dr. Emiliano Sheehan LIPID PROFILEon 06-07-2022 CHOL-HDL RATIO NORM SEE BELOW Normal [facility] Comment on above: Result Comment: 3.3 - 4.4 LOW RISK 4.4 - 7.1 AVERAGE RISK 7.1 - 11.0 MODERATE RISK >11.0 HIGH RISK Performed By: #### P SAD, FT4 #### [facility] [address] [place] [address] Dr. Emiliano Sheehan Cholesterol [Mass/Vol] 169 mg/dL Normal <=200 Th [facility] Comment on above: Performed By: #### P SAD, FT4 #### [facility] [address] [place] [address] Dr. Emiliano Sheehan Cholesterol in HDL [Mass/Vol] 37 mg/dL Critically low 40-60 [facility] Comment on above: Performed By: #### P SAD, FT4 #### [facility] [address] [place] [address] Dr. Emiliano Sheehan Cholesterol in LDL [Mass/Vol] 69.4 mg/dL Normal [facility] Comment on above: Performed By: #### P SAD, FT4 #### [facility] [address] [place] [address] Dr. Emiliano Sheehan Cholesterol.total/Chol esterol in HDL [Mass ratio] 4.6 {ratio} Normal [facility] Comment on above: Performed By: #### P SAD, FT4 #### [facility] [address] [place] [address] Dr. Emiliano Sheehan HDL NORMAL > or = 60 mg/dl - LOW CARDIOVASCULAR RISK <40 mg/dl - HIGH CARDIOVASCULAR RISK Normal [facility] Comment on above: Performed By: #### P SAD, FT4 #### [facility] [address] [address] [address] Emiliano Sheehan LDL CALC NORMAL SEE BELOW Normal [facility] Comment on above: Result Comment: <100 mg/dl OPTIMAL 100 - 129 mg/dl NEAR OR ABOVE OPTIMAL 130 - 159 mg/dl BORDERLINE HIGH 160 - 189 mg/dl HIGH >190 mg/dl VERY HIGH Performed By: #### P SAD, FT4 #### [facility] [address] [address] [address] Emiliano Sheehan Triglyceride [Mass/Vol] 313 mg/dL Critically high <=150 [facility] Comment on above: Performed By: #### P SAD, FT4 #### [facility] [address] [address] [address] Emiliano Sheehan VLDL CALC 62.6 mg/dL Normal [facility] Comment on above: Performed By: #### P SAD, FT4 #### [facility] [address] [place] [address] Dr. Emiliano Sheehan PROF 14(COMP METB)on 023 Albumin [Mass/Vol] 4.0 g/dL Normal 3.4-5.0 [facility] Comment on above: Performed By: #### L IPID, CMP, FT3, URIC #### [facility] [address] [place] [address] Dr. Emiliano Sheehan Albumin/Globulin [Mass ratio] 1.1 {ratio} Normal [facility] Comment on above: Performed By: #### L IPID, CMP, FT3, URIC #### [facility] [address] [place] [address] Dr. Emiliano Sheehan ALP [Catalytic activity/Vol] 86 U/L Normal 46-116 [facility] Comment on above: Performed By: #### L IPID, CMP, FT3, URIC #### [facility] [address] [place] [address] Dr. Emiliano Sheehan ALT [Catalytic activity/Vol] 35 U/L Normal 16-63 [facility] Comment on above: Performed By: #### L IPID, CMP, FT3, URIC #### [facility] [address] [place] [address] Dr. Emiliano Sheehan Anion gap [Moles/Vol] 12.9 mmol/L Normal Th e [facility] Comment on above: Performed By: #### L IPID, CMP, FT3, URIC #### [facility] [address] [address] [address] Emiliano Sheehan AST [Catalytic activity/Vol] 17 U/L Normal 15-37 [facility] Comment on above: Performed By: #### L IPID, CMP, FT3, URIC #### [facility] [address] [address] [address] Emiliano Sheehan Bilirubin [Mass/Vol] 0.4 mg/dL Normal 0.2-1.0 [facility] Comment on above: Performed By: #### L IPID, CMP, FT3, URIC #### [facility] [address] [place] [address] Dr. Emiliano Sheehan Calcium [Mass/Vol] 9.1 mg/dL Normal 8.5-10.1 [facility] Comment on above: Performed By: #### L IPID, CMP, FT3, URIC #### [facility] [address] [address] [address] Emiliano Sheehan Chloride [Moles/Vol] 103 mmol/L Normal 98-107 [facility] Comment on above: Performed By: #### L IPID, CMP, FT3, URIC #### [facility] [address] [place] [address] Dr. Emiliano Sheehan CO2 [Moles/Vol] 25.6 mmol/L Normal 21.0-32.0 [facility] Comment on above: Performed By: #### L IPID, CMP, FT3, URIC #### [facility] [address] [address] [address] Emiliano Sheehan Creatinine [Mass/Vol] 1.28 mg/dL Normal 0.70-1.30 [facility] Comment on above: Performed By: #### L IPID, CMP, FT3, URIC #### [facility] [address] [address] [address] Emiliano Sheehan EGFR-AF GUYANESE >60 Normal >=60 [facility] Comment on above: Performed By: #### L IPID, CMP, FT3, URIC #### [facility] [address] [place] [address] Dr. Emiliano Sheehan EGFR-NON AF GUYANESE 56 mL/min/1.73m2 Critically low >=60 [facility] Comment on above: Performed By: #### L IPID, CMP, FT3, URIC #### [facility] [address] [place] [address] Dr. Emiliano Sheehan Globulin (S) [Mass/Vol] 3.7 g/dL Normal [facility] Comment on above: Performed By: #### L IPID, CMP, FT3, URIC #### [facility] [address] [place] [address] Dr. Emiliano Sheehan Glucose [Mass/Vol] 210 mg/dL Critically high 74-106 T [facility] Comment on above: Performed By: #### L IPID, CMP, FT3, URIC #### [facility] [address] [place] [address] Dr. Emiliano Sheehan Potassium [Moles/Vol] 4.5 mmol/L Normal 3.5-5.1 [facility] Comment on above: Performed By: #### L IPID, CMP, FT3, URIC #### [facility] [address] [place] [address] Dr. Emiliano Sheeahn Protein [Mass/Vol] 7.7 g/dL Normal 6.4-8.2 [facility] Comment on above: Performed By: #### L IPID, CMP, FT3, URIC #### [facility] [address] [place] [address] Dr. Emiliano Sheehan Sodium [Moles/Vol] 137 mmol/L Normal 136-145 [facility] Comment on above: Performed By: #### L IPID, CMP, FT3, URIC #### [facility] [address] [place] [address] Dr. Emiliano Sheehan Urea nitrogen [Mass/Vol] 19.0 mg/dL Critically high 7.0-18.0 [facility] Comment on above: Performed By: #### L IPID, CMP, FT3, URIC #### [facility] [address] [place] [address] Dr. Emiliano Sheehan Urea nitrogen/Creatinine [Mass ratio] 14.8 mg/mg Normal [facility] Comment on above: Performed By: #### L IPID, CMP, FT3, URIC #### [facility] [address] [place] [address] Dr. Emiliano Sheehan URIC ACID SERUMon 06-07-2022 Urate [Mass/Vol] 3.5 mg/dL Normal 3.5-7.2 [facility] Comment on above: Performed By: #### P SAD, FT4 #### [facility] [address] [place] [address] Dr. Emiliano Sheehan FREE T3on 02-11-2022 FREE T3 2.33 pg/mlL Normal 2.18-3.98 [facility] Comment on above: Performed By: #### P SAD, FT4 #### [facility] [address] [place] [address] Dr. Emiliano Sheehan FREE T4on 02-11-2022 Free T4 [Mass/Vol] 1.20 ng/dL Normal 0.76-1.46 [facility] Comment on above: Performed By: #### F T4 #### [facility] [address] [place] [address] Dr. Emiliano Sheehan TSHon 02-11-2022 TSH 2.124 uIU/mL Normal 0.358-3.740 [facility] Comment on above: Performed By: #### P SAD, FT4 #### [facility] [address] [place] [address] Dr. Emiliano Sheehan POINT OF CARE GLUCOSEon Glucose [Mass/Vol] 205 mg/dL Critically high 74-106 T [facility] Comment on above: Performed By: #### P SAD, FT4 #### [facility] [address] [place] [address] Dr. Emiliano Sheehan Covid-19 PCR (CVDTB)on SARS-CoV-2 (COVID-19) RNA LUIS+probe Ql (Unsp spec) Not detected Normal NOT DETECTED [facility] Comment on above: Result Comment: This test is not yet approved or cleared by the [place] FDA. When there are no FDA-approved or cleared tests available, and other criteria are met, FDA can make tests available under an emergency access mechanism called an Emergency Use Authorization (EUA). The EUA for this test is supported by the [place] of Health and Human Service's (HHS's) declaration [...] SARS-CoV-2. Performed By: #### C VDTBH #### [facility] [address] [place] [address] Dr. Emiliano Sheehan GLYCOHEMOGLOBIN A1Con 2021 ADA RECOMMENDATION SEE BELOW Normal [facility] Comment on above: Result Comment: ADA RECOMMENDED LIMIT 4.0 - 6.0 ADA THERAPEUTIC TARGET < 7.0 ACTION SUGGESTED > 7.0 Performed By: #### P SAD, FT4 #### [facility] [address] [place] [address] Dr. Emiliano Sheehan Glucose [Mass/Vol] 177 mg/dL Normal [facility] Comment on above: Performed By: #### P SAD, FT4 #### [facility] [address] [place] [address] Dr. Emiliano Sheehan HbA1c (Bld) [Mass fraction] 7.8 % Critically high 4.5-6.2 [facility] Comment on above: Performed By: #### P SAD, FT4 #### [facility] [address] [place] [address] Dr. Emiliano Sheehan CBC AUTO DIFFon 12-01-2021 BASO # 0.0 103/ul Normal 0.0-0.1 [facility] Comment on above: Performed By: #### P SAD, FT4 #### [facility] [address] [place] [address] Dr. Emiliano Sheehan Basophils/100 WBC (Bld) 0.5 % Normal 0.2-2.0 [facility] Comment on above: Performed By: #### P SAD, FT4 #### [facility] [address] [place] [address] Dr. Emiliano Sheehan EO # 0.5 103/ul Normal 0.0-0.7 [facility] Comment on above: Performed By: #### P SAD, FT4 #### [facility] [address] [place] [address] Dr. Emiliano Sheehan Eosinophils/100 WBC (Bld) 5.7 % Normal 0.9-7.0 [facility] Comment on above: Performed By: #### P SARIAH, FT4 #### [facility] [address] [place] [address] Dr. Emiliano Sheehan Erythrocyte distribution width (RBC) [Ratio] 12.8 % Normal 11.0-15.0 [facility] Comment on above: Performed By: #### P SARIAH, FT4 #### [facility] [address] [place] [address] Dr. Emiliano Sheehan Hematocrit (Bld) [Volume fraction] 39.5 % Critically low 42.0-54.0 [facility] Comment on above: Performed By: #### P SAD, FT4 #### [facility] [address] [place] [address] Dr. Emiliano Sheehan Hemoglobin (Bld) [Mass/Vol] 12.9 g/dL Critically low 14.0-18.0 [facility] Comment on above: Performed By: #### P SAD, FT4 #### [facility] [address] [place] [address] Dr. Emiliano Sheehan IG # 0.03 10e3/ul Normal 0.00-0.03 [facility] Comment on above: Performed By: #### P SAD, FT4 #### [facility] [address] [address] [address] Emiliano Sheehan IG % 0.3 % Normal 0.0-0.5 [facility] Comment on above: Performed By: #### P SARIAH, FT4 #### [facility] [address] [place] [address] Dr. Emiliano Sheehan LYMPH # 2.3 103/ul Normal 1.2-3.8 [facility] Comment on above: Performed By: #### P SARIAH, FT4 #### [facility] [address] [place] [address] Dr. Emiliano Sheehan Lymphocytes/100 WBC (Bld) 26.7 % Normal 20.5-60.0 [facility] Comment on above: Performed By: #### P SARIAH, FT4 #### [facility] [address] [place] [address] Dr. Emiliano Sheehan MANUAL DIFF REQ NO Normal [facility] Comment on above: Performed By: #### P SARIAH, FT4 #### [facility] [address] [place] [address] Dr. Emiliano Sheehan MCH (RBC) [Entitic mass] 31.2 pg Normal 25.9-34.0 [facility] Comment on above: Performed By: #### P SARIAH, FT4 #### [facility] [address] [place] [address] Dr. Emiliano Sheehan MCHC (RBC) [Mass/Vol] 32.7 g/dL Normal 29.9-35.2 [facility] Comment on above: Performed By: #### P SARIAH, FT4 #### [facility] [address] [place] [address] Dr. Emiliano Sheehan MCV (RBC) [Entitic vol] 95.6 fL Critically high 80.0-94.0 [facility] Comment on above: Performed By: #### P SARIAH, FT4 #### [facility] [address] [place] [address] Dr. Emiliano Sheehan MONO # 0.8 103/ul Normal 0.3-0.8 [facility] Comment on above: Performed By: #### P SARIAH, FT4 #### [facility] [address] [place] [address] Dr. Emiliano Sheehan Monocytes/100 WBC (Bld) 9.4 % Normal 1.7-12.0 [facility] Comment on above: Performed By: #### P SAD, FT4 #### [facility] [address] [place] [address] Dr. Emiliano Sheehan NEUT # 4.9 103/ul Normal 1.4-6.5 [facility] Comment on above: Performed By: #### P SAD, FT4 #### [facility] [address] [place] [address] Dr. Emiliano Sheehan Neutrophils/100 WBC (Bld) 57.4 % Normal 43.0-75.0 [facility] Comment on above: Performed By: #### P SAD, FT4 #### [facility] [address] [place] [address] Dr. Emiliano Sheehan Platelet mean volume (Bld) [Entitic vol] 8.8 fL Critically low 9.5-13.5 [facility] Comment on above: Performed By: #### P SAD, FT4 #### [facility] [address] [place] [address] Dr. Emiliano Sheehan PLT 210 103/ul Normal 150-450 [facility] Comment on above: Performed By: #### P SAD, FT4 #### [facility] [address] [place] [address] Dr. Emiliano Sheehan RBC 4.13 106/ul Critically low 4.70-6.10 [facility] Comment on above: Performed By: #### P SAD, FT4 #### [facility] [address] [place] [address] Dr. Emiliano Sheehan WBC 8.6 103/ul Normal 4.0-11.0 [facility] Comment on above: Performed By: #### P SAD, FT4 #### [facility] [address] [place] [address] Dr. Emiliano Sheehan FREE T3on 12-01-2021 FREE T3 2.20 pg/mlL Normal 2.18-3.98 [facility] Comment on above: Performed By: #### T SH, FT3, LIPID, CMP #### [facility] [address] [address] [address] Emiliano Sheehan FREE T4on 12-01-2021 Free T4 [Mass/Vol] 1.11 ng/dL Normal 0.76-1.46 [facility] Comment on above: Performed By: #### P SAD, FT4 #### [facility] [address] [address] [address] Emiliano Sheehan LIPID PROFILEon 12-01-2021 CHOL-HDL RATIO NORM SEE BELOW Normal [facility] Comment on above: Result Comment: 3.3 - 4.4 LOW RISK 4.4 - 7.1 AVERAGE RISK 7.1 - 11.0 MODERATE RISK >11.0 HIGH RISK Performed By: #### T SH, FT3, LIPID, CMP #### [facility] [address] [place] [address] Dr. Emiliano Sheehan Cholesterol [Mass/Vol] 146 mg/dL Normal <=200 Th [facility] Comment on above: Performed By: #### T SH, FT3, LIPID, CMP #### [facility] [address] [place] [address] Dr. Emiliano Sheehan Cholesterol in HDL [Mass/Vol] 41 mg/dL Normal 40-60 [facility] Comment on above: Performed By: #### T SH, FT3, LIPID, CMP #### [facility] [address] [place] [address] Dr. Emiliano Sheehan Cholesterol in LDL [Mass/Vol] 59.8 mg/dL Normal [facility] Comment on above: Performed By: #### T SH, FT3, LIPID, CMP #### [facility] [address] [place] [address] Dr. Emiliano Sheehan Cholesterol.total/Chol esterol in HDL [Mass ratio] 3.6 {ratio} Normal [facility] Comment on above: Performed By: #### T SH, FT3, LIPID, CMP #### [facility] [address] [place] [address] Dr. Emiliano Sheehan HDL NORMAL > or = 60 mg/dl - LOW CARDIOVASCULAR RISK <40 mg/dl - HIGH CARDIOVASCULAR RISK Normal [facility] Comment on above: Performed By: #### T SH, FT3, LIPID, CMP #### [facility] [address] [place] [address] Dr. Emiliano Sheehan LDL CALC NORMAL SEE BELOW Normal [facility] Comment on above: Result Comment: <100 mg/dl OPTIMAL 100 - 129 mg/dl NEAR OR ABOVE OPTIMAL 130 - 159 mg/dl BORDERLINE HIGH 160 - 189 mg/dl HIGH >190 mg/dl VERY HIGH Performed By: #### T SH, FT3, LIPID, CMP #### [facility] [address] [address] [address] Emiliano Sheehan Triglyceride [Mass/Vol] 226 mg/dL Critically high <=150 [facility] Comment on above: Performed By: #### T SH, FT3, LIPID, CMP #### [facility] [address] [place] [address] Dr. Emiliano Sheehan VLDL CALC 45.2 mg/dL Normal [facility] Comment on above: Performed By: #### T SH, FT3, LIPID, CMP #### [facility] [address] [place] [address] Dr. Emiliano Sheehan PROF 14(COMP METB)on 022 Albumin [Mass/Vol] 4.2 g/dL Normal 3.4-5.0 [facility] Comment on above: Performed By: #### T SH, FT3, LIPID, CMP #### [facility] [address] [place] [address] Dr. Emiliano Sheehan Albumin/Globulin [Mass ratio] 1.2 {ratio} Normal [facility] Comment on above: Performed By: #### T SH, FT3, LIPID, CMP #### [facility] [address] [place] [address] Dr. Emiliano Sheehan ALP [Catalytic activity/Vol] 82 U/L Normal 46-116 [facility] Comment on above: Performed By: #### T SH, FT3, LIPID, CMP #### [facility] [address] [place] [address] Dr. Emiliano Sheehan ALT [Catalytic activity/Vol] 26 U/L Normal 16-63 [facility] Comment on above: Performed By: #### T SH, FT3, LIPID, CMP #### [facility] [address] [place] [address] Dr. Emiliano Sheehan Anion gap [Moles/Vol] 13.1 mmol/L Normal Th e [facility] Comment on above: Performed By: #### T SH, FT3, LIPID, CMP #### [facility] [address] [place] [address] Dr. Emiliano Sheehan AST [Catalytic activity/Vol] 12 U/L Critically low 15-37 [facility] Comment on above: Performed By: #### T SH, FT3, LIPID, CMP #### [facility] [address] [place] [address] Dr. Emiliano Sheehan Bilirubin [Mass/Vol] 0.8 mg/dL Normal 0.2-1.0 [facility] Comment on above: Performed By: #### T SH, FT3, LIPID, CMP #### [facility] [address] [place] [address] Dr. Emiliano Sheehan Calcium [Mass/Vol] 9.2 mg/dL Normal 8.5-10.1 [facility] Comment on above: Performed By: #### T SH, FT3, LIPID, CMP #### [facility] [address] [place] [address] Dr. Emiliano Sheehan Chloride [Moles/Vol] 103 mmol/L Normal 98-107 [facility] Comment on above: Performed By: #### T SH, FT3, LIPID, CMP #### [facility] [address] [place] [address] Dr. Emiliano Sheehan CO2 [Moles/Vol] 27.2 mmol/L Normal 21.0-32.0 [facility] Comment on above: Performed By: #### T SH, FT3, LIPID, CMP #### [facility] [address] [place] [address] Dr. Emiliano Sheehan Creatinine [Mass/Vol] 1.22 mg/dL Normal 0.70-1.30 [facility] Comment on above: Performed By: #### T SH, FT3, LIPID, CMP #### [facility] [address] [place] [address] Dr. Emiliano Sheeahn EGFR-AF GUYANESE >60 Normal >=60 [facility] Comment on above: Performed By: #### T SH, FT3, LIPID, CMP #### [facility] [address] [place] [address] Dr. Emiliano Sheehan EGFR-NON AF GUYANESE 59 mL/min/1.73m2 Critically low >=60 [facility] Comment on above: Performed By: #### T SH, FT3, LIPID, CMP #### [facility] [address] [place] [address] Dr. Emiliano Sheehan Globulin (S) [Mass/Vol] 3.5 g/dL Normal [facility] Comment on above: Performed By: #### T SH, FT3, LIPID, CMP #### [facility] [address] [place] [address] Dr. Emiliano Sheehan Glucose [Mass/Vol] 159 mg/dL Critically high 74-106 [facility] Comment on above: Performed By: #### T SH, FT3, LIPID, CMP #### [facility] [address] [place] [address] Dr. Emiliano Sheehan Potassium [Moles/Vol] 4.3 mmol/L Normal 3.5-5.1 [facility] Comment on above: Performed By: #### T SH, FT3, LIPID, CMP #### [facility] [address] [place] [address] Dr. Emiliano Sheehan Protein [Mass/Vol] 7.7 g/dL Normal 6.4-8.2 [facility] Comment on above: Performed By: #### T SH, FT3, LIPID, CMP #### [facility] [address] [place] [address] Dr. Emiliano Sheehan Sodium [Moles/Vol] 139 mmol/L Normal 136-145 [facility] Comment on above: Performed By: #### T SH, FT3, LIPID, CMP #### [facility] [address] [place] [address] Dr. Emiliano Sheehan Urea nitrogen [Mass/Vol] 19.0 mg/dL Critically high 7.0-18.0 [facility] Comment on above: Performed By: #### T SH, FT3, LIPID, CMP #### [facility] [address] [address] [address] Emiliano Sheehan Urea nitrogen/Creatinine [Mass ratio] 15.6 mg/mg Normal [facility] Comment on above: Performed By: #### T SH, FT3, LIPID, CMP #### [facility] [address] [address] [address] Emiliano Sheehan TSHon 12-01-2021 TSH 4.588 uIU/mL Critically high 0.358-3.740 [facility] Comment on above: Performed By: #### T SH, FT3, LIPID, CMP #### [facility] [address] [address] [address] Emiliano Sheehan Vital Signs Date Time Vital Sign Value Performing Clinician Facility 12-27-2023 13:07-0500 Hourly Rounding Jose Szclydeki [facility] 12-27-2023 13:07-0500 Promise to Return Jose Szynkowski [facility] 12-27-2023 12:07-0500 Hourly Rounding Jose Szynkowski [facility] 12-27-2023 12:07-0500 Promise to Return Jose Szynkowski [facility] 12-27-2023 11:17-0500 Diastolic blood pressure 84 mm[Hg] Jose Szynkowski [facility] 12-27-2023 11:17-0500 Heart rate 74 /min Jose Szynkowski [facility] 12-27-2023 11:17-0500 Mean blood pressure 105 mm[Hg] Jose Szynkowski [facility] 12-27-2023 11:17-0500 Systolic blood pressure 147 mm[Hg] Jose Szynkowski [facility] 12-27-2023 11:10-0500 Hourly Rounding Jose Szynkowski [facility] 12-27-2023 11:10-0500 Promise to Return Jose Szynkowski [facility] 12-27-2023 11:07-0500 Heart rate 77 /min Jose Szynkowski [facility] 12-27-2023 11:07-0500 SaO2% (BldA) [Mass fraction] 97 % Jose Szynkowski [facility] 12-27-2023 11:07-0500 Diastolic blood pressure 90 mm[Hg] Jose Szynkowski [facility] 12-27-2023 11:07-0500 Mean blood pressure 113 mm[Hg] Jose Szynkowski [facility] 12-27-2023 11:07-0500 Systolic blood pressure 160 mm[Hg] Jose Szynkowski [facility] 12-27-2023 11:06-0500 Body temperature 97.7 [degF] Jose Szynkowski [facility] 12-27-2023 08:17-0500 Diastolic blood pressure 80 mm[Hg] Jose Szynkowski [facility] 12-27-2023 08:17-0500 Heart rate 76 /min Jose Szynkowski [facility] 12-27-2023 08:17-0500 Systolic blood pressure 151 mm[Hg] Jose Lavonynkowski [facility] 12-27-2023 07:29-0500 Heart rate 76 /min Jose Lavonynkowski [facility] 12-27-2023 07:29-0500 SaO2% (BldA) [Mass fraction] 96 % Jose Anishkowski [facility] 12-27-2023 07:26-0500 Mean blood pressure 103 mm[Hg] Joseerick Oconnellkowski [facility] 12-27-2023 07:26-0500 Body temperature 98.06 [degF] Jose Lavonynkowski [facility] 12-27-2023 04:32-0500 Body temperature 97.88 [degF] Joseerick Dollynkowski [facility] 12-27-2023 04:32-0500 Heart rate 77 /min Joseerick Oconnellkowski [facility] 12-27-2023 04:32-0500 Mean blood pressure 110 mm[Hg] Joseerick Oconnellkowski [facility] 12-27-2023 04:32-0500 Respiratory rate 16 /min Joseelan Oconnellkowski [facility] 12-27-2023 04:32-0500 SaO2% (BldA) [Mass fraction] 98 % Joseerick Oconnellkowski [facility] 12-27-2023 00:22-0500 Body temperature 97.88 [degF] Jose Szynkowski [facility] 12-27-2023 00:22-0500 Heart rate 76 /min Jose Szynkowski [facility] 12-27-2023 00:22-0500 Mean blood pressure 97 mm[Hg] Jose Solis [facility] 12-27-2023 00:22-0500 Respiratory rate 16 /min Jose Solis [facility] 12-26-2023 21:53-0500 Blood Pressure Location Jose Solis [facility] 12-26-2023 21:53-0500 Body temperature 98.24 [degF] Jose Solis [facility] 12-26-2023 21:53-0500 Heart rate 79 /min Jose Solis [facility] 12-26-2023 21:00-0500 gluc 154 mg/dL Jose Solis [facility] 12-21-2023 13:34-0400 Body height 170.2 cm Hugo Power DO Work Phone: [facility] 12-21-2023 13:34-0400 Body mass index (BMI) [Ratio] 35.24 kg/m2 Hugo Power DO Work Phone: [facility] 12-21-2023 13:34-0400 Body weight 102.06 kg Hugo Power DO Work Phone: [facility] 12-14-2023 11:05-0400 Body height 170.2 cm Pacc 2 Work Phone: [facility] 12-14-2023 11:05-0400 Body mass index (BMI) [Ratio] 36.81 kg/m2 Pacc 2 Work Phone: [facility] 12-14-2023 11:05-0400 Body weight 106.59 kg Pacc 2 Work Phone: [facility] 11-16-2023 14:36-0400 Body height 170.2 cm Hugo Murcek DO Work Phone: [facility] 11-16-2023 14:36-0400 Body mass index (BMI) [Ratio] 35.24 kg/m2 Hugo Murcek DO Work Phone: [facility] 11-16-2023 14:36-0400 Body weight 102.06 kg Hugo Jacobcek DO Work Phone: [facility] 11-04-2023 14:58-0400 Diastolic blood pressure 75 mm[Hg] MD Shivani Limon Work Phone: [facility] 11-04-2023 14:58-0400 Heart rate 87 /min MD Shivani Limon Work Phone: [facility] 11-04-2023 14:58-0400 Respiratory rate 16 /min MD Shivani Limon Work Phone: [facility] 11-04-2023 14:58-0400 SaO2% (BldA) [Mass fraction] 94 % MD Shivani Limon Work Phone: [facility] 11-04-2023 14:58-0400 Systolic blood pressure 125 mm[Hg] MD Shivani Limon Work Phone: [facility] 11-04-2023 11:31-0400 Body height 167.64 cm MD Shivani Limon Work Phone: [facility] 11-04-2023 11:31-0400 Body temperature 98.7 [degF] MD Shivani Limon Work Phone: [facility] 11-04-2023 11:31-0400 Body weight 104.32 kg MD Shivani Limon Work Phone: [facility] 10-31-2023 14:41-0400 Body height 170.2 cm Hugo Jacobcek DO Work Phone: [facility] 10-31-2023 14:41-0400 Body mass index (BMI) [Ratio] 35.24 kg/m2 Hugo Power DO Work Phone: [facility] 10-31-2023 14:41-0400 Body weight 102.06 kg Hugo Power DO Work Phone: [facility] 01-03-2023 08:28-0500 Blood Pressure Location [facility] 01-03-2023 08:28-0500 Diastolic blood pressure 80 mm[Hg] [facility] 01-03-2023 08:28-0500 Heart rate 70 /min [facility] 01-03-2023 08:28-0500 Respiratory rate 16 /min [facility] 01-03-2023 08:28-0500 SaO2% (BldA) [Mass fraction] 99 % [facility] 01-03-2023 08:28-0500 Systolic blood pressure 132 mm[Hg] [facility] 12-23-2021 15:56-0400 Blood Pressure Location Stephanie JUSTINOL [facility] [place] 12-23-2021 15:56-0400 Diastolic blood pressure 96 mm[Hg] Stephanie NILL [facility] [place] 12-23-2021 15:56-0400 Heart rate 76 /min Stephanie NILL [facility] [place] 12-23-2021 15:56-0400 Respiratory rate 16 /min Stephanie NILL [facility] [place] 12-23-2021 15:56-0400 Systolic blood pressure 132 mm[Hg] Stepahnie NILL [facility] [place] Encounters Encounter Date Encounter Type Care Provider Facility Start: 01-08-2025 ambulatory Shivani Limon Facility :[facility] Start: 06-01-2024 End: 06-01-2024 ambulatory MD Shivani Limon Facility[facility] Start: 06-01-2024 End: 06-01-2024 Patient encounter procedure Shivani Limon [facility] Start: 05-03-2024 End: 05-03-2024 ambulatory MD Shivani Limon Facility:[facility] [place] Start: 04-23-2024 End: 04-23-2024 ambulatory MD [facility]iv[facility] Lim[facility] Start: 02-20-2024 End: 02-20-2024 ambulatory Delmy Weber MD Facility: [place] Start: 01-30-2024 End: 01-30-2024 ambulatory [facility] Start: 01-16-2024 End: 01-16-2024 ambulatory Delmy Weber MD [facility] Start: 01-11-2024 End: 01-11-2024 ambulatory Henrique Bright Facility:[facility] Start: 01-11-2024 End: 01-11-2024 Patient encounter procedure Henrique Bright [facility] Start: 01-09-2024 End: 01-09-2024 Lab Drop off Shivani Limon [facility] Start: 01-09-2024 End: 01-09-2024 ambulatory [facility]KLIN [facility] Start: 01-02-2024 End: 01-02-2024 ambulatory Delmy Weber MD Facility: [place] Start: 12-28-2023 ambulatory Shivani Limon Facility :[id number] Start: 12-26-2023 End: 12-27-2023 ambulatory Jose Solis Facility:[facility] Start: 12-26-2023 End: 12-27-2023 Observation Jose Solis [facility] Start: 12-23-2023 ambulatory Shivani Limon Facility:[facility] Start: 12-22-2023 End: 12-22-2023 ambulatory Shivani Limon Facility:[facility] Start: 12-21-2023 End: 12-21-2023 Bamboo flowsheet Hugo Power DO Work Phone: [facility] Start: 12-21-2023 End: 12-21-2023 Bamboo flowsheet Hugo Power DO Work Phone: [facility] Start: 12-21-2023 End: 12-21-2023 Postop follow up visit related to original px Hugo Power DO Work Phone: [facility] Comment on above: Skin cancer of nose (Primary Dx) Start: 12-21-2023 End: 12-21-2023 ambulatory HUGO POWER Not Available Start: 12-20-2023 End: 12-20-2023 Telephone encounter Lydia Logan RN [facility] Comment on above: Radiology Pre Proced ure Instructions Start: 12-20-2023 ambulatory SHIVANI LIMON Facility: [facility] Start: 12-20-2023 End: 12-20-2023 Subsequent hospital visit by physician Mri Anes/Anxiolysis [facility] Start: 12-20-2023 End: 12-20-2023 Subsequent hospital visit by physician Mri Radio [facility] (I-Stat/1.5t) Radiology Comment on above: Sciatica, right side [M54.31] Start: 12-20-2023 End: 12-20-2023 ambulatory UNKNOWN PROVIDER Facility:[facility] Start: 12-19-2023 End: 12-19-2023 Telephone encounter Lorena Simons RN [facility] Comment on above: MRI Appointment Start: 12-14-2023 End: 12-14-2023 ambulatory CASPER WOMACK Facility:[facility] Start: 12-14-2023 Encounter for other preprocedural examination CASPER WOMACK [facility] Start: 12-14-2023 End: 12-14-2023 Admission to establishment Pacc Main [facility] 2 Work Phone: Pre Anesthesia Start: 12-14-2023 End: 12-14-2023 Anesthesia consultation Pacc 2 Work Phone: Pre Anesthesia Comment on [...] Preprocedural examination done Pac 2 Work Phone: [facility] Work Phone: Start: 12-07-2023 End: 12-07-2023 Telephone encounter Amna Escalera RN MRI Q Comment on above: Appointment ([facility]) Returning Patient's Call Start: 11-16-2023 End: 11-16-2023 Postop follow up visit related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 [phone] -- [address] [place] [address]. Please read below carefully for your personalized [...] Procedures: - YOU MUST HAVE A RESPONSIBLE STRIPPER LATEX TAKE YOU HOME. A BUFFER AUTOMATIC OR LICENSED VETERINARY TECHNICIAN CANNOT BE MADE A RESPONSIBLE STRIPPER LATEX. - We recommend that a responsible person [...] Advance Directive, please fax a copy to [phone] or email to for it to be [...] Pierre Hollis PA-C documented in this encounter [facility] 12-14-2023 History and physical note Images from [...] Admin: COVID-19 vaccine, age 12+ yr, bivalent ([employer]) 12/16/2020 Imm Admin: COVID-19 original vaccine, age 12+ yr, monovalent ([employer] - PURPLE TOP) 04/25/2020 Imm Admin: COVID-19 original vaccine, age 12+ yr, monovalent ([employer] - PURPLE TOP) Only the first 3 [...] visit. Either the patient or their legal senior outside sales representative has been informed of the [...] or any previous visit (from the past 56234 hour(s)). Instructions Given to Patient: Instructions located in the after visit summary. Patient given verbal and written preop instructions and voices comprehension and compliance. SIGNATURE: Jean Pierre Hollis PA-C PATIENT NAME: Jocelyn Hussein DATE: December 14, 2023 TIME: 3:38 PM PAGER/CONTACT #: [facility] 12-14-2023 History and physical note Images [...] visit. Either the patient or their legal senior outside sales representative has been informed of the [...] or any previous visit (from the past 08849 hour(s)). Instructions Given to Patient: Instructions located in the after visit summary. Patient given verbal and written preop instructions and voices comprehension and compliance. SIGNATURE: Jean iPerre Hollis PA-C PATIENT NAME: Jocelyn Hussein DATE: December 14, 2023 TIME: 3:38 PM PAGER/CONTACT #: documented in this encounter [facility] 12-07-2023 Telephone encounter Note Radiology Service Pre [...] Escalera RN December 07, 2023 4:01 PM [facility] 12-07-2023 Miscellaneous Notes Radiology Service Pre Anesthesia [...] 2023 4:01 PM documented in this encounter [facility] 12-07-2023 Telephone encounter Note Radiology Service Pre [...] Escalera RN December 07, 2023 3:50 PM [facility] 12-07-2023 Miscellaneous Notes Radiology Service Pre Anesthesia [...] 2023 3:50 PM documented in this encounter [facility] 12-07-2023 Telephone encounter Note Radiology Service Pre Anesthesia Telephone Call PATIENT NAME: Jocelyn Hussein DATE OF CALL: December 07, 2023 TIME: 12:13 PM PATIENT TYPE: This nurse called the pt to offer education about anxiolysis but there was no answer so a detailed message was left along with a call back number. SIGNED BY: Amna Escalera RN December 07, 2023 12:13 PM [facility] 12-07-2023 Miscellaneous Notes Radiology Service Pre Anesthesia [...] 2023 12:13 PM documented in this encounter [facility] 11-16-2023 History of Present illness Narrative HPI [...] in a month documented in this encounter [facility] 11-04-2023 History of Present illness Narrative mmm documented in this encounter [facility] 10-31-2023 History of Present illness Narrative Allergies as of 10/31/2023 - Reviewed 10/31/2023 Allergen Reaction Noted Lisinopril Unknown 07/20/2023 Past Medical History: Diagnosis Date Arthralgia of hip 10/29/2023 ASCVD (arteriosclerotic cardiovascular disease) ([facility]) Asthma ([facility]) 10/29/2023 Back pain with right-sided sciatica 10/29/2023 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 10/29/2023 Cervical radiculopathy Class 3 obesity ([facility]) 10/29/2023 Diabetic nephropathy ([facility]) 10/29/2023 DM (diabetes mellitus) ([facility]) Gout 10/29/2023 Hearing aid worn 02/21/2009 Hearing loss Hearing loss 10/29/2023 Heart disease High blood pressure ([facility]) 02/21/2009 History of claustrophobia 02/21/1989 History of nephrolithiasis 10/29/2023 HTN (hypertension) ([facility]) HTN (hypertension) ([facility]) 10/29/2023 Hyperlipidemia ([facility]) 10/29/2023 Hypertriglyceridemia ([facility]) 10/29/2023 Hypothyroidism ([facility]) 10/29/2023 Internal derangement of left knee 10/29/2023 Left knee pain 10/29/2023 Nephrolithiasis Osteoarthritis of left knee 10/29/2023 Osteoarthritis, 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 Prostate disorder 10/29/2023 Pure hypercholesterolemia ([facility]) 10/29/2023 Right groin pain 10/29/2023 Sciatica 10/29/2023 Screening PSA (prostate specific antigen) 10/29/2023 Sensorineural hearing loss (SNHL) of both ears Sensorineural hearing loss, bilateral 10/29/2023 Skin cancer screening 10/29/2023 Sleep apnea Sleep apnea 07/21/2008 Stage 3a chronic kidney disease (CKD) ([facility]) 10/29/2023 linked HTN with CKD per OP CDI policy. Type 2 diabetes mellitus with hyperlipidemia ([facility]) 10/03/2015 Current Outpatient Medications: allopurinol (Zyloprim) 300 MG tablet, Take 300 mg by mouth Daily, Disp: , Rfl: atorvastatin (Lipitor) 10 MG tablet, See Instructions, TAKE 1 TABLET BY MOUTH EVERY DAY, # 30 tab(s), Refills(s) 0, Pharmacy: [id number], 170.2, cm, 01/03/23 9:22:00 EST, Height/Length Dosing, [...] consented to proceed. documented in this encounter [facility] 10-11-2023 Note Patient Education Cardiovascular Hypertension, Adult [...] wine (148 mL), (more content not included)... [facility] 09-06-2023 Note Patient Education BMI for Adults [...] for Disease Control and Prevention: www.cdc.gov ? [employer]: www.heart.org ? National Heart, Lung, and Blood [place]: www.nhlbi.nih.gov Summary ? Body mass index (BMI) [...] provider. Document Revised: 10/31/2019 Document Reviewed: 09/07/2019 Else[employer]View Patient Education ? 2022 [employer]. Nutrition BMI for Adults What is BMI? [...] Identifying a weight (more content not included)... [facility] 01-27-2022 Note OPERATIVE NOTE OPERATION DATE: 01/27/2022 [...] good condition. CC: Casper Womack M.D. [facility] Evaluation + Plan note No data available for this section General Surgery [place] Evaluation + Plan note Future Appointments Appointment Date:12/24/2022 08:00:00 AM Scheduled Provider: Location:[facility] Appointment Type: Medicare Wellness Subsequent Appointment Date:12/30/2022 03:20:00 PM Scheduled Provider:Shivani Limon MD Location:[facility] Appointment Type: Open [facility] Evaluation + Plan note Future Appointments Appointment Date:06/23/2023 08:00:00 AM Scheduled Provider:Shivani Limon MD Location:[facility] Appointment Type: Open Appointment Date:01/09/2024 08:00:00 AM Scheduled Provider: Location:[facility] Appointment Type: Medicare Wellness Subsequent Future Scheduled TestsNM Myocardial Spect Rest/Stress 1 Day 12/30/22 [facility] Evaluation + Plan note Future Appointments Appointment Date:01/09/2024 08:00:00 AM Scheduled Provider: Location:[facility] Appointment Type: Medicare Wellness Subsequent Appointment Date:01/09/2024 08:45:00 AM Scheduled Provider:Shivani Limon MD Location:[facility] Appointment Type: Open Future Scheduled TestsNM Myocardial Spect Rest/Stress 1 Day 12/30/22 [facility] Evaluation + Plan note Future Appointments Appointment Date:10/13/2023 10:40:00 AM Scheduled Provider: Location:[facility] Appointment Type: Lab Draw Appointment Date:01/09/2024 08:00:00 AM Scheduled Provider: Location:[facility] Appointment Type: Medicare Wellness Subsequent Appointment Date:01/09/2024 08:45:00 AM Scheduled Provider:Shivani Limon MD Location:[facility] Appointment Type: Open Diagnostic Tests PendingUrine Culture 10/12/23 Future Scheduled TestsUA with Cult Rflx 10/11/07JvkB4l 10/11/23NM Myocardial Spect Rest/Stress 1 Day 12/30/22 [facility] Evaluation + Plan note Future Appointments Appointment Date:01/09/2024 08:00:00 AM Scheduled Provider: Location:[facility] Appointment Type: Medicare Wellness Subsequent Appointment Date:01/09/2024 08:45:00 AM Scheduled Provider:Shivani Limon MD Location:[facility] Appointment Type:FM Open Appointment Date:01/09/2024 10:00:00 AM Scheduled Provider:Fidelina CONKLIN MD Location:[facility] Appointment Type:URO New Patient Future Scheduled TestsUA with Cult Rflx 21/77RenS3b 10/11/23NM Myocardial Spect Rest/Stress 1 Day 12/30/22CT Head or Brain w/o Contrast 01/10/24 [facility] Evaluation + Plan note Future Appointments Appointment Date:01/08/2025 08:00:00 AM Scheduled Provider: Location:[facility] Appointment Type: Medicare Wellness Subsequent Diagnostic Tests PendingHCV Antibody RFX to Quant PCR 01/09/24 Future Scheduled TestsUA with Cult Rflx 8/21/55FqiW9y 01/08/22PkaP5k 10/11/23CT Head or Brain w/o Contrast 01/10/24 [facility] Evaluation + Plan note Future Appointments Appointment Date:01/08/2025 08:00:00 AM Scheduled Provider: Location:[facility] Appointment Type: Medicare Wellness Subsequent Future Scheduled TestsUA with Cult Rflx 8/21/82OetI3y 01/08/30XasN1u 10/11/23 [facility] Evaluation + Plan note Future Appointments Appointment Date:01/08/2025 08:00:00 AM Scheduled Provider: Location:[facility] Appointment Type: Medicare Wellness Subsequent Future Scheduled TestsUA with Cult Rflx 8/21/69VkaN9z /18/66WtwE8d 10/11/23Echo Transthoracic Complete 04/23/24 [facility] Evaluation note No assessment inform ation [facility] Work Phone: Evaluation note Diagnosis Pre-op evaluation- [...] BP at home [facility] Skin cancer of nose- Primary Other malignant neoplasm of skin of other and unspecified parts of face documented in this encounter [facility] HealthcareEvaluation note* Diagnosis Skin cancer of nose- Primary Other malignant neoplasm of skin of other and unspecified parts of face documented in this encounter [facility] HealthcareEvaluation note* Diagnosis 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 Sleep on 2 pillows 2. Small amount of Vaseline to sutures twice daily 3. Okay to shower late tomorrow morning, keep wound dry and clean 3. Take antibiotic as prescribed 4. Tylenol or Motrin for discomfort 6. See Dr. Power in 1 [facility] Work Phone: Progress note No data available for this section General Surgery [place] Summary Purpose Family History No Family History [...] November 04, 2023 End: November 04, 2023 Devops Consultant Relationship Specialty Start Date End Date Casper Womack MD [address] [place] [place] [address] PCP - General 06/01/00 Devops Consultant Relationship Specialty Start Date End Date Casper Womack MD [address] [place] [place] [address] PCP - General 06/01/00 Shivani Limon MD [address] [place] [address] Referring Family Medicine 12/13/23 Devops Consultant Relationship Specialty Start Date End Date Shivani Limon MD [address] [place] [address] PCP - General Family Medicine 12/15/23 Shivani Limon MD [address] [place] [address] Referring Family Medicine 12/13/23 Devops Consultant Relationship Specialty Start Date End Date Shivani Limon MD [address] [place] [address] PCP - General Family Medicine 12/15/23 Shivani Limon MD [address] [place] [place] [address] Referring Family Medicine 12/13/23 Devops Consultant Relationship Specialty Start Date End Date Shivani Limon MD [address] [place] [address] PCP - General Family Medicine 12/15/23 Shivani Limon MD [address] [place] [address] Referring Family Medicine 12/13/23 Devops Consultant Relationship Specialty Start Date End Date Shivani Limon MD [address] [place] [address] PCP - General Family Medicine 12/15/23 Shivani Limon MD [address] [place] [address] Referring Family Medicine 12/13/23 Devops Consultant Relationship Specialty Start Date End Date Shivani Limon MD [address] [place] [address] PCP - General Family Medicine 12/15/23 Shivani Limon MD [address] [place] [address] Referring Family Medicine 12/13/23 Devops Consultant Relationship Specialty Start Date End Date Shivani Limon MD [address] [place] [facility] [place] [address] PCP - General Family Medicine 10/31/23 Nancy Deluca PA [address] [place] [address] [place] [id number] Physician Director [facility] 11/16/23 Hugo Power DO [address] [place] [address] Otolaryngology 11/16/23 Devops Consultant Relationship Specialty Start Date End Date Shivani Limon MD [address] [place] [address] PCP - General Family Medicine 10/31/23 Nancy Deluca PA [address] [place] [address] [place] [phone] Physician Director [facility] 11/16/23 Hugo Power DO [address] [place] [address] Otolaryngology 11/16/23 Devops Consultant Relationship Specialty Start Date End Date Shivani Limon MD [address] [place] [address] PCP - General Family Medicine 10/31/23 Devops Consultant Relationship Specialty Start Date End Date Shivani Limon MD [address] [place] [address] PCP - General Family Medicine 10/31/23 Devops Consultant Relationship Specialty Start Date End Date Shivani Limon MD [address] [place] [facility] [place] [address] PCP - General Family Medicine 10/31/23 Devops Consultant Relationship Specialty Start Date End Date Shivani Limon MD [address] [place] [address] PCP - General Family Medicine 10/31/23 Devops Consultant Relationship Specialty Start Date End Date Shivani Limon MD [address] [place], [place] [phone] PCP - General [facility] Medicine 10/31/23 Devops Consultant Relationship Specialty Start Date End Date Shivani Limon MD [address] [place] [id number] PCP - General Family Medicine 10/31/23 Nancy Deluca PA [address] [facility] [address] [place] [address] Physician Director [facility] 11/16/23 Hugo Power DO [address] [place] [address] Otolaryngology 11/16/23 Devops Consultant Relationship Specialty Start Date End Date Shivani Limon MD [address] [place] [address] PCP - General Family Medicine 10/31/23 Nancy Deluca PA [address] [facility] [address] [place] [phone] Physician Director [facility] 11/16/23 Hugo Power DO [address] [place] [address] Otolaryngology 11/16/23 (unrecognized sect ion and content) [...] DATE CREATED AUTHOR AUTHOR'S ORGANIZ ATION 12/18/2023 [facility] DATE CREATED AUTHOR AUTHOR'S ORGANIZ ATION 12/20/2023 [facility] DATE CREATED AUTHOR AUTHOR'S ORGANIZ ATION 12/21/2023 [facility] DATE CREATED AUTHOR AUTHOR'S ORGANIZ ATION 12/23/2023 [facility] EPIC DATE CREATED AUTHOR AUTHOR'S ORGANIZ ATION 12/28/2023 [facility] DATE CREATED AUTHOR AUTHOR'S ORGANIZ ATION 12/31/2023 [facility] DATE CREATED AUTHOR AUTHOR'S ORGANIZ ATION 01/12/2024 [facility] DATE CREATED AUTHOR AUTHOR'S ORGANIZ ATION 01/13/2024 [facility] DATE CREATED AUTHOR AUTHOR'S ORGANIZ ATION 01/15/2024 [facility] DATE CREATED AUTHOR AUTHOR'S ORGANIZ ATION 01/19/2024 [facility] DATE CREATED AUTHOR AUTHOR'S ORGANIZ ATION 03/06/2024 [facility] DATE CREATED AUTHOR AUTHOR'S ORGANIZ ATION 06/08/2024 [facility] Goals (unrecognized section and content) Goals may be documented in a n alternate section Source Comments (unrecognize d section and content) In the event this informatio n is protected by the Federal Confidentiality of Alcohol and Drug Abuse Patient Records regulations: The Federal rules restrict any use of the information to criminally investigate or prosecute any alcohol or drug abuse patient.[facility] the event this information is protected by the Federal Confidentiality of Alcohol and Drug Abuse Patient Records regulations: The Federal rules restrict any use of the information to criminally investigate or prosecute any alcohol or drug abuse patient.[facility] the event this information is protected by the Federal Confidentiality of Alcohol and Drug Abuse Patient Records regulations: The Federal rules restrict any use of the information to criminally investigate or prosecute any alcohol or drug abuse patient.[facility] System[facility] the event this information is protected by the Federal Confidentiality of Alcohol and Drug Abuse Patient Records regulations: The Federal rules restrict any use of the information to criminally investigate or prosecute any alcohol or drug abuse patient.[facility] System[facility] the event this information is protected by the Federal Confidentiality of Alcohol and Drug Abuse Patient Records regulations: The Federal rules restrict any use of the information to criminally investigate or prosecute any alcohol or drug abuse patient.[facility] System[facility] the event this information is protected by the Federal Confidentiality of Alcohol and Drug Abuse Patient Records regulations: The Federal rules restrict any use of the information to criminally investigate or prosecute any alcohol or drug abuse patient.[facility] System[facility] the event this information is protected by the Federal Confidentiality of Alcohol and Drug Abuse Patient Records regulations: The Federal rules restrict any use of the information to criminally investigate or prosecute any alcohol or drug abuse patient.[facility] System[facility] the event this information is protected by the Federal Confidentiality of Alcohol and Drug Abuse Patient Records regulations: The Federal rules restrict any use of the information to criminally investigate or prosecute any alcohol or drug abuse patient.[facility] System[facility] the event this information is protected by the Federal Confidentiality of Alcohol and Drug Abuse Patient Records regulations: The Federal rules restrict any use of the information to criminally investigate or prosecute any alcohol or drug abuse patient.[facility] Reason for Visit (unrecogniz ed section and [...] BE BASED ON THE PRIMARY CLINICAL RECORDS. [employer] provides no warranty or guarantee of the accuracy or completeness of information in this document.
[2024-09-04 08:05] LABS: Hematocrit 38.2 % (42.0-54.0); Hemoglobin 12.4 g/dL (14.0-18.0); Immature Granulocytes Abs Auto 0.02 10^3/uL (0.00-0.03); Immature Granulocytes Pct Auto 0.3 % (0.0-0.5); Lymphocytes Absolute Auto 1.8 10^3/uL (1.2-3.8); Mean Corpuscular HGB Conc 32.5 g/dL (29.9-35.2); Mean Corpuscular Hemoglobin 31.4 pg (25.9-34.0); Mean Corpuscular Volume 96.7 fL (80.0-94.0); Platelet Count 220 10^3/uL (150-450); Red Blood Count 3.95 10^6/uL (4.70-6.10); White Blood Count 7.0 10^3/uL (4.0-11.0)
[2024-09-04 08:40] LABS: Alanine Aminotransferase 18 U/L (16-63); Albumin Globulin Ratio 1.1; Albumin Level 4.0 g/dL (3.4-5.0); Alkaline Phosphatase 115 U/L (46-116); Anion Gap 16.5; Aspartate Amino Transferase 12 U/L (15-37); Blood Urea Nitrogen 36.0 mg/dL (7.0-18.0); Calcium 9.5 mg/dL (8.5-10.1); Carbon Dioxide 24.8 mmol/L (21.0-32.0); Chloride 106 mmol/L (98-107); Cholesterol 132 mg/dL (<=200); Estimated GFR (African America 46 (>=60 mL/min/1.73m^2); Estimated GFR (Non-African Ame 38 (>=60 mL/min/1.73m^2); Free T3 2.42 pg/mL (2.18-3.98); Globulin 3.6 g/dL; Glucose 143 mg/dL (74-106); HDL Cholesterol 36 mg/dL (40-60); NT Pro B Type Natriuretic Pept 44.0 pg/mL (<=900.0); Potassium 4.3 mmol/L (3.5-5.1); Sodium 143 mmol/L (136-145); Thyroid Stimulating Hormone 2.299 uIU/mL (0.358-3.740); Total Protein 7.6 g/dL (6.4-8.2); Triglycerides 310 mg/dL (<=150); VLDL CHOLESTEROL 62.0 mg/dL
== END 2024-09-04 07:25 | disposition home or self-care (01) ==
LOC: LAB 07:24
PROVIDERS: PCP Family Medicine; Visit Provider Family Medicine
DX: R07.9 Chest pain, unspecified (principal); E11.9 Type 2 diabetes mellitus without complications; I10 Essential (primary) hypertension; E03.9 Hypothyroidism, unspecified; Z12.5 Encounter for screening for malignant neoplasm of prostate; E78.5 Hyperlipidemia, unspecified; Z12.11 Encounter for screening for malignant neoplasm of colon
CPT/HCPCS: 36415; 80053; 80061; 83036; 83880; 84436; 84443; 84481; 85025; G0103

== ENCOUNTER 2024-12-06 09:49 | Outpatient (OUT) | payer MEDICARE, OTHER, SELFPAY ==
--- OUTSIDE RECORDS SUMMARY | 2024-12-06 09:53 | XMS_ITS | Encounter Summary ---
Author Organization [facility] Address [address] [place] [address] Phone Care Team Providers Care Contract Law Specialist Name Role Phone Unavailable Primary Care Provider Unavailabl e Reason for Referral * Consultation (Routine) - Canceled Specialty Diagnoses / Procedures Referred By Kain abraham Referred To Contact Dermatology Diagnoses Melanoma of skin (Multi) Jayy Garcia MD PhD [address] [place] [address], [address] [address] Phone: tel: fax:[phone] Referral ID Status Reason Start Date Expiration Date Visits Requested Visits Authorized [id number] Canceled Specialty Services Required 12/16/2023 12/15/2024 1 1 Encounter Details Date Type Department Care Team (Latest Contact Info) Description 12/16/2023 Transcribe Orders [address] [phone] Jayy Garcia MD PhD [address] [place] [address], [address] [address] Melanoma of skin (Multi) Social History Tobacco Use Types Packs/Day Years Used Date Smoking Tobacco: Never Assessed Sex and Gender Information Value Date Recorded Sex Assigned at Not on file Legal Sex Male 11:26 AM EDT Gender Identity Not on file Sexual Orientation Not on file documented as of this encounter Plan of Treatment Scheduled Referrals Name Type Priority Associated Diagnoses Order Schedule Referral to Dermatology - Mohs Surgery Outpatient Referral Non-Urgent Melanoma of skin (Multi) Ordered: 12/16/2023 documented as of this encounter Visit Diagnoses Diagnosis Melanoma of skin (Multi) Melanoma of skin, site unspecified documented in this encounter
--- OUTSIDE RECORDS SUMMARY | 2024-12-06 09:53 | XMS_ITS | Encounter Summary ---
Author Organization [facility] Address [address] [place] [address] Phone Care Team Providers Care [employer] Truck Driver Name Role Phone Unavailable Primary Care Provider Unavailabl e Encounter Details Date Type Department Care Team (Late st Contact Info) Description 12/19/2023 Lab Requisition [facility] [address] [facility] [address] [place] [phone] Jayy Garcia MD PhD [address] [place] [address] [address], [address] [place], [place] [phone] Disorder of the skin and subcutaneous tissue, unspecified Social History Tobacco Use Types Packs/Day Years Used Date Smoking Tobacco: Never Assessed Sex and Gender Information Value Date Recorded Sex Assigned at Not on file Legal Sex Male 11:26 AM EDT Gender Identity Not on file Sexual Orientation Not on file documented as of this encounter Plan of Treatment Not on file documented as of this encounter Procedures Procedure Name Priority Date/Time Associated Diagnosis Comments DERMPATH CONSULT Routine 12/19/2023 10:2 3 AM EDT Disorder of the skin and subcutaneous tissue, unspecified documented in this encounter Results * Derm Consult (12/19/2023 10:23 AM EDT) Case Report Dermatopathology Report Case: [id number] Authorizing Provider: Jayy Garcia MD PhD Collected: 12/19/20233 Ordering Location: [facility] Received: 12/19/[address] [place] [address] Pathologist: Kvng Sotomayor MD Specimen: OUTSIDE BLOCK(S)/SLIDE(S), 2 SLIDES, [facility], #[id number] (Bx: 07/20/23) 1:38 PM EDT [facility] FINAL DIAGNOSIS 2 SLIDES, [facility], #[id number] (Bx: 07/20/23) SKIN, RIGHT NOSE, SHAVE BIOPSY: [...] Electronically signed out by Kvng Sotomayor MD 1:38 PM EDT [facility] at 1338 EDT Case Summary Report MELANOMA OF THE SKIN: Biopsy MELANOMA OF [...] (pTNM, AJCC 8th Edition): pT Category: pTis 1:38 PM EDT [facility] Clinical History Shave Tangential/Neoplas m of unspecified behavior of bone, soft tissue, and skin. Solar lentigo vs lentigo maligna 1.0 x 1.0 cm hyperpigmented patch. 1:38 PM EDT [facility] Specimen Description A. OUTSIDE BLOCK(S)/SLIDE(S). Received for consultation from [facility] are two slides labeled [id number] (Bx: 07/20/23) along with the corresponding pathology report. 1:38 PM EDT [facility] Outside Materials (OUTSIDE BLOCK(S)/SLIDE(S) ) 12/19/2023 10:23 AM EDT 12/19/2023 10:23 AM EDT us Jayy Garcia MD PhD LAB PATHOLOGY ORDERABLES Final Result [facility] [id number] [place] [address] [id number] documented in this encounter Visit Diagnoses Diagnosis Disorder of the skin and subcutaneous tissue, unspecified documented in this encounter
--- OUTSIDE RECORDS SUMMARY | 2024-12-06 09:53 | XMS_ITS | Clinical Summary ---
Author Organization [facility] Address [address] [place] [address] Care Team Providers Care Elementary Classroom Teacher Name Role Phone William Chow MD Primary Care Provider [phone] Stephany Deluca Unavailable [phone] Hugo Power DO Unavailable [phone] Allergies Active Allergy Reactions Criticality Noted Date Comments Lisinopril Unknown 07/20/2023 Medications naproxen sodium (Aleve) 220 MG tablet every 12 (twelve) hours Active metoprolol succinate XL (Toprol-XL) 100 MG 24 hr tablet Take 100 mg by mouth Daily Active metFORMIN XR (Glucophage-XR) 500 MG 24 hr tablet Take 1,000 mg by mouth in the morning and 1,000 mg before bedtime. 06/30/2023 Active losartan-hydroC HLOROthiazide (Hyzaar) 100-12.5 MG tablet Take 1 tablet by mouth Daily Active levothyroxine (Synthroid, Levoxyl) 75 MCG tablet Take 75 mcg by mouth Daily Active atorvastatin (Lipitor) 10 MG tablet See Instructions , TAKE 1 TABLET BY MOUTH EVERY DAY, # 30 tab(s), Refills(s) 0, Pharmacy: [id number], 170.2, cm, 01/03/23 9:22:00 EST, Height/Lengt h Dosing, 112.5, kg, 06/23/23 8:09:00 EDT, Weight Dosing 11/16/2019 Active allopurinol (Zyloprim) 300 MG tablet Take 300 mg by mouth Daily Active oxyCODONE (Roxicodone) 5 MG immediate release tablet Take 5 mg by mouth every 6 (six) hours if needed 10/11/2023 Active meloxicam (Mobic) 15 MG tablet Take 15 mg by mouth Daily 10/24/2023 Active acetaminophen (Tylenol) 500 MG tablet Every 6 hours 11/01/2023 Active Active Problems No known active problems Resolved Problems Problem Noted Date Diagnosed Date Resolved Date Back pain with right-sided sciatica 10/29/2023 10/29/2023 Arthralgia of hip 10/29/2023 10/29/2023 Gray's palsy 10/29/2023 10/29/2023 Class 3 obesity 10/29/2023 10/29/2023 Diabetic nephropathy 10/29/2023 024 Gout 10/29/2023 10/29/2023 Hearing loss 10/29/2023 10/29/2023 HTN (hypertension) 10/29/2023 History of nephrolithiasis 10/29/2023 0 10/29/2023 Hyperlipidemia 10/29/2023 10/29/2023 Hypertriglyceridemia 10/29/2023 024 Hypothyroidism 10/29/2023 10/29/2023 Left knee pain 10/29/2023 10/29/2023 Internal derangement of left knee 10/29/2023 10/29/2023 Osteoarthritis of left knee 10/29/2023 10/29/2023 Pressure injury of buttock, stage 1 10/29/2023 10/29/2023 Overview (10/29/2023): added per 10/10/2023 query response. Prostate disorder 10/29/2023 10/29/2023 Pure hypercholesterolemia 10/29/2023 Right groin pain 10/29/2023 10/29/2023 Sciatica 10/29/2023 10/29/2023 Sensorineural hearing loss, bilateral 10/29/2023 10/29/2023 Screening PSA (prostate specific antigen) 10/29/2023 10/29/2023 Skin cancer screening 10/29/20232023 Asthma 10/29/2023 10/29/2023 Stage 3a chronic kidney disease (CKD) 10/29/2023 10/29/2023 Overview (10/29/2023): linked HTN with CKD per OP CDI policy. Type 2 diabetes mellitus with hyperlipidemia 6 10/29/2023 Osteoarthritis, shoulder 01/17/201208/2023 Hearing aid worn 02/21/2009 10/29/2023 High blood pressure 02/21/2009 10/29/19 24 Sleep apnea 07/21/2008 10/29/2023 History of claustrophobia 02/21/1989 Immunizations Immunization Administration Dates Next Due Influenza, High Dose Seasona l, Preservative Free 11/30/2022 Influenza, Seasonal, Quadriv alent, Adjuvanted 01/07/2022,01/09/2021,12/21/2019 Pneumococcal Conjugate PCV 13 12/21/2019 Family History Medical History Relation Name Comments Heart disease Father Hypertension Father Diabetes Mother Relation Name Status Comments Father Mother Social History Tobacco Use Types Packs/Day Years Used Date Smoking Tobacco: Never Smokeless Tobacco: Never Tobacco Cessation:Counseling Given: Not Answered Sex and Gender Information Value Date Recorded Sex Assigned at Not on file Legal Sex Male 8:33 PM EDT Gender Identity Not on file Sexual Orientation Not on file Last Filed Vital Signs Vital Sign Reading Time Taken Comments Blood Pressure 152/87 12/06/2018 12:00 PM EDT Pulse - - Temperature - - Respiratory Rate - - Oxygen Saturation - - Inhaled Oxygen Concentration - - Weight 102 kg (225 lb) 12/21/2023 1:34 PM EDT Height 170.2 cm (5' 7 ) 12/21/2023 1:34 PM EDT Body Mass Index 35.24 12/21/2023 1:34 PM EDT Plan of Treatment Not on [place] [address] [employer] Care Teams Elementary Classroom Teacher Relationship Specialty Start Date End Date William Chow MD [address] [place] [address] PCP - General Family Medicine 10/31/23 Stephany Deluca PA [address] [place] [address] Physician Compounding Technician Dermatology 11/16/23 Hugo Power DO [address] [place] [address] Otolaryngology 11/16/23
--- OUTSIDE RECORDS SUMMARY | 2024-12-06 09:53 | XMS_ITS | Clinical Summary ---
Author Organization [facility] Address [id number] [address] [place] [address] Care Team Providers Care 3Rd Mate Name Role Phone Unavailable Primary Care Provider Unavailabl e Social History Tobacco Use Types Packs/Day Years Used Date Smoking Tobacco: Never Assessed Childcare Answer Date Recorded Childcare Unknown 08/03/2018 Employment Answer Date Recorded Employment Unknown 08/03/2018 Purpose - Life Answer Date Recorded Purpose and direction in life Unknown Sex and Gender Information Value Date Recorded Sex Assigned at Not on file Legal Sex Male 5:30 PM EST Gender Identity Not on file Sexual Orientation Not on file Plan of Treatment Not on file Medical Devices Not on file Insurance [place] [employer]
--- OUTSIDE RECORDS SUMMARY | 2024-12-06 09:53 | XMS_ITS | Clinical Summary ---
Author Organization [facility] Address [address] [place] [address] Phone Care Team Providers Care Surgical Services Coordinator Name Role Phone Unavailable Primary Care Provider Unavailabl e Social History Tobacco Use Types Packs/Day Years Used Date Smoking Tobacco: Never Assessed Sex and Gender Information Value Date Recorded Sex Assigned at Not on file Legal Sex Male 11:26 AM EDT Gender Identity Not on file Sexual Orientation Not on file Plan of Treatment Health Maintenance Due Date Last Done Comments CT Colonography 1955 Colonoscopy 1955 Colorectal Cancer Screening 1955 FIT-DNA (Cologuard) 1955 FIT 1955 Lipid Panel 1955 Medicare Annual Wellness Vis it (AWV) 1955 Sigmoidoscopy 1955 Skin Cancer Screening 1955 MMR Vaccines (1 of 1 - Stand kayleen series) 1954 Hepatitis C Screening 1971 DTaP/Tdap/Td Vaccines (1 - Tdap) 1975 Pneumococcal Vaccine (1 of 1 - PCV) 2003 Zoster Vaccines (1 of 2) 2003 Influenza Vaccine (#1) 2024 COVID-19 Vaccine (1 - 2024-2 6 season) 2024 RSV High Risk: (Elderly (60+ ) or Population) (1 - 1-dose 75+ series) 02/18/2028 HIB Vaccines Aged Out No longer eligi ble based on patient's age to complete this topic HPV Vaccines Aged Out No longer eligi ble based on patient's age to complete this topic Hepatitis A Vaccines Aged Out No long er eligible based on patient's age to complete this topic Hepatitis B Vaccines Aged Out No long er eligible based on patient's age to complete this topic IPV Vaccines Aged Out No longer eligi ble based on patient's age to complete this topic Meningococcal Vaccine Aged Out No deondre eleonora eligible based on patient's age to complete this topic Rotavirus Vaccines Aged Out No longer eligible based on patient's age to complete this topic Insurance MEDICARE [employer] [place] MEDICARE SUPPLEMENT MEDICARE [place]ROAD MEDICARE SUPPLEMENT
--- OUTSIDE RECORDS SUMMARY | 2024-12-06 09:53 | XMS_ITS | Encounter Summary ---
Author Organization [facility] Address [address] [place] [address] Care Team Providers Care Legal Financial Specialist Name Role Phone William Chow MD Primary Care Provider Stephany Deluca Unavailable [phone] Hugo Power DO Unavailable [phone] Encounter Details Date Type Department Care Team (Late st Contact Info) Description 11/01/2023 External Result Encounter [facility] External Department Unsolicited Hugo Power, DO [address] [place] [address] Social History Tobacco Use Types Packs/Day Years Used Date Smoking Tobacco: Never Smokeless Tobacco: Never Sex and Gender Information Value Date Recorded Sex Assigned at Not on file Legal Sex Male 8:33 PM EDT Gender Identity Not on file Sexual Orientation Not on file documented as of this encounter Plan of Treatment Not on file documented as of this encounter Procedures Procedure Name Priority Date/Time Associated Diagnosis Comments ECG 12-LEAD 11/01/2023 7:20 AM EDT documented in this encounter Results * ECG 12 lead (11/01/2023 7:20 AM EDT) 11/01/2023 7:[address] [facility] - 11/02/2023 12:04 PM EDT [facility] Main [address] [address] Electrocardiograph Report Signed Patient: Kojo Saeed MR#: [id number] : 1955 Acct:[id number] Age/Sex: 68 / M ADM Date: 11/01/23 Loc: PS Room: Type: [facility] CLI Attending Dr: Hugo Power DO Ordering [...] previous ECGs available Confirmed by Kari Campuzano ([id number]) on 11/02/2023 12:04:39 PM Referred By: Electronically Signed By: Kari Campuzano Transcribed By: MUS Signed By Kari Campuzano DO 4 1204 Procedure Note Kari Campuzano MD - 11/02/2023 [facility] [place] [address] Electrocardiograph Report Signed Patient: Kojo Saeed CMR#: [id number] : 3Acct:[id number] Age/Sex: 68 / MADM Date: 11/01/23 Loc: PS Room:Type: [facility] CLI Attending Dr: Hugo Power DO Ordering [...] previous ECGs available Confirmed by Kari Campuzano ([id number]) on 11/02/2023 12:04:39 PM Referred By: Electronically Signed By: Kari Campuzano Transcribed By: MUS Signed By Kari Campuzano, 4 1204 us Hugo Power DO ECG ORDERABLES Final Resul t COUNT INCLUDES THE [facility] [address] [place] [address], documented in this encounter Visit Diagnoses Not on filedocumented in this encounter Care Teams Legal Financial Specialist Relationship Specialty Start Date End Date William Chow MD [address] [place] [address] PCP - General Family Medicine 10/31/23 Stephany Deluca PA [address] [place] [address] Physician General Education Instructor Dermatology 11/16/23 Hugo Power DO [address] [place] [address] Otolaryngology 11/16/23 documented as of this encounter
--- OUTSIDE RECORDS SUMMARY | 2024-12-06 09:53 | XMS_ITS | Encounter Summary ---
Author Organization [facility] Address [address] [place] [address] Care Team Providers Care Church Musician Name Role Phone William Chow MD Primary Care Provider [phone] William Chow MD Primary Care Provider [phone] Stephany Deluca Unavailable [phone] Hugo Power DO Unavailable [phone] Reason for Visit * Reason Onset Date Comments Care Coordination 08/19/2023 Encounter Details Date Type Department Care Team (Late st Contact Info) Description 08/19/2023 Telephone [facility] [place] [facility] [address] [place] [address] Rosangela Jacobsen LPN Care Coordination Social History Tobacco Use Types Packs/Day Years Used Date Smoking Tobacco: Never Smokeless Tobacco: Never Sex and Gender Information Value Date Recorded Sex Assigned at Not on file Legal Sex Male 8:33 PM EDT Gender Identity Not on file Sexual Orientation Not on file documented as of this encounter Miscellaneous Notes * Telephone Encounter - Rosangela Jacobsen LPN - 08/19/2023 9:11 AM EDT P/C from Natacha with Dr. Garcia's office requesting referral be re-faxed. Faxed initiated andmanually faxed with color photo emailed at this time. Return call from Natacha as our faxes both electronically and manually are failing to go through with the number provided ([phone]). Natacha asked that path report, demographics and photo be emailed at this time to . documented in this encounter Plan of Treatment Not on file documented as of this encounter Visit Diagnoses Not on filedocumented in this encounter Care Teams Church Musician Relationship Specialty Start Date End Date William Chow MD PCP - General Family Medicine 07/12/23 10/30/23 William Chow MD [address] [place] [address] PCP - General Family Medicine 10/31/23 Stephany Deluca PA [address] [place] [address] Physician Fertilizer Supervisor Dermatology 11/16/23 Hugo Power DO [address] [place] [address] Otolaryngology 11/16/23 documented as of this encounter
--- OUTSIDE RECORDS SUMMARY | 2024-12-06 09:53 | XMS_ITS | Encounter Summary ---
Author Organization [facility] Address [address] [place] [address] Care Team Providers Care Game Trapper Name Role Phone Penelope Womack MD Primary Care Provider [phone] iWlliam Chow MD Unavailable [phone] William Chow MD Primary Care Provider [phone] Source Comments In the event this information is protected by the Federal Confidentiality of Alcohol and Drug AbusePatient Records regulations: The Federal rules restrict any use of the information to criminally investigate or prosecute any alcohol or drug abuse patient.[facility] Encounter Details Date Type Department Care Team (Late st Contact Info) Description 12/14/2023 Patient Msg Pre Anesthesia [address] [place] [address] Shivani Hollis PA-C [facility] [address] [address] Preop instructions Social History Tobacco Use Types Packs/Day Years Used Date Smoking Tobacco: Never Alcohol Use Standard Drinks/Week Comments Yes 0 (1 standard drink = 0.6 oz pur e alcohol) maybe 1 drink per week Area Deprivation Index Answer Date Robin rded National Score (1-100), lowe r number is lower risk 53 12/14/2023 State Score (1-10), lower number is lower risk 3 12/14/2023 Data from: https://www.neighborhoodatlas.medicine.[facility].edu/ . Last address used for calculation [address] [place] 12/14/2023 Sex and Gender Information Value Date Recorded Sex Assigned at Not on file Legal Sex Male 9:13 AM EST Gender Identity Not on file Sexual Orientation Not on file documented as of this encounter Plan of Treatment Not on file documented as of this encounter Visit Diagnoses Not on filedocumented in this encounter Care Teams Game Trapper Relationship Specialty Start Date End Date Penelope Womack MD [address] [place] [address] PCP - General 06/01/00 12/14/23 William Chow MD [address] [place] [address] PCP - General Family Medicine 12/15/23 William Chow MD [address] [place] [address] Referring Family Medicine 12/13/23 documented as of this encounter
--- OUTSIDE RECORDS SUMMARY | 2024-12-06 09:53 | XMS_ITS | Encounter Summary ---
Author Organization [facility] Address [address] [place] [address] Phone Care Team Providers Care Database Operator Name Role Phone Unavailable Primary Care Provider Unavailabl e Reason for Referral * Consultation (Routine) - Authorized Specialty Diagnoses / Procedures Referred By Kain abraham Referred To Contact Dermatology Diagnoses Melanoma of skin (Multi) Jayy Garcia MD PhD [address] [place], [place] [address] , [address] [address] Phone: tel: fax:[phone] Referral ID Status Reason Start Date Expiration Date Visits Requested Visits Authorized [id number] Authorized Specialty Services Required 08/19/2023 08/18/2024 1 1 Encounter Details Date Type Department Care Team (Latest Contact Info) Description 08/19/2023 Transcribe Orders [address] [address] Jayy Garcia MD PhD [facility] [address] , [place] [id number] Melanoma of skin (Multi) Social History Tobacco [...] to Dermatology - Mohs Surgery Outpatient Referral Routine Melanoma of skin (Multi) Ordered: 08/19/2023 documented as of this encounter Visit Diagnoses Diagnosis Melanoma of skin (Multi) Melanoma of skin, site unspecified documented in this encounter
--- OUTSIDE RECORDS SUMMARY | 2024-12-06 09:53 | XMS_ITS | Clinical Summary ---
Author Organization [facility] Address [address] [place] [address] Care Team Providers Care Structural Biologist Name Role Phone William Chow MD Unavailable [phone] William Chow MD Primary Care Provider [phone] Allergies No known active allergies Medications Losartan-Hydroc hlorothiazide 100-12.5 mg per tablet Take 1 tablet by mouth once daily. Active metoprolol succinate XL, long acting, (TOPROL XL) 100 mg Tb24 Take 100 mg by mouth. Active allopurinol 300 mg tablet Take 300 mg by mouth once daily. Active metFORMIN ER (GLUCOPHAGE XR) 500 mg 24 hr tablet Take 500 mg by mouth two times a day. 2 tablets in the morning and 2 in the evening 06/30/2023 Active atorvastatin (LIPITOR) 10 mg tablet Take 10 mg by mouth once daily. 11/16/2019 Active levothyroxine (SYNTHROID) 75 mcg tablet Take 1 tablet by mouth every afternoon. 11/23/2023 Active Active Problems Problem Noted Date Diagnosed Date Primary hypertension 12/14/2023 Assessment & Plan (12/14/2023 11:31 AM EDT): -on Losartan-HCTZ and Metoprolol -does not check BP at home Type 2 diabetes mellitus wit hout complication, without long-term current use of insulin 12/14/2023 Assessment & Plan (12/14/2023 11:32 AM EDT): -on Metformin -last A1c 6.0% per patient in 08/2023 -FBS ~130 AVELINA (obstructive sleep apnea) 12/14/2023 Assessment & Plan (12/14/2023 11:32 AM EDT): -compliant with CPAP Class 2 obesity due to exces s calories without serious comorbidity with body mass index (BMI) of 36.0 to 36.9 in adult 12/14/2023 Assessment & Plan (12/14/2023 11:32 AM EDT): -BMI 36.81 Other specified hypothyroidism 12/14/2023 Assessment & Plan (12/14/2023 11:33 AM EDT): -on Levothyroxine Osteoarthritis, shoulder 01/17/2012 Family History Medical History Relation Comments Anesthesia Problems No Family History Social History Tobacco Use Types Packs/Day Years Used Date Smoking Tobacco: Never Tobacco Cessation:Counseling Given: Not Answered Alcohol Use Standard Drinks/Week Comments Yes 0 (1 standard drink = 0.6 oz pur e alcohol) maybe 1 drink per week Area Deprivation Index Answer Date Robin rded National Score (1-100), lowe r number is lower risk 53 12/20/2023 State Score (1-10), lower number is lower risk 3 12/20/2023 Data from: https://www.neighborhoodatlas.medicine.[facility].edu/ . Last address used for calculation [address] 12/20/2023 Sex and Gender Information Value Date Recorded Sex Assigned at Not on file Legal Sex Male 9:13 AM EST Gender Identity Not on file Sexual Orientation Not on file Last Filed Vital Signs Vital Sign Reading Time Taken Comments Blood Pressure 103/52 12/20/2023 11:30 AM EDT Pulse 62 12/20/2023 11:30 AM EDT Temperature 36.7 C (98.1 F) 12/20/2023 8:55 AM EDT Respiratory Rate 16 12/20/2023 11:30 AM EDT Oxygen Saturation 98% 12/20/2023 11:30 AM EDT Inhaled Oxygen Concentration - - Weight 106.6 kg (235 lb) 12/14/2023 11:05 AM EDT Height 170.2 cm (5' 7 ) 12/14/2023 11:05 AM EDT Body Mass Index 36.81 12/14/2023 11:05 AM EDT Plan of Treatment Health Maintenance Due Date Last Done Comments Anxiety Screening 1971 Depression Screening 1971 Hepatitis C Screening 1971 DTaP,Tdap,Td Vaccine (1 - Tdap) 02/18/1972 Lipid Screening 02/18/1988 CT Colonography 1998 Cologuard (FIT-DNA) 1998 Colonoscopy 1998 Colorectal Cancer Screening 1998 Fecal Occult Blood 1998 Sigmoidoscopy 1998 Shingrix Vaccine (1 of 2) 2003 Pneumococcal Vaccine: 50+ (2 of 2 - PCV20 or PCV21) 12/20/2020 12/21/2019 Advance Directive Discussion 02/22/2024 Covid-19 Vaccine (5 - 2024-2 6 season) 2024 02/01/2022, 12/16/2020, 04/25/2020, Additional history exists Influenza Vaccine (#1) 2024 , 01/07/2022, 01/09/2021, Additional history exists Diabetes Screening 10/31/2026 11/01/2023, 0 04/13/2017, 04/13/2017 RSV Vaccine (1 - 1-dose 75+ series) 02/18/2028 Insurance MEDICARE O MEDICARE SUPPLEMENT MEDICARE RAILROAD Care Teams Structural Biologist Relationship Specialty Start Date End Date William Chow MD [address] [place] [address] PCP - General Family Medicine 12/15/23 William Chow MD [address] [place], [place] [address] [place] [address] Referring Family Medicine 12/13/23
--- OUTSIDE RECORDS SUMMARY | 2024-12-06 09:53 | XMS_ITS | Encounter Summary ---
Author Organization [facility] Address [address] [place] [address] Phone Care Team Providers Care Farm Equipment Engine Mechanic Name Role Phone Unavailable Primary Care Provider Unavailabl e Encounter Details Date Type Department Care Team (Late st Contact Info) Description 08/22/2023 Lab Requisition [facility] [address] [facility] [address] [place] [id number] Jayy Garcia MD PhD [address] [place] [address] B, [address] [place], [place] [id number] Disorder of the skin and subcutaneous tissue, [...] Date/Time Associated Diagnosis Comments DERMPATH CONSULT Routine 08/22/2023 9:38 AM EDT Disorder of the skin and subcutaneous tissue, unspecified documented in this encounter Results * Derm Consult (08/22/2023 9:38 AM EDT) Case Report Dermatopathology Report Case: [id number] Authorizing Provider: Jayy Garcia MD PhD Collected: 08/22/2023937 Ordering Location: [facility] Received: 08/22/[address] [place] [address] Pathologist: Natacha Mckoy MD Specimen: OUTSIDE BLOCK(S)/SLIDE(S), 2 SLIDES, [facility], #[id number] (BX: 07/20/23) 2:05 PM T [facility] FINAL DIAGNOSIS 2 SLIDES, [facility], #[id number] (BX: 07/20/23) SKIN, RIGHT NOSE, SHAVE BIOPSY: MALIGNANT MELANOMA IN SITU, LENTIGO MALIGNA SUBTYPE, EXTENDING TO THE DEEP AND THE PERIPHERAL MARGINS IN THESE PLANES OF SECTION. Electronically signed out by NATACHA MCKOY MD 2:05 PM [facility] at 1404 EDT Case Summary Report MELANOMA OF THE [...] Tumor block is [facility] original case # [id number] 4 2:05 PM [facility] Clinical History Shave Tangential/Neoplas m of unspecified behavior of bone, soft tissue, and skin. Solar lentigo vs Lentigo maligna. 1.0 x 1.0 cm hyperpigmented patch. 4 2:05 PM T [facility] Specimen Description A. OUTSIDE BLOCK(S)/SLIDE(S). Received for consultation from [facility] are two slides labeled [id number] (Bx: 07/20/23) along with the corresponding pathology report. 4 2:05 PM T [facility] Microscopic Description The Hematoxylin and Eosin stained sections of the trisected shave specimen reveals poorly nested atypical junctional melanocytes along the dermal-epidermal junction with confluence and pagetoid scatter. There is significant dermal solar elastosis. 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 The received deeper additional step sections were additionally reviewed. 2:05 PM EDT [facility] Outside Materials (OUTSIDE BLOCK(S)/SLIDE(S) ) 08/22/2023 9:38 AM EDT 08/22/2023 9:38 AM EDT us Jayy Garcia MD PhD LAB PATHOLOGY ORDERABLES Final Result [facility] [address] [address] [place] [id number] documented in this encounter Visit Diagnoses Diagnosis Disorder of the skin and subcutaneous tissue, unspecified documented in this encounter
--- OUTSIDE RECORDS SUMMARY | 2024-12-06 09:55 | XMS_ITS | CCD ---
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 Date/Time: Dec 20 2023 1:30P Dictated by : FIDELINA BRYAN MD This examination was interpreted and the report reviewed and electronically signed by: FIDELINA BRYAN MD on Dec 20 2023 1:33PM EST [facility] Radiology Study observation (narrative) [facility] MR Pelvis WO contrastOrdered By: [facility] Provider on 12-20-2023 [facility] MRI PELVIS WO IVCONon 2023 MRI [...] abnormality. Partial visualization of lumbar degenerative change. Cut Lace Machine Operator: CRISTY Transcribe Date/Time: Dec 20 2023 1:30P Dictated by : FIDELINA BRYAN MD This examination was interpreted and the report reviewed and electronically signed by: FIDELINA BRYAN MD on Dec 20 2023 1:33PM EST [id number] [facility] NURSING PROGon 12-20-2023 NURSING PROG HNO ID: [id number] Author: LORENA SIMONS RN Service: Interventional Radiology [...] DATE: December 20, 2023 TIME: 11:25 AM [facility] 12-19-2023 [facility] Telephone (MMAD) JOCELYN HUSSEIN ([id number]) 1955 M Date Time Provider Department 12/19/23 LORENA SIMONS [facility] During your visit today, we recorded the following information about you: Allergies As of Date: 12/19/2023 (No Known Allergies) Date Reviewed: 12/14/2023 Reviewed by: Jean Pierre Hollis PA-C - Fully Assessed Reason for Visit: MRI Appointment [0079] Prescriptions as of 12/19/2023 - metFORMIN ER [...] Encounter Status:Closed by LORENA SIMONS on 12/19/23 [facility] Surgical pathology studyon 1 Surgical pathology study Pathology report.total SEE COMMENT Dermatopathology Report Case: [id number] Authorizing Provider: Jayy Garcia MD PhD Collected: 12/19/2023 1023 Ordering Location: [facility] Received: 12/19/2023 1023 [facility] Pathologist: Kvng Sotomayor MD Specimen: OUTSIDE BLOCK(S)/SLIDE(S), 2 SLIDES, [facility], #[id number] (Bx: 07/20/23) Path report.final diagnosis SEE COMMENT 2 SLIDES, [facility], #[id number] (Bx: 07/20/23) SKIN, RIGHT NOSE, SHAVE BIOPSY: [...] A. OUTSIDE BLOCK(S)/SLIDE(S). Received for consultation from [facility] are two slides labeled [id number] (Bx: 07/20/23) along with the corresponding pathology report. [facility] Ambulatory Comment on above: Order Comment: Mater ials Received: 2 SLIDES, [facility], #[id number] (Bx: 07/20/23) HISTORY PHYSICALon HISTORY PHYSICAL HNO ID: [id number] Author: JEAN PIERRE HOLLIS PA-C Service: ? Author Type: Physician Hydraulic Riveter Type: H&P Filed: 12/14/2023 11:34 Note Text: [...] visit. Either the patient or their legal labor service representative has been informed of the risks [...] angina, antico (more content not included)... Normal [facility] 12-07-2023 [facility] Telephone (MRIQ) JOVITAJOCELYN Cory ([id number]) 1955 M Date Time Provider Department 12/07/23 [...] Encounter Status:Closed by AMNA ESCALERA on 12/07/23 [facility] Telephone (MRIQ) JOCELYN HUSSEIN ([id number]) 1955 M Date Time Provider Department 12/07/23 [...] Encounter Status:Closed by AMNA ESCALERA on 12/07/23 [facility] Telephone (MRIQ) JOCELYN HUSSEIN ([id number]) 1955 M Date Time Provider Department 12/07/23 [...] Status:Closed by AMNA ESCALERA on 12/07/23 Normal [facility] GLUCOSE POCT GLUCOMETERSon 0 11-05-2023 Glucose [Mass/Vol] 131 mg/dL [facility] Comment on above: Random Glucose Refer ence Range is dependent on time and content of last meal. Glucose of more than 200 mg/dL in a nonstressed, ambulatory subject supports the diagnosis of Diabetes Mellitus. [facility] Capillary blood glucose vonda urement by glucometer (mass/volume)Ordered By: Hugo Power on 11-04-2023 Glucose [Mass/Vol] 132 mg/dL Normal [facility] Comment on above: Random Glucose Refer ence Range is dependent on time and content of last meal. Glucose of more than 200 mg/dL in a nonstressed, ambulatory subject supports the diagnosis of Diabetes Mellitus. Result Comment: [facility] Glucose Reference Range is dependent on time and content of last meal. Glucose of more than 200 mg/dL in a nonstressed, ambulatory subject supports the diagnosis of Diabetes Mellitus. Performed By: #### G LULS #### Point of Care testing , GLUCOSE POCT GLUCOMETERSon 0 11-04-2023 COMMEMT1 Glu2: Cleaned Meter [facility] Glucose [Mass/Vol] 132 mg/dL [facility] Comment on above: Random Glucose Refer ence Range is dependent on time and content of last meal. Glucose of more than 200 mg/dL in a nonstressed, ambulatory subject supports the diagnosis of Diabetes Mellitus. [facility] Glucose Poct Glucometerson 0 11-04-2023 Glucose [Mass/Vol] 131 mg/dL Normal [facility] Comment on above: Result Comment: [facility] Glucose Reference Range is dependent on time and content of last meal. Glucose of more than 200 mg/dL in a nonstressed, ambulatory subject supports the diagnosis of Diabetes Mellitus. PERFORMED BY: [address] [place] [address] PATHOLOGIST GINNER HELPER JEVON DAILEY M.D. Performed By: #### G LULS #### Point of Care testing , Commemt1 Glu2: Cleaned Meter Normal [facility] Comment on above: Result Comment: PERF ORMED BY: [facility] [address] [place] [address] PATHOLOGIST GINNER HELPER JEVON DAILEY M.D. Performed By: #### G LULS #### Point of Care testing , Jose 11-04-2023 L Specimen: [id number] Received: 11/04/23 Status: CUATE Torres Num: [id number] Spec Type: Surgical Subm Dr: Hugo Power DO Tissues: A Skin-Other than Cyst, tag, debridement or plastic repair (NOSE) Procedures: HE/10, Gross/Micro L4 Age/ Patient Sex Location Account Attending Physician Jocelyn Hussein 68/M [place] [id number] Hugo Power DO SPEC NUM: [id number] RECD: 11/04/23 STATUS: CUATE VELASQUEZJessica NUM: [id number] ESHA: 11/04/23 DR: Hugo Power DO ENTERED: 11/04/23 [facility] DR: SPEC TYPE: Surgical DEPT: S ENTERED BY: [id number] RECV BY: [id number] ORDERED: HE/10, Gross/Micro L4 ORDERED: HE/10, Gross/Micro [...] A2 mid sections A3 6:00 trisected Specimen: [id number] Received: 11/04/23 Status: CUATE Melissa Num: [id number] Spec Type: Surgical Subm Dr: Hugo Power DO Tissues: A Skin-Other than Cyst, tag, debridement or plastic repair (NOSE) Procedures: Daphne/Gail L4 Patient: JovitaJocelyn Cory [id number] (Continued) Specimen: [id number] Received: 11/04/23 (Continued) Signed (signature on file) Ramandeep Coto MD 11/10/23 1824 Specimen: [id number] Received: 11/04/23 Status: CUATE Torres Num: [id number] Spec Type: Surgical Subm Dr: Hugo Power DO Tissues: A Skin-Other than Cyst, tag, debridement or plastic repair (NOSE) Procedures: Daphne/Gail L4 Patient: Jocelyn Hussein [id number] (Continued) Specimen: [id number] Received: 11/04/23 (Continued) CPT Codes 97287 Specimen: [id number] Received: 11/04/23 Status: CUATE Torres Num: [id number] Spec Type: Surgical Subm Dr: Hugo Power DO Tissues: A Skin-Other than Cyst, tag, debridement or plastic repair (NOSE) Procedures: Mitesh, Gross/Micro L4 Patient: Jocelyn Hussein [id number] (Continued) Signed (signature on file) Ramandeep Coto MD 11/10/23 1824 Normal [facility] No Panel InformationOrdered By: Hugo Power on 11-04-2023 Bedside Glucose Comment Glu2: cleaned meter [facility] Automated basophil %Ordered By: Hugo Power on 11-01-2023 Basophils/100 WBC (Bld) 0.8 % Normal . [facility] Comment on above: Performed By: #### B MP, CBC #### [facility] [address] Automated basophil countOrde red By: Hugo Power on 11-01-2023 Basophils (Bld) [#/Vol] 0.0 10*3/uL Normal 0.0-0.2 [facility] Comment on above: Result Comment: PERF ORMED BY: [facility] [address] [place] [address] PATHOLOGIST GINNER HELPER JEVON DAILEY M.D. Performed By: #### B MP, CBC #### [facility] [address] Automated blood monocyte cou ntOrdered By: Hugo Power on 11-01-2023 Monocytes (Bld) [#/Vol] 0.7 10*3/uL Normal 0.0-0.8 [facility] Comment on above: Performed By: #### B MP, CBC #### [facility] [address] Automated eosinophil %Ordere d By: Hugo Power on 11-01-2023 Eosinophils/100 WBC (Bld) 7.5 % Normal . [facility] Comment on above: Performed By: #### B MP, CBC #### [facility] [address] [place] [address] Automated eosinophil countOr dered By: Hugo Power on 11-01-2023 Eosinophils (Bld) [#/Vol] 0.5 10*3/uL High 0.0-0.45 [facility] Comment on above: Performed By: #### B MP, CBC #### [address] Automated monocyte %Ordered By: Hugo Power on 11-01-2023 Monocytes/100 WBC (Bld) 10.5 % Normal . [facility] Comment on above: Performed By: #### B MP, CBC #### [address] Automated neutrophil %Ordere d By: Hugo Power on 11-01-2023 Neutrophils/100 WBC (Bld) 56.2 % Normal . [facility] Comment on above: Performed By: #### B MP, CBC #### [address] Basic Metabolic Panelon 10-22 GFR/1.73 sq M.predicted MDRD (S/P/Bld) [Vol rate/Area] mL/min/{1.73_m2} Normal [facility] Comment on above: Performed By: #### B MP, CBC #### [address] Basic metabolic 1998 panelon 11-01-2023 Anion gap [Moles/Vol] 12.9 mmol/L 6.0 - 15.0 [facility] Calcium [Mass/Vol] 9.1 mg/dL 8.6 - 10.3 mg/dL [facility] Chloride [Moles/Vol] 104 mmol/L 98 - 107 mmol/L [facility] CO2 [Moles/Vol] 24.3 mmol/L 21.0 - 31.0 mmol/L [facility] Creatinine (U) [Mass/Vol] 1.15 mg/dL 0.70 - 1.30 mg/dL [facility] GFR/1.73 sq M.predicted MDRD (S/P/Bld) [Vol rate/Area] mL/min/{1.73_m2} [facility] Glucose [Mass/Vol] 117 mg/dL High 70 - 100 mg/dL NO [facility] Comment on above: Random Glucose Refer ence Range is dependent on time and content of last meal. Glucose of more than 200 mg/dL in a nonstressed, ambulatory subject supports the diagnosis of Diabetes Mellitus. ADA recommended reference range Interpretation and review of laboratory results Abnormal [facility] Potassium [Moles/Vol] 4.2 mmol/L 3.5 - 5.1 mmol /L [facility] Comment on above: Hemolysis is present at a level that could interfere with the result. Contact lab if redraw is required Sodium [Moles/Vol] 137 mmol/L 136 - 145 mmol/L [facility] Urea nitrogen [Mass/Vol] 27 mg/dL High 7 - 25 mg/dL [facility] CBC W Auto Differential pane l (Bld)on 11-01-2023 Basophils (Bld) [#/Vol] 0.0 10*3/uL 0.0 - 0.2 10*3/uL [facility] Basophils/100 WBC Manual cnt (Syn fld) 0.8 % . [facility] Eosinophils (Bld) [#/Vol] 0.5 10*3/uL High 0.0 - 0.45 10*3/uL [facility] Eosinophils/100 WBC Manual cnt (Syn fld) 7.5 % . [facility] Erythrocyte distribution width (RBC) [Ratio] 13.0 % 12.0 - 14.8 % [facility] Hematocrit (Bld) [Volume fraction] 36.1 % Low 38.8 - 50.0 % [facility] Hemoglobin (Bld) [Mass/Vol] 12.3 g/dL Low 13.0 - 17.0 g/dL [facility] Interpretation and review of laboratory results Abnormal [facility] Lymphocytes (Bld) [#/Vol] 1.6 10*3/uL 1.00 - 4.8 10*3/uL [facility] Lymphocytes/100 WBC Manual cnt (Syn fld) 25.0 % . [facility] MCH (RBC) [Entitic mass] 31.6 pg 27.5 - 35.2 pg [facility] MCHC (RBC) [Mass/Vol] 34.0 g/dL 32.5 - 35.6 g/ dL [facility] MCV (RBC) [Entitic vol] 93.0 fL 83.5 - 101 fL [facility] Monocytes (Bld) [#/Vol] 0.7 10*3/uL 0.0 - 0.8 10*3/uL [facility] Monocytes+Macrophages/ 100 WBC Manual cnt (Syn fld) 10.5 % . [facility] Neutrophils (Bld) [#/Vol] 3.6 10*3/uL 1.8 - 7.7 10*3/uL [facility] Neutrophils/100 WBC Manual cnt (Syn fld) 56.2 % . [facility] NRBC 0.1 /100{WBC} 0 - 0.5 /100{WBC} [facility] Platelet mean volume (Bld) [Entitic vol] 6.6 fL 6.6 - 10.1 fL [facility] Platelets (Bld) [#/Vol] 205 10*3/uL 150 - 450 10*3/uL [facility] RBC LM.HPF (Urine sed) [#/Area] 3.88 /[HPF] Low 3.90 - 5.60 [facility] WBC (Bld) [#/Vol] 6.4 10*3/uL 4.1 - 10.5 10*3/uL [facility] WBC LM.HPF (Urine sed) [#/Area] 6.4 10*3/uL 4.1 - 10.5 10*3/uL [facility] Calcium [Mass/volume] in Ser um or PlasmaOrdered By: Hugo Power on 11-01-2023 Calcium [Mass/Vol] 9.1 mg/dL Normal 8.6-10.3 [facility] Comment on above: Result Comment: PERF ORMED BY: [place] [address] PATHOLOGIST GINNER HELPER JEVON DAILEY M.D. Performed By: #### B MP, CBC #### [address] Carbon dioxide, total [Moles /volume] in Serum or PlasmaOrdered By: Hugo Power on 11-01-2023 CO2 [Moles/Vol] 24.3 mmol/L Normal 21.0-31.0 [facility] Comment on above: Performed By: #### B MP, CBC #### [facility] [address] [place] [address] Chloride [Moles/volume] in S charles or PlasmaOrdered By: Hugo Power on 11-01-2023 Chloride [Moles/Vol] 104 mmol/L Normal 98-107 [facility] Comment on above: Performed By: #### B MP, CBC #### [facility] [address] [place] [address] Complete Blood Count Auto Di ffon 11-01-2023 Mean Corpuscular HGB Conc 34.0 g/dL Normal 32.5-35.6 [facility] Comment on above: Performed By: #### B MP, CBC #### [facility] [address] [place] [address] NRBC% 0.1 /100{WBC} Normal 0-0.5 [facility] Comment on above: Performed By: #### B MP, CBC #### [address] Creatinine [Mass/volume] in Serum or PlasmaOrdered By: Hugo Power on 11-01-2023 Creatinine [Mass/Vol] 1.15 mg/dL Normal 0.70-1.30 [facility] Comment on above: Performed By: #### B MP, CBC #### [place] [address] [place] ECG 12 lead ECGon 11-01-2023 ECG 12 lead ECG [facility] Main [place] [address] [place] [address] Electrocardiograph Report Signed Patient: Jocelyn Hussein MR#: [id number] : 1955 Acct:[id number] Age/Sex: 68 / M ADM Date: 11/01/23 Loc: Room: Type: [facility] CLI Attending Dr: Hugo Power [...] previous ECGs available Confirmed by Kari Campuzano ([id number]) on 11/02/2023 12:04:39 PM Referred By: Electronically Signed By: Kari Campuzano Transcribed By: [facility] Signed By Kari Campuzano DO 4 1204 Normal [facility] Erythrocyte distribution wid th [Ratio] by Automated countOrdered By: Hugo Power on 11-01-2023 Erythrocyte distribution width (RBC) [Ratio] 13.0 % Normal 12.0-14.8 [facility] Comment on above: Performed By: #### B MP, CBC #### [facility] [address] [place] [address] [place] Erythrocytes [#/volume] in B lood by Automated countOrdered By: Hugo Power on 11-01-2023 RBC (Bld) [#/Vol] 3.88 10*6/uL Low 3.90-5.60 [facility] Comment on above: Performed By: #### B MP, CBC #### [facility] [address] [place] [id number] [place] Glucose [Mass/volume] in Ser um or PlasmaOrdered By: Hugo Power on 11-01-2023 Glucose [Mass/Vol] 117 mg/dL High 70-100 [facility] Comment on above: ADA recommended refe rence rangeRandom Glucose Reference Range is dependent on time and content of last meal. Glucose of more than 200 mg/dL in a nonstressed, ambulatory subject supports the diagnosis of Diabetes Mellitus. Result Comment: [facility] Glucose Reference Range is dependent on time and content of last meal. Glucose of more than 200 mg/dL in a nonstressed, ambulatory subject supports the diagnosis of Diabetes Mellitus. ADA recommended reference range Performed By: #### B MP, CBC #### [address] Hematocrit [Volume Fraction] of Blood by Automated countOrdered By: Hugo Power on 11-01-2023 Hematocrit (Bld) [Volume fraction] 36.1 % Low 38.8-50.0 [facility] Comment on above: Performed By: #### B MP, CBC #### [address] Hemoglobin [Mass/volume] in BloodOrdered By: Hugo Power on 11-01-2023 Hemoglobin (Bld) [Mass/Vol] 12.3 g/dL Low 13.0-17.0 [facility] Comment on above: Performed By: #### B MP, CBC #### [address] Leukocytes [#/volume] correc odalis for nucleated erythrocytes in Blood by Automated counOrdered By: Hugo Power on 11-01-2023 WBC corrected for nucl RBC Auto (Bld) [#/Vol] 6.4 10*3/uL 4.1-10.5 [facility] Leukocytes [#/volume] in Blo od by Automated countOrdered By: Hugo Power on 11-01-2023 WBC (Bld) [#/Vol] 6.4 10*3/uL Normal 4.1-10.5 [facility] Comment on above: Performed By: #### B MP, CBC #### [place] [address] [place] Lymphocytes [#/volume] in Bl ood by Automated countOrdered By: Hugo Power on 11-01-2023 Lymphocytes (Bld) [#/Vol] 1.6 10*3/uL Normal 1.00-4.8 [facility] Comment on above: Performed By: #### B MP, CBC #### [place] [address] [place] Lymphocytes/100 leukocytes i n Blood by Automated countOrdered By: Hugo Power on 11-01-2023 Lymphocytes/100 WBC (Bld) 25.0 % Normal . [facility] Comment on above: Performed By: #### B MP, CBC #### [facility] [address] [place] [address] MCH [Entitic mass] by Automa odalis countOrdered By: Hugo Power on 11-01-2023 MCH (RBC) [Entitic mass] 31.6 pg Normal 27.5-35.2 [facility] Comment on above: Performed By: #### B MP, CBC #### [facility] [address] [place] [address] MCHC Auto (RBC) [Mass/Vol]Or dered By: Hugo Power on 11-01-2023 MCHC (RBC) [Mass/Vol] 34.0 g/dL 32.5-35.6 [facility] MCV [Entitic volume] by Auto mated countOrdered By: Hugo Power on 11-01-2023 MCV (RBC) [Entitic vol] 93.0 fL Normal 83.5-101 [facility] Comment on above: Performed By: #### B MP, CBC #### [facility] [address] [place] [address] Neutrophils [#/volume] in Bl ood by Automated countOrdered By: Hugo Power on 11-01-2023 Neutrophils (Bld) [#/Vol] 3.6 10*3/uL Normal 1.8-7.7 [facility] Comment on above: Performed By: #### B MP, CBC #### [facility] [address] [place] [address] No Panel InformationOrdered By: Hugo Power on 11-01-2023 Estimated GFR (CKD-EPI) > 60.0 mL/Min [facility] Creatinine Clearance (Chem N/A [facility] Nucleated erythrocytes [Pres ence] in Blood by Automated countOrdered By: Hugo Power on 11-01-2023 Nucleated RBC Auto Ql (Bld) 0.1 /100{WBC} 0-0.5 [facility] Platelet mean volume [Entiti c volume] in Blood by Automated countOrdered By: Hugo Power on 11-01-2023 Platelet mean volume (Bld) [Entitic vol] 6.6 fL Normal 6.6-10.1 [facility] Comment on above: Performed By: #### B MP, CBC #### [facility] [address] Platelets [#/volume] in Bloo d by Automated countOrdered By: Hugo Power on 11-01-2023 Platelets (Bld) [#/Vol] 205 10*3/uL Normal 150-450 [facility] Comment on above: Performed By: #### B MP, CBC #### [address] Potassium [Moles/volume] in Serum or PlasmaOrdered By: Hugo Power on 11-01-2023 Potassium [Moles/Vol] 4.2 mmol/L Normal 3.5-5.1 [facility] Comment on above: Hemolysis is present at a level that could interfere with the result.Contact lab if redraw is required Result Comment: Hemo lysis is present at a level that could interfere with the result. Contact lab if redraw is required Performed By: #### B MP, CBC #### [address] Serum or plasma anion gap de terminationOrdered By: Hugo Power on 11-01-2023 Anion gap [Moles/Vol] 12.9 mmol/L Normal 6.0-15.0 [facility] Comment on above: Performed By: #### B MP, CBC #### [place] [address] [place] Sodium [Moles/volume] in Ser um or PlasmaOrdered By: Hugo Power on 11-01-2023 Sodium [Moles/Vol] 137 mmol/L Normal 136-145 [facility] Comment on above: Performed By: #### B MP, CBC #### [place] [address] [place] Urea nitrogen [Mass/volume] in Serum or PlasmaOrdered By: Hugo Power on 11-01-2023 Urea nitrogen [Mass/Vol] 27 mg/dL High 7-25 [facility] Comment on above: Performed By: #### B MP, CBC #### [facility] [address] [place] [id number] [facility] C Urineon 10-14-2023 Bacteria identified Cx [...] Locations R1: This test was performed at: [facility], [address] [place] [address], [facility] , , [facility] Comment on above: Performed By: #### [id number] #### [facility] [address] [place] [address] URINALYSISOrdered By: Sy Cadena on 10-12-2023 Bilirubin Ql (U) Negative Normal Negativemg/dL [facility] UA Auto SS Clarity (U) Clear (10/12/23 11:18 AM) Normal Clear [facility] UA Auto SS Color (U) Light-Yellow 1 (10/12/23 11:18 AM) Normal Yellow [facility] UA Auto SS Comment on above: Interpretive Data: M icroscopic readings are only performed on those samples that meet specific criteria set forth by [facility]. Glucose Ql (U) 3+ mg/dL Invalid Interpretation Code Negativemg/dL [facility] UA Auto SS Hemoglobin Auto test strip (U) [Mass/Vol] Negative (10/12/23 11:18 AM) Normal Negative [facility] UA Auto SS Ketones Auto test strip Ql (U) Negative Normal Negativemg/dL [facility] UA Auto SS Leukocyte esterase Auto test strip Ql (U) Negative (10/12/23 11:18 AM) Normal Negative [facility] UA Auto SS Nitrite Auto test strip Ql (U) Negative Normal Negativemg/dL [facility] UA Auto SS pH (U) 5.0 *NA* (10/12/23 11:18 AM) Invalid Interpretation Code 5.0 - 9.0 [facility] UA Auto SS Protein Ql (U) Trace mg/dL Invalid Interpretation Code Negativemg/dL [facility] UA Auto SS Specific gravity (U) [Rel density] 1.025 *NA* (10/12/23 11:18 AM) Invalid Interpretation Code 1.005 - 1.030 [facility] UA Auto SS Urobilinogen (U) [Mass/Vol] Negative Normal Negativemg/dL [facility] UA Auto SS URINALYSISOrdered By: Abmer Ngo on 10-12-2023 UA Spec Desc Clean Catch (10/12/23 11:18 AM) Normal [facility] UA Auto SS Urinalysis with Microon 09-22 Bilirubin Ql (U) Negative Normal Negative [facility] Comment on above: Performed By: #### 4 [id number] #### [facility] [address] [place] [address] Clarity (U) Clear Normal Clear [facility] Comment on above: Performed By: #### 4 [id number] #### [facility] [address] [place] [address] Color (U) Light-Yellow Normal Yellow [facility] Comment on above: Result Comment: Micr oscopic readings are only performed on those samples that meet specific criteria set forth by [facility]. Performed By: #### 4 [id number] #### [facility] [address] [place] [address] Glucose Ql (U) 3+ mg/dL Abnormal Negative [facility] Comment on above: Performed By: #### 4 [id number] #### [facility] [address] [place] [address] Hemoglobin Auto test strip (U) [Mass/Vol] Negative Normal Negative [facility] Comment on above: Performed By: #### 4 [id number] #### [facility] [address] [place] [address] Ketones Auto test strip Ql (U) Negative Normal Negative [facility] Comment on above: Performed By: #### 4 [id number] #### [facility] [address] [place] [address] Leukocyte esterase Auto test strip Ql (U) Negative Normal Negative [facility] Comment on above: Performed By: #### 4 [id number] #### [facility] [address] [place] [address] Nitrite Auto test strip Ql (U) Negative Normal Negative [facility] Comment on above: Performed By: #### 4 [id number] #### [facility] [address] [place] [address] pH (U) 5.0 [pH] Invalid Interpretation Code 5.0-9.0 [facility] Comment on above: Performed By: #### 4 [id number] #### [facility] [address] [place] [address] Protein Ql (U) Trace Abnormal Negative [facility] Comment on above: Performed By: #### 4 [id number] #### [facility] [address] [place] [address] Specific gravity (U) [Rel density] 1.025 Invalid Interpretation Code 1.005-1.030 [facility] Comment on above: Performed By: #### 4 [id number] #### [facility] [address] [place] [address] Urobilinogen (U) [Mass/Vol] Negative Normal Negative [facility] Comment on above: Performed By: #### 4 [id number] #### [facility] [address] [place] [address] Type of Urine collection method Clean Catch Normal [facility] Comment on above: Performed By: #### 4 [id number] #### [facility] [address] [place] [address] Ambulatory Visit Summaryon 0 10-11-2023 Ambulatory Visit [...] Appointments Tuesday 11:00 AM EDT With: Where: [address] [address]- Tuesday 8:00 AM EST With: Where: [address] [address]- Tuesday 8:45 AM EST With: Shivani Limon MD Where: [address] [address]- Medications What How Much When [...] choosing us for your care. Kehinde Gómez [facility] Family Medicine Office/Clini c Noteon [...] qWeek, # 12 EA, Refills(s) 0, Pharmacy: [id number], 170.3, cm, 10/11/23 15:26:00 EDT, Height/Length [...] qWeek, # 12 EA, Refills(s) 0, Pharmacy: [facility] #[id number], 170.3, cm, 10/11/23 15:26:00 EDT, Height/Length [...] qWeek, # 12 EA, Refills(s) 0, Pharmacy: [facility], 170.3, cm, 10/11/23 15:26:00 EDT, Height/Length [...] qWeek, # 12 EA, Refills(s) 0, Pharmacy: [id number], 170.3, cm, 10/11/23 15:26:00 EDT, Height/Length [...] [id number] Current (more content not included)... Normal [facility] Comment on above: Result Comment: Elec tronically Signed By: Shivani Limon MD\.br\Date and Time Signed: 10/11/23 15:33 EDT Pre-Visit Planningon 024 Pre-Visit Planning Pre-Visit Planning - From: Modesta Mahmood To: Shivani Limon MD; Sent: 10/10/2023 10:36:27 EDT Subject: Pre-Visit Planning Due Date/Time: 10/10/2023 10:36:00 EDT Caller Name: JOCELYN HUSSEIN; Caller Number: , Pa Dr. Limon. During a pre-visit planning chart review, I noted the following documentation in the medical record: 09/12/2023 [facility] ED Note (page 1 and page 5): [...] feel free to contact me at extension [phone]. Thank you! Modesta Mahmood LPN Clinical Supervisor [place] [address] Extension: [phone] [email or web address] - From: Shivani Limon MD To: Modesta Mahmood; Sent: 10/10/2023 10:49:37 EDT Subject: RE: Pre-Visit Planning Caller Name: JOCELYN HUSSEIN; Caller Number: , M Decubitus ulcer of buttock, stage 1 Normal [facility] Ambulatory Visit Summaryon 0 09-06-2023 Ambulatory Visit [...] AM EDT With: Shivani Limon MD Where: [facility] Invalid Interpretation Code [address] [place] [address]- \.br\ Tuesday 8:45 AM EST \.br\ With: Shivani Limon MD\.br\ Where: [facility] Family Medicine Office/Clini c Noteon 09-06-2023 Family [...] day(s), # 21 tab(s), Refills(s) 0, Pharmacy: [facility] #[id number], 170.3, cm, 09/06/23 7:42:00 EDT, Height/Length Dosing, 101.3, kg, 09/06/23 7:42:00 EDT, Weight Dosing oxycodone, 5 mg = 1 cap(s), Oral, q6hr, PRN for pain, # 28 cap(s), Refills(s) 0, Pharmacy: [facility]/pharmacy #[id number], 170.3, cm, 09/06/23 7:42:00 EDT, Height/Length [...] 12/23/2021 Tobacco (more content not included)... Normal [facility] Comment on above: Result Comment: Elec tronically [...] virus vaccine, inactivated 11/30/2022 Given SARS-CoV-2 (COVID-19) [id number].[id number] 02/01/2022 Recorded influenza virus vaccine, inactivated 01/07/2022 Recorded influenza virus vaccine, inactivated 01/09/2021 Recorded SARS-CoV-2 (COVID-19) mRNA BNT-162b2 vax 12/16/2020 Recorded 2022-05-28: [id number] SARS-CoV-2 (COVID-19) mRNA BNT-162b2 vax 04/25/2020 Recorded 2022-05-28: TPV65 SARS-CoV-2 (COVID-19) mRNA BNT-162b2 vax 04/04/2020 Recorded 2022-05-28: TPV65 pneumococcal 13-valent vaccine 12/21/2019 Recorded influenza virus vaccine, inactivated 12/21/2019 Recorded Normal G[facility]z [facility] Comment on above: Result Comment: Elec tronically Signed By: Chet LOVE, Jennie Christianson\.br\Date and Time Signed: 09/02/23 07:55 EDT Surgical pathology studyon 0 08-22-2023 Surgical pathology study Pathology report.total SEE COMMENT Dermatopathology Report Case: [id number] Authorizing Provider: Jayy Garcia MD PhD Collected: 08/22/2023 [facility] Ordering Location: [facility] Received: 08/22/[address] [place] [address] Pathologist: Nabeel Mckoy MD Specimen: OUTSIDE BLOCK(S)/SLIDE(S), 2 SLIDES, [facility], #[id number] (BX: 07/20/23) Path report.final diagnosis SEE COMMENT 2 SLIDES, [facility], #[id number] (BX: 07/20/23) SKIN, RIGHT NOSE, SHAVE BIOPSY: [...] Tumor block is [facility] original case # [id number] Path report.relevant Hx Shave Tangential/Neoplasm of unspecified behavior of bone, soft tissue, and skin. Solar lentigo vs Lentigo maligna. 1.0 x 1.0 cm hyperpigmented patch. Path report.gross observation SEE COMMENT A. OUTSIDE BLOCK(S)/SLIDE(S). Received for consultation from [facility] are two slides labeled [id number] (Bx: 07/20/23) along with the corresponding pathology report. Path report.microscopic observation The Hematoxylin and Eosin stained sections of the trisected shave specimen reveals poorly nested atypical junctional melanocytes along the dermal-epidermal junction with confluence and pagetoid scatter. There is significant dermal solar elastosis. 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 The received deeper additional step sections were additionally reviewed. [facility] Ambulatory Comment on above: Order Comment: Mater ials Received: 2 SLIDES, [facility], #[id number] (BX: 07/20/23) Consultation Noteon 07-25-19 Consultation Note [id number] #1.00TIFF [facility] Consultation Noteon 07-21-19 Consultation Note [id number]# 1.00TIFF [facility] Ambulatory Visit Summaryon 0 06-30-2023 Ambulatory Visit [...] AM EDT With: Shivani Limon MD Where: [facility] Invalid Interpretation Code [address] [place] [address]- \.br\ Tuesday 8:45 AM EST \.br\ With: Shivani Limon MD\.br\ Where: [facility] Family Medicine Office/Clini c Noteon 06-30-2023 Family [...] qAM, # 90 tab(s), Refills(s) 1, Pharmacy: [facility] #[id number], 170.3, cm, 06/30/23 8:40:00 EDT, Height/Length Dosing, 111.6, kg, 06/30/23 8:40:00 EDT, Weight Dosing metformin, 1,000 mg = 2 tab(s), Oral, BID, # 390 tab(s), Refills(s) 0, Pharmacy: [facility] #6177, 170.3, cm, 06/30/23 8:40:00 EDT, Height/Length [...] virus vaccine, inactivated 11/30/2022 Given SARS-CoV-2 (COVID-19) [id number] 02/01/2022 Recorded influenza virus vaccine, inactivated 01/07/2022 Recorded influenza virus vaccine, inactivated 01/09/2021 Recorded SARS-CoV-2 (COVID-19) mRNA BNT-162b2 vax 12/16/2020 Recorded 2022-05-28: TPV65 SARS-CoV-2 (COVID-19) mRNA BNT-162b2 vax 04/25/2020 Recorded 2022-05-28: TPV65 SARS-CoV-2 (COVID-19) mRNA BNT-162b2 vax 04/04/2020 Recorded 2022-05-28: TPV65 pneumococcal 13-valent vaccine 12/21/2019 Recorded influenza virus vaccine, inactivated 12/21/2019 Recorded Normal [facility] Comment on above: Result Comment: [...] numbers. This can be done either in [place] ([place] or metric measurements. Note that charts and online BMI calculators are available to help you find your BMI quickly and easily without having to do these calculations yourself. To calculate your BMI in [place] ([place] measurements: 1. Measure your weight in [...] for Disease Control and Prevention: www.cdc.gov ? [place] Heart [employer]: www.heart.org ? National Heart, Lung, and Blood [place]: www.nhlbi.nih.gov Summary ? Body mass index (BMI) is a number that is calculated from a person's weight and height. ? BMI may help estimate how much of a person's weight is composed of fat. BMI can help identify those who may be at higher risk for certain medical problems. ? BMI can be measured using Fijian measurements or metric measurements. ? BMI charts are used to identify whether you are underweight, normal weight, overweight, or obese. This information is not intended to replace advice given to you by your health care provider. Make sure you discuss any questions you have with your health care provider. Document Revised: 10/31/2019 Document Reviewed: 09/07/2019 [employer] Patient Education ? 2022 [employer] Normal [facility] Ambulatory Visit Summaryon 0 06-23-2023 Ambulatory Visit [...] Appointments Tuesday 8:00 AM EST With: Where: [facility] Invalid Interpretation Code [address] [place] [address]- \.br\ Someone Will Contact You Regarding These Appointments\.br \ [facility] External Ambulatory Referral, Orthopaedics, Dr. Marmolejo, 06/23/23 8:25:00 EDT, Type 2 diabetes mellitus with hyperlipidemia [facility] Ambulatory Visit Summary JOCELYN HUSSEIN :1955 Visit [...] Appointments Tuesday 8:00 AM EST With: Where: [facility] Invalid Interpretation Code [address] [place] [address]- \.br\ Someone Will Contact You Regarding These Appointments\.br \ [facility] External Ambulatory Referral, Orthopaedics, Dr. Marmolejo, 06/23/23 8:25:00 EDT, Type 2 diabetes mellitus with hyperlipidemia [facility] CBC w/ Auto Diffon 4 Basophils/100 WBC (Bld) 0.9 % Normal 0.0-2.0 [facility] Comment on above: Performed By: #### 2 943169, 4032048, 268293080, 07560798, 14422358, 1676315, 52240715, 4630535 ####[facility] [address] [place] [address] Basophils/Leukocytes Auto (Bld) [Pure # fraction] 0.1 E9/L Normal 0.0-0.2 [facility] Comment on above: Performed By: #### 2 607940, 1079383, 254629296, 33829950, 07225044, 9877206, 18167699, 7731560 ####[facility] [address] [place] [address] Eosinophils (Bld) [#/Vol] 0.6 E9/L High 0.0-0.5 [facility] Comment on above: Performed By: #### 2 646376, 9506223, 657614089, 26648652, 48147276, 9888106, 42609685, 8683882 ####[place] [address] [place] [address] Eosinophils/100 WBC (Bld) 7.7 % Normal 0.0-8.0 [facility] Comment on above: Performed By: #### 2 025684, 2412705, 475699806, 71802159, 41335647, 4954804, 82844221, 8521295 ####[address] [address] Erythrocyte distribution width (RBC) [Ratio] 13.9 % Normal 10.9-14.2 [facility] Comment on above: Performed By: #### 2 766304, 5103116, 861231489, 64169325, 48515857, 6581271, 06713476, 3128798 ####[address] [address] Hematocrit (Bld) [Volume fraction] 42.0 % Normal 37.7-49.0 [facility] Comment on above: Performed By: #### 2 137610, 3208996, 830461496, 36210301, 53340944, 0484282, 15602699, 6989097 ####[address] [address] Hemoglobin (Bld) [Mass/Vol] 13.9 g/dL Normal 13.5-17.5 [facility] Comment on above: Performed By: #### 2 963361, 5238417, 857707059, 66962299, 04690073, 5464384, 22746879, 4191618 ####[address] [address] Lymphocytes (Bld) [#/Vol] 1.7 E9/L Normal 1.0-4.0 [facility] Comment on above: Performed By: #### 2 691171, 1218842, 617153311, 01852026, 24489277, 8178473, 30332389, 5859706 ####[address] [address] Lymphocytes/100 WBC (Bld) 23.9 % Normal 14.0-50.0 [facility] Comment on above: Performed By: #### 2 949413, 1455213, 406909362, 50195637, 36780089, 6658428, 29109807, 4996799 ####[address] [address] MCH (RBC) [Entitic mass] 30.8 pg Normal 27.0-34.0 [facility] Comment on above: Performed By: #### 2 849828, 7503021, 907456068, 06299931, 25271081, 4435133, 92151283, 7704730 ####[address] [address] MCHC (RBC) [Mass/Vol] 33.1 g/dL Normal 31.4-36.0 [facility] Comment on above: Performed By: #### 2 005284, 6724015, 593181096, 37934433, 40630415, 3650544, 27401854, 7149442 ####[address] [address] MCV (RBC) [Entitic vol] 93.0 fL Normal 80.0-100.0 [facility] Comment on above: Performed By: #### 2 570550, 2103594, 032480390, 48039730, 42027959, 0828570, 68840343, 8888878 ####[place] [address] [place] [address] Monocytes (Bld) [#/Vol] 0.8 E9/L Normal 0.2-1.0 [facility] Comment on above: Performed By: #### 2 506268, 0614728, 122637804, 92694320, 48152078, 3462526, 89525037, 6688157 ####[address] [address] Neutrophils (Bld) [#/Vol] 4.1 E9/L Normal 2.0-7.5 [facility] Comment on above: Performed By: #### 2 521724, 1562038, 698960419, 72954609, 43366494, 0317223, 22493590, 5289497 ####[address] [address] Neutrophils/100 WBC (Bld) 56.6 % Normal 36.0-75.0 [facility] Comment on above: Performed By: #### 2 271659, 4845702, 538656737, 85519542, 23940028, 3156019, 86218150, 4284219 ####[address] [address] Platelet mean volume (Bld) [Entitic vol] 8.6 fL Normal 6.4-10.8 [facility] Comment on above: Performed By: #### 2 324827, 9291609, 875853549, 62470983, 90779649, 4763850, 36598777, 1131828 ####[place] [address] [place] [address] Platelets (Bld) [#/Vol] 193.0 E9/L Normal 150.0-500.0 [facility] Comment on above: Performed By: #### 2 316129, 0063460, 701698499, 41007891, 28688570, 0697865, 56586366, 5463275 ####[facility] [address] [place] [address] RBC (Bld) [#/Vol] 4.5 E12/L Normal 4.3-5.9 [facility] Comment on above: Performed By: #### 2 427563, 3455786, 808730830, 93299913, 99493211, 4126398, 70341198, 5855330 ####[facility] [address] [place] [address] WBC corrected for nucl RBC Auto (Bld) [#/Vol] 7.3 E9/L Normal 4.0-11.0 [facility] Comment on above: Performed By: #### 2 343539, 0394679, 422030631, 38955966, 06414396, 2042149, 67109070, 4361737 ####[facility] [address] [place] [address] CHEMISTRYOrdered By: SYSTEM SYSTEM on 06-23-2023 Albumin [...] for this result was chemiluminescence using [employer]'s Access Hybritech PSA reagent. Protein [Mass/Vol] 7.4 [...] (Bld) [Mass fraction] 10.0 % High <=5.9% [facility] ChemAutoSS CMPon 06-23-2023 Albumin [Mass/Vol] 4.3 g/dL Normal 3.3-5.0 [facility] Comment on above: Performed By: #### 2 824685, 8832934, 372272408, 16833030, 46078646, 3588578, 80714297, 3269843 ####[facility] [address] [place] [address] Albumin/Globulin (S) [Mass conc ratio] 1.4 Normal 1.1-2.2 [facility] Comment on above: Performed By: #### 2 957586, 4574359, 737084658, 44143058, 37118376, 9814346, 95971234, 3545915 ####[facility] [address] [place] [address] ALP [Catalytic activity/Vol] 97 Int._Unit/L Normal 21-98 [facility] Comment on above: Performed By: #### 2 790748, 2773055, 905330236, 89429040, 31001232, 7743119, 55249322, 8087604 ####[facility] [address] [place] [address] ALT No additional P-5'-P [Catalytic activity/Vol] 17 Int._Unit/L Normal 6-46 [facility] Comment on above: Performed By: #### 2 398547, 4772235, 642039422, 06144479, 10485492, 5896003, 19643892, 9078470 ####[facility] [address] [place] [address] AST [Catalytic activity/Vol] 17 Int._Unit/L Normal 5-43 [facility] Comment on above: Performed By: #### 2 847167, 1044672, 156937958, 11057639, 80667971, 3582625, 38189070, 6222692 ####[facility] [address] [place] [address] Bilirubin [Mass/Vol] 0.7 mg/dL Normal 0.0-1.1 [facility] Comment on above: Performed By: #### 2 663726, 6841527, 604442105, 69159916, 17538466, 5864712, 12128037, 8000797 ####[facility] [address] [place] [address] Globulin (S) [Mass/Vol] 3.1 g/dL Normal 1.4-4.0 [facility] Comment on above: Performed By: #### 2 008437, 4718978, 272963201, 55834881, 77873163, 4583496, 22937670, 6273072 ####[facility] [address] [place] [address] Protein [Mass/Vol] 7.4 g/dL Normal 6.0-7.8 [facility] Comment on above: Performed By: #### 2 614385, 1307226, 045060025, 67872346, 33253041, 9926262, 39810031, 0893734 ####[facility] [address] [place] [address] Anion gap [Moles/Vol] 15 mmol/L Normal 6-16 [facility] Comment on above: Performed By: #### 2 868893, 2838040, 263050997, 90203514, 00942791, 2403505, 87099863, 5689979 ####[facility] [address] [place] [address] Calcium [Mass/Vol] 9.7 mg/dL Normal 8.9-11.1 [facility] Comment on above: Performed By: #### 2 689956, 5631360, 544148247, 34982970, 88123938, 8681057, 35335187, 8168741 ####[facility] [address] [place] [address] Chloride [Moles/Vol] 104 mmol/L Normal 101-111 [facility] Comment on above: Performed By: #### 2 286084, 2016768, 262988786, 94761835, 75266780, 9557109, 61055154, 1297694 ####[facility] [address] [place] [address] CO2 [Moles/Vol] 23 mmol/L Normal 21-31 [facility] Comment on above: Performed By: #### 2 191928, 7317519, 611626224, 22042427, 21277202, 8251857, 77859188, 7641134 ####[facility] [address] [place] [address] Creatinine [Mass/Vol] 1.4 mg/dL High 0.5-1.3 [facility] Comment on above: Performed By: #### 2 556810, 4164533, 867823644, 14316831, 55642826, 2961770, 20232517, 4869201 ####[facility] [address] [place] [address] Glucose [Mass/Vol] 217 mg/dL High 55-199 [facility] Comment on above: Performed By: #### 2 193465, 8720761, 397957764, 86727351, 88324396, 9504559, 98791043, 0075189 ####[facility] [address] [place] [address] Potassium [Moles/Vol] 4.7 mmol/L Normal 3.5-5.3 [facility] Comment on above: Performed By: #### 2 424226, 8402233, 136959377, 69270582, 82053535, 1007525, 31144918, 5356687 ####[facility] [facility] [address] [place] [address] Sodium [Moles/Vol] 137 mmol/L Normal 135-145 [facility] Comment on above: Performed By: #### 2 188415, 7809279, [id number], 74825678, 62483051, 7006173, 87820475, 8860687 ####[facility] [address] [place] [address] Urea nitrogen [Mass/Vol] 33 mg/dL High 5-21 [facility] Comment on above: Performed By: #### 2 120914, 9923415, [id number], 48042208, 73286335, 6407698, 40224520, 3559539 ####[facility] [address] [place] [address] Urea nitrogen/Creatinine [Mass ratio] 24 No Units High 10-20 [facility] Comment on above: Performed By: #### 2 470468, 8397379, [id number], 26907242, 86845447, 8597296, 37969866, 8148958 ####[facility] [address] [place] [address] Family Medicine Office/Clini c Noteon 06-23-2023 Family [...] E&M of Est. Patient Moderate 30-39 Min 09078 [facility] External Ambulatory Referral [facility] External Ambulatory Referral HgbA1c Influenza immunization administered [...] E&M of Est. Patient Moderate 30-39 Min 25449 [facility] External Ambulatory Referral [facility] External Ambulatory Referral Uric Acid 3. Stage 3a chronic kidney disease (CKD) (N18.31: Chronic kidney disease, stage 3a) - Will recheck today Ordered: Body Mass Index (BMI) documented 3008F CBC w/ Auto Diff Complex E&M Add on G2211 Comprehensive Metabolic Panel Current tobacco non-user 1036F Depression Screening Negative 3352F E&M of Est. Patient Moderate 30-39 Min 87328 [facility] External Ambulatory Referral [facility] External Ambulatory Referral HgbA1c Influenza immunization administered [...] E&M of Est. Patient Moderate 30-39 Min 61491 [facility] External Ambulatory Referral [facility] External Ambulatory Referral HgbA1c Influenza immunization administered [...] E&M of Est. Patient Moderate 30-39 Min 23755 [facility] External Ambulatory Referral [facility] External Ambulatory Referral HgbA1c Influenza immunization administered or previously received 4274F Lipid Panel Microalbumin Level Urine Most recent diastolic blood pressure 80-89 mm Hg 3079F Patient s (more content not included)... Normal [facility] Comment on above: Result Comment: Elec tronically [...] Normal 4.0 - 11.0 E9/L Remisol Heme [id number] 06-23-2023 HbA1c (Bld) [Mass fraction] 10.0 % High <=5.9 [facility] Comment on above: Performed By: #### 2 585471, 4528303, 834983223, 39746980, 32149020, 4485608, 82655998, 5322686 ####[facility] [address] [place] [address] Lipid Panelon 06-23-2023 VLDL UTC Abnormal 7-40 [facility] Comment on above: Result Comment: 'ELLI BLE TO REPORT. TRIG > 400 mg/dl' Result verified by Discern Rule. Performed result [facility] (Unable to Calculate) was sent as an Alpha code due the inability to calculate a valid numeric value. Performed By: #### 2 982567, 9916357, [id number], 72349799, 81953054, 5953410, 03594889, 1861844 ####[facility] [address] [place] [address] Cholesterol [Mass/Vol] 171 mg/dL Normal 120-200 [facility] Comment on above: Performed By: #### 2 485147, 7898490, 014114453, 21411260, 30522354, 7809671, 07959690, 7321684 ####[facility] [address] [place] [address] Cholesterol in HDL [Mass/Vol] 32 mg/dL Invalid Interpretation Code [facility] Comment on above: Result Comment: '>= 60 LOW RISK' '<= 40 HIGH RISK' Performed By: #### 2 370399, 1232933, [id number], 34875921, 93195373, 4116525, 98610961, 3594822 ####[facility] [address] [place] [address] Cholesterol in LDL [Mass/Vol] 73 mg/dL Normal <=129 [facility] Comment on above: Performed By: #### 2 480342, 5962715, 697879868, 53061500, 30116164, 6180277, 88713010, 3285399 ####[facility] [address] [place] [address] Triglyceride [Mass/Vol] 431 mg/dL High <=149 [facility] Comment on above: Performed By: #### 2 981273, 5151924, 043492199, 61920074, 03289151, 3116001, 51463263, 3984236 ####[facility] [address] [place] [address] PSA Screen, Totalon 06-23-19 24 Prostate specific Ag [Mass/Vol] 3.5 ng/mL Normal 0.1-3.5 [facility] Comment on above: Result Comment: The concentration of PSA determined by different manufacturers can vary due to differences in assay methods and reagent specificity. Values obtained from different assay methods cannot be used interchangeably. The methodology used for this result was chemiluminescence using [employer]'s Access Hybritech PSA reagent. Performed By: #### 2 268488, 8617251, 919552099, 76461643, 59772959, 6364887, 90721560, 6200168 ####[facility] [address] [place] [address] Patient Educationon 06-23-19 24 Patient Education Nutrition [...] numbers. This can be done either in Fijian ([place] or metric measurements. Note that charts and online BMI calculators are available to help you find your BMI quickly and easily without having to do these calculations yourself. To calculate your BMI in [place] ([place] measurements: 1. Measure your weight in [...] for Disease Control and Prevention: www.cdc.gov ? [place] [employer]: www.heart.org ? National Heart, Lung, and Blood [place]: www.nhlbi.nih.gov Summary ? Body mass index (BMI) is a number that is calculated from a person's weight and height. ? BMI may help estimate how much of a person's weight is composed of fat. BMI can help identify those who may be at higher risk for certain medical problems. ? BMI can be measured using Fijian measurements or metric measurements. ? BMI charts are used to identify whether you are underweight, normal weight, overweight, or obese. This information is not intended to replace advice given to you by your health care provider. Make sure you discuss any questions you have with your health care provider. Document Revised: 10/31/2019 Document Reviewed: 09/07/2019 [employer] Patient Education ? 2022 CUPR. Normal [facility] Physician Referralon 024 Physician Referral [id number] 4#1.00TIFF Normal [facility] Physician Referral [id number] 2#1.00TIFF Normal [facility] TSH With T4fr Reflexon 06-22 TSH Qn 2.61 m[IU]/L Normal 0.34-5.60 [facility] Comment on above: Performed By: #### 2 891212, 5759146, 421552528, 36320086, 88156135, 3842684, 42987125, 8117215 ####[facility] [address] [place] [address] U Microalbon 06-23-2023 Albumin DL <= 20 mg/L (U) [Mass/Vol] 15.0 mg/dL High 0.0-1.9 [facility] Comment on above: Order Comment: Jasmine barbour office Performed By: #### 1 6057541, [id number] ####[facility] [address] [place] [address] U Protein/Creat Ratioon Protein/Creatinine (U) [Ratio] 37.90 mg/gm Cr Normal .00-200.00 [facility] Comment on above: Performed By: #### 1 7962401, [id number] ####[facility] [address] [place] [address] U Creatinine 82.0 mg/dL Invalid Interpretation Code [facility] Comment on above: Performed By: #### 1 0478045, [id number] ####[facility] [address] [place] [address] Ur Total Protein 31.1 mg/dL Invalid Interpretation Code [facility] Comment on above: Performed By: #### 1 7790364, [id number] ####[address] [address] Uric Acidon 06-23-2023 Urate (U) [Mass/Vol] 4.6 mg/dL Normal 2.2-7.4 [facility] Comment on above: Performed By: #### 2 067041, 7324060, 936983904, 70010964, 57783815, 9391325, 09295358, 2093210 ####[facility] [address] [place] [address] eGFRon 06-23-2023 eGFR 54 mL/min/1.73 m2 Low >=59 [facility] Comment on above: Order Comment: Order added by Discern Expert. Performed By: #### 2 902347, 8901524, 487943247, 78713536, 39611120, 3866829, 41038359, 6129123 ####[facility] [address] [place] [address] Lab Reportson 04-26-2023 Lab Reports [id number] #1.00TIFF Normal [facility] CHEMISTRYOrdered By: Ro davidson on 12-01-2022 Albumin DL <= 20 mg/L (U) [Mass/Vol] 101.6 microgram/mL High 0.0 - 19.0 mcg/mL [facility] Remisol Albumin Elph (U) [Mass fraction] 19.4 mg/dL Invalid Interpretation Code [facility] Remisol Comment on above: Interpretive Data: T he reference range and other method performance specifications have not been established for this test; results should be integrated into the clinical context for interpretation. Creatinine (U) [Mass/Vol] 135.6 mg/dL Invalid Interpretation Code [facility] Remisol Comment on above: Interpretive Data: T he reference range and other method performance specifications have not been established for this test; results should be integrated into the clinical context for interpretation. U Prot/Creat Ratio 143.10 mg/gm Cr Normal 0.00 - 200.00 mg/gm Cr [facility] Remisol CBC AUTO DIFFon 06-07-2022 BASO # 0.0 103/ul Normal 0.0-0.1 [facility] Comment on above: Performed By: #### C BC #### [facility] [address] [place] [address] Dr. Emiliano Sheehan Basophils/100 WBC (Bld) 0.6 % Normal 0.2-2.0 [facility] Comment on above: Performed By: #### C BC #### [facility] [address] [place] [address] Dr. Emiliano Sheehan EO # 0.5 103/ul Normal 0.0-0.7 [facility] Comment on above: Performed By: #### C BC #### [facility] [address] [place] [address] Dr. Emiliano Sheehan Eosinophils/100 WBC (Bld) 7.6 % Critically high 0.9-7.0 [facility] Comment on above: Performed By: #### C BC #### [facility] [address] [place] [address] Dr. Emiliano Sheehan Erythrocyte distribution width (RBC) [Ratio] 12.3 % Normal 11.0-15.0 [facility] Comment on above: Performed By: #### C BC #### [facility] [address] [place] [address] Dr. Emiliano Sheehan Hematocrit (Bld) [Volume fraction] 40.1 % Critically low 42.0-54.0 [facility] Comment on above: Performed By: #### C BC #### [facility] [address] [place] [address] Dr. Emiliano Sheehan Hemoglobin (Bld) [Mass/Vol] 13.4 g/dL Critically low 14.0-18.0 [facility] Comment on above: Performed By: #### C BC #### [facility] [address] [place] [address] Dr. Emiliano Sheehan IG # 0.03 10e3/ul Normal 0.00-0.03 [facility] Comment on above: Performed By: #### C BC #### [facility] [address] [place] [address] Dr. Emiliano Sheehan IG % 0.5 % Normal 0.0-0.5 [facility] Comment on above: Performed By: #### C BC #### [facility] [address] [place] [address] Dr. Emiliano Sheehan LYMPH # 1.9 103/ul Normal 1.2-3.8 [facility] Comment on above: Performed By: #### C BC #### [facility] [address] [place] [address] Dr. Emiliano Sheehan Lymphocytes/100 WBC (Bld) 29.5 % Normal 20.5-60.0 [facility] Comment on above: Performed By: #### C BC #### [facility] [address] [place] [address] Dr. Emiliano Sheehan MANUAL DIFF REQ NO Normal [facility] Comment on above: Performed By: #### C BC #### [facility] [address] [place] [address] Dr. Emiliano Sheehan MCH (RBC) [Entitic mass] 30.4 pg Normal 25.9-34.0 [facility] Comment on above: Performed By: #### C BC #### [facility] [address] [place] [address] Dr. Emiliano Sheehan MCHC (RBC) [Mass/Vol] 33.4 g/dL Normal 29.9-35.2 [facility] Comment on above: Performed By: #### C BC #### [facility] [address] [place] [address] Dr. Emiliano Sheehan MCV (RBC) [Entitic vol] 90.9 fL Normal 80.0-94.0 [facility] Comment on above: Performed By: #### C BC #### [facility] [address] [place] [address] Dr. Emiliano Sheehan MONO # 0.6 103/ul Normal 0.3-0.8 [facility] Comment on above: Performed By: #### C BC #### [facility] [address] [place] [address] Dr. Emiliano Sheehan Monocytes/100 WBC (Bld) 9.6 % Normal 1.7-12.0 [facility] Comment on above: Performed By: #### C BC #### [facility] [address] [place] [address] Dr. Emiliano Sheehan NEUT # 3.4 103/ul Normal 1.4-6.5 [facility] Comment on above: Performed By: #### C BC #### [facility] [address] [place] [address] Dr. Emiliano Sheehan Neutrophils/100 WBC (Bld) 52.2 % Normal 43.0-75.0 [facility] Comment on above: Performed By: #### C BC #### [facility] [address] [place] [address] Dr. Emiliano Sheehan Platelet mean volume (Bld) [Entitic vol] 9.0 fL Critically low 9.5-13.5 [facility] Comment on above: Performed By: #### C BC #### [facility] [address] [place] [address] Dr. Emiliano Sheehan PLT 205 103/ul Normal 150-450 [facility] Comment on above: Performed By: #### C BC #### [facility] [address] [place] [address] Dr. Emiliano Sheehan RBC 4.41 106/ul Critically low 4.70-6.10 [facility] Comment on above: Performed By: #### C BC #### [facility] [address] [place] [address] Dr. Emiliano Sheehan WBC 6.5 103/ul Normal 4.0-11.0 [facility] Comment on above: Performed By: #### C BC #### [facility] [address] [place] [address] Dr. Emiliano Sheehan FREE T3on 06-07-2022 FREE T3 2.37 pg/mlL Normal 2.18-3.98 [facility] Comment on above: Performed By: #### P SARIAH, FT4 #### [facility] [address] [place] [address] Dr. Emiliano Sheehan FREE T4on 06-07-2022 Free T4 [Mass/Vol] 1.37 ng/dL Normal 0.76-1.46 [facility] Comment on above: Performed By: #### P SARIAH, FT4 #### [facility] [address] [place] [address] Dr. Emiliano Sheehan GLYCOHEMOGLOBIN A1Con 2022 ADA RECOMMENDATION SEE BELOW Normal [facility] Comment on above: Result Comment: ADA RECOMMENDED LIMIT 4.0 - 6.0 ADA THERAPEUTIC TARGET < 7.0 ACTION SUGGESTED > 7.0 Performed By: #### P SAD, FT4 #### [facility] [address] [place] [address] Dr. Emiliano Sheehan Glucose [Mass/Vol] 206 mg/dL Normal [facility] Comment on above: Performed By: #### P SARIAH, FT4 #### [facility] [address] [address] [address] Emiliano Sheehan HbA1c (Bld) [Mass fraction] 8.8 % Critically high 4.5-6.2 [facility] Comment on above: Performed By: #### P SAD, FT4 #### [facility] [address] [place] [address] Dr. Emiliano Sheehan LIPID PROFILEon 06-07-2022 CHOL-HDL RATIO NORM SEE BELOW Normal [facility] Comment on above: Result Comment: 3.3 - 4.4 LOW RISK 4.4 - 7.1 AVERAGE RISK 7.1 - 11.0 MODERATE RISK >11.0 HIGH RISK Performed By: #### P SAD, FT4 #### [facility] [address] [place] [address] Dr. Emiliano Sheehan Cholesterol [Mass/Vol] 169 mg/dL Normal <=200 [facility] Comment on above: Performed By: #### P SAD, FT4 #### [facility] [address] [place] [address] Dr. Emiliano Sheehan Cholesterol in HDL [Mass/Vol] 37 mg/dL Critically low 40-60 [facility] Comment on above: Performed By: #### P SAD, FT4 #### [facility] [address] [place] [address] Dr. Emiliano Sheehan Cholesterol in LDL [Mass/Vol] 69.4 mg/dL Normal [facility] Comment on above: Performed By: #### P SAD, FT4 #### [facility] [address] [place] [address] Dr. Emiliano Sheehan Cholesterol.total/Chol esterol in HDL [Mass ratio] 4.6 {ratio} Normal [facility] Comment on above: Performed By: #### P SAD, FT4 #### [facility] [address] [place] [address] Dr. Emiliano Sheehan HDL NORMAL > or = 60 mg/dl - LOW CARDIOVASCULAR RISK <40 mg/dl - HIGH CARDIOVASCULAR RISK Normal [facility] Comment on above: Performed By: #### P SAD, FT4 #### [facility] [address] [address] [address] Eimliano Sheehan LDL CALC NORMAL SEE BELOW Normal [facility] Comment on above: Result Comment: <100 mg/dl OPTIMAL 100 - 129 mg/dl NEAR OR ABOVE OPTIMAL 130 - 159 mg/dl BORDERLINE HIGH 160 - 189 mg/dl HIGH >190 mg/dl VERY HIGH Performed By: #### P SAD, FT4 #### [facility] [address] [address] [address] Emiliano Sheehan Triglyceride [Mass/Vol] 313 mg/dL Critically high <=150 [facility] Comment on above: Performed By: #### P SAD, FT4 #### [facility] [address] [address] [address] Emiliano Sheehan VLDL CALC 62.6 mg/dL Normal [facility] Comment on above: Performed By: #### P SAD, FT4 #### [facility] [address] [place] [address] Dr. Emiliano Sheehan PROF 14(COMP METB)on 023 Albumin [Mass/Vol] 4.0 g/dL Normal 3.4-5.0 [facility] Comment on above: Performed By: #### L IPID, CMP, FT3, URIC #### [facility] [address] [place] [address] Dr. Emiliano Sheehan Albumin/Globulin [Mass ratio] 1.1 {ratio} Normal [facility] Comment on above: Performed By: #### L IPID, CMP, FT3, URIC #### [facility] [address] [place] [address] Dr. Emiliano Sheehan ALP [Catalytic activity/Vol] 86 U/L Normal 46-116 [facility] Comment on above: Performed By: #### L IPID, CMP, FT3, URIC #### [facility] [address] [place] [address] Dr. Emiliano Sheehan ALT [Catalytic activity/Vol] 35 U/L Normal 16-63 [facility] Comment on above: Performed By: #### L IPID, CMP, FT3, URIC #### [facility] [address] [place] [address] Dr. Emiliano Sheehan Anion gap [Moles/Vol] 12.9 mmol/L Normal [facility] Comment on above: Performed By: #### L IPID, CMP, FT3, URIC #### [facility] [address] [address] [address] Emiliano Sheehan AST [Catalytic activity/Vol] 17 U/L Normal 15-37 [facility] Comment on above: Performed By: #### L IPID, CMP, FT3, URIC #### [facility] [address] [address] [address] Emiliano Sheehan Bilirubin [Mass/Vol] 0.4 mg/dL Normal 0.2-1.0 [facility] Comment on above: Performed By: #### L IPID, CMP, FT3, URIC #### [facility] [address] [place] [address] Dr. Emiliano Sheehan Calcium [Mass/Vol] 9.1 mg/dL Normal 8.5-10.1 [facility] Comment on above: Performed By: #### L IPID, CMP, FT3, URIC #### [facility] [address] [address] [address] Emiliano Sheehan Chloride [Moles/Vol] 103 mmol/L Normal 98-107 [facility] Comment on above: Performed By: #### L IPID, CMP, FT3, URIC #### [facility] [address] [place] [address] Dr. Emiliano Sheehan CO2 [Moles/Vol] 25.6 mmol/L Normal 21.0-32.0 [facility] Comment on above: Performed By: #### L IPID, CMP, FT3, URIC #### [facility] [address] [address] [address] Emiliano Sheehan Creatinine [Mass/Vol] 1.28 mg/dL Normal 0.70-1.30 [facility] Comment on above: Performed By: #### L IPID, CMP, FT3, URIC #### [facility] [address] [address] [address] Emiliano Sheehan EGFR-AF LUXEMBOURGER >60 Normal >=60 [facility] Comment on above: Performed By: #### L IPID, CMP, FT3, URIC #### [facility] [address] [place] [address] Dr. Emiliano Sheehan EGFR-NON AF LUXEMBOURGER 56 mL/min/1.73m2 Critically low >=60 [facility] Comment on above: Performed By: #### L IPID, CMP, FT3, URIC #### [facility] [address] [place] [address] Dr. Emiliano Sheehan Globulin (S) [Mass/Vol] 3.7 g/dL Normal [facility] Comment on above: Performed By: #### L IPID, CMP, FT3, URIC #### [facility] [address] [place] [address] Dr. Emiliano Sheehan Glucose [Mass/Vol] 210 mg/dL Critically high 74-106 [facility] Comment on above: Performed By: #### L IPID, CMP, FT3, URIC #### [facility] [address] [place] [address] Dr. Emiliano Sheehan Potassium [Moles/Vol] 4.5 mmol/L Normal 3.5-5.1 [facility] Comment on above: Performed By: #### L IPID, CMP, FT3, URIC #### [facility] [address] [place] [address] Dr. Emiliano Sheehan Protein [Mass/Vol] 7.7 g/dL Normal 6.4-8.2 [facility] Comment on above: Performed By: #### L IPID, CMP, FT3, URIC #### [facility] [address] [place] [address] Dr. Emiliano Sheehan Sodium [Moles/Vol] 137 mmol/L Normal 136-145 [facility] Comment on above: Performed By: #### L IPID, CMP, FT3, URIC #### [facility] [address] [place] [address] Dr. Emiliano Sheehan Urea nitrogen [Mass/Vol] 19.0 mg/dL Critically high 7.0-18.0 [facility] Comment on above: Performed By: #### L IPID, CMP, FT3, URIC #### [facility] [address] [place] [address] Dr. Emiliano Sheehan Urea nitrogen/Creatinine [Mass ratio] 14.8 mg/mg Normal [facility] Comment on above: Performed By: #### L IPID, CMP, FT3, URIC #### [facility] [address] [place] [address] Dr. Emiliano Sheehan URIC ACID SERUMon 06-07-2022 Urate [Mass/Vol] 3.5 mg/dL Normal 3.5-7.2 [facility] Comment on above: Performed By: #### P SAD, FT4 #### [facility] [address] [place] [address] Dr. Emiliano Sheehan FREE T3on 02-11-2022 FREE T3 2.33 pg/mlL Normal 2.18-3.98 [facility] Comment on above: Performed By: #### P SAD, FT4 #### [facility] [address] [place] [address] Dr. Emiliano Sheehan FREE T4on 02-11-2022 Free T4 [Mass/Vol] 1.20 ng/dL Normal 0.76-1.46 [facility] Comment on above: Performed By: #### F T4 #### [facility] [address] [place] [address] Dr. Emiliano Sheehan TSHon 02-11-2022 TSH 2.124 uIU/mL Normal 0.358-3.740 [facility] Comment on above: Performed By: #### P SAD, FT4 #### [facility] [address] [place] [address] Dr. Emiliano Sheehan POINT OF CARE GLUCOSEon Glucose [Mass/Vol] 205 mg/dL Critically high 74-106 [facility] Comment on above: Performed By: #### P SAD, FT4 #### [facility] [address] [place] [address] Dr. Emiliano Sheehan Covid-19 PCR (CVDTB)on SARS-CoV-2 (COVID-19) RNA LUIS+probe Ql (Unsp spec) Not detected Normal NOT DETECTED [facility] Comment on above: Result Comment: This test is not yet approved or cleared by the [place] FDA. When there are no FDA-approved or cleared tests available, and other criteria are met, FDA can make tests available under an emergency access mechanism called an Emergency Use Authorization (EUA). The EUA for this test is supported by the [place] of Health and Human Service's (HHS's) declaration [...] SARS-CoV-2. Performed By: #### C VDTBH #### [facility] [address] [place] [address] Dr. Emiliano Sheehan GLYCOHEMOGLOBIN A1Con 2021 ADA RECOMMENDATION SEE BELOW Normal [facility] Comment on above: Result Comment: ADA RECOMMENDED LIMIT 4.0 - 6.0 ADA THERAPEUTIC TARGET < 7.0 ACTION SUGGESTED > 7.0 Performed By: #### P SAD, FT4 #### [facility] [address] [place] [address] Dr. Emiliano Sheehan Glucose [Mass/Vol] 177 mg/dL Normal [facility] Comment on above: Performed By: #### P SAD, FT4 #### [facility] [address] [place] [address] Dr. Emiliano Sheehan HbA1c (Bld) [Mass fraction] 7.8 % Critically high 4.5-6.2 [facility] Comment on above: Performed By: #### P SAD, FT4 #### [facility] [address] [place] [address] Dr. Emiliano Sheehan CBC AUTO DIFFon 12-01-2021 BASO # 0.0 103/ul Normal 0.0-0.1 [facility] Comment on above: Performed By: #### P SAD, FT4 #### [facility] [address] [place] [address] Dr. Emiliano Sheehan Basophils/100 WBC (Bld) 0.5 % Normal 0.2-2.0 [facility] Comment on above: Performed By: #### P SAD, FT4 #### [facility] [address] [place] [address] Dr. Emiliano Sheehan EO # 0.5 103/ul Normal 0.0-0.7 [facility] Comment on above: Performed By: #### P SAD, FT4 #### [facility] [address] [place] [address] Dr. Emiliano Sheehan Eosinophils/100 WBC (Bld) 5.7 % Normal 0.9-7.0 [facility] Comment on above: Performed By: #### P SARIAH, FT4 #### [facility] [address] [place] [address] Dr. Emiliano Sheehan Erythrocyte distribution width (RBC) [Ratio] 12.8 % Normal 11.0-15.0 [facility] Comment on above: Performed By: #### P SARIAH, FT4 #### [facility] [address] [place] [address] Dr. Emiliano Sheehan Hematocrit (Bld) [Volume fraction] 39.5 % Critically low 42.0-54.0 [facility] Comment on above: Performed By: #### P SAD, FT4 #### [facility] [address] [place] [address] Dr. Emiliano Sheehan Hemoglobin (Bld) [Mass/Vol] 12.9 g/dL Critically low 14.0-18.0 [facility] Comment on above: Performed By: #### P SAD, FT4 #### [facility] [address] [place] [address] Dr. Emiliano Sheehan IG # 0.03 10e3/ul Normal 0.00-0.03 [facility] Comment on above: Performed By: #### P SAD, FT4 #### [facility] [address] [address] [address] Emiliano Sheehan IG % 0.3 % Normal 0.0-0.5 [facility] Comment on above: Performed By: #### P SARIAH, FT4 #### [facility] [address] [place] [address] Dr. Emiliano Sheehan LYMPH # 2.3 103/ul Normal 1.2-3.8 [facility] Comment on above: Performed By: #### P SARIAH, FT4 #### [facility] [address] [place] [address] Dr. Emiliano Sheehan Lymphocytes/100 WBC (Bld) 26.7 % Normal 20.5-60.0 [facility] Comment on above: Performed By: #### P SARIAH, FT4 #### [facility] [address] [place] [address] Dr. Emiliano Sheehan MANUAL DIFF REQ NO Normal [facility] Comment on above: Performed By: #### P SARIAH, FT4 #### [facility] [address] [place] [address] Dr. Emiliano Sheehan MCH (RBC) [Entitic mass] 31.2 pg Normal 25.9-34.0 [facility] Comment on above: Performed By: #### P SARIAH, FT4 #### [facility] [address] [place] [address] Dr. Emiliano Sheehan MCHC (RBC) [Mass/Vol] 32.7 g/dL Normal 29.9-35.2 [facility] Comment on above: Performed By: #### P SARIAH, FT4 #### [facility] [address] [place] [address] Dr. Emiliano Sheehan MCV (RBC) [Entitic vol] 95.6 fL Critically high 80.0-94.0 [facility] Comment on above: Performed By: #### P SARIAH, FT4 #### [facility] [address] [place] [address] Dr. Emiliano Sheehan MONO # 0.8 103/ul Normal 0.3-0.8 [facility] Comment on above: Performed By: #### P SARIAH, FT4 #### [facility] [address] [place] [address] Dr. Emiliano Sheehan Monocytes/100 WBC (Bld) 9.4 % Normal 1.7-12.0 [facility] Comment on above: Performed By: #### P SAD, FT4 #### [facility] [address] [place] [address] Dr. Emiliano Sheehan NEUT # 4.9 103/ul Normal 1.4-6.5 [facility] Comment on above: Performed By: #### P SAD, FT4 #### [facility] [address] [place] [address] Dr. Emiliano Sheehan Neutrophils/100 WBC (Bld) 57.4 % Normal 43.0-75.0 [facility] Comment on above: Performed By: #### P SAD, FT4 #### [facility] [address] [place] [address] Dr. Emiliano Sheehan Platelet mean volume (Bld) [Entitic vol] 8.8 fL Critically low 9.5-13.5 [facility] Comment on above: Performed By: #### P SAD, FT4 #### [facility] [address] [place] [address] Dr. Emiliano Sheehan PLT 210 103/ul Normal 150-450 [facility] Comment on above: Performed By: #### P SAD, FT4 #### [facility] [address] [place] [address] Dr. Emiliano Sheehan RBC 4.13 106/ul Critically low 4.70-6.10 [facility] Comment on above: Performed By: #### P SAD, FT4 #### [facility] [address] [place] [address] Dr. Emiliano Sheehan WBC 8.6 103/ul Normal 4.0-11.0 [facility] Comment on above: Performed By: #### P SAD, FT4 #### [facility] [address] [place] [address] Dr. Emiliano Sheehan FREE T3on 12-01-2021 FREE T3 2.20 pg/mlL Normal 2.18-3.98 [facility] Comment on above: Performed By: #### T SH, FT3, LIPID, CMP #### [facility] [address] [address] [address] Emiliano Sheehan FREE T4on 12-01-2021 Free T4 [Mass/Vol] 1.11 ng/dL Normal 0.76-1.46 [facility] Comment on above: Performed By: #### P SAD, FT4 #### [facility] [address] [address] [address] Emiliano Sheehan LIPID PROFILEon 12-01-2021 CHOL-HDL RATIO NORM SEE BELOW Normal [facility] Comment on above: Result Comment: 3.3 - 4.4 LOW RISK 4.4 - 7.1 AVERAGE RISK 7.1 - 11.0 MODERATE RISK >11.0 HIGH RISK Performed By: #### T SH, FT3, LIPID, CMP #### [facility] [address] [place] [address] Dr. Emiliano Sheehan Cholesterol [Mass/Vol] 146 mg/dL Normal <=200 [facility] Comment on above: Performed By: #### T SH, FT3, LIPID, CMP #### [facility] [address] [place] [address] Dr. Emiliano Sheehan Cholesterol in HDL [Mass/Vol] 41 mg/dL Normal 40-60 [facility] Comment on above: Performed By: #### T SH, FT3, LIPID, CMP #### [facility] [address] [place] [address] Dr. Emiliano Sheehan Cholesterol in LDL [Mass/Vol] 59.8 mg/dL Normal [facility] Comment on above: Performed By: #### T SH, FT3, LIPID, CMP #### [facility] [address] [place] [address] Dr. Emiliano Sheehan Cholesterol.total/Chol esterol in HDL [Mass ratio] 3.6 {ratio} Normal [facility] Comment on above: Performed By: #### T SH, FT3, LIPID, CMP #### [facility] [address] [place] [address] Dr. Emiliano Sheehan HDL NORMAL > or = 60 mg/dl - LOW CARDIOVASCULAR RISK <40 mg/dl - HIGH CARDIOVASCULAR RISK Normal [facility] Comment on above: Performed By: #### T SH, FT3, LIPID, CMP #### [facility] [address] [place] [address] Dr. Emiliano Sheehan LDL CALC NORMAL SEE BELOW Normal [facility] Comment on above: Result Comment: <100 mg/dl OPTIMAL 100 - 129 mg/dl NEAR OR ABOVE OPTIMAL 130 - 159 mg/dl BORDERLINE HIGH 160 - 189 mg/dl HIGH >190 mg/dl VERY HIGH Performed By: #### T SH, FT3, LIPID, CMP #### [facility] [address] [address] [address] Emiliano Sheehan Triglyceride [Mass/Vol] 226 mg/dL Critically high <=150 [facility] Comment on above: Performed By: #### T SH, FT3, LIPID, CMP #### [facility] [address] [place] [address] Dr. Emiliano Sheehan VLDL CALC 45.2 mg/dL Normal [facility] Comment on above: Performed By: #### T SH, FT3, LIPID, CMP #### [facility] [address] [place] [address] Dr. Emiliano Sheehan PROF 14(COMP METB)on 022 Albumin [Mass/Vol] 4.2 g/dL Normal 3.4-5.0 [facility] Comment on above: Performed By: #### T SH, FT3, LIPID, CMP #### [facility] [address] [place] [address] Dr. Emiliano Sheehan Albumin/Globulin [Mass ratio] 1.2 {ratio} Normal [facility] Comment on above: Performed By: #### T SH, FT3, LIPID, CMP #### [facility] [address] [place] [address] Dr. Emiliano Sheehan ALP [Catalytic activity/Vol] 82 U/L Normal 46-116 [facility] Comment on above: Performed By: #### T SH, FT3, LIPID, CMP #### [facility] [address] [place] [address] Dr. Emiliano Sheehan ALT [Catalytic activity/Vol] 26 U/L Normal 16-63 [facility] Comment on above: Performed By: #### T SH, FT3, LIPID, CMP #### [facility] [address] [place] [address] Dr. Emiliano Sheehan Anion gap [Moles/Vol] 13.1 mmol/L Normal [facility] Comment on above: Performed By: #### T SH, FT3, LIPID, CMP #### [facility] [address] [place] [address] Dr. Emiliano Sheehan AST [Catalytic activity/Vol] 12 U/L Critically low 15-37 [facility] Comment on above: Performed By: #### T SH, FT3, LIPID, CMP #### [facility] [address] [place] [address] Dr. Emiliano Sheehan Bilirubin [Mass/Vol] 0.8 mg/dL Normal 0.2-1.0 [facility] Comment on above: Performed By: #### T SH, FT3, LIPID, CMP #### [facility] [address] [place] [address] Dr. Emiliano Sheehan Calcium [Mass/Vol] 9.2 mg/dL Normal 8.5-10.1 [facility] Comment on above: Performed By: #### T SH, FT3, LIPID, CMP #### [facility] [address] [place] [address] Dr. Emiliano Sheehan Chloride [Moles/Vol] 103 mmol/L Normal 98-107 [facility] Comment on above: Performed By: #### T SH, FT3, LIPID, CMP #### [facility] [address] [place] [address] Dr. Emiliano Sheehan CO2 [Moles/Vol] 27.2 mmol/L Normal 21.0-32.0 [facility] Comment on above: Performed By: #### T SH, FT3, LIPID, CMP #### [facility] [address] [place] [address] Dr. Emiliano Sheehan Creatinine [Mass/Vol] 1.22 mg/dL Normal 0.70-1.30 [facility] Comment on above: Performed By: #### T SH, FT3, LIPID, CMP #### [facility] [address] [place] [address] Dr. Emiliano Sheehan EGFR-AF LUXEMBOURGER >60 Normal >=60 [facility] Comment on above: Performed By: #### T SH, FT3, LIPID, CMP #### [facility] [address] [place] [address] Dr. Emiliano Sheehan EGFR-NON AF LUXEMBOURGER 59 mL/min/1.73m2 Critically low >=60 [facility] Comment on above: Performed By: #### T SH, FT3, LIPID, CMP #### [facility] [address] [place] [address] Dr. Emiliano Sheehan Globulin (S) [Mass/Vol] 3.5 g/dL Normal [facility] Comment on above: Performed By: #### T SH, FT3, LIPID, CMP #### [facility] [address] [place] [address] Dr. Emiliano Sheehan Glucose [Mass/Vol] 159 mg/dL Critically high 74-106 [facility] Comment on above: Performed By: #### T SH, FT3, LIPID, CMP #### [facility] [address] [place] [address] Dr. Emiliano Sheehan Potassium [Moles/Vol] 4.3 mmol/L Normal 3.5-5.1 [facility] Comment on above: Performed By: #### T SH, FT3, LIPID, CMP #### [facility] [address] [place] [address] Dr. Emiliano Sheehan Protein [Mass/Vol] 7.7 g/dL Normal 6.4-8.2 [facility] Comment on above: Performed By: #### T SH, FT3, LIPID, CMP #### [facility] [address] [place] [address] Dr. Emiliano Sheehan Sodium [Moles/Vol] 139 mmol/L Normal 136-145 [facility] Comment on above: Performed By: #### T SH, FT3, LIPID, CMP #### [facility] [address] [place] [address] Dr. Emiliano Sheehan Urea nitrogen [Mass/Vol] 19.0 mg/dL Critically high 7.0-18.0 [facility] Comment on above: Performed By: #### T SH, FT3, LIPID, CMP #### [facility] [address] [address] [address] Emiliano Sheehan Urea nitrogen/Creatinine [Mass ratio] 15.6 mg/mg Normal [facility] Comment on above: Performed By: #### T SH, FT3, LIPID, CMP #### [facility] [address] [address] [address] Emiliano Sheehan TSHon 12-01-2021 TSH 4.588 uIU/mL Critically high 0.358-3.740 [facility] Comment on above: Performed By: #### T SH, FT3, LIPID, CMP #### [facility] [address] [address] [address] Emiliano Sheehan Vital Signs Date Time Vital Sign Value Performing Clinician Facility 12-27-2023 13:07-0500 Hourly Rounding Jose Szclydeki [facility] 12-27-2023 13:07-0500 Promise to Return Jose Szynkowski [facility] 12-27-2023 12:07-0500 Hourly Rounding Jose Szynkowski [facility] 12-27-2023 12:07-0500 Promise to Return Jose Szynkowski [facility] 12-27-2023 11:17-0500 Diastolic blood pressure 84 mm[Hg] Jose Szynkowski [facility] 12-27-2023 11:17-0500 Heart rate 74 /min Jose Szynkowski [facility] 12-27-2023 11:17-0500 Mean blood pressure 105 mm[Hg] Jose Szynkowski [facility] 12-27-2023 11:17-0500 Systolic blood pressure 147 mm[Hg] Jose Szynkowski [facility] 12-27-2023 11:10-0500 Hourly Rounding Jose Szynkowski [facility] 12-27-2023 11:10-0500 Promise to Return Jose Szynkowski [facility] 12-27-2023 11:07-0500 Heart rate 77 /min Jose Szynkowski [facility] 12-27-2023 11:07-0500 SaO2% (BldA) [Mass fraction] 97 % Jose Szynkowski [facility] 12-27-2023 11:07-0500 Diastolic blood pressure 90 mm[Hg] Jose Szynkowski [facility] 12-27-2023 11:07-0500 Mean blood pressure 113 mm[Hg] Jose Szynkowski [facility] 12-27-2023 11:07-0500 Systolic blood pressure 160 mm[Hg] Jose Szynkowski [facility] 12-27-2023 11:06-0500 Body temperature 97.7 [degF] Jose Szynkowski [facility] 12-27-2023 08:17-0500 Diastolic blood pressure 80 mm[Hg] Jose Szynkowski [facility] 12-27-2023 08:17-0500 Heart rate 76 /min Jose Szynkowski [facility] 12-27-2023 08:17-0500 Systolic blood pressure 151 mm[Hg] Jose Lavonynkowski [facility] 12-27-2023 07:29-0500 Heart rate 76 /min Jose Lavonynkowski [facility] 12-27-2023 07:29-0500 SaO2% (BldA) [Mass fraction] 96 % Jose Anishkowski [facility] 12-27-2023 07:26-0500 Mean blood pressure 103 mm[Hg] Joseerick Oconnellkowski [facility] 12-27-2023 07:26-0500 Body temperature 98.06 [degF] Jose Lavonynkowski [facility] 12-27-2023 04:32-0500 Body temperature 97.88 [degF] Joseerick Dollynkowski [facility] 12-27-2023 04:32-0500 Heart rate 77 /min Joseerick Oconnellkowski [facility] 12-27-2023 04:32-0500 Mean blood pressure 110 mm[Hg] Joseerick Oconnellkowski [facility] 12-27-2023 04:32-0500 Respiratory rate 16 /min Joseelan Oconnellkowski [facility] 12-27-2023 04:32-0500 SaO2% (BldA) [Mass fraction] 98 % Joseerick Oconnellkowski [facility] 12-27-2023 00:22-0500 Body temperature 97.88 [degF] Jose Szynkowski [facility] 12-27-2023 00:22-0500 Heart rate 76 /min Jose Szynkowski [facility] 12-27-2023 00:22-0500 Mean blood pressure 97 mm[Hg] Jose Solis [facility] 12-27-2023 00:22-0500 Respiratory rate 16 /min Jose Solis [facility] 12-26-2023 21:53-0500 Blood Pressure Location Jose Solis [facility] 12-26-2023 21:53-0500 Body temperature 98.24 [degF] Jose Solis [facility] 12-26-2023 21:53-0500 Heart rate 79 /min Jose Solis [facility] 12-26-2023 21:00-0500 gluc 154 mg/dL Jose Solis [facility] 12-21-2023 13:34-0400 Body height 170.2 cm Hugo Power DO Work Phone: [facility] 12-21-2023 13:34-0400 Body mass index (BMI) [Ratio] 35.24 kg/m2 Hugo Power DO Work Phone: [facility] 12-21-2023 13:34-0400 Body weight 102.06 kg Hugo Power DO Work Phone: [facility] 12-14-2023 11:05-0400 Body height 170.2 cm Pacc 2 Work Phone: [facility] 12-14-2023 11:05-0400 Body mass index (BMI) [Ratio] 36.81 kg/m2 Pacc 2 Work Phone: [facility] 12-14-2023 11:05-0400 Body weight 106.59 kg Pacc 2 Work Phone: [facility] 11-16-2023 14:36-0400 Body height 170.2 cm Hugo Murcek DO Work Phone: [facility] 11-16-2023 14:36-0400 Body mass index (BMI) [Ratio] 35.24 kg/m2 Hugo Murcek DO Work Phone: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 informed of the risks [...] or any previous visit (from the past 72389 hour(s)). Instructions Given to Patient: Instructions located in the after visit summary. Patient given verbal and written preop instructions and voices comprehension and compliance. SIGNATURE: Jean Pierre Hollis PA-C PATIENT NAME: Jocelyn Hussein DATE: December 14, 2023 TIME: 3:38 PM PAGER/CONTACT #: documented in this encounter [facility] 12-07-2023 Telephone encounter Note Radiology Service [...] Escalera RN December 07, 2023 4:[address] [facility] 12-07-2023 Miscellaneous Notes Radiology Service Pre [...] 2023 4:01 PM documented in this encounter [facility] 12-07-2023 Telephone encounter Note Radiology Service [...] Escalera RN December 07, 2023 3:[address] [facility] 12-07-2023 Miscellaneous Notes Radiology Service Pre [...] 2023 3:50 PM documented in this encounter [facility] 12-07-2023 Telephone encounter Note Radiology Service Pre Anesthesia Telephone Call PATIENT NAME: Jocelyn Hussein DATE OF CALL: December 07, 2023 TIME: 12:13 PM PATIENT TYPE: This nurse called the pt to offer education about anxiolysis but there was no answer so a detailed message was left along with a call back number. SIGNED BY: Amna Escalera RN December 07, 2023 12:[address] [facility] 12-07-2023 Miscellaneous Notes Radiology Service Pre [...] 2023 12:13 PM documented in this encounter [facility] 11-16-2023 History of Present illness Narrative [...] in a month documented in this encounter [facility] 11-04-2023 History of Present illness Narrative mmm documented in this encounter [facility] 10-31-2023 History of Present illness Narrative Allergies as of 10/31/2023 - Reviewed 10/31/2023 Allergen Reaction Noted Lisinopril Unknown 07/20/2023 Past Medical History: Diagnosis Date Arthralgia of hip 10/29/2023 ASCVD (arteriosclerotic cardiovascular disease) ([facility]) Asthma ([facility]) 10/29/2023 Back pain with right-sided sciatica 10/29/2023 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 10/29/2023 Cervical radiculopathy Class 3 obesity ([facility]) 10/29/2023 Diabetic nephropathy ([facility]) 10/29/2023 DM (diabetes mellitus) ([facility]) Gout 10/29/2023 Hearing aid worn 02/21/2009 Hearing loss Hearing loss 10/29/2023 Heart disease High blood pressure ([facility]) 02/21/2009 History of claustrophobia 02/21/1989 History of nephrolithiasis 10/29/2023 HTN (hypertension) ([facility]) HTN (hypertension) ([facility]) 10/29/2023 Hyperlipidemia ([facility]) 10/29/2023 Hypertriglyceridemia ([facility]) 10/29/2023 Hypothyroidism ([facility]) 10/29/2023 Internal derangement of left knee 10/29/2023 Left knee pain 10/29/2023 Nephrolithiasis Osteoarthritis of left knee 10/29/2023 Osteoarthritis, 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 Prostate disorder 10/29/2023 Pure hypercholesterolemia ([facility]/HCC) 10/29/2023 Right groin pain 10/29/2023 Sciatica 10/29/2023 Screening PSA (prostate specific antigen) 10/29/2023 Sensorineural hearing loss (SNHL) of both ears Sensorineural hearing loss, bilateral 10/29/2023 Skin cancer screening 10/29/2023 Sleep apnea Sleep apnea 07/21/2008 Stage 3a chronic kidney disease (CKD) ([facility]) 10/29/2023 linked HTN with CKD per OP CDI policy. Type 2 diabetes mellitus with hyperlipidemia ([facility]) 10/03/2015 Current Outpatient Medications: allopurinol (Zyloprim) 300 MG tablet, Take 300 mg by mouth Daily, Disp: , Rfl: atorvastatin (Lipitor) 10 MG tablet, See Instructions, TAKE 1 TABLET BY MOUTH EVERY DAY, # 30 tab(s), Refills(s) 0, Pharmacy: [id number], 170.2, cm, 01/03/23 9:22:00 EST, Height/Length Dosing, [...] consented to proceed. documented in this encounter [facility] 10-11-2023 Note Patient Education Cardiovascular Hypertension, Adult [...] wine (148 mL), (more content not included)... [facility] 09-06-2023 Note Patient Education BMI for Adults [...] numbers. This can be done either in [place]ian ([place] or metric measurements. Note that charts and online BMI calculators are available to help you find your BMI quickly and easily without having to do these calculations yourself. To calculate your BMI in [place] ([place] measurements: 1. Measure your weight in [...] for Disease Control and Prevention: www.cdc.gov ? [place] [employer]: www.heart.org ? National Heart, Lung, and Blood [place]: www.nhlbi.nih.gov Summary ? Body mass index (BMI) is a number that is calculated from a person's weight and height. ? BMI may help estimate how much of a person's weight is composed of fat. BMI can help identify those who may be at higher risk for certain medical problems. ? BMI can be measured using Fijian measurements or metric measurements. ? BMI charts are used to identify whether you are underweight, normal weight, overweight, or obese. This information is not intended to replace advice given to you by your health care provider. Make sure you discuss any questions you have with your health care provider. Document Revised: 10/31/2019 Document Reviewed: 09/07/2019 [employer] Patient Education ? 2022 CUPR. Nutrition BMI for Adults What is BMI? [...] Identifying a weight (more content not included)... [facility] 01-27-2022 Note OPERATIVE NOTE OPERATION DATE: 01/27/2022 [...] good condition. CC: Casper Womack M.D. [facility] Evaluation + Plan note No data available for this section [facility] [place] Evaluation + Plan note Future Appointments Appointment Date:12/24/2022 08:00:00 AM Scheduled Provider: Location:[facility] Appointment Type: Medicare Wellness Subsequent Appointment Date:12/30/2022 03:20:00 PM Scheduled Provider:Shivani Limon MD Location:[facility] Appointment Type: Open [facility] Evaluation + Plan note Future Appointments Appointment Date:06/23/2023 08:00:00 AM Scheduled Provider:Shivani Limon MD Location:[facility] Appointment Type: Open Appointment Date:01/09/2024 08:00:00 AM Scheduled Provider: Location:[facility] Appointment Type: Medicare Wellness Subsequent Future Scheduled TestsNM Myocardial Spect Rest/Stress 1 Day 12/30/22 [facility] [place] Evaluation + Plan note Future Appointments Appointment Date:01/09/2024 08:00:00 AM Scheduled Provider: Location:[facility] Appointment Type: Medicare Wellness Subsequent Appointment Date:01/09/2024 08:45:00 AM Scheduled Provider:Shivani Limon MD Location:[facility] Appointment Type: Open Future Scheduled TestsNM Myocardial Spect Rest/Stress 1 Day 12/30/22 [facility] Evaluation + Plan note Future Appointments Appointment Date:10/13/2023 10:40:00 AM Scheduled Provider: Location:[facility] Appointment Type: Lab Draw Appointment Date:01/09/2024 08:00:00 AM Scheduled Provider: Location:[facility] Appointment Type: Medicare Wellness Subsequent Appointment Date:01/09/2024 08:45:00 AM Scheduled Provider:Shivani Limon MD Location:[facility] Appointment Type: Open Diagnostic Tests PendingUrine Culture 10/12/23 Future Scheduled TestsUA with Cult Rflx 10/11/60AwqG5w 10/11/23NM Myocardial Spect Rest/Stress 1 Day 12/30/22 [facility] Evaluation + Plan note Future Appointments Appointment Date:01/09/2024 08:00:00 AM Scheduled Provider: Location:[facility] Appointment Type: Medicare Wellness Subsequent Appointment Date:01/09/2024 08:45:00 AM Scheduled Provider:Shivani Limon MD Location:[facility] Appointment Type:FM Open Appointment Date:01/09/2024 10:00:00 AM Scheduled Provider:Fidelina CONKLIN MD Location:[facility] Appointment Type:URO New Patient Future Scheduled TestsUA with Cult Rflx 21/45IggS9c 10/11/23NM Myocardial Spect Rest/Stress 1 Day 12/30/22CT Head or Brain w/o Contrast 01/10/24 [facility] Evaluation + Plan note Future Appointments Appointment Date:01/08/2025 08:00:00 AM Scheduled Provider: Location:[facility] Appointment Type: Medicare Wellness Subsequent Diagnostic Tests PendingHCV Antibody RFX to Quant PCR 01/09/24 Future Scheduled TestsUA with Cult Rflx 8/21/12YoeS3v 01/08/62VplS5w 10/11/23CT Head or Brain w/o Contrast 01/10/24 [facility] Evaluation + Plan note Future Appointments Appointment Date:01/08/2025 08:00:00 AM Scheduled Provider: Location:[facility] Appointment Type: Medicare Wellness Subsequent Future Scheduled TestsUA with Cult Rflx 8/21/87VdxV3p 01/08/60NixK2h 10/11/23 [facility] Evaluation + Plan note Future Appointments Appointment Date:01/08/2025 08:00:00 AM Scheduled Provider: Location:[facility] Appointment Type: Medicare Wellness Subsequent Future Scheduled TestsUA with Cult Rflx 8/21/75WpuY8j /18/45OypL5r 10/11/23Echo Transthoracic Complete 04/23/24 [facility] Evaluation note No assessment inform ation [facility] Work Phone: Evaluation note Diagnosis Pre-op [...] BP at home 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 Sleep on 2 pillows 2. Small amount of Vaseline to sutures twice daily 3. Okay to shower late tomorrow morning, keep wound dry and clean 3. Take antibiotic as prescribed 4. Tylenol or Motrin for discomfort 6. See Dr. Power in 1 [facility] Work Phone: Progress note No data available for this section [facility] [place] Summary Purpose Family History No Family History [...] November 04, 2023 End: November 04, 2023 Project Management Instructor Relationship Specialty Start Date End Date Casper Womack MD [address] [place] [address] PCP - General 06/01/00 Project Management Instructor Relationship Specialty Start Date End Date Casper Womack MD [address] [place] [address] PCP - General 06/01/00 Shivani Limon MD [address] [place] [address] Referring Family Medicine 12/13/23 Project Management Instructor Relationship Specialty Start Date End Date Shivani Limon MD [address] [place] [address] PCP - General Family Medicine 12/15/23 Shivani Limon MD [address] [facility] [place] [address] Referring Family Medicine 12/13/23 Project Management Instructor Relationship Specialty Start Date End Date Shivani Limon MD [address] [place] [address] PCP - General Family Medicine 12/15/23 Shivani Limon MD [address] [place] [place] [address] Referring Family Medicine 12/13/23 Project Management Instructor Relationship Specialty Start Date End Date Shivani Limon MD [address] [place] [address] PCP - General Family Medicine 12/15/23 Shivani Limon MD [address] [place] [address] Referring Family Medicine 12/13/23 Project Management Instructor Relationship Specialty Start Date End Date Shivani Limon MD [address] [place] [address] PCP - General Family Medicine 12/15/23 Shivani Limon MD [address] [place] [address] Referring Family Medicine 12/13/23 Project Management Instructor Relationship Specialty Start Date End Date Shivani Limon MD [address] [place] [address] PCP - General Family Medicine 12/15/23 Shivani Limon MD [address] [place] [address] Referring Family Medicine 12/13/23 Project Management Instructor Relationship Specialty Start Date End Date Shivani Limon MD [address] [place] [facility] [address] PCP - General Family Medicine 10/31/23 Nancy Deluca PA [address] [place] [address] [place] [phone] Physician Hydraulic Riveter Dermatology 11/16/23 Hugo Power DO [address] [place] [address] Otolaryngology 11/16/23 Project Management Instructor Relationship Specialty Start Date End Date Shivani Limon MD [address] [place] [address] PCP - General Family Medicine 10/31/23 Nancy Deluca PA [address] [place] [address] [place] [phone] Physician Hydraulic Riveter Dermatology 11/16/23 Hugo Power DO [address] [place] [address] Otolaryngology 11/16/23 Project Management Instructor Relationship Specialty Start Date End Date Shivani Limon MD [address] [place] [address] PCP - General Family Medicine 10/31/23 Project Management Instructor Relationship Specialty Start Date End Date Shivani Limon MD [address] [place] [address] PCP - General Family Medicine 10/31/23 Project Management Instructor Relationship Specialty Start Date End Date Shivani Limon MD [address] [place] [facility] [place] [address] PCP - General Family Medicine 10/31/23 Project Management Instructor Relationship Specialty Start Date End Date Shivani Limon MD [address] [place] [address] PCP - General Family Medicine 10/31/23 Project Management Instructor Relationship Specialty Start Date End Date Shivani Limon MD [address] [place], [place] [phone] PCP - General [facility] 10/31/23 Project Management Instructor Relationship Specialty Start Date End Date Shivani Limon MD [address] [place] [id number] PCP - General Family Medicine 10/31/23 Nancy Deluca PA [address] [facility] [address] [place] [address] Physician Hydraulic Riveter Dermatology 11/16/23 Hugo Power DO [address] [place] [address] Otolaryngology 11/16/23 Project Management Instructor Relationship Specialty Start Date End Date Shivani Limon MD [address] [place] [address] PCP - General Family Medicine 10/31/23 Nancy Deluca PA [address] [facility] [address] [place] [phone] Physician Hydraulic Riveter Dermatology 11/16/23 Hugo Power DO [address] [place] [address] Otolaryngology 11/16/23 (unrecognized sect ion and content) [...] CREATED AUTHOR AUTHOR'S ORGANIZ ATION 10/14/2023 [facility] DATE CREATED AUTHOR AUTHOR'S ORGANIZ ATION 10/16/2023 [facility] DATE CREATED AUTHOR AUTHOR'S ORGANIZ ATION 12/18/2023 [facility] DATE CREATED AUTHOR AUTHOR'S ORGANIZ ATION 12/20/2023 [facility] DATE CREATED AUTHOR AUTHOR'S ORGANIZ ATION 12/21/2023 [facility] DATE CREATED AUTHOR AUTHOR'S ORGANIZ ATION 12/23/2023 [facility]IC DATE CREATED AUTHOR AUTHOR'S ORGANIZ ATION 12/28/2023 [facility] DATE CREATED AUTHOR AUTHOR'S ORGANIZ ATION 12/31/2023 [facility] DATE CREATED AUTHOR AUTHOR'S ORGANIZ ATION 01/12/2024 [facility] DATE CREATED AUTHOR AUTHOR'S ORGANIZ ATION 01/13/2024 [facility] DATE CREATED AUTHOR AUTHOR'S ORGANIZ ATION 01/15/2024 [facility] DATE CREATED AUTHOR AUTHOR'S ORGANIZ ATION 01/19/2024 [facility] DATE CREATED AUTHOR AUTHOR'S ORGANIZ ATION 03/06/2024 [facility] DATE CREATED AUTHOR AUTHOR'S ORGANIZ ATION 06/08/2024 [facility] Goals (unrecognized section and content) Goals may be documented in a n alternate section Source Comments (unrecognize d section and content) In the event this informatio n is protected by the Federal Confidentiality of Alcohol and Drug Abuse Patient Records regulations: The Federal rules restrict any use of the information to criminally investigate or prosecute any alcohol or drug abuse patient.[facility] the event this information is protected by the Federal Confidentiality of Alcohol and Drug Abuse Patient Records regulations: The Federal rules restrict any use of the information to criminally investigate or prosecute any alcohol or drug abuse patient.[facility] the event this information is protected by the Federal Confidentiality of Alcohol and Drug Abuse Patient Records regulations: The Federal rules restrict any use of the information to criminally investigate or prosecute any alcohol or drug abuse patient.[facility] the event this information is protected by the Federal Confidentiality of Alcohol and Drug Abuse Patient Records regulations: The Federal rules restrict any use of the information to criminally investigate or prosecute any alcohol or drug abuse patient.[facility] the event this information is protected by the Federal Confidentiality of Alcohol and Drug Abuse Patient Records regulations: The Federal rules restrict any use of the information to criminally investigate or prosecute any alcohol or drug abuse patient.[facility] the event this information is protected by the Federal Confidentiality of Alcohol and Drug Abuse Patient Records regulations: The Federal rules restrict any use of the information to criminally investigate or prosecute any alcohol or drug abuse patient.[facility] the event this information is protected by the Federal Confidentiality of Alcohol and Drug Abuse Patient Records regulations: The Federal rules restrict any use of the information to criminally investigate or prosecute any alcohol or drug abuse patient.[facility] the event this information is protected by the Federal Confidentiality of Alcohol and Drug Abuse Patient Records regulations: The Federal rules restrict any use of the information to criminally investigate or prosecute any alcohol or drug abuse patient.[facility] the event this information is protected by the Federal Confidentiality of Alcohol and Drug Abuse Patient Records regulations: The Federal rules restrict any use of the information to criminally investigate or prosecute any alcohol or drug abuse patient.[facility] Reason for Visit (unrecogniz ed section [...] BE BASED ON THE PRIMARY CLINICAL RECORDS. [employer] provides no warranty or guarantee of the accuracy or completeness of information in this document.
--- NOTE | 2024-12-06 10:19 | PM.CN ---
Consult Note: HPI Data of Consult Patient: known to practice within the last 3 years Requesting Physician: Alicja Escobar NP Primary Care Provider: Francesco Rascon MD Consult Narrative Reason for consult: f/u Narrative: Kojo Saeed a 69 year old male presents for evaluation and management of low back pain. Pt has a longstanding history of back pain, prior imaging consistent with lumbar spondylosis, lumbar ddd. pt failed >6 weeks of PT/HEP. utilizes mobic and baclofen, failed tylenol. patient last evaluated 06/06/24 and pain has been well controlled since. Patient has now established with Dr Rascon for primary care coverage. TOM 16% cc:: CC: Alicja Escobar NP [facility] Medical History (Updated 12/06/24 @ 10:21 by Alicja Escobar NP) Hearing deficit ?H91.90 - Unspecified hearing loss, unspecified ear (ICD-10) History of nephrolithotomy with removal of calculi ?Z98.890 - Other specified postprocedural states (ICD-10) ?Z87.442 - Personal history of urinary calculi (ICD-10) Melanoma ?C43.9 - Malignant melanoma of skin, unspecified (ICD-10) Diabetes ?E11.9 - Type 2 diabetes mellitus without complications (ICD-10) Kidney stone ?N20.0 - Calculus of kidney (ICD-10) Sleep apnea ?G47.30 - Sleep apnea, unspecified (ICD-10) HTN (hypertension) ?I10 - Essential (primary) hypertension (ICD-10) Surgical History H/O melanoma excision ?Z98.890 - Other specified postprocedural states (ICD-10) ?Z85.820 - Personal history of malignant melanoma of skin (ICD-10) History of cataract extraction ?Z98.49 - Cataract extraction status, unspecified eye (ICD-10) Social History Smoking status: Never smoker Little interest or pleasure in doing things: not at all Feeling down, depressed, or hopeless: not at all Meds Home Medications and Allergies Home Medications ?Medication ?Instructions ?Recorded ?Confirmed ?Type allopurinol 300 mg tablet 300 mg PO DAILY 01/02/24 02/20/24 History atorvastatin 10 mg tablet 10 mg PO DAILY 01/02/24 02/20/24 History levothyroxine 75 mcg tablet 75 mcg PO DAILY 01/02/24 02/20/24 History losartan 100 1 tab PO DAILY 01/02/24 02/20/24 History mg-hydrochlorothiazide 12.5 mg tablet meloxicam 15 mg tablet 15 mg PO DAILY 01/02/24 02/20/24 History metformin 500 mg tablet,extended 1,000 mg PO BID 01/02/24 02/20/24 History release 24 hr diazepam 10 mg tablet (Valium) 10 mg PO ONCE 01/16/24 02/20/24 History baclofen 10 mg tablet 10 mg PO TID PRN muscle spasm #90 02/09/24 02/20/24 Rx tabs baclofen 10 mg tablet 10 mg PO TID PRN muscle spasm #90 11/08/24 Rx tabs Allergies Allergy/AdvReac Type Severity Reaction Status Date / Time lisinopril Allergy Mild Cough Verified 02/20/24 11:04 Exam Constitutional Documenting provider has reviewed patient's vital signs: yes Common normals: no apparent distress, oriented x3, healthy appearing, alert and well nourished General appearance: cooperative HENIA Common normals: normocephalic, hearing grossly normal bilaterally and moist oral mucous membranes Head and scalp: normocephalic Eye Common normals: PERRL Pupil: PERRL Neck & C-Spine Common normals: full ROM General: normal visual inspection Chest Common normals: inspection of chest normal Respiratory Common normals: normal respiratory effort, no retractions and no use of accessory muscles Back & Pelvis Lumbar spine/lower back: pain with ROM, lumbar spinal tenderness and straight leg raise negative bilaterally Neuro Common normals: oriented x3 Sensorium/orientation: alert Psych Common normals: mental status grossly normal, thought process normal, cooperative, affect normal, speech normal and activity/motor behavior normal Speech: normal speech Thought process: normal thought process Results Additional Findings Additional findings: If on a controlled substance or opioids, I have checked an [place] report on this patient and there are no aberrancies noted in the prescribing history.??If on a controlled substance or opioid a drug screen was completed and reviewed within the last year, and if there has not been a drug screen completed we ordered one today to monitor higher risk, state monitored pain medication use. As part of providing excellent, safe, comprehensive care, the following was completed at our patient's visit: 1. A medication reconciliation and review to ensure accurate knowledge of current/active medications, including asking our patients to inform us about any cpcz-mze-dkqldgn medications or herbal remedies/nutritional supplements/alternative remedies. 2. A review to specifically ensure our patients have had annual screening for screening for depression, screening for tobacco use, and screening for unhealthy alcohol use. For concerning screenings had a discussion with the patient, provided patient education, and recommended follow-up with primary care provider when appropriate. If patient noted with a risk of falling, they received education on strength, gait, and balance training to prevent future risk of falling. Portions of this note may have been carried over from the previous visit and updated as appropriate. Please note this office utilizes paper charting in addition to the electronic medical record. A list of current medications, vitals, and PMH is available there as the clinical staff outside of myself do not have access to [employer] charting during the clinic day operations. As part of providing quality comprehensive care the current medications, vitals, and PMH were reviewed in the paper chart. Assessment and Plan Assessment and Plan (1) Chronic kidney disease: (2) Lumbar spondylosis: (3) Lumbar stenosis with neurogenic claudication: (4) Sacroiliitis: (5) Myofascial pain: Plan pain well controlled, however with CKD less than 40 i recommend pt limit NSAID use and discuss further with PCP if he has not already. Pt denies side effects to current medication regimen. will change meloxicam 7.5mg BID PRN pain, advised to utilize sparingly. change baclofen 10mg BID PRN pain/spasms. f/u 6 months, sooner if needed
== END 2024-12-06 09:50 | disposition home or self-care (01) ==
PROVIDERS: PCP Family Medicine; Visit Provider Nurse Practitioner
DX: N18.9 Chronic kidney disease, unspecified (principal); M47.816 Spondylosis without myelopathy or radiculopathy, lumbar region; M48.062 Spinal stenosis, lumbar region with neurogenic claudication; M46.1 Sacroiliitis, not elsewhere classified; M79.18 Myalgia, other site
CPT/HCPCS: G0463